=== PATIENT | female | born 1970 | race Caucasian/White ===

== ENCOUNTER 2020-03-29 09:05 | Outpatient (REF) | payer OTHER, SELFPAY ==
--- NOTE | 2020-03-29 | US_ITS ---
EXAMINATION: US THYROID CLINICAL INFORMATION: Nontoxic multinodular goiter. COMPARISON: Ultrasound thyroid 09/11/2019 and 04/20/2019. TECHNIQUE: Linear transducer deng-scale and color Doppler examination with attention to the region of the thyroid. FINDINGS: SIZE: Measurements of the thyroid lobes and nodules are given in sagittal, anteroposterior and transverse dimensions respectively. Right thyroid lobe: 4.9 x 2.3 x 2.2 cm, volume 13.0 mL. Previously 5.3 x 2.5 x 2.0 cm, volume 14.0 mL. Left thyroid lobe: 4.1 x 1.2 x 1.7 cm, volume 4.4 mL. Previously 4.6 x 1.2 x 1.4 cm, volume 4.0 mL. Isthmus: 0.5 cm in maximum AP dimension. Previously 0.5 cm. PARENCHYMA: The gland echotexture is homogeneous. Thyroid vascularity is normal. RIGHT THYROID LOBE: There is 1 nodule seen. 1. Location: Mid. Size: 1.9 x 1.6 x 1.8 cm. Previous: 2.0 x 1.7 x 1.7 cm. Nodule characteristics: Heterogeneous and complex cystic, smooth margin with hypoechoic rind, no calcification and positive intranodular flow. ISTHMUS: No nodules. LEFT THYROID LOBE: There are 3 nodules seen. 1. Location: Upper. Size: 0.5 x 0.3 x 0.5 cm. Previous: 0.4 x 0.3 x 0.4 cm. Nodule characteristics: Hypoechoic, slightly irregular margin, no calcification and no intranodular flow. 2. Location: Mid. Size: 0.4 x 0.3 x 0.4 cm. Previous: 0.3 x 0.4 x 0.5 cm. Nodule characteristics: Hypoechoic and cystic, smooth margin, peripheral calcification and no intranodular flow. Ultrasound appearance is suggestive of a colloid cyst.. 3. Location: Lower pole. Size: 0.5 x 0.4 x 0.5 cm. Previous: 0.4 x 0.3 x 0.2 cm. Nodule characteristics: Hypoechoic and heterogeneous, slightly irregular margin, no calcification and no intranodular flow. NODES: No lymphadenopathy is seen in the tissue surrounding the thyroid gland. US/US thyroid IMPRESSION: Question interval increase in size and complexity of the small nodule in the inferior left lobe. Otherwise thyroid nodules do not appear appreciably changed..
== END 2020-03-29 09:06 | disposition home or self-care (01) ==
LOC: HO.US 09:05
PROVIDERS: PCP Internal Medicine; Visit Provider Internal Medicine Endocrinology, Diabetes & Metabolism
DX: E04.2 Nontoxic multinodular goiter (principal)
CPT/HCPCS: 76536

== ENCOUNTER → 2020-03-31 08:04 | Outpatient (BNVA) | payer OTHER, SELFPAY | PROVIDERS: PCP Internal Medicine; Visit Provider Internal Medicine Endocrinology, Diabetes & Metabolism | DX: E11.65 Type 2 diabetes mellitus with hyperglycemia (principal); E04.2 Nontoxic multinodular goiter; I10 Essential (primary) hypertension; E78.00 Pure hypercholesterolemia, unspecified; E66.9 Obesity, unspecified; E11.40 Type 2 diabetes mellitus with diabetic neuropathy, unspecified; E11.21 Type 2 diabetes mellitus with diabetic nephropathy | CPT/HCPCS: 82947; 99212 ==

== ENCOUNTER 2020-04-27 11:12 | Outpatient (REF) | payer OTHER, SELFPAY | END 2020-04-27 11:13 | disposition home or self-care (01) | LOC: HO.LAB 11:12 | PROVIDERS: PCP Internal Medicine; Visit Provider Internal Medicine | DX: Z20.822 Contact with and (suspected) exposure to COVID-19 (principal) | CPT/HCPCS: 36415; C9803; U0003; U0005 ==

== ENCOUNTER 2020-07-29 09:08 | Outpatient (REF) | payer OTHER, SELFPAY ==
--- NOTE | ~2020-07-29 | MM_ITS ---
EXAMINATION: MM SCREENING DIGITAL BREAST TOMOSYNTHESIS, BILATERAL CLINICAL INFORMATION: Screening. Asymptomatic. The lifetime risk of breast cancer based on the Tyrer-Cuzick Model is 5.7%. COMPARISON: Mammography: May 18, 2019 and studies dating back to April 05, 2015 TECHNIQUE: Digital breast tomosynthesis is performed in both the craniocaudal and mediolateral oblique views along with computer-aided detection (CAD). Synthesized 2D images are generated from the tomosynthesis. FINDINGS: The breasts are heterogeneously dense, which may obscure small masses (ACR BI-RADS breast composition Category c). There are no significant masses, abnormal calcifications, or other abnormalities. MM/MM tomosynthesis screening BI IMPRESSION: There are no significant changes from prior study. ASSESSMENT: BI-RADS 1: Negative RECOMMENDATION: Routine annual mammography screening. This patient's information was entered into a reminder system with a target due date for their next mammogram.
== END 2020-07-29 09:09 | disposition home or self-care (01) ==
LOC: HO.MAMMO 09:08
PROVIDERS: Visit Provider Internal Medicine
DX: Z12.31 Encounter for screening mammogram for malignant neoplasm of breast (principal)
CPT/HCPCS: 77063; 77067

== ENCOUNTER 2020-09-21 10:04 | Outpatient (REF) | payer OTHER, SELFPAY ==
--- NOTE | ~2020-09-21 | US_ITS ---
EXAMINATION: US THYROID CLINICAL INFORMATION: Type 2 diabetes mellitus with hyperglycemia. COMPARISON: Thyroid ultrasound 03/29/2020 and 09/11/2019. Ultrasound-guided thyroid biopsy 05/21/2019. TECHNIQUE: Linear transducer grayscale and color Doppler examination with attention to the region of the thyroid. FINDINGS: SIZE: Measurements of the thyroid lobes and nodules are given in sagittal, anteroposterior and transverse dimensions respectively. Right Thyroid Lobe: 5.1 x 2.4 x 2.4 cm, volume 15.3 mL. Previously 4.9 x 2.3 x 2.2 cm, volume 13.0 mL. Parenchyma: The gland echotexture is homogeneous. Thyroid vascularity is normal. Left Thyroid Lobe: 3.8 x 1.3 x 1.8 cm, volume 4.7 mL. Previously 4.1 x 1.2 x 1.7 cm, volume 4.4 mL. Parenchyma: The gland echotexture is homogeneous. Thyroid vascularity is normal. Isthmus: 0.6 cm in maximum AP dimension. Previously 0.5 cm. Estimated total number of nodules greater than or equal to 1 cm: 1. Guest Relation Officer nodules are described as follows: 1. Location: Right mid pole. Size: 1.9 x 1.5 x 1.7 cm, volume 2.53 mL. Previously: 1.9 x 1.6 x 1.8 cm, volume 2.86 mL. Nodule characteristics: Composition: Mixed cystic and solid (1). Echogenicity: Hypoechoic (2). Shape: Not taller than wide (0). Margins: Smooth (0). Echogenic Foci: None (0). ACR TI-RADS total points: 3 ACR TI-RADS category: 3 Significant change in size (>/= 20% in 2 dimensions and minimal increase of 2 mm or 50% or greater increase in volume): No Change in features: No Change in ACR TI-RADS risk category: n/a 2. Location: Left upper pole. Size: 0.4 x 0.3 x 0.3 cm, volume 0.02 mL. Previously: 0.5 x 0.3 x 0.5 cm, volume 0.04 mL. Nodule characteristics: Composition: Solid (2). Echogenicity: Hypoechoic (2). Shape: Not taller than wide (0). Margins: Smooth (0). Echogenic Foci: None (0). ACR TI-RADS total points: 4 ACR TI-RADS category: 4 Significant change in size (>/= 20% in 2 dimensions and minimal increase of 2 mm or 50% or greater increase in volume): No Change in features: No Change in ACR TI-RADS risk category: n/a 3. Location: Left mid pole. Size: 0.5 x 0.3 x 0.4 cm, volume 0.03 mL. Previously: 0.4 x 0.3 x 0.4 cm, volume 0.02 mL. Nodule characteristics: Composition: Cystic(0). ACR TI-RADS total points: 0 ACR TI-RADS category: 1 Significant change in size (>/= 20% in 2 dimensions and minimal increase of 2 mm or 50% or greater increase in volume): No Change in features: No Change in ACR TI-RADS risk category: n/a NODES: No lymphadenopathy is seen in the tissue surrounding the thyroid gland. US/US thyroid IMPRESSION: 1. Homogeneous thyroid parenchyma with mild asymmetric right thyroid enlargement to the nodularity. 2. Bilateral thyroid nodules are redemonstrated with the largest again noted within the mid right thyroid measuring up to 1.9 cm with ultrasound characteristics consistent with TI-RADS Category 3. Findings are not significantly changed when compared to the prior examination. Given size of the nodule, continued follow-up at 3 and 5 years from the date of the initial ultrasound on 04/20/2019 is recommended. 3. Additional nodules do not meet size criteria for follow-up. No new thyroid nodule. ACR TI-RADS RECOMMENDATION REFERENCE: Ultrasound-guided fine-needle aspiration, followup ultrasound, no further follow up. * TR1 (0 point) and TR 2 (2 points): No FNA or follow up * TR3 (3 points): FNA if more than or equal to 2.5 cm in maximum dimension, followup ultrasound in 1, 3 and 5 years if 1.5 to 2.4 cm in maximum dimension. * TR4 (4-6 points): FNA if more than or equal to 1.5 cm in maximum dimension, followup ultrasound in 1, 2, 3 and 5 years if 1 to 1.4 cm in maximum dimension. * TR5 (more than or equal to 7 points): FNA if more than or equal to 1 cm in maximum dimension, followup ultrasound every year for 5 years if 0.5 to 0.9 cm in maximum dimension. * TR3, TR4 or TR5 nodules that are below the size threshold for follow up receive no follow up.
== END 2020-09-21 10:05 | disposition home or self-care (01) ==
LOC: HO.US 10:04
PROVIDERS: PCP Internal Medicine; Visit Provider Internal Medicine Endocrinology, Diabetes & Metabolism
DX: E04.2 Nontoxic multinodular goiter (principal); E11.65 Type 2 diabetes mellitus with hyperglycemia
CPT/HCPCS: 76536

== ENCOUNTER → 2020-09-29 08:28 | Outpatient (BNVA) | payer OTHER, SELFPAY | PROVIDERS: PCP Internal Medicine; Visit Provider Internal Medicine Endocrinology, Diabetes & Metabolism | DX: E11.65 Type 2 diabetes mellitus with hyperglycemia (principal); E11.40 Type 2 diabetes mellitus with diabetic neuropathy, unspecified; E11.21 Type 2 diabetes mellitus with diabetic nephropathy; E04.2 Nontoxic multinodular goiter; E78.00 Pure hypercholesterolemia, unspecified; E66.9 Obesity, unspecified; I10 Essential (primary) hypertension | CPT/HCPCS: 82947; 99212 ==

== ENCOUNTER 2020-11-03 08:01 | Outpatient (REF) | payer OTHER, SELFPAY ==
[2020-11-03 09:02] LABS: MANUAL DIFF FLAG NO
[2020-11-03 09:05] LABS: Basophils Absolute Auto 0.1 X10*3/uL (0.0-0.2); Basophils Percent Auto 0.7 % (0-2); Eosinophils Absolute Auto 0.2 X10*3/uL (0.0-0.4); Eosinophils Percent Auto 2.1 % (0-4); Hematocrit 41.9 % (37-47); Hemoglobin 12.9 g/dl (12.0-16.0); Imm Gran Abs Auto 0.03 X10*3/uL (0.00-0.03); Imm Gran Pct Auto 0.4 % (0.0-0.4); Lymphocytes Absolute Auto 1.7 X10*3/uL (1.2-4.9); Lymphocytes Percent Auto 20.5 % (20-40); Mean Corpuscular HGB Conc 30.8 g/dl (31.0-35.0); Mean Corpuscular Hemoglobin 26.8 pg (27.0-33.0); Mean Corpuscular Volume 87.1 fL (80-98); Mean Platelet Volume 10.9 fL (9.4-12.3); Monocytes Absolute Auto 0.5 X10*3/uL (0.1-1.2); Monocytes Percent Auto 6.5 % (2-11); Neutrophils Absolute Auto 5.8 X10*3/uL (2.0-8.3); Neutrophils Percent Auto 69.8 % (45-73); Platelet Count 271 X10*3/uL (160-400); Red Blood Count 4.81 X10*6/uL (4.20-5.50); Red Cell Distribution Width 14.8 % (11.0-16.0); White Blood Count 8.3 X10*3/uL (4.8-10.8)
[2020-11-03 09:23] LABS: Estimated Average Glucose 140 mg/dL; Hemoglobin A1c % 6.5 %
[2020-11-03 09:48] LABS: Alanine Aminotransferase 17 U/L (0-31); Albumin Level 4.1 g/dL (3.5-5.0); Alkaline Phosphatase 98 U/L (39-117); Anion Gap 12 (12-20); Aspartate Amino Transferase 11 U/L (5-31); Bilirubin Total 0.6 mg/dL (0.0-1.0); Blood Urea Nitrogen 13 mg/dL (9-16); Calcium 9.5 mg/dL (8.4-10.2); Carbon Dioxide 28 mmol/L (22-29); Chloride 103 mmol/L (96-108); Cholesterol 140 mg/dL; Estimated Glomerular Filt Rate 47; Glucose Random 112 mg/dL (60-115); HDL Cholesterol 48 mg/dL; LDL Cholesterol Calculated 66 mg/dl; Potassium 4.1 mmol/L (3.3-5.1); Sodium 139 mmol/L (135-145); Thyroid Stimulating Hormone 1.63 uIU/mL (0.32-4.0); Total Protein 7.4 g/dL (6.5-8.0); Triglycerides 134 mg/dL; Vitamin D 25-OH Total 44.3 ng/mL (>30)
[2020-11-03 09:49] LABS: Free T4 (Free Thyroxine) 1.02 ng/dL (0.71-1.85)
[2020-11-03 09:52] LABS: Microalbum/Creatinine Ratio Ur 66.8 ug/mg cr
[2020-11-03 09:55] LABS: Folate 13.2 ng/mL (> or = 4.0); Vitamin B12 350 pg/mL (200-900)
[2020-11-05 06:56] LABS: Thyroid Peroxidase Antibodies 5 IU/mL (<9)
== END 2020-11-03 08:02 | disposition home or self-care (01) ==
LOC: HO.LAB 08:01
PROVIDERS: Internal Medicine Endocrinology, Diabetes & Metabolism; PCP Internal Medicine; Visit Provider Internal Medicine
DX: I10 Essential (primary) hypertension (principal); E78.00 Pure hypercholesterolemia, unspecified; E11.65 Type 2 diabetes mellitus with hyperglycemia; E04.2 Nontoxic multinodular goiter
CPT/HCPCS: 36415; 80053; 80061; 82043; 82306; 82607; 82746; 83036; 84439; 84443; 85025; 86376

== ENCOUNTER 2020-11-18 15:13 | Inpatient (IN) | payer OTHER, SELFPAY ==
--- NOTE | ~2020-11-18 | CT_ITS ---
EXAMINATION: CT ANGIOGRAM OF THE CHEST WITH AND WITHOUT CONTRAST (CT PULMONARY ANGIOGRAM FOR PE) CLINICAL INFORMATION: Shortness of breath. Evaluate for pulmonary embolism. COMPARISON: Chest radiograph dated from 12/14/2020. TECHNIQUE: Prior to contrast administration, noncontrast localization images were obtained. Subsequently, multidetector volumetric imaging was performed from the thoracic inlet to below the diaphragms following the administration of 80 mL Omnipaque 350 intravenous contrast. No contrast reaction reported Sagittal, coronal, and MIP oblique sagittal reformatted images were obtained on the CT workstation, uploaded to PACS, and reviewed. This CT examination was performed using dose optimization techniques as appropriate, variously including the following: *Automated exposure control *Adjustment of mA and/or kV according to patient size (this includes techniques or standardized protocols for targeted exams where dose is matched to indication/reason for exam; i.e. extremities or head) *Use of iterative reconstruction technique Total exam dose-length product 309 mGy-cm FINDINGS: QUALITY OF STUDY/CONTRAST BOLUS: Satisfactory. PULMONARY ARTERIES: No central or segmental pulmonary emboli. Subsegmental branches are suboptimally evaluated due to overlying airspace opacities. THORACIC AORTA: No aneurysm or dissection. LUNG: Extensive groundglass and patchy opacities throughout both lungs with more denser opacities in the posterior aspect of the left upper and left lower lobes. The main airways are patent. PLEURA: Small amount of bilateral pleural fluid. No pneumothorax. MEDIASTINUM: Normal heart size. No pericardial effusion. No hilar or mediastinal lymphadenopathy. No evidence of septal bowing or right heart strain. CHEST WALL/AXILLA: No axillary or internal mammary lymphadenopathy. OSSEOUS STRUCTURES: No acute or suspicious osseous abnormality. UPPER ABDOMEN: Cholecystectomy. Indeterminate calcification in the surface of the right hepatic lobe (44:7) could potentially represent a dropped stone. No reflux of contrast into the hepatic veins to suggest elevated right heart pressures. CT/CT angio chest PE protocol IMPRESSION: No evidence of pulmonary emboli. Extensive airspace opacities bilaterally, worrisome for multifocal infection and acute respiratory distress syndrome in the appropriate clinical context. VTE: Negative.
--- NOTE | ~2020-11-18 | XR_ITS ---
EXAMINATION: XR CHEST CLINICAL INFORMATION: Shortness of breath COMPARISON: None TECHNIQUE: Frontal view of the chest was obtained. FINDINGS: Extensive patchy bilateral airspace opacities are present. No pleural effusion. No pneumothorax. Normal heart size. Regional skeleton intact. XR/XR chest 1V IMPRESSION: Extensive patchy bilateral airspace opacities concerning for multifocal pneumonia. Alveolar pulmonary edema, pulmonary hemorrhage, or other etiologies could be considered in the appropriate clinical setting.
--- NOTE | ~2020-11-18 | XR_ITS ---
EXAMINATION: XR CHEST CLINICAL INFORMATION: Hypoxia. COMPARISON: Most recent chest regressed dated 11/18/2020. TECHNIQUE: Frontal view of the chest was obtained. FINDINGS: Diffuse, patchy bilateral airspace opacities which have slightly increased when compared to the prior examination. No pleural effusion or pneumothorax. Stable cardiomediastinal silhouette. No acute osseous abnormality. XR/XR chest 1V IMPRESSION: Diffuse, patchy bilateral airspace opacities, slightly increased when compared to the examination dated 11/18/2020. Findings can be seen in the setting of an infectious or inflammatory process, including viral pneumonia.
[2020-11-18 15:53] VITALS: BP 113/63; PULSE 90; RESP 16; TEMP 36.9; O2SAT 85; BMI 26.0
--- NOTE | 2020-11-18 15:58 | PC.NURSE ---
Patient on 3L sating 94.
--- NOTE | 2020-11-18 16:00 | ECG_ITS ---
Test Reason : DYSPNEA Blood Pressure : / mmHG Vent. Rate : 084 BPM Atrial Rate : 084 BPM P-R Int : 150 ms QRS Dur : 074 ms QT Int : 368 ms P-R-T Axes : 053 -19 009 degrees QTc Int : 434 ms Normal sinus rhythm Possible Left atrial enlargement Borderline ECG When compared with ECG of 05-SEP-2011 07:12, Vent. rate has increased BY 33 BPM Referred By: Generic ED Physician Electronically Signed By:VASILE MARVIN
[2020-11-18 17:07] LABS: MANUAL DIFF FLAG NO
[2020-11-18 17:09] LABS: Basophils Percent Auto 0.2 % (0-2); Hematocrit 43.6 % (37-47); Hemoglobin 13.9 g/dl (12.0-16.0); Imm Gran Abs Auto 0.03 X10*3/uL (0.00-0.03); Imm Gran Pct Auto 0.5 % (0.0-0.4); Lymphocytes Absolute Auto 0.7 X10*3/uL (1.2-4.9); Lymphocytes Percent Auto 10.1 % (20-40); Mean Corpuscular HGB Conc 31.9 g/dl (31.0-35.0); Mean Corpuscular Volume 84.8 fL (80-98); Mean Platelet Volume 10.6 fL (9.4-12.3); Monocytes Absolute Auto 0.2 X10*3/uL (0.1-1.2); Monocytes Percent Auto 3.2 % (2-11); Neutrophils Absolute Auto 5.7 X10*3/uL (2.0-8.3); Platelet Count 156 X10*3/uL (160-400); Red Blood Count 5.14 X10*6/uL (4.20-5.50); White Blood Count 6.6 X10*3/uL (4.8-10.8)
[2020-11-18 17:34] LABS: Anion Gap 12 (12-20); Blood Urea Nitrogen 14 mg/dL (9-16); Calcium 9.2 mg/dL (8.4-10.2); Carbon Dioxide 28 mmol/L (22-29); Chloride 103 mmol/L (96-108); Estimated Glomerular Filt Rate 43; Glucose Random 130 mg/dL (60-115); Sodium 139 mmol/L (135-145)
[2020-11-18 17:39] LABS: B Type Natriuretic Peptide 22 pg/mL (<100)
[2020-11-18 18:30] LABS: Alanine Aminotransferase 21 U/L (0-31); Albumin Level 3.9 g/dL (3.5-5.0); Alkaline Phosphatase 61 U/L (39-117); Aspartate Amino Transferase 31 U/L (5-31); Bilirubin Direct 0.2 mg/dL (0.0-0.5); Bilirubin Total 0.5 mg/dL (0.0-1.0); Total Protein 7.4 g/dL (6.5-8.0)
--- NOTE | 2020-11-18 18:47 | ED.SOB ---
HPI - SOB/Dyspnea General Chief Complaint: Dyspnea Stated Complaint: covid + Time Seen by Provider: 11/18/20 18:04 Source: patient Mode of arrival: ambulatory Limitations: no limitations History of Present Illness HPI Narrative: 50-year-old female who presents emergency department for evaluation of shortness of breath. She states that she had a positive COVID test on 11/12/2020. The patient states she has been sick since November 09, 2020 (9 days). She states that she initially developed headache and fatigue. She now has a nonproductive cough, subjective fever, chills, and dyspnea on exertion. She states that she walks 10-15 feet she gets very winded. She states that she has been eating and drinking well. She denied chest pain, abdominal pain, diarrhea, loss of sense of taste or smell. Related Data Home Medications Medication Instructions Recorded Confirmed clonazepam 1 mg tablet 1 mg PO BID PRN 03/31/20 11/18/20 divalproex 500 mg tablet,delayed 500 mg PO BID 03/31/20 11/18/20 release escitalopram oxalate 20 mg tablet 20 mg PO DAILY 03/31/20 11/18/20 losartan 100 mg tablet 100 mg PO DAILY 09/29/20 11/18/20 atorvastatin 10 mg tablet 10 mg PO DAILY 11/18/20 11/18/20 Previous Rx's Medication Instructions Recorded cholecalciferol (vitamin D3) 50 50 mcg PO DAILY #90 tab 03/21/20 mcg (2,000 unit) tablet (Vitamin D3) empagliflozin 12.5 mg-metformin ER 2 tab PO DAILY 30 Days #60 ea 09/29/20 1,000 mg tablet,extended rel 24 hr (Synjardy XR) pioglitazone 15 mg tablet 15 mg PO DAILY 90 Days #90 tab 09/29/20 atenolol 50 mg tablet 50 mg PO DAILY #180 tab 10/13/20 amlodipine 5 mg tablet 5 mg PO DAILY 90 Days #90 tab 11/10/20 aspirin 81 mg tablet,delayed 81 mg PO DAILY #90 tab 11/11/20 release (Adult Aspirin Regimen) Allergies Allergy/AdvReac Type Severity Reaction Status Date / Time egg Allergy Unknown throat Verified 11/10/20 08:40 swells up lisinopril Allergy Unknown Unknown Verified 11/10/20 08:40 metformin [METFORMIN] Allergy Unknown TACHYCARDIA Verified 11/10/20 08:40 AND DIARRHEA milk Allergy Unknown throat Verified 11/10/20 08:40 swells up Review of Systems Review of Systems: Yes all other systems are reviewed and are negative [facility] Past Medical History [facility] Narrative: Social history: She denies tobacco use. She denies alcohol use. She denies drug use. Medical History Acute meniscal tear of right knee Anxiety and depression Bilateral carpal tunnel syndrome Diabetic nephropathy Diabetic nephropathy associated with type 2 diabetes mellitus Diabetic neuropathy associated with type 2 diabetes mellitus GERD (gastroesophageal reflux disease) Hypercholesterolemia Hypertension Insomnia Obesity (BMI 30-39.9) Osteoarthritis Psoriasis Right thyroid nodule Type 2 diabetes mellitus with hyperglycemia Surgical History History of section History of cholecystectomy History of D&C History of tubal ligation Family History Family History Father Medical history unknown Mother Diabetes Hypertension Maternal Grandmother Pancreatic cancer Maternal Aunt Breast cancer Sister Breast cancer Other Substance use disorder Social History Social History Housing: Apartment (town house) Alcohol intake: never Patient Tobacco Use Status: Never used Tobacco e-Cigarette/Vaping Use: Never Used Second Hand Smoke Exposure: Yes Use of substances other than those prescribed or required for medical reasons: No Advance Directives: No Advance Directives Information Provided: No service: No Current occupational status: disabled Physical Exam Vital Signs: Vital Signs: Last Vital Signs Temp 102.2 F H 11/18/20 20:08 Pulse 84 11/18/20 23:23 Resp 32 H 11/18/20 23:23 BP 137/83 11/18/20 23:23 Pulse Ox 93 11/18/20 23:23 Body Mass Index 26.0 Const: General: cooperative and no acute distress Orientation/consciousness: oriented to person and oriented to place Limitations: no limitations HENMT: Head: Yes normal to inspection, Yes normocephalic and Yes atraumatic Ears: external ears normal General nose exam: Normal external nose present Face and sinus: Yes normal facial exam Mouth: Normal oral and palatal mucosa present Throat: Yes posterior oropharynx normal Eyes: General: appearance normal, both eyes and all related structures Pupils: Equal, round and reactive pupils present Neck: Neck: Yes normal visual inspection, Yes no lymphadenopathy, Yes trachea midline and Yes supple Chest: Chest palpation & inspection: normal inspection of the chest and normal palpation of entire chest wall Resp: Effort & Inspection: normal respiratory effort and able to speak in complete sentences Auscultation: clear to auscultation bilaterally Cardio: Rate: regular rate Rhythm: regular rhythm Heart sounds: S1 normal heart sound present, S2 normal heart sound present and no murmurs GI: Inspection: Yes normal to inspection Palpation (GI): Soft to palpation, nontender and no guarding Auscultation: normal bowel sounds : General: Yes no CVA tenderness Back/Spine/Pelvis: Back: no CVA tenderness Skin: General skin exam: no rashes or lesions noted Neuro: General: oriented to person and oriented to place Cranial nerves: Yes CN's II-XII intact bilaterally and Yes Equal, round and reactive pupils present Cognition (Neuro): normal cognition Motor exam (neuro): 5/5 motor strength present throughout Extrem: General: Yes normal to inspection Psych: Appearance: grossly normal Speech and movement: Normal speech and movement present Affect: normal affect Attitude: cooperative Thought process: Normal thought process present Thought content: Normal thought content present Course Course Course Narrative: 50-year-old female who tested COVID positive on 11/12/2020 he has been sick since 11/09/2020 (9 days) who presents emergency department for pneumonia like symptoms which include dyspnea on exertion, fever, chills, cough fatigue and headache. That she was afebrile, she had a normal respiratory rate and a normal blood pressure. Her O2 saturation however was 85% on room air and improved to 96-100% on 4 L via nasal cannula. Her exam is otherwise unremarkable. Laboratory evaluation revealed a low platelet count of a 121378, elevated glucose of 130. Patient's high sensitivity troponin I was detectable but not elevated at 9. The patient's chest x-ray is concerning for a multi lobe all pneumonia which is consistent with COVID-19 pneumonia. I did order more blood work on the patient to include lactic acid, blood cultures x2, procalcitonin, CRP, ferritin, LDH. The patient will be treated with antibiotics for possible bacterial infection with ceftriaxone 1 g IV and azithromycin 500 mg IV. She was also ordered to get dexamethasone 10 mg IV. Given the fact that the patient is hypoxic she will need to be admitted for oxygen therapy and further management of her COVID-19 pneumonia. I will discuss the patient's presentation with the covering hospitalist. 1939: I did discuss the patient's presentation with the covering hospitalist, Dr. Riley and the patient will be managed on the hospital service. The patient will be admitted to intermediate care unit. MDM - SOB/Dyspnea Lab Data Result diagrams: 11/18/20 16:57 11/18/20 16:57 Labs: Lab Results 11/18/20 11/18/20 11/18/20 Range/Units 16:57 16:57 16:57 WBC 6.6 (4.8-10.8) X10*3/uL RBC 5.14 (4.20-5.50) X10*6/uL Hgb 13.9 (12.0-16.0) g/dl Hct 43.6 (37-47) % MCV 84.8 (80-98) fL MCH 27.0 (27.0-33.0) pg MCHC 31.9 (31.0-35.0) g/dl RDW 15.0 (11.0-16.0) % Plt Count 156 L D (160-400) X10*3/uL MPV 10.6 (9.4-12.3) fL Immature Gran % (Auto) 0.5 H (0.0-0.4) % Neut % (Auto) 86.0 H (45-73) % Lymph % (Auto) 10.1 L (20-40) % [place] % (Auto) 3.2 (2-11) % Eos % (Auto) 0.0 (0-4) % Baso % (Auto) 0.2 (0-2) % Lymph # (Auto) 0.7 L (1.2-4.9) X10*3/uL [place] # (Auto) 0.2 (0.1-1.2) X10*3/uL Eos # (Auto) 0.0 (0.0-0.4) X10*3/uL Baso # (Auto) 0.0 (0.0-0.2) X10*3/uL Abs Immat Gran (auto) 0.03 (0.00-0.03) X10*3/uL Absolute Neuts (auto) 5.7 (2.0-8.3) X10*3/uL Absolute Nucleated RBC 0.000 (0.0-0.012) X10*3/uL Nucleated RBC % (auto) 0.0 (0.0-0.2) /100WBC PT (9.9-13.0) SEC INR (0.9-1.1) D-Dimer NG/ML Sodium 139 (135-145) mmol/L Potassium 4.0 (3.3-5.1) mmol/L Chloride 103 (96-108) mmol/L Carbon Dioxide 28 (22-29) mmol/L Anion Gap 12 (12-20) BUN 14 (9-16) mg/dL Creatinine 1.29 (0.5-1.4) mg/dL Estim Creat Clear Calc 57.0 Estimated GFR 43 Random Glucose 130 H (60-115) mg/dL Lactic Acid (0.5-2.0) mmol/L Calcium 9.2 (8.4-10.2) mg/dL Ferritin (10-250) ng/mL Total Bilirubin 0.5 (0.0-1.0) mg/dL Direct Bilirubin 0.2 (0.0-0.5) mg/dL AST 31 D (5-31) U/L ALT 21 (0-31) U/L Alkaline Phosphatase 61 D (39-117) U/L Lactate Dehydrogenase (122-220) U/L Troponin I High Sens 9.0 (<3.5-17.0) ng/L C-Reactive Protein (< or = 0.50) mg/dL B-Natriuretic Peptide 22 (<100) pg/mL Total Protein 7.4 (6.5-8.0) g/dL Albumin 3.9 (3.5-5.0) g/dL Procalcitonin ng/mL Urine Color Urine Appearance Urine pH (5.0-8.0) Ur Specific [place] (1.005-1.025) Urine Protein (NEG-TRACE) MG/DL Urine Glucose (UA) (NEG) MG/DL Urine Ketones (NEG) MG/DL Urine Blood (NEG) Urine Nitrite (NEG) Ur Leukocyte Esterase (NEG) Urine RBC (0) /HPF Urine WBC (0-4) /HPF Ur Squamous Epith Cells /LPF Urine Bacteria /LPF Coronavirus (PCR) (Negative) Influenza Type A (PCR) (Negative) Influenza Type B (PCR) (Negative) RSV RNA Qual (PCR) (Negative) 11/18/20 11/18/20 11/18/20 Range/Units 19:01 19:02 19:02 WBC (4.8-10.8) X10*3/uL RBC (4.20-5.50) X10*6/uL Hgb (12.0-16.0) g/dl Hct (37-47) % MCV (80-98) fL MCH (27.0-33.0) pg MCHC (31.0-35.0) g/dl RDW (11.0-16.0) % Plt Count (160-400) X10*3/uL MPV (9.4-12.3) fL Immature Gran % (Auto) (0.0-0.4) % Neut % (Auto) (45-73) % Lymph % (Auto) (20-40) % [place] % (Auto) (2-11) % Eos % (Auto) (0-4) % Baso % (Auto) (0-2) % Lymph # (Auto) (1.2-4.9) X10*3/uL [place] # (Auto) (0.1-1.2) X10*3/uL Eos # (Auto) (0.0-0.4) X10*3/uL Baso # (Auto) (0.0-0.2) X10*3/uL Abs Immat Gran (auto) (0.00-0.03) X10*3/uL Absolute Neuts (auto) (2.0-8.3) X10*3/uL Absolute Nucleated RBC (0.0-0.012) X10*3/uL Nucleated RBC % (auto) (0.0-0.2) /100WBC PT 12.5 (9.9-13.0) SEC INR 1.1 (0.9-1.1) D-Dimer 1313 NG/ML Sodium (135-145) mmol/L Potassium (3.3-5.1) mmol/L Chloride (96-108) mmol/L Carbon Dioxide (22-29) mmol/L Anion Gap (12-20) BUN (9-16) mg/dL Creatinine (0.5-1.4) mg/dL Estim Creat Clear Calc Estimated GFR Random Glucose (60-115) mg/dL Lactic Acid 2.6 H* (0.5-2.0) mmol/L Calcium (8.4-10.2) mg/dL Ferritin 1147 H (10-250) ng/mL Total Bilirubin (0.0-1.0) mg/dL Direct Bilirubin (0.0-0.5) mg/dL AST (5-31) U/L ALT (0-31) U/L Alkaline Phosphatase (39-117) U/L Lactate Dehydrogenase 622 H (122-220) U/L Troponin I High Sens (<3.5-17.0) ng/L C-Reactive Protein 13.08 H (< or = 0.50) mg/dL B-Natriuretic Peptide (<100) pg/mL Total Protein (6.5-8.0) g/dL Albumin (3.5-5.0) g/dL Procalcitonin ng/mL Urine Color Urine Appearance Urine pH (5.0-8.0) Ur Specific [place] (1.005-1.025) Urine Protein (NEG-TRACE) MG/DL Urine Glucose (UA) (NEG) MG/DL Urine Ketones (NEG) MG/DL Urine Blood (NEG) Urine Nitrite (NEG) Ur Leukocyte Esterase (NEG) Urine RBC (0) /HPF Urine WBC (0-4) /HPF Ur Squamous Epith Cells /LPF Urine Bacteria /LPF Coronavirus (PCR) (Negative) Influenza Type A (PCR) (Negative) Influenza Type B (PCR) (Negative) RSV RNA Qual (PCR) (Negative) 11/18/20 11/18/20 11/18/20 Range/Units 19:02 19:02 19:03 WBC (4.8-10.8) X10*3/uL RBC (4.20-5.50) X10*6/uL Hgb (12.0-16.0) g/dl Hct (37-47) % MCV (80-98) fL MCH (27.0-33.0) pg MCHC (31.0-35.0) g/dl RDW (11.0-16.0) % Plt Count (160-400) X10*3/uL MPV (9.4-12.3) fL Immature Gran % (Auto) (0.0-0.4) % Neut % (Auto) (45-73) % Lymph % (Auto) (20-40) % [place] % (Auto) (2-11) % Eos % (Auto) (0-4) % Baso % (Auto) (0-2) % Lymph # (Auto) (1.2-4.9) X10*3/uL [place] # (Auto) (0.1-1.2) X10*3/uL Eos # (Auto) (0.0-0.4) X10*3/uL Baso # (Auto) (0.0-0.2) X10*3/uL Abs Immat Gran (auto) (0.00-0.03) X10*3/uL Absolute Neuts (auto) (2.0-8.3) X10*3/uL Absolute Nucleated RBC (0.0-0.012) X10*3/uL Nucleated RBC % (auto) (0.0-0.2) /100WBC PT (9.9-13.0) SEC INR (0.9-1.1) D-Dimer NG/ML Sodium (135-145) mmol/L Potassium (3.3-5.1) mmol/L Chloride (96-108) mmol/L Carbon Dioxide (22-29) mmol/L Anion Gap (12-20) BUN (9-16) mg/dL Creatinine (0.5-1.4) mg/dL Estim Creat Clear Calc Estimated GFR Random Glucose (60-115) mg/dL Lactic Acid (0.5-2.0) mmol/L Calcium (8.4-10.2) mg/dL Ferritin (10-250) ng/mL Total Bilirubin (0.0-1.0) mg/dL Direct Bilirubin (0.0-0.5) mg/dL AST (5-31) U/L ALT (0-31) U/L Alkaline Phosphatase (39-117) U/L Lactate Dehydrogenase (122-220) U/L Troponin I High Sens 12.5 (<3.5-17.0) ng/L C-Reactive Protein (< or = 0.50) mg/dL B-Natriuretic Peptide (<100) pg/mL Total Protein (6.5-8.0) g/dL Albumin (3.5-5.0) g/dL Procalcitonin 0.26 ng/mL Urine Color YELLOW Urine Appearance CLEAR Urine pH 6.0 (5.0-8.0) Ur Specific [place] 1.010 (1.005-1.025) Urine Protein 2+ H (NEG-TRACE) MG/DL Urine Glucose (UA) >=1000 H (NEG) MG/DL Urine Ketones NEG (NEG) MG/DL Urine Blood NEG (NEG) Urine Nitrite NEG (NEG) Ur Leukocyte Esterase NEG (NEG) Urine RBC 0-2 (0) /HPF Urine WBC 0-2 (0-4) /HPF Ur Squamous Epith Cells TRACE /LPF Urine Bacteria 1+ /LPF Coronavirus (PCR) (Negative) Influenza Type A (PCR) (Negative) Influenza Type B (PCR) (Negative) RSV RNA Qual (PCR) (Negative) 11/18/20 Range/Units 20:04 WBC (4.8-10.8) X10*3/uL RBC (4.20-5.50) X10*6/uL Hgb (12.0-16.0) g/dl Hct (37-47) % MCV (80-98) fL MCH (27.0-33.0) pg MCHC (31.0-35.0) g/dl RDW (11.0-16.0) % Plt Count (160-400) X10*3/uL MPV (9.4-12.3) fL Immature Gran % (Auto) (0.0-0.4) % Neut % (Auto) (45-73) % Lymph % (Auto) (20-40) % [place] % (Auto) (2-11) % Eos % (Auto) (0-4) % Baso % (Auto) (0-2) % Lymph # (Auto) (1.2-4.9) X10*3/uL [place] # (Auto) (0.1-1.2) X10*3/uL Eos # (Auto) (0.0-0.4) X10*3/uL Baso # (Auto) (0.0-0.2) X10*3/uL Abs Immat Gran (auto) (0.00-0.03) X10*3/uL Absolute Neuts (auto) (2.0-8.3) X10*3/uL Absolute Nucleated RBC (0.0-0.012) X10*3/uL Nucleated RBC % (auto) (0.0-0.2) /100WBC PT (9.9-13.0) SEC INR (0.9-1.1) D-Dimer NG/ML Sodium (135-145) mmol/L Potassium (3.3-5.1) mmol/L Chloride (96-108) mmol/L Carbon Dioxide (22-29) mmol/L Anion Gap (12-20) BUN (9-16) mg/dL Creatinine (0.5-1.4) mg/dL Estim Creat Clear Calc Estimated GFR Random Glucose (60-115) mg/dL Lactic Acid (0.5-2.0) mmol/L Calcium (8.4-10.2) mg/dL Ferritin (10-250) ng/mL Total Bilirubin (0.0-1.0) mg/dL Direct Bilirubin (0.0-0.5) mg/dL AST (5-31) U/L ALT (0-31) U/L Alkaline Phosphatase (39-117) U/L Lactate Dehydrogenase (122-220) U/L Troponin I High Sens (<3.5-17.0) ng/L C-Reactive Protein (< or = 0.50) mg/dL B-Natriuretic Peptide (<100) pg/mL Total Protein (6.5-8.0) g/dL Albumin (3.5-5.0) g/dL Procalcitonin ng/mL Urine Color Urine Appearance Urine pH (5.0-8.0) Ur Specific [place] (1.005-1.025) Urine Protein (NEG-TRACE) MG/DL Urine Glucose (UA) (NEG) MG/DL Urine Ketones (NEG) MG/DL Urine Blood (NEG) Urine Nitrite (NEG) Ur Leukocyte Esterase (NEG) Urine RBC (0) /HPF Urine WBC (0-4) /HPF Ur Squamous Epith Cells /LPF Urine Bacteria /LPF Coronavirus (PCR) POSITIVE A (Negative) Influenza Type A (PCR) NEGATIVE (Negative) Influenza Type B (PCR) NEGATIVE (Negative) RSV RNA Qual (PCR) NEGATIVE (Negative) Critical Care Time Critical Care Time Critical Care Time: Yes Total Critical Care Time: 55 Attestation: Critical Care: The patient was critically ill with a high probability of imminent or life threatening deterioration. I spent greater than 30 minutes of discontinuous time evaluating the patient,delivering critical care at the bedside, discussing and evaluating pertinent data with consultants. Critical care time does not include time spent performing separately billable procedures or teaching. Total time spent performing critical care was 55 minutes. Discharge Plan Discharge Clinical Impression: Pneumonia due to 2019-nCoV, Hypoxia Dyspnea Qualifiers: Dyspnea type: dyspnea on exertion Qualified Code(s): R06.00 - Dyspnea, unspecified Patient Disposition: Admitted As Inpatient
[2020-11-18] MEDS: dexAMETHasone sod phosphate 10 MG/ML VIAL IVPUSH (19:04)
[2020-11-18] MEDS: cefTRIAXone sodium 1 GM in 0.9 % Sodium Chloride 50 ML IV (19:08)
[2020-11-18 19:16] LABS: Appearance Urine CLEAR; Color Urine YELLOW; Glucose Urine UA >=1000 MG/DL (NEG); Leukocyte Esterase Urine NEG (NEG); Nitrite Urine NEG (NEG); UACC Culture Trigger NO; Urine Blood NEG (NEG); Urine Ketones NEG (NEG); Urine Protein 2+ MG/DL (NEG-TRACE)
[2020-11-18 19:25] LABS: INTERNATIONAL NORM RATIO 1.1 (0.9-1.1); Prothrombin Time 12.5 SEC (9.9-13.0)
[2020-11-18 19:31] LABS: C Reactive Protein 13.08 mg/dL (< or = 0.50); Lactate Dehydrogenase 622 U/L (122-220)
[2020-11-18 19:35] LABS: Troponin-I High Sensitivity 12.5 ng/L (<3.5-17.0)
[2020-11-18 19:36] LABS: Bacteria Urine 1+ /LPF; RBC Urine 0-2 /HPF (0); Squamous Epithelial Cell Urine TRACE /LPF; WBC Urine 0-2 /HPF (0-4)
[2020-11-18 19:37] LABS: Lactic Acid 2.6 mmol/L (0.5-2.0)
[2020-11-18] MEDS: Azithromycin 500 MG in 0.9 % Sodium Chloride 250 ML 125 MG IV (19:38)
[2020-11-18 19:49] LABS: Procalcitonin 0.26 ng/mL
[2020-11-18 19:53] LABS: Ferritin 1147 ng/mL (10-250)
[2020-11-18 20:04] LABS: D Dimer 1313 NG/ML
[2020-11-18 20:08] VITALS: BP 128/82; PULSE 90; RESP 16; TEMP 39; O2SAT 94
[2020-11-18] MEDS: Acetaminophen 325 MG TABLET 650 MG PO (21:08)
[2020-11-18 21:10] VITALS: BP 143/90; PULSE 94; RESP 38; O2SAT 93
[2020-11-18 21:10] LABS: Reflex Lactate? Lactic Acid Added
[2020-11-18 21:20] LABS: Influenza A PCR NEGATIVE (Negative); Influenza B PCR NEGATIVE (Negative); Resp Syncy Virus RNA Qual PCR NEGATIVE (Negative); SARS COV2 PCR INHOUSE POSITIVE (Negative)
--- NOTE | 2020-11-18 21:41 | P.HPHOSP_ITS ---
History of Present Illness Date of Service: 11/18/20 Chief Complaint: SOB Khmer-speaking only 50-year-old female with past medical history of diabetes, hypertension, hyperlipidemia, obesity, psoriasis among others presents to the hospital with complaints of shortness of breath, and worsening cough. Patient reports that she was diagnosed with COVID-19 on the 4th after having symptoms for few days prior to bed, she was isolating at home but her symptoms worsened and has developed severe cough as well as shortness of breath with very minimal activity. Patient otherwise denies any headache, no change in vision, no chest pain, no palpitations, no abdominal pain nausea or vomiting, no diarrhea or constipation, no urinary symptoms and no lower extremity edema. No numbness tingling. All other review of system negative On arrival to the ED patient's vitals were significant for temperature of 102.2?, heart rate of 90, respiratory rate of 16, blood pressure 128/82, satting 85% on room air Patient placed on O2 improving to the mid 90s on arrival remarkable for WBC count 6.6, lactic acid of 2.6, ferritin of 1147, LDH of 622, CRP of 13, UA negative, COVID-19 positive. Patchy bilateral airspace opacities concerning for multifocal pneumonia. Review of Systems Review of Systems: Yes all other systems are reviewed and are negative [facility] Medical History Acute meniscal tear of right knee Anxiety and depression Bilateral carpal tunnel syndrome Diabetic nephropathy Diabetic nephropathy associated with type 2 diabetes mellitus Diabetic neuropathy associated with type 2 diabetes mellitus GERD (gastroesophageal reflux disease) Hypercholesterolemia Hypertension Insomnia Obesity (BMI 30-39.9) Osteoarthritis Psoriasis Right thyroid nodule Type 2 diabetes mellitus with hyperglycemia Family History Father Medical history unknown Mother Diabetes Hypertension Maternal Grandmother Pancreatic cancer Maternal Aunt Breast cancer Sister Breast cancer Other Substance use disorder Surgical History History of section History of cholecystectomy History of D&C History of tubal ligation Social History Housing: Apartment ([facility] house) Alcohol intake: never Patient Tobacco Use Status: Never used Tobacco e-Cigarette/Vaping Use: Never Used Second Hand Smoke Exposure: Yes Use of substances other than those prescribed or required for medical reasons: No Advance Directives: No Advance Directives Information Provided: No service: No Current occupational status: disabled Meds Allergies Allergy/AdvReac Type Severity Reaction Status Date / Time egg Allergy Unknown throat Verified 11/10/20 08:40 swells up lisinopril Allergy Unknown Unknown Verified 11/10/20 08:40 metformin [METFORMIN] Allergy Unknown TACHYCARDIA Verified 11/10/20 08:40 AND DIARRHEA milk Allergy Unknown throat Verified 11/10/20 08:40 swells up Active Medications: Current Medications Generic Name Dose Route Start Last Admin Trade Name Freq PRN Reason Stop Dose Admin Acetaminophen 650 mg 11/18/20 20:53 Acetaminophen 325 Mg Tablet PO Q6H PRN Pain, Mild (Pain Scale 1-3) Dexamethasone Sodium Phosphate 4 mg 11/19/20 09:00 Dexamethasone Sod Phosphate 4 Mg/Ml Vial IVPUSH DAILY [facility] Docusate Sodium 100 mg 11/18/20 20:53 Docusate Sodium 100 Mg Capsule PO DAILY PRN Constipation Heparin Sodium (Porcine) 5,000 unit 11/18/20 21:00 Heparin Sodium,Porcine 5,000 Unit/Ml Vial SUBCUT Q12H MARY Ondansetron HCl 4 mg 11/18/20 20:53 Ondansetron Hcl 4 Mg/2 Ml Vial IVPUSH Q8H PRN Nausea and Vomiting Sodium Chloride 3 ml 11/19/20 00:00 0.9 % Sodium Chloride Flush 3 Ml Syringe [facility] Home Medications Medication Instructions Recorded Confirmed Last Taken Type clonazepam 1 mg tablet 1 mg PO BID PRN 03/31/20 11/18/20 11/18/20 History divalproex 500 mg tablet,delayed 500 mg PO BID 03/31/20 11/18/20 11/18/20 History release escitalopram oxalate 20 mg tablet 20 mg PO DAILY 03/31/20 11/18/20 11/18/20 History losartan 100 mg tablet 100 mg PO DAILY 09/29/20 11/18/20 11/18/20 History atorvastatin 10 mg tablet 10 mg PO DAILY 11/18/20 11/18/20 11/18/20 History Physical Exam Vital Signs and Narrative: Vital Signs: Last Vital Signs Temp 102.2 F H 11/18/20 20:08 Pulse 94 11/18/20 21:10 Resp 38 H 11/18/20 21:10 BP 143/90 H 11/18/20 21:10 Pulse Ox 93 11/18/20 21:10 Body Mass Index 26.0 Const: Other: Appears disheveled General: cooperative and no acute distress Orientation/consciousness: patient oriented x3 Eyes: General: appearance normal, both eyes and all related structures Pu pils: Equal, round and reactive pupils present Resp: Other: Bilateral crackles Effort & Inspection: normal respiratory effort Cardio: Rate: regular rate Rhythm: regular rhythm GI: Palpation (GI): Soft to palpation Auscultation: normal bowel sounds Skin: General skin exam: no rashes or lesions noted Neuro: General: patient oriented x3 Cranial nerves: Yes Equal, round and reactive pupils present Cognition (Neuro): normal cognition Extrem: General: Yes normal to inspection and Yes no pedal edema Results Labs CBC and Chem 7: 11/18/20 16:57 11/18/20 16:57 Labs: Laboratory Results - last 24 hr 11/18/20 11/18/20 11/18/20 16:57 16:57 16:57 MCV 84.8 MCH 27.0 MCHC 31.9 RDW 15.0 Plt Count 156 L D MPV 10.6 Immature Gran % (Auto) 0.5 H Neut % (Auto) 86.0 H Lymph % (Auto) 10.1 L [place] % (Auto) 3.2 Eos % (Auto) 0.0 Baso % (Auto) 0.2 Lymph # (Auto) 0.7 L [place] # (Auto) 0.2 Eos # (Auto) 0.0 Baso # (Auto) 0.0 Abs Immat Gran (auto) 0.03 Absolute Neuts (auto) 5.7 Absolute Nucleated RBC 0.000 Nucleated RBC % (auto) 0.0 PT INR D-Dimer Anion Gap 12 Estim Creat Clear Calc 57.0 Estimated GFR 43 Random Glucose 130 H Lactic Acid Calcium 9.2 Ferritin Total Bilirubin 0.5 Direct Bilirubin 0.2 AST 31 D ALT 21 Alkaline Phosphatase 61 D Lactate Dehydrogenase Troponin I High Sens 9.0 C-Reactive Protein B-Natriuretic Peptide 22 Total Protein 7.4 Albumin 3.9 Procalcitonin Urine Color Urine Appearance Urine pH Ur Specific [place] Urine Protein Urine Glucose (UA) Urine Ketones Urine Blood Urine Nitrite Ur Leukocyte Esterase Urine RBC Urine WBC Ur Squamous Epith Cells Urine Bacteria Coronavirus (PCR) Influenza Type A (PCR) Influenza Type B (PCR) RSV RNA Qual (PCR) 11/18/20 11/18/20 11/18/20 19:01 19:02 19:02 MCV MCH MCHC RDW Plt Count MPV Immature Gran % (Auto) Neut % (Auto) Lymph % (Auto) [place] % (Auto) Eos % (Auto) Baso % (Auto) Lymph # (Auto) [place] # (Auto) Eos # (Auto) Baso # (Auto) Abs Immat Gran (auto) Absolute Neuts (auto) Absolute Nucleated RBC Nucleated RBC % (auto) PT 12.5 INR 1.1 D-Dimer 1313 Anion Gap Estim Creat Clear Calc Estimated GFR Random Glucose Lactic Acid 2.6 H* Calcium Ferritin 1147 H Total Bilirubin Direct Bilirubin AST ALT Alkaline Phosphatase Lactate Dehydrogenase 622 H Troponin I High Sens C-Reactive Protein 13.08 H B-Natriuretic Peptide Total Protein Albumin Procalcitonin Urine Color Urine Appearance Urine pH Ur Specific [place] Urine Protein Urine Glucose (UA) Urine Ketones Urine Blood Urine Nitrite Ur Leukocyte Esterase Urine RBC Urine WBC Ur Squamous Epith Cells Urine Bacteria Coronavirus (PCR) Influenza Type A (PCR) Influenza Type B (PCR) RSV RNA Qual (PCR) 11/18/20 11/18/20 11/18/20 19:02 19:02 19:03 MCV MCH MCHC RDW Plt Count MPV Immature Gran % (Auto) Neut % (Auto) Lymph % (Auto) [place] % (Auto) Eos % (Auto) Baso % (Auto) Lymph # (Auto) [place] # (Auto) Eos # (Auto) Baso # (Auto) Abs Immat Gran (auto) Absolute Neuts (auto) Absolute Nucleated RBC Nucleated RBC % (auto) PT INR D-Dimer Anion Gap Estim Creat Clear Calc Estimated GFR Random Glucose Lactic Acid Calcium Ferritin Total Bilirubin Direct Bilirubin AST ALT Alkaline Phosphatase Lactate Dehydrogenase Troponin I High Sens 12.5 C-Reactive Protein B-Natriuretic Peptide Total Protein Albumin Procalcitonin 0.26 Urine Color YELLOW Urine Appearance CLEAR Urine pH 6.0 Ur Specific [place] 1.010 Urine Protein 2+ H Urine Glucose (UA) >=1000 H Urine Ketones NEG Urine Blood NEG Urine Nitrite NEG Ur Leukocyte Esterase NEG Urine RBC 0-2 Urine WBC 0-2 Ur Squamous Epith Cells TRACE Urine Bacteria 1+ Coronavirus (PCR) Influenza Type A (PCR) Influenza Type B (PCR) RSV RNA Qual (PCR) 11/18/20 20:04 MCV MCH MCHC RDW Plt Count MPV Immature Gran % (Auto) Neut % (Auto) Lymph % (Auto) [place] % (Auto) Eos % (Auto) Baso % (Auto) Lymph # (Auto) [place] # (Auto) Eos # (Auto) Baso # (Auto) Abs Immat Gran (auto) Absolute Neuts (auto) Absolute Nucleated RBC Nucleated RBC % (auto) PT INR D-Dimer Anion Gap Estim Creat Clear Calc Estimated GFR Random Glucose Lactic Acid Calcium Ferritin Total Bilirubin Direct Bilirubin AST ALT Alkaline Phosphatase Lactate Dehydrogenase Troponin I High Sens C-Reactive Protein B-Natriuretic Peptide Total Protein Albumin Procalcitonin Urine Color Urine Appearance Urine pH Ur Specific [place] Urine Protein Urine Glucose (UA) Urine Ketones Urine Blood Urine Nitrite Ur Leukocyte Esterase Urine RBC Urine WBC Ur Squamous Epith Cells Urine Bacteria Coronavirus (PCR) POSITIVE A Influenza Type A (PCR) NEGATIVE Influenza Type B (PCR) NEGATIVE RSV RNA Qual (PCR) NEGATIVE ECG Interpretation: EKG refused by me shows normal sinus rhythm Imaging Radiologist's Impressions: Impressions Chest X-Ray 11/18/20 16:00 IMPRESSION: Extensive patchy bilateral airspace opacities concerning for multifocal pneumonia. Alveolar pulmonary edema, pulmonary hemorrhage, or other etiologies could be considered in the appropriate clinical setting. Assessment and Plan (1) Pneumonia due to 2019-nCoV: Status: Acute (2) Acute on chronic respiratory failure with hypoxia: Status: Acute (3) Lactic acidosis: Status: Acute 50-year-old female unvaccinated presents to the hospital with complaints of shortness of breath found to have COVID-19 pneumonia # acute hypoxic respiratory failure - secondary to COVID-19 pneumonia - patient hypoxic in the 80s currently on 2 L of oxygen satting 92-93% - will start her on dexamethasone 6 mg daily - patient is not a candidate for remdesivir as her symptoms started on the 1st more than 11 days ago - monitor respiratory status # COVID-19 pneumonia - COVID-19 PCR positive - will start on dexamethasone daily - monitor respiratory status # hypertension - stable BP - continue home medications of losartan, and amlodipine # diabetes - will hold oral anti hyperglycemics - will place on low-dose sliding scale insulin - diabetic diet # anxiety and depression - continue home medications # hyperlipidemia - continue statin DVT prophylaxis: Heparin subQ Quality Stroke Does the patient have a stroke diagnosis?: No VTE Prior VTE?: No VTE Risk Level:: Medical - moderate - high VTE Device Contraindication: Treatment Not Indicated VTE Drug Contraindication: N/A - Med Ordered
[2020-11-18] MEDS: Heparin Sodium,Porcine 5,000 UNIT/ML VIAL 5000 UNIT SUBCUT (21:52)
[2020-11-18 22:21] LABS: Glucose, Whole Blood 117 mg/dL (60-115)
[2020-11-18 23:23] VITALS: BP 137/83; PULSE 84; RESP 32; O2SAT 93
--- NOTE | 2020-11-18 23:49 | PC.NURSE ---
pt able to stand and take a few steps to bedside commode. pt asked if she was hungry, only requested jello and ice water.
[2020-11-19] VITALS (12 sets, daily range): BP systolic 122–165; BP diastolic 56–88; PULSE 74–92; RESP 20–37; TEMP 36.2–37; O2SAT 72–96; BMI 26.0
[2020-11-19 07:43] LABS: Hematocrit 42.9 % (37-47); Hemoglobin 13.8 g/dl (12.0-16.0); Imm Gran Abs Auto 0.02 X10*3/uL (0.00-0.03); Imm Gran Pct Auto 0.4 % (0.0-0.4); Lymphocytes Absolute Auto 0.6 X10*3/uL (1.2-4.9); Lymphocytes Percent Auto 10.4 % (20-40); MANUAL DIFF FLAG SCAN; Mean Corpuscular HGB Conc 32.2 g/dl (31.0-35.0); Mean Corpuscular Hemoglobin 27.3 pg (27.0-33.0); Mean Platelet Volume 10.6 fL (9.4-12.3); Monocytes Absolute Auto 0.2 X10*3/uL (0.1-1.2); Monocytes Percent Auto 2.9 % (2-11); Neutrophils Absolute Auto 4.8 X10*3/uL (2.0-8.3); Neutrophils Percent Auto 86.3 % (45-73); Platelet Count 184 X10*3/uL (160-400); Red Blood Count 5.05 X10*6/uL (4.20-5.50); Red Cell Distribution Width 15.2 % (11.0-16.0); SCAN SMEAR FLAG 1; White Blood Count 5.6 X10*3/uL (4.8-10.8)
[2020-11-19 08:00] LABS: Anion Gap 15 (12-20); Blood Urea Nitrogen 17 mg/dL (9-16); Calcium 8.8 mg/dL (8.4-10.2); Carbon Dioxide 25 mmol/L (22-29); Chloride 104 mmol/L (96-108); Creatinine Clr Calc Pharmacy 60.3; Estimated Glomerular Filt Rate 46; Glucose Random 155 mg/dL (60-115); Potassium 4.5 mmol/L (3.3-5.1); Sodium 139 mmol/L (135-145)
[2020-11-19 08:21] LABS: SLIDE REVIEW VERIFIED
[2020-11-19 08:45] LABS: Glucose, Whole Blood 188 mg/dL (60-115)
[2020-11-19] MEDS: Cholecalciferol (Vitamin D3) 25 MCG TABLET 50 MCG PO (09:40)
[2020-11-19] MEDS: Escitalopram Oxalate 20 MG TABLET PO (09:41)
[2020-11-19] MEDS: atenoloL 50 MG TABLET PO (09:41)
[2020-11-19] MEDS: Aspirin Enteric Coated 81 MG TABLET.DR PO (09:42)
[2020-11-19] MEDS: amLODIPine Besylate 5 MG TABLET PO (09:42)
[2020-11-19] MEDS: Divalproex Sodium 500 MG TABLET.DR PO (09:42)
[2020-11-19] MEDS: Atorvastatin Calcium 10 MG TABLET PO (09:42)
[2020-11-19] MEDS: Losartan Potassium 50 MG TABLET 100 MG PO (09:43)
[2020-11-19] MEDS: dexAMETHasone sod phosphate 4 MG/ML VIAL 6 MG IVPUSH (09:44)
[2020-11-19] MEDS: Heparin Sodium,Porcine 5,000 UNIT/ML VIAL 5000 UNIT SUBCUT ×2 (09:44→21:07)
[2020-11-19 11:10] LABS: Glucose, Whole Blood 180 mg/dL (60-115)
[2020-11-19 13:33] LABS: Glucose, Whole Blood 165 mg/dL (60-115)
--- NOTE | 2020-11-19 13:59 | PC.NURSE ---
sr on monitor, declined lunch, insulin held, drinking water, aware of care plan and headed upstairs now, report given, denies sob
--- NOTE | 2020-11-19 14:01 | P.PNIM_ITS ---
Subjective Subjective Date of Service: 11/19/20 Interval History: the patient was seen and evaluated this morning Laying in bed, feels little better than yesterday but still short of breath and complaining of cough Denies any fever, chills or shortness of breath No reported other overnight events. Systemic review: No fever, reporting chills and weakness No chest pain, palpitation Shortness of breath, cough No abdominal pain, nausea or vomiting No urinary symptoms No any rash or wounds Physical Exam Vital Signs: Vital Signs: Last Vital Signs Temp 98.5 F 11/19/20 04:29 Pulse 92 11/19/20 10:00 Resp 22 H 11/19/20 10:00 BP 127/56 L 11/19/20 10:00 Pulse Ox 96 11/19/20 10:00 Body Mass Index 26.0 Const: Other: Constitutional : Alert, oriented, not in distress Neck : Normal inspection, Supple Cardiovascular : RRR, S1 S2, no lower extremity edema Respiratory : decreased bilateral air entry, basal bilateral crackles, wheezes or rhonchi Gastrointestinal: soft, lax, Normal bowel sounds, Non tender Skin : Warm, Dry Neurological : Alert & oriented x3, No focal deficit Objective Data Active Medications Acetaminophen (Acetaminophen 325 Mg Tablet) 650 mg PO Q6H PRN PRN Reason: Pain, Mild (Pain Scale 1-3) Amlodipine Besylate (Amlodipine Besylate 5 Mg Tablet) 5 mg PO DAILY [facility]LY [facility], [facility]; Protocol Last Admin: 11/19/20 09:42 Dose: 5 mg Documented by: SUMIT Aspirin (Aspirin Enteric Coated 81 Mg Tablet.) 81 mg PO DAILY [facility], [facility] Last Admin: 11/19/20 09:42 Dose: 81 mg Documented by: SUMIT Atenolol (Atenolol 50 Mg Tablet) 50 mg PO DAILY [facility], [facility]; Protocol Last Admin: 11/19/20 09:41 Dose: 50 mg Documented by: SUMIT Atorvastatin Calcium (Atorvastatin Calcium 10 Mg Tablet) 10 mg PO DAILY [facility], [facility] Last Admin: 11/19/20 09:42 Dose: 10 mg Documented by: SUMIT Clonazepam (Clonazepam 1 Mg Tablet) 1 mg PO BID PRN PRN Reason: Anxiety Dexamethasone Sodium Phosphate (Dexamethasone Sod Phosphate 4 Mg/Ml Vial) 6 mg IVPUSH DAILY [facility], [facility] Last Admin: 11/19/20 09:44 Dose: 6 mg Documented by: SUMIT Dextrose (Dextrose 50 % 25 Gm/50 Ml Vial) 25 gm IVPUSH Q15M PRN; Protocol PRN Reason: per Hypoglycemia Standing Ord. Divalproex Sodium (Divalproex Sodium 500 Mg Tablet.Dr) 500 mg PO BID [facility], [facility] Last Admin: 11/19/20 09:42 Dose: 500 mg Documented by: SUMIT Docusate Sodium (Docusate Sodium 100 Mg Capsule) 100 mg PO DAILY PRN PRN Reason: Constipation Escitalopram Oxalate (Escitalopram Oxalate 20 Mg Tablet) 20 mg PO DAILY [facility] Last Admin: 11/19/20 09:41 Dose: 20 mg Documented by: SUMIT Glucose (Glucose Gel 15 Gm Gel..Gram.) 15 gm PO Q15M PRN; Protocol PRN Reason: per Hypoglycemia Standing Ord. Heparin Sodium (Porcine) (Heparin Sodium,Porcine 5,000 Unit/Ml Vial) 5,000 unit SUBCUT Q12H [facility], [facility] Last Admin: 11/19/20 09:44 Dose: 5,000 unit Documented by: SUMIT Azithromycin 500 mg/ Sodium (Chloride) 250 mls @ 125 mls/hr IV Q24H [facility], [facility]1983 Ceftriaxone Sodium 1 gm/ (Sodium Chloride) 50 mls @ 100 mls/hr IV Q24H [facility]1983 Insulin Human Lispro (Insulin Lispro 100 Unit/Ml 3 Ml Vial) 0 unit SUBCUT QIDACHS FORMERLY [facility], [facility]; Protocol Last Admin: 11/19/20 09:44 Dose: Not Given Documented by: SUMIT Non-Admin Reason: See Note Losartan Potassium (Losartan Potassium 50 Mg Tablet) 100 mg PO DAILY [facility], [facility]; Protocol Last Admin: 11/19/20 09:43 Dose: 100 mg Documented by: SUMIT Ondansetron HCl (Ondansetron Hcl 4 Mg/2 Ml Vial) 4 mg IVPUSH Q8H PRN PRN Reason: Nausea and Vomiting Sodium Chloride (0.9 % Sodium Chloride Flush 3 Ml Syringe) 3 ml IVFLUSH QSHIFT [facility], [facility] Vitamin D (Cholecalciferol (Vitamin D3) 25 Mcg Tablet) 50 mcg PO DAILY [facility], [facility] Last Admin: 11/19/20 09:40 Dose: 50 mcg Documented by: SUMIT Labs CBC & Chem 7: 11/19/20 07:32 11/19/20 07:32 Labs: Laboratory Results - last 24 hr 11/18/20 11/18/20 11/18/20 16:57 16:57 16:57 MCV 84.8 MCH 27.0 MCHC 31.9 RDW 15.0 Plt Count 156 L D MPV 10.6 Immature Gran % (Auto) 0.5 H Neut % (Auto) 86.0 H Lymph % (Auto) 10.1 L Gulf % (Auto) 3.2 Eos % (Auto) 0.0 Baso % (Auto) 0.2 Lymph # (Auto) 0.7 L [place] # (Auto) 0.2 Eos # (Auto) 0.0 Baso # (Auto) 0.0 Abs Immat Gran (auto) 0.03 Absolute Neuts (auto) 5.7 Absolute Nucleated RBC 0.000 Nucleated RBC % (auto) 0.0 Smear Tech's Comments PT INR D-Dimer Anion Gap 12 Estim Creat Clear Calc 57.0 Estimated GFR 43 POC Glucose Random Glucose 130 H Lactic Acid Lactic Acid Fup @ 2Hr Calcium 9.2 Ferritin Total Bilirubin 0.5 Direct Bilirubin 0.2 AST 31 D ALT 21 Alkaline Phosphatase 61 D Lactate Dehydrogenase Troponin I High Sens 9.0 C-Reactive Protein B-Natriuretic Peptide 22 Total Protein 7.4 Albumin 3.9 Procalcitonin Urine Color Urine Appearance Urine pH Ur Specific [place] Urine Protein Urine Glucose (UA) Urine Ketones Urine Blood Urine Nitrite Ur Leukocyte Esterase Urine RBC Urine WBC Ur Squamous Epith Cells Urine Bacteria Coronavirus (PCR) Influenza Type A (PCR) Influenza Type B (PCR) RSV RNA Qual (PCR) 11/18/20 11/18/20 11/18/20 19:01 19:02 19:02 MCV MCH MCHC RDW Plt Count MPV Immature Gran % (Auto) Neut % (Auto) Lymph % (Auto) Gulf % (Auto) Eos % (Auto) Baso % (Auto) Lymph # (Auto) [place] # (Auto) Eos # (Auto) Baso # (Auto) Abs Immat Gran (auto) Absolute Neuts (auto) Absolute Nucleated RBC Nucleated RBC % (auto) Smear Tech's Comments PT 12.5 INR 1.1 D-Dimer 1313 Anion Gap Estim Creat Clear Calc Estimated GFR POC Glucose Random Glucose Lactic Acid 2.6 H* Lactic Acid Fup @ 2Hr Calcium Ferritin 1147 H Total Bilirubin Direct Bilirubin AST ALT Alkaline Phosphatase Lactate Dehydrogenase 622 H Troponin I High Sens C-Reactive Protein 13.08 H B-Natriuretic Peptide Total Protein Albumin Procalcitonin Urine Color Urine Appearance Urine pH Ur Specific [place] Urine Protein Urine Glucose (UA) Urine Ketones Urine Blood Urine Nitrite Ur Leukocyte Esterase Urine RBC Urine WBC Ur Squamous Epith Cells Urine Bacteria Coronavirus (PCR) Influenza Type A (PCR) Influenza Type B (PCR) RSV RNA Qual (PCR) 11/18/20 11/18/20 11/18/20 19:02 19:02 19:03 MCV MCH MCHC RDW Plt Count MPV Immature Gran % (Auto) Neut % (Auto) Lymph % (Auto) Gulf % (Auto) Eos % (Auto) Baso % (Auto) Lymph # (Auto) [place] # (Auto) Eos # (Auto) Baso # (Auto) Abs Immat Gran (auto) Absolute Neuts (auto) Absolute Nucleated RBC Nucleated RBC % (auto) Smear Tech's Comments PT INR D-Dimer Anion Gap Estim Creat Clear Calc Estimated GFR POC Glucose Random Glucose Lactic Acid Lactic Acid Fup @ 2Hr Calcium Ferritin Total Bilirubin Direct Bilirubin AST ALT Alkaline Phosphatase Lactate Dehydrogenase Troponin I High Sens 12.5 C-Reactive Protein B-Natriuretic Peptide Total Protein Albumin Procalcitonin 0.26 Urine Color YELLOW Urine Appearance CLEAR Urine pH 6.0 Ur Specific [place] 1.010 Urine Protein 2+ H Urine Glucose (UA) >=1000 H Urine Ketones NEG Urine Blood NEG Urine Nitrite NEG Ur Leukocyte Esterase NEG Urine RBC 0-2 Urine WBC 0-2 Ur Squamous Epith Cells TRACE Urine Bacteria 1+ Coronavirus (PCR) Influenza Type A (PCR) Influenza Type B (PCR) RSV RNA Qual (PCR) 11/18/20 11/18/20 11/18/20 20:04 21:38 22:15 MCV MCH MCHC RDW Plt Count MPV Immature Gran % (Auto) Neut % (Auto) Lymph % (Auto) Gulf % (Auto) Eos % (Auto) Baso % (Auto) Lymph # (Auto) [place] # (Auto) Eos # (Auto) Baso # (Auto) Abs Immat Gran (auto) Absolute Neuts (auto) Absolute Nucleated RBC Nucleated RBC % (auto) Smear Tech's Comments PT INR D-Dimer Anion Gap Estim Creat Clear Calc Estimated GFR POC Glucose 117 H Random Glucose Lactic Acid Lactic Acid Fup @ 2Hr 1.0 Calcium Ferritin Total Bilirubin Direct Bilirubin AST ALT Alkaline Phosphatase Lactate Dehydrogenase Troponin I High Sens C-Reactive Protein B-Natriuretic Peptide Total Protein Albumin Procalcitonin Urine Color Urine Appearance Urine pH Ur Specific [place] Urine Protein Urine Glucose (UA) Urine Ketones Urine Blood Urine Nitrite Ur Leukocyte Esterase Urine RBC Urine WBC Ur Squamous Epith Cells Urine Bacteria Coronavirus (PCR) POSITIVE A Influenza Type A (PCR) NEGATIVE Influenza Type B (PCR) NEGATIVE RSV RNA Qual (PCR) NEGATIVE 11/19/20 11/19/20 11/19/20 07:32 07:32 08:29 MCV 85.0 MCH 27.3 MCHC 32.2 RDW 15.2 Plt Count 184 MPV 10.6 Immature Gran % (Auto) 0.4 Neut % (Auto) 86.3 H Lymph % (Auto) 10.4 L [place] % (Auto) 2.9 Eos % (Auto) 0.0 Baso % (Auto) 0.0 Lymph # (Auto) 0.6 L [place] # (Auto) 0.2 Eos # (Auto) 0.0 Baso # (Auto) 0.0 Abs Immat Gran (auto) 0.02 Absolute Neuts (auto) 4.8 Absolute Nucleated RBC 0.000 Nucleated RBC % (auto) 0.0 Smear Tech's Comments VERIFIED PT INR D-Dimer Anion Gap 15 Estim Creat Clear Calc 60.3 Estimated GFR 46 POC Glucose 188 H Random Glucose 155 H Lactic Acid Lactic Acid Fup @ 2Hr Calcium 8.8 Ferritin Total Bilirubin Direct Bilirubin AST ALT Alkaline Phosphatase Lactate Dehydrogenase Troponin I High Sens C-Reactive Protein B-Natriuretic Peptide Total Protein Albumin Procalcitonin Urine Color Urine Appearance Urine pH Ur Specific [place] Urine Protein Urine Glucose (UA) Urine Ketones Urine Blood Urine Nitrite Ur Leukocyte Esterase Urine RBC Urine WBC Ur Squamous Epith Cells Urine Bacteria Coronavirus (PCR) Influenza Type A (PCR) Influenza Type B (PCR) RSV RNA Qual (PCR) 11/19/20 11/19/20 11:05 13:22 MCV MCH MCHC RDW Plt Count MPV Immature Gran % (Auto) Neut % (Auto) Lymph % (Auto) Gulf % (Auto) Eos % (Auto) Baso % (Auto) Lymph # (Auto) [place] # (Auto) Eos # (Auto) Baso # (Auto) Abs Immat Gran (auto) Absolute Neuts (auto) Absolute Nucleated RBC Nucleated RBC % (auto) Smear Tech's Comments PT INR D-Dimer Anion Gap Estim Creat Clear Calc Estimated GFR POC Glucose 180 H 165 H Random Glucose Lactic Acid Lactic Acid Fup @ 2Hr Calcium Ferritin Total Bilirubin Direct Bilirubin AST ALT Alkaline Phosphatase Lactate Dehydrogenase Troponin I High Sens C-Reactive Protein B-Natriuretic Peptide Total Protein Albumin Procalcitonin Urine Color Urine Appearance Urine pH Ur Specific [place] Urine Protein Urine Glucose (UA) Urine Ketones Urine Blood Urine Nitrite Ur Leukocyte Esterase Urine RBC Urine WBC Ur Squamous Epith Cells Urine Bacteria Coronavirus (PCR) Influenza Type A (PCR) Influenza Type B (PCR) RSV RNA Qual (PCR) Assessment and Plan (1) Lactic acidosis: Status: Acute (2) Pneumonia due to 2019-nCoV: Status: Acute (3) Hypoxia: Status: Acute Assessment and Plan: 50-year-old female unvaccinated presents to the hospital with complaints of shortness of breath found to have COVID-19 pneumonia # acute hypoxic respiratory failure # secondary to COVID-19 pneumonia Wean oxygen down as tolerated Continue dexamethasone 6 mg day to not a candidate for remdesivir as her symptoms started on the 1st more than 11 days ago monitor respiratory status Pending ID evaluation # pneumonia Risk of bacterial Pending blood cultures IV antibiotic of azithromycin and ceftriaxone # hypertension stable BP continue home medications of losartan, and amlodipine # diabetes hold oral anti hyperglycemics low-dose sliding scale insulin diabetic diet # anxiety and depression continue home medications # hyperlipidemia continue statin DVT prophylaxis Heparin subQ Quality Stroke Does the patient have a stroke diagnosis?: No VTE Prior VTE?: No VTE Risk Level:: Medical - moderate - high VTE Device Contraindication: Treatment Not Indicated VTE Drug Contraindication: N/A - Med Ordered
[2020-11-19 16:00] LABS: Glucose, Whole Blood 185 mg/dL (60-115)
[2020-11-19] MEDS: 0.9 % Sodium Chloride Flush 3 ML SYRINGE IVFLUSH ×2 (16:48→21:09)
[2020-11-19] MEDS: Insulin Lispro 100 UNIT/ML 3 ML VIAL SUBCUT ×2 (16:48→21:08)
[2020-11-19 19:50] LABS: Glucose, Whole Blood 156 mg/dL (60-115)
[2020-11-19] MEDS: cefTRIAXone sodium 1 GM in 0.9 % Sodium Chloride 50 ML IV (21:04)
[2020-11-19] MEDS: Azithromycin 500 MG in 0.9 % Sodium Chloride 250 ML 125 MG IV (21:04)
--- NOTE | 2020-11-19 22:29 | W.PM.IDCN ---
History of Present Illness Data of Consult Service Date: 11/19/20 Requesting physician: Lan Fonseca Primary Care Provider: Cally Rizvi MD HPI Reason for consult: COVID She presents to hospital with 10 days shortness of breath and cough She has oxygen saturation in 80s on room air She has had fatigue and chills She has no productive sputum Review of Systems Review of Systems: Yes all other systems are reviewed and are negative PMFSH Past Medical History Medical History Acute meniscal tear of right knee Anxiety and depression Bilateral carpal tunnel syndrome Diabetic nephropathy Diabetic nephropathy associated with type 2 diabetes mellitus Diabetic neuropathy associated with type 2 diabetes mellitus GERD (gastroesophageal reflux disease) Hypercholesterolemia Hypertension Insomnia Obesity (BMI 30-39.9) Osteoarthritis Psoriasis Right thyroid nodule Type 2 diabetes mellitus with hyperglycemia Family History Family History Father Medical history unknown Mother Diabetes Hypertension Maternal Grandmother Pancreatic cancer Maternal Aunt Breast cancer Sister Breast cancer Other Substance use disorder Surgical History Surgical History History of section History of cholecystectomy History of D&C History of tubal ligation Social History Social History Household Members: Family Housing: Apartment Do you presently have visiting nurse or other home services: No Alcohol intake: never Patient Tobacco Use Status: Never used Tobacco e-Cigarette/Vaping Use: Never Used Second Hand Smoke Exposure: Yes service: No Current occupational status: disabled Meds Allergies Allergy/AdvReac Type Severity Reaction Status Date / Time egg Allergy Unknown throat Verified 11/10/20 08:40 swells up lisinopril Allergy Unknown Unknown Verified 11/10/20 08:40 metformin [METFORMIN] Allergy Unknown TACHYCARDIA Verified 11/10/20 08:40 AND DIARRHEA milk Allergy Unknown throat Verified 11/10/20 08:40 swells up Active Medications: Current Medications Generic Name Dose Route Start Last Admin Trade Name Freq PRN Reason Stop Dose Admin Acetaminophen 650 mg 11/18/20 20:53 Acetaminophen 325 Mg Tablet PO Q6H PRN Pain, Mild (Pain Scale 1-3) Albuterol Sulfate 4 puff 11/19/20 18:32 Albuterol Sulfate 90 Mcg 8 Gm Inhaler INHALE Q3H PRN Shortness of Breath/Wheezing Amlodipine Besylate 5 mg 11/19/20 09:00 11/19/20 09:42 Amlodipine Besylate 5 Mg Tablet PO 5 mg DAILY MARY Administration Protocol Aspirin 81 mg 11/19/20 09:00 11/19/20 09:42 Aspirin Enteric Coated 81 Mg Tablet. PO 81 mg DAILY MARY Administration Atenolol 50 mg 11/19/20 09:00 11/19/20 09:41 Atenolol 50 Mg Tablet PO 50 mg DAILY MARY Administration Protocol Atorvastatin Calcium 10 mg 11/19/20 09:00 11/19/20 09:42 Atorvastatin Calcium 10 Mg Tablet PO 10 mg DAILY MARY Administration Clonazepam 1 mg 11/19/20 06:27 Clonazepam 1 Mg Tablet PO BID PRN Anxiety Dexamethasone Sodium Phosphate 6 mg 11/19/20 09:00 11/19/20 09:44 Dexamethasone Sod Phosphate 4 Mg/Ml Vial IVPUSH 6 mg DAILY MARY Administration Dextrose 25 gm 11/19/20 06:26 Dextrose 50 % 25 Gm/50 Ml Vial IVPUSH Q15M PRN per Hypoglycemia Standing Ord. Protocol Divalproex Sodium 500 mg 11/19/20 09:00 11/19/20 21:08 Divalproex Sodium 500 Mg Tablet. PO 500 mg BID MARY Administration Docusate Sodium 100 mg 11/18/20 20:53 Docusate Sodium 100 Mg Capsule PO DAILY PRN Constipation Escitalopram Oxalate 20 mg 11/19/20 09:00 11/19/20 09:41 Escitalopram Oxalate 20 Mg Tablet PO 20 mg DAILY MARY Administration Glucose 15 gm 11/19/20 06:26 Glucose Gel 15 Gm Gel..Gram. PO Q15M PRN per Hypoglycemia Standing Ord. Protocol Heparin Sodium (Porcine) 5,000 unit 11/18/20 21:00 11/19/20 21:07 Heparin Sodium,Porcine 5,000 Unit/Ml Vial SUBCUT 5,000 unit Q12H MARY Administration Remdesivir 100 mg/ Sodium 230 mls @ 115 mls/hr 11/20/20 20:00 Chloride IV 11/23/20 21:59 Q24H [facility], [facility]–1983 Insulin Human Lispro 0 unit 11/19/20 07:30 11/19/20 21:08 Insulin Lispro 100 Unit/Ml 3 Ml Vial SUBCUT 2 unit QIDACHS [facility]1983 Administration Protocol Losartan Potassium 100 mg 11/19/20 09:00 11/19/20 09:43 Losartan Potassium 50 Mg Tablet PO 100 mg DAILY [facility] Administration Protocol Ondansetron HCl 4 mg 11/18/20 20:53 Ondansetron Hcl 4 Mg/2 Ml Vial IVPUSH Q8H PRN Nausea and Vomiting Sodium Chloride 3 ml 11/19/20 00:00 11/19/20 21:09 0.9 % Sodium Chloride Flush 3 Ml Syringe IVFLUSH 3 ml QSHIFT [facility]1983 Administration Vitamin D 50 mcg 11/19/20 09:00 11/19/20 09:40 Cholecalciferol (Vitamin D3) 25 Mcg Tablet PO 50 mcg DAILY [facility] Administration Home Medications Medication Instructions Recorded Confirmed Last Taken Type clonazepam 1 mg tablet 1 mg PO BID PRN 03/31/20 11/18/20 11/18/20 History divalproex 500 mg tablet,delayed 500 mg PO BID 03/31/20 11/18/20 11/18/20 History release escitalopram oxalate 20 mg tablet 20 mg PO DAILY 03/31/20 11/18/20 11/18/20 History losartan 100 mg tablet 100 mg PO DAILY 09/29/20 11/18/20 11/18/20 History atorvastatin 10 mg tablet 10 mg PO DAILY 11/18/20 11/18/20 11/18/20 History Physical Exam Vital Signs: Vital Signs: Last Vital Signs Temp 97.2 F 11/19/20 19:03 Pulse 84 11/19/20 19:03 Resp 20 11/19/20 19:03 BP 165/88 H 11/19/20 19:03 Pulse Ox 91 L 11/19/20 19:03 Body Mass Index 26.0 Const: General: cooperative HENMT: Head: Yes normal to inspection Eyes: General: appearance normal, both eyes and all related structures Resp: Effort & Inspection: able to speak in complete sentences and Actively coughing Cardio: Rate: regular rate Rhythm: regular rhythm GI: Palpation (GI): nontender Extrem: General: Yes normal to inspection Results Labs CBC & Chem 7: 11/27/20 10:59 12/03/20 07:53 Labs: Short CBC 11/18/20 11/19/20 Range/Units 19:02 07:32 WBC 5.6 (4.8-10.8) X10*3/uL Hgb 13.8 (12.0-16.0) g/dl Hct 42.9 (37-47) % Plt Count 184 (160-400) X10*3/uL Ferritin 1147 H (10-250) ng/mL BMP 11/19/20 07:32 Sodium 139 Potassium 4.5 Chloride 104 Carbon Dioxide 25 BUN 17 H Creatinine 1.22 Calcium 8.8 Microbiology Microbiology Results: Microbiology 11/18/20 19:02 Blood - Venous Blood Culture - Preliminary No growth after 24 hours. 11/18/20 19:01 Blood - Venous Blood Culture - Preliminary No growth after 24 hours. Assessment and Plan (1) COVID-19 virus infection: Status: Acute She is unvaccinated COVID and tells me she didnt know much about vaccine. She has been ill 10 days so is on border of success with Remdesivir She has very elevated ferritin and rather low procalcitonin paired with diffuse airspace disease and normal CBC. She has no lobar pneumonia or productive sputum Would stop IV antibiotics as no evidence seen at this point to indicate atypical or typical pneumonia Would give 5 days Remdesivir and Dexamethasone Would give oxygen as needed
[2020-11-19] MEDS: Remdesivir 200 MG in 0.9 % Sodium Chloride 210 ML 105 MG IV (23:15)
[2020-11-20] VITALS (10 sets, daily range): BP systolic 134–172; BP diastolic 83–95; PULSE 81–91; RESP 18–27; TEMP 36.6–37; O2SAT 79–93
[2020-11-20 06:49] LABS: Hematocrit 43.5 % (37-47); Hemoglobin 13.9 g/dl (12.0-16.0); Mean Corpuscular Hemoglobin 26.9 pg (27.0-33.0); Mean Corpuscular Volume 84.3 fL (80-98); Mean Platelet Volume 10.5 fL (9.4-12.3); Platelet Count 227 X10*3/uL (160-400); Red Blood Count 5.16 X10*6/uL (4.20-5.50); White Blood Count 13.4 X10*3/uL (4.8-10.8)
[2020-11-20 06:57] LABS: Anion Gap 16 (12-20); Blood Urea Nitrogen 24 mg/dL (9-16); Calcium 8.6 mg/dL (8.4-10.2); Carbon Dioxide 23 mmol/L (22-29); Chloride 106 mmol/L (96-108); Creatinine Clr Calc Pharmacy 57.5; Estimated Glomerular Filt Rate 44; Glucose Random 161 mg/dL (60-115); Potassium 4.4 mmol/L (3.3-5.1); Sodium 141 mmol/L (135-145)
--- NOTE | 2020-11-20 07:14 | PC.NURSE ---
pt desat 85% on 12L [place], replaced sat probe, still desat. notified , pt at bedside dangling, increase to 15L n/c. r.t. notified and will adjust as necessary.
[2020-11-20 07:46] LABS: Glucose, Whole Blood 147 mg/dL (60-115)
[2020-11-20] MEDS: Heparin Sodium,Porcine 5,000 UNIT/ML VIAL 5000 UNIT SUBCUT ×2 (08:10→20:58)
[2020-11-20] MEDS: Aspirin Enteric Coated 81 MG TABLET.DR PO (08:10)
[2020-11-20] MEDS: 0.9 % Sodium Chloride Flush 3 ML SYRINGE IVFLUSH ×3 (08:10→20:59)
[2020-11-20] MEDS: Cholecalciferol (Vitamin D3) 25 MCG TABLET 50 MCG PO (08:10)
[2020-11-20] MEDS: Losartan Potassium 50 MG TABLET 100 MG PO (08:11)
[2020-11-20] MEDS: Atorvastatin Calcium 10 MG TABLET PO (08:11)
[2020-11-20] MEDS: amLODIPine Besylate 5 MG TABLET PO (08:11)
[2020-11-20] MEDS: dexAMETHasone sod phosphate 4 MG/ML VIAL 6 MG IVPUSH (08:12)
[2020-11-20] MEDS: atenoloL 50 MG TABLET PO (08:43)
--- NOTE | 2020-11-20 10:12 | MHC.CM.PN ---
Spoke with patient via phone (COVID +): lives with son at home, no prior services, no equipment, drives, fully independent. Plan is return home with son via son when D/C ready.
[2020-11-20 11:24] LABS: Glucose, Whole Blood 171 mg/dL (60-115)
[2020-11-20] MEDS: Insulin Lispro 100 UNIT/ML 3 ML VIAL SUBCUT ×3 (11:34→20:58)
--- NOTE | 2020-11-20 12:41 | P.PNIM_ITS ---
Subjective Subjective Date of Service: 11/20/20 Interval History: the patient was seen and evaluated this morning Increased oxygen requirement overnight Still reporting shortness of breath Denies any fever, chills or shortness of breath No reported other overnight events. Systemic review: No fever, reporting chills and weakness No chest pain, palpitation Shortness of breath, cough No abdominal pain, nausea or vomiting No urinary symptoms No any rash or wounds Physical Exam Vital Signs: Vital Signs: Last Vital Signs Temp 98.5 F 11/20/20 12:00 Pulse 81 11/20/20 12:00 Resp 27 H 11/20/20 12:00 BP 134/87 11/20/20 12:00 Pulse Ox 91 L 11/20/20 12:00 Body Mass Index 26.0 Const: Other: Constitutional : Alert, oriented, not in distress Neck : Normal inspection, Supple Cardiovascular : RRR, S1 S2, no lower extremity edema Respiratory : Chest wall moving bilaterally, mildly tachypneic, oxygen supplement by nasal cannula Gastrointestinal: soft, lax, Normal bowel sounds, Non tender Skin : Warm, Dry Neurological : Alert & oriented x3, No focal deficit Objective Data Active Medications Acetaminophen (Acetaminophen 325 Mg Tablet) 650 mg PO Q6H PRN PRN Reason: Pain, Mild (Pain Scale 1-3) Albuterol Sulfate (Albuterol Sulfate 90 Mcg 8 Gm Inhaler) 4 puff INHALE Q3H PRN PRN Reason: Shortness of Breath/Wheezing Albuterol/Ipratropium (Albuterol/Iprat 2.5/0.5mg 3 Ml Ampul.Neb) 3 ml INHALE RQ4H PRN PRN Reason: Shortness of Breath/Wheezing Amlodipine Besylate (Amlodipine Besylate 5 Mg Tablet) 5 mg PO DAILY [facility]; Protocol Last Admin: 11/20/20 08:11 Dose: 5 mg Documented by: ZAY Aspirin (Aspirin Enteric Coated 81 Mg Tablet.) 81 mg PO DAILY [facility] Last Admin: 11/20/20 08:10 Dose: 81 mg Documented by: ZAY Atenolol (Atenolol 50 Mg Tablet) 50 mg PO DAILY [facility]; Protocol Last Admin: 11/20/20 08:43 Dose: 50 mg Documented by: ZAY Atorvastatin Calcium (Atorvastatin Calcium 10 Mg Tablet) 10 mg PO DAILY [facility] Last Admin: 11/20/20 08:11 Dose: 10 mg Documented by: ZAY Clonazepam (Clonazepam 1 Mg Tablet) 1 mg PO BID PRN PRN Reason: Anxiety Dexamethasone Sodium Phosphate (Dexamethasone Sod Phosphate 4 Mg/Ml Vial) 6 mg IVPUSH DAILY [facility] Last Admin: 11/20/20 08:12 Dose: 6 mg Documented by: ZAY Dextrose (Dextrose 50 % 25 Gm/50 Ml Vial) 25 gm IVPUSH Q15M PRN; Protocol PRN Reason: per Hypoglycemia Standing Ord. Divalproex Sodium (Divalproex Sodium 500 Mg Tablet.Dr) 500 mg PO BID [facility] Last Admin: 11/20/20 08:14 Dose: Not Given Documented by: ZAY Non-Admin Reason: Patient Refused Docusate Sodium (Docusate Sodium 100 Mg Capsule) 100 mg PO DAILY PRN PRN Reason: Constipation Escitalopram Oxalate (Escitalopram Oxalate 20 Mg Tablet) 20 mg PO DAILY [facility] Last Admin: 11/20/20 08:22 Dose: Not Given Documented by: ZAY Non-Admin Reason: Patient Refused Glucose (Glucose Gel 15 Gm Gel..Gram.) 15 gm PO Q15M PRN; Protocol PRN Reason: per Hypoglycemia Standing Ord. Heparin Sodium (Porcine) (Heparin Sodium,Porcine 5,000 Unit/Ml Vial) 5,000 unit SUBCUT Q12H [facility] Last Admin: 11/20/20 08:10 Dose: 5,000 unit Documented by: ZAY Remdesivir 100 mg/ Sodium (Chloride) 230 mls @ 115 mls/hr IV Q24H [facility] Stop: 11/23/20 21:59 Insulin Human Lispro (Insulin Lispro 100 Unit/Ml 3 Ml Vial) 0 unit SUBCUT QIDACHS [facility]; Protocol Last Admin: 11/20/20 11:34 Dose: 2 unit Documented by: ZAY Losartan Potassium (Losartan Potassium 50 Mg Tablet) 100 mg PO DAILY [facility]; Protocol Last Admin: 11/20/20 08:11 Dose: 100 mg Documented by: ZAY Ondansetron HCl (Ondansetron Hcl 4 Mg/2 Ml Vial) 4 mg IVPUSH Q8H PRN PRN Reason: Nausea and Vomiting Sodium Chloride (0.9 % Sodium Chloride Flush 3 Ml Syringe) 3 ml IVFLUSH QSHIFT [facility] Last Admin: 11/20/20 08:10 Dose: 3 ml Documented by: ZAY Vitamin D (Cholecalciferol (Vitamin D3) 25 Mcg Tablet) 50 mcg PO DAILY [facility] Last Admin: 11/20/20 08:10 Dose: 50 mcg Documented by: ZAY Labs CBC & Chem 7: 11/20/20 06:14 11/20/20 06:14 Labs: Laboratory Results - last 24 hr 11/19/20 11/19/20 11/19/20 13:22 15:56 19:44 MCV MCH MCHC RDW Plt Count MPV Absolute Nucleated RBC Nucleated RBC % (auto) Anion Gap Estim Creat Clear Calc Estimated GFR POC Glucose 165 H 185 H 156 H Random Glucose Calcium 11/20/20 11/20/20 11/20/20 06:14 06:14 07:26 MCV 84.3 MCH 26.9 L MCHC 32.0 RDW 15.0 Plt Count 227 MPV 10.5 Absolute Nucleated RBC 0.000 Nucleated RBC % (auto) 0.0 Anion Gap 16 Estim Creat Clear Calc 57.5 Estimated GFR 44 POC Glucose 147 H Random Glucose 161 H Calcium 8.6 11/20/20 11:10 MCV MCH MCHC RDW Plt Count MPV Absolute Nucleated RBC Nucleated RBC % (auto) Anion Gap Estim Creat Clear Calc Estimated GFR POC Glucose 171 H Random Glucose Calcium Microbiology Microbiology Results: Microbiology 11/18/20 19:02 Blood Culture - Preliminary Blood - Venous No growth after 24 hours. 11/18/20 19:01 Blood Culture - Preliminary Blood - Venous No growth after 24 hours. Assessment and Plan (1) Lactic acidosis: Status: Acute (2) Pneumonia due to 2019-nCoV: Status: Acute (3) Hypoxia: Status: Acute Assessment and Plan: 50-year-old female unvaccinated presents to the hospital with complaints of shortness of breath found to have COVID-19 pneumonia # acute hypoxic respiratory failure # secondary to COVID-19 pneumonia Wean oxygen down as tolerated Continue dexamethasone 6 mg day 3 Started on remdesivir day 2 monitor respiratory status Appreciated ID evaluation, discontinue IV antibiotics # hypertension stable BP continue home medications of losartan, and amlodipine # diabetes hold oral anti hyperglycemics low-dose sliding scale insulin diabetic diet # anxiety and depression continue home medications # hyperlipidemia continue statin DVT prophylaxis Heparin subQ Quality Stroke Does the patient have a stroke diagnosis?: No VTE Prior VTE?: No VTE Risk Level:: Medical - moderate - high VTE Device Contraindication: Treatment Not Indicated VTE Drug Contraindication: N/A - Med Ordered
[2020-11-20 15:59] LABS: Glucose, Whole Blood 230 mg/dL (60-115)
[2020-11-20 19:56] LABS: Glucose, Whole Blood 175 mg/dL (60-115)
[2020-11-20] MEDS: Remdesivir 100 MG in 0.9 % Sodium Chloride 230 ML 115 MG IV (20:58)
[2020-11-21 04:00] VITALS: BP 144/80; PULSE 79; RESP 18; TEMP 36.5; O2SAT 90
[2020-11-21 06:47] LABS: Hematocrit 43.6 % (37-47); Hemoglobin 13.8 g/dl (12.0-16.0); Mean Corpuscular HGB Conc 31.7 g/dl (31.0-35.0); Mean Corpuscular Hemoglobin 26.7 pg (27.0-33.0); Mean Corpuscular Volume 84.3 fL (80-98); Mean Platelet Volume 10.9 fL (9.4-12.3); Platelet Count 276 X10*3/uL (160-400); Red Blood Count 5.17 X10*6/uL (4.20-5.50); Red Cell Distribution Width 15.1 % (11.0-16.0); White Blood Count 10.8 X10*3/uL (4.8-10.8)
[2020-11-21 07:22] LABS: Anion Gap 15 (12-20); Blood Urea Nitrogen 27 mg/dL (9-16); Calcium 8.7 mg/dL (8.4-10.2); Carbon Dioxide 24 mmol/L (22-29); Chloride 107 mmol/L (96-108); Creatinine Clr Calc Pharmacy 63.3; Estimated Glomerular Filt Rate 49; Glucose Random 166 mg/dL (60-115); Potassium 4.6 mmol/L (3.3-5.1); Sodium 141 mmol/L (135-145)
[2020-11-21 07:27] VITALS: BP 148/102; PULSE 81; RESP 19; O2SAT 94
[2020-11-21 07:47] LABS: Glucose, Whole Blood 158 mg/dL (60-115)
[2020-11-21] MEDS: Divalproex Sodium 500 MG TABLET.DR PO (08:33)
[2020-11-21] MEDS: Cholecalciferol (Vitamin D3) 25 MCG TABLET 50 MCG PO (08:33)
[2020-11-21] MEDS: Insulin Lispro 100 UNIT/ML 3 ML VIAL SUBCUT ×4 (08:33→20:07)
[2020-11-21 08:34] VITALS: BP 148/102; PULSE 81
[2020-11-21] MEDS: amLODIPine Besylate 5 MG TABLET PO (08:34)
[2020-11-21] MEDS: Losartan Potassium 50 MG TABLET 100 MG PO (08:34)
[2020-11-21] MEDS: Aspirin Enteric Coated 81 MG TABLET.DR PO (08:34)
[2020-11-21] MEDS: dexAMETHasone sod phosphate 4 MG/ML VIAL 6 MG IVPUSH (08:34)
[2020-11-21] MEDS: Escitalopram Oxalate 20 MG TABLET PO (08:34)
[2020-11-21] MEDS: Atorvastatin Calcium 10 MG TABLET PO (08:34)
[2020-11-21] MEDS: Heparin Sodium,Porcine 5,000 UNIT/ML VIAL 5000 UNIT SUBCUT ×2 (08:34→20:07)
[2020-11-21] MEDS: atenoloL 50 MG TABLET PO (08:34)
[2020-11-21] MEDS: 0.9 % Sodium Chloride Flush 3 ML SYRINGE IVFLUSH ×3 (08:35→20:08)
[2020-11-21 10:51] VITALS: BP 134/89; PULSE 76; RESP 19; O2SAT 93
[2020-11-21 11:38] LABS: Glucose, Whole Blood 176 mg/dL (60-115)
[2020-11-21 15:14] VITALS: BP 138/80; PULSE 66; RESP 20; TEMP 36.3; O2SAT 93
--- NOTE | 2020-11-21 16:07 | P.PNIM_ITS ---
Subjective Subjective Date of Service: 11/21/20 Interval History: The patient was seen and evaluated this morning Increased oxygen requirement overnight to NRB Still reporting shortness of breath and coughing Denies any fever, chills or shortness of breath No reported other overnight events. Systemic review: No fever, reporting chills and weakness No chest pain, palpitation Shortness of breath, cough No abdominal pain, nausea or vomiting No urinary symptoms No any rash or wounds Physical Exam Vital Signs: Vital Signs: Last Vital Signs Temp 97.3 F 11/21/20 15:14 Pulse 66 11/21/20 15:14 Resp 20 11/21/20 15:14 BP 138/80 11/21/20 15:14 Pulse Ox 93 11/21/20 15:14 Body Mass Index 26.0 Const: Other: Constitutional : Alert, oriented, not in distress Neck : Normal inspection, Supple Cardiovascular : RRR, S1 S2, no lower extremity edema Respiratory : Chest wall moving bilaterally, mildly tachypneic, oxygen supplement by nasal cannula Gastrointestinal: soft, lax, Normal bowel sounds, Non tender Skin : Warm, Dry Neurological : Alert & oriented x3, No focal deficit Objective Data Active Medications Acetaminophen (Acetaminophen 325 Mg Tablet) 650 mg PO Q6H PRN PRN Reason: Pain, Mild (Pain Scale 1-3) Albuterol Sulfate (Albuterol Sulfate 90 Mcg 8 Gm Inhaler) 4 puff INHALE Q3H PRN PRN Reason: Shortness of Breath/Wheezing Albuterol/Ipratropium (Albuterol/Iprat 2.5/0.5mg 3 Ml Ampul.Neb) 3 ml INHALE RQ4H PRN PRN Reason: Shortness of Breath/Wheezing Amlodipine Besylate (Amlodipine Besylate 5 Mg Tablet) 5 mg PO DAILY [facility]; Protocol Last Admin: 11/21/20 08:34 Dose: 5 mg Documented by: DARRELL Aspirin (Aspirin Enteric Coated 81 Mg Tablet.) 81 mg PO DAILY [facility] Last Admin: 11/21/20 08:34 Dose: 81 mg Documented by: DARRELL Atenolol (Atenolol 50 Mg Tablet) 50 mg PO DAILY [facility]; Protocol Last Admin: 11/21/20 08:34 Dose: 50 mg Documented by: DARRELL Atorvastatin Calcium (Atorvastatin Calcium 10 Mg Tablet) 10 mg PO DAILY [facility] Last Admin: 11/21/20 08:34 Dose: 10 mg Documented by: DARRELL Clonazepam (Clonazepam 1 Mg Tablet) 1 mg PO BID PRN PRN Reason: Anxiety Dexamethasone Sodium Phosphate (Dexamethasone Sod Phosphate 4 Mg/Ml Vial) 6 mg IVPUSH DAILY [facility] Last Admin: 11/21/20 08:34 Dose: 6 mg Documented by: DARRELL Dextrose (Dextrose 50 % 25 Gm/50 Ml Vial) 25 gm IVPUSH Q15M PRN; Protocol PRN Reason: per Hypoglycemia Standing Ord. Divalproex Sodium (Divalproex Sodium 500 Mg Tablet.Dr) 500 mg PO BID [facility] Last Admin: 11/21/20 08:33 Dose: 500 mg Documented by: DARRELL Docusate Sodium (Docusate Sodium 100 Mg Capsule) 100 mg PO DAILY PRN PRN Reason: Constipation Escitalopram Oxalate (Escitalopram Oxalate 20 Mg Tablet) 20 mg PO DAILY [facility] Last Admin: 11/21/20 08:34 Dose: 20 mg Documented by: DARRELL Glucose (Glucose Gel 15 Gm Gel..Gram.) 15 gm PO Q15M PRN; Protocol PRN Reason: per Hypoglycemia Standing Ord. Heparin Sodium (Porcine) (Heparin Sodium,Porcine 5,000 Unit/Ml Vial) 5,000 unit SUBCUT Q12H [facility] Last Admin: 11/21/20 08:34 Dose: 5,000 unit Documented by: DARRELL Remdesivir 100 mg/ Sodium (Chloride) 230 mls @ 115 mls/hr IV Q24H [facility] Stop: 11/23/20 21:59 Last Infusion: 11/20/20 23:00 Dose: 0 mls/hr Documented by: AARON Insulin Human Lispro (Insulin Lispro 100 Unit/Ml 3 Ml Vial) 0 unit SUBCUT QIDACHS [facility]; Protocol Last Admin: 11/21/20 12:21 Dose: 2 unit Documented by: DARRELL Losartan Potassium (Losartan Potassium 50 Mg Tablet) 100 mg PO DAILY [facility]; Protocol Last Admin: 11/21/20 08:34 Dose: 100 mg Documented by: DARRELL Ondansetron HCl (Ondansetron Hcl 4 Mg/2 Ml Vial) 4 mg IVPUSH Q8H PRN PRN Reason: Nausea and Vomiting Sodium Chloride (0.9 % Sodium Chloride Flush 3 Ml Syringe) 3 ml IVFLUSH QSHIFT [facility] Last Admin: 11/21/20 08:35 Dose: 3 ml Documented by: DARRELL Vitamin D (Cholecalciferol (Vitamin D3) 25 Mcg Tablet) 50 mcg PO DAILY [facility] Last Admin: 11/21/20 08:33 Dose: 50 mcg Documented by: DARRELL Labs CBC & Chem 7: 11/21/20 06:09 11/21/20 06:09 Labs: Laboratory Results - last 24 hr 11/20/20 11/21/20 11/21/20 19:50 06:09 06:09 MCV 84.3 MCH 26.7 L MCHC 31.7 RDW 15.1 Plt Count 276 MPV 10.9 Absolute Nucleated RBC 0.000 Nucleated RBC % (auto) 0.0 Anion Gap 15 Estim Creat Clear Calc 63.3 Estimated GFR 49 POC Glucose 175 H Random Glucose 166 H Calcium 8.7 11/21/20 11/21/20 07:26 11:33 MCV MCH MCHC RDW Plt Count MPV Absolute Nucleated RBC Nucleated RBC % (auto) Anion Gap Estim Creat Clear Calc Estimated GFR POC Glucose 158 H 176 H Random Glucose Calcium Microbiology Microbiology Results: Microbiology 11/18/20 19:01 Blood Culture - Preliminary Blood - Venous No growth after 48 hours. 11/18/20 19:02 Blood Culture - Preliminary Blood - Venous No growth after 48 hours. Assessment and Plan (1) Acute on chronic respiratory failure with hypoxia: Status: Acute (2) Pneumonia due to 2019-nCoV: Status: Acute Assessment and Plan: 50-year-old female unvaccinated presents to the hospital with complaints of shortness of breath found to have COVID-19 pneumonia # acute hypoxic respiratory failure # secondary to COVID-19 pneumonia Increased oxygen requirement 15 L on non-rebreather, to wean down as tolerated Continue dexamethasone 6 mg day 4 Started on remdesivir day 3 monitor respiratory status Appreciated ID evaluation Repeat blood work and monitor inflammatory markers # hypertension stable BP continue home medications of losartan, and amlodipine # diabetes hold oral anti hyperglycemics low-dose sliding scale insulin diabetic diet # anxiety and depression continue home medications # hyperlipidemia continue statin DVT prophylaxis Heparin subQ Quality Stroke Does the patient have a stroke diagnosis?: No VTE Prior VTE?: No VTE Risk Level:: Medical - moderate - high VTE Device Contraindication: Treatment Not Indicated VTE Drug Contraindication: N/A - Med Ordered
[2020-11-21 16:12] LABS: Glucose, Whole Blood 213 mg/dL (60-115)
[2020-11-21 19:06] VITALS: BP 175/88; PULSE 78; RESP 20; TEMP 36.6; O2SAT 95
[2020-11-21] MEDS: Remdesivir 100 MG in 0.9 % Sodium Chloride 230 ML 115 MG IV (19:20)
[2020-11-21 19:57] LABS: Glucose, Whole Blood 200 mg/dL (60-115)
[2020-11-22] VITALS (8 sets, daily range): BP systolic 126–166; BP diastolic 73–92; PULSE 67–75; RESP 18–69; TEMP 36–36.8; O2SAT 92–95
[2020-11-22 07:08] LABS: Hematocrit 48.2 % (37-47); Hemoglobin 15.3 g/dl (12.0-16.0); Mean Corpuscular HGB Conc 31.7 g/dl (31.0-35.0); Platelet Count 306 X10*3/uL (160-400); Red Blood Count 5.67 X10*6/uL (4.20-5.50); Red Cell Distribution Width 15.4 % (11.0-16.0); White Blood Count 8.9 X10*3/uL (4.8-10.8)
[2020-11-22 07:23] LABS: Glucose, Whole Blood 191 mg/dL (60-115)
[2020-11-22 07:56] LABS: Anion Gap 15 (12-20); Blood Urea Nitrogen 29 mg/dL (9-16); Calcium 8.4 mg/dL (8.4-10.2); Carbon Dioxide 25 mmol/L (22-29); Chloride 108 mmol/L (96-108); Creatinine Clr Calc Pharmacy 63.9; Estimated Glomerular Filt Rate 50; Glucose Random 183 mg/dL (60-115); Potassium 4.9 mmol/L (3.3-5.1); Sodium 143 mmol/L (135-145)
[2020-11-22 08:06] LABS: C Reactive Protein 2.63 mg/dL (< or = 0.50); Lactate Dehydrogenase 867 U/L (122-220)
[2020-11-22] MEDS: Insulin Lispro 100 UNIT/ML 3 ML VIAL SUBCUT ×4 (09:07→21:10)
[2020-11-22] MEDS: Heparin Sodium,Porcine 5,000 UNIT/ML VIAL 5000 UNIT SUBCUT ×2 (09:07→21:10)
[2020-11-22] MEDS: dexAMETHasone sod phosphate 4 MG/ML VIAL 6 MG IVPUSH (09:07)
[2020-11-22] MEDS: Cholecalciferol (Vitamin D3) 25 MCG TABLET 50 MCG PO (09:08)
[2020-11-22] MEDS: Losartan Potassium 50 MG TABLET 100 MG PO (09:08)
[2020-11-22] MEDS: Atorvastatin Calcium 10 MG TABLET PO (09:08)
[2020-11-22] MEDS: amLODIPine Besylate 5 MG TABLET PO (09:09)
[2020-11-22] MEDS: atenoloL 50 MG TABLET PO (09:09)
[2020-11-22] MEDS: Aspirin Enteric Coated 81 MG TABLET.DR PO (09:09)
[2020-11-22] MEDS: 0.9 % Sodium Chloride Flush 3 ML SYRINGE IVFLUSH ×3 (09:10→21:11)
[2020-11-22 10:47] LABS: Glucose, Whole Blood 241 mg/dL (60-115)
[2020-11-22 16:14] LABS: Glucose, Whole Blood 297 mg/dL (60-115)
--- NOTE | 2020-11-22 17:20 | HO.PM.IMPN ---
Subjective Subjective Date of Service: 11/22/20 Interval History: The patient was seen and evaluated this morning Oxygen requirement overnight to NRB improvement in shortness of breath and coughing Denies any fever, chills or shortness of breath No reported other overnight events. Systemic review: No fever, reporting chills and weakness No chest pain, palpitation Shortness of breath, cough No abdominal pain, nausea or vomiting No urinary symptoms No any rash or wounds Physical Exam Vital Signs: Vital Signs: Last Vital Signs Temp 96.8 F 11/22/20 15:20 Pulse 70 11/22/20 15:20 Resp 20 11/22/20 15:20 BP 126/92 H 11/22/20 15:20 Pulse Ox 93 11/22/20 15:20 Body Mass Index 26.0 Const: Other: Constitutional : Alert, oriented, not in distress Neck : Normal inspection, Supple Cardiovascular : RRR, S1 S2, no lower extremity edema Respiratory : Chest wall moving bilaterally, mildly tachypneic, oxygen supplement by nasal cannula Gastrointestinal: soft, lax, Normal bowel sounds, Non tender Skin : Warm, Dry Neurological : Alert & oriented x3, No focal deficit Objective Data Active Medications Acetaminophen (Acetaminophen 325 Mg Tablet) 650 mg PO Q6H PRN PRN Reason: Pain, Mild (Pain Scale 1-3) Albuterol Sulfate (Albuterol Sulfate 90 Mcg 8 Gm Inhaler) 4 puff INHALE Q3H PRN PRN Reason: Shortness of Breath/Wheezing Albuterol/Ipratropium (Albuterol/Iprat 2.5/0.5mg 3 Ml Ampul.Neb) 3 ml INHALE RQ4H PRN PRN Reason: Shortness of Breath/Wheezing Amlodipine Besylate (Amlodipine Besylate 5 Mg Tablet) 5 mg PO DAILY [facility]; Protocol Last Admin: 11/22/20 09:09 Dose: 5 mg Documented by: MARTA Aspirin (Aspirin Enteric Coated 81 Mg Tablet.) 81 mg PO DAILY [facility] Last Admin: 11/22/20 09:09 Dose: 81 mg Documented by: MARTA Atenolol (Atenolol 50 Mg Tablet) 50 mg PO DAILY [facility]; Protocol Last Admin: 11/22/20 09:09 Dose: 50 mg Documented by: MARTA Atorvastatin Calcium (Atorvastatin Calcium 10 Mg Tablet) 10 mg PO DAILY [facility] Last Admin: 11/22/20 09:08 Dose: 10 mg Documented by: MARTA Clonazepam (Clonazepam 1 Mg Tablet) 1 mg PO BID PRN PRN Reason: Anxiety Dexamethasone Sodium Phosphate (Dexamethasone Sod Phosphate 4 Mg/Ml Vial) 6 mg IVPUSH DAILY [facility] Last Admin: 11/22/20 09:07 Dose: 6 mg Documented by: MARTA Dextrose (Dextrose 50 % 25 Gm/50 Ml Vial) 25 gm IVPUSH Q15M PRN; Protocol PRN Reason: per Hypoglycemia Standing Ord. Divalproex Sodium (Divalproex Sodium 500 Mg Tablet.Dr) 500 mg PO BID [facility] Last Admin: 11/22/20 10:17 Dose: Not Given Documented by: MARTA Non-Admin Reason: Patient Refused Docusate Sodium (Docusate Sodium 100 Mg Capsule) 100 mg PO DAILY PRN PRN Reason: Constipation Escitalopram Oxalate (Escitalopram Oxalate 20 Mg Tablet) 20 mg PO DAILY [facility] Last Admin: 11/22/20 10:18 Dose: Not Given Documented by: MARTA Non-Admin Reason: Patient Refused Glucose (Glucose Gel 15 Gm Gel..Gram.) 15 gm PO Q15M PRN; Protocol PRN Reason: per Hypoglycemia Standing Ord. Heparin Sodium (Porcine) (Heparin Sodium,Porcine 5,000 Unit/Ml Vial) 5,000 unit SUBCUT Q12H [facility] Last Admin: 11/22/20 09:07 Dose: 5,000 unit Documented by: MARTA Remdesivir 100 mg/ Sodium (Chloride) 230 mls @ 115 mls/hr IV Q24H [facility] Stop: 11/23/20 21:59 Last Infusion: 11/21/20 21:39 Dose: 0 mls/hr Documented by: KRISHNA Insulin Human Lispro (Insulin Lispro 100 Unit/Ml 3 Ml Vial) 0 unit SUBCUT QIDACHS [facility]; Protocol Last Admin: 11/22/20 17:19 Dose: 6 unit Documented by: MARTA Losartan Potassium (Losartan Potassium 50 Mg Tablet) 100 mg PO DAILY [facility]; Protocol Last Admin: 11/22/20 09:08 Dose: 100 mg Documented by: MARTA Ondansetron HCl (Ondansetron Hcl 4 Mg/2 Ml Vial) 4 mg IVPUSH Q8H PRN PRN Reason: Nausea and Vomiting Sodium Chloride (0.9 % Sodium Chloride Flush 3 Ml Syringe) 3 ml IVFLUSH QSHIFT [facility] Last Admin: 11/22/20 11:47 Dose: 3 ml Documented by: MARTA Vitamin D (Cholecalciferol (Vitamin D3) 25 Mcg Tablet) 50 mcg PO DAILY [facility] Last Admin: 11/22/20 09:08 Dose: 50 mcg Documented by: MARTA Labs CBC & Chem 7: 11/22/20 05:52 11/22/20 05:52 Labs: Laboratory Results - last 24 hr 11/21/20 11/22/20 11/22/20 19:53 05:52 05:52 MCV 85.0 MCH 27.0 MCHC 31.7 RDW 15.4 Plt Count 306 MPV 11.0 Absolute Nucleated RBC 0.000 Nucleated RBC % (auto) 0.0 Anion Gap 15 Estim Creat Clear Calc 63.9 Estimated GFR 50 POC Glucose 200 H Random Glucose 183 H Calcium 8.4 Lactate Dehydrogenase C-Reactive Protein 11/22/20 11/22/20 11/22/20 05:52 07:14 10:42 MCV MCH MCHC RDW Plt Count MPV Absolute Nucleated RBC Nucleated RBC % (auto) Anion Gap Estim Creat Clear Calc Estimated GFR POC Glucose 191 H 241 H Random Glucose Calcium Lactate Dehydrogenase 867 H C-Reactive Protein 2.63 H 11/22/20 16:08 MCV MCH MCHC RDW Plt Count MPV Absolute Nucleated RBC Nucleated RBC % (auto) Anion Gap Estim Creat Clear Calc Estimated GFR POC Glucose 297 H Random Glucose Calcium Lactate Dehydrogenase C-Reactive Protein Assessment and Plan (1) Acute on chronic respiratory failure with hypoxia: Status: Acute (2) COVID-19 virus infection: Status: Acute Assessment and Plan: 50-year-old female unvaccinated presents to the hospital with complaints of shortness of breath found to have COVID-19 pneumonia # acute hypoxic respiratory failure # secondary to COVID-19 pneumonia Increased oxygen requirement 15 L on non-rebreather, to wean down as tolerated Continue dexamethasone 6 mg day 5 Started on remdesivir day 4 Appreciated ID evaluation Repeat blood work and monitor inflammatory markers monitor respiratory status # hypertension stable BP continue home medications of losartan, and amlodipine # diabetes hold oral anti hyperglycemics low-dose sliding scale insulin diabetic diet # anxiety and depression continue home medications # hyperlipidemia continue statin DVT prophylaxis Heparin subQ Quality Stroke Does the patient have a stroke diagnosis?: No VTE Prior VTE?: No VTE Risk Level:: Medical - moderate - high VTE Device Contraindication: Treatment Not Indicated VTE Drug Contraindication: N/A - Med Ordered
[2020-11-22 19:52] LABS: Glucose, Whole Blood 233 mg/dL (60-115)
[2020-11-22] MEDS: Remdesivir 100 MG in 0.9 % Sodium Chloride 230 ML 115 MG IV (21:10)
[2020-11-23] VITALS (11 sets, daily range): BP systolic 139–164; BP diastolic 73–96; PULSE 61–75; RESP 18–93; TEMP 36.1–36.8; O2SAT 89–96
[2020-11-23 07:58] LABS: Glucose, Whole Blood 219 mg/dL (60-115)
[2020-11-23] MEDS: dexAMETHasone sod phosphate 4 MG/ML VIAL 6 MG IVPUSH (09:11)
[2020-11-23] MEDS: Heparin Sodium,Porcine 5,000 UNIT/ML VIAL 5000 UNIT SUBCUT ×2 (09:11→21:27)
[2020-11-23] MEDS: Losartan Potassium 50 MG TABLET 100 MG PO (09:12)
[2020-11-23] MEDS: Cholecalciferol (Vitamin D3) 25 MCG TABLET 50 MCG PO (09:12)
[2020-11-23] MEDS: Atorvastatin Calcium 10 MG TABLET PO (09:12)
[2020-11-23] MEDS: Aspirin Enteric Coated 81 MG TABLET.DR PO (09:12)
[2020-11-23] MEDS: 0.9 % Sodium Chloride Flush 3 ML SYRINGE IVFLUSH ×3 (09:12→21:28)
[2020-11-23] MEDS: amLODIPine Besylate 5 MG TABLET PO (09:12)
[2020-11-23] MEDS: atenoloL 50 MG TABLET PO (09:12)
[2020-11-23] MEDS: Insulin Lispro 100 UNIT/ML 3 ML VIAL SUBCUT ×4 (09:13→21:31)
--- NOTE | 2020-11-23 09:59 | MHC.CM.PN ---
Patient has not yet been medically cleared for dc (IV Decadron, IV Remdesivir, 15L O2). Home is the goal for dc and CM will continue to monitor for possible need to adjust the dc plan.
[2020-11-23 11:44] LABS: Glucose, Whole Blood 183 mg/dL (60-115)
--- NOTE | 2020-11-23 13:07 | P.PNIM_ITS ---
Subjective Subjective Date of Service: 11/23/20 Interval History: The patient was seen and evaluated this morning Oxygen level dropping below 90 regardless of being on NRB Reporting mild improvement in shortness of breath and coughing Denies any fever, chills or shortness of breath No reported other overnight events. Systemic review: No fever, reporting chills and weakness No chest pain, palpitation Shortness of breath, cough No abdominal pain, nausea or vomiting No urinary symptoms No any rash or wounds Physical Exam Vital Signs: Vital Signs: Last Vital Signs Temp 98.2 F 11/23/20 12:00 Pulse 75 11/23/20 12:00 Resp 20 11/23/20 12:00 BP 161/73 H 11/23/20 12:00 Pulse Ox 89 L 11/23/20 12:00 Body Mass Index 26.0 Const: Other: Constitutional : Alert, oriented, not in distress Neck : Normal inspection, Supple Cardiovascular : RRR, S1 S2, no lower extremity edema Respiratory : Chest wall moving bilaterally, mildly tachypneic, oxygen supplement by nasal cannula Gastrointestinal: soft, lax, Normal bowel sounds, Non tender Skin : Warm, Dry Neurological : Alert & oriented x3, No focal deficit Objective Data Active Medications Acetaminophen (Acetaminophen 325 Mg Tablet) 650 mg PO Q6H PRN PRN Reason: Pain, Mild (Pain Scale 1-3) Albuterol Sulfate (Albuterol Sulfate 90 Mcg 8 Gm Inhaler) 4 puff INHALE Q3H PRN PRN Reason: Shortness of Breath/Wheezing Albuterol/Ipratropium (Albuterol/Iprat 2.5/0.5mg 3 Ml Ampul.Neb) 3 ml INHALE RQ4H PRN PRN Reason: Shortness of Breath/Wheezing Amlodipine Besylate (Amlodipine Besylate 5 Mg Tablet) 5 mg PO DAILY [facility]; Protocol Last Admin: 11/23/20 09:12 Dose: 5 mg Documented by: JENNY Aspirin (Aspirin Enteric Coated 81 Mg Tablet.) 81 mg PO DAILY [facility] Last Admin: 11/23/20 09:12 Dose: 81 mg Documented by: JENNY Atenolol (Atenolol 50 Mg Tablet) 50 mg PO DAILY [facility]; Protocol Last Admin: 11/23/20 09:12 Dose: 50 mg Documented by: JENNY Atorvastatin Calcium (Atorvastatin Calcium 10 Mg Tablet) 10 mg PO DAILY [facility] Last Admin: 11/23/20 09:12 Dose: 10 mg Documented by: JENNY Clonazepam (Clonazepam 1 Mg Tablet) 1 mg PO BID PRN PRN Reason: Anxiety Dexamethasone Sodium Phosphate (Dexamethasone Sod Phosphate 4 Mg/Ml Vial) 6 mg IVPUSH DAILY [facility] Last Admin: 11/23/20 09:11 Dose: 6 mg Documented by: JENNY Dextrose (Dextrose 50 % 25 Gm/50 Ml Vial) 25 gm IVPUSH Q15M PRN; Protocol PRN Reason: per Hypoglycemia Standing Ord. Divalproex Sodium (Divalproex Sodium 500 Mg Tablet.Dr) 500 mg PO BID [facility] Last Admin: 11/23/20 09:20 Dose: Not Given Documented by: JENNY Non-Admin Reason: Patient Refused Docusate Sodium (Docusate Sodium 100 Mg Capsule) 100 mg PO DAILY PRN PRN Reason: Constipation Escitalopram Oxalate (Escitalopram Oxalate 20 Mg Tablet) 20 mg PO DAILY [facility] Last Admin: 11/23/20 09:20 Dose: Not Given Documented by: JENNY Non-Admin Reason: Patient Refused Glucose (Glucose Gel 15 Gm Gel..Gram.) 15 gm PO Q15M PRN; Protocol PRN Reason: per Hypoglycemia Standing Ord. Heparin Sodium (Porcine) (Heparin Sodium,Porcine 5,000 Unit/Ml Vial) 5,000 unit SUBCUT Q12H [facility] Last Admin: 11/23/20 09:11 Dose: 5,000 unit Documented by: JENNY Remdesivir 100 mg/ Sodium (Chloride) 230 mls @ 115 mls/hr IV Q24H [facility] Stop: 11/23/20 21:59 Last Infusion: 11/22/20 23:26 Dose: 0 mls/hr Documented by: SILKE Insulin Human Lispro (Insulin Lispro 100 Unit/Ml 3 Ml Vial) 0 unit SUBCUT QIDACHS [facility]; Protocol Last Admin: 11/23/20 12:42 Dose: 2 unit Documented by: JENNY Losartan Potassium (Losartan Potassium 50 Mg Tablet) 100 mg PO DAILY [facility]; Protocol Last Admin: 11/23/20 09:12 Dose: 100 mg Documented by: JENNY Ondansetron HCl (Ondansetron Hcl 4 Mg/2 Ml Vial) 4 mg IVPUSH Q8H PRN PRN Reason: Nausea and Vomiting Sodium Chloride (0.9 % Sodium Chloride Flush 3 Ml Syringe) 3 ml IVFLUSH QSHIFT [facility] Last Admin: 11/23/20 09:12 Dose: 3 ml Documented by: JENNY Vitamin D (Cholecalciferol (Vitamin D3) 25 Mcg Tablet) 50 mcg PO DAILY [facility] Last Admin: 11/23/20 09:12 Dose: 50 mcg Documented by: JENNY Labs CBC & Chem 7: 11/22/20 05:52 11/22/20 05:52 Labs: Laboratory Results - last 24 hr 11/22/20 11/22/20 11/23/20 16:08 19:47 07:44 POC Glucose 297 H 233 H 219 H 11/23/20 11:34 POC Glucose 183 H Assessment and Plan (1) Acute on chronic respiratory failure with hypoxia: Status: Acute (2) Pneumonia due to 2019-nCoV: Status: Acute Assessment and Plan: 50-year-old female unvaccinated presents to the hospital with complaints of shortness of breath found to have COVID-19 pneumonia # acute hypoxic respiratory failure # secondary to COVID-19 pneumonia Oxygen level dropping on 15 L on non-rebreather, to consider high-flow oxygen Continue dexamethasone 6 mg day 6 remdesivir day 5 Appreciated ID evaluation Repeat blood work and monitor inflammatory markers monitor respiratory status # hypertension stable BP continue home medications of losartan, and amlodipine # diabetes hold oral anti hyperglycemics low-dose sliding scale insulin diabetic diet # anxiety and depression continue home medications # hyperlipidemia continue statin DVT prophylaxis Heparin subQ Quality Stroke Does the patient have a stroke diagnosis?: No VTE Prior VTE?: No VTE Risk Level:: Medical - moderate - high VTE Device Contraindication: Treatment Not Indicated VTE Drug Contraindication: N/A - Med Ordered
[2020-11-23 16:28] LABS: Glucose, Whole Blood 234 mg/dL (60-115)
[2020-11-23 19:54] LABS: Glucose, Whole Blood 254 mg/dL (60-115)
[2020-11-23] MEDS: Remdesivir 100 MG in 0.9 % Sodium Chloride 230 ML 115 MG IV (21:27)
[2020-11-24] VITALS (12 sets, daily range): BP systolic 123–168; BP diastolic 72–86; PULSE 56–68; RESP 18–24; TEMP 36.4–37.1; O2SAT 91–97
[2020-11-24] MEDS: Insulin Lispro 100 UNIT/ML 3 ML VIAL SUBCUT ×4 (07:55→21:52)
[2020-11-24 08:11] LABS: Glucose, Whole Blood 192 mg/dL (60-115)
[2020-11-24] MEDS: Losartan Potassium 50 MG TABLET 100 MG PO (08:52)
[2020-11-24] MEDS: Aspirin Enteric Coated 81 MG TABLET.DR PO (08:52)
[2020-11-24] MEDS: 0.9 % Sodium Chloride Flush 3 ML SYRINGE IVFLUSH ×3 (08:52→21:52)
[2020-11-24] MEDS: atenoloL 50 MG TABLET PO (08:52)
[2020-11-24] MEDS: Heparin Sodium,Porcine 5,000 UNIT/ML VIAL 5000 UNIT SUBCUT ×2 (08:52→21:51)
[2020-11-24] MEDS: Cholecalciferol (Vitamin D3) 25 MCG TABLET 50 MCG PO (08:53)
[2020-11-24] MEDS: amLODIPine Besylate 5 MG TABLET PO (08:53)
[2020-11-24] MEDS: Atorvastatin Calcium 10 MG TABLET PO (08:53)
[2020-11-24] MEDS: dexAMETHasone sod phosphate 4 MG/ML VIAL 6 MG IVPUSH (08:53)
--- NOTE | 2020-11-24 09:14 | P.CDIC_ITS ---
CDI Concurrent Query Documentation Clarification: PHYSICIAN'S DOCUMENTATION REQUEST Date of Query: 11/24/20913 Patient Name: Nina Coats I Admit Date: 11/18/20 Dear Doctor, A review of the medical record indicates additional documentation may be needed. Please review below and update the documentation accordingly. Viral sepsis due to Covid-19 pneumonia with acute hypoxic respiratory failure (POA, treat, not treating) Covid-19 pneumonia with acute hypoxic respiratory failure Other or undetermined Risk Factors/Clinical Indicators/Treatments Temp 102.2 RR 38 LA 2.6 pulse ox 85 Covid pneumonia Acute hypoxic respiratory failure fatigue, chills, shortness of breath placed on 2 liters oxygen. Dexamethasone, Albuterol, Oxygen, IV fluids ID: discontinue IV antibiotics, no evidence of atypical or typical pneumonia. Recognized standard criteria for this condition and other infectious definitions includes: Sepsis Systemic manifestations of infection, with 2 or more SIRS criteria which include: * Fever > 100.4?F or hypothermia < 96.8?F * Leukocytosis ? WBC > 12,000 or leukopenia, WBC < 4,000, or > 10% bands * Tachycardia- > 90 beats/minute * Tachypnea- RR > 20 breaths/minute or PaCO2 < 32mmHg Source: [employer] Manual 2013 Documentation should include the known or suspected organism, and the underlying infection, such as UTI or pneumonia Based on the above information and the recognized standard for sepsis, could you please clarify in the Progress Notes if this diagnoses is still accurate and reflective of the patient's condition to ensure quality of the medical record. * Sepsis is/was present or not treating, resolved (please include this additional support in the medical record * Other (please specify) * Unable to determine Use of terms such as suspected, likely, concern for, or probable (associated with a specific diagnosis that is being evaluated, monitored, or treated as if it exists) are acceptable and can be coded in the inpatient setting, when documented at the time of discharge. Thank you, Radha Abbasi [facility], CDIS Extension: [phone] Please use your independent medical judgment in providing your response. THIS QUERY IS PART OF THE PERMANENT MEDICAL RECORD Provider Response: Other Other Diagnosis: Viral sepsis uclear, patient does not have sepsis at this time
[2020-11-24 10:51] LABS: Glucose, Whole Blood 254 mg/dL (60-115)
--- NOTE | 2020-11-24 11:33 | HO.PM.IMPN ---
Subjective Subjective Date of Service: 11/24/20 Interval History: Seen in f/u for covid relate acute hypxic respiratory failure Review of Systems sob no fever Physical Exam Vital Signs: Vital Signs: Last Vital Signs Temp 97.6 F 11/24/20 08:00 Pulse 67 11/24/20 08:53 Resp 18 11/24/20 11:28 BP 168/86 H 11/24/20 08:53 Pulse Ox 93 11/24/20 08:00 Body Mass Index 26.0 Objective Data Active Medications Acetaminophen (Acetaminophen 325 Mg Tablet) 650 mg PO Q6H PRN PRN Reason: Pain, Mild (Pain Scale 1-3) Albuterol Sulfate (Albuterol Sulfate 90 Mcg 8 Gm Inhaler) 4 puff INHALE Q3H PRN PRN Reason: Shortness of Breath/Wheezing Albuterol/Ipratropium (Albuterol/Iprat 2.5/0.5mg 3 Ml Ampul.Neb) 3 ml INHALE RQ4H PRN PRN Reason: Shortness of Breath/Wheezing Amlodipine Besylate (Amlodipine Besylate 5 Mg Tablet) 5 mg PO DAILY [facility]; Protocol Last Admin: 11/24/20 08:53 Dose: 5 mg Documented by: ZAY Aspirin (Aspirin Enteric Coated 81 Mg Tablet.) 81 mg PO DAILY [facility] Last Admin: 11/24/20 08:52 Dose: 81 mg Documented by: ZAY Atenolol (Atenolol 50 Mg Tablet) 50 mg PO DAILY [facility]; Protocol Last Admin: 11/24/20 08:52 Dose: 50 mg Documented by: ZAY Atorvastatin Calcium (Atorvastatin Calcium 10 Mg Tablet) 10 mg PO DAILY [facility] Last Admin: 11/24/20 08:53 Dose: 10 mg Documented by: ZAY Dexamethasone Sodium Phosphate (Dexamethasone Sod Phosphate 4 Mg/Ml Vial) 6 mg IVPUSH DAILY [facility] Last Admin: 11/24/20 08:53 Dose: 6 mg Documented by: ZAY Dextrose (Dextrose 50 % 25 Gm/50 Ml Vial) 25 gm IVPUSH Q15M PRN; Protocol PRN Reason: per Hypoglycemia Standing Ord. Divalproex Sodium (Divalproex Sodium 500 Mg Tablet.) 500 mg PO BID [facility] Last Admin: 11/24/20 08:56 Dose: Not Given Documented by: ZAY Non-Admin Reason: Patient Refused Docusate Sodium (Docusate Sodium 100 Mg Capsule) 100 mg PO DAILY PRN PRN Reason: Constipation Escitalopram Oxalate (Escitalopram Oxalate 20 Mg Tablet) 20 mg PO DAILY [facility] Last Admin: 11/24/20 08:56 Dose: Not Given Documented by: ZAY Non-Admin Reason: Patient Refused Glucose (Glucose Gel 15 Gm Gel..Gram.) 15 gm PO Q15M PRN; Protocol PRN Reason: per Hypoglycemia Standing Ord. Heparin Sodium (Porcine) (Heparin Sodium,Porcine 5,000 Unit/Ml Vial) 5,000 unit SUBCUT Q12H [facility] Last Admin: 11/24/20 08:52 Dose: 5,000 unit Documented by: ZAY Insulin Human Lispro (Insulin Lispro 100 Unit/Ml 3 Ml Vial) 0 unit SUBCUT QIDACHS [facility]; Protocol Last Admin: 11/24/20 07:55 Dose: 2 unit Documented by: ZAY Losartan Potassium (Losartan Potassium 50 Mg Tablet) 100 mg PO DAILY [facility]; Protocol Last Admin: 11/24/20 08:52 Dose: 100 mg Documented by: ZAY Ondansetron HCl (Ondansetron Hcl 4 Mg/2 Ml Vial) 4 mg IVPUSH Q8H PRN PRN Reason: Nausea and Vomiting Sodium Chloride (0.9 % Sodium Chloride Flush 3 Ml Syringe) 3 ml IVFLUSH QSHIFT [facility] Last Admin: 11/24/20 08:52 Dose: 3 ml Documented by: ZAY Vitamin D (Cholecalciferol (Vitamin D3) 25 Mcg Tablet) 50 mcg PO DAILY [facility] Last Admin: 11/24/20 08:53 Dose: 50 mcg Documented by: ZAY Labs CBC & Chem 7: 11/22/20 05:52 11/22/20 05:52 Labs: Laboratory Results - last 24 hr 11/23/20 11/23/20 11/23/20 11:34 16:21 19:49 POC Glucose 183 H 234 H 254 H 11/24/20 11/24/20 08:05 10:46 POC Glucose 192 H 254 H Microbiology Microbiology Results: Microbiology 11/18/20 19:02 Blood Culture - Final Blood - Venous No growth after 5 days. 11/18/20 19:01 Blood Culture - Final Blood - Venous No growth after 5 days. Assessment and Plan (1) Acute on chronic respiratory failure with hypoxia: Status: Acute (2) Pneumonia due to 2019-nCoV: Status: Acute Assessment and Plan: 50-year-old female unvaccinated presents to the hospital with complaints of shortness of breath found to have COVID-19 pneumonia with viral sepsis # acute hypoxic respiratory failure d/t covid 19 # secondary to COVID-19 pneumonia -Persistent hypoxia, transition to high flow if not able to maintain at current O2 Continue dexamethasone 6 mg day 7 remdesivir, has completed 5 days Periodic inflamatory marker monitoring # hypertension continue home medications of losartan, and amlodipine # diabetes BS high, restart Actos diabetic diet # anxiety and depression continue home medications # hyperlipidemia continue statin (lipitor) DVT prophylaxis Heparin subQ Quality Stroke Does the patient have a stroke diagnosis?: No VTE Prior VTE?: No VTE Risk Level:: Medical - moderate - high VTE Device Contraindication: Treatment Not Indicated VTE Drug Contraindication: N/A - Med Ordered
[2020-11-24 16:10] LABS: Glucose, Whole Blood 255 mg/dL (60-115)
[2020-11-24 20:26] LABS: Glucose, Whole Blood 211 mg/dL (60-115)
[2020-11-25] VITALS (15 sets, daily range): BP systolic 128–152; BP diastolic 76–95; PULSE 58–69; RESP 20–28; TEMP 36.1–36.9; O2SAT 91–898
[2020-11-25] MEDS: Insulin Lispro 100 UNIT/ML 3 ML VIAL SUBCUT ×4 (07:32→21:03)
[2020-11-25 08:01] LABS: Glucose, Whole Blood 167 mg/dL (60-115)
[2020-11-25] MEDS: Heparin Sodium,Porcine 5,000 UNIT/ML VIAL 5000 UNIT SUBCUT ×2 (08:32→21:03)
[2020-11-25] MEDS: amLODIPine Besylate 5 MG TABLET PO (09:49)
[2020-11-25] MEDS: 0.9 % Sodium Chloride Flush 3 ML SYRINGE IVFLUSH ×2 (09:49→17:17)
[2020-11-25] MEDS: Losartan Potassium 50 MG TABLET 100 MG PO (09:49)
[2020-11-25] MEDS: Cholecalciferol (Vitamin D3) 25 MCG TABLET 50 MCG PO (09:49)
[2020-11-25] MEDS: atenoloL 50 MG TABLET PO (09:49)
[2020-11-25] MEDS: Atorvastatin Calcium 10 MG TABLET PO (09:50)
[2020-11-25] MEDS: Aspirin Enteric Coated 81 MG TABLET.DR PO (09:50)
[2020-11-25] MEDS: dexAMETHasone sod phosphate 4 MG/ML VIAL 6 MG IVPUSH (09:50)
--- NOTE | 2020-11-25 11:33 | HO.PM.IMPN ---
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 Seen in f/u for covid relate acute hypxic respiratory failure, she says she feels better, yet remains hypOxic Review of Systems sob no fever Physical Exam Vital Signs: Vital Signs: Last Vital Signs Temp 98.2 F 11/25/20 08:00 Pulse 59 11/25/20 08:00 Resp 22 H 11/25/20 08:00 BP 140/82 H 11/25/20 09:49 Pulse Ox 95 11/25/20 08:00 Body Mass Index 26.0 General: AO X 3, no acute distress Resp: CTA bilateral, no wheezes and no rales CVS: S1,S2,RRR GI: +BS, NT, no distention Skin: No rash Neuro: motor grossly intact Psych: appropriate affect Objective Data Active Medications Acetaminophen (Acetaminophen 325 Mg Tablet) 650 mg PO Q6H PRN PRN Reason: Pain, Mild (Pain Scale 1-3) Albuterol Sulfate (Albuterol Sulfate 90 Mcg 8 Gm Inhaler) 4 puff INHALE Q3H PRN PRN Reason: Shortness of Breath/Wheezing Albuterol/Ipratropium (Albuterol/Iprat 2.5/0.5mg 3 Ml Ampul.Neb) 3 ml INHALE RQ4H PRN PRN Reason: Shortness of Breath/Wheezing Amlodipine Besylate (Amlodipine Besylate 5 Mg Tablet) 5 mg PO DAILY [facility]; Protocol Last Admin: 11/25/20 09:49 Dose: 5 mg Documented by: ZAY Aspirin (Aspirin Enteric Coated 81 Mg Tablet.) 81 mg PO DAILY [facility] Last Admin: 11/25/20 09:50 Dose: 81 mg Documented by: ZAY Atenolol (Atenolol 50 Mg Tablet) 50 mg PO DAILY [facility]; Protocol Last Admin: 11/25/20 09:49 Dose: 50 mg Documented by: ZAY Atorvastatin Calcium (Atorvastatin Calcium 10 Mg Tablet) 10 mg PO DAILY [facility] Last Admin: 11/25/20 09:50 Dose: 10 mg Documented by: ZAY Dexamethasone Sodium Phosphate (Dexamethasone Sod Phosphate 4 Mg/Ml Vial) 6 mg IVPUSH DAILY [facility] Last Admin: 11/25/20 09:50 Dose: 6 mg Documented by: ZAY Dextrose (Dextrose 50 % 25 Gm/50 Ml Vial) 25 gm IVPUSH Q15M PRN; Protocol PRN Reason: per Hypoglycemia Standing Ord. Divalproex Sodium (Divalproex Sodium 500 Mg Tablet.Dr) 500 mg PO BID [facility] Last Admin: 11/25/20 08:33 Dose: Not Given Documented by: ZAY Non-Admin Reason: Patient Refused Docusate Sodium (Docusate Sodium 100 Mg Capsule) 100 mg PO DAILY PRN PRN Reason: Constipation Escitalopram Oxalate (Escitalopram Oxalate 20 Mg Tablet) 20 mg PO DAILY [facility] Last Admin: 11/25/20 08:33 Dose: Not Given Documented by: ZAY Non-Admin Reason: Patient Refused Glucose (Glucose Gel 15 Gm Gel..Gram.) 15 gm PO Q15M PRN; Protocol PRN Reason: per Hypoglycemia Standing Ord. Heparin Sodium (Porcine) (Heparin Sodium,Porcine 5,000 Unit/Ml Vial) 5,000 unit SUBCUT Q12H [facility] Last Admin: 11/25/20 08:32 Dose: 5,000 unit Documented by: ZAY Insulin Human Lispro (Insulin Lispro 100 Unit/Ml 3 Ml Vial) 0 unit SUBCUT QIDACHS [facility]; Protocol Last Admin: 11/25/20 07:32 Dose: 2 unit Documented by: ZAY Losartan Potassium (Losartan Potassium 50 Mg Tablet) 100 mg PO DAILY [facility]; Protocol Last Admin: 11/25/20 09:49 Dose: 100 mg Documented by: ZAY Ondansetron HCl (Ondansetron Hcl 4 Mg/2 Ml Vial) 4 mg IVPUSH Q8H PRN PRN Reason: Nausea and Vomiting Pioglitazone HCl (Pioglitazone Hcl 15 Mg Tablet) 15 mg PO DAILY [facility] Last Admin: 11/25/20 09:49 Dose: 15 mg Documented by: ZAY Sodium Chloride (0.9 % Sodium Chloride Flush 3 Ml Syringe) [facility] Last Admin: 11/25/20 09:49 Dose: 3 ml Documented by: ZAY Vitamin D (Cholecalciferol (Vitamin D3) 25 Mcg Tablet) 50 mcg PO DAILY [facility] Last Admin: 11/25/20 09:49 Dose: 50 mcg Documented by: ZAY Labs CBC & Chem 7: 11/22/20 05:52 11/22/20 05:52 Labs: Laboratory Results - last 24 hr 11/24/20 11/24/20 11/25/20 16:07 20:23 07:41 POC Glucose 255 H 211 H 167 H Assessment and Plan (1) Acute on chronic respiratory failure with hypoxia: Status: Acute (2) Pneumonia due to 2019-nCoV: Status: Acute Assessment and Plan: 50-year-old female unvaccinated presents to the hospital with complaints of shortness of breath found to have COVID-19 pneumonia with viral sepsis # acute hypoxic respiratory failure d/t covid 19--clinically she looks good, speak breathlessly # secondary to COVID-19 pneumonia -Persistent hypoxia, remains on high flow and NRB, will try to wean as alesia Continue dexamethasone 6 mg day 8 remdesivir, has completed 5 days Periodic inflamatory marker monitoring is becoming a long hauler # hypertension continue home medications of losartan, and amlodipine # diabetes BS high, restart Actos diabetic diet # anxiety and depression continue home medications # hyperlipidemia continue statin (lipitor) DVT prophylaxis Heparin subQ Quality Stroke Does the patient have a stroke diagnosis?: No VTE Prior VTE?: No VTE Risk Level:: Medical - moderate - high VTE Device Contraindication: Treatment Not Indicated VTE Drug Contraindication: N/A - Med Ordered
[2020-11-25 11:50] LABS: Glucose, Whole Blood 194 mg/dL (60-115)
[2020-11-25 16:39] LABS: Glucose, Whole Blood 242 mg/dL (60-115)
[2020-11-25 19:52] LABS: Glucose, Whole Blood 293 mg/dL (60-115)
[2020-11-26] VITALS (14 sets, daily range): BP systolic 123–158; BP diastolic 72–78; PULSE 64–80; RESP 18–188; TEMP 36.2–36.8; O2SAT 91–98
[2020-11-26] MEDS: 0.9 % Sodium Chloride Flush 3 ML SYRINGE IVFLUSH ×4 (00:04→22:27)
[2020-11-26 08:25] LABS: Glucose, Whole Blood 183 mg/dL (60-115)
[2020-11-26] MEDS: Losartan Potassium 50 MG TABLET 100 MG PO (09:29)
[2020-11-26] MEDS: Atorvastatin Calcium 10 MG TABLET PO (09:30)
[2020-11-26] MEDS: amLODIPine Besylate 5 MG TABLET PO (09:30)
[2020-11-26] MEDS: Cholecalciferol (Vitamin D3) 25 MCG TABLET 50 MCG PO (09:31)
[2020-11-26] MEDS: atenoloL 50 MG TABLET PO (09:31)
[2020-11-26] MEDS: Aspirin Enteric Coated 81 MG TABLET.DR PO (09:31)
[2020-11-26] MEDS: Heparin Sodium,Porcine 5,000 UNIT/ML VIAL 5000 UNIT SUBCUT ×2 (09:31→22:23)
[2020-11-26] MEDS: Insulin Lispro 100 UNIT/ML 3 ML VIAL SUBCUT ×4 (09:32→22:22)
[2020-11-26] MEDS: dexAMETHasone sod phosphate 4 MG/ML VIAL 6 MG IVPUSH (09:32)
[2020-11-26 11:04] LABS: Glucose, Whole Blood 214 mg/dL (60-115)
--- NOTE | 2020-11-26 11:35 | HO.PM.IMPN ---
Subjective Subjective Date of Service: 11/26/20 Interval History: Seen in f/u for covid relate acute hypxic respiratory failure, persistent hypOxia but clinically is feeling better Review of Systems sob no fever Physical Exam Vital Signs: Vital Signs: Last Vital Signs Temp 98.1 F 11/26/20 08:00 Pulse 66 11/26/20 09:31 Resp 18 11/26/20 11:33 BP 158/77 H 11/26/20 09:31 Pulse Ox 96 11/26/20 08:00 Body Mass Index 26.0 General: AO X 3, no acute distress Resp:? CTA bilateral, no wheezes and no rales CVS: S1,S2,RRR GI: +BS, NT, no distention Skin: No rash Neuro:? motor grossly intact Psych: appropriate affect Objective Data Active Medications Acetaminophen (Acetaminophen 325 Mg Tablet) 650 mg PO Q6H PRN PRN Reason: Pain, Mild (Pain Scale 1-3) Albuterol Sulfate (Albuterol Sulfate 90 Mcg 8 Gm Inhaler) 4 puff INHALE Q3H PRN PRN Reason: Shortness of Breath/Wheezing Albuterol/Ipratropium (Albuterol/Iprat 2.5/0.5mg 3 Ml Ampul.Neb) 3 ml INHALE RQ4H PRN PRN Reason: Shortness of Breath/Wheezing Amlodipine Besylate (Amlodipine Besylate 5 Mg Tablet) 5 mg PO DAILY [facility]; Protocol Last Admin: 11/26/20 09:30 Dose: 5 mg Documented by: GURMEET Aspirin (Aspirin Enteric Coated 81 Mg Tablet.Dr) 81 mg PO DAILY [facility] Last Admin: 11/26/20 09:31 Dose: 81 mg Documented by: GURMEET Atenolol (Atenolol 50 Mg Tablet) 50 mg PO DAILY [facility]; Protocol Last Admin: 11/26/20 09:31 Dose: 50 mg Documented by: GURMEET Atorvastatin Calcium (Atorvastatin Calcium 10 Mg Tablet) 10 mg PO DAILY [facility] Last Admin: 11/26/20 09:30 Dose: 10 mg Documented by: GURMEET Dexamethasone Sodium Phosphate (Dexamethasone Sod Phosphate 4 Mg/Ml Vial) 6 mg IVPUSH DAILY [facility] Last Admin: 11/26/20 09:32 Dose: 6 mg Documented by: GURMEET Dextrose (Dextrose 50 % 25 Gm/50 Ml Vial) 25 gm IVPUSH Q15M PRN; Protocol PRN Reason: per Hypoglycemia Standing Ord. Divalproex Sodium (Divalproex Sodium 500 Mg Tablet.) 500 mg PO BID [facility] Last Admin: 11/26/20 09:33 Dose: Not Given Documented by: GURMEET Non-Admin Reason: Patient Refused Docusate Sodium (Docusate Sodium 100 Mg Capsule) 100 mg PO DAILY PRN PRN Reason: Constipation Escitalopram Oxalate (Escitalopram Oxalate 20 Mg Tablet) 20 mg PO DAILY [facility] Last Admin: 11/26/20 09:45 Dose: Not Given Documented by: GURMEET Non-Admin Reason: Patient Refused Glucose (Glucose Gel 15 Gm Gel..Gram.) 15 gm PO Q15M PRN; Protocol PRN Reason: per Hypoglycemia Standing Ord. Heparin Sodium (Porcine) (Heparin Sodium,Porcine 5,000 Unit/Ml Vial) 5,000 unit SUBCUT Q12H [facility] Last Admin: 11/26/20 09:31 Dose: 5,000 unit Documented by: GURMEET Insulin Human Lispro (Insulin Lispro 100 Unit/Ml 3 Ml Vial) 0 unit SUBCUT QIDACHS [facility]; Protocol Last Admin: 11/26/20 09:32 Dose: 2 unit Documented by: GURMEET Losartan Potassium (Losartan Potassium 50 Mg Tablet) 100 mg PO DAILY [facility]; Protocol Last Admin: 11/26/20 09:29 Dose: 100 mg Documented by: GURMEET Ondansetron HCl (Ondansetron Hcl 4 Mg/2 Ml Vial) 4 mg IVPUSH Q8H PRN PRN Reason: Nausea and Vomiting Pioglitazone HCl (Pioglitazone Hcl 15 Mg Tablet) 15 mg PO DAILY [facility] Last Admin: 11/26/20 09:31 Dose: 15 mg Documented by: GURMEET Sodium Chloride (0.9 % Sodium Chloride Flush 3 Ml Syringe) [facility] Last Admin: 11/26/20 09:32 Dose: 3 ml Documented by: GURMEET Vitamin D (Cholecalciferol (Vitamin D3) 25 Mcg Tablet) 50 mcg PO DAILY [facility] Last Admin: 11/26/20 09:31 Dose: 50 mcg Documented by: GURMEET Labs CBC & Chem 7: 11/22/20 05:52 11/22/20 05:52 Labs: Laboratory Results - last 24 hr 11/25/20 11/25/20 11/25/20 11:37 16:35 19:45 POC Glucose 194 H 242 H 293 H 11/26/20 11/26/20 08:09 10:50 POC Glucose 183 H 214 H Assessment and Plan (1) Acute on chronic respiratory failure with hypoxia: Status: Acute (2) Pneumonia due to 2019-nCoV: Status: Acute Assessment and Plan: 50-year-old female unvaccinated presents to the hospital with complaints of shortness of breath found to have COVID-19 pneumonia with viral sepsis # acute hypoxic respiratory failure d/t covid 19--clinically she looks good, speak breathlessly # secondary to COVID-19 pneumonia -Persistent hypoxia, remains on high flow and NRB, will try to wean as alesia Continue dexamethasone 6 mg day 9 has completed 5 days of remdesivir, Periodic inflamatory marker monitoring # hypertension continue home medications of losartan, and amlodipine # diabetes BS high, restart Actos diabetic diet # anxiety and depression continue home medications # hyperlipidemia continue statin (lipitor) DVT prophylaxis Heparin subQ Quality Stroke Does the patient have a stroke diagnosis?: No VTE Prior VTE?: No VTE Risk Level:: Medical - moderate - high VTE Device Contraindication: Treatment Not Indicated VTE Drug Contraindication: N/A - Med Ordered
[2020-11-26 16:33] LABS: Glucose, Whole Blood 293 mg/dL (60-115)
[2020-11-26 19:54] LABS: Glucose, Whole Blood 366 mg/dL (60-115)
[2020-11-27] VITALS (12 sets, daily range): BP systolic 107–134; BP diastolic 67–83; PULSE 60–85; RESP 18–32; TEMP 36.1–37.8; O2SAT 91–95
[2020-11-27 07:29] LABS: Glucose, Whole Blood 153 mg/dL (60-115)
[2020-11-27] MEDS: dexAMETHasone sod phosphate 4 MG/ML VIAL 6 MG IVPUSH (09:33)
[2020-11-27] MEDS: Heparin Sodium,Porcine 5,000 UNIT/ML VIAL 5000 UNIT SUBCUT ×2 (09:33→21:03)
[2020-11-27] MEDS: atenoloL 50 MG TABLET PO (09:34)
[2020-11-27] MEDS: amLODIPine Besylate 5 MG TABLET PO (09:34)
[2020-11-27] MEDS: Atorvastatin Calcium 10 MG TABLET PO (09:34)
[2020-11-27] MEDS: Losartan Potassium 50 MG TABLET 100 MG PO (09:34)
[2020-11-27] MEDS: Cholecalciferol (Vitamin D3) 25 MCG TABLET 50 MCG PO (09:34)
[2020-11-27] MEDS: Aspirin Enteric Coated 81 MG TABLET.DR PO (09:35)
[2020-11-27] MEDS: 0.9 % Sodium Chloride Flush 3 ML SYRINGE IVFLUSH ×3 (09:47→21:12)
--- NOTE | 2020-11-27 10:31 | P.PNIM_ITS ---
Subjective Subjective Date of Service: 11/28/20 Interval History: Seen in f/u for covid relate acute hypxic respiratory failure. She remain hypoxic and still on NRB and High flow, but clinically saying she feels better Review of Systems Gen: no fever Resp: + sob, CV: no chest pain, BRANTLEY GI: No n/v, no abd pain Neuro: No confusion Physical Exam Vital Signs: Vital Signs: Last Vital Signs Temp 97.9 F 11/27/20 07:18 Pulse 85 11/27/20 09:34 Resp 18 11/27/20 08:10 BP 120/67 11/27/20 09:34 Pulse Ox 94 11/27/20 07:18 Body Mass Index 26.0 Objective Data Active Medications Acetaminophen (Acetaminophen 325 Mg Tablet) 650 mg PO Q6H PRN PRN Reason: Pain, Mild (Pain Scale 1-3) Albuterol Sulfate (Albuterol Sulfate 90 Mcg 8 Gm Inhaler) 4 puff INHALE Q3H PRN PRN Reason: Shortness of Breath/Wheezing Amlodipine Besylate (Amlodipine Besylate 5 Mg Tablet) 5 mg PO DAILY [facility]; Protocol Last Admin: 11/27/20 09:34 Dose: 5 mg Documented by: GURMEET Aspirin (Aspirin Enteric Coated 81 Mg Tablet.) 81 mg PO DAILY [facility] Last Admin: 11/27/20 09:35 Dose: 81 mg Documented by: GURMEET Atenolol (Atenolol 50 Mg Tablet) 50 mg PO DAILY [facility]; Protocol Last Admin: 11/27/20 09:34 Dose: 50 mg Documented by: GURMEET Atorvastatin Calcium (Atorvastatin Calcium 10 Mg Tablet) 10 mg PO DAILY [facility] Last Admin: 11/27/20 09:34 Dose: 10 mg Documented by: GURMEET Dexamethasone Sodium Phosphate (Dexamethasone Sod Phosphate 4 Mg/Ml Vial) 6 mg IVPUSH DAILY [facility] Last Admin: 11/27/20 09:33 Dose: 6 mg Documented by: GURMEET Dextrose (Dextrose 50 % 25 Gm/50 Ml Vial) 25 gm IVPUSH Q15M PRN; Protocol PRN Reason: per Hypoglycemia Standing Ord. Divalproex Sodium (Divalproex Sodium 500 Mg Tablet.) 500 mg PO BID [facility] Last Admin: 11/27/20 09:35 Dose: Not Given Documented by: HO.HOULEJ Non-Admin Reason: Patient Refused Docusate Sodium (Docusate Sodium 100 Mg Capsule) 100 mg PO DAILY PRN PRN Reason: Constipation Escitalopram Oxalate (Escitalopram Oxalate 20 Mg Tablet) 20 mg PO DAILY [facility] Last Admin: 11/27/20 09:35 Dose: Not Given Documented by: GURMEET Non-Admin Reason: Patient Refused Glucose (Glucose Gel 15 Gm Gel..Gram.) 15 gm PO Q15M PRN; Protocol PRN Reason: per Hypoglycemia Standing Ord. Heparin Sodium (Porcine) (Heparin Sodium,Porcine 5,000 Unit/Ml Vial) 5,000 unit SUBCUT Q12H [facility] Last Admin: 11/27/20 09:33 Dose: 5,000 unit Documented by: GURMEET Insulin Human Lispro (Insulin Lispro 100 Unit/Ml 3 Ml Vial) 0 unit SUBCUT QIDACHS [facility]; Protocol Last Admin: 11/27/20 08:34 Dose: Not Given Documented by: GURMEET Non-Admin Reason: Patient Refused Losartan Potassium (Losartan Potassium 50 Mg Tablet) 100 mg PO DAILY [facility]; Protocol Last Admin: 11/27/20 09:34 Dose: 100 mg Documented by: GURMEET Ondansetron HCl (Ondansetron Hcl 4 Mg/2 Ml Vial) 4 mg IVPUSH Q8H PRN PRN Reason: Nausea and Vomiting Pioglitazone HCl (Pioglitazone Hcl 15 Mg Tablet) 15 mg PO DAILY [facility] Last Admin: 11/27/20 09:34 Dose: 15 mg Documented by: GURMEET Sodium Chloride (0.9 % Sodium Chloride Flush 3 Ml Syringe) [facility] Last Admin: 11/27/20 09:47 Dose: 3 ml Documented by: GURMEET Vitamin D (Cholecalciferol (Vitamin D3) 25 Mcg Tablet) 50 mcg PO DAILY [facility] Last Admin: 11/27/20 09:34 Dose: 50 mcg Documented by: GURMEET Labs CBC & Chem 7: 11/27/20 10:59 11/27/20 10:59 Labs: Laboratory Results - last 24 hr 11/26/20 11/26/20 11/26/20 10:50 16:22 19:49 POC Glucose 214 H 293 H 366 H* 11/27/20 07:19 POC Glucose 153 H Assessment and Plan (1) Acute on chronic respiratory failure with hypoxia: Status: Acute (2) Pneumonia due to 2019-nCoV: Status: Acute Assessment and Plan: 50-year-old female unvaccinated presents to the hospital with complaints of shortness of breath found to have COVID-19 pneumonia with viral sepsis # acute hypoxic respiratory failure d/t covid 19--clinically she looks good, speak breathlessly # secondary to COVID-19 pneumonia -Persistent hypoxia, remains on high flow and NRB, will try to wean as alesia Continue dexamethasone 6 mg day 10 has completed 5 days of remdesivir, Periodic inflamatory marker monitoring # hypertension continue home medications of losartan, and amlodipine # diabetes BS high, restart Actos diabetic diet # anxiety and depression continue home medications # hyperlipidemia continue statin (lipitor) DVT prophylaxis Heparin subQ Quality Stroke Does the patient have a stroke diagnosis?: No VTE Prior VTE?: No VTE Risk Level:: Medical - moderate - high VTE Device Contraindication: Treatment Not Indicated VTE Drug Contraindication: N/A - Med Ordered
[2020-11-27 10:56] LABS: Glucose, Whole Blood 277 mg/dL (60-115)
[2020-11-27 11:08] LABS: Hematocrit 43.7 % (37-47); Hemoglobin 14.3 g/dl (12.0-16.0); Mean Corpuscular HGB Conc 32.7 g/dl (31.0-35.0); Mean Corpuscular Hemoglobin 27.6 pg (27.0-33.0); Mean Corpuscular Volume 84.2 fL (80-98); Mean Platelet Volume 10.7 fL (9.4-12.3); Platelet Count 303 X10*3/uL (160-400); Red Blood Count 5.19 X10*6/uL (4.20-5.50); Red Cell Distribution Width 14.7 % (11.0-16.0); White Blood Count 21.1 X10*3/uL (4.8-10.8)
[2020-11-27 11:21] LABS: Anion Gap 14 (12-20); Blood Urea Nitrogen 41 mg/dL (9-16); Calcium 8.7 mg/dL (8.4-10.2); Carbon Dioxide 23 mmol/L (22-29); Chloride 102 mmol/L (96-108); Creatinine Clr Calc Pharmacy 46.5; Estimated Glomerular Filt Rate 34; Glucose Random 296 mg/dL (60-115); Potassium 5.1 mmol/L (3.3-5.1); Sodium 134 mmol/L (135-145)
[2020-11-27] MEDS: Insulin Lispro 100 UNIT/ML 3 ML VIAL SUBCUT ×3 (12:27→21:03)
[2020-11-27 16:36] LABS: Glucose, Whole Blood 228 mg/dL (60-115)
--- NOTE | 2020-11-27 16:46 | PC.NURSE ---
Patient OOB to commode at the beginning of shift. With High flow 55L and 100% and NRB patient SpO2 dropped to 82% with exertion. When patient had to remove NRB at mealtimes SpO2 dropped to 82-84% with high flow while sitting upright with feet danglin. Patient would recover quickly at rest and with NRB reapplied in addition to High flow at 55L and 100%.
[2020-11-27 20:40] LABS: Glucose, Whole Blood 232 mg/dL (60-115)
[2020-11-28] VITALS (14 sets, daily range): BP systolic 101–140; BP diastolic 67–85; PULSE 58–92; RESP 18–36; TEMP 36.1–36.8; O2SAT 91–98
[2020-11-28 06:27] LABS: C Reactive Protein 7.53 mg/dL (< or = 0.50)
[2020-11-28 08:11] LABS: Glucose, Whole Blood 178 mg/dL (60-115)
[2020-11-28] MEDS: Insulin Lispro 100 UNIT/ML 3 ML VIAL SUBCUT ×4 (09:46→20:25)
[2020-11-28] MEDS: 0.9 % Sodium Chloride Flush 3 ML SYRINGE IVFLUSH ×3 (09:48→20:26)
[2020-11-28] MEDS: Losartan Potassium 50 MG TABLET 100 MG PO (09:48)
[2020-11-28] MEDS: Cholecalciferol (Vitamin D3) 25 MCG TABLET 50 MCG PO (09:49)
[2020-11-28] MEDS: Atorvastatin Calcium 10 MG TABLET PO (09:50)
[2020-11-28] MEDS: amLODIPine Besylate 5 MG TABLET PO (09:50)
[2020-11-28] MEDS: atenoloL 50 MG TABLET PO (09:51)
[2020-11-28] MEDS: dexAMETHasone sod phosphate 4 MG/ML VIAL 6 MG IVPUSH (09:51)
[2020-11-28] MEDS: Aspirin Enteric Coated 81 MG TABLET.DR PO (09:51)
[2020-11-28] MEDS: Heparin Sodium,Porcine 5,000 UNIT/ML VIAL 5000 UNIT SUBCUT ×2 (09:52→20:26)
--- NOTE | 2020-11-28 11:26 | HO.PM.IMPN ---
Subjective Subjective Date of Service: 11/28/20 Interval History: Seen in f/u for covid relate acute hypxic respiratory failure. She remain hypoxic and still on NRB and High flow, but clinically saying she feel better, attempting to reduce oxygen and desaturated signficantly so back on high flow and NRB Review of Systems Gen: no fever Resp: + sob, no cough CV: no chest, no BRANTLEY, no leg edema GI: No n/v, no abd pain Neuro: No confusion Physical Exam Vital Signs: Vital Signs: Last Vital Signs Temp 96.9 F 11/28/20 11:14 Pulse 70 11/28/20 11:14 Resp 18 11/28/20 11:16 BP 101/67 11/28/20 11:14 Pulse Ox 96 11/28/20 11:14 Body Mass Index 26.0 General: AO X 3, no acute distress Resp: CTA bilateral, no accessory muslce use CVS: S1,S2,RRR GI: +BS, NT, no distention Skin: No rash Neuro: motor grossly intact Psych: appropriate affect Objective Data Active Medications Acetaminophen (Acetaminophen 325 Mg Tablet) 650 mg PO Q6H PRN PRN Reason: Pain, Mild (Pain Scale 1-3) Albuterol Sulfate (Albuterol Sulfate 90 Mcg 8 Gm Inhaler) 4 puff INHALE Q3H PRN PRN Reason: Shortness of Breath/Wheezing Amlodipine Besylate (Amlodipine Besylate 5 Mg Tablet) 5 mg PO DAILY [facility]; Protocol Last Admin: 11/28/20 09:50 Dose: 5 mg Documented by: MANJINDER Aspirin (Aspirin Enteric Coated 81 Mg Tablet.) 81 mg PO DAILY [facility] Last Admin: 11/28/20 09:51 Dose: 81 mg Documented by: MANJINDER Atenolol (Atenolol 50 Mg Tablet) 50 mg PO DAILY [facility]; Protocol Last Admin: 11/28/20 09:51 Dose: 50 mg Documented by: MANJINDER Atorvastatin Calcium (Atorvastatin Calcium 10 Mg Tablet) 10 mg PO DAILY [facility] Last Admin: 11/28/20 09:50 Dose: 10 mg Documented by: MANJINDER Dexamethasone Sodium Phosphate (Dexamethasone Sod Phosphate 4 Mg/Ml Vial) 6 mg IVPUSH DAILY [facility] Last Admin: 11/28/20 09:51 Dose: 6 mg Documented by: MANJINDER Dextrose (Dextrose 50 % 25 Gm/50 Ml Vial) 25 gm IVPUSH Q15M PRN; Protocol PRN Reason: per Hypoglycemia Standing Ord. Divalproex Sodium (Divalproex Sodium 500 Mg Tablet.Dr) 500 mg PO BID [facility] Last Admin: 11/28/20 10:12 Dose: Not Given Documented by: MANJINDER Non-Admin Reason: Patient Refused Docusate Sodium (Docusate Sodium 100 Mg Capsule) 100 mg PO DAILY PRN PRN Reason: Constipation Escitalopram Oxalate (Escitalopram Oxalate 20 Mg Tablet) 20 mg PO DAILY [facility] Last Admin: 11/28/20 10:12 Dose: Not Given Documented by: MANJINDER Non-Admin Reason: Patient Refused Glucose (Glucose Gel 15 Gm Gel..Gram.) 15 gm PO Q15M PRN; Protocol PRN Reason: per Hypoglycemia Standing Ord. Heparin Sodium (Porcine) (Heparin Sodium,Porcine 5,000 Unit/Ml Vial) 5,000 unit SUBCUT Q12H [facility] Last Admin: 11/28/20 09:52 Dose: 5,000 unit Documented by: MANJINDER Insulin Human Lispro (Insulin Lispro 100 Unit/Ml 3 Ml Vial) 0 unit SUBCUT QIDACHS [facility]; Protocol Last Admin: 11/28/20 09:46 Dose: 2 unit Documented by: MANJINDER Losartan Potassium (Losartan Potassium 50 Mg Tablet) 100 mg PO DAILY [facility]; Protocol Last Admin: 11/28/20 09:48 Dose: 100 mg Documented by: MANJINDER Ondansetron HCl (Ondansetron Hcl 4 Mg/2 Ml Vial) 4 mg IVPUSH Q8H PRN PRN Reason: Nausea and Vomiting Pioglitazone HCl (Pioglitazone Hcl 15 Mg Tablet) 15 mg PO DAILY [facility] Last Admin: 11/28/20 10:12 Dose: 15 mg Documented by: MANJINDER Sodium Chloride (0.9 % Sodium Chloride Flush 3 Ml Syringe) 3 ml IVFLUSH QSHIFT [facility] Last Admin: 11/28/20 09:48 Dose: 3 ml Documented by: MANJINDER Vitamin D (Cholecalciferol (Vitamin D3) 25 Mcg Tablet) 50 mcg PO DAILY [facility] Last Admin: 11/28/20 09:49 Dose: 50 mcg Documented by: MANJINDER Labs CBC & Chem 7: 11/27/20 10:59 11/27/20 10:59 Labs: Laboratory Results - last 24 hr 11/27/20 11/27/20 11/28/20 16:33 20:34 05:34 POC Glucose 228 H 232 H C-Reactive Protein 7.53 H 11/28/20 07:50 POC Glucose 178 H C-Reactive Protein Assessment and Plan (1) Acute on chronic respiratory failure with hypoxia: Status: Acute (2) Pneumonia due to 2019-nCoV: Status: Acute Assessment and Plan: 50-year-old female unvaccinated presents to the hospital with complaints of shortness of breath found to have COVID-19 pneumonia with viral sepsis # acute hypoxic respiratory failure d/t covid 19--clinically she looks good, speak breathlessly # secondary to COVID-19 pneumonia -Persistent hypoxia, remains on high flow and NRB, slow to wean completed 10 days of Dexam, add Solumedrol has completed 5 days of remdesivir, Periodic inflamatory marker monitoring -CRP is going up # hypertension continue home medications of losartan, and amlodipine # diabetes BS high, restart Actos diabetic diet # anxiety and depression continue home medications # hyperlipidemia continue statin (lipitor) DVT prophylaxis Heparin subQ Quality Stroke Does the patient have a stroke diagnosis?: No VTE Prior VTE?: No VTE Risk Level:: Medical - moderate - high VTE Device Contraindication: Treatment Not Indicated VTE Drug Contraindication: N/A - Med Ordered
[2020-11-28 11:29] LABS: Glucose, Whole Blood 195 mg/dL (60-115)
--- NOTE | 2020-11-28 15:17 | MHC.CM.PN ---
PT NOT YET MEDICALLY CLEARED, REMAINS ON NRB AND HIGH FLOW O2 DC PLAN REMAINS HOME WITH NO SERVICES VS HOME WITH [facility] IF PT DC'S WITH NEW O2. SON TO TRANSPORT
[2020-11-28 16:06] LABS: Glucose, Whole Blood 271 mg/dL (60-115)
[2020-11-28 19:56] LABS: Glucose, Whole Blood 247 mg/dL (60-115)
[2020-11-29] VITALS (12 sets, daily range): BP systolic 115–130; BP diastolic 60–77; PULSE 56–63; RESP 18–20; TEMP 36.1–36.9; O2SAT 91–95
[2020-11-29 07:18] LABS: Glucose, Whole Blood 162 mg/dL (60-115)
[2020-11-29] MEDS: dexAMETHasone sod phosphate 4 MG/ML VIAL 6 MG IVPUSH (07:54)
[2020-11-29] MEDS: Heparin Sodium,Porcine 5,000 UNIT/ML VIAL 5000 UNIT SUBCUT ×2 (07:54→20:32)
[2020-11-29] MEDS: 0.9 % Sodium Chloride Flush 3 ML SYRINGE IVFLUSH ×3 (07:55→22:14)
[2020-11-29] MEDS: Atorvastatin Calcium 10 MG TABLET PO (07:55)
[2020-11-29] MEDS: Aspirin Enteric Coated 81 MG TABLET.DR PO (07:55)
[2020-11-29] MEDS: Cholecalciferol (Vitamin D3) 25 MCG TABLET 50 MCG PO (07:55)
[2020-11-29] MEDS: Losartan Potassium 50 MG TABLET 100 MG PO (07:55)
[2020-11-29] MEDS: Insulin Lispro 100 UNIT/ML 3 ML VIAL SUBCUT ×4 (07:55→20:31)
[2020-11-29] MEDS: Escitalopram Oxalate 20 MG TABLET PO (07:56)
[2020-11-29] MEDS: amLODIPine Besylate 5 MG TABLET PO (07:56)
[2020-11-29] MEDS: atenoloL 50 MG TABLET PO (07:56)
--- NOTE | 2020-11-29 10:02 | HO.PM.IMPN ---
Subjective Subjective Date of Service: 12/09/20 Interval History: ?Seen in f/u for covid relate acute hypOxic respiratory failure. Persistent hyoxia, sob on HF+NRB, however says she feels fine on Review of Systems Gen:?no fever Resp:?+ sob, no cough CV:?no chest, no BRANTLEY, no leg edema GI:?No n/v, no abd pain Neuro:?No confusion Physical Exam Vital Signs: Vital Signs: Last Vital Signs Temp 98.3 F 11/29/20 07:31 Pulse 62 11/29/20 07:56 Resp 18 11/29/20 07:49 BP 118/75 11/29/20 07:56 Pulse Ox 94 11/29/20 07:31 Body Mass Index 26.0 General: AO X 3, no acute distress Resp:? diminished breath sounds, no accessory muslce use CVS: S1,S2,RRR GI: +BS, NT, no distention Skin: No rash Neuro:? motor grossly intact Psych: appropriate affect Objective Data Active Medications Acetaminophen (Acetaminophen 325 Mg Tablet) 650 mg PO Q6H PRN PRN Reason: Pain, Mild (Pain Scale 1-3) Albuterol Sulfate (Albuterol Sulfate 90 Mcg 8 Gm Inhaler) 4 puff INHALE Q3H PRN PRN Reason: Shortness of Breath/Wheezing Amlodipine Besylate (Amlodipine Besylate 5 Mg Tablet) 5 mg PO DAILY [facility]; Protocol Last Admin: 11/29/20 07:56 Dose: 5 mg Documented by: ACOSTA Aspirin (Aspirin Enteric Coated 81 Mg Tablet.) 81 mg PO DAILY [facility] Last Admin: 11/29/20 07:55 Dose: 81 mg Documented by: ACOSTA Atenolol (Atenolol 50 Mg Tablet) 50 mg PO DAILY [facility]; Protocol Last Admin: 11/29/20 07:56 Dose: 50 mg Documented by: ACOSTA Atorvastatin Calcium (Atorvastatin Calcium 10 Mg Tablet) 10 mg PO DAILY [facility] Last Admin: 11/29/20 07:55 Dose: 10 mg Documented by: ACOSTA Dexamethasone Sodium Phosphate (Dexamethasone Sod Phosphate 4 Mg/Ml Vial) 6 mg IVPUSH DAILY [facility] Last Admin: 11/29/20 07:54 Dose: 6 mg Documented by: ACOSTA Dextrose (Dextrose 50 % 25 Gm/50 Ml Vial) 25 gm IVPUSH Q15M PRN; Protocol PRN Reason: per Hypoglycemia Standing Ord. Divalproex Sodium (Divalproex Sodium 500 Mg Tablet.) 500 mg PO BID [facility] Last Admin: 11/29/20 08:05 Dose: Not Given Documented by: ACOSTA Non-Admin Reason: Patient Refused Docusate Sodium (Docusate Sodium 100 Mg Capsule) 100 mg PO DAILY PRN PRN Reason: Constipation Escitalopram Oxalate (Escitalopram Oxalate 20 Mg Tablet) 20 mg PO DAILY [facility] Last Admin: 11/29/20 07:56 Dose: 20 mg Documented by: ACOSTA Glucose (Glucose Gel 15 Gm Gel..Gram.) 15 gm PO Q15M PRN; Protocol PRN Reason: per Hypoglycemia Standing Ord. Heparin Sodium (Porcine) (Heparin Sodium,Porcine 5,000 Unit/Ml Vial) 5,000 unit SUBCUT Q12H [facility] Last Admin: 11/29/20 07:54 Dose: 5,000 unit Documented by: ACOSTA Insulin Human Lispro (Insulin Lispro 100 Unit/Ml 3 Ml Vial) 0 unit SUBCUT QIDACHS [facility]; Protocol Last Admin: 11/29/20 07:55 Dose: 2 unit Documented by: ACOSTA Losartan Potassium (Losartan Potassium 50 Mg Tablet) 100 mg PO DAILY [facility]; Protocol Last Admin: 11/29/20 07:55 Dose: 100 mg Documented by: ACOSTA Ondansetron HCl (Ondansetron Hcl 4 Mg/2 Ml Vial) 4 mg IVPUSH Q8H PRN PRN Reason: Nausea and Vomiting Pioglitazone HCl (Pioglitazone Hcl 15 Mg Tablet) 15 mg PO DAILY [facility] Last Admin: 11/29/20 07:56 Dose: 15 mg Documented by: ACOSTA Sodium Chloride (0.9 % Sodium Chloride Flush 3 Ml Syringe) [facility] Last Admin: 11/29/20 07:55 Dose: 3 ml Documented by: ACOSTA Vitamin D (Cholecalciferol (Vitamin D3) 25 Mcg Tablet) 50 mcg PO DAILY [facility] Last Admin: 11/29/20 07:55 Dose: 50 mcg Documented by: ACOSTA Labs CBC & Chem 7: 12/08/20 06:28 12/09/20 06:41 Labs: Laboratory Results - last 24 hr 11/28/20 11/28/20 11/28/20 11:08 16:02 19:52 POC Glucose 195 H 271 H 247 H 11/29/20 07:13 POC Glucose 162 H Assessment and Plan (1) Acute on chronic respiratory failure with hypoxia: Status: Acute (2) Pneumonia due to 2019-nCoV: Status: Acute Assessment and Plan: 50-year-old female unvaccinated presents to the hospital with complaints of shortness of breath found to have COVID-19 pneumonia with viral sepsis # Acute hypoxic respiratory failure d/t covid 19--clinically she looks good, speak breathlessly but very hypoxic -Persistent hypoxia, remains on high flow and NRB, slow to wean completed 10 days of Dexam, now Solumedrol completed 5 days of remdesivir, Periodic inflamatory marker monitoring -CRP is going up--not good # Hypertension--continue Norvasc, hold Losartan d/t PEREZ #PEREZ--now likely pre renal state, add IVF and reassess tomorrow #Diabetes--BS ok -continue Actos, SSI # Anxiety and depression continue home medications # Hyperlipidemia continue statin (lipitor) DVT prophylaxis Heparin subQ Quality Stroke Does the patient have a stroke diagnosis?: No VTE Prior VTE?: No VTE Risk Level:: Medical - moderate - high VTE Device Contraindication: Treatment Not Indicated VTE Drug Contraindication: N/A - Med Ordered
[2020-11-29] MEDS: methylPREDNISolone Sod Succ 40 MG/ML VIAL 20 MG IVPUSH ×2 (10:43→22:14)
[2020-11-29] MEDS: Famotidine 20 MG TABLET 40 MG PO ×2 (10:43→20:32)
[2020-11-29 10:59] LABS: Glucose, Whole Blood 299 mg/dL (60-115)
[2020-11-29 16:02] LABS: Glucose, Whole Blood 246 mg/dL (60-115)
[2020-11-29 20:00] LABS: Glucose, Whole Blood 276 mg/dL (60-115)
[2020-11-30] VITALS (14 sets, daily range): BP systolic 108–158; BP diastolic 56–82; PULSE 55–86; RESP 18–20; TEMP 36.1–37.4; O2SAT 90–96
[2020-11-30 07:26] LABS: Glucose, Whole Blood 193 mg/dL (60-115)
[2020-11-30] MEDS: 0.9 % Sodium Chloride Flush 3 ML SYRINGE IVFLUSH ×3 (08:14→19:50)
[2020-11-30] MEDS: Famotidine 20 MG TABLET 40 MG PO ×2 (08:14→19:49)
[2020-11-30] MEDS: Heparin Sodium,Porcine 5,000 UNIT/ML VIAL 5000 UNIT SUBCUT ×2 (08:14→19:49)
[2020-11-30] MEDS: Cholecalciferol (Vitamin D3) 25 MCG TABLET 50 MCG PO (08:14)
[2020-11-30] MEDS: Insulin Lispro 100 UNIT/ML 3 ML VIAL SUBCUT ×4 (08:14→19:50)
[2020-11-30] MEDS: atenoloL 50 MG TABLET PO (08:15)
[2020-11-30] MEDS: Aspirin Enteric Coated 81 MG TABLET.DR PO (08:15)
[2020-11-30] MEDS: amLODIPine Besylate 5 MG TABLET PO (08:15)
[2020-11-30] MEDS: Escitalopram Oxalate 20 MG TABLET PO (08:15)
[2020-11-30] MEDS: Atorvastatin Calcium 10 MG TABLET PO (08:15)
[2020-11-30] MEDS: methylPREDNISolone Sod Succ 40 MG/ML VIAL 20 MG IVPUSH ×2 (10:32→19:49)
[2020-11-30 11:29] LABS: Glucose, Whole Blood 212 mg/dL (60-115)
--- NOTE | 2020-11-30 14:31 | MHC.CM.PN ---
Female 50 DX covid per md rounds pt continues need for supplemental oxygen. She is on high jatinder O2 via Non rebreather face mask.
[2020-11-30 16:20] LABS: Glucose, Whole Blood 321 mg/dL (60-115)
--- NOTE | 2020-11-30 16:42 | P.PNIM_ITS ---
Subjective Subjective Date of Service: 11/30/20 Interval History: Patient being followed for COVID infection and hypoxic respiratory failure, complaining of weakness and shortness of breath, is still requiring high-flow oxygen and non-rebreather mask. Review of Systems General no headache, no dizziness no fever chills. CVS no chest pain, no palpitation. Respiratory no cough , positive shortness of breath Gastrointestinal no nausea no vomiting, no abdominal pain Review of Systems: Yes all other systems are reviewed and are negative Physical Exam Vital Signs: Vital Signs: Last Vital Signs Temp 96.9 F 11/30/20 15:07 Pulse 57 11/30/20 15:07 Resp 20 11/30/20 15:15 BP 108/56 L 11/30/20 15:07 Pulse Ox 96 11/30/20 15:07 Body Mass Index 26.0 General patient resting comfortably in no acute distress. Neck supple no JVD. CVS regular rate rhythm, Respiratory lungs bilateral rhonchi, poor air entry, no respiratory distress, diminished breath sound Gastrointestinal abdomen soft, nontender, bowel sounds audible, no guarding , no rigidity. Extremities no edema. Neuro nonfocal , speech clear. Skin no rash Objective Data Active Medications Acetaminophen (Acetaminophen 325 Mg Tablet) 650 mg PO Q6H PRN PRN Reason: Pain, Mild (Pain Scale 1-3) Albuterol Sulfate (Albuterol Sulfate 90 Mcg 8 Gm Inhaler) 4 puff INHALE Q3H PRN PRN Reason: Shortness of Breath/Wheezing Amlodipine Besylate (Amlodipine Besylate 5 Mg Tablet) 5 mg PO DAILY [facility]; Protocol Last Admin: 11/30/20 08:15 Dose: 5 mg Documented by: ACOSTA Aspirin (Aspirin Enteric Coated 81 Mg Tablet.) 81 mg PO DAILY [facility] Last Admin: 11/30/20 08:15 Dose: 81 mg Documented by: ACOSTA Atenolol (Atenolol 50 Mg Tablet) 50 mg PO DAILY [facility]; Protocol Last Admin: 11/30/20 08:15 Dose: 50 mg Documented by: ACOSTA Atorvastatin Calcium (Atorvastatin Calcium 10 Mg Tablet) 10 mg PO DAILY [facility] Last Admin: 11/30/20 08:15 Dose: 10 mg Documented by: ACOSTA Dextrose (Dextrose 50 % 25 Gm/50 Ml Vial) 25 gm IVPUSH Q15M PRN; Protocol PRN Reason: per Hypoglycemia Standing Ord. Divalproex Sodium (Divalproex Sodium 500 Mg Tablet.Dr) 500 mg PO BID [facility] Last Admin: 11/30/20 08:15 Dose: Not Given Documented by: ACOSTA Non-Admin Reason: Patient Refused Docusate Sodium (Docusate Sodium 100 Mg Capsule) 100 mg PO DAILY PRN PRN Reason: Constipation Escitalopram Oxalate (Escitalopram Oxalate 20 Mg Tablet) 20 mg PO DAILY [facility] Last Admin: 11/30/20 08:15 Dose: 20 mg Documented by: ACOSTA Famotidine (Famotidine 20 Mg Tablet) 40 mg PO BID [facility] Last Admin: 11/30/20 08:14 Dose: 40 mg Documented by: ACOSTA Glucose (Glucose Gel 15 Gm Gel..Gram.) 15 gm PO Q15M PRN; Protocol PRN Reason: per Hypoglycemia Standing Ord. Heparin Sodium (Porcine) (Heparin Sodium,Porcine 5,000 Unit/Ml Vial) 5,000 unit SUBCUT Q12H [facility] Last Admin: 11/30/20 08:14 Dose: 5,000 unit Documented by: ACOSTA Insulin Human Lispro (Insulin Lispro 100 Unit/Ml 3 Ml Vial) 0 unit SUBCUT QIDACHS [facility]; Protocol Last Admin: 11/30/20 12:09 Dose: 4 unit Documented by: ACOSTA Methylprednisolone Sodium Succinate (Methylprednisolone Sod Succ 40 Mg/Ml Vial) 20 mg IVPUSH Q12H [facility] Last Admin: 11/30/20 10:32 Dose: 20 mg Documented by: ACOSTA Ondansetron HCl (Ondansetron Hcl 4 Mg/2 Ml Vial) 4 mg IVPUSH Q8H PRN PRN Reason: Nausea and Vomiting Pioglitazone HCl (Pioglitazone Hcl 15 Mg Tablet) 15 mg PO DAILY [facility] Last Admin: 11/30/20 08:15 Dose: 15 mg Documented by: ACOSTA Sodium Chloride (0.9 % Sodium Chloride Flush 3 Ml Syringe) 3 ml IVFLUSH QSHIFT [facility] Last Admin: 11/30/20 08:14 Dose: 3 ml Documented by: ACOSTA Vitamin D (Cholecalciferol (Vitamin D3) 25 Mcg Tablet) 50 mcg PO DAILY [facility] Last Admin: 11/30/20 08:14 Dose: 50 mcg Documented by: ACOSTA Labs CBC & Chem 7: 11/27/20 10:59 11/27/20 10:59 Labs: Laboratory Results - last 24 hr 11/29/20 11/30/20 11/30/20 19:55 07:16 11:23 POC Glucose 276 H 193 H 212 H 11/30/20 16:15 POC Glucose 321 H Assessment and Plan (1) Acute on chronic respiratory failure with hypoxia: Status: Acute (2) Pneumonia due to 2019-nCoV: Status: Acute (3) COVID-19 virus infection: Status: Acute Assessment and Plan: 50-year-old female unvaccinated presents to the hospital with complaints of shortness of breath found to have COVID-19 pneumonia with viral sepsis # Acute hypoxic respiratory failure d/t covid 19 Persistent hypoxia and shortness of breath remains on high-flow oxygen and non-rebreather Strongly recommended out of bed to chair, will add incentive spirometry ,cough medicine completed 10 days of Dexam,? completed 5 days of? remdesivir, CRP 7.53 down from 13.08 Continue low-dose IV Solu Medrol/ wean oxygen recommended frequent position change , strongly recommended out of bed to chair ambulation and to use incentive spirometery # Hypertension--continue Norvasc and atenolol, BP stable, hold Losartan d/t PEREZ #PEREZ--now likely pre renal state, avoid nephrotoxins recheck BMP at a.m. #Diabetes--BS elevated likely due to steroid,continue Actos, and adjust SSI # Anxiety and depression continue home medications # Hyperlipidemia continue statin (lipitor) DVT prophylaxis Heparin subQ Quality Stroke Does the patient have a stroke diagnosis?: No VTE Prior VTE?: No VTE Risk Level:: Medical - moderate - high VTE Device Contraindication: Treatment Not Indicated VTE Drug Contraindication: N/A - Med Ordered
[2020-11-30] MEDS: Zinc Sulfate 220 MG CAPSULE PO (17:24)
[2020-11-30] MEDS: Ascorbic Acid 500 MG TABLET PO (17:24)
--- NOTE | 2020-11-30 18:24 | PC.NURSE ---
Patient OOB to recliner for good part of shift. Incentive spirometer taught to patient. HF weaned to 55L/85% by respiratory.
[2020-11-30 19:38] LABS: Glucose, Whole Blood 349 mg/dL (60-115)
[2020-12-01] VITALS (17 sets, daily range): BP systolic 125–148; BP diastolic 68–86; PULSE 52–80; RESP 18–20; TEMP 36–36.9; O2SAT 89–97
[2020-12-01 07:09] LABS: Anion Gap 14 (12-20); Blood Urea Nitrogen 51 mg/dL (9-16); Calcium 8.7 mg/dL (8.4-10.2); Carbon Dioxide 22 mmol/L (22-29); Chloride 102 mmol/L (96-108); Creatinine Clr Calc Pharmacy 62.3; Estimated Glomerular Filt Rate 48; Glucose Random 211 mg/dL (60-115); Potassium 5.6 mmol/L (3.3-5.1); Sodium 132 mmol/L (135-145)
[2020-12-01 08:06] LABS: Glucose, Whole Blood 189 mg/dL (60-115)
[2020-12-01] MEDS: Ascorbic Acid 500 MG TABLET PO (08:13)
[2020-12-01] MEDS: Zinc Sulfate 220 MG CAPSULE PO (08:13)
[2020-12-01] MEDS: Escitalopram Oxalate 20 MG TABLET PO (08:13)
[2020-12-01] MEDS: Aspirin Enteric Coated 81 MG TABLET.DR PO (08:13)
[2020-12-01] MEDS: amLODIPine Besylate 5 MG TABLET PO (08:14)
[2020-12-01] MEDS: Atorvastatin Calcium 10 MG TABLET PO (08:14)
[2020-12-01] MEDS: Cholecalciferol (Vitamin D3) 25 MCG TABLET 50 MCG PO (08:15)
[2020-12-01] MEDS: Famotidine 20 MG TABLET 40 MG PO ×2 (08:15→20:16)
[2020-12-01] MEDS: Heparin Sodium,Porcine 5,000 UNIT/ML VIAL 5000 UNIT SUBCUT ×2 (08:16→20:17)
[2020-12-01] MEDS: methylPREDNISolone Sod Succ 40 MG/ML VIAL 20 MG IVPUSH ×2 (08:16→20:16)
[2020-12-01] MEDS: atenoloL 50 MG TABLET PO (08:17)
[2020-12-01] MEDS: Insulin Lispro 100 UNIT/ML 3 ML VIAL SUBCUT ×4 (08:17→20:16)
[2020-12-01] MEDS: 0.9 % Sodium Chloride Flush 3 ML SYRINGE IVFLUSH ×3 (08:17→20:18)
[2020-12-01 12:08] LABS: Glucose, Whole Blood 389 mg/dL (60-115)
--- NOTE | 2020-12-01 12:59 | P.PNIM_ITS ---
Subjective Subjective Date of Service: 12/01/20 Interval History: Being followed for hypoxic respiratory failure in COVID-19 infection, this a.m. patient awake alert denies shortness of breath denies cough has been out of bed to chair remains on high-flow oxygen and 100% non-rebreather mask, no fevers, no chills no other acute issues overnight Review of Systems General no headache, no dizziness no fever chills.? CVS no chest pain, no palpitation.? Respiratory no cough , no shortness of breath? Gastrointestinal no nausea no vomiting, no abdominal pain Review of Systems: Yes all other systems are reviewed and are negative Physical Exam Vital Signs: Vital Signs: Last Vital Signs Temp 96.9 F 12/01/20 12:00 Pulse 52 12/01/20 12:00 Resp 20 12/01/20 12:00 BP 134/78 12/01/20 12:00 Pulse Ox 94 12/01/20 12:00 Body Mass Index 26.0 General patient re sting comfortably in no acute distre ss.? Neck supple n o JVD. CVS? regula r rate rhythm, Res piratory lungs jose elias ateral rhonchi, po or air entry, no r espiratory distres s, diminished danuta th sound Gastroint estinal abdomen so ft, nontender, bow el sounds audible, no guarding , no rigidity. Extremit ies no? edema. Frannie ro nonfocal , spee ch clear. Skin no rash Objective Data Active Medications Acetaminophen (Acetaminophen 325 Mg Tablet) 650 mg PO Q6H PRN PRN Reason: Pain, Mild (Pain Scale 1-3) Albuterol Sulfate (Albuterol Sulfate 90 Mcg 8 Gm Inhaler) 4 puff INHALE Q3H PRN PRN Reason: Shortness of Breath/Wheezing Amlodipine Besylate (Amlodipine Besylate 5 Mg Tablet) 5 mg PO DAILY [facility]; Protocol Last Admin: 12/01/20 08:14 Dose: 5 mg Documented by: SVETLANA Ascorbic Acid (Ascorbic Acid 500 Mg Tablet) 500 mg PO DAILY [facility] Last Admin: 12/01/20 08:13 Dose: 500 mg Documented by: SVETLANA Aspirin (Aspirin Enteric Coated 81 Mg Tablet.) 81 mg PO DAILY [facility] Last Admin: 12/01/20 08:13 Dose: 81 mg Documented by: HO.N-ASKEP Atenolol (Atenolol 50 Mg Tablet) 50 mg PO DAILY [facility]; Protocol Last Admin: 12/01/20 08:17 Dose: 50 mg Documented by: ONDINA-ASKEP Atorvastatin Calcium (Atorvastatin Calcium 10 Mg Tablet) 10 mg PO DAILY [facility] Last Admin: 12/01/20 08:14 Dose: 10 mg Documented by: N-ASKEP Dextrose (Dextrose 50 % 25 Gm/50 Ml Vial) 25 gm IVPUSH Q15M PRN; Protocol PRN Reason: per Hypoglycemia Standing Ord. Divalproex Sodium (Divalproex Sodium 500 Mg Tablet.Dr) 500 mg PO BID [facility] Last Admin: 12/01/20 08:16 Dose: Not Given Documented by: ONDINA-ASKEP Non-Admin Reason: Patient Refused Docusate Sodium (Docusate Sodium 100 Mg Capsule) 100 mg PO DAILY PRN PRN Reason: Constipation Escitalopram Oxalate (Escitalopram Oxalate 20 Mg Tablet) 20 mg PO DAILY [facility] Last Admin: 12/01/20 08:13 Dose: 20 mg Documented by: ONDINA-ASKEP Famotidine (Famotidine 20 Mg Tablet) 40 mg PO BID [facility] Last Admin: 12/01/20 08:15 Dose: 40 mg Documented by: ONDINA-ASKANGELITO Glucose (Glucose Gel 15 Gm Gel..Gram.) 15 gm PO Q15M PRN; Protocol PRN Reason: per Hypoglycemia Standing Ord. Guaifenesin/Dextromethorphan (Guaifenesin Dm 200/20/10 Ml 10 Ml Syrup) 10 ml PO Q6H PRN PRN Reason: cough Heparin Sodium (Porcine) (Heparin Sodium,Porcine 5,000 Unit/Ml Vial) 5,000 unit SUBCUT Q12H [facility] Last Admin: 12/01/20 08:16 Dose: 5,000 unit Documented by: ONDINA-ASKEP Insulin Human Lispro (Insulin Lispro 100 Unit/Ml 3 Ml Vial) 0 unit SUBCUT QIDACHS [facility]; Protocol Last Admin: 12/01/20 12:21 Dose: 12 unit Documented by: ONDINA-ASKEP Methylprednisolone Sodium Succinate (Methylprednisolone Sod Succ 40 Mg/Ml Vial) 20 mg IVPUSH Q12H [facility] Last Admin: 12/01/20 08:16 Dose: 20 mg Documented by: ONDINA-ASKEP Ondansetron HCl (Ondansetron Hcl 4 Mg/2 Ml Vial) 4 mg IVPUSH Q8H PRN PRN Reason: Nausea and Vomiting Pioglitazone HCl (Pioglitazone Hcl 15 Mg Tablet) 15 mg PO DAILY [facility] Last Admin: 12/01/20 08:15 Dose: 15 mg Documented by: ONDINA-ASKEP Sodium Chloride (0.9 % Sodium Chloride Flush 3 Ml Syringe) 3 ml IVFLUSH QSHIFT [facility] Last Admin: 12/01/20 08:17 Dose: 3 ml Documented by: ONDINA-ASKEP Vitamin D (Cholecalciferol (Vitamin D3) 25 Mcg Tablet) 50 mcg PO DAILY [facility] Last Admin: 12/01/20 08:15 Dose: 50 mcg Documented by: ONDINA-ASKEP Zinc Sulfate (Zinc Sulfate 220 Mg Capsule) 220 mg PO DAILY [facility] Last Admin: 12/01/20 08:13 Dose: 220 mg Documented by: ONDINA-ASKEP Labs CBC & Chem 7: 11/27/20 10:59 12/01/20 05:55 Labs: Laboratory Results - last 24 hr 11/30/20 11/30/20 12/01/20 16:15 19:32 05:55 Anion Gap 14 Estim Creat Clear Calc 62.3 Estimated GFR 48 POC Glucose 321 H 349 H Random Glucose 211 H Calcium 8.7 12/01/20 12/01/20 07:39 11:50 Anion Gap Estim Creat Clear Calc Estimated GFR POC Glucose 189 H 389 H* Random Glucose Calcium Assessment and Plan (1) Acute on chronic respiratory failure with hypoxia: Status: Acute (2) COVID-19 virus infection: Status: Acute (3) Hypertension: Status: Acute Assessment and Plan: 50-year-old female unvaccinated presents to the hospital with complaints of shortness of breath found to have COVID-19 pneumonia with viral sepsis # Acute hypoxic respiratory failure d/t covid 19 ?? Patient appears comfortable denies shortness of breath, denies cough, no fever chills no other overnight acute issues Will continue high-flow oxygen, 100% non-rebreather discontinued patient oxygenation dropped to [address] on Venti mask and follow closely Patient seems motivated, recommend Phys frequent position change out of bed to chair and encouraged to use incentive spirometery ?? completed 10 days of Dexamethasone,? completed 5 days of? remdesivir, continue Pepcid 40 b.i.d. , continue vitamin C and zinc, continue cough medication, and low-dose IV steroid ?? CRP 7.53 down from 13.08, follow labs ?? Will gradually wean oxygen as tolerated # Hypertension--continue Norvasc and atenolol, BP stable, hold Losartan d/t PEREZ #PEREZ--now resolved of was likely pre renal , avoid nephrotoxins recheck BMP at a.m. # hyperkalemia will give Kayexalate and follow labs, renal function stable, losartan on hold #Diabetes--BS elevated likely due to steroid,continue Actos, and adjusted SSI # Anxiety and depression continue home medications # Hyperlipidemia ? continue statin (lipitor) DVT prophylaxis Heparin subQ Quality Stroke Does the patient have a stroke diagnosis?: No VTE Prior VTE?: No VTE Risk Level:: Medical - moderate - high VTE Device Contraindication: Treatment Not Indicated VTE Drug Contraindication: N/A - Med Ordered
[2020-12-01] MEDS: Sodium Polystyrene Sulfon/Sorb 15 GM/60 ML ORAL.SUSP PO (13:39)
[2020-12-01 15:57] LABS: Glucose, Whole Blood 290 mg/dL (60-115)
[2020-12-01 20:06] LABS: Glucose, Whole Blood 271 mg/dL (60-115)
[2020-12-02] VITALS (14 sets, daily range): BP systolic 111–139; BP diastolic 57–80; PULSE 57–79; RESP 18–22; TEMP 36.1–36.7; O2SAT 89–96
[2020-12-02 06:52] LABS: Anion Gap 14 (12-20); Blood Urea Nitrogen 52 mg/dL (9-16); Calcium 9.2 mg/dL (8.4-10.2); Carbon Dioxide 25 mmol/L (22-29); Chloride 103 mmol/L (96-108); Creatinine Clr Calc Pharmacy 54.8; Estimated Glomerular Filt Rate 42; Glucose Random 206 mg/dL (60-115); Potassium 5.5 mmol/L (3.3-5.1); Sodium 136 mmol/L (135-145)
[2020-12-02 07:20] LABS: Glucose, Whole Blood 183 mg/dL (60-115)
[2020-12-02] MEDS: atenoloL 50 MG TABLET PO (08:35)
[2020-12-02] MEDS: Famotidine 20 MG TABLET 40 MG PO ×2 (08:35→20:19)
[2020-12-02] MEDS: Aspirin Enteric Coated 81 MG TABLET.DR PO (08:35)
[2020-12-02] MEDS: Cholecalciferol (Vitamin D3) 25 MCG TABLET 50 MCG PO (08:35)
[2020-12-02] MEDS: Zinc Sulfate 220 MG CAPSULE PO (08:36)
[2020-12-02] MEDS: Atorvastatin Calcium 10 MG TABLET PO (08:36)
[2020-12-02] MEDS: Ascorbic Acid 500 MG TABLET PO (08:36)
[2020-12-02] MEDS: amLODIPine Besylate 5 MG TABLET PO (08:36)
[2020-12-02] MEDS: Heparin Sodium,Porcine 5,000 UNIT/ML VIAL 5000 UNIT SUBCUT ×2 (08:36→20:19)
[2020-12-02] MEDS: methylPREDNISolone Sod Succ 40 MG/ML VIAL 20 MG IVPUSH ×2 (08:36→20:19)
[2020-12-02] MEDS: Escitalopram Oxalate 20 MG TABLET PO (08:36)
[2020-12-02] MEDS: Insulin Lispro 100 UNIT/ML 3 ML VIAL SUBCUT ×4 (08:37→20:19)
[2020-12-02] MEDS: 0.9 % Sodium Chloride Flush 3 ML SYRINGE IVFLUSH ×3 (08:44→20:20)
[2020-12-02 11:15] LABS: Glucose, Whole Blood 364 mg/dL (60-115)
--- NOTE | 2020-12-02 12:03 | MHC.CM.PN ---
Per ROUNDS discussion, Patient is not yet medically cleared for dc (IV Solu Medrol, High Flow Venturi mask). Home is the goal for dc and CM will follow for possible need to adjust the dc plan.
--- NOTE | 2020-12-02 15:29 | HO.PM.IMPN ---
Subjective Subjective Date of Service: 12/02/20 Interval History: Being followed for hypoxic respiratory failure and COVID-19, denies acute symptoms of chest pain, no palpitation no shortness of breath, no issues overnight remains on high-flow oxygen and Venti mask Review of Systems General no headache, no dizziness no fever chills.? CVS no chest pain, no palpitation.? Respiratory no cough , no shortness of breath? Gastrointestinal no nausea no vomiting, no abdominal pain Physical Exam Vital Signs: Vital Signs: Last Vital Signs Temp 98.0 F 12/02/20 15:12 Pulse 60 12/02/20 15:12 Resp 20 12/02/20 15:12 BP 130/75 12/02/20 15:12 Pulse Ox 90 L 12/02/20 15:12 Body Mass Index 26.0 General patient resting comfortablyin no acute distress.? Neck supple no JVD. CVS? regular rate rhythm, Respiratory lungs bilateral rhonchi, poor air entry, no respiratory distress, diminished breath sound Gastrointestinal abdomen soft, nontender, bowel sounds audible,?no guarding , norigidity. Extremities no? edema. Neuro nonfocal , speech clear. Skin no rash Objective Data Active Medications Acetaminophen (Acetaminophen 325 Mg Tablet) 650 mg PO Q6H PRN PRN Reason: Pain, Mild (Pain Scale 1-3) Albuterol Sulfate (Albuterol Sulfate 90 Mcg 8 Gm Inhaler) 4 puff INHALE Q3H PRN PRN Reason: Shortness of Breath/Wheezing Amlodipine Besylate (Amlodipine Besylate 5 Mg Tablet) 5 mg PO DAILY [facility]; Protocol Last Admin: 12/02/20 08:36 Dose: 5 mg Documented by: SETH Ascorbic Acid (Ascorbic Acid 500 Mg Tablet) 500 mg PO DAILY [facility] Last Admin: 12/02/20 08:36 Dose: 500 mg Documented by: SETH Aspirin (Aspirin Enteric Coated 81 Mg Tablet.) 81 mg PO DAILY [facility] Last Admin: 12/02/20 08:35 Dose: 81 mg Documented by: SETH Atenolol (Atenolol 50 Mg Tablet) 50 mg PO DAILY [facility]; Protocol Last Admin: 12/02/20 08:35 Dose: 50 mg Documented by: SETH Atorvastatin Calcium (Atorvastatin Calcium 10 Mg Tablet) 10 mg PO DAILY [facility] Last Admin: 12/02/20 08:36 Dose: 10 mg Documented by: SETH Dextrose (Dextrose 50 % 25 Gm/50 Ml Vial) 25 gm IVPUSH Q15M PRN; Protocol PRN Reason: per Hypoglycemia Standing Ord. Divalproex Sodium (Divalproex Sodium 500 Mg Tablet.Dr) 500 mg PO BID [facility] Last Admin: 12/02/20 08:45 Dose: Not Given Documented by: SETH Non-Admin Reason: Patient Refused Docusate Sodium (Docusate Sodium 100 Mg Capsule) 100 mg PO DAILY PRN PRN Reason: Constipation Escitalopram Oxalate (Escitalopram Oxalate 20 Mg Tablet) 20 mg PO DAILY [facility] Last Admin: 12/02/20 08:36 Dose: 20 mg Documented by: SETH Famotidine (Famotidine 20 Mg Tablet) 40 mg PO BID [facility] Last Admin: 12/02/20 08:35 Dose: 40 mg Documented by: SETH Glucose (Glucose Gel 15 Gm Gel..Gram.) 15 gm PO Q15M PRN; Protocol PRN Reason: per Hypoglycemia Standing Ord. Guaifenesin/Dextromethorphan (Guaifenesin Dm 200/20/10 Ml 10 Ml Syrup) 10 ml PO Q6H PRN PRN Reason: cough Heparin Sodium (Porcine) (Heparin Sodium,Porcine 5,000 Unit/Ml Vial) 5,000 unit SUBCUT Q12H [facility] Last Admin: 12/02/20 08:36 Dose: 5,000 unit Documented by: SETH Insulin Human Lispro (Insulin Lispro 100 Unit/Ml 3 Ml Vial) 0 unit SUBCUT QIDACHS [facility]; Protocol Last Admin: 12/02/20 12:17 Dose: 12 unit Documented by: ESTH Methylprednisolone Sodium Succinate (Methylprednisolone Sod Succ 40 Mg/Ml Vial) 20 mg IVPUSH Q12H [facility] Last Admin: 12/02/20 08:36 Dose: 20 mg Documented by: SETH Ondansetron HCl (Ondansetron Hcl 4 Mg/2 Ml Vial) 4 mg IVPUSH Q8H PRN PRN Reason: Nausea and Vomiting Pioglitazone HCl (Pioglitazone Hcl 15 Mg Tablet) 15 mg PO DAILY [facility] Last Admin: 12/02/20 08:36 Dose: 15 mg Documented by: SETH Sodium Chloride (0.9 % Sodium Chloride Flush 3 Ml Syringe) 3 ml IVFLUSH QSHIFT [facility] Last Admin: 12/02/20 08:44 Dose: 3 ml Documented by: SETH Vitamin D (Cholecalciferol (Vitamin D3) 25 Mcg Tablet) 50 mcg PO DAILY [facility] Last Admin: 12/02/20 08:35 Dose: 50 mcg Documented by: SETH Zinc Sulfate (Zinc Sulfate 220 Mg Capsule) 220 mg PO DAILY [facility] Last Admin: 12/02/20 08:36 Dose: 220 mg Documented by: SETH Labs CBC & Chem 7: 11/27/20 10:59 12/02/20 06:19 Labs: Laboratory Results - last 24 hr 12/01/20 12/01/20 12/02/20 15:51 20:00 06:19 Anion Gap 14 Estim Creat Clear Calc 54.8 Estimated GFR 42 POC Glucose 290 H 271 H Random Glucose 206 H Calcium 9.2 12/02/20 12/02/20 07:13 11:07 Anion Gap Estim Creat Clear Calc Estimated GFR POC Glucose 183 H 364 H* Random Glucose Calcium Assessment and Plan (1) Lactic acidosis: Status: Acute (2) Acute on chronic respiratory failure with hypoxia: Status: Acute (3) Pneumonia due to 2019-nCoV: Status: Acute (4) Hypertension: Status: Acute (5) Type 2 diabetes mellitus with hyperglycemia: Status: Acute Assessment and Plan: 50-year-old female unvaccinated presents to the hospital with complaints of shortness of breath found to have COVID-19 pneumonia with viral sepsis # Acute hypoxic respiratory failure d/t covid 19 ?? Patient appears comfortable denies shortness of breath, denies cough, no fever chills no other overnight acute issues ?? Will continue high-flow oxygen, 100% , placed on Venti mask, oxygenation around 90 ? ?? Patient seems motivated, recommend frequent position change, out of bed to chair and encouraged to use incentive spirometery ?? completed 10 days of Dexamethasone,? completed 5 days of? remdesivir, continue Pepcid 40 b.i.d. , continue vitamin C and zinc, continue cough medication, and low-dose IV steroid ?? CRP 7.53 down from 13.08, follow labs ?? Will gradually wean oxygen as tolerated # Hypertension--continue Norvasc and atenolol, BP stable, hold Losartan d/t PEREZ #PEREZ--now resolved of was likely pre renal , avoid nephrotoxins recheck BMP at a.m. # hyperkalemia persistent hyperkalemia likely due to hyperglycemia, treat blood sugars, give Kayexalate and follow labs, renal function stable, losartan on hold #Diabetes--BS elevated likely due to steroid,continue Actos, and will further adjust insulin sliding scale # Anxiety and depression continue home medications # Hyperlipidemia ? continue statin (lipitor) DVT prophylaxis Heparin subQ Quality Stroke Does the patient have a stroke diagnosis?: No VTE Prior VTE?: No VTE Risk Level:: Medical - moderate - high VTE Device Contraindication: Treatment Not Indicated VTE Drug Contraindication: N/A - Med Ordered
[2020-12-02 16:06] LABS: Glucose, Whole Blood 444 mg/dL (60-115)
[2020-12-02] MEDS: Sodium Polystyrene Sulfon/Sorb 15 GM/60 ML ORAL.SUSP 30 GM PO (16:50)
[2020-12-02 19:55] LABS: Glucose, Whole Blood 392 mg/dL (60-115)
[2020-12-03] VITALS (15 sets, daily range): BP systolic 116–136; BP diastolic 65–78; PULSE 57–91; RESP 18–22; TEMP 35.9–37; O2SAT 92–98
[2020-12-03 07:47] LABS: Glucose, Whole Blood 197 mg/dL (60-115)
[2020-12-03] MEDS: methylPREDNISolone Sod Succ 40 MG/ML VIAL 20 MG IVPUSH (08:07)
[2020-12-03] MEDS: Zinc Sulfate 220 MG CAPSULE PO (08:07)
[2020-12-03] MEDS: Cholecalciferol (Vitamin D3) 25 MCG TABLET 50 MCG PO (08:07)
[2020-12-03] MEDS: amLODIPine Besylate 5 MG TABLET PO (08:08)
[2020-12-03] MEDS: Ascorbic Acid 500 MG TABLET PO (08:08)
[2020-12-03] MEDS: Famotidine 20 MG TABLET 40 MG PO ×2 (08:08→20:42)
[2020-12-03] MEDS: Aspirin Enteric Coated 81 MG TABLET.DR PO (08:08)
[2020-12-03] MEDS: Escitalopram Oxalate 20 MG TABLET PO (08:08)
[2020-12-03] MEDS: Atorvastatin Calcium 10 MG TABLET PO (08:08)
[2020-12-03] MEDS: Heparin Sodium,Porcine 5,000 UNIT/ML VIAL 5000 UNIT SUBCUT ×2 (08:08→20:42)
[2020-12-03] MEDS: 0.9 % Sodium Chloride Flush 3 ML SYRINGE IVFLUSH ×3 (08:09→20:43)
[2020-12-03] MEDS: Insulin Lispro 100 UNIT/ML 3 ML VIAL SUBCUT ×4 (08:09→20:43)
[2020-12-03] MEDS: atenoloL 50 MG TABLET PO (08:23)
[2020-12-03 09:37] LABS: Anion Gap 16 (12-20); Blood Urea Nitrogen 42 mg/dL (9-16); Calcium 8.9 mg/dL (8.4-10.2); Carbon Dioxide 26 mmol/L (22-29); Chloride 99 mmol/L (96-108); Creatinine Clr Calc Pharmacy 67.4; Estimated Glomerular Filt Rate 53; Glucose Random 189 mg/dL (60-115); Potassium 4.7 mmol/L (3.3-5.1); Sodium 136 mmol/L (135-145)
[2020-12-03 11:41] LABS: Glucose, Whole Blood 266 mg/dL (60-115)
--- NOTE | 2020-12-03 14:29 | HO.PM.IMPN ---
Subjective Subjective Date of Service: 12/03/20 Interval History: Being followed for hypoxic respiratory failure and COVID-19, denies acute symptoms of chest pain, no palpitation, no shortness of breath, noted to have drop in oxygen overnight therefore placed back on non-rebreather and continued on high-flow Review of Systems General no headache, no dizziness no fever chills.? CVS no chest pain, no palpitation.? Respiratory no cough , no shortness of breath? Gastrointestinal no nausea, no vomiting, no abdominal pain Physical Exam Vital Signs: Vital Signs: Last Vital Signs Temp 97.0 F 12/03/20 12:00 Pulse 62 12/03/20 12:00 Resp 22 H 12/03/20 12:00 BP 126/74 12/03/20 12:00 Pulse Ox 93 12/03/20 12:00 Body Mass Index 26.0 General alert oriented x3 talking in full sentences, resting comfortably no acute distress.? Neck supple no JVD. CVS? regular rate rhythm, Respiratory lungs poor air entry, no respiratory distress, diminished breath sound, no wheeze or rhonchi appreciated Gastrointestinal abdomen soft, nontender, bowel sounds audible,?no guarding , norigidity. Extremities no? edema. Neuro nonfocal , speech clear. Skin no rash Objective Data Active Medications Acetaminophen (Acetaminophen 325 Mg Tablet) 650 mg PO Q6H PRN PRN Reason: Pain, Mild (Pain Scale 1-3) Albuterol Sulfate (Albuterol Sulfate 90 Mcg 8 Gm Inhaler) 4 puff INHALE Q3H PRN PRN Reason: Shortness of Breath/Wheezing Amlodipine Besylate (Amlodipine Besylate 5 Mg Tablet) 5 mg PO DAILY [facility]; Protocol Last Admin: 12/03/20 08:08 Dose: 5 mg Documented by: FARIDA Ascorbic Acid (Ascorbic Acid 500 Mg Tablet) 500 mg PO DAILY [facility] Last Admin: 12/03/20 08:08 Dose: 500 mg Documented by: FARIDA Aspirin (Aspirin Enteric Coated 81 Mg Tablet.) 81 mg PO DAILY [facility] Last Admin: 12/03/20 08:08 Dose: 81 mg Documented by: FARIDA Atenolol (Atenolol 50 Mg Tablet) 50 mg PO DAILY [facility]; Protocol Last Admin: 12/03/20 08:23 Dose: 50 mg Documented by: FARIDA Atorvastatin Calcium (Atorvastatin Calcium 10 Mg Tablet) 10 mg PO DAILY [facility] Last Admin: 12/03/20 08:08 Dose: 10 mg Documented by: FARIDA Dextrose (Dextrose 50 % 25 Gm/50 Ml Vial) 25 gm IVPUSH Q15M PRN; Protocol PRN Reason: per Hypoglycemia Standing Ord. Divalproex Sodium (Divalproex Sodium 500 Mg Tablet.Dr) 500 mg PO BID [facility] Last Admin: 12/03/20 08:20 Dose: Not Given Documented by: FARIDA Non-Admin Reason: Patient Refused Docusate Sodium (Docusate Sodium 100 Mg Capsule) 100 mg PO DAILY PRN PRN Reason: Constipation Escitalopram Oxalate (Escitalopram Oxalate 20 Mg Tablet) 20 mg PO DAILY [facility] Last Admin: 12/03/20 08:08 Dose: 20 mg Documented by: FARIDA Famotidine (Famotidine 20 Mg Tablet) 40 mg PO BID [facility] Last Admin: 12/03/20 08:08 Dose: 40 mg Documented by: FARIDA Glucose (Glucose Gel 15 Gm Gel..Gram.) 15 gm PO Q15M PRN; Protocol PRN Reason: per Hypoglycemia Standing Ord. Guaifenesin/Dextromethorphan (Guaifenesin Dm 200/20/10 Ml 10 Ml Syrup) 10 ml PO Q6H PRN PRN Reason: cough Heparin Sodium (Porcine) (Heparin Sodium,Porcine 5,000 Unit/Ml Vial) 5,000 unit SUBCUT Q12H [facility] Last Admin: 12/03/20 08:08 Dose: 5,000 unit Documented by: FARIDA Insulin Human Lispro (Insulin Lispro 100 Unit/Ml 3 Ml Vial) 0 unit SUBCUT QIDACHS [facility]; Protocol Last Admin: 12/03/20 12:02 Dose: 10 unit Documented by: FARIDA Methylprednisolone Sodium Succinate (Methylprednisolone Sod Succ 40 Mg/Ml Vial) 20 mg IVPUSH Q12H [facility] Last Admin: 12/03/20 08:07 Dose: 20 mg Documented by: FARIDA Ondansetron HCl (Ondansetron Hcl 4 Mg/2 Ml Vial) 4 mg IVPUSH Q8H PRN PRN Reason: Nausea and Vomiting Pioglitazone HCl (Pioglitazone Hcl 15 Mg Tablet) 15 mg PO DAILY [facility] Last Admin: 12/03/20 08:07 Dose: 15 mg Documented by: FARIDA Sodium Chloride (0.9 % Sodium Chloride Flush 3 Ml Syringe) 3 ml IVFLUSH QSHIFT [facility] Last Admin: 12/03/20 08:09 Dose: 3 ml Documented by: FARIDA Vitamin D (Cholecalciferol (Vitamin D3) 25 Mcg Tablet) 50 mcg PO DAILY [facility] Last Admin: 12/03/20 08:07 Dose: 50 mcg Documented by: FARIDA Zinc Sulfate (Zinc Sulfate 220 Mg Capsule) 220 mg PO DAILY [facility] Last Admin: 12/03/20 08:07 Dose: 220 mg Documented by: FARIDA Labs CBC & Chem 7: 11/27/20 10:59 12/03/20 07:53 Labs: Laboratory Results - last 24 hr 12/02/20 12/02/20 12/03/20 15:57 19:47 07:28 Anion Gap Estim Creat Clear Calc Estimated GFR POC Glucose 444 H* 392 H* 197 H Random Glucose Calcium 12/03/20 12/03/20 07:53 11:26 Anion Gap 16 Estim Creat Clear Calc 67.4 Estimated GFR 53 POC Glucose 266 H Random Glucose 189 H Calcium 8.9 Assessment and Plan (1) Acute on chronic respiratory failure with hypoxia: Status: Acute (2) Pneumonia due to 2019-nCoV: Status: Acute (3) Hyperkalemia: Status: Acute (4) Hypertension: Status: Acute (5) Type 2 diabetes mellitus with hyperglycemia: Status: Acute Assessment and Plan: 50-year-old female unvaccinated presents to the hospital with complaints of shortness of breath found to have COVID-19 pneumonia with viral sepsis # Acute hypoxic respiratory failure d/t covid 19 ?? Noted to have drop in oxygenation overnight, patient denies shortness of breath, denies cough, no fever chills no other overnight acute issues ?? continue high-flow oxygen, wean non-rebreather mask and placed on Venti mask, keep oxygen oxygenation > 90 ? ?? following frequent position change, out of bed to chair and using incentive spirometery ?? completed 10 days of Dexamethasone,? completed 5 days of? remdesivir, continue Pepcid 40 b.i.d. , continue vitamin C, and zinc, continue cough medication, and increased dose of IV steroid ?? CRP 7.53 down from 13.08, LDH 867 ,follow labs ?? gradually wean oxygen as tolerated # Hypertension--continue Norvasc and atenolol, BP stable, hold Losartan d/t PEREZ #PEREZ--now resolved of was likely pre renal , avoid nephrotoxins recheck BMP at a.m. # hyperkalemia? resolved was likely due to hyperglycemia, status post Kayexalate, continue to hold losartan #Diabetes--BS elevated likely due to steroid,continue Actos, and insulin sliding scale, will add low-dose Lantus # Anxiety and depression continue home medications # Hyperlipidemia ? continue lipitor DVT prophylaxis Heparin subQ Quality Stroke Does the patient have a stroke diagnosis?: No VTE Prior VTE?: No VTE Risk Level:: Medical - moderate - high VTE Device Contraindication: Treatment Not Indicated VTE Drug Contraindication: N/A - Med Ordered
[2020-12-03 16:05] LABS: Glucose, Whole Blood 330 mg/dL (60-115)
[2020-12-03] MEDS: methylPREDNISolone Sod Succ 40 MG/ML VIAL IVPUSH (16:38)
[2020-12-03 20:34] LABS: Glucose, Whole Blood 368 mg/dL (60-115)
[2020-12-03] MEDS: Insulin Glargine,Hum.rec.anlog 100 UNIT/ML 10 ML VIAL 10 UNIT SUBCUT (20:43)
[2020-12-04] VITALS (16 sets, daily range): BP systolic 117–141; BP diastolic 57–85; PULSE 55–73; RESP 18–22; TEMP 36.1–37; O2SAT 83–98
[2020-12-04] MEDS: methylPREDNISolone Sod Succ 40 MG/ML VIAL IVPUSH (05:36)
[2020-12-04 07:29] LABS: Glucose, Whole Blood 254 mg/dL (60-115)
[2020-12-04] MEDS: Insulin Lispro 100 UNIT/ML 3 ML VIAL SUBCUT ×4 (08:33→20:50)
[2020-12-04] MEDS: Famotidine 20 MG TABLET 40 MG PO ×2 (08:33→20:50)
[2020-12-04] MEDS: atenoloL 50 MG TABLET PO (08:35)
[2020-12-04] MEDS: Cholecalciferol (Vitamin D3) 25 MCG TABLET 50 MCG PO (08:35)
[2020-12-04] MEDS: Atorvastatin Calcium 10 MG TABLET PO (08:36)
[2020-12-04] MEDS: Escitalopram Oxalate 20 MG TABLET PO (08:36)
[2020-12-04] MEDS: amLODIPine Besylate 5 MG TABLET PO (08:36)
[2020-12-04] MEDS: Ascorbic Acid 500 MG TABLET PO (08:36)
[2020-12-04] MEDS: Zinc Sulfate 220 MG CAPSULE PO (08:36)
[2020-12-04] MEDS: Aspirin Enteric Coated 81 MG TABLET.DR PO (08:36)
[2020-12-04] MEDS: Heparin Sodium,Porcine 5,000 UNIT/ML VIAL 5000 UNIT SUBCUT ×2 (08:37→20:49)
[2020-12-04] MEDS: 0.9 % Sodium Chloride Flush 3 ML SYRINGE IVFLUSH ×3 (08:37→20:51)
[2020-12-04 11:15] LABS: Glucose, Whole Blood 327 mg/dL (60-115)
--- NOTE | 2020-12-04 12:59 | P.PNIM_ITS ---
Subjective Subjective Date of Service: 12/04/20 Interval History: Being followed for hypoxic respiratory failure and COVID-19, persistent hypoxia overnight, oxygenation 90 91% on 100% non-rebreather and high-flow, denies acute symptoms of chest pain, no palpitation, no shortness of breath. No acute overnight issues. Review of Systems General no headache, no dizziness no fever chills.? CVS no chest pain, no palpitation.? Respiratory no cough , no shortness of breath? Gastrointestinal no nausea, no vomiting, no abdominal pain Physical Exam Vital Signs: Vital Signs: Last Vital Signs Temp 97.7 F 12/04/20 08:00 Pulse 60 12/04/20 11:28 Resp 22 H 12/04/20 11:28 BP 122/84 12/04/20 11:28 Pulse Ox 93 12/04/20 11:28 Body Mass Index 26.0 General alert oriented x3 talking in full sentences, resting comfortably no acute distress.? Neck supple no JVD. CVS? regular rate rhythm, Respiratory lungs no respiratory distress, diminished breath sound, rhonchi, shallow breathing. Gastrointestinal abdomen soft, nontender, bowel sounds audible,?no guarding , norigidity. Extremities no? edema. Neuro nonfocal , speech clear. Skin no rash Objective Data Active Medications Acetaminophen (Acetaminophen 325 Mg Tablet) 650 mg PO Q6H PRN PRN Reason: Pain, Mild (Pain Scale 1-3) Albuterol Sulfate (Albuterol Sulfate 90 Mcg 8 Gm Inhaler) 4 puff INHALE Q3H PRN PRN Reason: Shortness of Breath/Wheezing Amlodipine Besylate (Amlodipine Besylate 5 Mg Tablet) 5 mg PO DAILY [facility]; Pro tocol Last Admin: 12/04/20 08:36 Dose: 5 mg Documented by: ANISHA Ascorbic Acid (Ascorbic Acid 500 Mg Tablet) 500 mg PO DAILY [facility] Last Admin: 12/04/20 08:36 Dose: 500 mg Documented by: ANISHA Aspirin (Aspirin Enteric Coated 81 Mg Tablet.) 81 mg PO DAILY [facility] Last Admin: 12/04/20 08:36 Dose: 81 mg Documented by: ANISHA Atenolol (Atenolol 50 Mg Tablet) 50 mg PO DAILY [facility]; Protocol Last Admin: 12/04/20 08:35 Dose: 50 mg Documented by: ANISHA Atorvastatin Calcium (Atorvastatin Calcium 10 Mg Tablet) 10 mg PO DAILY [facility] Last Admin: 12/04/20 08:36 Dose: 10 mg Documented by: ANISHA Dextrose (Dextrose 50 % 25 Gm/50 Ml Vial) 25 gm IVPUSH Q15M PRN; Protocol PRN Reason: per Hypoglycemia Standing Ord. Divalproex Sodium (Divalproex Sodium 500 Mg Tablet.Dr) 500 mg PO BID [facility] Last Admin: 12/04/20 08:49 Dose: Not Given Documented by: ANISHA Non-Admin Reason: Patient Refused Docusate Sodium (Docusate Sodium 100 Mg Capsule) 100 mg PO DAILY PRN PRN Reason: Constipation Escitalopram Oxalate (Escitalopram Oxalate 20 Mg Tablet) 20 mg PO DAILY [facility] Last Admin: 12/04/20 08:36 Dose: 20 mg Documented by: ANISHA Famotidine (Famotidine 20 Mg Tablet) 40 mg PO BID [facility] Last Admin: 12/04/20 08:33 Dose: 40 mg Documented by: ANISHA Glucose (Glucose Gel 15 Gm Gel..Gram.) 15 gm PO Q15M PRN; Protocol PRN Reason: per Hypoglycemia Standing Ord. Guaifenesin/Dextromethorphan (Guaifenesin Dm 200/20/10 Ml 10 Ml Syrup) 10 ml PO Q6H PRN PRN Reason: cough Heparin Sodium (Porcine) (Heparin Sodium,Porcine 5,000 Unit/Ml Vial) 5,000 unit SUBCUT Q12H [facility] Last Admin: 12/04/20 08:37 Dose: 5,000 unit Documented by: ANISHA Insulin Glargine (Insulin Glargine,Hum.Rec.Anlog 100 Unit/Ml 10 Ml Vial) 10 unit SUBCUT BEDTIME [facility] Last Admin: 12/03/20 20:43 Dose: 10 unit Documented by: QUIANA Insulin Human Lispro (Insulin Lispro 100 Unit/Ml 3 Ml Vial) 0 unit SUBCUT QIDACHS [facility]; Protocol Last Admin: 12/04/20 12:10 Dose: 12 unit Documented by: ANISHA Methylprednisolone Sodium Succinate (Methylprednisolone Sod Succ 40 Mg/Ml Vial) 40 mg IVPUSH Q12H [facility] Last Admin: 12/04/20 05:36 Dose: 40 mg Documented by: [email or web address] Ondansetron HCl (Ondansetron Hcl 4 Mg/2 Ml Vial) 4 mg IVPUSH Q8H PRN PRN Reason: Nausea and Vomiting Pioglitazone HCl (Pioglitazone Hcl 15 Mg Tablet) 15 mg PO DAILY [facility] Last Admin: 12/04/20 08:36 Dose: 15 mg Documented by: ANISHA Sodium Chloride (0.9 % Sodium Chloride Flush 3 Ml Syringe) 3 ml IVFLUSH QSHIFT [facility] Last Admin: 12/04/20 08:37 Dose: 3 ml Documented by: ANISHA Vitamin D (Cholecalciferol (Vitamin D3) 25 Mcg Tablet) 50 mcg PO DAILY [facility] Last Admin: 12/04/20 08:35 Dose: 50 mcg Documented by: ANISHA Zinc Sulfate (Zinc Sulfate 220 Mg Capsule) 220 mg PO DAILY [facility] Last Admin: 12/04/20 08:36 Dose: 220 mg Documented by: ANISHA Labs CBC & Chem 7: 11/27/20 10:59 12/03/20 07:53 Labs: Laboratory Results - last 24 hr 12/03/20 12/03/20 12/04/20 15:56 20:27 07:16 POC Glucose 330 H 368 H* 254 H 12/04/20 11:04 POC Glucose 327 H Assessment and Plan (1) Hyperkalemia: Status: Acute (2) Acute on chronic respiratory failure with hypoxia: Status: Acute (3) Pneumonia due to 2019-nCoV: Status: Acute (4) Hypertension: Status: Acute (5) Type 2 diabetes mellitus with hyperglycemia: Status: Acute Assessment and Plan: 50-year-old female unvaccinated presents to the hospital with complaints of shortness of breath found to have COVID-19 pneumonia with viral sepsis # Acute hypoxic respiratory failure d/t covid 19 ?? denies shortness of breath, denies cough, no fever chills no other overnight acute issues, oxygenation remains borderline 19 91%,on high-flow oxygen, and non-rebreather mask ?? following frequent position change, out of bed to chair and using incentive spirometery ?? completed 10 days of Dexamethasone,? completed 5 days of? remdesivir, co ntinue Pepcid 40 b.i.d. , continue vitamin C, and zinc, continue cough medication, and will increase dose of IV steroid to 80 b.i.d. ?? CRP 7.53 down from 13.08, LDH 867 ,follow labs ?? gradually wean oxygen as tolerated # Hypertension--continue Norvasc and atenolol, BP stable, hold Losartan d/t PEREZ #PEREZ--now resolved of was likely pre renal , avoid nephrotoxins # hyperkalemia? resolved was likely due to hyperglycemia, status post Kayexalate, continue to hold losartan #Diabetes--BS elevated likely due to steroid,continue Actos, and insulin sliding scale, added Lantus will increase dose to 20 units at home takes metformin and Actos # Anxiety and depression continue home medications # Hyperlipidemia ? continue lipitor DVT prophylaxis Heparin subQ Quality Stroke Does the patient have a stroke diagnosis?: No VTE Prior VTE?: No VTE Risk Level:: Medical - moderate - high VTE Device Contraindication: Treatment Not Indicated VTE Drug Contraindication: N/A - Med Ordered
[2020-12-04] MEDS: methylPREDNISolone Sod Succ 40 MG/ML VIAL 80 MG IVPUSH (14:31)
[2020-12-04 16:11] LABS: Glucose, Whole Blood 278 mg/dL (60-115)
[2020-12-04 20:19] LABS: Glucose, Whole Blood 359 mg/dL (60-115)
[2020-12-04] MEDS: Insulin Glargine,Hum.rec.anlog 100 UNIT/ML 10 ML VIAL 20 UNIT SUBCUT (20:50)
[2020-12-05] VITALS (13 sets, daily range): BP systolic 123–133; BP diastolic 58–88; PULSE 56–80; RESP 18–22; TEMP 36.4–36.9; O2SAT 79–97
[2020-12-05] MEDS: methylPREDNISolone Sod Succ 40 MG/ML VIAL 80 MG IVPUSH (02:29)
[2020-12-05 06:51] LABS: C Reactive Protein 0.16 mg/dL (< or = 0.50); Lactate Dehydrogenase 492 U/L (122-220)
[2020-12-05 07:14] LABS: Glucose, Whole Blood 178 mg/dL (60-115)
[2020-12-05] MEDS: Insulin Lispro 100 UNIT/ML 3 ML VIAL SUBCUT ×4 (08:19→20:32)
[2020-12-05] MEDS: Heparin Sodium,Porcine 5,000 UNIT/ML VIAL 5000 UNIT SUBCUT ×2 (08:19→20:31)
[2020-12-05] MEDS: 0.9 % Sodium Chloride Flush 3 ML SYRINGE IVFLUSH ×3 (08:20→20:32)
[2020-12-05] MEDS: amLODIPine Besylate 5 MG TABLET PO (08:20)
[2020-12-05] MEDS: atenoloL 50 MG TABLET PO (08:21)
[2020-12-05] MEDS: Ascorbic Acid 500 MG TABLET PO (08:21)
[2020-12-05] MEDS: Famotidine 20 MG TABLET 40 MG PO ×2 (08:21→20:31)
[2020-12-05] MEDS: Zinc Sulfate 220 MG CAPSULE PO (08:22)
[2020-12-05] MEDS: Cholecalciferol (Vitamin D3) 25 MCG TABLET 50 MCG PO (08:22)
[2020-12-05] MEDS: Aspirin Enteric Coated 81 MG TABLET.DR PO (08:22)
[2020-12-05] MEDS: Atorvastatin Calcium 10 MG TABLET PO (08:23)
[2020-12-05 10:58] LABS: Glucose, Whole Blood 286 mg/dL (60-115)
--- NOTE | 2020-12-05 12:30 | MHC.CM.PN ---
Per ROUNDS discussion, Patient is not yet medically cleared for dc (IV Solu Medrol, High Flow O2). Home is the goal for dc and CM will follow for possible need to adjust the dc plan.
--- NOTE | 2020-12-05 12:36 | PM.CNPUL ---
History of Present Illness History of Present Illness Consult date: 12/05/20 Requesting physician: Yudelka Obregon Chief complaint: Covid 19 PNA Narrative: 50-year-old lady with underlying history of obesity, hypertension, diabetes mellitus, psoriasis COVID positive on 11/12/2020, admitted on 11/18/2020 with dyspnea and hypoxia. Patient has been treated with dexamethasone and remdesivir with improvement in symptoms, however she still remains significantly hypoxic, though improving slowly. Review of Systems Constitutional: Constitutional: Denies daytime sleepiness, Denies excessive sweating, Denies fatigue, Denies fever(s), Denies lethargy, Denies malaise, Denies night sweats, Denies snoring and Denies weight loss Eyes: Eyes: Denies blurry vision and Denies itchy eyes ENT: Denies nasal congestion, Denies post nasal drip, Denies sinus pain, Denies sinus pressure and Denies other ( Thrush) Cardiovascular: Cardiovascular: Denies chest pain, Denies pedal edema, Reports dyspnea, Denies orthopnea and Denies paroxysmal nocturnal dyspnea Respiratory: Respiratory: Denies cough, Denies hemoptysis, Denies excessive phlegm production, Reports dyspnea, Denies snoring and Denies wheezing Gastrointestinal: Gastrointestinal: Denies abdominal pain and Denies heartburn Musculoskeletal: Musculoskeletal: Denies myalgias, Denies arthralgias and Denies joint swelling Integumentary/Breasts: Skin/Breast: Denies rash Neurologic: Denies memory loss and Denies seizure-like activity Psychiatric: Psychiatric: Denies abnormal sleep pattern, Denies anxiety and Denies memory loss Endocrine: Endocrine: Denies excessive sweating, Denies fatigue and Denies heat intolerance Hematologic/Lymphatic: Hematologic/Lymphatic: Denies easy bruising Allergic/Immunologic: Allergic/Immunologic: Denies itchy eyes, Denies seasonal rhinorrhea and Denies wheezing PMFSH Past Medical History Medical History Acute meniscal tear of right knee Anxiety and depression Bilateral carpal tunnel syndrome Diabetic nephropathy Diabetic nephropathy associated with type 2 diabetes mellitus Diabetic neuropathy associated with type 2 diabetes mellitus GERD (gastroesophageal reflux disease) Hypercholesterolemia Hypertension Insomnia Obesity (BMI 30-39.9) Osteoarthritis Psoriasis Right thyroid nodule Type 2 diabetes mellitus with hyperglycemia Family History Family History Father Medical history unknown Mother Diabetes Hypertension Maternal Grandmother Pancreatic cancer Maternal Aunt Breast cancer Sister Breast cancer Other Substance use disorder Surgical History Surgical History History of section History of cholecystectomy History of D&C History of tubal ligation Social History Social History Household Members: Family Housing: Apartment Do you presently have visiting nurse or other home services: No Alcohol intake: never Patient Tobacco Use Status: Never used Tobacco e-Cigarette/Vaping Use: Never Used Second Hand Smoke Exposure: Yes service: No Current occupational status: disabled Meds Allergies Allergy/AdvReac Type Severity Reaction Status Date / Time egg Allergy Unknown throat Verified 11/10/20 08:40 swells up lisinopril Allergy Unknown Unknown Verified 11/10/20 08:40 metformin [METFORMIN] Allergy Unknown TACHYCARDIA Verified 11/10/20 08:40 AND DIARRHEA milk Allergy Unknown throat Verified 11/10/20 08:40 swells up Active Medications: Current Medications Acetaminophen (Acetaminophen 325 Mg Tablet) 650 mg PO Q6H PRN PRN Reason: Pain, Mild (Pain Scale 1-3) Albuterol Sulfate (Albuterol Sulfate 90 Mcg 8 Gm Inhaler) 4 puff INHALE Q3H PRN PRN Reason: Shortness of Breath/Wheezing Amlodipine Besylate (Amlodipine Besylate 5 Mg Tablet) 5 mg PO DAILY [facility]; Protocol Last Admin: 12/05/20 08:20 Dose: 5 mg Documented by: Ascorbic Acid (Ascorbic Acid 500 Mg Tablet) 500 mg PO DAILY [facility] Last Admin: 12/05/20 08:21 Dose: 500 mg Documented by: Aspirin (Aspirin Enteric Coated 81 Mg Tablet.) 81 mg PO DAILY [facility] Last Admin: 12/05/20 08:22 Dose: 81 mg Documented by: Atenolol (Atenolol 50 Mg Tablet) 50 mg PO DAILY [facility]; Protocol Last Admin: 12/05/20 08:21 Dose: 50 mg Documented by: Atorvastatin Calcium (Atorvastatin Calcium 10 Mg Tablet) 10 mg PO DAILY [facility] Last Admin: 12/05/20 08:23 Dose: 10 mg Documented by: Dextrose (Dextrose 50 % 25 Gm/50 Ml Vial) 25 gm IVPUSH Q15M PRN; Protocol PRN Reason: per Hypoglycemia Standing Ord. Divalproex Sodium (Divalproex Sodium 500 Mg Tablet.Dr) 500 mg PO BID [facility] Last Admin: 12/05/20 08:23 Dose: Not Given Documented by: Docusate Sodium (Docusate Sodium 100 Mg Capsule) 100 mg PO DAILY PRN PRN Reason: Constipation Escitalopram Oxalate (Escitalopram Oxalate 20 Mg Tablet) 20 mg PO DAILY [facility] Last Admin: 12/05/20 08:24 Dose: Not Given Documented by: Famotidine (Famotidine 20 Mg Tablet) 40 mg PO BID [facility] Last Admin: 12/05/20 08:21 Dose: 40 mg Documented by: Glucose (Glucose Gel 15 Gm Gel..Gram.) 15 gm PO Q15M PRN; Protocol PRN Reason: per Hypoglycemia Standing Ord. Guaifenesin/Dextromethorphan (Guaifenesin Dm 200/20/10 Ml 10 Ml Syrup) 10 ml PO Q6H PRN PRN Reason: cough Heparin Sodium (Porcine) (Heparin Sodium,Porcine 5,000 Unit/Ml Vial) 5,000 unit SUBCUT Q12H [facility] Last Admin: 12/05/20 08:19 Dose: 5,000 unit Documented by: Insulin Glargine (Insulin Glargine,Hum.Rec.Anlog 100 Unit/Ml 10 Ml Vial) 20 unit SUBCUT BEDTIME [facility] Last Admin: 12/04/20 20:50 Dose: 20 unit Documented by: Insulin Human Lispro (Insulin Lispro 100 Unit/Ml 3 Ml Vial) 0 unit SUBCUT QIDACHS [facility]; Protocol Last Admin: 12/05/20 12:00 Dose: 10 unit Documented by: Methylprednisolone Sodium Succinate (Methylprednisolone Sod Succ 40 Mg/Ml Vial) 80 mg IVPUSH Q12H [facility] Last Admin: 12/05/20 02:29 Dose: 80 mg Documented by: Ondansetron HCl (Ondansetron Hcl 4 Mg/2 Ml Vial) 4 mg IVPUSH Q8H PRN PRN Reason: Nausea and Vomiting Pioglitazone HCl (Pioglitazone Hcl 15 Mg Tablet) 15 mg PO DAILY [facility] Last Admin: 12/05/20 08:21 Dose: 15 mg Documented by: Sodium Chloride (0.9 % Sodium Chloride Flush 3 Ml Syringe) 3 ml IVFLUSH QSHIFT [facility] Last Admin: 12/05/20 08:20 Dose: 3 ml Documented by: Vitamin D (Cholecalciferol (Vitamin D3) 25 Mcg Tablet) 50 mcg PO DAILY [facility] Last Admin: 12/05/20 08:22 Dose: 50 mcg Documented by: Zinc Sulfate (Zinc Sulfate 220 Mg Capsule) 220 mg PO DAILY [facility] Last Admin: 12/05/20 08:22 Dose: 220 mg Documented by: Home Medications Medication Instructions Recorded Confirmed Last Taken Type clonazepam 1 mg tablet 1 mg PO BID PRN 03/31/20 11/18/20 11/18/20 History divalproex 500 mg tablet,delayed 500 mg PO BID 03/31/20 11/18/20 11/18/20 History release escitalopram oxalate 20 mg tablet 20 mg PO DAILY 03/31/20 11/18/20 11/18/20 History losartan 100 mg tablet 100 mg PO DAILY 09/29/20 11/18/20 11/18/20 History atorvastatin 10 mg tablet 10 mg PO DAILY 11/18/20 11/18/20 11/18/20 History Physical Exam Vital Signs: Vital Signs: Last Vital Signs Temp 97.9 F 12/05/20 11:12 Pulse 56 12/05/20 11:12 Resp 18 12/05/20 12:20 BP 125/81 12/05/20 11:12 Pulse Ox 97 12/05/20 11:12 Body Mass Index 26.0 Const: General: no acute distress, alert and awake Nutritional Appearance: obese Eyes: Sclerae: sclerae normal EOM: EOMs intact bilaterally Neck: Neck: Yes no lymphadenopathy, Yes trachea midline and Yes supple Resp: Effort & Inspection: normal respiratory effort and no respiratory distress Auscultation: rales (Diffuse bilateral) Cardio: Rate: regular rate Rhythm: regular rhythm Heart sounds: no gallops, no murmurs and no rubs GI: Palpation (GI): Soft to palpation and Other GI palpation findings present ( Nontender) Auscultation: normal bowel sounds Extrem: General: Yes no pedal edema, No clubbing and No cyanosis Results Laboratory Findings CBC and BMP: 11/27/20 10:59 12/03/20 07:53 ABG, PT/INR, D-dimer: PT/INR, D-dimer PT 12.5 SEC (9.9-13.0) 11/18/20 19:02 INR 1.1 (0.9-1.1) 11/18/20 19:02 D-Dimer 1313 NG/ML 11/18/20 19:02 Abnormal lab findings: Abnormal Labs 11/18/20 11/18/20 11/18/20 16:57 16:57 19:01 WBC RBC Hct MCH Plt Count 156 L D Immature Gran % (Auto) 0.5 H Neut % (Auto) 86.0 H Lymph % (Auto) 10.1 L Lymph # (Auto) 0.7 L Sodium Potassium BUN Creatinine POC Glucose Random Glucose 130 H Lactic Acid 2.6 H* Ferritin Lactate Dehydrogenase C-Reactive Protein Urine Protein Urine Glucose (UA) Coronavirus (PCR) 11/18/20 11/18/20 11/18/20 19:02 19:03 20:04 WBC RBC Hct MCH Plt Count Immature Gran % (Auto) Neut % (Auto) Lymph % (Auto) Lymph # (Auto) Sodium Potassium BUN Creatinine POC Glucose Random Glucose Lactic Acid Ferritin 1147 H Lactate Dehydrogenase 622 H C-Reactive Protein 13.08 H Urine Protein 2+ H Urine Glucose (UA) >=1000 H Coronavirus (PCR) POSITIVE A 11/18/20 11/19/20 11/19/20 22:15 07:32 07:32 WBC RBC Hct MCH Plt Count Immature Gran % (Auto) Neut % (Auto) 86.3 H Lymph % (Auto) 10.4 L Lymph # (Auto) 0.6 L Sodium Potassium BUN 17 H Creatinine POC Glucose 117 H Random Glucose 155 H Lactic Acid Ferritin Lactate Dehydrogenase C-Reactive Protein Urine Protein Urine Glucose (UA) Coronavirus (PCR) 11/19/20 11/19/20 11/19/20 08:29 11:05 13:22 WBC RBC Hct MCH Plt Count Immature Gran % (Auto) Neut % (Auto) Lymph % (Auto) Lymph # (Auto) Sodium Potassium BUN Creatinine POC Glucose 188 H 180 H 165 H Random Glucose Lactic Acid Ferritin Lactate Dehydrogenase C-Reactive Protein Urine Protein Urine Glucose (UA) Coronavirus (PCR) 11/19/20 11/19/20 11/20/20 15:56 19:44 06:14 WBC 13.4 H RBC Hct MCH 26.9 L Plt Count Immature Gran % (Auto) Neut % (Auto) Lymph % (Auto) Lymph # (Auto) Sodium Potassium BUN Creatinine POC Glucose 185 H 156 H Random Glucose Lactic Acid Ferritin Lactate Dehydrogenase C-Reactive Protein Urine Protein Urine Glucose (UA) Coronavirus (PCR) 11/20/20 11/20/20 11/20/20 06:14 07:26 11:10 WBC RBC Hct MCH Plt Count Immature Gran % (Auto) Neut % (Auto) Lymph % (Auto) Lymph # (Auto) Sodium Potassium BUN 24 H Creatinine POC Glucose 147 H 171 H Random Glucose 161 H Lactic Acid Ferritin Lactate Dehydrogenase C-Reactive Protein Urine Protein Urine Glucose (UA) Coronavirus (PCR) 11/20/20 11/20/20 11/21/20 15:53 19:50 06:09 WBC RBC Hct MCH 26.7 L Plt Count Immature Gran % (Auto) Neut % (Auto) Lymph % (Auto) Lymph # (Auto) Sodium Potassium BUN Creatinine POC Glucose 230 H 175 H Random Glucose Lactic Acid Ferritin Lactate Dehydrogenase C-Reactive Protein Urine Protein Urine Glucose (UA) Coronavirus (PCR) 11/21/20 11/21/20 11/21/20 06:09 07:26 11:33 WBC RBC Hct MCH Plt Count Immature Gran % (Auto) Neut % (Auto) Lymph % (Auto) Lymph # (Auto) Sodium Potassium BUN 27 H Creatinine POC Glucose 158 H 176 H Random Glucose 166 H Lactic Acid Ferritin Lactate Dehydrogenase C-Reactive Protein Urine Protein Urine Glucose (UA) Coronavirus (PCR) 11/21/20 11/21/20 11/22/20 16:03 19:53 05:52 WBC RBC 5.67 H Hct 48.2 H MCH Plt Count Immature Gran % (Auto) Neut % (Auto) Lymph % (Auto) Lymph # (Auto) Sodium Potassium BUN Creatinine POC Glucose 213 H 200 H Random Glucose Lactic Acid Ferritin Lactate Dehydrogenase C-Reactive Protein Urine Protein Urine Glucose (UA) Coronavirus (PCR) 11/22/20 11/22/20 11/22/20 05:52 05:52 07:14 WBC RBC Hct MCH Plt Count Immature Gran % (Auto) Neut % (Auto) Lymph % (Auto) Lymph # (Auto) Sodium Potassium BUN 29 H Creatinine POC Glucose 191 H Random Glucose 183 H Lactic Acid Ferritin Lactate Dehydrogenase 867 H C-Reactive Protein 2.63 H Urine Protein Urine Glucose (UA) Coronavirus (PCR) 11/22/20 11/22/20 11/22/20 10:42 16:08 19:47 WBC RBC Hct MCH Plt Count Immature Gran % (Auto) Neut % (Auto) Lymph % (Auto) Lymph # (Auto) Sodium Potassium BUN Creatinine POC Glucose 241 H 297 H 233 H Random Glucose Lactic Acid Ferritin Lactate Dehydrogenase C-Reactive Protein Urine Protein Urine Glucose (UA) Coronavirus (PCR) 11/23/20 11/23/20 11/23/20 07:44 11:34 16:21 WBC RBC Hct MCH Plt Count Immature Gran % (Auto) Neut % (Auto) Lymph % (Auto) Lymph # (Auto) Sodium Potassium BUN Creatinine POC Glucose 219 H 183 H 234 H Random Glucose Lactic Acid Ferritin Lactate Dehydrogenase C-Reactive Protein Urine Protein Urine Glucose (UA) Coronavirus (PCR) 11/23/20 11/24/20 11/24/20 19:49 08:05 10:46 WBC RBC Hct MCH Plt Count Immature Gran % (Auto) Neut % (Auto) Lymph % (Auto) Lymph # (Auto) Sodium Potassium BUN Creatinine POC Glucose 254 H 192 H 254 H Random Glucose Lactic Acid Ferritin Lactate Dehydrogenase C-Reactive Protein Urine Protein Urine Glucose (UA) Coronavirus (PCR) 11/24/20 11/24/20 11/25/20 16:07 20:23 07:41 WBC RBC Hct MCH Plt Count Immature Gran % (Auto) Neut % (Auto) Lymph % (Auto) Lymph # (Auto) Sodium Potassium BUN Creatinine POC Glucose 255 H 211 H 167 H Random Glucose Lactic Acid Ferritin Lactate Dehydrogenase C-Reactive Protein Urine Protein Urine Glucose (UA) Coronavirus (PCR) 11/25/20 11/25/20 11/25/20 11:37 16:35 19:45 WBC RBC Hct MCH Plt Count Immature Gran % (Auto) Neut % (Auto) Lymph % (Auto) Lymph # (Auto) Sodium Potassium BUN Creatinine POC Glucose 194 H 242 H 293 H Random Glucose Lactic Acid Ferritin Lactate Dehydrogenase C-Reactive Protein Urine Protein Urine Glucose (UA) Coronavirus (PCR) 11/26/20 11/26/20 11/26/20 08:09 10:50 16:22 WBC RBC Hct MCH Plt Count Immature Gran % (Auto) Neut % (Auto) Lymph % (Auto) Lymph # (Auto) Sodium Potassium BUN Creatinine POC Glucose 183 H 214 H 293 H Random Glucose Lactic Acid Ferritin Lactate Dehydrogenase C-Reactive Protein Urine Protein Urine Glucose (UA) Coronavirus (PCR) 11/26/20 11/27/20 11/27/20 19:49 07:19 10:41 WBC RBC Hct MCH Plt Count Immature Gran % (Auto) Neut % (Auto) Lymph % (Auto) Lymph # (Auto) Sodium Potassium BUN Creatinine POC Glucose 366 H* 153 H 277 H Random Glucose Lactic Acid Ferritin Lactate Dehydrogenase C-Reactive Protein Urine Protein Urine Glucose (UA) Coronavirus (PCR) 11/27/20 11/27/20 11/27/20 10:59 10:59 16:33 WBC 21.1 H RBC Hct MCH Plt Count Immature Gran % (Auto) Neut % (Auto) Lymph % (Auto) Lymph # (Auto) Sodium 134 L Potassium BUN 41 H Creatinine 1.58 H POC Glucose 228 H Random Glucose 296 H Lactic Acid Ferritin Lactate Dehydrogenase C-Reactive Protein Urine Protein Urine Glucose (UA) Coronavirus (PCR) 11/27/20 11/28/20 11/28/20 20:34 05:34 07:50 WBC RBC Hct MCH Plt Count Immature Gran % (Auto) Neut % (Auto) Lymph % (Auto) Lymph # (Auto) Sodium Potassium BUN Creatinine POC Glucose 232 H 178 H Random Glucose Lactic Acid Ferritin Lactate Dehydrogenase C-Reactive Protein 7.53 H Urine Protein Urine Glucose (UA) Coronavirus (PCR) 11/28/20 11/28/20 11/28/20 11:08 16:02 19:52 WBC RBC Hct MCH Plt Count Immature Gran % (Auto) Neut % (Auto) Lymph % (Auto) Lymph # (Auto) Sodium Potassium BUN Creatinine POC Glucose 195 H 271 H 247 H Random Glucose Lactic Acid Ferritin Lactate Dehydrogenase C-Reactive Protein Urine Protein Urine Glucose (UA) Coronavirus (PCR) 11/29/20 11/29/20 11/29/20 07:13 10:52 15:56 WBC RBC Hct MCH Plt Count Immature Gran % (Auto) Neut % (Auto) Lymph % (Auto) Lymph # (Auto) Sodium Potassium BUN Creatinine POC Glucose 162 H 299 H 246 H Random Glucose Lactic Acid Ferritin Lactate Dehydrogenase C-Reactive Protein Urine Protein Urine Glucose (UA) Coronavirus (PCR) 11/29/20 11/30/20 11/30/20 19:55 07:16 11:23 WBC RBC Hct MCH Plt Count Immature Gran % (Auto) Neut % (Auto) Lymph % (Auto) Lymph # (Auto) Sodium Potassium BUN Creatinine POC Glucose 276 H 193 H 212 H Random Glucose Lactic Acid Ferritin Lactate Dehydrogenase C-Reactive Protein Urine Protein Urine Glucose (UA) Coronavirus (PCR) 11/30/20 11/30/20 12/01/20 16:15 19:32 05:55 WBC RBC Hct MCH Plt Count Immature Gran % (Auto) Neut % (Auto) Lymph % (Auto) Lymph # (Auto) Sodium 132 L Potassium 5.6 H BUN 51 H Creatinine POC Glucose 321 H 349 H Random Glucose 211 H Lactic Acid Ferritin Lactate Dehydrogenase C-Reactive Protein Urine Protein Urine Glucose (UA) Coronavirus (PCR) 12/01/20 12/01/20 12/01/20 07:39 11:50 15:51 WBC RBC Hct MCH Plt Count Immature Gran % (Auto) Neut % (Auto) Lymph % (Auto) Lymph # (Auto) Sodium Potassium BUN Creatinine POC Glucose 189 H 389 H* 290 H Random Glucose Lactic Acid Ferritin Lactate Dehydrogenase C-Reactive Protein Urine Protein Urine Glucose (UA) Coronavirus (PCR) 12/01/20 12/02/20 12/02/20 20:00 06:19 07:13 WBC RBC Hct MCH Plt Count Immature Gran % (Auto) Neut % (Auto) Lymph % (Auto) Lymph # (Auto) Sodium Potassium 5.5 H BUN 52 H Creatinine POC Glucose 271 H 183 H Random Glucose 206 H Lactic Acid Ferritin Lactate Dehydrogenase C-Reactive Protein Urine Protein Urine Glucose (UA) Coronavirus (PCR) 12/02/20 12/02/20 12/02/20 11:07 15:57 19:47 WBC RBC Hct MCH Plt Count Immature Gran % (Auto) Neut % (Auto) Lymph % (Auto) Lymph # (Auto) Sodium Potassium BUN Creatinine POC Glucose 364 H* 444 H* 392 H* Random Glucose Lactic Acid Ferritin Lactate Dehydrogenase C-Reactive Protein Urine Protein Urine Glucose (UA) Coronavirus (PCR) 12/03/20 12/03/20 12/03/20 07:28 07:53 11:26 WBC RBC Hct MCH Plt Count Immature Gran % (Auto) Neut % (Auto) Lymph % (Auto) Lymph # (Auto) Sodium Potassium BUN 42 H Creatinine POC Glucose 197 H 266 H Random Glucose 189 H Lactic Acid Ferritin Lactate Dehydrogenase C-Reactive Protein Urine Protein Urine Glucose (UA) Coronavirus (PCR) 12/03/20 12/03/20 12/04/20 15:56 20:27 07:16 WBC RBC Hct MCH Plt Count Immature Gran % (Auto) Neut % (Auto) Lymph % (Auto) Lymph # (Auto) Sodium Potassium BUN Creatinine POC Glucose 330 H 368 H* 254 H Random Glucose Lactic Acid Ferritin Lactate Dehydrogenase C-Reactive Protein Urine Protein Urine Glucose (UA) Coronavirus (PCR) 12/04/20 12/04/20 12/04/20 11:04 16:01 20:12 WBC RBC Hct MCH Plt Count Immature Gran % (Auto) Neut % (Auto) Lymph % (Auto) Lymph # (Auto) Sodium Potassium BUN Creatinine POC Glucose 327 H 278 H 359 H* Random Glucose Lactic Acid Ferritin Lactate Dehydrogenase C-Reactive Protein Urine Protein Urine Glucose (UA) Coronavirus (PCR) 12/05/20 12/05/20 12/05/20 06:19 07:06 10:52 WBC RBC Hct MCH Plt Count Immature Gran % (Auto) Neut % (Auto) Lymph % (Auto) Lymph # (Auto) Sodium Potassium BUN Creatinine POC Glucose 178 H 286 H Random Glucose Lactic Acid Ferritin Lactate Dehydrogenase 492 H C-Reactive Protein Urine Protein Urine Glucose (UA) Coronavirus (PCR) Microbiology: Microbiology 11/18/20 19:02 Blood - Venous Blood Culture - Final No growth after 5 days. 11/18/20 19:01 Blood - Venous Blood Culture - Final No growth after 5 days. Assessment and Plan (1) Acute respiratory failure with hypoxemia: Status: Acute (2) Acute respiratory distress syndrome (ARDS) due to COVID-19 virus: Status: Acute Impression: 50-year-old lady admitted with hypoxemia and dyspnea secondary to COVID-19 ARDS. Id treated with dexamethasone and remdesivir. Improving, albeit slowly. Recommendation: We would consider titrating glucocorticoids to an equivalent of prednisone 40 milligrams daily. Continue to titrate off supplemental oxygen as tolerated. Expect to continue to improve slowly Procedures Date of Service Date of Service: 12/05/20
--- NOTE | 2020-12-05 12:40 | P.PNIM_ITS ---
Subjective Subjective Date of Service: 12/05/20 Interval History: Being followed for hypoxic respiratory failure due to COVID-19 infection, patient awake alert denies shortness of breath at rest but noted to have shortness of breath with ambulation, denies chest pain no fever no chills no other acute issues still requiring high-flow oxygen and non-rebreather mask Review of Systems General no headache, no dizziness no fever chills.? CVS no chest pain, no palpitation.? Respiratory no cough , no shortness of breath?at rest Gastrointestinal no nausea, no vomiting, no abdominal pain Physical Exam Vital Signs: Vital Signs: Last Vital Signs Temp 97.9 F 12/05/20 11:12 Pulse 56 12/05/20 11:12 Resp 18 12/05/20 12:20 BP 125/81 12/05/20 11:12 Pulse Ox 97 12/05/20 11:12 Body Mass Index 26.0 General alert orie nted x3 talking in full sentences, n o acute distress.? Neck supple no JV D. CVS? regular ra te rhythm, Respira tory lungs no resp iratory distress, diminished breath sound, rhonchi. Ga strointestinal abd omen soft, nontend er, bowel sounds a udible,?no guardin g , norigidity. Ex tremities no? avani a. Neuro nonfocal , speech clear. Sk in no rash Objective Data Active Medications Acetaminophen (Acetaminophen 325 Mg Tablet) 650 mg PO Q6H PRN PRN Reason: Pain, Mild (Pain Scale 1-3) Albuterol Sulfate (Albuterol Sulfate 90 Mcg 8 Gm Inhaler) 4 puff INHALE Q3H PRN PRN Reason: Shortness of Breath/Wheezing Amlodipine Besylate (Amlodipine Besylate 5 Mg Tablet) 5 mg PO DAILY COUNTS INCLUDE 234 BEDS AT THE [facility]; [place] Last Admin: 12/05/20 08:20 Dose: 5 mg Documented by: GURMEET Ascorbic Acid (Ascorbic Acid 500 Mg Tablet) 500 mg PO DAILY COUNTS INCLUDE 234 BEDS AT THE [facility] Last Admin: 12/05/20 08:21 Dose: 500 mg Documented by: GURMEET Aspirin (Aspirin Enteric Coated 81 Mg Tablet.) 81 mg PO DAILY COUNTS INCLUDE 234 BEDS AT THE [facility] Last Admin: 12/05/20 08:22 Dose: 81 mg Documented by: GURMEET Atenolol (Atenolol 50 Mg Tablet) 50 mg PO DAILY COUNTS INCLUDE 234 BEDS AT THE [facility]; Protocol Last Admin: 12/05/20 08:21 Dose: 50 mg Documented by: GURMEET Atorvastatin Calcium (Atorvastatin Calcium 10 Mg Tablet) 10 mg PO DAILY COUNTS INCLUDE 234 BEDS AT THE [facility] Last Admin: 12/05/20 08:23 Dose: 10 mg Documented by: GURMEET Dextrose (Dextrose 50 % 25 Gm/50 Ml Vial) 25 gm IVPUSH Q15M PRN; Protocol PRN Reason: per Hypoglycemia Standing Ord. Divalproex Sodium (Divalproex Sodium 500 Mg Tablet.Dr) 500 mg PO BID COUNTS INCLUDE 234 BEDS AT THE [facility] Last Admin: 12/05/20 08:23 Dose: Not Given Documented by: GURMEET Non-Admin Reason: Patient Refused Docusate Sodium (Docusate Sodium 100 Mg Capsule) 100 mg PO DAILY PRN PRN Reason: Constipation Escitalopram Oxalate (Escitalopram Oxalate 20 Mg Tablet) 20 mg PO DAILY COUNTS INCLUDE 234 BEDS AT THE [facility] Last Admin: 12/05/20 08:24 Dose: Not Given Documented by: GURMEET Non-Admin Reason: Patient Refused Famotidine (Famotidine 20 Mg Tablet) 40 mg PO BID COUNTS INCLUDE 234 BEDS AT THE [facility] Last Admin: 12/05/20 08:21 Dose: 40 mg Documented by: GURMEET Glucose (Glucose Gel 15 Gm Gel..Gram.) 15 gm PO Q15M PRN; Protocol PRN Reason: per Hypoglycemia Standing Ord. Guaifenesin/Dextromethorphan (Guaifenesin Dm 200/20/10 Ml 10 Ml Syrup) 10 ml PO Q6H PRN PRN Reason: cough Heparin Sodium (Porcine) (Heparin Sodium,Porcine 5,000 Unit/Ml Vial) 5,000 unit SUBCUT Q12H COUNTS INCLUDE 234 BEDS AT THE [facility] Last Admin: 12/05/20 08:19 Dose: 5,000 unit Documented by: GURMEET Insulin Glargine (Insulin Glargine,Hum.Rec.Anlog 100 Unit/Ml 10 Ml Vial) 20 unit SUBCUT BEDTIME COUNTS INCLUDE 234 BEDS AT THE [facility] Last Admin: 12/04/20 20:50 Dose: 20 unit Documented by: QUIANA Insulin Human Lispro (Insulin Lispro 100 Unit/Ml 3 Ml Vial) 0 unit SUBCUT QIDACHS COUNTS INCLUDE 234 BEDS AT THE [facility]; Protocol Last Admin: 12/05/20 12:00 Dose: 10 unit Documented by: GURMEET Methylprednisolone Sodium Succinate (Methylprednisolone Sod Succ 40 Mg/Ml Vial) 80 mg IVPUSH Q12H COUNTS INCLUDE 234 BEDS AT THE [facility] Last Admin: 12/05/20 02:29 Dose: 80 mg Documented by: QUIANA Ondansetron HCl (Ondansetron Hcl 4 Mg/2 Ml Vial) 4 mg IVPUSH Q8H PRN PRN Reason: Nausea and Vomiting Pioglitazone HCl (Pioglitazone Hcl 15 Mg Tablet) 15 mg PO DAILY COUNTS INCLUDE 234 BEDS AT THE [facility] Last Admin: 12/05/20 08:21 Dose: 15 mg Documented by: GURMEET Sodium Chloride (0.9 % Sodium Chloride Flush 3 Ml Syringe) 3 ml IVFLUSH QSHIFT COUNTS INCLUDE 234 BEDS AT THE [facility] Last Admin: 12/05/20 08:20 Dose: 3 ml Documented by: GURMEET Vitamin D (Cholecalciferol (Vitamin D3) 25 Mcg Tablet) 50 mcg PO DAILY COUNTS INCLUDE 234 BEDS AT THE [facility] Last Admin: 12/05/20 08:22 Dose: 50 mcg Documented by: GURMEET Zinc Sulfate (Zinc Sulfate 220 Mg Capsule) 220 mg PO DAILY COUNTS INCLUDE 234 BEDS AT THE [facility] Last Admin: 12/05/20 08:22 Dose: 220 mg Documented by: GURMEET Labs CBC & Chem 7: 11/27/20 10:59 12/03/20 07:53 Labs: Laboratory Results - last 24 hr 12/04/20 12/04/20 12/05/20 16:01 20:12 06:19 POC Glucose 278 H 359 H* Lactate Dehydrogenase 492 H C-Reactive Protein 0.16 12/05/20 12/05/20 07:06 10:52 POC Glucose 178 H 286 H Lactate Dehydrogenase C-Reactive Protein Assessment and Plan (1) Acute respiratory distress syndrome (ARDS) due to COVID-19 virus: Status: Acute (2) COVID-19 virus infection: Status: Acute (3) Hypertension: Status: Acute (4) Type 2 diabetes mellitus with hyperglycemia: Status: Acute (5) Hyperkalemia: Status: Acute Assessment and Plan: 50-year-old female unvaccinated presents to the hospital with complaints of sh ortness of breath found to have COVID-19 pneumonia with viral sepsis # Acute hypoxic respiratory failure d/t covid 19 ?? denies shortness of breath at rest, persistent shortness of breath with activity, denies cough, no fever chills no other overnight acute issues, oxygenation remains borderline 90- 91%,on high-flow oxygen, and non-rebreather mask, patient following frequent position change, out of bed to chair and using incentive spirometery ?? completed 10 days of Dexamethasone,? completed 5 days of? remdesivir, continue Pepcid 40 b.i.d. , continue vitamin C, and zinc, continue cough med ication, on IV steroid 80 mg b.i.d. CRP 0.16 down from 13.08, LDH 867 down to 492 ?? Consulted pulmonology case discussed with Dr. Manzo, he recommend to wean IV Solu Medrol and continue above treatment # Hypertension--continue Norvasc and atenolol, BP stable, hold Losartan d/t PEREZ #PEREZ--now resolved was likely pre renal , avoid nephrotoxins # hyperkalemia? resolved was likely due to hyperglycemia, status post Kayexalate, continue to hold losartan #Diabetes--BS elevated likely due to steroid,continue Actos, and insulin sliding scale, added Lantus 20 units bedtime, at home takes metformin and Actos # Anxiety and depression continue home medications # Hyperlipidemia ? continue lipitor DVT prophylaxis Heparin subQ Quality Stroke Does the patient have a stroke diagnosis?: No VTE Prior VTE?: No VTE Risk Level:: Medical - moderate - high VTE Device Contraindication: Treatment Not Indicated VTE Drug Contraindication: N/A - Med Ordered
[2020-12-05 16:02] LABS: Glucose, Whole Blood 286 mg/dL (60-115)
[2020-12-05 20:06] LABS: Glucose, Whole Blood 311 mg/dL (60-115)
[2020-12-05] MEDS: Insulin Glargine,Hum.rec.anlog 100 UNIT/ML 10 ML VIAL 20 UNIT SUBCUT (20:31)
[2020-12-06] VITALS (14 sets, daily range): BP systolic 97–133; BP diastolic 55–86; PULSE 54–71; RESP 18–20; TEMP 36.2–36.9; O2SAT 88–97
[2020-12-06 07:19] LABS: Glucose, Whole Blood 106 mg/dL (60-115)
[2020-12-06] MEDS: 0.9 % Sodium Chloride Flush 3 ML SYRINGE IVFLUSH ×3 (08:40→21:31)
[2020-12-06] MEDS: methylPREDNISolone Sod Succ 40 MG/ML VIAL IVPUSH (08:41)
[2020-12-06] MEDS: Cholecalciferol (Vitamin D3) 25 MCG TABLET 50 MCG PO (08:42)
[2020-12-06] MEDS: Heparin Sodium,Porcine 5,000 UNIT/ML VIAL 5000 UNIT SUBCUT ×2 (08:42→21:31)
[2020-12-06] MEDS: Zinc Sulfate 220 MG CAPSULE PO (08:42)
[2020-12-06] MEDS: Atorvastatin Calcium 10 MG TABLET PO (08:42)
[2020-12-06] MEDS: Famotidine 20 MG TABLET 40 MG PO ×2 (08:43→21:31)
[2020-12-06] MEDS: atenoloL 50 MG TABLET PO (08:43)
[2020-12-06] MEDS: amLODIPine Besylate 5 MG TABLET PO (08:43)
[2020-12-06] MEDS: Ascorbic Acid 500 MG TABLET PO (08:43)
[2020-12-06] MEDS: Aspirin Enteric Coated 81 MG TABLET.DR PO (08:43)
--- NOTE | 2020-12-06 09:24 | HO.PM.IMPN ---
Subjective Subjective Date of Service: 12/06/20 Interval History: Being followed for acute hypoxic respiratory failure due to COVID infection, or night oxygen requirement improved currently on high-flow 50%, offers no acute complaints oxygenation drops with ambulation and with eating to 89 - 90% Review of Systems General no headache, no dizziness no fever chills.? CVS no chest pain, no palpitation.? Respiratory no cough , no shortness of breath?at rest Gastrointestinal no nausea, no vomiting, no abdominal pain Physical Exam Vital Signs: Vital Signs: Last Vital Signs Temp 98.0 F 12/06/20 07:37 Pulse 62 12/06/20 08:43 Resp 20 12/06/20 07:59 BP 107/55 L 12/06/20 08:43 Pulse Ox 91 L 12/06/20 07:37 Body Mass Index 26.0 General alert oriented x3 talking in?full sentences, no acute distress.? Neck supple no JVD. CVS? regular rate rhythm, Respiratory lungs no respiratory distress,diminished breathsound, rhonchi. Gastrointestinal abdomen soft, nontender, bowel sounds audible,?no guarding , norigidity. Extremities no? edema. Neuro nonfocal, speech clear. Skin no rash Objective Data Active Medications Acetaminophen (Acetaminophen 325 Mg Tablet) 650 mg PO Q6H PRN PRN Reason: Pain, Mild (Pain Scale 1-3) Albuterol Sulfate (Albuterol Sulfate 90 Mcg 8 Gm Inhaler) 4 puff INHALE Q3H PRN PRN Reason: Shortness of Breath/Wheezing Amlodipine Besylate (Amlodipine Besylate 5 Mg Tablet) 5 mg PO DAILY [facility]; Protocol Last Admin: 12/06/20 08:43 Dose: 5 mg Documented by: GURMEET Ascorbic Acid (Ascorbic Acid 500 Mg Tablet) 500 mg PO DAILY [facility] Last Admin: 12/06/20 08:43 Dose: 500 mg Documented by: GURMEET Aspirin (Aspirin Enteric Coated 81 Mg Tablet.) 81 mg PO DAILY [facility] Last Admin: 12/06/20 08:43 Dose: 81 mg Documented by: GURMEET Atenolol (Atenolol 50 Mg Tablet) 50 mg PO DAILY [facility]; Protocol Last Admin: 12/06/20 08:43 Dose: 50 mg Documented by: GURMEET Atorvastatin Calcium (Atorvastatin Calcium 10 Mg Tablet) 10 mg PO DAILY [facility] Last Admin: 12/06/20 08:42 Dose: 10 mg Documented by: GURMEET Dextrose (Dextrose 50 % 25 Gm/50 Ml Vial) 25 gm IVPUSH Q15M PRN; Protocol PRN Reason: per Hypoglycemia Standing Ord. Divalproex Sodium (Divalproex Sodium 500 Mg Tablet.Dr) 500 mg PO BID [facility] Last Admin: 12/06/20 08:43 Dose: Not Given Documented by: GURMEET Non-Admin Reason: Patient Refused Docusate Sodium (Docusate Sodium 100 Mg Capsule) 100 mg PO DAILY PRN PRN Reason: Constipation Escitalopram Oxalate (Escitalopram Oxalate 20 Mg Tablet) 20 mg PO DAILY [facility] Last Admin: 12/06/20 08:44 Dose: Not Given Documented by: GURMEET Non-Admin Reason: Patient Refused Famotidine (Famotidine 20 Mg Tablet) 40 mg PO BID [facility] Last Admin: 12/06/20 08:43 Dose: 40 mg Documented by: GURMEET Glucose (Glucose Gel 15 Gm Gel..Gram.) 15 gm PO Q15M PRN; Protocol PRN Reason: per Hypoglycemia Standing Ord. Guaifenesin/Dextromethorphan (Guaifenesin Dm 200/20/10 Ml 10 Ml Syrup) 10 ml PO Q6H PRN PRN Reason: cough Heparin Sodium (Porcine) (Heparin Sodium,Porcine 5,000 Unit/Ml Vial) 5,000 unit SUBCUT Q12H [facility] Last Admin: 12/06/20 08:42 Dose: 5,000 unit Documented by: GURMEET Insulin Glargine (Insulin Glargine,Hum.Rec.Anlog 100 Unit/Ml 10 Ml Vial) 20 unit SUBCUT BEDTIME [facility] Last Admin: 12/05/20 20:31 Dose: 20 unit Documented by: SILKE Insulin Human Lispro (Insulin Lispro 100 Unit/Ml 3 Ml Vial) 0 unit SUBCUT QIDACHS [facility]; Protocol Last Admin: 12/06/20 07:26 Dose: Not Given Documented by: GURMEET Non-Admin Reason: No Insulin Coverage Methylprednisolone Sodium Succinate (Methylprednisolone Sod Succ 40 Mg/Ml Vial) 40 mg IVPUSH DAILY [facility] Last Admin: 12/06/20 08:41 Dose: 40 mg Documented by: GURMEET Ondansetron HCl (Ondansetron Hcl 4 Mg/2 Ml Vial) 4 mg IVPUSH Q8H PRN PRN Reason: Nausea and Vomiting Pioglitazone HCl (Pioglitazone Hcl 15 Mg Tablet) 15 mg PO DAILY [facility] Last Admin: 12/06/20 08:43 Dose: 15 mg Documented by: GURMEET Sodium Chloride (0.9 % Sodium Chloride Flush 3 Ml Syringe) 3 ml IVFLUSH QSHIFT [facility] Last Admin: 12/06/20 08:40 Dose: 3 ml Documented by: GURMEET Vitamin D (Cholecalciferol (Vitamin D3) 25 Mcg Tablet) 50 mcg PO DAILY [facility] Last Admin: 12/06/20 08:42 Dose: 50 mcg Documented by: GURMEET Zinc Sulfate (Zinc Sulfate 220 Mg Capsule) 220 mg PO DAILY [facility] Last Admin: 12/06/20 08:42 Dose: 220 mg Documented by: GURMEET Labs CBC & Chem 7: 11/27/20 10:59 12/03/20 07:53 Labs: Laboratory Results - last 24 hr 12/05/20 12/05/20 12/05/20 10:52 15:57 19:59 POC Glucose 286 H 286 H 311 H 12/06/20 07:13 POC Glucose 106 Assessment and Plan (1) Acute respiratory distress syndrome (ARDS) due to COVID-19 virus: Status: Acute (2) Pneumonia due to 2019-nCoV: Status: Acute (3) Hyperkalemia: Status: Acute (4) Type 2 diabetes mellitus with hyperglycemia: Status: Acute (5) Hypercholesterolemia: Status: Acute Assessment and Plan: 50-year-old female unvaccinated presents to the hospital with complaints of shortness of breath found to have COVID-19 pneumonia with viral sepsis # Acute hypoxic respiratory failure d/t covid 19 Says patient slowly improving with less oxygen requirement ?? denies shortness of breath ,denies cough, no fever, chills, no other overnight acute issues, oxygenation improving on high-flow oxygen, not on Venti mask ?? patient following frequent position change, out of bed to chair and using incentive spirometery ?? completed 10 days of Dexamethasone,? completed 5 days of? remdesivir, continue Pepcid 40 b.i.d. , continue vitamin C, and zinc, continue cough medication, on IV steroid 40mg daily ?? CRP 0.16 trended down from 13.08, LDH 867 down to 492 ?? Patient seen by practice coordinator they agree with current treatment and recommend to titrate of supplement oxygen as tolerated # Hypertension--noted to have low blood pressure this a.m. on Norvasc and atenolol, follow BP closely and adjust medication, Losartan held d/t PEREZ #PEREZ--now resolved was likely pre renal , avoid nephrotoxins # hyperkalemia? resolved was likely due to hyperglycemia, status post Kayexalate, continue to hold losartan #Diabetes--BS better controlled with addition of Lantus and sliding scale,continue Actos, ,at home takes metformin and Actos # Anxiety and depression continue home medications # Hyperlipidemia ? continue lipitor DVT prophylaxis Heparin subQ Quality Stroke Does the patient have a stroke diagnosis?: No VTE Prior VTE?: No VTE Risk Level:: Medical - moderate - high VTE Device Contraindication: Treatment Not Indicated VTE Drug Contraindication: N/A - Med Ordered
[2020-12-06 11:04] LABS: Glucose, Whole Blood 177 mg/dL (60-115)
[2020-12-06] MEDS: Insulin Lispro 100 UNIT/ML 3 ML VIAL SUBCUT ×3 (11:51→21:31)
[2020-12-06 16:43] LABS: Glucose, Whole Blood 287 mg/dL (60-115)
[2020-12-06 20:46] LABS: Glucose, Whole Blood 381 mg/dL (60-115)
[2020-12-06] MEDS: Insulin Glargine,Hum.rec.anlog 100 UNIT/ML 10 ML VIAL 20 UNIT SUBCUT (21:31)
[2020-12-07] VITALS (7 sets, daily range): BP systolic 101–150; BP diastolic 60–77; PULSE 48–78; RESP 18–21; TEMP 35.5–36.8; O2SAT 85–94
[2020-12-07 07:16] LABS: Glucose, Whole Blood 111 mg/dL (60-115)
[2020-12-07] MEDS: Zinc Sulfate 220 MG CAPSULE PO (09:22)
[2020-12-07] MEDS: Cholecalciferol (Vitamin D3) 25 MCG TABLET 50 MCG PO (09:22)
[2020-12-07] MEDS: Atorvastatin Calcium 10 MG TABLET PO (09:22)
[2020-12-07] MEDS: methylPREDNISolone Sod Succ 40 MG/ML VIAL IVPUSH (09:23)
[2020-12-07] MEDS: Ascorbic Acid 500 MG TABLET PO (09:23)
[2020-12-07] MEDS: Aspirin Enteric Coated 81 MG TABLET.DR PO (09:23)
[2020-12-07] MEDS: Famotidine 20 MG TABLET 40 MG PO ×2 (09:23→19:41)
[2020-12-07] MEDS: 0.9 % Sodium Chloride Flush 3 ML SYRINGE IVFLUSH ×3 (09:24→19:43)
[2020-12-07] MEDS: Heparin Sodium,Porcine 5,000 UNIT/ML VIAL 5000 UNIT SUBCUT ×2 (09:25→19:42)
--- NOTE | 2020-12-07 09:44 | PC.NURSE ---
MD NOTIFIED OF BP: 108/56, PER MD HOLD AMLODIPINE AND ATENOLOL. PT REFUSED: DIVALPROEX SODIUM AND ESCITALPRAM OXALATE.
--- NOTE | 2020-12-07 11:09 | MHC.CM.PN ---
Per ROUNDS discussion, Patient is not yet medically cleared for dc (High flow O2 and IV Solu Medrol).Home is the goal for dc and CM will follow for possible need to adjust the dc plan.
--- NOTE | 2020-12-07 11:22 | HO.PM.IMPN ---
Subjective Subjective Date of Service: 12/07/20 Interval History: Being followed for acute hypoxic respiratory failure due to COVID infection, persistent hypoxia finger oximetry 89-90% on high-flow oxygen, patient denies shortness of breath no chest pain, no lightheadedness or dizziness but complained of short of breath with ambulation Review of Systems General no headache, no dizziness no fever chills.? CVS no chest pain, no palpitation.? Respiratory no cough , no shortness of breath?at rest Gastrointestinal no nausea, no vomiting, no abdominal pain Physical Exam Vital Signs: Vital Signs: Last Vital Signs Temp 96 F L 12/07/20 11:04 Pulse 48 L 12/07/20 11:04 Resp 20 12/07/20 11:04 BP 142/77 H 12/07/20 11:04 Pulse Ox 92 12/07/20 11:04 Body Mass Index 26.0 General alert oriented x3 talking in?full sentences, no acute distress.? Neck supple no JVD. CVS? regular rate rhythm, Respiratory lungs no respiratory distress,diminished breathsound, bibasilar rhonchi. Gastrointestinal abdomen soft, nontender, bowel sounds audible,?no guarding , norigidity. Extremities no? edema. Neuro nonfocal, speech clear. Skin no rash Objective Data Active Medications Acetaminophen (Acetaminophen 325 Mg Tablet) 650 mg PO Q6H PRN PRN Reason: Pain, Mild (Pain Scale 1-3) Albuterol Sulfate (Albuterol Sulfate 90 Mcg 8 Gm Inhaler) 4 puff INHALE Q3H PRN PRN Reason: Shortness of Breath/Wheezing Amlodipine Besylate (Amlodipine Besylate 5 Mg Tablet) 5 mg PO DAILY [facility]; Protocol Last Admin: 12/07/20 09:14 Dose: Not Given Documented by: EDELMIRA Non-Admin Reason: Physician Held Med Comments: notified of bp: 108/56. per to hold Ascorbic Acid (Ascorbic Acid 500 Mg Tablet) 500 mg PO DAILY [facility] Last Admin: 12/07/20 09:23 Dose: 500 mg Documented by: EDELMIRA Aspirin (Aspirin Enteric Coated 81 Mg Tablet.) 81 mg PO DAILY [facility] Last Admin: 12/07/20 09:23 Dose: 81 mg Documented by: EDELMIRA Atenolol (Atenolol 50 Mg Tablet) 50 mg PO DAILY [facility]; Protocol Last Admin: 12/07/20 09:15 Dose: Not Given Documented by: EDELMIRA Non-Admin Reason: Physician Held Med Comments: md notified of bp: 108/56. hold per md Atorvastatin Calcium (Atorvastatin Calcium 10 Mg Tablet) 10 mg PO DAILY [facility] Last Admin: 12/07/20 09:22 Dose: 10 mg Documented by: EDELMIRA Dextrose (Dextrose 50 % 25 Gm/50 Ml Vial) 25 gm IVPUSH Q15M PRN; Protocol PRN Reason: per Hypoglycemia Standing Ord. Divalproex Sodium (Divalproex Sodium 500 Mg Tablet.Dr) 500 mg PO BID [facility] Last Admin: 12/07/20 09:21 Dose: Not Given Documented by: EDELMIRA Non-Admin Reason: Patient Refused Docusate Sodium (Docusate Sodium 100 Mg Capsule) 100 mg PO DAILY PRN PRN Reason: Constipation Escitalopram Oxalate (Escitalopram Oxalate 20 Mg Tablet) 20 mg PO DAILY [facility] Last Admin: 12/07/20 09:21 Dose: Not Given Documented by: EDELMIRA Non-Admin Reason: Patient Refused Famotidine (Famotidine 20 Mg Tablet) 40 mg PO BID [facility] Last Admin: 12/07/20 09:23 Dose: 40 mg Documented by: EDELMIRA Glucose (Glucose Gel 15 Gm Gel..Gram.) 15 gm PO Q15M PRN; Protocol PRN Reason: per Hypoglycemia Standing Ord. Guaifenesin/Dextromethorphan (Guaifenesin Dm 200/20/10 Ml 10 Ml Syrup) 10 ml PO Q6H PRN PRN Reason: cough Heparin Sodium (Porcine) (Heparin Sodium,Porcine 5,000 Unit/Ml Vial) 5,000 unit SUBCUT Q12H [facility] Last Admin: 12/07/20 09:25 Dose: 5,000 unit Documented by: EDELMIRA Insulin Glargine (Insulin Glargine,Hum.Rec.Anlog 100 Unit/Ml 10 Ml Vial) 20 unit SUBCUT BEDTIME [facility] Last Admin: 12/06/20 21:31 Dose: 20 unit Documented by: IRENA Insulin Human Lispro (Insulin Lispro 100 Unit/Ml 3 Ml Vial) 0 unit SUBCUT QIDACHS [facility]; Protocol Last Admin: 12/07/20 07:18 Dose: Not Given Documented by: EDELMIRA Non-Admin Reason: No Insulin Coverage Comments: poc 111 Methylprednisolone Sodium Succinate (Methylprednisolone Sod Succ 40 Mg/Ml Vial) 40 mg IVPUSH DAILY [facility] Last Admin: 12/07/20 09:23 Dose: 40 mg Documented by: EDELMIRA Ondansetron HCl (Ondansetron Hcl 4 Mg/2 Ml Vial) 4 mg IVPUSH Q8H PRN PRN Reason: Nausea and Vomiting Pioglitazone HCl (Pioglitazone Hcl 15 Mg Tablet) 15 mg PO DAILY [facility] Last Admin: 12/07/20 09:22 Dose: 15 mg Documented by: EDELMIRA Sodium Chloride (0.9 % Sodium Chloride Flush 3 Ml Syringe) 3 ml IVFLUSH QSHIFT [facility] Last Admin: 12/07/20 09:24 Dose: 3 ml Documented by: EDELMIRA Vitamin D (Cholecalciferol (Vitamin D3) 25 Mcg Tablet) 50 mcg PO DAILY [facility] Last Admin: 12/07/20 09:22 Dose: 50 mcg Documented by: EDELMIRA Zinc Sulfate (Zinc Sulfate 220 Mg Capsule) 220 mg PO DAILY [facility] Last Admin: 12/07/20 09:22 Dose: 220 mg Documented by: EDELMIRA Labs CBC & Chem 7: 11/27/20 10:59 12/03/20 07:53 Labs: Laboratory Results - last 24 hr 12/06/20 12/06/20 12/07/20 15:39 19:51 07:06 POC Glucose 287 H 381 H* 111 Assessment and Plan (1) Acute respiratory distress syndrome (ARDS) due to COVID-19 virus: Status: Acute (2) Acute respiratory failure with hypoxemia: Status: Acute (3) Hyperkalemia: Status: Acute (4) Pneumonia due to 2019-nCoV: Status: Acute (5) Type 2 diabetes mellitus with hyperglycemia: Status: Acute (6) Hypertension: Status: Acute Assessment and Plan: 50-year-old female unvaccinated presents to the hospital with complaints of shortness of breath found to have COVID-19 pneumonia with viral sepsis # Acute hypoxic respiratory failure d/t covid 19 ?? slowly improving with less oxygen requirement ?? denies shortness of breath ,denies cough, no fever, chills, no other overnight acute issues, oxygenation borderline low on high-flow oxygen, not on Venti mask ?? patient following frequent position change, out of bed to chair and using incentive spirometery ?? completed 10 days of Dexamethasone,? completed 5 days of? remdesivir, continue Pepcid 40 b.i.d. , continue vitamin C, and zinc, continue cough medication, on IV steroid 40mg daily ?? CRP 0.16 trended down from 13.08, LDH 867 down to 492 ?? Will continue to titrate oxygen as tolerated # Hypertension--noted to have soft blood pressures on Norvasc and atenolol, will hold Norvasc continue atenolol and follow BP, losartan held on admission due to PEREZ #PEREZ--now resolved was likely pre renal , avoid nephrotoxins # hyperkalemia? resolved was likely due to hyperglycemia, status post Kayexalate, continue to hold losartan #Diabetes--BS better controlled with addition of Lantus and sliding scale,continue Actos, ,at home takes metformin and Actos # Anxiety and depression continue home medications # Hyperlipidemia ? continue lipitor DVT prophylaxis Heparin subQ Quality Stroke Does the patient have a stroke diagnosis?: No VTE Prior VTE?: No VTE Risk Level:: Medical - moderate - high VTE Device Contraindication: Treatment Not Indicated VTE Drug Contraindication: N/A - Med Ordered
[2020-12-07 12:01] LABS: Glucose, Whole Blood 165 mg/dL (60-115)
[2020-12-07] MEDS: Insulin Lispro 100 UNIT/ML 3 ML VIAL SUBCUT ×3 (12:12→19:42)
[2020-12-07 15:52] LABS: Glucose, Whole Blood 294 mg/dL (60-115)
[2020-12-07] MEDS: Insulin Glargine,Hum.rec.anlog 100 UNIT/ML 10 ML VIAL 20 UNIT SUBCUT (19:41)
[2020-12-07 19:44] LABS: Glucose, Whole Blood 357 mg/dL (60-115)
[2020-12-08] VITALS (9 sets, daily range): BP systolic 113–141; BP diastolic 69–89; PULSE 61–89; RESP 16–22; TEMP 36.2–36.9; O2SAT 85–95
[2020-12-08 07:08] LABS: Hematocrit 40.1 % (37-47); Hemoglobin 13.2 g/dl (12.0-16.0); Mean Corpuscular HGB Conc 32.9 g/dl (31.0-35.0); Mean Corpuscular Hemoglobin 27.2 pg (27.0-33.0); Mean Corpuscular Volume 82.7 fL (80-98); Mean Platelet Volume 12.2 fL (9.4-12.3); Platelet Count 174 X10*3/uL (160-400); Red Blood Count 4.85 X10*6/uL (4.20-5.50); Red Cell Distribution Width 14.5 % (11.0-16.0); White Blood Count 9.7 X10*3/uL (4.8-10.8)
[2020-12-08 07:42] LABS: Anion Gap 14 (12-20); Blood Urea Nitrogen 38 mg/dL (9-16); Calcium 8.9 mg/dL (8.4-10.2); Carbon Dioxide 24 mmol/L (22-29); Chloride 102 mmol/L (96-108); Creatinine Clr Calc Pharmacy 63.3; Estimated Glomerular Filt Rate 49; Glucose Random 110 mg/dL (60-115); Potassium 5.4 mmol/L (3.3-5.1); Sodium 135 mmol/L (135-145)
[2020-12-08 07:44] LABS: Glucose, Whole Blood 100 mg/dL (60-115)
[2020-12-08 11:14] LABS: Glucose, Whole Blood 151 mg/dL (60-115)
[2020-12-08] MEDS: Zinc Sulfate 220 MG CAPSULE PO (11:15)
[2020-12-08] MEDS: Ascorbic Acid 500 MG TABLET PO (11:15)
[2020-12-08] MEDS: Escitalopram Oxalate 20 MG TABLET PO (11:16)
[2020-12-08] MEDS: atenoloL 50 MG TABLET PO (11:16)
[2020-12-08] MEDS: Cholecalciferol (Vitamin D3) 25 MCG TABLET 50 MCG PO (11:16)
[2020-12-08] MEDS: Famotidine 20 MG TABLET 40 MG PO ×2 (11:17→20:10)
[2020-12-08] MEDS: Atorvastatin Calcium 10 MG TABLET PO (11:18)
[2020-12-08] MEDS: Aspirin Enteric Coated 81 MG TABLET.DR PO (11:18)
[2020-12-08] MEDS: Heparin Sodium,Porcine 5,000 UNIT/ML VIAL 5000 UNIT SUBCUT ×2 (11:18→20:10)
[2020-12-08] MEDS: methylPREDNISolone Sod Succ 40 MG/ML VIAL IVPUSH (11:19)
[2020-12-08] MEDS: 0.9 % Sodium Chloride Flush 3 ML SYRINGE IVFLUSH ×3 (11:19→20:10)
[2020-12-08] MEDS: Insulin Lispro 100 UNIT/ML 3 ML VIAL SUBCUT ×3 (11:25→22:43)
--- NOTE | 2020-12-08 12:30 | P.PNIM_ITS ---
Subjective Subjective Date of Service: 12/08/20 Interval History: Being followed for acute hypoxic respiratory failure due to COVID-19 infection, denies chest pain, persistent shortness of bread with activity, oxygen requirement is decreasing currently on 15 L of oxygen, High-flow oxygen discontinued overnight. Review of Systems General no headache, no dizziness no fever chills.? CVS no chest pain, no palpitation.? Respiratory no cough , no shortness of breath?at rest Gastrointestinal no nausea, no vomiting, no abdominal pain Physical Exam Vital Signs: Vital Signs: Last Vital Signs Temp 97.3 F 12/08/20 11:49 Pulse 85 12/08/20 11:49 Resp 20 12/08/20 11:49 BP 119/77 12/08/20 11:49 Pulse Ox 91 L 12/08/20 11:49 Body Mass Index 26.0 General alert oriented x3 talking in?full sentences, no acute distress.? Neck supple no JVD. CVS? regular rate rhythm, Respiratory lungs no respiratory distress,diminished breathsound, bibasilar rhonchi. Gastrointestinal abdomen soft, nontender, bowel sounds audible,?no guarding , norigidity. Extremities no? edema. Neuro nonfocal, speech clear. Skin no rash Objective Data Active Medications Acetaminophen (Acetaminophen 325 Mg Tablet) 650 mg PO Q6H PRN PRN Reason: Pain, Mild (Pain Scale 1-3) Albuterol Sulfate (Albuterol Sulfate 90 Mcg 8 Gm Inhaler) 4 puff INHALE Q3H PRN PRN Reason: Shortness of Breath/Wheezing Ascorbic Acid (Ascorbic Acid 500 Mg Tablet) 500 mg PO DAILY [facility] Last Admin: 12/08/20 11:15 Dose: 500 mg Documented by: ANISHA Aspirin (Aspirin Enteric Coated 81 Mg Tablet.) 81 mg PO DAILY [facility] Last Admin: 12/08/20 11:18 Dose: 81 mg Documented by: ANISHA Atenolol (Atenolol 50 Mg Tablet) 50 mg PO DAILY [facility]; Protocol Last Admin: 12/08/20 11:16 Dose: 50 mg Documented by: ANISHA Atorvastatin Calcium (Atorvastatin Calcium 10 Mg Tablet) 10 mg PO DAILY [facility] Last Admin: 12/08/20 11:18 Dose: 10 mg Documented by: ANISHA Dextrose (Dextrose 50 % 25 Gm/50 Ml Vial) 25 gm IVPUSH Q15M PRN; Protocol PRN Reason: per Hypoglycemia Standing Ord. Divalproex Sodium (Divalproex Sodium 500 Mg Tablet.Dr) 500 mg PO BID [facility] Last Admin: 12/08/20 11:16 Dose: 500 mg Documented by: ANISHA Docusate Sodium (Docusate Sodium 100 Mg Capsule) 100 mg PO DAILY PRN PRN Reason: Constipation Escitalopram Oxalate (Escitalopram Oxalate 20 Mg Tablet) 20 mg PO DAILY [facility] Last Admin: 12/08/20 11:16 Dose: 20 mg Documented by: ANISHA Famotidine (Famotidine 20 Mg Tablet) 40 mg PO BID [facility] Last Admin: 12/08/20 11:17 Dose: 40 mg Documented by: ANISHA Glucose (Glucose Gel 15 Gm Gel..Gram.) 15 gm PO Q15M PRN; Protocol PRN Reason: per Hypoglycemia Standing Ord. Guaifenesin/Dextromethorphan (Guaifenesin Dm 200/20/10 Ml 10 Ml Syrup) 10 ml PO Q6H PRN PRN Reason: cough Heparin Sodium (Porcine) (Heparin Sodium,Porcine 5,000 Unit/Ml Vial) 5,000 unit SUBCUT Q12H [facility] Last Admin: 12/08/20 11:18 Dose: 5,000 unit Documented by: ANISHA Insulin Glargine (Insulin Glargine,Hum.Rec.Anlog 100 Unit/Ml 10 Ml Vial) 20 unit SUBCUT BEDTIME [facility] Last Admin: 12/07/20 19:41 Dose: 20 unit Documented by: AARON Insulin Human Lispro (Insulin Lispro 100 Unit/Ml 3 Ml Vial) 0 unit SUBCUT QIDACHS [facility]; Protocol Last Admin: 12/08/20 11:25 Dose: 4 unit Documented by: ANISHA Methylprednisolone Sodium Succinate (Methylprednisolone Sod Succ 40 Mg/Ml Vial) 40 mg IVPUSH DAILY [facility] Last Admin: 12/08/20 11:19 Dose: 40 mg Documented by: ANISHA Ondansetron HCl (Ondansetron Hcl 4 Mg/2 Ml Vial) 4 mg IVPUSH Q8H PRN PRN Reason: Nausea and Vomiting Pioglitazone HCl (Pioglitazone Hcl 15 Mg Tablet) 15 mg PO DAILY [facility] Last Admin: 12/08/20 11:15 Dose: 15 mg Documented by: ANISHA Sodium Chloride (0.9 % Sodium Chloride Flush 3 Ml Syringe) 3 ml IVFLUSH QSHIFT [facility] Last Admin: 12/08/20 11:19 Dose: 3 ml Documented by: ANISHA Vitamin D (Cholecalciferol (Vitamin D3) 25 Mcg Tablet) 50 mcg PO DAILY [facility] Last Admin: 12/08/20 11:16 Dose: 50 mcg Documented by: ANISHA Zinc Sulfate (Zinc Sulfate 220 Mg Capsule) 220 mg PO DAILY [facility] Last Admin: 12/08/20 11:15 Dose: 220 mg Documented by: ANISHA Labs CBC & Chem 7: 12/08/20 06:28 12/08/20 06:28 Labs: Laboratory Results - last 24 hr 12/07/20 12/07/20 12/08/20 15:45 19:35 06:28 MCV 82.7 MCH 27.2 MCHC 32.9 RDW 14.5 Plt Count 174 D MPV 12.2 Absolute Nucleated RBC 0.000 Nucleated RBC % (auto) 0.0 Anion Gap Estim Creat Clear Calc Estimated GFR POC Glucose 294 H 357 H* Random Glucose Calcium 12/08/20 12/08/20 12/08/20 06:28 07:28 11:08 MCV MCH MCHC RDW Plt Count MPV Absolute Nucleated RBC Nucleated RBC % (auto) Anion Gap 14 Estim Creat Clear Calc 63.3 Estimated GFR 49 POC Glucose 100 151 H Random Glucose 110 Calcium 8.9 Assessment and Plan (1) Acute respiratory failure with hypoxemia: Status: Acute (2) Hyperkalemia: Status: Acute (3) Pneumonia due to 2019-nCoV: Status: Acute (4) Type 2 diabetes mellitus with hyperglycemia: Status: Acute (5) Hypercholesterolemia: Status: Acute Assessment and Plan: 50-year-old female unvaccinated presents to the hospital with complaints of shortness of breath found to have COVID-19 pneumonia with viral sepsis # Acute hypoxic respiratory failure d/t covid 19 ?? Significant improvement overnight, now on 15 L of oxygen (high flow discontinued) ?? denies shortness of breath ,denies cough, no fever, chills, no other ov ernight acute issues overnight ?? patient following frequent position change, out of bed to chair and using incentive spirometery ?? completed 10 days of Dexamethasone,? completed 5 days of? remdesivir, continue Pepcid 40 b.i.d. , continue vitamin C, and zinc, continue cough medication, on IV steroid 40mg daily, will cut down to IV steroids 20 mg daily CRP 0.16 trended down from 13.08, LDH 867 down to 492 ?? Will continue to titrate oxygen as tolerated possible discharge home once oxygen requirement 5 L obtain home O2 eval prior to discharge # Hypertension--noted to have soft blood pressures on Norvasc and atenolol, therefore Norvasc discontinued, continue atenolol and follow BP, losartan? held on admission due to PEREZ #PEREZ--now resolved was likely pre renal , avoid nephrotoxins # hyperkalemia? potassium elevated intermittently, likely due to hyperglycemia, will give Kayexalate, continue to hold losartan #Diabetes--elevated blood sugars due to steroid, added Lantus and sliding scale,continue Actos, ,at home takes metformin and Actos, follow blood sugar closely while steroids are being tapered. # Anxiety and depression continue home medications # Hyperlipidemia ? continue lipitor DVT prophylaxis Heparin subQ Quality Stroke Does the patient have a stroke diagnosis?: No VTE Prior VTE?: No VTE Risk Level:: Medical - moderate - high VTE Device Contraindication: Treatment Not Indicated VTE Drug Contraindication: N/A - Med Ordered
[2020-12-08 16:32] LABS: Glucose, Whole Blood 239 mg/dL (60-115)
--- NOTE | 2020-12-08 16:51 | PC.NURSE ---
Upon reviewing tele with [employer], noticed pt had ST/SVT for ~9sec. Because it was in the past unsure if pt was moving or what she had been doing at that moment. Pt currently denies feeling any cardiac symptoms at that time or now. MD aware and discussed to continue to monitor and update if any reoccurance or chnage. Pt faye FORBES w BBB HR 70-90
[2020-12-08 20:59] LABS: Glucose, Whole Blood 270 mg/dL (60-115)
[2020-12-08] MEDS: Insulin Glargine,Hum.rec.anlog 100 UNIT/ML 10 ML VIAL 20 UNIT SUBCUT (22:44)
[2020-12-09] VITALS (7 sets, daily range): BP systolic 111–133; BP diastolic 67–84; PULSE 54–65; RESP 19–22; TEMP 36.1–37; O2SAT 90–98
[2020-12-09 07:48] LABS: Anion Gap 12 (12-20); Blood Urea Nitrogen 29 mg/dL (9-16); Calcium 8.5 mg/dL (8.4-10.2); Carbon Dioxide 27 mmol/L (22-29); Chloride 102 mmol/L (96-108); Creatinine Clr Calc Pharmacy 81.7; Estimated Glomerular Filt Rate > 60; Glucose Random 86 mg/dL (60-115); Potassium 4.8 mmol/L (3.3-5.1); Sodium 136 mmol/L (135-145)
[2020-12-09 07:58] LABS: Glucose, Whole Blood 93 mg/dL (60-115)
[2020-12-09] MEDS: atenoloL 50 MG TABLET PO (08:53)
[2020-12-09] MEDS: Aspirin Enteric Coated 81 MG TABLET.DR PO (08:53)
[2020-12-09] MEDS: Famotidine 20 MG TABLET 40 MG PO ×2 (08:53→21:28)
[2020-12-09] MEDS: Zinc Sulfate 220 MG CAPSULE PO (08:53)
[2020-12-09] MEDS: methylPREDNISolone Sod Succ 40 MG/ML VIAL 20 MG IVPUSH (08:53)
[2020-12-09] MEDS: Atorvastatin Calcium 10 MG TABLET PO (08:53)
[2020-12-09] MEDS: Cholecalciferol (Vitamin D3) 25 MCG TABLET 50 MCG PO (08:53)
[2020-12-09] MEDS: Heparin Sodium,Porcine 5,000 UNIT/ML VIAL 5000 UNIT SUBCUT ×2 (08:54→21:30)
[2020-12-09] MEDS: 0.9 % Sodium Chloride Flush 3 ML SYRINGE IVFLUSH ×3 (08:54→21:40)
[2020-12-09] MEDS: Ascorbic Acid 500 MG TABLET PO (08:56)
--- NOTE | 2020-12-09 10:12 | HO.PM.IMPN ---
Subjective Subjective Date of Service: 12/09/20 Interval History: Seen in follow-up for acute hypoxic respiratory failure due to COVID-19 with prune hospitalization and slow to wean. Overall the patient is doing much better than previously have been weaned from 15 L overnight to presently 11 L. She feels otherwise good. Review of Systems No fever No shortness of breath Physical Exam Vital Signs: Vital Signs: Last Vital Signs Temp 97.0 F 12/09/20 08:00 Pulse 65 12/09/20 08:00 Resp 20 12/09/20 08:00 BP 120/67 12/09/20 08:00 Pulse Ox 90 L 12/09/20 08:00 Body Mass Index 26.0 General: AO X 3, no acute distress Resp: Diminished breath sound bilaterally, no accessory muscle use. No difficulty breathing. CVS: S1,S2,RRR GI: +BS, NT, no distention Skin: No rash Neuro: motor grossly intact Psych: appropriate affect Objective Data Active Medications Acetaminophen (Acetaminophen 325 Mg Tablet) 650 mg PO Q6H PRN PRN Reason: Pain, Mild (Pain Scale 1-3) Albuterol Sulfate (Albuterol Sulfate 90 Mcg 8 Gm Inhaler) 4 puff INHALE Q3H PRN PRN Reason: Shortness of Breath/Wheezing Ascorbic Acid (Ascorbic Acid 500 Mg Tablet) 500 mg PO DAILY [facility] Last Admin: 12/09/20 08:56 Dose: 500 mg Documented by: ACE Aspirin (Aspirin Enteric Coated 81 Mg Tablet.) 81 mg PO DAILY [facility] Last Admin: 12/09/20 08:53 Dose: 81 mg Documented by: ACE Atenolol (Atenolol 50 Mg Tablet) 50 mg PO DAILY [facility]; Protocol Last Admin: 12/09/20 08:53 Dose: 50 mg Documented by: ACE Atorvastatin Calcium (Atorvastatin Calcium 10 Mg Tablet) 10 mg PO DAILY [facility] Last Admin: 12/09/20 08:53 Dose: 10 mg Documented by: ACE Dextrose (Dextrose 50 % 25 Gm/50 Ml Vial) 25 gm IVPUSH Q15M PRN; Protocol PRN Reason: per Hypoglycemia Standing Ord. Divalproex Sodium (Divalproex Sodium 500 Mg Tablet.) 500 mg PO BID [facility] Last Admin: 12/09/20 08:54 Dose: Not Given Documented by: ACE Non-Admin Reason: Patient Refused Docusate Sodium (Docusate Sodium 100 Mg Capsule) 100 mg PO DAILY PRN PRN Reason: Constipation Escitalopram Oxalate (Escitalopram Oxalate 20 Mg Tablet) 20 mg PO DAILY [facility] Last Admin: 12/09/20 09:11 Dose: Not Given Documented by: ACE Non-Admin Reason: Patient Refused Famotidine (Famotidine 20 Mg Tablet) 40 mg PO BID [facility] Last Admin: 12/09/20 08:53 Dose: 40 mg Documented by: ACE Glucose (Glucose Gel 15 Gm Gel..Gram.) 15 gm PO Q15M PRN; Protocol PRN Reason: per Hypoglycemia Standing Ord. Guaifenesin/Dextromethorphan (Guaifenesin Dm 200/20/10 Ml 10 Ml Syrup) 10 ml PO Q6H PRN PRN Reason: cough Heparin Sodium (Porcine) (Heparin Sodium,Porcine 5,000 Unit/Ml Vial) 5,000 unit SUBCUT Q12H [facility] Last Admin: 12/09/20 08:54 Dose: 5,000 unit Documented by: ACE Insulin Glargine (Insulin Glargine,Hum.Rec.Anlog 100 Unit/Ml 10 Ml Vial) 20 unit SUBCUT BEDTIME [facility] Last Admin: 12/08/20 22:44 Dose: 20 unit Documented by: FABRIZIO Insulin Human Lispro (Insulin Lispro 100 Unit/Ml 3 Ml Vial) 0 unit SUBCUT QIDACHS [facility]; Protocol Last Admin: 12/09/20 08:13 Dose: Not Given Documented by: ACE Non-Admin Reason: No Insulin Coverage Methylprednisolone Sodium Succinate (Methylprednisolone Sod Succ 40 Mg/Ml Vial) 20 mg IVPUSH DAILY [facility] Last Admin: 12/09/20 08:53 Dose: 20 mg Documented by: ACE Ondansetron HCl (Ondansetron Hcl 4 Mg/2 Ml Vial) 4 mg IVPUSH Q8H PRN PRN Reason: Nausea and Vomiting Pioglitazone HCl (Pioglitazone Hcl 15 Mg Tablet) 15 mg PO DAILY [facility] Last Admin: 12/09/20 08:53 Dose: 15 mg Documented by: ACE Sodium Chloride (0.9 % Sodium Chloride Flush 3 Ml Syringe) 3 ml IVFLUSH QSHIFT [facility] Last Admin: 12/09/20 08:54 Dose: 3 ml Documented by: ACE Vitamin D (Cholecalciferol (Vitamin D3) 25 Mcg Tablet) 50 mcg PO DAILY [facility] Last Admin: 12/09/20 08:53 Dose: 50 mcg Documented by: ACE Zinc Sulfate (Zinc Sulfate 220 Mg Capsule) 220 mg PO DAILY [facility] Last Admin: 12/09/20 08:53 Dose: 220 mg Documented by: ACE Labs CBC & Chem 7: 12/08/20 06:28 12/09/20 06:41 Labs: Laboratory Results - last 24 hr 12/08/20 12/08/20 12/08/20 11:08 16:10 20:42 Anion Gap Estim Creat Clear Calc Estimated GFR POC Glucose 151 H 239 H 270 H Random Glucose Calcium 12/09/20 12/09/20 06:41 07:50 Anion Gap 12 Estim Creat Clear Calc 81.7 Estimated GFR > 60 POC Glucose 93 Random Glucose 86 Calcium 8.5 Assessment and Plan (1) Acute respiratory failure with hypoxemia: Status: Acute (2) Hyperkalemia: Status: Acute (3) Pneumonia due to 2019-nCoV: Status: Acute (4) Type 2 diabetes mellitus with hyperglycemia: Status: Acute (5) Hypercholesterolemia: Status: Acute Assessment and Plan: 50-year-old female unvaccinated presents to the hospital with complaints of shortness of breath found to have COVID-19 pneumonia with viral sepsis # Acute hypoxic respiratory failure d/t covid 19 ?? Significant improvement overnight, now on 11 L of oxygen (high flow discontinued) ?? denies shortness of breath ,denies cough, no fever, chills, no other overnight acute issues overnight ?? patient following frequent position change, out of bed to chair and using incentive spirometery ?? completed 10 days of Dexamethasone,? completed 5 days of? remdesivir, continue Pepcid 40 b.i.d. , continue vitamin C, and zinc, continue cough medication, on IV steroid 40mg daily, will cut down to IV steroids 20 mg daily CRP 0.16 trended down from 13.08, LDH 867 down to 492 ?? Will continue to titrate oxygen as tolerated possible discharge home once oxygen requirement 5 L obtain home O2 eval prior to discharge # Hypertension--noted to have soft blood pressures on Norvasc and atenolol, therefore Norvasc discontinued, continue atenolol and follow BP, losartan? held on admission due to PEREZ #PEREZ--now resolved was likely pre renal , avoid nephrotoxins # hyperkalemia? potassium elevated intermittently, likely due to hyperglycemia, will give Kayexalate, continue to hold losartan #Diabetes--elevated blood sugars due to steroid, added Lantus and sliding scale,continue Actos, ,at home takes metformin and Actos, follow blood sugar closely while steroids are being tapered. # Anxiety and depression continue home medications # Hyperlipidemia ? continue lipitor DVT prophylaxis Heparin subQ Quality Stroke Does the patient have a stroke diagnosis?: No VTE Prior VTE?: No VTE Risk Level:: Medical - moderate - high VTE Device Contraindication: Treatment Not Indicated VTE Drug Contraindication: N/A - Med Ordered
[2020-12-09 11:03] LABS: Glucose, Whole Blood 188 mg/dL (60-115)
[2020-12-09] MEDS: Insulin Lispro 100 UNIT/ML 3 ML VIAL SUBCUT ×3 (11:49→21:28)
--- NOTE | 2020-12-09 16:31 | MHC.CM.PN ---
Female 50 DX Covid. No discharge today. Patient continues to require supplemental O2. She is now on <10L
[2020-12-09 19:23] LABS: Glucose, Whole Blood 250 mg/dL (60-115)
[2020-12-09 20:16] LABS: Glucose, Whole Blood 223 mg/dL (60-115)
[2020-12-09] MEDS: Insulin Glargine,Hum.rec.anlog 100 UNIT/ML 10 ML VIAL 20 UNIT SUBCUT (21:29)
[2020-12-10] VITALS (10 sets, daily range): BP systolic 100–151; BP diastolic 56–77; PULSE 59–82; RESP 18–20; TEMP 36.1–36.7; O2SAT 83–99
--- NOTE | 2020-12-10 01:32 | PC.NURSE ---
Addendum entered by Margaret Shrestha RN 12/10/20 06:40: Pt desatted to mid-80s while sleeping in recliner this morning. Turned O2 up to 6L, pt now satting 92%. Will wean back down as tolerated to goal of >90% O2 sat. Original Note: Pt satting 98% on 8L of O2.Able to wean pt down to 5L at 01:15 this morning. Pt remains at 90-93% on 5L O2 while sleeping.
--- NOTE | 2020-12-10 04:21 | P.PNIM_ITS ---
Subjective Subjective Date of Service: 12/10/20 Interval History: Seen in follow-up for acute hypoxic respiratory failure due to COVID-19 with prune hospitalization and slow to wean. Overall has been doing much better the last 24 to 48 hours as she continues to wean, over down to 5 Review of Systems no fever no sob Physical Exam Vital Signs: Vital Signs: Last Vital Signs Temp 97.4 F 12/10/20 03:39 Pulse 67 12/10/20 03:39 Resp 20 12/10/20 03:39 BP 100/56 L 12/10/20 03:39 Pulse Ox 90 L 12/10/20 03:39 Body Mass Index 26.0 Const: Other: General: AO X 3, no acute distress Resp: no wheeze, diminish, no accessory muslc use CVS: S1,S2,RRR GI: +BS, NT, no distention Skin: No rash Neuro: motor grossly intact Psych: appropriate affect Objective Data Active Medications Acetaminophen (Acetaminophen 325 Mg Tablet) 650 mg PO Q6H PRN PRN Reason: Pain, Mild (Pain Scale 1-3) Albuterol Sulfate (Albuterol Sulfate 90 Mcg 8 Gm Inhaler) 4 puff INHALE Q3H PRN PRN Reason: Shortness of Breath/Wheezing Ascorbic Acid (Ascorbic Acid 500 Mg Tablet) 500 mg PO DAILY [facility] Last Admin: 12/09/20 08:56 Dose: 500 mg Documented by: ACE Aspirin (Aspirin Enteric Coated 81 Mg Tablet.) 81 mg PO DAILY [facility] Last Admin: 12/09/20 08:53 Dose: 81 mg Documented by: ACE Atenolol (Atenolol 50 Mg Tablet) 50 mg PO DAILY [facility]; Protocol Last Admin: 12/09/20 08:53 Dose: 50 mg Documented by: ACE Atorvastatin Calcium (Atorvastatin Calcium 10 Mg Tablet) 10 mg PO DAILY [facility] Last Admin: 12/09/20 08:53 Dose: 10 mg Documented by: ACE Dextrose (Dextrose 50 % 25 Gm/50 Ml Vial) 25 gm IVPUSH Q15M PRN; Protocol PRN Reason: per Hypoglycemia Standing Ord. Divalproex Sodium (Divalproex Sodium 500 Mg Tablet.) 500 mg PO BID [facility] Last Admin: 12/09/20 21:16 Dose: Not Given Documented by: HORTENCIA Non-Admin Reason: Patient Refused Docusate Sodium (Docusate Sodium 100 Mg Capsule) 100 mg PO DAILY PRN PRN Reason: Constipation Escitalopram Oxalate (Escitalopram Oxalate 20 Mg Tablet) 20 mg PO DAILY [facility] Last Admin: 12/09/20 09:11 Dose: Not Given Documented by: ACE Non-Admin Reason: Patient Refused Famotidine (Famotidine 20 Mg Tablet) 40 mg PO BID [facility] Last Admin: 12/09/20 21:28 Dose: 40 mg Documented by: HORTENCIA Glucose (Glucose Gel 15 Gm Gel..Gram.) 15 gm PO Q15M PRN; Protocol PRN Reason: per Hypoglycemia Standing Ord. Guaifenesin/Dextromethorphan (Guaifenesin Dm 200/20/10 Ml 10 Ml Syrup) 10 ml PO Q6H PRN PRN Reason: cough Heparin Sodium (Porcine) (Heparin Sodium,Porcine 5,000 Unit/Ml Vial) 5,000 unit SUBCUT Q12H [facility] Last Admin: 12/09/20 21:30 Dose: 5,000 unit Documented by: HORTENCIA Insulin Glargine (Insulin Glargine,Hum.Rec.Anlog 100 Unit/Ml 10 Ml Vial) 20 unit SUBCUT BEDTIME [facility] Last Admin: 12/09/20 21:29 Dose: 20 unit Documented by: HORTENCIA Insulin Human Lispro (Insulin Lispro 100 Unit/Ml 3 Ml Vial) 0 unit SUBCUT QIDACHS [facility]; Protocol Last Admin: 12/09/20 21:28 Dose: 8 unit Documented by: HORTENCIA Methylprednisolone Sodium Succinate (Methylprednisolone Sod Succ 40 Mg/Ml Vial) 20 mg IVPUSH DAILY [facility] Last Admin: 12/09/20 08:53 Dose: 20 mg Documented by: ACE Ondansetron HCl (Ondansetron Hcl 4 Mg/2 Ml Vial) 4 mg IVPUSH Q8H PRN PRN Reason: Nausea and Vomiting Pioglitazone HCl (Pioglitazone Hcl 15 Mg Tablet) 15 mg PO DAILY [facility] Last Admin: 12/09/20 08:53 Dose: 15 mg Documented by: ACE Sodium Chloride (0.9 % Sodium Chloride Flush 3 Ml Syringe) 3 ml IVFLUSH QSHIFT [facility] Last Admin: 12/09/20 21:40 Dose: 3 ml Documented by: HORTENCIA Vitamin D (Cholecalciferol (Vitamin D3) 25 Mcg Tablet) 50 mcg PO DAILY [facility] Last Admin: 12/09/20 08:53 Dose: 50 mcg Documented by: ACE Zinc Sulfate (Zinc Sulfate 220 Mg Capsule) 220 mg PO DAILY [facility] Last Admin: 12/09/20 08:53 Dose: 220 mg Documented by: ACE Labs CBC & Chem 7: 12/08/20 06:28 12/09/20 06:41 Labs: Laboratory Results - last 24 hr 12/09/20 12/09/20 12/09/20 06:41 07:50 10:50 Anion Gap 12 Estim Creat Clear Calc 81.7 Estimated GFR > 60 POC Glucose 93 188 H Random Glucose 86 Calcium 8.5 12/09/20 12/09/20 16:05 19:45 Anion Gap Estim Creat Clear Calc Estimated GFR POC Glucose 250 H 223 H Random Glucose Calcium Assessment and Plan (1) Acute respiratory failure with hypoxemia: Status: Acute (2) Hyperkalemia: Status: Acute (3) Pneumonia due to 2019-nCoV: Status: Acute (4) Type 2 diabetes mellitus with hyperglycemia: Status: Acute (5) Hypercholesterolemia: Status: Acute Assessment and Plan: 50-year-old female unvaccinated presents to the hospital with complaints of shortness of breath found to have COVID-19 pneumonia with viral sepsis # Acute hypoxic respiratory failure d/t covid 19 ?? Significant improvement overnight, now on 5 L of oxygen by nasal canula and sating 90 or better ?? denies shortness of breath ,denies cough, no fever, chills, no other overnight acute issues overnight ?? patient following frequent position change, out of bed to chair and using in centive spirometery ?? completed 10 days of Dexamethasone,? completed 5 days of? remdesivir, continu e Pepcid 40 b.i.d. , continue vitamin C, and zinc, continue cough medication, change IV steroid to prednisone 20 daily and rapidly wean off CRP 0.16 trended down from 13.08, LDH 867 down to 492 ?? Will continue to titrate oxygen as tolerated possible discharge home once oxygen requirement 5 L obtain home O2 eval prior to discharge # Hypertension--noted to have soft blood pressures on Norvasc and atenolol, therefore Norvasc discontinued, continue atenolol and follow BP, losartan? held on admission due to PEREZ #PEREZ--now resolved was likely pre renal , avoid nephrotoxins # hyperkalemia? potassium elevated intermittently, likely due to hyperglycemia, will give Kayexalate, continue to hold losartan #Diabetes--elevated blood sugars due to steroid, continue Lantus and sliding scale,continue Actos, ,at home takes metformin and Actos, follow blood sugar closely while steroids are being tapered. # Anxiety and depression continue home medications # Hyperlipidemia ? continue lipitor DVT prophylaxis Heparin subQ Quality Stroke Does the patient have a stroke diagnosis?: No VTE Prior VTE?: No VTE Risk Level:: Medical - moderate - high VTE Device Contraindication: Treatment Not Indicated VTE Drug Contraindication: N/A - Med Ordered
[2020-12-10 07:34] LABS: Glucose, Whole Blood 67 mg/dL (60-115)
[2020-12-10] MEDS: Famotidine 20 MG TABLET 40 MG PO ×2 (09:23→20:53)
[2020-12-10] MEDS: Ascorbic Acid 500 MG TABLET PO (09:24)
[2020-12-10] MEDS: atenoloL 50 MG TABLET PO (09:24)
[2020-12-10] MEDS: Aspirin Enteric Coated 81 MG TABLET.DR PO (09:24)
[2020-12-10] MEDS: Zinc Sulfate 220 MG CAPSULE PO (09:25)
[2020-12-10] MEDS: Escitalopram Oxalate 20 MG TABLET PO (09:25)
[2020-12-10] MEDS: Cholecalciferol (Vitamin D3) 25 MCG TABLET 50 MCG PO (09:25)
[2020-12-10] MEDS: predniSONE 10 MG TABLET PO (09:25)
[2020-12-10] MEDS: Atorvastatin Calcium 10 MG TABLET PO (09:26)
[2020-12-10] MEDS: Heparin Sodium,Porcine 5,000 UNIT/ML VIAL 5000 UNIT SUBCUT ×2 (09:27→20:53)
[2020-12-10] MEDS: 0.9 % Sodium Chloride Flush 3 ML SYRINGE IVFLUSH ×3 (09:30→20:55)
[2020-12-10 11:59] LABS: Glucose, Whole Blood 103 mg/dL (60-115)
[2020-12-10 16:04] LABS: Glucose, Whole Blood 205 mg/dL (60-115)
[2020-12-10] MEDS: Insulin Lispro 100 UNIT/ML 3 ML VIAL SUBCUT ×2 (17:08→20:55)
[2020-12-10 20:01] LABS: Glucose, Whole Blood 271 mg/dL (60-115)
[2020-12-10] MEDS: Insulin Glargine,Hum.rec.anlog 100 UNIT/ML 10 ML VIAL 20 UNIT SUBCUT (20:55)
[2020-12-11] VITALS (7 sets, daily range): BP systolic 104–139; BP diastolic 55–79; PULSE 64–71; RESP 19–20; TEMP 36.1–36.8; O2SAT 90–96
--- NOTE | 2020-12-11 06:10 | P.PNIM_ITS ---
Subjective Subjective Date of Service: 12/11/20 Interval History: f/u on hyoxia d/t covid, doing ok, O2 sat around 91 to 93 on 6 liter, no distresss Review of Systems Gen: no fever Resp: no sob, no cough CV: no chest, no BRANTLEY, no leg edema GI: No n/v, no abd pain Neuro: No confusion Physical Exam Vital Signs: Vital Signs: Last Vital Signs Temp 97.7 F 12/11/20 03:16 Pulse 64 12/11/20 03:16 Resp 19 12/11/20 03:16 BP 104/55 L 12/11/20 03:16 Pulse Ox 91 L 12/11/20 03:16 Body Mass Index 26.0 General: AO X 3, no acute distress Resp: CTA bilateral CVS: S1,S2,RRR GI: +BS, NT, no distention Skin: No rash Neuro: motor grossly intact Psych: appropriate affect Objective Data Active Medications Acetaminophen (Acetaminophen 325 Mg Tablet) 650 mg PO Q6H PRN PRN Reason: Pain, Mild (Pain Scale 1-3) Albuterol Sulfate (Albuterol Sulfate 90 Mcg 8 Gm Inhaler) 4 puff INHALE Q3H PRN PRN Reason: Shortness of Breath/Wheezing Ascorbic Acid (Ascorbic Acid 500 Mg Tablet) 500 mg PO DAILY [facility] Last Admin: 12/10/20 09:24 Dose: 500 mg Documented by: EMILY Aspirin (Aspirin Enteric Coated 81 Mg Tablet.) 81 mg PO DAILY [facility] Last Admin: 12/10/20 09:24 Dose: 81 mg Documented by: EMILY Atenolol (Atenolol 50 Mg Tablet) 50 mg PO DAILY [facility]; Protocol Last Admin: 12/10/20 09:24 Dose: 50 mg Documented by: EMILY Atorvastatin Calcium (Atorvastatin Calcium 10 Mg Tablet) 10 mg PO DAILY [facility] Last Admin: 12/10/20 09:26 Dose: 10 mg Documented by: EMILY Dextrose (Dextrose 50 % 25 Gm/50 Ml Vial) 25 gm IVPUSH Q15M PRN; Protocol PRN Reason: per Hypoglycemia Standing Ord. Divalproex Sodium (Divalproex Sodium 500 Mg Tablet.) 500 mg PO BID [facility] Last Admin: 12/10/20 20:49 Dose: Not Given Documented by: SLICK Non-Admin Reason: Patient Refused Docusate Sodium (Docusate Sodium 100 Mg Capsule) 100 mg PO DAILY PRN PRN Reason: Constipation Escitalopram Oxalate (Escitalopram Oxalate 20 Mg Tablet) 20 mg PO DAILY [facility] Last Admin: 12/10/20 09:25 Dose: 20 mg Documented by: EMILY Famotidine (Famotidine 20 Mg Tablet) 40 mg PO BID [facility] Last Admin: 12/10/20 20:53 Dose: 40 mg Documented by: SLICK Glucose (Glucose Gel 15 Gm Gel..Gram.) 15 gm PO Q15M PRN; Protocol PRN Reason: per Hypoglycemia Standing Ord. Guaifenesin/Dextromethorphan (Guaifenesin Dm 200/20/10 Ml 10 Ml Syrup) 10 ml PO Q6H PRN PRN Reason: cough Heparin Sodium (Porcine) (Heparin Sodium,Porcine 5,000 Unit/Ml Vial) 5,000 unit SUBCUT Q12H [facility] Last Admin: 12/10/20 20:53 Dose: 5,000 unit Documented by: SLICK Insulin Glargine (Insulin Glargine,Hum.Rec.Anlog 100 Unit/Ml 10 Ml Vial) 20 unit SUBCUT BEDTIME [facility] Last Admin: 12/10/20 20:55 Dose: 20 unit Documented by: SLICK Insulin Human Lispro (Insulin Lispro 100 Unit/Ml 3 Ml Vial) 0 unit SUBCUT QIDACHS [facility]; Protocol Last Admin: 12/10/20 20:55 Dose: 8 unit Documented by: SLICK Ondansetron HCl (Ondansetron Hcl 4 Mg/2 Ml Vial) 4 mg IVPUSH Q8H PRN PRN Reason: Nausea and Vomiting Pioglitazone HCl (Pioglitazone Hcl 15 Mg Tablet) 15 mg PO DAILY [facility] Last Admin: 12/10/20 09:26 Dose: 15 mg Documented by: EMILY Prednisone (Prednisone 10 Mg Tablet) 10 mg PO DAILY [facility] Last Admin: 12/10/20 09:25 Dose: 10 mg Documented by: EMILY Sodium Chloride (0.9 % Sodium Chloride Flush 3 Ml Syringe) 3 ml IVFLUSH QSHIFT [facility] Last Admin: 12/10/20 20:55 Dose: 3 ml Documented by: SLICK Vitamin D (Cholecalciferol (Vitamin D3) 25 Mcg Tablet) 50 mcg PO DAILY [facility] Last Admin: 12/10/20 09:25 Dose: 50 mcg Documented by: EMILY Zinc Sulfate (Zinc Sulfate 220 Mg Capsule) 220 mg PO DAILY [facility] Last Admin: 12/10/20 09:25 Dose: 220 mg Documented by: EMILY Labs CBC & Chem 7: 12/08/20 06:28 12/09/20 06:41 Labs: Laboratory Results - last 24 hr 12/10/20 12/10/20 12/10/20 07:29 11:54 15:56 POC Glucose 67 103 205 H 12/10/20 19:51 POC Glucose 271 H Assessment and Plan (1) Acute respiratory failure with hypoxemia: Status: Acute (2) Hyperkalemia: Status: Acute (3) Pneumonia due to 2019-nCoV: Status: Acute (4) Type 2 diabetes mellitus with hyperglycemia: Status: Acute (5) Hypercholesterolemia: Status: Acute Assessment and Plan: 50-year-old female unvaccinated presents to the hospital with complaints of shortness of breath found to have COVID-19 pneumonia with viral sepsis # Acute hypoxic respiratory failure d/t covid 19 ?? Significant improvement overnight, now on 5 L of oxygen by nasal canula and sating 90 or better ?? denies shortness of breath ,denies cough, no fever, chills, no other overnight acute issues overnight ?? patient following frequent position change, out of bed to chair and using incentive spirometery ?? completed 10 days of Dexamethasone,? completed 5 days of? remdesivir, continue Pepcid 40 b.i.d. , continue vitamin C, and zinc, continue cough medication, change IV steroid to prednisone 20 daily and rapidly wean off CRP 0.16 trended down from 13.08, LDH 867 down to 492 ?? Will continue to titrate oxygen as tolerated possible discharge home once oxygen requirement 5 L obtain home O2 eval prior to discharge # Hypertension--noted to have soft blood pressures on Norvasc and atenolol, therefore Norvasc discontinued, continue atenolol and follow BP, losartan? held on admission due to PEREZ #PEREZ--now resolved was likely pre renal , avoid nephrotoxins # hyperkalemia? potassium elevated intermittently, likely due to hyperglycemia, will give Kayexalate, continue to hold losartan #Diabetes--elevated blood sugars due to steroid, continue Lantus and sliding scale,continue Actos, ,at home takes metformin and Actos, follow blood sugar closely while steroids are being tapered. # Anxiety and depression continue home medications # Hyperlipidemia ? continue lipitor DVT prophylaxis Heparin subQ PT eval tomorrow for possible rehab Quality Stroke Does the patient have a stroke diagnosis?: No VTE Prior VTE?: No VTE Risk Level:: Medical - moderate - high VTE Device Contraindication: Treatment Not Indicated VTE Drug Contraindication: N/A - Med Ordered
[2020-12-11 07:47] LABS: Glucose, Whole Blood 69 mg/dL (60-115)
[2020-12-11] MEDS: Famotidine 20 MG TABLET 40 MG PO ×2 (08:07→21:07)
[2020-12-11] MEDS: atenoloL 50 MG TABLET PO (08:07)
[2020-12-11] MEDS: Zinc Sulfate 220 MG CAPSULE PO (08:08)
[2020-12-11] MEDS: predniSONE 10 MG TABLET PO (08:08)
[2020-12-11] MEDS: Aspirin Enteric Coated 81 MG TABLET.DR PO (08:08)
[2020-12-11] MEDS: Cholecalciferol (Vitamin D3) 25 MCG TABLET 50 MCG PO (08:08)
[2020-12-11] MEDS: Heparin Sodium,Porcine 5,000 UNIT/ML VIAL 5000 UNIT SUBCUT ×2 (08:09→21:07)
[2020-12-11] MEDS: Ascorbic Acid 500 MG TABLET PO (08:09)
[2020-12-11] MEDS: Atorvastatin Calcium 10 MG TABLET PO (08:09)
[2020-12-11] MEDS: Escitalopram Oxalate 20 MG TABLET PO (08:09)
[2020-12-11] MEDS: 0.9 % Sodium Chloride Flush 3 ML SYRINGE IVFLUSH ×3 (08:10→21:12)
[2020-12-11 11:35] LABS: Glucose, Whole Blood 165 mg/dL (60-115)
[2020-12-11] MEDS: Insulin Lispro 100 UNIT/ML 3 ML VIAL SUBCUT ×3 (12:03→21:07)
[2020-12-11 16:21] LABS: Glucose, Whole Blood 158 mg/dL (60-115)
[2020-12-11 20:00] LABS: Glucose, Whole Blood 206 mg/dL (60-115)
[2020-12-11] MEDS: Insulin Glargine,Hum.rec.anlog 100 UNIT/ML 10 ML VIAL 20 UNIT SUBCUT (21:08)
[2020-12-12] VITALS (10 sets, daily range): BP systolic 104–130; BP diastolic 61–79; PULSE 71–89; RESP 18–20; TEMP 36.1–36.7; O2SAT 85–98
[2020-12-12 07:29] LABS: Glucose, Whole Blood 99 mg/dL (60-115)
[2020-12-12] MEDS: Atorvastatin Calcium 10 MG TABLET PO (10:00)
[2020-12-12] MEDS: Heparin Sodium,Porcine 5,000 UNIT/ML VIAL 5000 UNIT SUBCUT ×2 (10:00→20:54)
[2020-12-12] MEDS: Cholecalciferol (Vitamin D3) 25 MCG TABLET 50 MCG PO (10:00)
[2020-12-12] MEDS: Aspirin Enteric Coated 81 MG TABLET.DR PO (10:00)
[2020-12-12] MEDS: predniSONE 10 MG TABLET PO (10:00)
[2020-12-12] MEDS: Zinc Sulfate 220 MG CAPSULE PO (10:00)
[2020-12-12] MEDS: Famotidine 20 MG TABLET 40 MG PO ×2 (10:00→20:55)
[2020-12-12] MEDS: atenoloL 50 MG TABLET PO (10:00)
[2020-12-12] MEDS: Escitalopram Oxalate 20 MG TABLET PO (10:00)
[2020-12-12] MEDS: Ascorbic Acid 500 MG TABLET PO (10:01)
[2020-12-12] MEDS: 0.9 % Sodium Chloride Flush 3 ML SYRINGE IVFLUSH ×3 (10:01→20:55)
--- NOTE | 2020-12-12 10:34 | P.PNIM_ITS ---
Subjective Subjective Date of Service: 12/12/20 Interval History: Seen in f/u for covid, hypoxic resp failure, making progress, still hreqiring oxygen Review of Systems no feve no sob Physical Exam Vital Signs: Vital Signs: Last Vital Signs Temp 96.9 F 12/12/20 07:53 Pulse 77 12/12/20 10:00 Resp 20 12/12/20 07:53 BP 130/79 12/12/20 10:00 Pulse Ox 95 12/12/20 09:50 Body Mass Index 26.0 General: AO X 3, no acute distress Resp: CTA bilateral CVS: S1,S2,RRR GI: +BS, NT, no distention Skin: No rash Neuro: motor grossly intact Psych: appropriate affect Objective Data Active Medications Acetaminophen (Acetaminophen 325 Mg Tablet) 650 mg PO Q6H PRN PRN Reason: Pain, Mild (Pain Scale 1-3) Albuterol Sulfate (Albuterol Sulfate 90 Mcg 8 Gm Inhaler) 4 puff INHALE Q3H PRN PRN Reason: Shortness of Breath/Wheezing Ascorbic Acid (Ascorbic Acid 500 Mg Tablet) 500 mg PO DAILY [facility] Last Admin: 12/12/20 10:01 Dose: 500 mg Documented by: JENNY Aspirin (Aspirin Enteric Coated 81 Mg Tablet.) 81 mg PO DAILY [facility] Last Admin: 12/12/20 10:00 Dose: 81 mg Documented by: JENNY Atenolol (Atenolol 50 Mg Tablet) 50 mg PO DAILY [facility]; Protocol Last Admin: 12/12/20 10:00 Dose: 50 mg Documented by: JENNY Atorvastatin Calcium (Atorvastatin Calcium 10 Mg Tablet) 10 mg PO DAILY [facility] Last Admin: 12/12/20 10:00 Dose: 10 mg Documented by: JENNY Dextrose (Dextrose 50 % 25 Gm/50 Ml Vial) 25 gm IVPUSH Q15M PRN; Protocol PRN Reason: per Hypoglycemia Standing Ord. Divalproex Sodium (Divalproex Sodium 500 Mg Tablet.) 500 mg PO BID [facility] Last Admin: 12/12/20 10:03 Dose: Not Given Documented by: JENNY Non-Admin Reason: Patient Refused Docusate Sodium (Docusate Sodium 100 Mg Capsule) 100 mg PO DAILY PRN PRN Reason: Constipation Escitalopram Oxalate (Escitalopram Oxalate 20 Mg Tablet) 20 mg PO DAILY [facility] Last Admin: 12/12/20 10:00 Dose: 20 mg Documented by: JENNY Famotidine (Famotidine 20 Mg Tablet) 40 mg PO BID [facility] Last Admin: 12/12/20 10:00 Dose: 40 mg Documented by: JENNY Glucose (Glucose Gel 15 Gm Gel..Gram.) 15 gm PO Q15M PRN; Protocol PRN Reason: per Hypoglycemia Standing Ord. Guaifenesin/Dextromethorphan (Guaifenesin Dm 200/20/10 Ml 10 Ml Syrup) 10 ml PO Q6H PRN PRN Reason: cough Heparin Sodium (Porcine) (Heparin Sodium,Porcine 5,000 Unit/Ml Vial) 5,000 unit SUBCUT Q12H [facility] Last Admin: 12/12/20 10:00 Dose: 5,000 unit Documented by: JENNY Insulin Glargine (Insulin Glargine,Hum.Rec.Anlog 100 Unit/Ml 10 Ml Vial) 20 unit SUBCUT BEDTIME [facility] Last Admin: 12/11/20 21:08 Dose: 20 unit Documented by: DESFATMATAA Insulin Human Lispro (Insulin Lispro 100 Unit/Ml 3 Ml Vial) 0 unit SUBCUT QIDACHS [facility]; Protocol Last Admin: 12/12/20 07:57 Dose: Not Given Documented by: JENNY Non-Admin Reason: No Insulin Coverage Ondansetron HCl (Ondansetron Hcl 4 Mg/2 Ml Vial) 4 mg IVPUSH Q8H PRN PRN Reason: Nausea and Vomiting Pioglitazone HCl (Pioglitazone Hcl 15 Mg Tablet) 15 mg PO DAILY [facility] Last Admin: 12/12/20 10:00 Dose: 15 mg Documented by: JENNY Prednisone (Prednisone 10 Mg Tablet) 10 mg PO DAILY [facility] Last Admin: 12/12/20 10:00 Dose: 10 mg Documented by: JENNY Sodium Chloride (0.9 % Sodium Chloride Flush 3 Ml Syringe) 3 ml IVFLUSH QSHIFT [facility] Last Admin: 12/12/20 10:01 Dose: 3 ml Documented by: JENNY Vitamin D (Cholecalciferol (Vitamin D3) 25 Mcg Tablet) 50 mcg PO DAILY [facility] Last Admin: 12/12/20 10:00 Dose: 50 mcg Documented by: JENNY Zinc Sulfate (Zinc Sulfate 220 Mg Capsule) 220 mg PO DAILY [facility] Last Admin: 12/12/20 10:00 Dose: 220 mg Documented by: JENNY Labs CBC & Chem 7: 12/08/20 06:28 12/09/20 06:41 Labs: Laboratory Results - last 24 hr 12/11/20 12/11/20 12/11/20 11:06 16:17 19:50 POC Glucose 165 H 158 H 206 H 12/12/20 07:22 POC Glucose 99 Assessment and Plan (1) Acute respiratory failure with hypoxemia: Status: Acute (2) Hyperkalemia: Status: Acute (3) Pneumonia due to 2019-nCoV: Status: Acute (4) Type 2 diabetes mellitus with hyperglycemia: Status: Acute (5) Hypercholesterolemia: Status: Acute Assessment and Plan: 50-year-old female unvaccinated presents to the hospital with complaints of shortness of breath found to have COVID-19 pneumonia with viral sepsis # Acute hypoxic respiratory failure d/t covid 19, slow to wean -completed DExa for 10 -completed Remdesevir -contineu pepcid 40 bid, vitc, Zinc -Prednisone for few more day -if get to around 5 liters, should get home O2 hemant or eval for pulmonary rehab # Hypertension--noted to have soft blood pressures on Norvasc and atenolol, therefore Norvasc discontinued, continue atenolol and follow BP, losartan? held on admission due to PEREZ #PEREZ--now resolved was likely pre renal , avoid nephrotoxins # hyperkalemia? potassium elevated intermittently, likely due to hyperglycemia, will give Kayexalate, continue to hold losartan #Diabetes--elevated blood sugars due to steroid, continue Lantus and sliding scale,continue Actos, ,at home takes metformin and Actos, follow blood sugar closely while steroids are being tapered. # Anxiety and depression continue home medications # Hyperlipidemia ? continue lipitor DVT prophylaxis Heparin subQ PT eval tomorrow for possible rehab Quality Stroke Does the patient have a stroke diagnosis?: No VTE Prior VTE?: No VTE Risk Level:: Medical - moderate - high VTE Device Contraindication: Treatment Not Indicated VTE Drug Contraindication: N/A - Med Ordered
[2020-12-12 11:24] LABS: Glucose, Whole Blood 199 mg/dL (60-115)
[2020-12-12] MEDS: Insulin Lispro 100 UNIT/ML 3 ML VIAL SUBCUT ×3 (12:11→20:55)
--- NOTE | 2020-12-12 12:38 | MHC.CM.PN ---
Female 50 Covid+ LOS Patient continues to require supplemental o2 at high rate. 15L
[2020-12-12 16:23] LABS: Glucose, Whole Blood 194 mg/dL (60-115)
[2020-12-12 20:09] LABS: Glucose, Whole Blood 213 mg/dL (60-115)
[2020-12-12] MEDS: Insulin Glargine,Hum.rec.anlog 100 UNIT/ML 10 ML VIAL 20 UNIT SUBCUT (20:55)
[2020-12-13] VITALS (7 sets, daily range): BP systolic 105–133; BP diastolic 59–76; PULSE 66–90; RESP 18–20; TEMP 36.1–36.7; O2SAT 91–96
[2020-12-13 02:27] LABS: Glucose, Whole Blood 69 mg/dL (60-115)
[2020-12-13 07:17] LABS: Glucose, Whole Blood 94 mg/dL (60-115)
[2020-12-13] MEDS: Atorvastatin Calcium 10 MG TABLET PO (08:44)
[2020-12-13] MEDS: Heparin Sodium,Porcine 5,000 UNIT/ML VIAL 5000 UNIT SUBCUT ×2 (08:44→21:20)
[2020-12-13] MEDS: atenoloL 50 MG TABLET PO (08:44)
[2020-12-13] MEDS: Ascorbic Acid 500 MG TABLET PO (08:44)
[2020-12-13] MEDS: Zinc Sulfate 220 MG CAPSULE PO (08:44)
[2020-12-13] MEDS: Escitalopram Oxalate 20 MG TABLET PO (08:44)
[2020-12-13] MEDS: predniSONE 10 MG TABLET PO (08:44)
[2020-12-13] MEDS: Cholecalciferol (Vitamin D3) 25 MCG TABLET 50 MCG PO (08:44)
[2020-12-13] MEDS: Famotidine 20 MG TABLET 40 MG PO ×2 (08:45→21:19)
[2020-12-13] MEDS: 0.9 % Sodium Chloride Flush 3 ML SYRINGE IVFLUSH ×3 (08:45→21:22)
[2020-12-13] MEDS: Aspirin Enteric Coated 81 MG TABLET.DR PO (08:45)
[2020-12-13 11:10] LABS: Glucose, Whole Blood 126 mg/dL (60-115)
--- NOTE | 2020-12-13 13:31 | P.PNIM_ITS ---
Subjective Subjective Date of Service: 12/13/20 Interval History: Acute hypoxemic respiratory failure secondary to COVID. Review of Systems Shortness of breath seems improving, Denies any chest pain abdominal pain or cough or phlegm or fever or chills. Physical Exam Vital Signs: Vital Signs: Last Vital Signs Temp 97.3 F 12/13/20 11:16 Pulse 67 12/13/20 11:16 Resp 18 12/13/20 11:16 BP 105/67 12/13/20 11:16 Pulse Ox 96 12/13/20 11:16 Body Mass Index 26.0 Physical exam: Appearance: not in distress.? Eyes: Pupils equal, round and reactive to light.? cvs: rrr, [id number] , no murmur res: air entry improving , few scattered rhonchii abd: no rebound or guarding ,nt, bs present. ext pulses present , no cyanosis ,Gait well balanced well coordinated. neuro: axo3 , nonfocal. Objective Data Active Medications Acetaminophen (Acetaminophen 325 Mg Tablet) 650 mg PO Q6H PRN PRN Reason: Pain, Mild (Pain Scale 1-3) Albuterol Sulfate (Albuterol Sulfate 90 Mcg 8 Gm Inhaler) 4 puff INHALE Q3H PRN PRN Reason: Shortness of Breath/Wheezing Ascorbic Acid (Ascorbic Acid 500 Mg Tablet) 500 mg PO DAILY [facility] Last Admin: 12/13/20 08:44 Dose: 500 mg Documented by: SETH Aspirin (Aspirin Enteric Coated 81 Mg Tablet.) 81 mg PO DAILY [facility] Last Admin: 12/13/20 08:45 Dose: 81 mg Documented by: SETH Atenolol (Atenolol 50 Mg Tablet) 50 mg PO DAILY [facility]; Protocol Last Admin: 12/13/20 08:44 Dose: 50 mg Documented by: SETH Atorvastatin Calcium (Atorvastatin Calcium 10 Mg Tablet) 10 mg PO DAILY [facility] Last Admin: 12/13/20 08:44 Dose: 10 mg Documented by: SETH Dextrose (Dextrose 50 % 25 Gm/50 Ml Vial) 25 gm IVPUSH Q15M PRN; Protocol PRN Reason: per Hypoglycemia Standing Ord. Divalproex Sodium (Divalproex Sodium 500 Mg Tablet.) 500 mg PO BID [facility] Last Admin: 12/13/20 09:17 Dose: Not Given Documented by: SETH Non-Admin Reason: Patient Refused Docusate Sodium (Docusate Sodium 100 Mg Capsule) 100 mg PO DAILY PRN PRN Reason: Constipation Escitalopram Oxalate (Escitalopram Oxalate 20 Mg Tablet) 20 mg PO DAILY [facility] Last Admin: 12/13/20 08:44 Dose: 20 mg Documented by: SETH Famotidine (Famotidine 20 Mg Tablet) 40 mg PO BID [facility] Last Admin: 12/13/20 08:45 Dose: 40 mg Documented by: SETH Glucose (Glucose Gel 15 Gm Gel..Gram.) 15 gm PO Q15M PRN; Protocol PRN Reason: per Hypoglycemia Standing Ord. Guaifenesin/Dextromethorphan (Guaifenesin Dm 200/20/10 Ml 10 Ml Syrup) 10 ml PO Q6H PRN PRN Reason: cough Heparin Sodium (Porcine) (Heparin Sodium,Porcine 5,000 Unit/Ml Vial) 5,000 unit SUBCUT Q12H [facility] Last Admin: 12/13/20 08:44 Dose: 5,000 unit Documented by: SETH Insulin Glargine (Insulin Glargine,Hum.Rec.Anlog 100 Unit/Ml 10 Ml Vial) 20 unit SUBCUT BEDTIME [facility] Last Admin: 12/12/20 20:55 Dose: 20 unit Documented by: QUIANA Insulin Human Lispro (Insulin Lispro 100 Unit/Ml 3 Ml Vial) 0 unit SUBCUT QIDACHS [facility]; Protocol Last Admin: 12/13/20 11:11 Dose: Not Given Documented by: SETH Non-Admin Reason: No Insulin Coverage Ondansetron HCl (Ondansetron Hcl 4 Mg/2 Ml Vial) 4 mg IVPUSH Q8H PRN PRN Reason: Nausea and Vomiting Pioglitazone HCl (Pioglitazone Hcl 15 Mg Tablet) 15 mg PO DAILY [facility] Last Admin: 12/13/20 08:44 Dose: 15 mg Documented by: SETH Prednisone (Prednisone 10 Mg Tablet) 10 mg PO DAILY [facility] Last Admin: 12/13/20 08:44 Dose: 10 mg Documented by: SETH Sodium Chloride (0.9 % Sodium Chloride Flush 3 Ml Syringe) 3 ml IVFLUSH QSHIFT [facility] Last Admin: 12/13/20 08:45 Dose: 3 ml Documented by: SETH Vitamin D (Cholecalciferol (Vitamin D3) 25 Mcg Tablet) 50 mcg PO DAILY [facility] Last Admin: 12/13/20 08:44 Dose: 50 mcg Documented by: SETH Zinc Sulfate (Zinc Sulfate 220 Mg Capsule) 220 mg PO DAILY [facility] Last Admin: 12/13/20 08:44 Dose: 220 mg Documented by: SETH Labs CBC & Chem 7: 12/08/20 06:28 12/09/20 06:41 Labs: Laboratory Results - last 24 hr 12/12/20 12/12/20 12/13/20 16:20 20:05 02:13 POC Glucose 194 H 213 H 69 12/13/20 12/13/20 07:08 11:06 POC Glucose 94 126 H Assessment and Plan (1) Acute respiratory failure with hypoxemia: Status: Acute Assessment and Plan: 50-year-old female unvaccinated presents to the hospital with complaints of shortness of breath found to have COVID-19 pneumonia with viral sepsis 1.Acute hypoxic respiratory failure d/t covid 19, slow to wean completed? DExa and completed Remdesevir contineu pepcid 40 bid, vitc, Zinc Prednisone for few more day, taper oxygen,when get to around 5 liters, should get home O2 hemant or eval for pulmonary rehab 2. Hypertension--noted to have soft blood pressures on Norvasc and atenolol, therefore Norvasc discontinued, continue atenolol and follow BP, ?? losartan? held on admission due to PEREZ 3.PEREZ--now resolved was likely pre renal , avoid nephrotoxins 4. hyperkalemia? potassium elevated intermittently, likely due to hyperglycemia, will give? Kayexalate, continue to hold losartan 5.Diabetes--elevated blood sugars due to steroid, continue Lantus and sliding scale,continue Actos, ,at home takes metformin and Actos, follow blood sugar closely while steroids are being tapered. 6. Anxiety and depression continue estalopram 7. Hyperlipidemia: continue lipitor DVT prophylaxis Heparin subQ Quality Stroke Does the patient have a stroke diagnosis?: No VTE Prior VTE?: No VTE Risk Level:: Medical - moderate - high VTE Device Contraindication: Treatment Not Indicated VTE Drug Contraindication: N/A - Med Ordered
[2020-12-13 16:12] LABS: Glucose, Whole Blood 203 mg/dL (60-115)
[2020-12-13] MEDS: Insulin Lispro 100 UNIT/ML 3 ML VIAL SUBCUT ×2 (16:56→21:20)
[2020-12-13 20:03] LABS: Glucose, Whole Blood 195 mg/dL (60-115)
[2020-12-13] MEDS: Insulin Glargine,Hum.rec.anlog 100 UNIT/ML 10 ML VIAL 20 UNIT SUBCUT (21:20)
[2020-12-14] VITALS (8 sets, daily range): BP systolic 103–152; BP diastolic 60–92; PULSE 66–86; RESP 18–20; TEMP 36.1–36.9; O2SAT 90–99
[2020-12-14 07:57] LABS: Glucose, Whole Blood 79 mg/dL (60-115)
--- NOTE | 2020-12-14 09:25 | PM.CNPUL ---
History of Present Illness History of Present Illness Consult date: 12/14/20 Chief complaint: Covid 19 PNA Narrative: This is an inpatient Pulmonary consultation. The patient is a 50-year-old woman presenting to the hospital in November 2020 with severe COVID. The patient has had slow recovery she is status post Decadron and ring this severe. She had been able to wean down to about 5-6 L. Although she would desaturate very quickly with minimal activity. The patient has been discussions for potential rehab or being discharged home on oxygen. However, this morning the patient was found to be significantly hypoxic. Apparently she was waiting to go to the bathroom and she could awaiting longer so therefore she went on her own. She has also been complaining of significant nasal congestion and plugging her nose and does not feel like she is getting enough oxygen through her nasal passages. Therefore she was switched over to a non-rebreather and her oxygenation improved to about 96%. She does not feel any worse she feels actually like she is getting better still. Denies any chest pains or palpitations or coughing. Even with a non-rebreather she is not wearing it because she feels claustrophobic and is causing her to get more dry. Therefore, will have her try Ventimask dizzy become have her pulse ox above 90% and also will request a chest x-ray. If we cannot titrate down the oxygen then will get a blood gas to see if there is any changes. Review of Systems Constitutional: Constitutional: Denies night sweats ENT: Denies change in voice, Denies lip swelling, Denies mouth pain, Reports nasal congestion, Reports nasal discharge and Denies tongue swelling Cardiovascular: Cardiovascular: Denies chest pain, Reports leg edema and Reports dyspnea on exertion Respiratory: Respiratory: Reports dyspnea on exertion Gastrointestinal: Gastrointestinal: Denies abdominal pain Musculoskeletal: Musculoskeletal: Denies no additional musculoskeletal complaints Neurologic: Denies Neuro-related abnormal movements Psychiatric: Psychiatric: Denies no additional psychiatric complaints Hematologic/Lymphatic: Hematologic/Lymphatic: Denies easy bleeding and Denies lymphadenopathy Allergic/Immunologic: Allergic/Immunologic: Denies lip swelling and Denies tongue swelling PMFSH Past Medical History Medical History Acute meniscal tear of right knee Anxiety and depression Bilateral carpal tunnel syndrome Diabetic nephropathy Diabetic nephropathy associated with type 2 diabetes mellitus Diabetic neuropathy associated with type 2 diabetes mellitus GERD (gastroesophageal reflux disease) Hypercholesterolemia Hypertension Insomnia Obesity (BMI 30-39.9) Osteoarthritis Psoriasis Right thyroid nodule Type 2 diabetes mellitus with hyperglycemia Family History Family History Father Medical history unknown Mother Diabetes Hypertension Maternal Grandmother Pancreatic cancer Maternal Aunt Breast cancer Sister Breast cancer Other Substance use disorder Surgical History Surgical History History of section History of cholecystectomy History of D&C History of tubal ligation Social History Social History Household Members: Family Housing: Apartment Do you presently have visiting nurse or other home services: No Alcohol intake: never Patient Tobacco Use Status: Never used Tobacco e-Cigarette/Vaping Use: Never Used Second Hand Smoke Exposure: Yes service: No Current occupational status: disabled Meds Allergies Allergy/AdvReac Type Severity Reaction Status Date / Time egg Allergy Unknown throat Verified 11/10/20 08:40 swells up lisinopril Allergy Unknown Unknown Verified 11/10/20 08:40 metformin [METFORMIN] Allergy Unknown TACHYCARDIA Verified 11/10/20 08:40 AND DIARRHEA milk Allergy Unknown throat Verified 11/10/20 08:40 swells up Active Medications: Current Medications Acetaminophen (Acetaminophen 325 Mg Tablet) 650 mg PO Q6H PRN PRN Reason: Pain, Mild (Pain Scale 1-3) Albuterol Sulfate (Albuterol Sulfate 90 Mcg 8 Gm Inhaler) 4 puff INHALE Q3H PRN PRN Reason: Shortness of Breath/Wheezing Ascorbic Acid (Ascorbic Acid 500 Mg Tablet) 500 mg PO DAILY [facility] Last Admin: 12/13/20 08:44 Dose: 500 mg Documented by: Aspirin (Aspirin Enteric Coated 81 Mg Tablet.) 81 mg PO DAILY [facility] Last Admin: 12/13/20 08:45 Dose: 81 mg Documented by: Atenolol (Atenolol 50 Mg Tablet) 50 mg PO DAILY [facility]; Protocol Last Admin: 12/13/20 08:44 Dose: 50 mg Documented by: Atorvastatin Calcium (Atorvastatin Calcium 10 Mg Tablet) 10 mg PO DAILY [facility] Last Admin: 12/13/20 08:44 Dose: 10 mg Documented by: Dextrose (Dextrose 50 % 25 Gm/50 Ml Vial) 25 gm IVPUSH Q15M PRN; Protocol PRN Reason: per Hypoglycemia Standing Ord. Divalproex Sodium (Divalproex Sodium 500 Mg Tablet.Dr) 500 mg PO BID [facility] Last Admin: 12/13/20 21:22 Dose: Not Given Documented by: Docusate Sodium (Docusate Sodium 100 Mg Capsule) 100 mg PO DAILY PRN PRN Reason: Constipation Escitalopram Oxalate (Escitalopram Oxalate 20 Mg Tablet) 20 mg PO DAILY [facility] Last Admin: 12/13/20 08:44 Dose: 20 mg Documented by: Famotidine (Famotidine 20 Mg Tablet) 40 mg PO BID [facility] Last Admin: 12/13/20 21:19 Dose: 40 mg Documented by: Fluticasone Propionate (Fluticasone Propionate Nasal 16 Gm [place]) 1 spray NOSTRIL-B DAILY [facility] Furosemide (Furosemide 20 Mg/2 Ml Vial) 20 mg IVPUSH ONCE ONE; Protocol Stop: 12/14/20 09:25 Glucose (Glucose Gel 15 Gm Gel..Gram.) 15 gm PO Q15M PRN; Protocol PRN Reason: per Hypoglycemia Standing Ord. Guaifenesin/Dextromethorphan (Guaifenesin Dm 200/20/10 Ml 10 Ml Syrup) 10 ml PO Q6H PRN PRN Reason: cough Heparin Sodium (Porcine) (Heparin Sodium,Porcine 5,000 Unit/Ml Vial) 5,000 unit SUBCUT Q12H [facility] Last Admin: 12/13/20 21:20 Dose: 5,000 unit Documented by: Insulin Glargine (Insulin Glargine,Hum.Rec.Anlog 100 Unit/Ml 10 Ml Vial) 20 unit SUBCUT BEDTIME [facility] Last Admin: 12/13/20 21:20 Dose: 20 unit Documented by: Insulin Human Lispro (Insulin Lispro 100 Unit/Ml 3 Ml Vial) 0 unit SUBCUT QIDACHS [facility]; Protocol Last Admin: 12/14/20 07:58 Dose: Not Given Documented by: Ondansetron HCl (Ondansetron Hcl 4 Mg/2 Ml Vial) 4 mg IVPUSH Q8H PRN PRN Reason: Nausea and Vomiting Pioglitazone HCl (Pioglitazone Hcl 15 Mg Tablet) 15 mg PO DAILY [facility] Last Admin: 12/13/20 08:44 Dose: 15 mg Documented by: Prednisone (Prednisone 20 Mg Tablet) 20 mg PO DAILY [facility] Sodium Chloride (0.9 % Sodium Chloride Flush 3 Ml Syringe) 3 ml IVFLUSH QSHIFT [facility] Last Admin: 12/13/20 21:22 Dose: 3 ml Documented by: Vitamin D (Cholecalciferol (Vitamin D3) 25 Mcg Tablet) 50 mcg PO DAILY [facility] Last Admin: 12/13/20 08:44 Dose: 50 mcg Documented by: Zinc Sulfate (Zinc Sulfate 220 Mg Capsule) 220 mg PO DAILY [facility] Last Admin: 12/13/20 08:44 Dose: 220 mg Documented by: Home Medications Medication Instructions Recorded Confirmed Last Taken Type clonazepam 1 mg tablet 1 mg PO BID PRN 03/31/20 11/18/20 11/18/20 History divalproex 500 mg tablet,delayed 500 mg PO BID 03/31/20 11/18/20 11/18/20 History release escitalopram oxalate 20 mg tablet 20 mg PO DAILY 03/31/20 11/18/20 11/18/20 History losartan 100 mg tablet 100 mg PO DAILY 09/29/20 11/18/20 11/18/20 History atorvastatin 10 mg tablet 10 mg PO DAILY 11/18/20 11/18/20 11/18/20 History Physical Exam Vital Signs: Vital Signs: Last Vital Signs Temp 98.4 F 12/14/20 07:26 Pulse 83 12/14/20 07:26 Resp 19 12/14/20 07:26 BP 121/74 12/14/20 07:26 Pulse Ox 95 12/14/20 07:26 Body Mass Index 26.0 Const: General: alert Neck: Neck: Yes normal visual inspection, Yes full ROM and Yes no lymphadenopathy Chest: Chest palpation & inspection: normal inspection of the chest Resp: Auscultation: rales bilateral at the base and diminished lung sounds Cardio: Rate: regular rate Rhythm: regular rhythm Heart sounds: S1 normal heart sound present and S2 normal heart sound present GI: Palpation (GI): Soft to palpation and nontender Auscultation: normal bowel sounds Skin: General skin exam: rashes and/or lesions noted Extrem: Right upper extremity: edema Results Laboratory Findings CBC and BMP: 12/08/20 06:28 12/09/20 06:41 ABG, PT/INR, D-dimer: PT/INR, D-dimer PT 12.5 SEC (9.9-13.0) 11/18/20 19:02 INR 1.1 (0.9-1.1) 11/18/20 19:02 D-Dimer 1313 NG/ML 11/18/20 19:02 Abnormal lab findings: Abnormal Labs 11/18/20 11/18/20 11/18/20 16:57 16:57 19:01 WBC RBC Hct MCH Plt Count 156 L D Immature Gran % (Auto) 0.5 H Neut % (Auto) 86.0 H Lymph % (Auto) 10.1 L Lymph # (Auto) 0.7 L Sodium Potassium BUN Creatinine POC Glucose Random Glucose 130 H Lactic Acid 2.6 H* Ferritin Lactate Dehydrogenase C-Reactive Protein Urine Protein Urine Glucose (UA) Coronavirus (PCR) 11/18/20 11/18/20 11/18/20 19:02 19:03 20:04 WBC RBC Hct MCH Plt Count Immature Gran % (Auto) Neut % (Auto) Lymph % (Auto) Lymph # (Auto) Sodium Potassium BUN Creatinine POC Glucose Random Glucose Lactic Acid Ferritin 1147 H Lactate Dehydrogenase 622 H C-Reactive Protein 13.08 H Urine Protein 2+ H Urine Glucose (UA) >=1000 H Coronavirus (PCR) POSITIVE A 11/18/20 11/19/20 11/19/20 22:15 07:32 07:32 WBC RBC Hct MCH Plt Count Immature Gran % (Auto) Neut % (Auto) 86.3 H Lymph % (Auto) 10.4 L Lymph # (Auto) 0.6 L Sodium Potassium BUN 17 H Creatinine POC Glucose 117 H Random Glucose 155 H Lactic Acid Ferritin Lactate Dehydrogenase C-Reactive Protein Urine Protein Urine Glucose (UA) Coronavirus (PCR) 11/19/20 11/19/20 11/19/20 08:29 11:05 13:22 WBC RBC Hct MCH Plt Count Immature Gran % (Auto) Neut % (Auto) Lymph % (Auto) Lymph # (Auto) Sodium Potassium BUN Creatinine POC Glucose 188 H 180 H 165 H Random Glucose Lactic Acid Ferritin Lactate Dehydrogenase C-Reactive Protein Urine Protein Urine Glucose (UA) Coronavirus (PCR) 11/19/20 11/19/20 11/20/20 15:56 19:44 06:14 WBC 13.4 H RBC Hct MCH 26.9 L Plt Count Immature Gran % (Auto) Neut % (Auto) Lymph % (Auto) Lymph # (Auto) Sodium Potassium BUN Creatinine POC Glucose 185 H 156 H Random Glucose Lactic Acid Ferritin Lactate Dehydrogenase C-Reactive Protein Urine Protein Urine Glucose (UA) Coronavirus (PCR) 11/20/20 11/20/20 11/20/20 06:14 07:26 11:10 WBC RBC Hct MCH Plt Count Immature Gran % (Auto) Neut % (Auto) Lymph % (Auto) Lymph # (Auto) Sodium Potassium BUN 24 H Creatinine POC Glucose 147 H 171 H Random Glucose 161 H Lactic Acid Ferritin Lactate Dehydrogenase C-Reactive Protein Urine Protein Urine Glucose (UA) Coronavirus (PCR) 11/20/20 11/20/20 11/21/20 15:53 19:50 06:09 WBC RBC Hct MCH 26.7 L Plt Count Immature Gran % (Auto) Neut % (Auto) Lymph % (Auto) Lymph # (Auto) Sodium Potassium BUN Creatinine POC Glucose 230 H 175 H Random Glucose Lactic Acid Ferritin Lactate Dehydrogenase C-Reactive Protein Urine Protein Urine Glucose (UA) Coronavirus (PCR) 11/21/20 11/21/20 11/21/20 06:09 07:26 11:33 WBC RBC Hct MCH Plt Count Immature Gran % (Auto) Neut % (Auto) Lymph % (Auto) Lymph # (Auto) Sodium Potassium BUN 27 H Creatinine POC Glucose 158 H 176 H Random Glucose 166 H Lactic Acid Ferritin Lactate Dehydrogenase C-Reactive Protein Urine Protein Urine Glucose (UA) Coronavirus (PCR) 11/21/20 11/21/20 11/22/20 16:03 19:53 05:52 WBC RBC 5.67 H Hct 48.2 H MCH Plt Count Immature Gran % (Auto) Neut % (Auto) Lymph % (Auto) Lymph # (Auto) Sodium Potassium BUN Creatinine POC Glucose 213 H 200 H Random Glucose Lactic Acid Ferritin Lactate Dehydrogenase C-Reactive Protein Urine Protein Urine Glucose (UA) Coronavirus (PCR) 11/22/20 11/22/20 11/22/20 05:52 05:52 07:14 WBC RBC Hct MCH Plt Count Immature Gran % (Auto) Neut % (Auto) Lymph % (Auto) Lymph # (Auto) Sodium Potassium BUN 29 H Creatinine POC Glucose 191 H Random Glucose 183 H Lactic Acid Ferritin Lactate Dehydrogenase 867 H C-Reactive Protein 2.63 H Urine Protein Urine Glucose (UA) Coronavirus (PCR) 11/22/20 11/22/20 11/22/20 10:42 16:08 19:47 WBC RBC Hct MCH Plt Count Immature Gran % (Auto) Neut % (Auto) Lymph % (Auto) Lymph # (Auto) Sodium Potassium BUN Creatinine POC Glucose 241 H 297 H 233 H Random Glucose Lactic Acid Ferritin Lactate Dehydrogenase C-Reactive Protein Urine Protein Urine Glucose (UA) Coronavirus (PCR) 11/23/20 11/23/20 11/23/20 07:44 11:34 16:21 WBC RBC Hct MCH Plt Count Immature Gran % (Auto) Neut % (Auto) Lymph % (Auto) Lymph # (Auto) Sodium Potassium BUN Creatinine POC Glucose 219 H 183 H 234 H Random Glucose Lactic Acid Ferritin Lactate Dehydrogenase C-Reactive Protein Urine Protein Urine Glucose (UA) Coronavirus (PCR) 11/23/20 11/24/20 11/24/20 19:49 08:05 10:46 WBC RBC Hct MCH Plt Count Immature Gran % (Auto) Neut % (Auto) Lymph % (Auto) Lymph # (Auto) Sodium Potassium BUN Creatinine POC Glucose 254 H 192 H 254 H Random Glucose Lactic Acid Ferritin Lactate Dehydrogenase C-Reactive Protein Urine Protein Urine Glucose (UA) Coronavirus (PCR) 11/24/20 11/24/20 11/25/20 16:07 20:23 07:41 WBC RBC Hct MCH Plt Count Immature Gran % (Auto) Neut % (Auto) Lymph % (Auto) Lymph # (Auto) Sodium Potassium BUN Creatinine POC Glucose 255 H 211 H 167 H Random Glucose Lactic Acid Ferritin Lactate Dehydrogenase C-Reactive Protein Urine Protein Urine Glucose (UA) Coronavirus (PCR) 11/25/20 11/25/20 11/25/20 11:37 16:35 19:45 WBC RBC Hct MCH Plt Count Immature Gran % (Auto) Neut % (Auto) Lymph % (Auto) Lymph # (Auto) Sodium Potassium BUN Creatinine POC Glucose 194 H 242 H 293 H Random Glucose Lactic Acid Ferritin Lactate Dehydrogenase C-Reactive Protein Urine Protein Urine Glucose (UA) Coronavirus (PCR) 11/26/20 11/26/20 11/26/20 08:09 10:50 16:22 WBC RBC Hct MCH Plt Count Immature Gran % (Auto) Neut % (Auto) Lymph % (Auto) Lymph # (Auto) Sodium Potassium BUN Creatinine POC Glucose 183 H 214 H 293 H Random Glucose Lactic Acid Ferritin Lactate Dehydrogenase C-Reactive Protein Urine Protein Urine Glucose (UA) Coronavirus (PCR) 11/26/20 11/27/20 11/27/20 19:49 07:19 10:41 WBC RBC Hct MCH Plt Count Immature Gran % (Auto) Neut % (Auto) Lymph % (Auto) Lymph # (Auto) Sodium Potassium BUN Creatinine POC Glucose 366 H* 153 H 277 H Random Glucose Lactic Acid Ferritin Lactate Dehydrogenase C-Reactive Protein Urine Protein Urine Glucose (UA) Coronavirus (PCR) 11/27/20 11/27/20 11/27/20 10:59 10:59 16:33 WBC 21.1 H RBC Hct MCH Plt Count Immature Gran % (Auto) Neut % (Auto) Lymph % (Auto) Lymph # (Auto) Sodium 134 L Potassium BUN 41 H Creatinine 1.58 H POC Glucose 228 H Random Glucose 296 H Lactic Acid Ferritin Lactate Dehydrogenase C-Reactive Protein Urine Protein Urine Glucose (UA) Coronavirus (PCR) 11/27/20 11/28/20 11/28/20 20:34 05:34 07:50 WBC RBC Hct MCH Plt Count Immature Gran % (Auto) Neut % (Auto) Lymph % (Auto) Lymph # (Auto) Sodium Potassium BUN Creatinine POC Glucose 232 H 178 H Random Glucose Lactic Acid Ferritin Lactate Dehydrogenase C-Reactive Protein 7.53 H Urine Protein Urine Glucose (UA) Coronavirus (PCR) 11/28/20 11/28/20 11/28/20 11:08 16:02 19:52 WBC RBC Hct MCH Plt Count Immature Gran % (Auto) Neut % (Auto) Lymph % (Auto) Lymph # (Auto) Sodium Potassium BUN Creatinine POC Glucose 195 H 271 H 247 H Random Glucose Lactic Acid Ferritin Lactate Dehydrogenase C-Reactive Protein Urine Protein Urine Glucose (UA) Coronavirus (PCR) 11/29/20 11/29/20 11/29/20 07:13 10:52 15:56 WBC RBC Hct MCH Plt Count Immature Gran % (Auto) Neut % (Auto) Lymph % (Auto) Lymph # (Auto) Sodium Potassium BUN Creatinine POC Glucose 162 H 299 H 246 H Random Glucose Lactic Acid Ferritin Lactate Dehydrogenase C-Reactive Protein Urine Protein Urine Glucose (UA) Coronavirus (PCR) 11/29/20 11/30/20 11/30/20 19:55 07:16 11:23 WBC RBC Hct MCH Plt Count Immature Gran % (Auto) Neut % (Auto) Lymph % (Auto) Lymph # (Auto) Sodium Potassium BUN Creatinine POC Glucose 276 H 193 H 212 H Random Glucose Lactic Acid Ferritin Lactate Dehydrogenase C-Reactive Protein Urine Protein Urine Glucose (UA) Coronavirus (PCR) 11/30/20 11/30/20 12/01/20 16:15 19:32 05:55 WBC RBC Hct MCH Plt Count Immature Gran % (Auto) Neut % (Auto) Lymph % (Auto) Lymph # (Auto) Sodium 132 L Potassium 5.6 H BUN 51 H Creatinine POC Glucose 321 H 349 H Random Glucose 211 H Lactic Acid Ferritin Lactate Dehydrogenase C-Reactive Protein Urine Protein Urine Glucose (UA) Coronavirus (PCR) 12/01/20 12/01/20 12/01/20 07:39 11:50 15:51 WBC RBC Hct MCH Plt Count Immature Gran % (Auto) Neut % (Auto) Lymph % (Auto) Lymph # (Auto) Sodium Potassium BUN Creatinine POC Glucose 189 H 389 H* 290 H Random Glucose Lactic Acid Ferritin Lactate Dehydrogenase C-Reactive Protein Urine Protein Urine Glucose (UA) Coronavirus (PCR) 12/01/20 12/02/20 12/02/20 20:00 06:19 07:13 WBC RBC Hct MCH Plt Count Immature Gran % (Auto) Neut % (Auto) Lymph % (Auto) Lymph # (Auto) Sodium Potassium 5.5 H BUN 52 H Creatinine POC Glucose 271 H 183 H Random Glucose 206 H Lactic Acid Ferritin Lactate Dehydrogenase C-Reactive Protein Urine Protein Urine Glucose (UA) Coronavirus (PCR) 12/02/20 12/02/20 12/02/20 11:07 15:57 19:47 WBC RBC Hct MCH Plt Count Immature Gran % (Auto) Neut % (Auto) Lymph % (Auto) Lymph # (Auto) Sodium Potassium BUN Creatinine POC Glucose 364 H* 444 H* 392 H* Random Glucose Lactic Acid Ferritin Lactate Dehydrogenase C-Reactive Protein Urine Protein Urine Glucose (UA) Coronavirus (PCR) 12/03/20 12/03/20 12/03/20 07:28 07:53 11:26 WBC RBC Hct MCH Plt Count Immature Gran % (Auto) Neut % (Auto) Lymph % (Auto) Lymph # (Auto) Sodium Potassium BUN 42 H Creatinine POC Glucose 197 H 266 H Random Glucose 189 H Lactic Acid Ferritin Lactate Dehydrogenase C-Reactive Protein Urine Protein Urine Glucose (UA) Coronavirus (PCR) 12/03/20 12/03/20 12/04/20 15:56 20:27 07:16 WBC RBC Hct MCH Plt Count Immature Gran % (Auto) Neut % (Auto) Lymph % (Auto) Lymph # (Auto) Sodium Potassium BUN Creatinine POC Glucose 330 H 368 H* 254 H Random Glucose Lactic Acid Ferritin Lactate Dehydrogenase C-Reactive Protein Urine Protein Urine Glucose (UA) Coronavirus (PCR) 12/04/20 12/04/20 12/04/20 11:04 16:01 20:12 WBC RBC Hct MCH Plt Count Immature Gran % (Auto) Neut % (Auto) Lymph % (Auto) Lymph # (Auto) Sodium Potassium BUN Creatinine POC Glucose 327 H 278 H 359 H* Random Glucose Lactic Acid Ferritin Lactate Dehydrogenase C-Reactive Protein Urine Protein Urine Glucose (UA) Coronavirus (PCR) 12/05/20 12/05/20 12/05/20 06:19 07:06 10:52 WBC RBC Hct MCH Plt Count Immature Gran % (Auto) Neut % (Auto) Lymph % (Auto) Lymph # (Auto) Sodium Potassium BUN Creatinine POC Glucose 178 H 286 H Random Glucose Lactic Acid Ferritin Lactate Dehydrogenase 492 H C-Reactive Protein Urine Protein Urine Glucose (UA) Coronavirus (PCR) 12/05/20 12/05/20 12/06/20 15:57 19:59 10:58 WBC RBC Hct MCH Plt Count Immature Gran % (Auto) Neut % (Auto) Lymph % (Auto) Lymph # (Auto) Sodium Potassium BUN Creatinine POC Glucose 286 H 311 H 177 H Random Glucose Lactic Acid Ferritin Lactate Dehydrogenase C-Reactive Protein Urine Protein Urine Glucose (UA) Coronavirus (PCR) 12/06/20 12/06/20 12/07/20 15:39 19:51 11:54 WBC RBC Hct MCH Plt Count Immature Gran % (Auto) Neut % (Auto) Lymph % (Auto) Lymph # (Auto) Sodium Potassium BUN Creatinine POC Glucose 287 H 381 H* 165 H Random Glucose Lactic Acid Ferritin Lactate Dehydrogenase C-Reactive Protein Urine Protein Urine Glucose (UA) Coronavirus (PCR) 12/07/20 12/07/20 12/08/20 15:45 19:35 06:28 WBC RBC Hct MCH Plt Count Immature Gran % (Auto) Neut % (Auto) Lymph % (Auto) Lymph # (Auto) Sodium Potassium 5.4 H BUN 38 H Creatinine POC Glucose 294 H 357 H* Random Glucose Lactic Acid Ferritin Lactate Dehydrogenase C-Reactive Protein Urine Protein Urine Glucose (UA) Coronavirus (PCR) 12/08/20 12/08/20 12/08/20 11:08 16:10 20:42 WBC RBC Hct MCH Plt Count Immature Gran % (Auto) Neut % (Auto) Lymph % (Auto) Lymph # (Auto) Sodium Potassium BUN Creatinine POC Glucose 151 H 239 H 270 H Random Glucose Lactic Acid Ferritin Lactate Dehydrogenase C-Reactive Protein Urine Protein Urine Glucose (UA) Coronavirus (PCR) 12/09/20 12/09/20 12/09/20 06:41 10:50 16:05 WBC RBC Hct MCH Plt Count Immature Gran % (Auto) Neut % (Auto) Lymph % (Auto) Lymph # (Auto) Sodium Potassium BUN 29 H Creatinine POC Glucose 188 H 250 H Random Glucose Lactic Acid Ferritin Lactate Dehydrogenase C-Reactive Protein Urine Protein Urine Glucose (UA) Coronavirus (PCR) 12/09/20 12/10/20 12/10/20 19:45 15:56 19:51 WBC RBC Hct MCH Plt Count Immature Gran % (Auto) Neut % (Auto) Lymph % (Auto) Lymph # (Auto) Sodium Potassium BUN Creatinine POC Glucose 223 H 205 H 271 H Random Glucose Lactic Acid Ferritin Lactate Dehydrogenase C-Reactive Protein Urine Protein Urine Glucose (UA) Coronavirus (PCR) 12/11/20 12/11/20 12/11/20 11:06 16:17 19:50 WBC RBC Hct MCH Plt Count Immature Gran % (Auto) Neut % (Auto) Lymph % (Auto) Lymph # (Auto) Sodium Potassium BUN Creatinine POC Glucose 165 H 158 H 206 H Random Glucose Lactic Acid Ferritin Lactate Dehydrogenase C-Reactive Protein Urine Protein Urine Glucose (UA) Coronavirus (PCR) 12/12/20 12/12/20 12/12/20 11:16 16:20 20:05 WBC RBC Hct MCH Plt Count Immature Gran % (Auto) Neut % (Auto) Lymph % (Auto) Lymph # (Auto) Sodium Potassium BUN Creatinine POC Glucose 199 H 194 H 213 H Random Glucose Lactic Acid Ferritin Lactate Dehydrogenase C-Reactive Protein Urine Protein Urine Glucose (UA) Coronavirus (PCR) 12/13/20 12/13/20 12/13/20 11:06 16:07 19:59 WBC RBC Hct MCH Plt Count Immature Gran % (Auto) Neut % (Auto) Lymph % (Auto) Lymph # (Auto) Sodium Potassium BUN Creatinine POC Glucose 126 H 203 H 195 H Random Glucose Lactic Acid Ferritin Lactate Dehydrogenase C-Reactive Protein Urine Protein Urine Glucose (UA) Coronavirus (PCR) Microbiology: Microbiology 11/18/20 19:02 Blood - Venous Blood Culture - Final No growth after 5 days. 11/18/20 19:01 Blood - Venous Blood Culture - Final No growth after 5 days. Assessment and Plan (1) Acute respiratory distress syndrome (ARDS) due to COVID-19 virus: Status: Acute (2) Hypoxia: Status: Acute The patient had some increasing oxygen requirements. Although based on what I could appreciate she is not always adherent with her oxygen supplementation. Clinically she is feeling better that is reassuring. In the meantime he does appear that she is volume overloaded with significant lower extremity edema. Recommendations: Requesting chest x-ray now IV Lasix x1 resource recovery engineer to a Ventimask from the non-rebreather and add humidification Sarpy spray saline at her bedside for her to use as needed May benefit from an Oxymizer pendant in order to have additional oxygen when ambulating which appears to be the issue with her right now ABG if no better CTA if no better Procedures Date of Service Date of Service: 12/14/20
[2020-12-14] MEDS: Furosemide 20 MG/2 ML VIAL IVPUSH (10:06)
[2020-12-14] MEDS: Heparin Sodium,Porcine 5,000 UNIT/ML VIAL 5000 UNIT SUBCUT ×2 (10:06→18:29)
[2020-12-14] MEDS: Atorvastatin Calcium 10 MG TABLET PO (10:07)
[2020-12-14] MEDS: Zinc Sulfate 220 MG CAPSULE PO (10:07)
[2020-12-14] MEDS: Cholecalciferol (Vitamin D3) 25 MCG TABLET 50 MCG PO (10:08)
[2020-12-14] MEDS: Escitalopram Oxalate 20 MG TABLET PO (10:08)
[2020-12-14] MEDS: Aspirin Enteric Coated 81 MG TABLET.DR PO (10:08)
[2020-12-14] MEDS: atenoloL 50 MG TABLET PO (10:08)
[2020-12-14] MEDS: Ascorbic Acid 500 MG TABLET PO (10:09)
[2020-12-14] MEDS: predniSONE 20 MG TABLET PO (10:09)
[2020-12-14] MEDS: Famotidine 20 MG TABLET 40 MG PO ×2 (10:09→21:14)
[2020-12-14] MEDS: 0.9 % Sodium Chloride Flush 3 ML SYRINGE IVFLUSH ×3 (10:10→21:16)
[2020-12-14] MEDS: Fluticasone Propionate Nasal 16 GM SPRAY 1 SPRAY NOSTRIL-B (10:19)
[2020-12-14 11:37] LABS: Glucose, Whole Blood 91 mg/dL (60-115)
--- NOTE | 2020-12-14 14:23 | MHC.CM.PN ---
Female 50 dx Covid No discharge at this time. Patient is unable to wean from highflow oxygen. Pulmonary consult and CXR today. DP will be home with oxygen once patient oxygen demand lessens. CM will follow.
[2020-12-14 16:13] LABS: Glucose, Whole Blood 217 mg/dL (60-115)
--- NOTE | 2020-12-14 16:42 | HO.PM.IMPN ---
Subjective Subjective Date of Service: 12/14/20 Interval History: ?Acute hypoxemic respiratory failure secondary to COVID. Review of Systems Denies any new complaint of chest pain or abdominal pain or fever or chills or nausea or vomiting Denies any weakness or numbness. still sob , in the morning dissected in 60s and was put on non-rebreather. Physical Exam Vital Signs: Vital Signs: Last Vital Signs Temp 97.6 F 12/14/20 15:17 Pulse 73 12/14/20 15:17 Resp 20 12/14/20 15:17 BP 106/73 12/14/20 15:17 Pulse Ox 91 L 12/14/20 15:17 Body Mass Index 26.0 Appearance: not in distress.? Eyes: Pupils equal, round and reactive to light.? cvs: [id number], [id number] , no murmur res: air entry improving , few scattered rhonchii abd: no rebound or guarding ,nt, bs present. ext pulses present , no cyanosis ,Gait well balanced well coordinated. neuro: axo3 , nonfocal. Objective Data Active Medications Acetaminophen (Acetaminophen 325 Mg Tablet) 650 mg PO Q6H PRN PRN Reason: Pain, Mild (Pain Scale 1-3) Albuterol Sulfate (Albuterol Sulfate 90 Mcg 8 Gm Inhaler) 4 puff INHALE Q3H PRN PRN Reason: Shortness of Breath/Wheezing Ascorbic Acid (Ascorbic Acid 500 Mg Tablet) 500 mg PO DAILY [facility] Last Admin: 12/14/20 10:09 Dose: 500 mg Documented by: ANISHA Aspirin (Aspirin Enteric Coated 81 Mg Tablet.) 81 mg PO DAILY [facility] Last Admin: 12/14/20 10:08 Dose: 81 mg Documented by: ANISHA Atenolol (Atenolol 50 Mg Tablet) 50 mg PO DAILY [facility]; Protocol Last Admin: 12/14/20 10:08 Dose: 50 mg Documented by: ANISHA Atorvastatin Calcium (Atorvastatin Calcium 10 Mg Tablet) 10 mg PO DAILY [facility] Last Admin: 12/14/20 10:07 Dose: 10 mg Documented by: ANISHA Dextrose (Dextrose 50 % 25 Gm/50 Ml Vial) 25 gm IVPUSH Q15M PRN; Protocol PRN Reason: per Hypoglycemia Standing Ord. Divalproex Sodium (Divalproex Sodium 500 Mg Tablet.) 500 mg PO BID [facility] Last Admin: 12/14/20 10:10 Dose: Not Given Documented by: ANISHA Non-Admin Reason: Patient Refused Docusate Sodium (Docusate Sodium 100 Mg Capsule) 100 mg PO DAILY PRN PRN Reason: Constipation Escitalopram Oxalate (Escitalopram Oxalate 20 Mg Tablet) 20 mg PO DAILY [facility] Last Admin: 12/14/20 10:08 Dose: 20 mg Documented by: ANISHA Famotidine (Famotidine 20 Mg Tablet) 40 mg PO BID [facility] Last Admin: 12/14/20 10:09 Dose: 40 mg Documented by: ANISHA Fluticasone Propionate (Fluticasone Propionate Nasal 16 Gm [place]) 1 spray NOSTRIL-B DAILY [facility] Last Admin: 12/14/20 10:19 Dose: 1 spray Documented by: ANISHA Glucose (Glucose Gel 15 Gm Gel..Gram.) 15 gm PO Q15M PRN; Protocol PRN Reason: per Hypoglycemia Standing Ord. Guaifenesin/Dextromethorphan (Guaifenesin Dm 200/20/10 Ml 10 Ml Syrup) 10 ml PO Q6H PRN PRN Reason: cough Heparin Sodium (Porcine) (Heparin Sodium,Porcine 5,000 Unit/Ml Vial) 5,000 unit SUBCUT Q8H [facility] Insulin Glargine (Insulin Glargine,Hum.Rec.Anlog 100 Unit/Ml 10 Ml Vial) 20 unit SUBCUT BEDTIME [facility] Last Admin: 12/13/20 21:20 Dose: 20 unit Documented by: VAIBHAV Insulin Human Lispro (Insulin Lispro 100 Unit/Ml 3 Ml Vial) 0 unit SUBCUT QIDACHS [facility]; Protocol Last Admin: 12/14/20 11:39 Dose: Not Given Documented by: ACE Non-Admin Reason: No Insulin Coverage Ondansetron HCl (Ondansetron Hcl 4 Mg/2 Ml Vial) 4 mg IVPUSH Q8H PRN PRN Reason: Nausea and Vomiting Pioglitazone HCl (Pioglitazone Hcl 15 Mg Tablet) 15 mg PO DAILY [facility] Last Admin: 12/14/20 10:08 Dose: 15 mg Documented by: ANISHA Prednisone (Prednisone 20 Mg Tablet) 20 mg PO DAILY [facility] Last Admin: 12/14/20 10:09 Dose: 20 mg Documented by: ANISHA Sodium Chloride (0.9 % Sodium Chloride Flush 3 Ml Syringe) 3 ml IVFLUSH QSHIFT [facility] Last Admin: 12/14/20 10:10 Dose: 3 ml Documented by: ANISHA Sodium Chloride (Sodium Chloride 0.65 % Nasal 44 Ml Sprbtl) 1 spray NOSTRIL-B Q1H PRN PRN Reason: Congestion Vitamin D (Cholecalciferol (Vitamin D3) 25 Mcg Tablet) 50 mcg PO DAILY [facility] Last Admin: 12/14/20 10:08 Dose: 50 mcg Documented by: ANISHA Zinc Sulfate (Zinc Sulfate 220 Mg Capsule) 220 mg PO DAILY [facility] Last Admin: 12/14/20 10:07 Dose: 220 mg Documented by: ANISHA Labs CBC & Chem 7: 12/08/20 06:28 12/09/20 06:41 Labs: Laboratory Results - last 24 hr 12/13/20 12/14/20 12/14/20 19:59 07:25 11:19 POC Glucose 195 H 79 91 12/14/20 16:04 POC Glucose 217 H Assessment and Plan (1) Acute respiratory distress syndrome (ARDS) due to COVID-19 virus: Status: Acute Assessment and Plan: 50-year-old female unvaccinated presents to the hospital with complaints of shortness of breath found to have COVID-19 pneumonia with viral sepsis 1.Acute hypoxic respiratory failure d/t covid 19, slow to wean completed? DExa and completed Remdesevir contineu pepcid 40 bid, vitc, Zinc,Prednisone for few more day, still hypoxic and keep worsening Discussed with Pulmonary-added CTA r/o pulm embolism 2. Hypertension--noted to have soft blood pressures on Norvasc and atenolol, therefore Norvasc discontinued, continue atenolol and follow BP, ?? losartan? held on admission due to PEREZ 3.PEREZ--now resolved was likely pre renal , avoid nephrotoxins 4. hyperkalemia? potassium elevated intermittently, likely due to hyperglycemia, will give? Kayexalate, continue to hold losartan 5.Diabetes--elevated blood sugars due to steroid, continue Lantus and sliding scale,continue Actos, ,at home takes metformin and Actos, follow blood sugar closely while steroids are being tapered. 6. Anxiety and depression continue estalopram 7. Hyperlipidemia: continue lipitor DVT prophylaxis Heparin subQ Quality Stroke Does the patient have a stroke diagnosis?: No VTE Prior VTE?: No VTE Risk Level:: Medical - moderate - high VTE Device Contraindication: Treatment Not Indicated VTE Drug Contraindication: N/A - Med Ordered
[2020-12-14 16:44] LABS: Anion Gap 13 (12-20); Blood Urea Nitrogen 23 mg/dL (9-16); Carbon Dioxide 27 mmol/L (22-29); Chloride 102 mmol/L (96-108); Creatinine Clr Calc Pharmacy 62.3; Estimated Glomerular Filt Rate 48; Glucose Random 231 mg/dL (60-115); Potassium 5.5 mmol/L (3.3-5.1); Sodium 136 mmol/L (135-145)
[2020-12-14 16:50] LABS: B Type Natriuretic Peptide 100 pg/mL (<100)
[2020-12-14] MEDS: Insulin Lispro 100 UNIT/ML 3 ML VIAL SUBCUT ×2 (17:05→21:14)
[2020-12-14] MEDS: Sodium Polystyrene Sulfon/Sorb 15 GM/60 ML ORAL.SUSP 30 GM PO (18:30)
[2020-12-14] MEDS: iohexoL 350 MG/ML 100 ML INFUS..BTL IV (19:08)
--- NOTE | 2020-12-14 19:44 | PC.NURSE ---
In am pt was on 6L NC, pt was getting to commode, immediately desat sitting in 60-70s. Assessed pt, mild BRANTLEY. Pt taking a few min to recover so placed on NRB. Resp to room to assess pt as well. Pt stating she was having trouble taking breaths through her nose due to nasal congestion. MD notified as well, added flonase BID and prn saline spray. PT titrated down to venti mask. Still desat with exertion but cont to wean o2 according to cont o2 sat. Currently on 12L 50% Pt went for chest CTA this evening, results pending at this time.
[2020-12-14 20:23] LABS: Glucose, Whole Blood 180 mg/dL (60-115)
[2020-12-14] MEDS: Insulin Glargine,Hum.rec.anlog 100 UNIT/ML 10 ML VIAL 20 UNIT SUBCUT (21:14)
[2020-12-15] VITALS (9 sets, daily range): BP systolic 107–141; BP diastolic 69–95; PULSE 65–76; RESP 18–20; TEMP 35.9–36.8; O2SAT 82–95
[2020-12-15] MEDS: Heparin Sodium,Porcine 5,000 UNIT/ML VIAL 5000 UNIT SUBCUT ×2 (01:56→08:21)
[2020-12-15 06:30] LABS: Anion Gap 9 (12-20); Blood Urea Nitrogen 20 mg/dL (9-16); Calcium 8.5 mg/dL (8.4-10.2); Carbon Dioxide 31 mmol/L (22-29); Chloride 104 mmol/L (96-108); Creatinine Clr Calc Pharmacy 85.5; Estimated Glomerular Filt Rate > 60; Glucose Random 72 mg/dL (60-115); Potassium 3.7 mmol/L (3.3-5.1); Sodium 140 mmol/L (135-145)
[2020-12-15 07:18] LABS: Glucose, Whole Blood 66 mg/dL (60-115)
[2020-12-15] MEDS: Sodium Chloride 0.65 % Nasal 44 ML SPRBTL 1 SPRAY NOSTRIL-B (08:21)
[2020-12-15] MEDS: 0.9 % Sodium Chloride Flush 3 ML SYRINGE IVFLUSH ×3 (08:21→20:16)
[2020-12-15] MEDS: Cholecalciferol (Vitamin D3) 25 MCG TABLET 50 MCG PO (08:22)
[2020-12-15] MEDS: Famotidine 20 MG TABLET 40 MG PO ×2 (08:22→20:14)
[2020-12-15] MEDS: Zinc Sulfate 220 MG CAPSULE PO (08:22)
[2020-12-15] MEDS: Aspirin Enteric Coated 81 MG TABLET.DR PO (08:22)
[2020-12-15] MEDS: atenoloL 50 MG TABLET PO (08:22)
[2020-12-15] MEDS: predniSONE 20 MG TABLET PO (08:22)
[2020-12-15] MEDS: Escitalopram Oxalate 20 MG TABLET PO (08:22)
[2020-12-15] MEDS: Ascorbic Acid 500 MG TABLET PO (08:23)
[2020-12-15] MEDS: Atorvastatin Calcium 10 MG TABLET PO (08:23)
[2020-12-15] MEDS: Fluticasone Propionate Nasal 16 GM SPRAY 1 SPRAY NOSTRIL-B (08:23)
[2020-12-15 08:36] LABS: VBG Base Excess 9.8 mmol/L; VBG HCO3 37 mmol/L (22-26); VBG pCO2 61 mmHg; VBG pH 7.38 (7.32-7.43); VBG pO2 34 mmHg
[2020-12-15 08:50] LABS: C Reactive Protein 5.93 mg/dL (< or = 0.50)
[2020-12-15 09:03] LABS: Venous Blood Gas Refer to POC result
[2020-12-15 09:12] LABS: Ferritin 936 ng/mL (10-250)
--- NOTE | 2020-12-15 09:15 | P.PNPL_ITS ---
Subjective Subjective Date of Service: 12/15/20 Interval history: The patient was seen on exam. I did review her CT scan of the chest demonstrating no evidence of any pulmonary emboli. Although, she has extensive bilateral diffuse airspace disease very worrisome. Some degree of cavitary lesion on the left upper lobe. Clinically the patient does have shortness of breath but is not having any fevers or any worsening respiratory symptoms per the patient. She is upset that she has been given makes pictures some of getting better and some of stable CT scans. Explained to her that her condition is very serious and she has extensive disease and is unclear if this is all related to COVID or if this a secondary etiology. I did offer her different options of trach air be 1 includes bronchoscopy to try to get additional diagnostic information versus empiric treatment with antibiotics and steroids. The patient is not comfortable this having any decisions and she feels that she is getting suboptimal care. She was talking about leaving against medical advice. I did explain to her that if she left against medical advice she could due to her high oxygen requirements. At this point will get additional blood work. I did give her the number to our office so she can given to her daughter and neck it explain better the situation to her family. Objective Data Labs CBC & Chem 7: 12/08/20 06:28 12/15/20 05:53 Labs: Laboratory Results - last 24 hr 12/14/20 12/14/20 12/14/20 11:19 16:04 16:25 VBG pH VBG pCO2 VBG pO2 VBG HCO3 VBG O2 Saturation VBG Base Excess Sodium 136 Potassium 5.5 H Chloride 102 Carbon Dioxide 27 Anion Gap 13 BUN 23 H Creatinine 1.18 Estim Creat Clear Calc 62.3 Estimated GFR 48 POC Glucose 91 217 H Random Glucose 231 H Calcium 9.0 Ferritin C-Reactive Protein B-Natriuretic Peptide 12/14/20 12/14/20 12/15/20 16:25 20:19 05:53 VBG pH VBG pCO2 VBG pO2 VBG HCO3 VBG O2 Saturation VBG Base Excess Sodium 140 Potassium 3.7 D Chloride 104 Carbon Dioxide 31 H Anion Gap 9 L BUN 20 H Creatinine 0.86 Estim Creat Clear Calc 85.5 Estimated GFR > 60 POC Glucose 180 H Random Glucose 72 Calcium 8.5 Ferritin 936 H C-Reactive Protein 5.93 H B-Natriuretic Peptide 100 12/15/20 12/15/20 07:13 08:31 VBG pH 7.38 VBG pCO2 61 VBG pO2 34 VBG HCO3 37 H VBG O2 Saturation 44.0 VBG Base Excess 9.8 Sodium Potassium Chloride Carbon Dioxide Anion Gap BUN Creatinine Estim Creat Clear Calc Estimated GFR POC Glucose 66 Random Glucose Calcium Ferritin C-Reactive Protein B-Natriuretic Peptide Microbiology Microbiology Results: Microbiology 11/18/20 19:02 Blood - Venous Blood Culture - Final No growth after 5 days. 11/18/20 19:01 Blood - Venous Blood Culture - Final No growth after 5 days. Review of Systems Constitutional: Denies night sweats Denies change in voice, Denies lip swelling, Denies mouth pain, Reports nasal c ongestion, Reports nasal discharge and Denies tongue swelling Cardiovascular: Denies chest pain, Reports leg edema and Reports dyspnea on exertion Respiratory: Reports dyspnea on exertion Gastrointestinal: Denies abdominal pain Musculoskeletal: Denies no additional musculoskeletal complaints Denies Neuro-related abnormal movements Psychiatric: Denies no additional psychiatric complaints Hematologic/Lymphatic: Denies easy bleeding and Denies lymphadenopathy Allergic/Immunologic: Denies lip swelling and Denies tongue swelling Physical Exam Vital Signs: Vital Signs: Last Vital Signs Temp 97.4 F 12/15/20 07:53 Pulse 76 12/15/20 08:22 Resp 18 12/15/20 07:53 BP 107/78 12/15/20 08:22 Pulse Ox 90 L 12/15/20 08:38 Body Mass Index 26.0 Const: General: alert Eyes: Pupils: Equal, round and reactive pupils present Neck: Neck: Yes normal visual inspection, Yes full ROM and Yes no lymphadenopathy Chest: Chest palpation & inspection: normal inspection of the chest Skin: General skin exam: rashes and/or lesions noted Neuro: Cranial nerves: Yes Equal, round and reactive pupils present Procedures Date of Service Date of Service: 12/15/20 Assessment and Plan Assessment and plan (1) Acute respiratory distress syndrome (ARDS) due to COVID-19 virus: Status: Acute (2) Pneumonia: Status: Acute (3) Cavitary lesion of lung: Status: Acute Assessment and Plan: The patient continues to be a serious condition. Still requiring high oxygen requirements. Based on a CT scan I am concerned that this will be a very slow recovery and not sure what her new baseline will be. There may be a acute on chronic process that may have worsen her respiratory status based on her worsening imaging studies. I did recommend for the patient to consider bronchoscopy although she is reluctant. Otherwise empiric antibiotics and Solu- Medrol. Recommendations: Blood work Continue oxygen supplementation to maintain a pulse ox above 90% CPT with flutter valve Consider bronchoscopy Empiric steroids antibiotics may be an alternative, after the blood work results she can be started on Solu-Medrol 60 mg IV q.8 and also recommend starting empiric course of antibiotics I am waiting further call from her daughter to further discuss her mother's condition Time Spent With Patient Time: Total time spent is greater than 50% in coordination of care (as documented) at patient's floor/unit and/or counseling patient: Time with patient: 25 - 35 minutes Progress Note: Quality Stroke Does the patient have a stroke diagnosis?: No
[2020-12-15 09:41] LABS: Baso%MD 0.2 %; Hematocrit 45.8 % (37-47); Hemoglobin 14.7 g/dl (12.0-16.0); IG%MD 1.5 %; Lymph%MD 9.7 %; Mean Corpuscular HGB Conc 32.1 g/dl (31.0-35.0); Mean Corpuscular Hemoglobin 27.1 pg (27.0-33.0); Mean Corpuscular Volume 84.5 fL (80-98); Mono%MD 3.8 %; Neut%MD 81.8 %; PLT CLUMP 1; Red Blood Count 5.42 X10*6/uL (4.20-5.50); Red Cell Distribution Width 16.8 % (11.0-16.0)
[2020-12-15 10:45] LABS: Band Neutrophils Percent 1 % (3-5); Eosinophils Percent Manual 1 % (0-4); Lymphocytes Percent Manual 14 % (20-40); Monocytes Percent Manual 2 % (2-11); Neutrophils Percent Manual 82 % (45-73)
[2020-12-15 10:46] LABS: Platelet Estimate DECREASED (NORMAL); Platelet Morphology Comment NORMAL; RBC Morphology NORMAL
[2020-12-15 10:49] LABS: Eosinophils Absolute Manual 0.1 X10*3/UL (0.0-0.8); Lymphocytes Absolute Manual 1.3 X10*3/uL (0.6-4.8); Monocytes Absolute Manual 0.2 X10*3/uL (0.0-1.2); Neutrophils Absolute Manual 7.8 X10*3/uL (2.2-7.9); White Blood Count 9.4 X10*3/uL (4.8-10.8)
[2020-12-15 10:50] LABS: Platelet Count 102 X10*3/uL (160-400)
[2020-12-15 11:03] LABS: Glucose, Whole Blood 129 mg/dL (60-115)
--- NOTE | 2020-12-15 11:36 | HO.PM.IMPN ---
Subjective Subjective Date of Service: 12/15/20 Interval History: Acute hypoxemic respiratory failure secondary to COVID. Review of Systems Patient still short of breath, but could able to speak. Currently seems comfortable on 15 L, desats very quickly with little titration. Denies any new complaint of chest pain or abdominal pain or fever or chills or nausea or vomiting Denies any weakness or numbness. Physical Exam Vital Signs: Vital Signs: Last Vital Signs Temp 97.4 F 12/15/20 07:53 Pulse 76 12/15/20 08:22 Resp 18 12/15/20 07:53 BP 107/78 12/15/20 08:22 Pulse Ox 90 L 12/15/20 08:38 Body Mass Index 26.0 Appearance: not in distress.? Eyes: Pupils equal, round and reactive to light.? cvs: [id number], [id number] , no murmur res: air entry slightly diminshed, no rales , has few rhonchii abd: no rebound or guarding ,nt, bs present. ext pulses present , no cyanosis ,Gait well balanced well coordinated. neuro: axo3 , nonfocal. Objective Data Active Medications Acetaminophen (Acetaminophen 325 Mg Tablet) 650 mg PO Q6H PRN PRN Reason: Pain, Mild (Pain Scale 1-3) Albuterol Sulfate (Albuterol Sulfate 90 Mcg 8 Gm Inhaler) 4 puff INHALE Q3H PRN PRN Reason: Shortness of Breath/Wheezing Ascorbic Acid (Ascorbic Acid 500 Mg Tablet) 500 mg PO DAILY [facility] Last Admin: 12/15/20 08:23 Dose: 500 mg Documented by: ANISHA Aspirin (Aspirin Enteric Coated 81 Mg Tablet.) 81 mg PO DAILY [facility] Last Admin: 12/15/20 08:22 Dose: 81 mg Documented by: ANISHA Atenolol (Atenolol 50 Mg Tablet) 50 mg PO DAILY [facility]; Protocol Last Admin: 12/15/20 08:22 Dose: 50 mg Documented by: ANISHA Atorvastatin Calcium (Atorvastatin Calcium 10 Mg Tablet) 10 mg PO DAILY [facility] Last Admin: 12/15/20 08:23 Dose: 10 mg Documented by: ANISHA Dextrose (Dextrose 50 % 25 Gm/50 Ml Vial) 25 gm IVPUSH Q15M PRN; Protocol PRN Reason: per Hypoglycemia Standing Ord. Divalproex Sodium (Divalproex Sodium 500 Mg Tablet.Dr) 500 mg PO BID [facility] Last Admin: 12/15/20 08:23 Dose: Not Given Documented by: ANISHA Non-Admin Reason: Patient Refused Docusate Sodium (Docusate Sodium 100 Mg Capsule) 100 mg PO DAILY PRN PRN Reason: Constipation Escitalopram Oxalate (Escitalopram Oxalate 20 Mg Tablet) 20 mg PO DAILY [facility] Last Admin: 12/15/20 08:22 Dose: 20 mg Documented by: ANISHA Famotidine (Famotidine 20 Mg Tablet) 40 mg PO BID [facility] Last Admin: 12/15/20 08:22 Dose: 40 mg Documented by: ANISHA Fluticasone Propionate (Fluticasone Propionate Nasal 16 Gm [place]) 1 spray NOSTRIL-B DAILY [facility] Last Admin: 12/15/20 08:23 Dose: 1 spray Documented by: ANISHA Glucose (Glucose Gel 15 Gm Gel..Gram.) 15 gm PO Q15M PRN; Protocol PRN Reason: per Hypoglycemia Standing Ord. Guaifenesin/Dextromethorphan (Guaifenesin Dm 200/20/10 Ml 10 Ml Syrup) 10 ml PO Q6H PRN PRN Reason: cough Heparin Sodium (Porcine) (Heparin Sodium,Porcine 5,000 Unit/Ml Vial) 5,000 unit SUBCUT Q8H [facility] Last Admin: 12/15/20 08:21 Dose: 5,000 unit Documented by: ANISHA Insulin Glargine (Insulin Glargine,Hum.Rec.Anlog 100 Unit/Ml 10 Ml Vial) 20 unit SUBCUT BEDTIME [facility] Last Admin: 12/14/20 21:14 Dose: 20 unit Documented by: VAIBHAV Insulin Human Lispro (Insulin Lispro 100 Unit/Ml 3 Ml Vial) 0 unit SUBCUT QIDACHS [facility]; Protocol Last Admin: 12/15/20 11:30 Dose: Not Given Documented by: ANISHA Non-Admin Reason: No Insulin Coverage Ondansetron HCl (Ondansetron Hcl 4 Mg/2 Ml Vial) 4 mg IVPUSH Q8H PRN PRN Reason: Nausea and Vomiting Pioglitazone HCl (Pioglitazone Hcl 15 Mg Tablet) 15 mg PO DAILY [facility] Last Admin: 12/15/20 08:22 Dose: 15 mg Documented by: ANISHA Prednisone (Prednisone 20 Mg Tablet) 20 mg PO DAILY [facility] Last Admin: 12/15/20 08:22 Dose: 20 mg Documented by: ANISHA Sodium Chloride (0.9 % Sodium Chloride Flush 3 Ml Syringe) 3 ml IVFLUSH QSHIFT [facility] Last Admin: 12/15/20 08:21 Dose: 3 ml Documented by: ANISHA Sodium Chloride (Sodium Chloride 0.65 % Nasal 44 Ml Sprbtl) 1 spray NOSTRIL-B Q1H PRN PRN Reason: Congestion Last Admin: 12/15/20 08:21 Dose: 1 spray Documented by: ANISHA Vitamin D (Cholecalciferol (Vitamin D3) 25 Mcg Tablet) 50 mcg PO DAILY [facility] Last Admin: 12/15/20 08:22 Dose: 50 mcg Documented by: ANISHA Zinc Sulfate (Zinc Sulfate 220 Mg Capsule) 220 mg PO DAILY [facility] Last Admin: 12/15/20 08:22 Dose: 220 mg Documented by: ANISHA Labs CBC & Chem 7: 12/15/20 09:11 12/15/20 05:53 Labs: Laboratory Results - last 24 hr 12/14/20 12/14/20 12/14/20 11:19 16:04 16:25 MCV MCH MCHC RDW Plt Count MPV Absolute Nucleated RBC Nucleated RBC % (auto) Neutrophils % (Manual) Band Neutrophils % Lymphocytes % (Manual) Monocytes % (Manual) Eosinophils % (Manual) Abs Neuts (Manual) Lymphocytes # (Manual) Monocytes # (Manual) Eosinophils # (Manual) Platelet Estimate Plt Morphology Comment RBC Morphology Macrocytosis VBG pH VBG pCO2 VBG pO2 VBG HCO3 VBG O2 Saturation VBG Base Excess Anion Gap 13 Estim Creat Clear Calc 62.3 Estimated GFR 48 POC Glucose 91 217 H Random Glucose 231 H Calcium 9.0 Ferritin C-Reactive Protein B-Natriuretic Peptide 12/14/20 12/14/20 12/15/20 16:25 20:19 05:53 MCV MCH MCHC RDW Plt Count MPV Absolute Nucleated RBC Nucleated RBC % (auto) Neutrophils % (Manual) Band Neutrophils % Lymphocytes % (Manual) Monocytes % (Manual) Eosinophils % (Manual) Abs Neuts (Manual) Lymphocytes # (Manual) Monocytes # (Manual) Eosinophils # (Manual) Platelet Estimate Plt Morphology Comment RBC Morphology Macrocytosis VBG pH VBG pCO2 VBG pO2 VBG HCO3 VBG O2 Saturation VBG Base Excess Anion Gap 9 L Estim Creat Clear Calc 85.5 Estimated GFR > 60 POC Glucose 180 H Random Glucose 72 Calcium 8.5 Ferritin 936 H C-Reactive Protein 5.93 H B-Natriuretic Peptide 100 12/15/20 12/15/20 12/15/20 07:13 08:31 09:11 MCV 84.5 MCH 27.1 MCHC 32.1 RDW 16.8 H Plt Count 102 L D MPV Not Reportable Absolute Nucleated RBC 0.000 Nucleated RBC % (auto) 0.0 Neutrophils % (Manual) 82 H Band Neutrophils % 1 L Lymphocytes % (Manual) 14 L Monocytes % (Manual) 2 Eosinophils % (Manual) 1 Abs Neuts (Manual) 7.8 Lymphocytes # (Manual) 1.3 Monocytes # (Manual) 0.2 Eosinophils # (Manual) 0.1 Platelet Estimate DECREASED Plt Morphology Comment NORMAL RBC Morphology NORMAL Macrocytosis SHOWER [employer]ENDANT VBG pH 7.38 VBG pCO2 61 VBG pO2 34 VBG HCO3 37 H VBG O2 Saturation 44.0 VBG Base Excess 9.8 Anion Gap Estim Creat Clear Calc Estimated GFR POC Glucose 66 Random Glucose Calcium Ferritin C-Reactive Protein B-Natriuretic Peptide 12/15/20 10:59 MCV MCH MCHC RDW Plt Count MPV Absolute Nucleated RBC Nucleated RBC % (auto) Neutrophils % (Manual) Band Neutrophils % Lymphocytes % (Manual) Monocytes % (Manual) Eosinophils % (Manual) Abs Neuts (Manual) Lymphocytes # (Manual) Monocytes # (Manual) Eosinophils # (Manual) Platelet Estimate Plt Morphology Comment RBC Morphology Macrocytosis VBG pH VBG pCO2 VBG pO2 VBG HCO3 VBG O2 Saturation VBG Base Excess Anion Gap Estim Creat Clear Calc Estimated GFR POC Glucose 129 H Random Glucose Calcium Ferritin C-Reactive Protein B-Natriuretic Peptide Assessment and Plan (1) Cavitary lung disease: Status: Acute (2) Acute on chronic respiratory failure with hypoxia: Status: Acute Assessment and Plan: 50-year-old female unvaccinated presents to the hospital with complaints of shortness of breath found to have COVID-19 pneumonia with viral sepsis 1.Acute hypoxic respiratory failure d/t covid 19, slow to wean still hypoxic and keep worsening CTA neg for pulm embolism , but has significant pulmonary disease question related to COVID Ferritin is better than before, CRP is in 5 range which is increased from before, IG G pending as well as COVID antibody also pending ABG also reviewed-pH is fine , has slight hypercarbia, has hypoxemia. completed? DExa and completed Remdesevir contineu pepcid 40 bid, vitc, Zinc,Prednisone for few more day, continue albuterol, prednisone ? pneumonia /post covid changes -added zosyn and iv steriods. 2. Hypertension--noted to have soft blood pressures on Norvasc and atenolol, therefore Norvasc discontinued, continue atenolol and follow BP, ?? losartan? held on admission due to PEREZ 3.PEREZ--now resolved was likely pre renal , avoid nephrotoxins 4. hyperkalemia? potassium elevated intermittently, likely due to hyperglycemia, will give? Kayexalate, continue to hold losartan 5.Diabetes--elevated blood sugars due to steroid, continue Lantus and sliding scale,continue Actos, ,at home takes metformin and Actos, follow blood sugar closely while steroids are being tapered. 6. Anxiety and depression continue estalopram 7. Hyperlipidemia: continue lipitor DVT prophylaxis Heparin subQ Quality Stroke Does the patient have a stroke diagnosis?: No VTE Prior VTE?: No VTE Risk Level:: Medical - moderate - high VTE Device Contraindication: Treatment Not Indicated VTE Drug Contraindication: N/A - Med Ordered
[2020-12-15] MEDS: methylPREDNISolone Sod Succ 40 MG/ML VIAL IVPUSH (12:29)
[2020-12-15 16:13] LABS: Glucose, Whole Blood 238 mg/dL (60-115)
[2020-12-15] MEDS: Piperacillin Sodium/Tazobactam 3.375 GM in 0.9 % Sodium Chloride 50 ML IV ×2 (16:46→20:14)
[2020-12-15] MEDS: methylPREDNISolone Sod Succ 40 MG/ML VIAL 60 MG IVPUSH ×2 (16:47→20:54)
[2020-12-15] MEDS: Insulin Lispro 100 UNIT/ML 3 ML VIAL SUBCUT ×2 (16:48→20:14)
[2020-12-15] MEDS: Enoxaparin Sodium 40 MG/0.4 ML SYRINGE SUBCUT (17:35)
--- NOTE | 2020-12-15 17:53 | PC.NURSE ---
Addendum entered by Edie Hernandez RN 12/15/20 18:54: pt able to void 500ml on own. reported to oncoming RN Original Note: PT made statement that she hasnt voided most of the day and hasnt felt he urge Bladder Scanned pt for 585ml RN educated pt on risk of CAUTI and how we dont want to have to use a catheter, pt very aware and agrees. Is attempting to void on own at the moment, will update.
[2020-12-15 19:55] LABS: Glucose, Whole Blood 215 mg/dL (60-115)
[2020-12-15] MEDS: Insulin Glargine,Hum.rec.anlog 100 UNIT/ML 10 ML VIAL 20 UNIT SUBCUT (20:15)
[2020-12-16] VITALS (7 sets, daily range): BP systolic 118–146; BP diastolic 76–81; PULSE 61–104; RESP 18–22; TEMP 35.5–37.1; O2SAT 88–100
[2020-12-16] MEDS: Piperacillin Sodium/Tazobactam 3.375 GM in 0.9 % Sodium Chloride 50 ML IV ×4 (03:05→21:25)
[2020-12-16] MEDS: methylPREDNISolone Sod Succ 40 MG/ML VIAL 60 MG IVPUSH ×4 (03:06→21:24)
[2020-12-16 07:22] LABS: Glucose, Whole Blood 146 mg/dL (60-115)
--- NOTE | 2020-12-16 09:20 | P.PNPL_ITS ---
Subjective Subjective Date of Service: 12/16/20 Interval history: The patient was seen on exam. She continues to be on 15 L nasal cannula. Saturation a little better. She was a Solu-Medrol and Zosyn based on the fact that she has a slight cavitary lesion in the left upper lobe area. Also extensive airspace disease. We did talk about bronchoscopy but she has deferred. Explained to her that if she is not better by early next week, then, consider bronchoscopy as a diagnostic and hopefully therapeutic procedure. Objective Data Labs CBC & Chem 7: 12/15/20 09:11 12/15/20 05:53 Labs: Laboratory Results - last 24 hr 12/15/20 12/15/20 12/15/20 09:11 10:59 16:08 WBC 9.4 RBC 5.42 Hgb 14.7 Hct 45.8 MCV 84.5 MCH 27.1 MCHC 32.1 RDW 16.8 H Plt Count 102 L D MPV Not Reportable Absolute Nucleated RBC 0.000 Nucleated RBC % (auto) 0.0 Neutrophils % (Manual) 82 H Band Neutrophils % 1 L Lymphocytes % (Manual) 14 L Monocytes % (Manual) 2 Eosinophils % (Manual) 1 Abs Neuts (Manual) 7.8 Lymphocytes # (Manual) 1.3 Monocytes # (Manual) 0.2 Eosinophils # (Manual) 0.1 Platelet Estimate DECREASED Plt Morphology Comment NORMAL RBC Morphology NORMAL Macrocytosis [employer] POC Glucose 129 H 238 H 12/15/20 12/16/20 19:51 07:19 WBC RBC Hgb Hct MCV MCH MCHC RDW Plt Count MPV Absolute Nucleated RBC Nucleated RBC % (auto) Neutrophils % (Manual) Band Neutrophils % Lymphocytes % (Manual) Monocytes % (Manual) Eosinophils % (Manual) Abs Neuts (Manual) Lymphocytes # (Manual) Monocytes # (Manual) Eosinophils # (Manual) Platelet Estimate Plt Morphology Comment RBC Morphology Macrocytosis POC Glucose 215 H 146 H Microbiology Microbiology Results: Microbiology 11/18/20 19:02 Blood - Venous Blood Culture - Final No growth after 5 days. 11/18/20 19:01 Blood - Venous Blood Culture - Final No growth after 5 days. Review of Systems Constitutional: Denies night sweats Denies change in voice, Denies lip swelling, Denies mouth pain, Reports nasal congestion, Reports nasal discharge and Denies tongue swelling Cardiovascular: Denies chest pain, Reports leg edema and Reports dyspnea on exertion Respiratory: Reports dyspnea on exertion Gastrointestinal: Denies abdominal pain Musculoskeletal: Denies no additional musculoskeletal complaints Denies Neuro-related abnormal movements Psychiatric: Denies no additional psychiatric complaints Hematologic/Lymphatic: Denies easy bleeding and Denies lymphadenopathy Allergic/Immunologic: Denies lip swelling and Denies tongue swelling Physical Exam Vital Signs: Vital Signs: Last Vital Signs Temp 96 F L 12/16/20 07:10 Pulse 70 12/16/20 07:10 Resp 20 12/16/20 07:10 BP 118/81 12/16/20 07:10 Pulse Ox 94 12/16/20 07:10 Body Mass Index 26.0 Const: General: alert Neck: Neck: Yes normal visual inspection, Yes full ROM and Yes no lymphadenopathy Chest: Chest palpation & inspection: normal inspection of the chest Resp: Auscultation: rales, diminished lung sounds and bronchial breath sounds Cardio: Rate: regular rate Rhythm: regular rhythm Heart sounds: S1 no rmal heart sound present and S2 normal heart sound present GI: Palpation (GI): Soft to palpation and nontender Auscultation: normal bowel sounds Skin: General skin exam: rashes and/or lesions noted Procedures Date of Service Date of Service: 12/16/20 Assessment and Plan Assessment and plan (1) Cavitary lesion of lung: Status: Acute (2) Pneumonia: Status: Acute (3) Acute respiratory distress syndrome (ARDS) due to COVID-19 virus: Status: Acute Assessment and Plan: Continue Solu-Medrol over the weekend Continue Zosyn for now Will work incentive spirometry If the patient is no better consider bronchoscopy Transition to Oxymizer pendant Time Spent With Patient Time: Total time spent is greater than 50% in coordination of care (as documented) at patient's floor/unit and/or counseling patient: Time with patient: 25 - 35 minutes Progress Note: Quality Stroke Does the patient have a stroke diagnosis?: No
[2020-12-16] MEDS: 0.9 % Sodium Chloride Flush 3 ML SYRINGE IVFLUSH ×3 (09:46→21:25)
[2020-12-16] MEDS: Cholecalciferol (Vitamin D3) 25 MCG TABLET 50 MCG PO (09:47)
[2020-12-16] MEDS: atenoloL 50 MG TABLET PO (09:47)
[2020-12-16] MEDS: Zinc Sulfate 220 MG CAPSULE PO (09:47)
[2020-12-16] MEDS: Famotidine 20 MG TABLET 40 MG PO ×2 (09:47→21:24)
[2020-12-16] MEDS: Atorvastatin Calcium 10 MG TABLET PO (09:47)
[2020-12-16] MEDS: Aspirin Enteric Coated 81 MG TABLET.DR PO (09:48)
[2020-12-16] MEDS: Ascorbic Acid 500 MG TABLET PO (09:48)
--- NOTE | 2020-12-16 11:18 | HO.PM.IMPN ---
Subjective Subjective Date of Service: 12/16/20 Interval History: Acute hypoxemic respiratory failure secondary to COVID. Review of Systems Still somewhat short of breath but could able to answer questions, denies any cough No fever overnight Denies any nausea or vomiting or abdominal pain Physical Exam Vital Signs: Vital Signs: Last Vital Signs Temp 96 F L 12/16/20 07:10 Pulse 70 12/16/20 09:47 Resp 20 12/16/20 07:10 BP 118/81 12/16/20 09:47 Pulse Ox 94 12/16/20 07:10 Body Mass Index 26.0 Appearance: not in distress.? Eyes: Pupils equal, round and reactive to light.? cvs: rrr, [id number] , no murmur res: air entry similar as yesterday , few sacttered rhonchii abd: no rebound or guarding ,nt, bs present. ext pulses present , no cyanosis ,Gait well balanced well coordinated. neuro: axo3 , nonfocal Objective Data Active Medications Acetaminophen (Acetaminophen 325 Mg Tablet) 650 mg PO Q6H PRN PRN Reason: Pain, Mild (Pain Scale 1-3) Albuterol Sulfate (Albuterol Sulfate 90 Mcg 8 Gm Inhaler) 4 puff INHALE Q3H PRN PRN Reason: Shortness of Breath/Wheezing Ascorbic Acid (Ascorbic Acid 500 Mg Tablet) 500 mg PO DAILY [facility] Last Admin: 12/16/20 09:48 Dose: 500 mg Documented by: SETH Aspirin (Aspirin Enteric Coated 81 Mg Tablet.) 81 mg PO DAILY [facility] Last Admin: 12/16/20 09:48 Dose: 81 mg Documented by: SETH Atenolol (Atenolol 50 Mg Tablet) 50 mg PO DAILY [facility]; Protocol Last Admin: 12/16/20 09:47 Dose: 50 mg Documented by: SETH Atorvastatin Calcium (Atorvastatin Calcium 10 Mg Tablet) 10 mg PO DAILY [facility] Last Admin: 12/16/20 09:47 Dose: 10 mg Documented by: SETH Dextrose (Dextrose 50 % 25 Gm/50 Ml Vial) 25 gm IVPUSH Q15M PRN; Protocol PRN Reason: per Hypoglycemia Standing Ord. Divalproex Sodium (Divalproex Sodium 500 Mg Tablet.) 500 mg PO BID [facility] Last Admin: 12/16/20 10:43 Dose: Not Given Documented by: SETH Non-Admin Reason: Patient Refused Docusate Sodium (Docusate Sodium 100 Mg Capsule) 100 mg PO DAILY PRN PRN Reason: Constipation Enoxaparin Sodium (Enoxaparin Sodium 40 Mg/0.4 Ml Syringe) 40 mg SUBCUT Q24H [facility] Last Admin: 12/15/20 17:35 Dose: 40 mg Documented by: ANISHA Escitalopram Oxalate (Escitalopram Oxalate 20 Mg Tablet) 20 mg PO DAILY [facility] Last Admin: 12/16/20 10:43 Dose: Not Given Documented by: SETH Non-Admin Reason: Patient Refused Famotidine (Famotidine 20 Mg Tablet) 40 mg PO BID [facility] Last Admin: 12/16/20 09:47 Dose: 40 mg Documented by: SETH Fluticasone Propionate (Fluticasone Propionate Nasal 16 Gm [place]) 1 spray NOSTRIL-B DAILY [facility] Last Admin: 12/15/20 08:23 Dose: 1 spray Documented by: ANISHA Glucose (Glucose Gel 15 Gm Gel..Gram.) 15 gm PO Q15M PRN; Protocol PRN Reason: per Hypoglycemia Standing Ord. Guaifenesin/Dextromethorphan (Guaifenesin Dm 200/20/10 Ml 10 Ml Syrup) 10 ml PO Q6H PRN PRN Reason: cough Piperacillin Sod/Tazobactam (Sod 3.375 gm/ Sodium Chloride) 50 mls @ 100 mls/hr IV Q6H [facility] Last Infusion: 12/16/20 11:07 Dose: 0 mls/hr Documented by: SETH Insulin Glargine (Insulin Glargine,Hum.Rec.Anlog 100 Unit/Ml 10 Ml Vial) 20 unit SUBCUT BEDTIME [facility] Last Admin: 12/15/20 20:15 Dose: 20 unit Documented by: KRISHNA Insulin Human Lispro (Insulin Lispro 100 Unit/Ml 3 Ml Vial) 0 unit SUBCUT QIDACHS [facility]; Protocol Last Admin: 12/16/20 09:05 Dose: Not Given Documented by: SETH Non-Admin Reason: No Insulin Coverage Methylprednisolone Sodium Succinate (Methylprednisolone Sod Succ 40 Mg/Ml Vial) 60 mg IVPUSH Q6H [facility] Last Admin: 12/16/20 09:48 Dose: 60 mg Documented by: SETH Ondansetron HCl (Ondansetron Hcl 4 Mg/2 Ml Vial) 4 mg IVPUSH Q8H PRN PRN Reason: Nausea and Vomiting Pioglitazone HCl (Pioglitazone Hcl 15 Mg Tablet) 15 mg PO DAILY [facility] Last Admin: 12/16/20 09:48 Dose: 15 mg Documented by: SETH Sodium Chloride (0.9 % Sodium Chloride Flush 3 Ml Syringe) 3 ml IVFLUSH QSHIFT [facility] Last Admin: 12/16/20 09:46 Dose: 3 ml Documented by: SETH Sodium Chloride (Sodium Chloride 0.65 % Nasal 44 Ml Sprbtl) 1 spray NOSTRIL-B Q1H PRN PRN Reason: Congestion Last Admin: 12/15/20 08:21 Dose: 1 spray Documented by: ANISHA Vitamin D (Cholecalciferol (Vitamin D3) 25 Mcg Tablet) 50 mcg PO DAILY [facility] Last Admin: 12/16/20 09:47 Dose: 50 mcg Documented by: SETH Zinc Sulfate (Zinc Sulfate 220 Mg Capsule) 220 mg PO DAILY [facility] Last Admin: 12/16/20 09:47 Dose: 220 mg Documented by: SETH Labs CBC & Chem 7: 12/15/20 09:11 12/15/20 05:53 Labs: Laboratory Results - last 24 hr 12/15/20 12/15/20 12/16/20 16:08 19:51 07:19 POC Glucose 238 H 215 H 146 H Assessment and Plan (1) Pneumonia: Status: Acute (2) Cavitary lesion of lung: Status: Acute Assessment and Plan: 50-year-old female unvaccinated presents to the hospital with complaints of shortness of breath found to have COVID-19 pneumonia with viral sepsis 1.Acute hypoxic respiratory failure d/t covid 19, slow to wean still hypoxicsimilar as yesterday CTA neg for pulm embolism , but has significant pulmonary disease question related to COVID Ferritin is better than before, CRP is in 5 range which is increased from before, IG G pending as well as COVID antibody also pending ABG also reviewed-pH is fine , has slight hypercarbia, has hypoxemia. completed? DExa and completed Remdesevir contineu pepcid 40 bid, vitc, Zinc,Prednisone for few more day, continue albuterol, prednisone ? pneumonia /post covid changes -on zosyn and? iv steriods.if does not improve then may need bronchoscopy 2. Hypertension--noted to have soft blood pressures on Norvasc and atenolol, therefore Norvasc discontinued, continue atenolol and follow BP, ?? losartan? held on admission due to PEREZ 3.PEREZ--now resolved was likely pre renal , avoid nephrotoxins 4. hyperkalemia? potassium elevated intermittently, likely due to hyperglycemia, will give? Kayexalate, continue to hold losartan 5.Diabetes--elevated blood sugars due to steroid, continue Lantus and sliding scale,continue Actos, ,at home takes metformin and Actos, follow blood sugar closely while steroids are being tapered. 6. Anxiety and depression continue estalopram 7. Hyperlipidemia: continue lipitor DVT prophylaxis Heparin subQ Quality Stroke Does the patient have a stroke diagnosis?: No VTE Prior VTE?: No VTE Risk Level:: Medical - moderate - high VTE Device Contraindication: Treatment Not Indicated VTE Drug Contraindication: N/A - Med Ordered
[2020-12-16 11:27] LABS: Glucose, Whole Blood 236 mg/dL (60-115)
[2020-12-16] MEDS: Insulin Lispro 100 UNIT/ML 3 ML VIAL SUBCUT ×3 (12:00→21:25)
[2020-12-16 16:14] LABS: Glucose, Whole Blood 190 mg/dL (60-115)
[2020-12-16] MEDS: Enoxaparin Sodium 40 MG/0.4 ML SYRINGE SUBCUT (16:45)
[2020-12-16 20:15] LABS: Glucose, Whole Blood 290 mg/dL (60-115)
[2020-12-16 21:11] LABS: Immunoglobulin G Subclass 1 318 mg/dL (382-929); Immunoglobulin G Subclass 2 293 mg/dL (241-700); Immunoglobulin G Subclass 3 62 mg/dL (22-178); Immunoglobulin G Subclass 4 23.2 mg/dL (4-86); Immunoglobulin G Total 710 mg/dL (600-1640)
[2020-12-16] MEDS: Insulin Glargine,Hum.rec.anlog 100 UNIT/ML 10 ML VIAL 20 UNIT SUBCUT (21:24)
[2020-12-17] VITALS (7 sets, daily range): BP systolic 127–158; BP diastolic 78–95; PULSE 65–103; RESP 16–22; TEMP 36.2–36.9; O2SAT 90–97
[2020-12-17] MEDS: Piperacillin Sodium/Tazobactam 3.375 GM in 0.9 % Sodium Chloride 50 ML IV ×4 (02:44→21:22)
[2020-12-17] MEDS: methylPREDNISolone Sod Succ 40 MG/ML VIAL 60 MG IVPUSH ×4 (02:44→21:20)
[2020-12-17 07:29] LABS: Glucose, Whole Blood 218 mg/dL (60-115)
[2020-12-17] MEDS: Escitalopram Oxalate 20 MG TABLET PO (08:29)
[2020-12-17] MEDS: Cholecalciferol (Vitamin D3) 25 MCG TABLET 50 MCG PO (08:29)
[2020-12-17] MEDS: Atorvastatin Calcium 10 MG TABLET PO (08:29)
[2020-12-17] MEDS: atenoloL 50 MG TABLET PO (08:30)
[2020-12-17] MEDS: Aspirin Enteric Coated 81 MG TABLET.DR PO (08:30)
[2020-12-17] MEDS: Zinc Sulfate 220 MG CAPSULE PO (08:30)
[2020-12-17] MEDS: Famotidine 20 MG TABLET 40 MG PO ×2 (08:30→21:21)
[2020-12-17] MEDS: Insulin Lispro 100 UNIT/ML 3 ML VIAL SUBCUT ×4 (08:31→21:22)
[2020-12-17] MEDS: Ascorbic Acid 500 MG TABLET PO (08:31)
[2020-12-17] MEDS: 0.9 % Sodium Chloride Flush 3 ML SYRINGE IVFLUSH ×3 (08:31→21:22)
--- NOTE | 2020-12-17 11:49 | HO.PM.IMPN ---
Subjective Subjective Date of Service: 12/17/20 Interval History: Acute hypoxemic respiratory failure secondary to COVID. Review of Systems Still somewhat short of breath but could able to answer questions, denies any cough No fever overnight Denies any nausea or vomiting or abdominal pain Physical Exam Vital Signs: Vital Signs: Last Vital Signs Temp 97.6 F 12/17/20 08:00 Pulse 103 H 12/17/20 08:30 Resp 22 H 12/17/20 08:00 BP 152/92 H 12/17/20 08:30 Pulse Ox 91 L 12/17/20 03:59 Body Mass Index 26.0 ?Appearance: not in distress.? Eyes: Pupils equal, round and reactive to light.? cvs: rrr, [id number] , no murmur res: air entry slightly improving , few sacttered rhonchii abd: no rebound or guarding ,nt, bs present. ext pulses present , no cyanosis ,Gait well balanced well coordinated. neuro: axo3 , nonfocal Objective Data Active Medications Acetaminophen (Acetaminophen 325 Mg Tablet) 650 mg PO Q6H PRN PRN Reason: Pain, Mild (Pain Scale 1-3) Albuterol Sulfate (Albuterol Sulfate 90 Mcg 8 Gm Inhaler) 4 puff INHALE Q3H PRN PRN Reason: Shortness of Breath/Wheezing Ascorbic Acid (Ascorbic Acid 500 Mg Tablet) 500 mg PO DAILY [facility] Last Admin: 12/17/20 08:31 Dose: 500 mg Documented by: FARIDA Aspirin (Aspirin Enteric Coated 81 Mg Tablet.) 81 mg PO DAILY [facility] Last Admin: 12/17/20 08:30 Dose: 81 mg Documented by: FARIDA Atenolol (Atenolol 50 Mg Tablet) 50 mg PO DAILY [facility]; Protocol Last Admin: 12/17/20 08:30 Dose: 50 mg Documented by: FARIDA Atorvastatin Calcium (Atorvastatin Calcium 10 Mg Tablet) 10 mg PO DAILY [facility] Last Admin: 12/17/20 08:29 Dose: 10 mg Documented by: FARIDA Dextrose (Dextrose 50 % 25 Gm/50 Ml Vial) 25 gm IVPUSH Q15M PRN; Protocol PRN Reason: per Hypoglycemia Standing Ord. Divalproex Sodium (Divalproex Sodium 500 Mg Tablet.) 500 mg PO BID [facility] Last Admin: 12/17/20 08:30 Dose: Not Given Documented by: FARIDA Non-Admin Reason: Administered by Alternate Route Docusate Sodium (Docusate Sodium 100 Mg Capsule) 100 mg PO DAILY PRN PRN Reason: Constipation Enoxaparin Sodium (Enoxaparin Sodium 40 Mg/0.4 Ml Syringe) 40 mg SUBCUT Q24H [facility] Last Admin: 12/16/20 16:45 Dose: 40 mg Documented by: BROHan Escitalopram Oxalate (Escitalopram Oxalate 20 Mg Tablet) 20 mg PO DAILY [facility] Last Admin: 12/17/20 08:29 Dose: 20 mg Documented by: FARIDA Famotidine (Famotidine 20 Mg Tablet) 40 mg PO BID [facility] Last Admin: 12/17/20 08:30 Dose: 40 mg Documented by: FARIDA Fluticasone Propionate (Fluticasone Propionate Nasal 16 Gm [place]) 1 spray NOSTRIL-B DAILY [facility] Last Admin: 12/17/20 08:40 Dose: Not Given Documented by: FARIDA Non-Admin Reason: Med Not Available Glucose (Glucose Gel 15 Gm Gel..Gram.) 15 gm PO Q15M PRN; Protocol PRN Reason: per Hypoglycemia Standing Ord. Guaifenesin/Dextromethorphan (Guaifenesin Dm 200/20/10 Ml 10 Ml Syrup) 10 ml PO Q6H PRN PRN Reason: cough Piperacillin Sod/Tazobactam (Sod 3.375 gm/ Sodium Chloride) 50 mls @ 100 mls/hr IV Q6H [facility] Last Infusion: 12/17/20 09:02 Dose: 0 mls/hr Documented by: FARIDA Insulin Glargine (Insulin Glargine,Hum.Rec.Anlog 100 Unit/Ml 10 Ml Vial) 20 unit SUBCUT BEDTIME [facility] Last Admin: 12/16/20 21:24 Dose: 20 unit Documented by: AMYOIC Insulin Human Lispro (Insulin Lispro 100 Unit/Ml 3 Ml Vial) 0 unit SUBCUT QIDACHS [facility]; Protocol Last Admin: 12/17/20 08:31 Dose: 8 unit Documented by: FARIDA Methylprednisolone Sodium Succinate (Methylprednisolone Sod Succ 40 Mg/Ml Vial) 60 mg IVPUSH Q6H [facility] Last Admin: 12/17/20 08:31 Dose: 60 mg Documented by: FARIDA Ondansetron HCl (Ondansetron Hcl 4 Mg/2 Ml Vial) 4 mg IVPUSH Q8H PRN PRN Reason: Nausea and Vomiting Pioglitazone HCl (Pioglitazone Hcl 15 Mg Tablet) 15 mg PO DAILY [facility] Last Admin: 12/17/20 08:29 Dose: 15 mg Documented by: FARIDA Sodium Chloride (0.9 % Sodium Chloride Flush 3 Ml Syringe) 3 ml IVFLUSH QSHIFT [facility] Last Admin: 12/17/20 08:31 Dose: 3 ml Documented by: FARIDA Sodium Chloride (Sodium Chloride 0.65 % Nasal 44 Ml Sprbtl) 1 spray NOSTRIL-B Q1H PRN PRN Reason: Congestion Last Admin: 12/15/20 08:21 Dose: 1 spray Documented by: ANISHA Vitamin D (Cholecalciferol (Vitamin D3) 25 Mcg Tablet) 50 mcg PO DAILY [facility] Last Admin: 12/17/20 08:29 Dose: 50 mcg Documented by: FARIDA Zinc Sulfate (Zinc Sulfate 220 Mg Capsule) 220 mg PO DAILY [facility] Last Admin: 12/17/20 08:30 Dose: 220 mg Documented by: FARIDA Labs CBC & Chem 7: 12/15/20 09:11 12/15/20 05:53 Labs: Laboratory Results - last 24 hr 12/15/20 12/16/20 12/16/20 05:53 16:10 20:07 POC Glucose 190 H 290 H IgG Total 710 IgG Subclass 1 318 L IgG Subclass 2 293 IgG Subclass 3 62 IgG Subclass 4 23.2 12/17/20 07:20 POC Glucose 218 H IgG Total IgG Subclass 1 IgG Subclass 2 IgG Subclass 3 IgG Subclass 4 Assessment and Plan (1) Cavitary lesion of lung: Status: Acute (2) Acute respiratory distress syndrome (ARDS) due to COVID-19 virus: Status: Acute Assessment and Plan: 50-year-old female unvaccinated presents to the hospital with complaints of shortness of breath found to have COVID-19 pneumonia with viral sepsis 1.Acute hypoxic respiratory failure d/t covid 19, slow to wean still hypoxicsimilar as yesterday CTA neg for pulm embolism , but has significant pulmonary disease question related to COVID Ferritin is better than before, CRP is in 5 range which is increased from before, IG G pending as well as COVID antibody also pending completed? DExa and completed Remdesevir contineu pepcid 40 bid, vitc, Zinc,Prednisone for few more day, continue albuterol, prednisone ? pneumonia /post covid changes -on zosyn and? iv steriods.if does not improve then? may need bronchoscopy 2. Hypertension-fluctating continue atenolol ?? losartan? held on admission due to PEREZ 3.PEREZ--now resolved was likely pre renal , avoid nephrotoxins 4. hyperkalemia? potassium elevated intermittently, likely due to hyperglycemia, improved ? Kayexalate, continue to hold losartan 5.Diabetes--fs in 130-200's range elevated blood sugars due to steroid, continue Lantus and sliding scale,continue Actos, ,at home takes metformin and Actos 6. Anxiety and depression continue estalopram 7. Hyperlipidemia: continue lipitor DVT prophylaxis Heparin subQ Quality Stroke Does the patient have a stroke diagnosis?: No VTE Prior VTE?: No VTE Risk Level:: Medical - moderate - high VTE Device Contraindication: Treatment Not Indicated VTE Drug Contraindication: N/A - Med Ordered
[2020-12-17 11:59] LABS: Glucose, Whole Blood 261 mg/dL (60-115)
[2020-12-17 16:02] LABS: Glucose, Whole Blood 187 mg/dL (60-115)
[2020-12-17] MEDS: Enoxaparin Sodium 40 MG/0.4 ML SYRINGE SUBCUT (16:33)
[2020-12-17 19:55] LABS: Glucose, Whole Blood 250 mg/dL (60-115)
[2020-12-17] MEDS: Insulin Glargine,Hum.rec.anlog 100 UNIT/ML 10 ML VIAL 20 UNIT SUBCUT (21:22)
[2020-12-18] VITALS (8 sets, daily range): BP systolic 132–154; BP diastolic 84–93; PULSE 65–100; RESP 16–20; TEMP 36.2–37.3; O2SAT 82–94
[2020-12-18] MEDS: Piperacillin Sodium/Tazobactam 3.375 GM in 0.9 % Sodium Chloride 50 ML IV ×4 (04:14→20:08)
[2020-12-18] MEDS: methylPREDNISolone Sod Succ 40 MG/ML VIAL 60 MG IVPUSH (04:14)
[2020-12-18 06:45] LABS: Hematocrit 32.4 % (37-47); Hemoglobin 10.7 g/dl (12.0-16.0)
[2020-12-18 07:32] LABS: Glucose, Whole Blood 179 mg/dL (60-115)
[2020-12-18 07:54] LABS: SARS COV2 IgG Positive (Negative)
[2020-12-18 08:12] LABS: Platelet Count 158 X10*3/uL (160-400)
[2020-12-18] MEDS: Zinc Sulfate 220 MG CAPSULE PO (08:17)
[2020-12-18] MEDS: Aspirin Enteric Coated 81 MG TABLET.DR PO (08:17)
[2020-12-18] MEDS: Atorvastatin Calcium 10 MG TABLET PO (08:17)
[2020-12-18] MEDS: Famotidine 20 MG TABLET 40 MG PO ×2 (08:17→20:09)
[2020-12-18] MEDS: Cholecalciferol (Vitamin D3) 25 MCG TABLET 50 MCG PO (08:17)
[2020-12-18] MEDS: Escitalopram Oxalate 20 MG TABLET PO (08:18)
[2020-12-18] MEDS: Ascorbic Acid 500 MG TABLET PO (08:18)
[2020-12-18] MEDS: atenoloL 50 MG TABLET PO (08:18)
[2020-12-18] MEDS: Insulin Lispro 100 UNIT/ML 3 ML VIAL SUBCUT ×4 (08:19→20:09)
[2020-12-18] MEDS: 0.9 % Sodium Chloride Flush 3 ML SYRINGE IVFLUSH ×3 (08:19→20:09)
[2020-12-18] MEDS: Fluticasone Propionate Nasal 16 GM SPRAY 1 SPRAY NOSTRIL-B (08:31)
[2020-12-18 08:47] LABS: Hematocrit 34.6 % (37-47); Hemoglobin 11.4 g/dl (12.0-16.0); Mean Corpuscular HGB Conc 32.9 g/dl (31.0-35.0); Mean Corpuscular Hemoglobin 27.3 pg (27.0-33.0); Mean Platelet Volume 10.9 fL (9.4-12.3); Platelet Count 166 X10*3/uL (160-400); Red Blood Count 4.17 X10*6/uL (4.20-5.50); Red Cell Distribution Width 15.7 % (11.0-16.0); White Blood Count 10.6 X10*3/uL (4.8-10.8)
[2020-12-18 09:09] LABS: Iron 101 mcg/dL (30-160); Percent Iron Saturation 43 % (15-50); Total Iron Binding Capacity 234 mcg/dL (228-428); Unsaturated Iron Binding 133 ug/dL
--- NOTE | 2020-12-18 10:09 | HO.PM.IMPN ---
Subjective Subjective Date of Service: 12/18/20 Interval History: Acute hypoxemic respiratory failure secondary to COVID. Review of Systems sob seems improving, denies any cough No fever overnight Denies any nausea or vomiting or abdominal pain Physical Exam Vital Signs: Vital Signs: Last Vital Signs Temp 99.2 F 12/18/20 07:34 Pulse 89 12/18/20 07:34 Resp 20 12/18/20 07:34 BP 147/93 H 12/18/20 07:34 Pulse Ox 82 L 12/18/20 07:34 Body Mass Index 26.0 Appearance: not in distress.? Eyes: Pupils equal, round and reactive to light.? cvs: [id number], [id number] , no murmur res: air entry slightly improving , few sacttered rhonchii abd: no rebound or guarding ,nt, bs present. ext pulses present , no cyanosis ,Gait well balanced well coordinated. neuro: axo3 , nonfocal Objective Data Active Medications Acetaminophen (Acetaminophen 325 Mg Tablet) 650 mg PO Q6H PRN PRN Reason: Pain, Mild (Pain Scale 1-3) Albuterol Sulfate (Albuterol Sulfate 90 Mcg 8 Gm Inhaler) 4 puff INHALE Q3H PRN PRN Reason: Shortness of Breath/Wheezing Ascorbic Acid (Ascorbic Acid 500 Mg Tablet) 500 mg PO DAILY [facility] Last Admin: 12/18/20 08:18 Dose: 500 mg Documented by: KAYKAY Aspirin (Aspirin Enteric Coated 81 Mg Tablet.) 81 mg PO DAILY [facility] Last Admin: 12/18/20 08:17 Dose: 81 mg Documented by: KAYKAY Atenolol (Atenolol 50 Mg Tablet) 50 mg PO DAILY [facility]; Protocol Last Admin: 12/18/20 08:18 Dose: 50 mg Documented by: KAYKAY Atorvastatin Calcium (Atorvastatin Calcium 10 Mg Tablet) 10 mg PO DAILY [facility] Last Admin: 12/18/20 08:17 Dose: 10 mg Documented by: KAYKAY Dextrose (Dextrose 50 % 25 Gm/50 Ml Vial) 25 gm IVPUSH Q15M PRN; Protocol PRN Reason: per Hypoglycemia Standing Ord. Divalproex Sodium (Divalproex Sodium 500 Mg Tablet.) 500 mg PO BID [facility] Last Admin: 12/18/20 08:34 Dose: Not Given Documented by: KAYKAY Non-Admin Reason: Patient Refused Docusate Sodium (Docusate Sodium 100 Mg Capsule) 100 mg PO DAILY PRN PRN Reason: Constipation Enoxaparin Sodium (Enoxaparin Sodium 40 Mg/0.4 Ml Syringe) 40 mg SUBCUT Q24H [facility] Last Admin: 12/17/20 16:33 Dose: 40 mg Documented by: IGLESM Escitalopram Oxalate (Escitalopram Oxalate 20 Mg Tablet) 20 mg PO DAILY [facility] Last Admin: 12/18/20 08:18 Dose: 20 mg Documented by: KAYKAY Famotidine (Famotidine 20 Mg Tablet) 40 mg PO BID [facility] Last Admin: 12/18/20 08:17 Dose: 40 mg Documented by: KAYKAY Fluticasone Propionate (Fluticasone Propionate Nasal 16 Gm [place]) 1 spray NOSTRIL-B DAILY [facility] Last Admin: 12/18/20 08:31 Dose: 1 spray Documented by: KAYKAY Glucose (Glucose Gel 15 Gm Gel..Gram.) 15 gm PO Q15M PRN; Protocol PRN Reason: per Hypoglycemia Standing Ord. Guaifenesin/Dextromethorphan (Guaifenesin Dm 200/20/10 Ml 10 Ml Syrup) 10 ml PO Q6H PRN PRN Reason: cough Piperacillin Sod/Tazobactam (Sod 3.375 gm/ Sodium Chloride) 50 mls @ 100 mls/hr IV Q6H [facility] Last Infusion: 12/18/20 09:25 Dose: 100 mls/hr Documented by: KAYKAY Insulin Glargine (Insulin Glargine,Hum.Rec.Anlog 100 Unit/Ml 10 Ml Vial) 20 unit SUBCUT BEDTIME [facility] Last Admin: 12/17/20 21:22 Dose: 20 unit Documented by: ANTOIC Insulin Human Lispro (Insulin Lispro 100 Unit/Ml 3 Ml Vial) 0 unit SUBCUT QIDACHS [facility]; Protocol Last Admin: 12/18/20 08:19 Dose: 4 unit Documented by: KAYKAY Methylprednisolone Sodium Succinate (Methylprednisolone Sod Succ 125 Mg/2 Ml Vial) 60 mg IVPUSH Q8H [facility] Ondansetron HCl (Ondansetron Hcl 4 Mg/2 Ml Vial) 4 mg IVPUSH Q8H PRN PRN Reason: Nausea and Vomiting Pioglitazone HCl (Pioglitazone Hcl 15 Mg Tablet) 15 mg PO DAILY [facility] Last Admin: 12/18/20 08:17 Dose: 15 mg Documented by: KAYKAY Sodium Chloride (0.9 % Sodium Chloride Flush 3 Ml Syringe) 3 ml IVFLUSH QSHIFT [facility] Last Admin: 12/18/20 08:19 Dose: 3 ml Documented by: KAYKAY Sodium Chloride (Sodium Chloride 0.65 % Nasal 44 Ml Sprbtl) 1 spray NOSTRIL-B Q1H PRN PRN Reason: Congestion Last Admin: 12/15/20 08:21 Dose: 1 spray Documented by: ANISHA Vitamin D (Cholecalciferol (Vitamin D3) 25 Mcg Tablet) 50 mcg PO DAILY [facility] Last Admin: 12/18/20 08:17 Dose: 50 mcg Documented by: KAYKAY Zinc Sulfate (Zinc Sulfate 220 Mg Capsule) 220 mg PO DAILY [facility] Last Admin: 12/18/20 08:17 Dose: 220 mg Documented by: KAYKAY Labs CBC & Chem 7: 12/18/20 08:36 12/15/20 05:53 Labs: Laboratory Results - last 24 hr 12/15/20 12/17/20 12/17/20 05:53 11:54 15:51 MCV MCH MCHC RDW Plt Count MPV Absolute Nucleated RBC Nucleated RBC % (auto) POC Glucose 261 H 187 H Iron TIBC % Saturation Unsat Iron Binding SARS-CoV-2 IgG Ab Positive 12/17/20 12/18/20 12/18/20 19:52 06:19 07:18 MCV MCH MCHC RDW Plt Count 158 L D MPV Absolute Nucleated RBC Nucleated RBC % (auto) POC Glucose 250 H 179 H Iron TIBC % Saturation Unsat Iron Binding SARS-CoV-2 IgG Ab 12/18/20 12/18/20 08:36 08:36 MCV 83.0 MCH 27.3 MCHC 32.9 RDW 15.7 Plt Count 166 MPV 10.9 Absolute Nucleated RBC 0.000 Nucleated RBC % (auto) 0.0 POC Glucose Iron 101 TIBC 234 % Saturation 43 Unsat Iron Binding 133 SARS-CoV-2 IgG Ab Assessment and Plan (1) Cavitary lesion of lung: Status: Acute (2) Cavitary lung disease: Status: Acute (3) Pneumonia: Status: Acute Assessment and Plan: 50-year-old female unvaccinated presents to the hospital with complaints of shortness of breath found to have COVID-19 pneumonia with viral sepsis 1.Acute hypoxic respiratory failure d/t covid 19, slow to wean still hypoxicsimilar as yesterday CTA neg for pulm embolism , but has significant pulmonary disease question related to COVID Ferritin is better than before, CRP is in 5 range which is increased from before, IG G pending as well as COVID antibody also pending completed? DExa and completed Remdesevir contineu pepcid 40 bid, vitc, Zinc,Prednisone for few more day, continue albuterol, prednisone ? pneumonia /post covid changes -on zosyn day4 and? iv steriods tapered to 60 mg q8hr day4 .if does not improve then? may need bronchoscopy oxygen demand slowing going down to 8 liter now 2. Hypertension-fluctating continue atenolol ?? losartan? held on admission due to PEREZ 3.PEREZ--now resolved was likely pre renal , avoid nephrotoxins 4. hyperkalemia? potassium elevated intermittently, likely due to hyperglycemia, improved ? Kayexalate, continue to hold losartan 5.Diabetes--fs in 190-220's range elevated blood sugars due to steroid, continue Lantus and sliding scale,continue Actos, ,at home takes metformin and Actos 6. Anxiety and depression continue estalopram. 7. Hyperlipidemia: continue lipitor 8. Anemia normochromic: she says she had anemia in the past. Denies any melena or ana rosa GI bleeding or any abdominal pain. H&H stable around 11.4 Iron panel and B12, folate ordered Monitor CBC. DVT prophylaxis Heparin subQ Quality Stroke Does the patient have a stroke diagnosis?: No VTE Prior VTE?: No VTE Risk Level:: Medical - moderate - high VTE Device Contraindication: Treatment Not Indicated VTE Drug Contraindication: N/A - Med Ordered
[2020-12-18 11:23] LABS: Glucose, Whole Blood 285 mg/dL (60-115)
[2020-12-18] MEDS: methylPREDNISolone Sod Succ 125 MG/2 ML VIAL 60 MG IVPUSH ×2 (12:02→20:08)
--- NOTE | 2020-12-18 12:42 | PM.PNPUL ---
Subjective Subjective Date of Service: 12/18/20 Interval history: Seen and examined. Doing better. Decreasing oxygen needs. Objective Data Labs CBC & Chem 7: 12/18/20 08:36 12/15/20 05:53 Labs: Laboratory Results - last 24 hr 12/15/20 12/17/20 12/17/20 05:53 15:51 19:52 WBC RBC Hgb Hct MCV MCH MCHC RDW Plt Count MPV Absolute Nucleated RBC Nucleated RBC % (auto) POC Glucose 187 H 250 H Iron TIBC % Saturation Unsat Iron Binding SARS-CoV-2 IgG Ab Positive 12/18/20 12/18/20 12/18/20 06:19 07:18 08:36 WBC 10.6 RBC 4.17 L D Hgb 10.7 L D 11.4 L Hct 32.4 L D 34.6 L MCV 83.0 MCH 27.3 MCHC 32.9 RDW 15.7 Plt Count 158 L D 166 MPV 10.9 Absolute Nucleated RBC 0.000 Nucleated RBC % (auto) 0.0 POC Glucose 179 H Iron TIBC % Saturation Unsat Iron Binding SARS-CoV-2 IgG Ab 12/18/20 12/18/20 08:36 11:08 WBC RBC Hgb Hct MCV MCH MCHC RDW Plt Count MPV Absolute Nucleated RBC Nucleated RBC % (auto) POC Glucose 285 H Iron 101 TIBC 234 % Saturation 43 Unsat Iron Binding 133 SARS-CoV-2 IgG Ab Microbiology Microbiology Results: Microbiology 11/18/20 19:02 Blood - Venous Blood Culture - Final No growth after 5 days. 11/18/20 19:01 Blood - Venous Blood Culture - Final No growth after 5 days. Review of Systems Constitutional: Denies night sweats Denies change in voice, Denies lip swelling, Denies mouth pain, Reports nasal congestion, Reports nasal discharge and Denies tongue swelling Cardiovascular: Denies chest pain, Reports leg edema and Reports dyspnea on exertion Respiratory: Reports dyspnea on exertion Gastrointestinal: Denies abdominal pain Musculoskeletal: Denies no additional musculoskeletal complaints Denies Neuro-related abnormal movements Psychiatric: Denies no additional psychiatric complaints Hematologic/Lymphatic: Denies easy bleeding and Denies lymphadenopathy Allergic/Immunologic: Denies lip swelling and Denies tongue swelling Physical Exam Vital Signs: Vital Signs: Last Vital Signs Temp 98.2 F 12/18/20 11:31 Pulse 74 12/18/20 11:31 Resp 20 12/18/20 11:31 BP 132/87 12/18/20 11:31 Pulse Ox 84 L 12/18/20 11:31 Body Mass Index 26.0 Const: General: alert Neck: Neck: Yes normal visual inspection, Yes full ROM and Yes no lymphadenopathy Chest: Chest palpation & inspection: normal inspection of the chest Resp: Auscultation: diminished lung sounds Cardio: Rate: regular rate Rhythm: regular rhythm Heart sounds: S1 normal heart sound present and S2 normal heart sound present GI: Palpation (GI): Soft to palpation and nontender Auscultation: normal bowel sounds Skin: General skin exam: rashes and/or lesions noted Extrem: General: Yes edema Procedures Date of Service Date of Service: 12/18/20 Assessment and Plan Assessment and plan (1) Pneumonia: Status: Acute (2) Acute respiratory distress syndrome (ARDS) due to COVID-19 virus: Status: Acute (3) Cavitary lesion of lung: Status: Acute (4) Lower extremity edema: Status: Acute Assessment and Plan: Lasix 20mg IV x 1 OK to switch to PO augmentin OK to switch to PO prednsisome ISS/OOB to chair Would benefit from an oximizer pendednt Time Spent With Patient Time: Total time spent is greater than 50% in coordination of care (as documented) at patient's floor/unit and/or counseling patient: Time with patient: 25 - 35 minutes Progress Note: Quality Stroke Does the patient have a stroke diagnosis?: No
[2020-12-18] MEDS: Furosemide 20 MG/2 ML VIAL IVPUSH (13:38)
[2020-12-18 16:12] LABS: Glucose, Whole Blood 306 mg/dL (60-115)
[2020-12-18] MEDS: Enoxaparin Sodium 40 MG/0.4 ML SYRINGE SUBCUT (16:28)
[2020-12-18 20:02] LABS: Glucose, Whole Blood 228 mg/dL (60-115)
[2020-12-18] MEDS: Insulin Glargine,Hum.rec.anlog 100 UNIT/ML 10 ML VIAL 20 UNIT SUBCUT (20:09)
[2020-12-19] VITALS (7 sets, daily range): BP systolic 138–168; BP diastolic 71–97; PULSE 60–71; RESP 19–20; TEMP 36.3–36.7; O2SAT 87–94
[2020-12-19] MEDS: methylPREDNISolone Sod Succ 125 MG/2 ML VIAL 60 MG IVPUSH ×2 (03:25→16:25)
[2020-12-19] MEDS: Piperacillin Sodium/Tazobactam 3.375 GM in 0.9 % Sodium Chloride 50 ML IV ×2 (03:26→09:32)
[2020-12-19 07:12] LABS: Glucose, Whole Blood 137 mg/dL (60-115)
[2020-12-19] MEDS: Fluticasone Propionate Nasal 16 GM SPRAY 1 SPRAY NOSTRIL-B (09:31)
[2020-12-19] MEDS: Sodium Chloride 0.65 % Nasal 44 ML SPRBTL 1 SPRAY NOSTRIL-B (09:31)
[2020-12-19] MEDS: Atorvastatin Calcium 10 MG TABLET PO (09:32)
[2020-12-19] MEDS: Famotidine 20 MG TABLET 40 MG PO ×2 (09:32→20:02)
[2020-12-19] MEDS: Cholecalciferol (Vitamin D3) 25 MCG TABLET 50 MCG PO (09:32)
[2020-12-19] MEDS: Escitalopram Oxalate 20 MG TABLET PO (09:32)
[2020-12-19] MEDS: Zinc Sulfate 220 MG CAPSULE PO (09:32)
[2020-12-19] MEDS: Ascorbic Acid 500 MG TABLET PO (09:32)
[2020-12-19] MEDS: atenoloL 50 MG TABLET PO (09:32)
[2020-12-19] MEDS: Aspirin Enteric Coated 81 MG TABLET.DR PO (09:32)
[2020-12-19 09:33] LABS: Vitamin B12 544 pg/mL (200-900)
[2020-12-19] MEDS: 0.9 % Sodium Chloride Flush 3 ML SYRINGE IVFLUSH ×3 (09:33→20:03)
[2020-12-19 11:08] LABS: Glucose, Whole Blood 256 mg/dL (60-115)
[2020-12-19] MEDS: Insulin Lispro 100 UNIT/ML 3 ML VIAL SUBCUT ×3 (11:19→20:03)
--- NOTE | 2020-12-19 12:18 | P.PNIM_ITS ---
Subjective Subjective Date of Service: 12/19/20 Interval History: acute hypoxemic respiratory failure Review of Systems Shortness of breath seems improving slowly, still requires 6-8 L oxygen Denies any chest pain or abdominal pain or fever chills Physical Exam Vital Signs: Vital Signs: Last Vital Signs Temp 97.6 F 12/19/20 11:25 Pulse 68 12/19/20 11:25 Resp 20 12/19/20 11:25 BP 138/94 H 12/19/20 11:25 Pulse Ox 87 L 12/19/20 11:25 Body Mass Index 26.0 Appearance: not in distress.? Eyes: Pupils equal, round and reactive to light.? cvs: [id number], [id number] , no murmur res: air entry slightly improving , few sacttered rhonchii abd: no rebound or guarding ,nt, bs present. ext pulses present , no cyanosis ,Gait well balanced well coordinated. neuro: axo3 , nonfocal Objective Data Active Medications Acetaminophen (Acetaminophen 325 Mg Tablet) 650 mg PO Q6H PRN PRN Reason: Pain, Mild (Pain Scale 1-3) Albuterol Sulfate (Albuterol Sulfate 90 Mcg 8 Gm Inhaler) 4 puff INHALE Q3H PRN PRN Reason: Shortness of Breath/Wheezing Ascorbic Acid (Ascorbic Acid 500 Mg Tablet) 500 mg PO DAILY [facility] Last Admin: 12/19/20 09:32 Dose: 500 mg Documented by: DARRELL Aspirin (Aspirin Enteric Coated 81 Mg Tablet.) 81 mg PO DAILY [facility] Last Admin: 12/19/20 09:32 Dose: 81 mg Documented by: DARRELL Atenolol (Atenolol 50 Mg Tablet) 50 mg PO DAILY [facility]; Protocol Last Admin: 12/19/20 09:32 Dose: 50 mg Documented by: DARRELL Atorvastatin Calcium (Atorvastatin Calcium 10 Mg Tablet) 10 mg PO DAILY [facility] Last Admin: 12/19/20 09:32 Dose: 10 mg Documented by: DARRELL Dextrose (Dextrose 50 % 25 Gm/50 Ml Vial) 25 gm IVPUSH Q15M PRN; Protocol PRN Reason: per Hypoglycemia Standing Ord. Divalproex Sodium (Divalproex Sodium 500 Mg Tablet.) 500 mg PO BID [facility] Last Admin: 12/19/20 09:35 Dose: Not Given Documented by: DARRELL Non-Admin Reason: Patient Refused Docusate Sodium (Docusate Sodium 100 Mg Capsule) 100 mg PO DAILY PRN PRN Reason: Constipation Enoxaparin Sodium (Enoxaparin Sodium 40 Mg/0.4 Ml Syringe) 40 mg SUBCUT Q24H [facility] Last Admin: 12/18/20 16:28 Dose: 40 mg Documented by: KAYKAY Escitalopram Oxalate (Escitalopram Oxalate 20 Mg Tablet) 20 mg PO DAILY [facility] Last Admin: 12/19/20 09:32 Dose: 20 mg Documented by: DARRELL Famotidine (Famotidine 20 Mg Tablet) 40 mg PO BID [facility] Last Admin: 12/19/20 09:32 Dose: 40 mg Documented by: DARRELL Fluticasone Propionate (Fluticasone Propionate Nasal 16 Gm [place]) 1 spray NOSTRIL-B DAILY [facility] Last Admin: 12/19/20 09:31 Dose: 1 spray Documented by: ADRRELL Glucose (Glucose Gel 15 Gm Gel..Gram.) 15 gm PO Q15M PRN; Protocol PRN Reason: per Hypoglycemia Standing Ord. Guaifenesin/Dextromethorphan (Guaifenesin Dm 200/20/10 Ml 10 Ml Syrup) 10 ml PO Q6H PRN PRN Reason: cough Piperacillin Sod/Tazobactam (Sod 3.375 gm/ Sodium Chloride) 50 mls @ 100 mls/hr IV Q6H [facility] Last Infusion: 12/19/20 10:06 Dose: 0 mls/hr Documented by: DARRELL Insulin Glargine (Insulin Glargine,Hum.Rec.Anlog 100 Unit/Ml 10 Ml Vial) 20 u nit SUBCUT BEDTIME [facility] Last Admin: 12/18/20 20:09 Dose: 20 unit Documented by: SUBHA Insulin Human Lispro (Insulin Lispro 100 Unit/Ml 3 Ml Vial) 0 unit SUBCUT QIDACHS [facility]; Protocol Last Admin: 12/19/20 11:19 Dose: 8 unit Documented by: DARRELL Methylprednisolone Sodium Succinate (Methylprednisolone Sod Succ 125 Mg/2 Ml Vial) 60 mg IVPUSH Q12H [facility] Ondansetron HCl (Ondansetron Hcl 4 Mg/2 Ml Vial) 4 mg IVPUSH Q8H PRN PRN Reason: Nausea and Vomiting Pioglitazone HCl (Pioglitazone Hcl 15 Mg Tablet) 15 mg PO DAILY [facility] Last Admin: 12/19/20 09:32 Dose: 15 mg Documented by: DARRELL Sodium Chloride (0.9 % Sodium Chloride Flush 3 Ml Syringe) 3 ml IVFLUSH QSHIFT [facility] Last Admin: 12/19/20 09:33 Dose: 3 ml Documented by: DARRELL Sodium Chloride (Sodium Chloride 0.65 % Nasal 44 Ml Sprbtl) 1 spray NOSTRIL-B Q1H PRN PRN Reason: Congestion Last Admin: 12/19/20 09:31 Dose: 1 spray Documented by: DARRELL Vitamin D (Cholecalciferol (Vitamin D3) 25 Mcg Tablet) 50 mcg PO DAILY [facility] Last Admin: 12/19/20 09:32 Dose: 50 mcg Documented by: DARRELL Zinc Sulfate (Zinc Sulfate 220 Mg Capsule) 220 mg PO DAILY [facility] Last Admin: 12/19/20 09:32 Dose: 220 mg Documented by: DARRELL Labs CBC & Chem 7: 12/18/20 08:36 12/15/20 05:53 Labs: Laboratory Results - last 24 hr 12/18/20 12/18/20 12/18/20 08:36 16:09 19:59 POC Glucose 306 H 228 H Vitamin B12 544 Folate 10.0 12/19/20 12/19/20 07:04 11:04 POC Glucose 137 H 256 H Vitamin B12 Folate Assessment and Plan (1) Cavitary lesion of lung: Status: Acute Assessment and Plan: 50-year-old female unvaccinated presents to the hospital with complaints of shortness of breath found to have COVID-19 pneumonia with viral sepsis 1.Acute hypoxic respiratory failure d/t covid 19, slow to wean still hypoxicsimilar as yesterday CTA neg for pulm embolism , but has significant pulmonary disease question related to COVID Ferritin is better than before, CRP is in 5 range which is increased from before, IG G pending as well as COVID antibody also pending completed? DExa and completed Remdesevir contineu pepcid 40 bid, vitc, Zinc,Prednisone for few more day, continue albuterol, prednisone ? pneumonia /post covid changes -switched to received 4 days zosyn and switched to po augmentin 1/4 days and? iv steriods tapered to 60 mg [id number], taper to po steriods in am. ?Would benefit from an oximizer pendednt oxygen demand slowing going down to 8 liter now 2. Hypertension-fluctating continue atenolol ?? losartan? held on admission due to PEREZ 3.PEREZ--now resolved was likely pre renal , avoid nephrotoxins 4. hyperkalemia? potassium elevated intermittently, likely due to hyperglycemia, improved ? Kayexalate, continue to hold losartan 5.Diabetes--fs in 190-220's range elevated blood sugars due to steroid, continue Lantus and sliding scale,continue Actos, ,at home takes metformin and Actos 6. Anxiety and depression continue estalopram. 7. Hyperlipidemia: continue lipitor 8. Anemia normochromic: she says she had anemia in the past. Denies any melena or ana rosa GI bleeding or any abdominal pain. H&H stable around 11.4 Iron panel and B12, folate ordered Monitor CBC. DVT prophylaxis lovenox subQ Quality Stroke Does the patient have a stroke diagnosis?: No VTE Prior VTE?: No VTE Risk Level:: Medical - moderate - high VTE Device Contraindication: Treatment Not Indicated VTE Drug Contraindication: N/A - Med Ordered
[2020-12-19 15:59] LABS: Glucose, Whole Blood 271 mg/dL (60-115)
[2020-12-19] MEDS: Amoxicillin/Potassium Clav 875 MG TABLET PO (16:25)
[2020-12-19] MEDS: Enoxaparin Sodium 40 MG/0.4 ML SYRINGE SUBCUT (16:30)
[2020-12-19 19:54] LABS: Glucose, Whole Blood 303 mg/dL (60-115)
[2020-12-19] MEDS: Insulin Glargine,Hum.rec.anlog 100 UNIT/ML 10 ML VIAL 20 UNIT SUBCUT (20:03)
[2020-12-20] VITALS (11 sets, daily range): BP systolic 137–153; BP diastolic 81–96; PULSE 62–87; RESP 20; TEMP 36.2–36.7; O2SAT 72–95
[2020-12-20] MEDS: methylPREDNISolone Sod Succ 125 MG/2 ML VIAL 60 MG IVPUSH ×2 (02:33→15:30)
[2020-12-20] MEDS: Amoxicillin/Potassium Clav 875 MG TABLET PO ×2 (02:34→15:30)
[2020-12-20 06:32] LABS: Hematocrit 35.1 % (37-47); Hemoglobin 11.3 g/dl (12.0-16.0); Mean Corpuscular HGB Conc 32.2 g/dl (31.0-35.0); Mean Corpuscular Hemoglobin 26.8 pg (27.0-33.0); Mean Corpuscular Volume 83.2 fL (80-98); Mean Platelet Volume 10.7 fL (9.4-12.3); Platelet Count 188 X10*3/uL (160-400); Red Blood Count 4.22 X10*6/uL (4.20-5.50); Red Cell Distribution Width 15.8 % (11.0-16.0); White Blood Count 7.8 X10*3/uL (4.8-10.8)
[2020-12-20 06:52] LABS: Anion Gap 12 (12-20); Blood Urea Nitrogen 34 mg/dL (9-16); Calcium 8.5 mg/dL (8.4-10.2); Carbon Dioxide 31 mmol/L (22-29); Chloride 100 mmol/L (96-108); Estimated Glomerular Filt Rate 55; Glucose Random 196 mg/dL (60-115); Potassium 4.8 mmol/L (3.3-5.1); Sodium 138 mmol/L (135-145)
[2020-12-20] MEDS: Famotidine 20 MG TABLET 40 MG PO ×2 (08:38→20:13)
[2020-12-20] MEDS: Zinc Sulfate 220 MG CAPSULE PO (08:38)
[2020-12-20] MEDS: Escitalopram Oxalate 20 MG TABLET PO (08:38)
[2020-12-20] MEDS: Cholecalciferol (Vitamin D3) 25 MCG TABLET 50 MCG PO (08:38)
[2020-12-20] MEDS: atenoloL 50 MG TABLET PO (08:38)
[2020-12-20] MEDS: Fluticasone Propionate Nasal 16 GM SPRAY 1 SPRAY NOSTRIL-B (08:39)
[2020-12-20] MEDS: 0.9 % Sodium Chloride Flush 3 ML SYRINGE IVFLUSH ×3 (08:39→20:13)
[2020-12-20] MEDS: Ascorbic Acid 500 MG TABLET PO (08:39)
[2020-12-20] MEDS: Atorvastatin Calcium 10 MG TABLET PO (08:39)
[2020-12-20 08:42] LABS: Glucose, Whole Blood 170 mg/dL (60-115)
[2020-12-20] MEDS: Insulin Lispro 100 UNIT/ML 3 ML VIAL SUBCUT ×4 (08:42→20:13)
[2020-12-20 11:45] LABS: Glucose, Whole Blood 203 mg/dL (60-115)
--- NOTE | 2020-12-20 11:52 | MHC.CM.PN ---
CM spoke with Patient regarding dc planning. Patient adamantly refuses to consider SNF/STR; she explained that the goal has been ongoing to wean the O2 and for her to go home. CM spoke with RT/Eugene and MD and informed them of Patient's continued goal to return home. CM will follow.
--- NOTE | 2020-12-20 13:36 | HO.PM.IMPN ---
Subjective Subjective Date of Service: 12/21/20 Interval History: F/u hypoxic resp failur due covid with prolonged recovery, persitent hypoxia, albeit better. Now on 6 liters by NC and desat with acticity Review of Systems no sob no fever Physical Exam Vital Signs: Vital Signs: Last Vital Signs Temp 98.1 F 12/20/20 11:06 Pulse 67 12/20/20 11:06 Resp 20 12/20/20 11:06 BP 141/89 H 12/20/20 11:06 Pulse Ox 90 L 12/20/20 11:06 Body Mass Index 26.0 General: AO X 3, no acute distress Resp: CTA bilateral CVS: S1,S2,RRR GI: +BS, NT, no distention Skin: No rash Neuro: motor grossly intact Psych: appropriate affect Objective Data Active Medications Acetaminophen (Acetaminophen 325 Mg Tablet) 650 mg PO Q6H PRN PRN Reason: Pain, Mild (Pain Scale 1-3) Albuterol Sulfate (Albuterol Sulfate 90 Mcg 8 Gm Inhaler) 4 puff INHALE Q3H PRN PRN Reason: Shortness of Breath/Wheezing Amoxicillin/Clavulanate Potassium (Amoxicillin/Potassium Clav 875 Mg Tablet) 875 mg PO Q12H [facility] Last Admin: 12/20/20 02:34 Dose: 875 mg Documented by: IRENA Ascorbic Acid (Ascorbic Acid 500 Mg Tablet) 500 mg PO DAILY [facility] Last Admin: 12/20/20 08:39 Dose: 500 mg Documented by: DARRELL Aspirin (Aspirin Enteric Coated 81 Mg Tablet.) 81 mg PO DAILY [facility] Last Admin: 12/19/20 09:32 Dose: 81 mg Documented by: DARRELL Atenolol (Atenolol 50 Mg Tablet) 50 mg PO DAILY [facility]; Protocol Last Admin: 12/20/20 08:38 Dose: 50 mg Documented by: DARRELL Atorvastatin Calcium (Atorvastatin Calcium 10 Mg Tablet) 10 mg PO DAILY [facility] Last Admin: 12/20/20 08:39 Dose: 10 mg Documented by: DARRELL Dextrose (Dextrose 50 % 25 Gm/50 Ml Vial) 25 gm IVPUSH Q15M PRN; Protocol PRN Reason: per Hypoglycemia Standing Ord. Divalproex Sodium (Divalproex Sodium 500 Mg Tablet.) 500 mg PO BID [facility] Last Admin: 12/20/20 08:39 Dose: Not Given Documented by: DARRELL Non-Admin Reason: Patient Refused Docusate Sodium (Docusate Sodium 100 Mg Capsule) 100 mg PO DAILY PRN PRN Reason: Constipation Enoxaparin Sodium (Enoxaparin Sodium 40 Mg/0.4 Ml Syringe) 40 mg SUBCUT Q24H [facility] Last Admin: 12/19/20 16:30 Dose: 40 mg Documented by: DARRELL Escitalopram Oxalate (Escitalopram Oxalate 20 Mg Tablet) 20 mg PO DAILY [facility] Last Admin: 12/20/20 08:38 Dose: 20 mg Documented by: DARRELL Famotidine (Famotidine 20 Mg Tablet) 40 mg PO BID [facility] Last Admin: 12/20/20 08:38 Dose: 40 mg Documented by: DARRELL Fluticasone Propionate (Fluticasone Propionate Nasal 16 Gm [place]) 1 spray NOSTRIL-B DAILY [facility] Last Admin: 12/20/20 08:39 Dose: 1 spray Documented by: DARRELL Glucose (Glucose Gel 15 Gm Gel..Gram.) 15 gm PO Q15M PRN; Protocol PRN Reason: per Hypoglycemia Standing Ord. Guaifenesin/Dextromethorphan (Guaifenesin Dm 200/20/10 Ml 10 Ml Syrup) 10 ml PO Q6H PRN PRN Reason: cough Insulin Glargine (Insulin Glargine,Hum.Rec.Anlog 100 Unit/Ml 10 Ml Vial) 20 unit SUBCUT BEDTIME [facility] Last Admin: 12/19/20 20:03 Dose: 20 unit Documented by: IRENA Insulin Human Lispro (Insulin Lispro 100 Unit/Ml 3 Ml Vial) 0 unit SUBCUT QIDACHS [facility]; Protocol Last Admin: 12/20/20 12:06 Dose: 8 unit Documented by: DARRELL Methylprednisolone Sodium Succinate (Methylprednisolone Sod Succ 125 Mg/2 Ml Vial) 60 mg IVPUSH Q12H [facility] Last Admin: 12/20/20 02:33 Dose: 60 mg Documented by: IRENA Ondansetron HCl (Ondansetron Hcl 4 Mg/2 Ml Vial) 4 mg IVPUSH Q8H PRN PRN Reason: Nausea and Vomiting Pioglitazone HCl (Pioglitazone Hcl 15 Mg Tablet) 15 mg PO DAILY [facility] Last Admin: 12/20/20 08:38 Dose: 15 mg Documented by: DARRELL Sodium Chloride (0.9 % Sodium Chloride Flush 3 Ml Syringe) 3 ml IVFLUSH QSHIFT [facility] Last Admin: 12/20/20 08:39 Dose: 3 ml Documented by: DARRELL Sodium Chloride (Sodium Chloride 0.65 % Nasal 44 Ml Sprbtl) 1 spray NOSTRIL-B Q1H PRN PRN Reason: Congestion Last Admin: 12/19/20 09:31 Dose: 1 spray Documented by: DARRELL Vitamin D (Cholecalciferol (Vitamin D3) 25 Mcg Tablet) 50 mcg PO DAILY [facility] Last Admin: 12/20/20 08:38 Dose: 50 mcg Documented by: DARRELL Zinc Sulfate (Zinc Sulfate 220 Mg Capsule) 220 mg PO DAILY [facility] Last Admin: 12/20/20 08:38 Dose: 220 mg Documented by: DARRELL Labs CBC & Chem 7: 12/20/20 05:58 12/20/20 05:58 Labs: Laboratory Results - last 24 hr 12/19/20 12/19/20 12/20/20 15:55 19:51 05:58 MCV 83.2 MCH 26.8 L MCHC 32.2 RDW 15.8 Plt Count 188 MPV 10.7 Absolute Nucleated RBC 0.000 Nucleated RBC % (auto) 0.0 Anion Gap Estim Creat Clear Calc Estimated GFR POC Glucose 271 H 303 H Random Glucose Calcium 12/20/20 12/20/20 12/20/20 05:58 07:22 11:38 MCV MCH MCHC RDW Plt Count MPV Absolute Nucleated RBC Nucleated RBC % (auto) Anion Gap 12 Estim Creat Clear Calc 70.0 Estimated GFR 55 POC Glucose 170 H 203 H Random Glucose 196 H Calcium 8.5 Assessment and Plan (1) Cavitary lesion of lung: Status: Acute Assessment and Plan: 50-year-old female unvaccinated presents to the hospital with complaints of shortness of breath found to have COVID-19 pneumonia with viral sepsis 1.Acute hypoxic respiratory failure d/t covid 19 with prolonged recover d/t peristent hypoxica, no PE by CTA -sp remdesevir -s/p IV Abx with Zosyn, no Augmentin -Change solumedrol to Prednisone,and wean as alesia, continu high dose pepcid, Zinci, Vit C (less well validated Tx options) 2. Hypertension-BP a bit high, continue Atenolol, restart Losartan at lower 3.PEREZ--now resolved was likely pre renal , avoid nephrotoxins 4. hyperkalemia--resolved with 5.Diabetes--fs in 190-220's range elevated blood sugars due to steroid, continue Lantus and sliding scale,continue Actos, ,at home takes metformin and Actos 6. Anxiety and depression continue estalopram. 7. Hyperlipidemia: continue lipitor 8. Anemia normochromic: she says she had anemia in the past. Denies any melena or ana rosa GI bleeding or any abdominal pain. H&H stable around 11.4 Iron panel and B12, folate ordered Monitor CBC. DVT prophylaxis lovenox subQ Quality Stroke Does the patient have a stroke diagnosis?: No VTE Prior VTE?: No VTE Risk Level:: Medical - moderate - high VTE Device Contraindication: Treatment Not Indicated VTE Drug Contraindication: N/A - Med Ordered
[2020-12-20] MEDS: Losartan Potassium 25 MG TABLET PO (15:29)
[2020-12-20 16:06] LABS: Glucose, Whole Blood 175 mg/dL (60-115)
[2020-12-20] MEDS: Enoxaparin Sodium 40 MG/0.4 ML SYRINGE SUBCUT (16:49)
[2020-12-20 19:56] LABS: Glucose, Whole Blood 230 mg/dL (60-115)
[2020-12-20] MEDS: Insulin Glargine,Hum.rec.anlog 100 UNIT/ML 10 ML VIAL 20 UNIT SUBCUT (20:13)
[2020-12-21] VITALS (9 sets, daily range): BP systolic 118–151; BP diastolic 77–96; PULSE 62–80; RESP 18–20; TEMP 36.3–36.8; O2SAT 93–100
[2020-12-21] MEDS: methylPREDNISolone Sod Succ 125 MG/2 ML VIAL 60 MG IVPUSH ×2 (04:00→14:29)
[2020-12-21] MEDS: Amoxicillin/Potassium Clav 875 MG TABLET PO ×2 (04:01→14:29)
[2020-12-21 07:28] LABS: Glucose, Whole Blood 156 mg/dL (60-115)
[2020-12-21] MEDS: Ascorbic Acid 500 MG TABLET PO (08:07)
[2020-12-21] MEDS: Losartan Potassium 25 MG TABLET PO (08:07)
[2020-12-21] MEDS: Cholecalciferol (Vitamin D3) 25 MCG TABLET 50 MCG PO (08:07)
[2020-12-21] MEDS: 0.9 % Sodium Chloride Flush 3 ML SYRINGE IVFLUSH ×3 (08:07→20:41)
[2020-12-21] MEDS: Insulin Lispro 100 UNIT/ML 3 ML VIAL SUBCUT ×4 (08:07→20:40)
[2020-12-21] MEDS: Zinc Sulfate 220 MG CAPSULE PO (08:07)
[2020-12-21] MEDS: Famotidine 20 MG TABLET 40 MG PO ×2 (08:07→20:41)
[2020-12-21] MEDS: Atorvastatin Calcium 10 MG TABLET PO (08:08)
[2020-12-21] MEDS: atenoloL 50 MG TABLET PO (08:08)
[2020-12-21] MEDS: Escitalopram Oxalate 20 MG TABLET PO (08:08)
[2020-12-21] MEDS: Fluticasone Propionate Nasal 16 GM SPRAY 1 SPRAY NOSTRIL-B (08:09)
[2020-12-21 11:15] LABS: Glucose, Whole Blood 267 mg/dL (60-115)
[2020-12-21 15:50] LABS: COVID-19 Test Negative (Negative); IDNOW Serial# 9DD0AD1C
[2020-12-21 16:08] LABS: Glucose, Whole Blood 190 mg/dL (60-115)
--- NOTE | 2020-12-21 16:18 | P.PNIM_ITS ---
Subjective Subjective Date of Service: 12/21/20 Interval History: ?F/u hypoxic resp failur due covid with prolonged recovery, persitent hypoxia, albeit better. Remains on O2, no distress Review of Systems no sob no cp Physical Exam Vital Signs: Vital Signs: Last Vital Signs Temp 98.1 F 12/21/20 15:21 Pulse 66 12/21/20 15:21 Resp 20 12/21/20 15:21 BP 139/92 H 12/21/20 15:21 Pulse Ox 93 12/21/20 15:21 Body Mass Index 26.0 General: AO X 3, no acute distress Resp: CTA bilateral CVS: S1,S2,RRR GI: +BS, NT, no distention Skin: No rash Neuro: motor grossly intact Psych: appropriate affect Objective Data Active Medications Acetaminophen (Acetaminophen 325 Mg Tablet) 650 mg PO Q6H PRN PRN Reason: Pain, Mild (Pain Scale 1-3) Albuterol Sulfate (Albuterol Sulfate 90 Mcg 8 Gm Inhaler) 4 puff INHALE Q3H PRN PRN Reason: Shortness of Breath/Wheezing Amoxicillin/Clavulanate Potassium (Amoxicillin/Potassium Clav 875 Mg Tablet) 875 mg PO Q12H [facility] Last Admin: 12/21/20 14:29 Dose: 875 mg Documented by: ACOSTA Ascorbic Acid (Ascorbic Acid 500 Mg Tablet) 500 mg PO DAILY [facility] Last Admin: 12/21/20 08:07 Dose: 500 mg Documented by: ACOSTA Aspirin (Aspirin Enteric Coated 81 Mg Tablet.) 81 mg PO DAILY [facility] Last Admin: 12/19/20 09:32 Dose: 81 mg Documented by: DARRELL Atenolol (Atenolol 50 Mg Tablet) 50 mg PO DAILY [facility]; Protocol Last Admin: 12/21/20 08:08 Dose: 50 mg Documented by: ACOSTA Atorvastatin Calcium (Atorvastatin Calcium 10 Mg Tablet) 10 mg PO DAILY [facility] Last Admin: 12/21/20 08:08 Dose: 10 mg Documented by: ACOSTA Dextrose (Dextrose 50 % 25 Gm/50 Ml Vial) 25 gm IVPUSH Q15M PRN; Protocol PRN Reason: per Hypoglycemia Standing Ord. Divalproex Sodium (Divalproex Sodium 500 Mg Tablet.) 500 mg PO BID [facility] Last Admin: 12/21/20 07:32 Dose: Not Given Documented by: ACOSTA Non-Admin Reason: Patient Refused Docusate Sodium (Docusate Sodium 100 Mg Capsule) 100 mg PO DAILY PRN PRN Reason: Constipation Enoxaparin Sodium (Enoxaparin Sodium 40 Mg/0.4 Ml Syringe) 40 mg SUBCUT Q24H [facility] Last Admin: 12/20/20 16:49 Dose: 40 mg Documented by: DARRELL Escitalopram Oxalate (Escitalopram Oxalate 20 Mg Tablet) 20 mg PO DAILY [facility] Last Admin: 12/21/20 08:08 Dose: 20 mg Documented by: ACOSTA Famotidine (Famotidine 20 Mg Tablet) 40 mg PO BID [facility] Last Admin: 12/21/20 08:07 Dose: 40 mg Documented by: ACOSTA Fluticasone Propionate (Fluticasone Propionate Nasal 16 Gm [place]) 1 spray NOSTRIL-B DAILY [facility] Last Admin: 12/21/20 08:09 Dose: 1 spray Documented by: ACOSTA Glucose (Glucose Gel 15 Gm Gel..Gram.) 15 gm PO Q15M PRN; Protocol PRN Reason: per Hypoglycemia Standing Ord. Guaifenesin/Dextromethorphan (Guaifenesin Dm 200/20/10 Ml 10 Ml Syrup) 10 ml PO Q6H PRN PRN Reason: cough Insulin Glargine (Insulin Glargine,Hum.Rec.Anlog 100 Unit/Ml 10 Ml Vial) 20 unit SUBCUT BEDTIME [facility] Last Admin: 12/20/20 20:13 Dose: 20 unit Documented by: IRENA Insulin Human Lispro (Insulin Lispro 100 Unit/Ml 3 Ml Vial) 0 unit SUBCUT QIDACHS [facility]; Protocol Last Admin: 12/21/20 11:47 Dose: 8 unit Documented by: ACOSTA Losartan Potassium (Losartan Potassium 25 Mg Tablet) 25 mg PO DAILY [facility]; Protocol Last Admin: 12/21/20 08:07 Dose: 25 mg Documented by: ACOSTA Methylprednisolone Sodium Succinate (Methylprednisolone Sod Succ 125 Mg/2 Ml Vial) 60 mg IVPUSH Q12H [facility] Last Admin: 12/21/20 14:29 Dose: 60 mg Documented by: ACOSTA Ondansetron HCl (Ondansetron Hcl 4 Mg/2 Ml Vial) 4 mg IVPUSH Q8H PRN PRN Reason: Nausea and Vomiting Pioglitazone HCl (Pioglitazone Hcl 15 Mg Tablet) 15 mg PO DAILY [facility] Last Admin: 12/21/20 08:08 Dose: 15 mg Documented by: ACOSTA Sodium Chloride (0.9 % Sodium Chloride Flush 3 Ml Syringe) 3 ml IVFLUSH QSHIFT [facility] Last Admin: 12/21/20 14:29 Dose: 3 ml Documented by: ACOSTA Sodium Chloride (Sodium Chloride 0.65 % Nasal 44 Ml Sprbtl) 1 spray NOSTRIL-B Q1H PRN PRN Reason: Congestion Last Admin: 12/19/20 09:31 Dose: 1 spray Documented by: DARRELL Vitamin D (Cholecalciferol (Vitamin D3) 25 Mcg Tablet) 50 mcg PO DAILY [facility] Last Admin: 12/21/20 08:07 Dose: 50 mcg Documented by: ACOSTA Zinc Sulfate (Zinc Sulfate 220 Mg Capsule) 220 mg PO DAILY [facility] Last Admin: 12/21/20 08:07 Dose: 220 mg Documented by: ACOSTA Labs CBC & Chem 7: 12/20/20 05:58 12/20/20 05:58 Labs: Laboratory Results - last 24 hr 12/20/20 12/21/20 12/21/20 19:53 07:08 11:10 POC Glucose 230 H 156 H 267 H COVID-19 ([facility]) COVID-19 Clin Com 12/21/20 12/21/20 15:25 16:04 POC Glucose 190 H COVID-19 ([facility]) Negative COVID-19 Clin Com See Note Assessment and Plan (1) Cavitary lesion of lung: Status: Acute Assessment and Plan: 50-year-old female unvaccinated presents to the hospital with complaints of shortness of breath found to have COVID-19 pneumonia with viral sepsis 1.Acute hypoxic respiratory failure d/t covid 19 with prolonged recovery with post covid syndrome with peristent hypoxica, no PE by CTA -sp remdesevir -s/p IV Abx with Zosyn, now Augmentin for 5 days -Change solumedrol to Prednisone,and wean as alesia, continu high dose pepcid, Zinci, Vit C (less well validated Tx options) *covid test is negative, 2. Hypertension-BP a bit high, continue Atenolol, restart Losartan at lower 3.PEREZ--now resolved was likely pre renal , avoid nephrotoxins 4. hyperkalemia--resolved with 5.Diabetes--fs in 190-220's range elevated blood sugars due to steroid, continue Lantus and sliding scale,continue Actos, ,at home takes metformin and Actos 6. Anxiety and depression continue estalopram. 7. Hyperlipidemia: continue lipitor 8. Anemia normochromic: she says she had anemia in the past. Denies any melena or ana rosa GI bleeding or any abdominal pain. H&H stable around 11.4 Iron panel and B12, folate ordered Monitor CBC. DVT prophylaxis lovenox subQ to rehab tomorrow Quality Stroke Does the patient have a stroke diagnosis?: No VTE Prior VTE?: No VTE Risk Level:: Medical - moderate - high VTE Device Contraindication: Treatment Not Indicated VTE Drug Contraindication: N/A - Med Ordered
[2020-12-21] MEDS: Enoxaparin Sodium 40 MG/0.4 ML SYRINGE SUBCUT (16:49)
[2020-12-21 20:02] LABS: Glucose, Whole Blood 240 mg/dL (60-115)
[2020-12-21] MEDS: Insulin Glargine,Hum.rec.anlog 100 UNIT/ML 10 ML VIAL 20 UNIT SUBCUT (20:40)
[2020-12-22 02:55] VITALS: BP 164/97; PULSE 62; RESP 18; TEMP 36.8; O2SAT 94
[2020-12-22] MEDS: methylPREDNISolone Sod Succ 125 MG/2 ML VIAL 60 MG IVPUSH (03:51)
[2020-12-22] MEDS: Amoxicillin/Potassium Clav 875 MG TABLET PO (03:52)
[2020-12-22 07:07] VITALS: BP 170/90; PULSE 70; RESP 18; TEMP 36; O2SAT 92
[2020-12-22] MEDS: Insulin Lispro 100 UNIT/ML 3 ML VIAL SUBCUT ×2 (07:16→11:47)
[2020-12-22 07:20] LABS: Glucose, Whole Blood 173 mg/dL (60-115)
[2020-12-22] MEDS: 0.9 % Sodium Chloride Flush 3 ML SYRINGE IVFLUSH (08:16)
[2020-12-22] MEDS: Famotidine 20 MG TABLET 40 MG PO (08:17)
[2020-12-22] MEDS: Escitalopram Oxalate 20 MG TABLET PO (08:17)
[2020-12-22] MEDS: Cholecalciferol (Vitamin D3) 25 MCG TABLET 50 MCG PO (08:17)
[2020-12-22] MEDS: Ascorbic Acid 500 MG TABLET PO (08:17)
[2020-12-22 08:18] VITALS: BP 170/90; PULSE 70
[2020-12-22] MEDS: Zinc Sulfate 220 MG CAPSULE PO (08:18)
[2020-12-22] MEDS: Losartan Potassium 25 MG TABLET PO (08:18)
[2020-12-22] MEDS: atenoloL 50 MG TABLET PO (08:18)
[2020-12-22] MEDS: Atorvastatin Calcium 10 MG TABLET PO (08:19)
[2020-12-22] MEDS: Fluticasone Propionate Nasal 16 GM SPRAY 1 SPRAY NOSTRIL-B (08:24)
--- NOTE | 2020-12-22 09:08 | PM.DS ---
DS: Providers Provider Date of Service: 12/22/20 Date of admission: 11/18/20 20:50 Primary care physician: Cally Rizvi MD Consults: 11/19/20 07:38 Consult to Infectious Diseases Routine Consulting Provider: Meenu Herrera Reason for consultation: Covid19 infx for your kind evbud. 12/05/20 10:57 Consult to Pulmonology Routine Consulting Provider: Jason Manzo Reason for consultation: covid persistent hypoxia Has provider been notified: No 12/14/20 08:01 Consult to Pulmonology Routine Consulting Provider: Jacob Gibbons Reason for consultation: As acute hypoxemic respiratory failure secondary to COVID Has provider been notified: No DS: Diagnosis Discharge Diagnosis (1) Cavitary lesion of lung: Status: Acute DS: Summary Hospital Course Hospital Course: Chief Complaint: SOB [place]auan-speaking only 50-year-old female with past medical history of diabetes, hypertension, hyperlipidemia, obesity, psoriasis among others presents to the hospital with complaints of shortness of breath, and worsening cough.? Patient reports that she was diagnosed with COVID-19 on the 4th after having symptoms for few days prior to bed, she was isolating at home but her symptoms worsened and has developed severe cough as well as shortness of breath with very minimal activity.? Patient otherwise denies any headache, no change in vision, no chest pain, no palpitations, no abdominal pain nausea or vomiting, no diarrhea or constipation, no urinary symptoms and no lower extremity edema.? No numbness tingling.? All other review of system negative ?On arrival to the ED patient's vitals were significant for temperature of 102.2?, heart rate of 90, respiratory rate of 16, blood pressure 128/82, satting 85% on room air Patient placed on O2 improving to the mid 90s ?on arrival remarkable for WBC count 6.6, lactic acid of 2.6, ferritin of 1147, LDH of 622, CRP of 13, UA negative, COVID-19 positive. Patchy bilateral airspace opacities concerning for multifocal pneumonia. hospital course:Patient was admitted to hospital because of the COVID-19 associated acute hypoxic respiratory failure and has had a prolonged hospitalization because of persistent hypoxia. Her treatment has consisted of oxygen, IV corticosteroid, remdesivir for 5 days. She has also been treated with antibiotics for presumed pneumonia and to continue 3 more days of Augmentin. Her hospital course has been protracted and long because of persistent hypoxia, she was on high-flow oxygen for a prolonged period of time and ultimately were able to wean her from that to a nasal cannula and gradually has done well from 15 liters to presently about 6 L by nasal cannula. Ffurther workup included a CT of the chest which excluded a pulmonary embolism. Clinically the patient is doing very well she is asymptomatic, lungs are clear. Her repeat COVID as of December 21 is negative. At this point will wean off steroid with prednisone 10 mg for next 3 days, has been on IV solumedrol, and to continue weaning her off oxgyen. 2. Hypertension-BP has been mostly low in the hospital but has been trending up. Will continue home dose of Losartant, Ateneolol and Norvasc 3.PEREZ--when she first presented likely due to pre renal and has resolved. 4. hyperkalemia--resolved with 5.Diabetes--To continue Actos 15 home med, Xynjardin not on formulary so has been on Lantus and SSI 6. Anxiety and depression continue estalopram. 7. Hyperlipidemia: continue lipitor 8. Anemia normochromic: H/H has been stable, 9. No signs of heart failure from imobilization and fluid from meds, lungs clear, no JVD--Lasix which will also help BP. She is agreable to going to short term rehab before ultimately going home. Time Spent with Patient Time attestation: Total time spent providing and/or coordinating discharge services: Discharge coordination time: Greater than 30 minutes Quality: Stroke Does the patient have a stroke diagnosis?: No Physical Exam Vital Signs: Vital Signs: Last Vital Signs Temp 96.8 F 12/22/20 07:07 Pulse 70 12/22/20 08:18 Resp 18 12/22/20 07:07 BP 170/90 H 12/22/20 08:18 Pulse Ox 92 12/22/20 07:07 Body Mass Index 26.0 General: AO X 3, no acute distress Resp: CTA bilateral CVS: S1,S2,RRR GI: +BS, NT, no distention Skin: No rash Neuro: motor grossly intact Psych: appropriate affect DS: Data Data Completed and Pending Labs on day of discharge: Laboratory Results - last 24 hr 12/21/20 12/21/20 12/21/20 11:10 15:25 16:04 POC Glucose 267 H 190 H COVID-19 ([facility]) Negative COVID-19 Clin Com See Note 12/21/20 12/22/20 19:58 07:09 POC Glucose 240 H 173 H COVID-19 ([facility]) COVID-19 Clin Com Discharge Plan Discharge Anticipated Discharge Date/Time: 12/21/20 14:36 Patient Disposition: Xfer SNF Discharge Diagnosis: Covid pneumonia Referrals: Po,Cally Silveira MD [Primary Care Provider] - 1 Week Discharge Medications: New albuterol sulfate [Ventolin HFA] 90 mcg/actuation Hfa Aerosol Inhaler 4 puff inhalation Q3H PRN (Reason: Shortness Of Breath/Wheezing) Qty: 8.5 RF: 0 insulin lispro [Humalog U-100 Insulin] 100 unit/mL Solution See Protocol unit subcut QIDACHS Qty: 10 RF: 0 amoxicillin-pot clavulanate 875-125 mg Tablet 875 mg PO Q12H Qty: 6 RF: 0 losartan 25 mg Tablet 25 mg PO DAILY Qty: 30 RF: 0 furosemide 40 mg Tablet 40 mg PO DAILY Qty: 30 RF: 0 prednisone 10 mg tablet 10 mg PO DAILY Qty: 3 RF: 0 Lantus U-100 Insulin 100 unit/mL Solution 20 unit subcut BEDTIME Qty: 10 RF: 0 Continued cholecalciferol (vitamin D3) [Vitamin D3] 50 mcg (2,000 unit) tablet 50 mcg PO DAILY Qty: 90 RF: 3 atenolol 50 mg tablet 50 mg PO DAILY Qty: 180 RF: 2 aspirin [Adult Aspirin Regimen] 81 mg tablet,delayed release (DR/EC) 81 mg PO DAILY Qty: 90 RF: 3 atorvastatin 10 mg tablet 10 mg PO DAILY RF: 0 losartan 100 mg tablet 100 mg PO DAILY RF: 0 amlodipine 5 mg tablet 5 mg PO DAILY 90 Days Qty: 90 RF: 2 escitalopram oxalate 20 mg tablet 20 mg PO DAILY RF: 0 divalproex 500 mg tablet,delayed release (DR/EC) 500 mg PO BID RF: 0 pioglitazone 15 mg tablet 15 mg PO DAILY 90 Days Qty: 90 RF: 1 clonazepam 1 mg tablet 1 mg PO BID PRN (Reason: Anxiety) Qty: 8 RF: 0 Discontinued Synjardy XR 12.5-1,000 mg tablet, IR - ER, biphasic 24hr 2 tab PO DAILY 30 Days Qty: 60 RF: 6 Discharge Orders: Discharge Order (Routine); Ordered 12/22/20 Ordered By: Mckinley Barksdale Diet: advance to usual diet and diabetic diet Activity on Discharge: As tolerated Stand Alone Forms: Patient Portal Discharge page Care Plan Goals: 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
[2020-12-22] MEDS: Furosemide 40 MG TABLET PO (09:25)
--- NOTE | 2020-12-22 09:50 | MHC.CM.PN ---
Patient has been medically cleared for dc to SNF/STR today. Patient will dc to [facility] today at 12:30 PM, via [facility]. Last IMM addressed on 12/20/20.
[2020-12-22 09:54] VITALS: BP 170/90; PULSE 70
[2020-12-22] MEDS: amLODIPine Besylate 5 MG TABLET PO (09:54)
[2020-12-22] MEDS: Losartan Potassium 50 MG TABLET PO (09:54)
[2020-12-22 11:34] LABS: Glucose, Whole Blood 247 mg/dL (60-115)
== END 2020-12-22 13:04 | disposition skilled nursing facility (03) | DRG 177 ==
LOC: HO.ED 19:42 → HO.EDOVER 21:08 → HO.IMC 11-19 12:22
PROVIDERS: Hospitalist; Internal Medicine; Student in an Organized Health Care Education/Training Program; Admitting Provider Internal Medicine; Emergency Provider Emergency Medicine Emergency Medical Services; PCP Internal Medicine; Visit Provider Internal Medicine
DX: U07.1 COVID-19 (principal); J12.82 Pneumonia due to coronavirus disease 2019; J80 Acute respiratory distress syndrome; E87.2 Acidosis; N17.9 Acute kidney failure, unspecified; E87.5 Hyperkalemia; J98.4 Other disorders of lung; E11.9 Type 2 diabetes mellitus without complications; D64.9 Anemia, unspecified; F41.9 Anxiety disorder, unspecified; F32.A Depression, unspecified; E78.5 Hyperlipidemia, unspecified; Z79.4 Long term (current) use of insulin; Z79.82 Long term (current) use of aspirin; Z79.899 Other long term (current) drug therapy
CPT/HCPCS: 0241U; 36415; 71045; 71275; 80048; 80076; 81001; 82607; 82728; 82746; 82784; 82803; 82947; 83540; 83605; 83615; 83880; 84145; 84484; 85007; 85014; 85018; 85025; 85027; 85049; 85379; 85610; 86140; 86769; 87040; 87635; 93005; 96365; 96367; 96375; 97163; 99285; 99291; J0456; J0696; J1100; J1650; J1940; J2543; J2920; J2930; J3490; Q9967

== ENCOUNTER → 2021-01-05 13:04 | Outpatient (BNVA) | payer OTHER, SELFPAY | PROVIDERS: PCP Internal Medicine; Visit Provider Internal Medicine | DX: U07.1 COVID-19 (principal); J12.82 Pneumonia due to coronavirus disease 2019; J96.91 Respiratory failure, unspecified with hypoxia; Z79.899 Other long term (current) drug therapy | CPT/HCPCS: 99212 ==

== ENCOUNTER 2021-02-08 12:51 | Outpatient (REF) | payer OTHER, SELFPAY ==
--- NOTE | ~2021-02-08 | XR_ITS ---
EXAMINATION: XR CHEST CLINICAL INFORMATION: Covid infection COMPARISON: Previous chest x-ray and chest CT 14 December 2020 TECHNIQUE: 2 views of the chest were obtained. FINDINGS: The cardiac silhouette is slightly enlarged but stable. Hilar and mediastinal contours are unremarkable. The lung volumes are low. There are bilateral infiltrates, left greater than right. This does not appear appreciably changed from 12/14/2020 exams. There is no pleural effusion or pneumothorax. Bony structures are unremarkable. XR/XR chest 2V IMPRESSION: Low lung volumes and bilateral diffuse infiltrates, left greater than right, not appreciably changed from December 2020.
== END 2021-02-08 12:52 | disposition home or self-care (01) ==
LOC: HO.XRAY 12:51
PROVIDERS: PCP Internal Medicine; Visit Provider Internal Medicine
DX: U07.1 COVID-19 (principal); J12.82 Pneumonia due to coronavirus disease 2019; J96.91 Respiratory failure, unspecified with hypoxia
CPT/HCPCS: 71046; 99212

== ENCOUNTER → 2021-03-20 09:26 | Outpatient (BNVA) | payer OTHER, SELFPAY | PROVIDERS: PCP Internal Medicine; Visit Provider Internal Medicine | DX: J96.91 Respiratory failure, unspecified with hypoxia (principal); U07.1 COVID-19; J12.82 Pneumonia due to coronavirus disease 2019; J98.4 Other disorders of lung | CPT/HCPCS: 94010; 99212 ==

== ENCOUNTER 2021-05-25 07:38 | Outpatient (REF) | payer OTHER, SELFPAY ==
--- NOTE | ~2021-05-25 | US_ITS ---
EXAMINATION: US THYROID CLINICAL INFORMATION: Nontoxic multinodular goiter. COMPARISON: Ultrasound soft tissue head/neck thyroid dated 09/21/2020 and 03/29/2020. TECHNIQUE: Linear transducer grayscale and color Doppler examination with attention to the region of the thyroid. FINDINGS: SIZE: Measurements of the thyroid lobes and nodules are given in sagittal, anteroposterior and transverse dimensions respectively. Right Thyroid Lobe: 5.6 x 2.1 x 2.1 cm, volume 13.3 mL. Previously 5.1 x 2.4 x 2.4 cm, volume 15.3 mL. Parenchyma: The gland echotexture is homogeneous. Thyroid vascularity is normal. Left Thyroid Lobe: 4.2 x 1.6 x 1.3 cm, volume 4.7 mL. Previously 3.8 x 1.3 x 1.8 cm, volume 4.7 mL. Parenchyma: The gland echotexture is homogeneous. Thyroid vascularity is normal. Isthmus: 0.5 cm in maximum AP dimension. Previously 0.6 cm. Estimated total number of nodules greater than or equal to 1 cm: 1. Pet Sitting nodules are described as follows: 1. Location: Right mid. Size: 2.1 x 1.6 x 1.6 cm, volume 2.81 mL. Previously: 1.9 x 1.5 x 1.7 cm, volume 2.53 mL. Nodule characteristics: Composition: Mixed cystic and solid (1). Echogenicity: Hypoechoic (2). Shape: Not taller than wide (0). Margins: Smooth (0). Echogenic Foci: None (0). ACR TI-RADS total points: 3 Previous: 3 ACR TI-RADS category: 3 Previous: 3 Significant change in size (>/= 20% in 2 dimensions and minimal increase of 2 mm or 50% or greater increase in volume): None Change in features: None Change in ACR TI-RADS risk category: No change 2. Location: Left superior. Size: 0.5 x 0.4 x 0.3 cm, volume 0.03 mL. Previously: 0.4 x 0.3 x 0.3 cm, volume 0.02 mL. Nodule characteristics: Composition: Solid (2). Echogenicity: Hypoechoic (2). Shape: Not taller than wide (0). Margins: Smooth (0). Echogenic Foci: None (0). ACR TI-RADS total points: 4 Previous: 4 ACR TI-RADS category: 4 Previous: 4 Significant change in size (>/= 20% in 2 dimensions and minimal increase of 2 mm or 50% or greater increase in volume): None Change in features: None Change in ACR TI-RADS risk category: No change 3. Location: Left mid. Size: 0.5 x 0.5 x 0.6 cm, volume 0.078 mL. Previously: 0.5 x 0.3 x 0.4 cm, volume 0.03 mL. Nodule characteristics: Composition: Cystic(0). ACR TI-RADS total points: 0 Previous: 0 ACR TI-RADS category: 1 Previous: 1 Significant change in size (>/= 20% in 2 dimensions and minimal increase of 2 mm or 50% or greater increase in volume): None Change in features: None Change in ACR TI-RADS risk category: No change NODES: No lymphadenopathy is seen in the tissue surrounding the thyroid gland. US/US thyroid IMPRESSION: Slightly enlarged right lobe. The left lobe is normal size. Bilateral thyroid nodules, stable. ACR TI-RADS RECOMMENDATION REFERENCE: Ultrasound-guided fine-needle aspiration, followup ultrasound, no further follow up. * TR1 (0 point) and TR 2 (2 points): No FNA or follow up * TR3 (3 points): FNA if more than or equal to 2.5 cm in maximum dimension, followup ultrasound in 1, 3 and 5 years if 1.5 to 2.4 cm in maximum dimension. * TR4 (4-6 points): FNA if more than or equal to 1.5 cm in maximum dimension, followup ultrasound in 1, 2, 3 and 5 years if 1 to 1.4 cm in maximum dimension. * TR5 (more than or equal to 7 points): FNA if more than or equal to 1 cm in maximum dimension, followup ultrasound every year for 5 years if 0.5 to 0.9 cm in maximum dimension. * TR3, TR4 or TR5 nodules that are below the size threshold for follow up receive no follow up.
== END 2021-05-25 07:39 | disposition home or self-care (01) ==
LOC: HO.US 07:38
PROVIDERS: Visit Provider Internal Medicine Endocrinology, Diabetes & Metabolism
DX: E04.2 Nontoxic multinodular goiter (principal)
CPT/HCPCS: 76536

== ENCOUNTER → 2021-05-31 09:42 | Outpatient (BNVA) | payer OTHER, SELFPAY | PROVIDERS: PCP Internal Medicine; Visit Provider Internal Medicine | DX: U09.9 Post COVID-19 condition, unspecified (principal); J96.91 Respiratory failure, unspecified with hypoxia; Z99.81 Dependence on supplemental oxygen; Z87.09 Personal history of other diseases of the respiratory system | CPT/HCPCS: 99212 ==

== ENCOUNTER → 2021-06-01 08:54 | Outpatient (BNVA) | payer OTHER, SELFPAY | PROVIDERS: PCP Internal Medicine; Visit Provider Internal Medicine Endocrinology, Diabetes & Metabolism | DX: E11.65 Type 2 diabetes mellitus with hyperglycemia (principal); E04.2 Nontoxic multinodular goiter | CPT/HCPCS: 82947; 83036; 99212 ==

== ENCOUNTER 2021-06-22 13:48 | Outpatient (REF) | payer OTHER, SELFPAY ==
--- NOTE | ~2021-06-22 | CT_ITS ---
EXAMINATION: CT CHEST WITHOUT CONTRAST CLINICAL INFORMATION: Short of breath. Follow up to last CT chest exam. COMPARISON: CT chest 12/14/2020. TECHNIQUE: Multidetector volumetric CT imaging of the chest was done. Axial MIP volume rendering provided. Sagittal and coronal reformatted images were obtained. This CT examination was performed using dose optimization techniques as appropriate, variously including the following: *Automated exposure control *Adjustment of mA and/or kV according to patient size (this includes techniques or standardized protocols for targeted exams where dose is matched to indication/reason for exam; i.e. 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 LUNGS: Again visualized, is diffuse groundglass attenuation seen throughout both lungs. There is patchy consolidative pattern in the left upper lobe with new cavitary appearing lesions since the previous study. The consolidation is also more prominent than the previous study. Patchy atelectasis is seen in the left lung base. No pulmonary nodule or mass. MEDIASTINUM: The right lobe is asymmetrically enlarged with a small hypodense lesion. Central trachea and the bronchi are widely patent. There are reactive lymph nodes in the para-aortic space with the largest lymph nodes measuring 1.8 x 0.8 cm axial image 16/3. There is no pericardial effusion. Heart size and the great vessels are normal caliber. PLEURA: There is no pleural effusion. No pleural mass or thickening. AXILLA: No lymphadenopathy. UPPER ABDOMEN: Visualized liver, spleen, pancreas and bilateral adrenal glands unremarkable. Gallbladder has been surgically removed. OSSEOUS STRUCTURES: No lytic or sclerotic process seen. CT/CT chest wo con IMPRESSION: Diffuse ground glass attenuation seen throughout both lungs with left upper lobe consolidative pattern and new cavitary appearing lesions since the previous study. There is atelectasis at left lung base. Findings suspicious for progressive inflammatory process. There are reactive lymph nodes in the left para-aortic space. Fleischner guidelines were followed.
== END 2021-06-22 13:49 | disposition home or self-care (01) ==
LOC: HO.CT 13:48
PROVIDERS: Visit Provider Internal Medicine
DX: J98.4 Other disorders of lung (principal); U09.9 Post COVID-19 condition, unspecified; Z87.09 Personal history of other diseases of the respiratory system
CPT/HCPCS: 71250

== ENCOUNTER 2021-06-29 08:42 | Outpatient (REF) | payer OTHER, SELFPAY ==
--- NOTE | 2021-06-29 13:43 | PFT_ITS ---
Forced vital capacity 37%, FEV1 43%, FE25-75 81% and MVV 54%. Post bronchodilator therapy, there is no change. Total lung capacity 40%, residual volume 36%, and diffusion capacity 46%. CONCLUSION: Very severe restrictive pulmonary disorder. No obstructive airway disorder. No response to bronchodilator therapy. Clinical correlation recommended. MD MALACHI Ang/NICOLEL / [phone]
== END 2021-06-29 08:43 | disposition home or self-care (01) ==
LOC: HO.RESP 08:42
PROVIDERS: PCP Internal Medicine; Visit Provider Internal Medicine
DX: U09.9 Post COVID-19 condition, unspecified (principal); J98.4 Other disorders of lung; Z87.09 Personal history of other diseases of the respiratory system
CPT/HCPCS: 94060; 94727; 94729; 99212

== ENCOUNTER → 2021-07-11 08:50 | Outpatient (BNVA) | payer OTHER, SELFPAY | PROVIDERS: PCP Internal Medicine; Visit Provider Registered Nurse Diabetes Educator | DX: E11.21 Type 2 diabetes mellitus with diabetic nephropathy (principal) | CPT/HCPCS: 99211 ==

== ENCOUNTER → 2021-07-26 09:49 | Outpatient (BNVA) | payer OTHER, SELFPAY | PROVIDERS: PCP Internal Medicine; Visit Provider Internal Medicine | DX: J84.9 Interstitial pulmonary disease, unspecified (principal); J98.4 Other disorders of lung; J96.91 Respiratory failure, unspecified with hypoxia; U09.9 Post COVID-19 condition, unspecified; Z87.09 Personal history of other diseases of the respiratory system | CPT/HCPCS: 99212 ==

== ENCOUNTER → 2021-08-09 09:45 | Outpatient (BNVA) | payer OTHER, SELFPAY | PROVIDERS: PCP Internal Medicine; Visit Provider Registered Nurse Diabetes Educator | DX: E11.65 Type 2 diabetes mellitus with hyperglycemia (principal); Z71.89 Other specified counseling | CPT/HCPCS: 99211 ==

== ENCOUNTER 2021-09-20 09:58 | Outpatient (REF) | payer OTHER, SELFPAY ==
--- NOTE | ~2021-09-20 | MM_ITS ---
EXAMINATION: MM SCREENING DIGITAL BREAST TOMOSYNTHESIS, BILATERAL CLINICAL INFORMATION: Screening. Asymptomatic. The lifetime risk of breast cancer based on the Tyrer-Cuzick Model is 7%. COMPARISON: Mammography: 07/29/2020, 05/18/2019, 05/14/2018 TECHNIQUE: Digital breast tomosynthesis is performed in both the craniocaudal and mediolateral oblique views along with computer-aided detection (CAD). Synthesized 2D images are generated from the tomosynthesis. FINDINGS: There are scattered areas of fibroglandular density (ACR BI-RADS breast composition Category b). There are no significant masses, abnormal calcifications, or other abnormalities. Parenchymal pattern is similar to prior exams. The axilla are unremarkable. There is a dermal lesion again seen overlying the posterior upper outer right breast. MM/MM tomosynthesis screening BI IMPRESSION: No mammographic evidence of malignancy. ASSESSMENT: BI-RADS 2: Benign RECOMMENDATION: Routine annual mammography screening. This patient's information was entered into a reminder system with a target due date for their next mammogram.
== END 2021-09-20 09:59 | disposition home or self-care (01) ==
LOC: HO.MAMMO 09:58
PROVIDERS: Visit Provider Internal Medicine
DX: Z12.31 Encounter for screening mammogram for malignant neoplasm of breast (principal); E11.65 Type 2 diabetes mellitus with hyperglycemia; E11.42 Type 2 diabetes mellitus with diabetic polyneuropathy; E11.21 Type 2 diabetes mellitus with diabetic nephropathy
CPT/HCPCS: 77063; 77067; 99211

== ENCOUNTER → 2021-09-27 10:23 | Outpatient (BNVA) | payer OTHER, SELFPAY | PROVIDERS: PCP Internal Medicine; Visit Provider Internal Medicine | DX: U09.9 Post COVID-19 condition, unspecified (principal); J98.4 Other disorders of lung; J96.91 Respiratory failure, unspecified with hypoxia | CPT/HCPCS: 99212 ==

== ENCOUNTER 2021-10-07 18:39 | Emergency (ER) | payer OTHER, SELFPAY ==
--- NOTE | ~2021-10-07 | XR_ITS ---
EXAMINATION: XR CHEST CLINICAL INFORMATION: Rule out pulmonary edema COMPARISON: 02/08/2021 TECHNIQUE: Frontal view of the chest was obtained. FINDINGS: Stable peripherally predominant patchy opacities within the left lung. Right lung is clear. Cardiomegaly and pulmonary venous congestion without overt edema. No pleural effusion or pneumothorax. No acute osseous abnormalities. XR/XR chest 1V IMPRESSION: No evidence of pulmonary edema. Stable chronic pleural and parenchymal changes in the left lung.
[2021-10-07 19:02] VITALS: BP 184/104; PULSE 122; RESP 18; TEMP 36.8; O2SAT 98; BMI 46.7
--- NOTE | 2021-10-07 19:07 | ECG_ITS ---
Test Reason : hypertension Blood Pressure : / mmHG Vent. Rate : 119 BPM Atrial Rate : 119 BPM P-R Int : 154 ms QRS Dur : 072 ms QT Int : 328 ms P-R-T Axes : 048 -27 051 degrees QTc Int : 461 ms Sinus tachycardia cannot exclude Anterior infarct , age undetermined Leftward axis Abnormal ECG When compared with ECG of 18-NOV-2020 16:51, Anterior infarct is now Present Nonspecific T wave abnormality now evident in Anterior leads Referred By: Generic ED Physician Electronically Signed By:JAVI PEREIRA
--- NOTE | 2021-10-07 19:30 | PC.NURSE ---
pt declined bloodwork prior to provider meeting w pt.
--- NOTE | 2021-10-07 20:06 | ED_ITS ---
HPI - General Adult General Chief complaint: General Medical Stated complaint: Feet swelling Time Seen by Provider: 10/07/21 19:57 Source: patient Mode of arrival: ambulatory Limitations: no limitations History of Present Illness HPI narrative: Patient comes to the emergency room complaining of lower extremity edema. Patient states it has been 3 days since her legs have constantly been swollen. Patient states that in the past she has had swollen legs, her PCP took off pioglytazone, amlodipine. Patient takes daily prednisone for her lungs. Patient denies chest pain or shortness of breath, patient uses 4 L of oxygen at baseline since last year after getting COVID. Patient denies chest pain. Patient called her primary care physician, was given an appointment until the end of October. Denies calf pain. Related Data Home Medications Medication Instructions Recorded Confirmed divalproex 500 mg tablet,delayed 500 mg PO BID 03/31/20 08/10/21 release escitalopram oxalate 20 mg tablet 20 mg PO DAILY 03/31/20 08/10/21 clonazepam 1 mg tablet 1 mg PO BID PRN 03/20/21 08/10/21 fluticasone propionate 50 spray intranasal 03/20/21 08/10/21 mcg/actuation nasal spray,suspension hydrochlorothiazide 25 mg tablet 25 mg PO DAILY 09/27/21 prednisone 10 mg tablet 5 mg PO DAILY ILD 09/27/21 Previous Rx's Medication Instructions Recorded atenolol 50 mg tablet 50 mg PO DAILY #180 tabs 10/13/20 aspirin 81 mg tablet,delayed 81 mg PO DAILY #90 tabs 11/11/20 release (Adult Aspirin Regimen) albuterol sulfate 90 mcg/actuation 4 puff inhalation Q3H PRN 12/21/20 aerosol inhaler (Ventolin HFA) Shortness Of Breath/Wheezing #8.5 grams cholecalciferol (vitamin D3) 50 50 mcg PO DAILY #90 tabs 02/05/21 mcg (2,000 unit) tablet (Vitamin D3) nebulizers (Aeroneb Go Nebulizer) #1 ea 02/13/21 melatonin 1 mg tablet 1 mg PO BEDTIME PRN sleep #30 tabs 05/08/21 lancets 28 gauge (FreeStyle #100 ea 05/23/21 Lancets) pioglitazone 30 mg tablet (Actos) 30 mg PO DAILY #30 tabs 06/01/21 empagliflozin 12.5 mg-metformin 1 tab PO BID #30 tabs 06/02/21 1,000 mg tablet (Synjardy) blood-glucose meter (FreeStyle #1 ea 06/12/21 [place] Lite kit) blood sugar diagnostic (FreeStyle #50 ea 06/14/21 Lite Strips) Breo Ellipta 200 mcg-25 mcg/dose 1 ea inhalation DAILY #60 ea 07/17/21 powder for inhalation (fluticasone furoate-vilanterol) acetaminophen 500 mg tablet 1,000 mg PO Q6H PRN pain #30 tabs 07/24/21 (Acetaminophen Extra Strength) ipratropium bromide 0.02 % 2.5 ml inhalation Q6H PRN 07/24/21 solution for inhalation shortness of breath or wheezing 30 days #120 mL atorvastatin 10 mg tablet 10 mg PO QPM #90 tabs 07/27/21 fexofenadine 180 mg tablet 180 mg PO DAILY 90 days #90 tabs 08/10/21 hydrochlorothiazide 12.5 mg tablet 12.5 mg PO DAILY #30 tabs 08/10/21 olopatadine 0.1 % eye drops 1 drp ophthalmic (eye) BID #5 mL 08/10/21 ibuprofen 600 mg tablet 600 mg PO Q8H PRN pain #30 tabs 09/22/21 Allergies Allergy/AdvReac Type Severity Reaction Status Date / Time egg Allergy Unknown throat Verified 10/07/21 19:02 swells up lisinopril Allergy Unknown Unknown Verified 10/07/21 19:02 metformin [METFORMIN] Allergy Unknown TACHYCARDIA Verified 10/07/21 19:02 AND DIARRHEA milk Allergy Unknown throat Verified 10/07/21 19:02 swells up Review of Systems Review of Systems: Constitutional : No Weight loss, No Fever, No Chills, No Night Sweats, No Fatigue, No Malaise ENT/Mouth : No Hearing loss, No Ear Pain, No Nasal Congestion, No Sinus Pain, No Hoarseness, No sore throat, No Rhinorrhea, No Swallowing Difficulty Eyes: No Eye Pain, No Swelling, No Redness, No Foreign Body, No Discharge, No Vision Changes Cardiovascular : No Chest Pain, No SOB, No Dyspnea on Exertion, No Orthopnea, no palpitations, complaining of lower extremity edema Respiratory : No Cough, No Sputum, No Wheezing, No Smoke Exposure, No Dyspnea Gastrointestinal : No Nausea, No Vomiting, No Diarrhea, No Constipation, No abdominal Pain, No Hematochezia, No Melena Genitourinary : no irregular bleeding, No Dysuria, No Urinary Frequency, No Hematuria, No Urinary Incontinence, No Urgency, No Flank Pain, No Urinary Flow Changes, No Hesitancy Musculoskeletal : No joint pain, No Myalgias, No Joint Swelling Skin : No Skin Lesions, No rash Neuro : No Weakness, No Numbness, No Paresthesias, No Loss of Consciousness, No Dizziness, No Headache Psych : No Anxiety/Panic, No Depression, No SI/HI/AH/VH, No Social Issues, Heme/Lymph: No Bruising, No Bleeding,No Lymphadenopathy Endocrine : No Polyuria, No Polydipsia, No Temperature Intolerance ON LICENSE OF [facility] Past Medical History Medical History Acute meniscal tear of right knee Anxiety and depression Bilateral carpal tunnel syndrome COVID-19 virus infection COVID-19 virus infection Diabetic nephropathy Diabetic nephropathy associated with type 2 diabetes mellitus Diabetic neuropathy associated with type 2 diabetes mellitus GERD (gastroesophageal reflux disease) History of acute respiratory distress syndrome (ARDS) Hypercholesterolemia Hypertension Insomnia Lower extremity edema Obesity (BMI 30-39.9) Osteoarthritis Pneumonia Pneumonia due to severe acute respiratory syndrome coronavirus 2 (SARS-CoV-2) Post covid-19 condition, unspecified Psoriasis Respiratory failure with hypoxia Restrictive lung disease Right thyroid nodule Type 2 diabetes mellitus with hyperglycemia Surgical History History of section History of cholecystectomy History of D&C History of tubal ligation Family History Family History Father Medical history unknown Mother Diabetes Hypertension Maternal Grandmother Pancreatic cancer Maternal Aunt Breast cancer Sister Breast cancer Other Substance use disorder Social History Social History Household Members: Family Housing: Apartment Do you presently have visiting nurse or other home services: No Alcohol intake: never Patient Tobacco Use Status: Never used Tobacco e-Cigarette/Vaping Use: Never Used Second Hand Smoke Exposure: Yes Advance Directives: No Advance Directives Information Provided: No service: No Current occupational status: disabled Cognitive needs: No Hearing needs: No Vision needs: No Physical Exam ED Vital Signs: Vital Signs - 24 hr 10/07/21 19:02 10/08/21 00:00 Temperature 98.3 F Pulse Rate 122 H 88 Respiratory Rate 18 16 Blood Pressure 184/104 H 179/98 H Pulse Oximetry 98 98 Oxygen Delivery Method Nasal Cannula Nasal Cannula Oxygen Flow Rate 4 BMI result Body Mass Index 46.7 Const Other: Appearance: Alert. Oriented X3. No acute distress. Eyes: Pupils equal, round and reactive to light. ENT: Pharynx normal. Neck: Normal inspection. Neck supple. No lymph nodes noted. No crepitus CVS: Heart rate in the 120s, Pulses normal. Normal S1 and S2 Respiratory: No respiratory distress. Breath sounds normal. No Wheezing. No rales Abdomen: Soft and nontender. No rigidity. No distention. Skin: Skin warm and dry. Normal skin color. Normal skin turgor. Extremities: +2 pitting edema bilaterally, no calf pain Neuro: Oriented X 3. No motor deficit. No sensory deficit. Moving all extremities. No slurred speech. CN 2 through 12 grossly intact Psych: calm, cooperative, normal affect Course Course Course Narrative: The patient's knowledge, she has never been diagnosed with CHF. All of patient's labs and chest x-ray are pending. Pt has an elevated Cr, pt receiving IV fluids, BNP not elevated. Lower extremi ty edema likely secondary to chronic steroid use. We will go ahead, hydrate the patient, repeat creatinine. Patient will likely need to use compression stockings to help with the pedal edema. Patient informed, agrees with plan. Patient's repeat chemistry improved, sodium improved, potassium improved, and the creatinine is back to normal. Patient's legs were wrapped in Vishal bands. I discussed with the patient making changes to her blood pressure medication to help with the potassium. Patient states that at this time she prefers to keep her meds as they are, she has an appointment pending with her primary care physician and they will discuss the potassium levels and blood pressure medicat ions changes. Medical Decision Making Lab Data Result diagrams: 10/07/21 20:13 10/08/21 00:51 Labs: Lab Results 10/07/21 10/07/21 10/07/21 Range/Units 20:13 20:13 20:13 WBC 12.2 H (4.8-10.8) X10*3/uL RBC 4.79 (4.20-5.50) X10*6/uL Hgb 13.1 (12.0-16.0) g/dl Hct 41.4 (37.0-47.0) % MCV 86.4 (80.0-98.0) fL MCH 27.3 (27.0-33.0) pg MCHC 31.6 (31.0-35.0) g/dl RDW 15.4 (11.0-16.0) % Plt Count 257 (160-400) X10*3/uL MPV 10.9 (9.4-12.3) fL Immature Gran % (Auto) 0.5 H (0.0-0.4) % Neut % (Auto) 81.7 H (45-73) % Lymph % (Auto) 10.2 L (20-40) % [place] % (Auto) 6.3 (2-11) % Eos % (Auto) 0.8 (0-4) % Baso % (Auto) 0.5 (0-2) % Lymph # (Auto) 1.3 (1.2-4.9) X10*3/uL [place] # (Auto) 0.8 (0.1-1.2) X10*3/uL Eos # (Auto) 0.1 (0.0-0.4) X10*3/uL Baso # (Auto) 0.1 (0.0-0.2) X10*3/uL Abs Immat Gran (auto) 0.06 H (0.00-0.03) X10*3/uL Absolute Neuts (auto) 10.0 H (2.0-8.3) x10*3/uL Absolute Nucleated RBC 0.000 (0.0-0.012) X10*3/uL Nucleated RBC % (auto) 0.0 (0.0-0.2) /100WBC PT (10.0-13.1) SEC INR (0.9-1.1) Sodium 132 L (135-145) mmol/L Potassium 3.1 L D (3.3-5.1) mmol/L Chloride 93 L (96-108) mmol/L Carbon Dioxide 30 H (22-29) mmol/L Anion Gap 12 (12-20) BUN 17 H (9-16) mg/dL Creatinine 1.54 H (0.5-1.4) mg/dL Estim Creat Clear Calc 51.6 Estimated GFR 35 Random Glucose 250 H (60-115) mg/dL Calcium 9.4 D (8.4-10.2) mg/dL Troponin I High Sens 5.4 (<3.5-17.0) ng/L B-Natriuretic Peptide 16 (<100) pg/mL 10/07/21 10/08/21 Range/Units 20:13 00:51 WBC (4.8-10.8) X10*3/uL RBC (4.20-5.50) X10*6/uL Hgb (12.0-16.0) g/dl Hct (37.0-47.0) % MCV (80.0-98.0) fL MCH (27.0-33.0) pg MCHC (31.0-35.0) g/dl RDW (11.0-16.0) % Plt Count (160-400) X10*3/uL MPV (9.4-12.3) fL Immature Gran % (Auto) (0.0-0.4) % Neut % (Auto) (45-73) % Lymph % (Auto) (20-40) % [place] % (Auto) (2-11) % Eos % (Auto) (0-4) % Baso % (Auto) (0-2) % Lymph # (Auto) (1.2-4.9) X10*3/uL [place] # (Auto) (0.1-1.2) X10*3/uL Eos # (Auto) (0.0-0.4) X10*3/uL Baso # (Auto) (0.0-0.2) X10*3/uL Abs Immat Gran (auto) (0.00-0.03) X10*3/uL Absolute Neuts (auto) (2.0-8.3) x10*3/uL Absolute Nucleated RBC (0.0-0.012) X10*3/uL Nucleated RBC % (auto) (0.0-0.2) /100WBC PT 10.4 (10.0-13.1) SEC INR 0.9 (0.9-1.1) Sodium 140 (135-145) mmol/L Potassium 3.8 D (3.3-5.1) mmol/L Chloride 103 (96-108) mmol/L Carbon Dioxide 26 (22-29) mmol/L Anion Gap 15 (12-20) BUN 18 H (9-16) mg/dL Creatinine 1.29 (0.5-1.4) mg/dL Estim Creat Clear Calc 61.5 Estimated GFR 43 Random Glucose 239 H (60-115) mg/dL Calcium 8.6 D (8.4-10.2) mg/dL Troponin I High Sens (<3.5-17.0) ng/L B-Natriuretic Peptide (<100) pg/mL Discharge Plan Discharge Clinical Impression: Bilateral lower extremity edema, Hyponatremia, Hypokalemia, PEREZ (acute kidney injury) Patient Disposition: Home, Self-Care Instructions: Leg Edema (ED), Hypokalemia (ED) Additional Instructions: Please follow-up with your primary care physician tomorrow. If you have any worsening or new symptoms, please return to the emergency room or call 911 Prescriptions: No Action atenolol 50 mg tablet 50 mg PO DAILY Qty: 180 2RF aspirin [Adult Aspirin Regimen] 81 mg tablet,delayed release (DR/EC) 81 mg PO DAILY Qty: 90 3RF cholecalciferol (vitamin D3) [Vitamin D3] 50 mcg (2,000 unit) tablet 50 mcg PO DAILY Qty: 90 3RF (DME) lancets [FreeStyle Lancets] 28 gauge misc See Rx Instructions topical TID Qty: 100 0RF Rx Instructions: As directed 3 times daily Synjardy 12.5-1,000 mg tablet 1 tab PO BID Qty: 30 4RF (DME) blood-glucose meter [FreeStyle [place] Lite] Kit See Rx Instructions .Route Qty: 1 0RF Rx Instructions: As directed (DME) FreeStyle Lite Strips Strip See Rx Instructions Not Applicable .MEDSUPPLY Qty: 50 8RF Rx Instructions: As directed Breo Ellipta 200-25 mcg/dose blister with device 1 ea inhalation DAILY Qty: 60 3RF ipratropium bromide 0.02 % solution 2.5 ml inhalation Q6H PRN (Reason: shortness of breath or wheezing) 30 Days Qty: 120 3RF acetaminophen [Acetaminophen Extra Strength] 500 mg tablet 1,000 mg PO Q6H PRN (Reason: pain) Qty: 30 11RF atorvastatin 10 mg tablet 10 mg PO QPM Qty: 90 1RF fexofenadine 180 mg tablet 180 mg PO DAILY 90 Days Qty: 90 1RF olopatadine 0.1 % drops 1 drp ophthalmic (eye) BID Qty: 5 3RF Rx Instructions: separate doses by at least 6-8 hours ibuprofen 600 mg tablet 600 mg PO Q8H PRN (Reason: pain) Qty: 30 0RF albuterol sulfate [Ventolin HFA] 90 mcg/actuation Hfa Aerosol Inhaler 4 puff inhalation Q3H PRN (Reason: Shortness Of Breath/Wheezing) Qty: 8.5 0RF (DME) Aeroneb Go Nebulizer Misc See Rx Instructions .Route Qty: 1 0RF Rx Instructions: As directed melatonin 1 mg tablet 1 mg PO BEDTIME PRN (Reason: sleep) Qty: 30 0RF hydrochlorothiazide 12.5 mg tablet 12.5 mg PO DAILY Qty: 30 3RF escitalopram oxalate 20 mg tablet 20 mg PO DAILY divalproex 500 mg tablet,delayed release (DR/EC) 500 mg PO BID pioglitazone [Actos] 30 mg tablet 30 mg PO DAILY Qty: 30 5RF clonazepam 1 mg tablet 1 mg PO BID PRN fluticasone propionate 50 mcg/actuation spray,suspension intranasal prednisone 10 mg tablet 5 mg PO DAILY hydrochlorothiazide 25 mg tablet 25 mg PO DAILY
[2021-10-07 20:17] LABS: MANUAL DIFF FLAG NO
[2021-10-07 20:23] LABS: Basophils Absolute Auto 0.1 X10*3/uL (0.0-0.2); Basophils Percent Auto 0.5 % (0-2); Eosinophils Absolute Auto 0.1 X10*3/uL (0.0-0.4); Eosinophils Percent Auto 0.8 % (0-4); Hematocrit 41.4 % (37.0-47.0); Hemoglobin 13.1 g/dl (12.0-16.0); Imm Gran Abs Auto 0.06 X10*3/uL (0.00-0.03); Imm Gran Pct Auto 0.5 % (0.0-0.4); Lymphocytes Absolute Auto 1.3 X10*3/uL (1.2-4.9); Lymphocytes Percent Auto 10.2 % (20-40); Mean Corpuscular HGB Conc 31.6 g/dl (31.0-35.0); Mean Corpuscular Hemoglobin 27.3 pg (27.0-33.0); Mean Corpuscular Volume 86.4 fL (80.0-98.0); Mean Platelet Volume 10.9 fL (9.4-12.3); Monocytes Absolute Auto 0.8 X10*3/uL (0.1-1.2); Monocytes Percent Auto 6.3 % (2-11); Neutrophils Percent Auto 81.7 % (45-73); Platelet Count 257 X10*3/uL (160-400); Red Blood Count 4.79 X10*6/uL (4.20-5.50); Red Cell Distribution Width 15.4 % (11.0-16.0); White Blood Count 12.2 X10*3/uL (4.8-10.8)
[2021-10-07 20:29] LABS: INTERNATIONAL NORM RATIO 0.9 (0.9-1.1); Prothrombin Time 10.4 SEC (10.0-13.1)
[2021-10-07 20:33] LABS: Anion Gap 12 (12-20); Blood Urea Nitrogen 17 mg/dL (9-16); Calcium 9.4 mg/dL (8.4-10.2); Carbon Dioxide 30 mmol/L (22-29); Chloride 93 mmol/L (96-108); Creatinine Clr Calc Pharmacy 51.6; Estimated Glomerular Filt Rate 35; Glucose Random 250 mg/dL (60-115); Potassium 3.1 mmol/L (3.3-5.1); Sodium 132 mmol/L (135-145)
[2021-10-07 20:41] LABS: Troponin-I High Sensitivity 5.4 ng/L (<3.5-17.0)
[2021-10-07] MEDS: Potassium Chloride Packet 20 MEQ PACKET 40 MEQ PO (21:29)
[2021-10-07 21:57] LABS: B Type Natriuretic Peptide 16 pg/mL (<100)
[2021-10-07] MEDS: 0.9 % Sodium Chloride 1,000 ML 999 ML IVCONT (23:06)
--- NOTE | 2021-10-07 23:06 | PC.NURSE ---
20G IV placed right AC, ivf running.
[2021-10-08] VITALS: BP 179/98; PULSE 88; RESP 16; O2SAT 98
[2021-10-08 01:25] LABS: Anion Gap 15 (12-20); Blood Urea Nitrogen 18 mg/dL (9-16); Calcium 8.6 mg/dL (8.4-10.2); Carbon Dioxide 26 mmol/L (22-29); Chloride 103 mmol/L (96-108); Creatinine Clr Calc Pharmacy 61.5; Estimated Glomerular Filt Rate 43; Glucose Random 239 mg/dL (60-115); Potassium 3.8 mmol/L (3.3-5.1); Sodium 140 mmol/L (135-145)
--- NOTE | 2021-10-08 02:11 | PC.NURSE ---
bilateral lower legs wrapped w shon bandage by tech IV removed.
== END 2021-10-08 02:12 | disposition home or self-care (01) ==
PROVIDERS: Emergency Provider Emergency Medicine; PCP Internal Medicine
DX: R60.0 Localized edema (principal); E87.1 Hypo-osmolality and hyponatremia; E87.6 Hypokalemia; N17.9 Acute kidney failure, unspecified; E11.9 Type 2 diabetes mellitus without complications; I10 Essential (primary) hypertension; E78.00 Pure hypercholesterolemia, unspecified; J80 Acute respiratory distress syndrome; E66.9 Obesity, unspecified; Z68.42 Body mass index [BMI] 45.0-49.9, adult; Z99.81 Dependence on supplemental oxygen; Z79.52 Long term (current) use of systemic steroids; Z79.82 Long term (current) use of aspirin; Z87.01 Personal history of pneumonia (recurrent); Z87.09 Personal history of other diseases of the respiratory system; Z79.899 Other long term (current) drug therapy; Z79.02 Long term (current) use of antithrombotics/antiplatelets
CPT/HCPCS: 36415; 71045; 80048; 83880; 84484; 85025; 85610; 93005; 96360; 99284

== ENCOUNTER 2021-10-11 07:24 | Outpatient (REF) | payer OTHER, SELFPAY ==
[2021-10-11 07:46] LABS: MANUAL DIFF FLAG NO
[2021-10-11 08:05] LABS: Basophils Absolute Auto 0.1 X10*3/uL (0.0-0.2); Basophils Percent Auto 0.6 % (0-2); Eosinophils Absolute Auto 0.1 X10*3/uL (0.0-0.4); Eosinophils Percent Auto 1.7 % (0-4); Hematocrit 41.7 % (37.0-47.0); Hemoglobin 12.9 g/dl (12.0-16.0); Imm Gran Abs Auto 0.08 X10*3/uL (0.00-0.03); Lymphocytes Absolute Auto 1.4 X10*3/uL (1.2-4.9); Lymphocytes Percent Auto 16.3 % (20-40); Mean Corpuscular HGB Conc 30.9 g/dl (31.0-35.0); Mean Corpuscular Hemoglobin 26.9 pg (27.0-33.0); Mean Corpuscular Volume 87.1 fL (80.0-98.0); Mean Platelet Volume 10.7 fL (9.4-12.3); Monocytes Absolute Auto 0.5 X10*3/uL (0.1-1.2); Monocytes Percent Auto 6.4 % (2-11); Neutrophils Absolute Auto 6.2 x10*3/uL (2.0-8.3); Platelet Count 241 X10*3/uL (160-400); Red Blood Count 4.79 X10*6/uL (4.20-5.50); Red Cell Distribution Width 15.4 % (11.0-16.0); White Blood Count 8.4 X10*3/uL (4.8-10.8)
[2021-10-11 08:12] LABS: Estimated Average Glucose 192 mg/dL; Hemoglobin A1c % 8.3 %
[2021-10-11 08:33] LABS: Alanine Aminotransferase 31 U/L (0-31); Albumin Level 4.1 g/dL (3.5-5.0); Alkaline Phosphatase 93 U/L (39-117); Anion Gap 16 (12-20); Aspartate Amino Transferase 18 U/L (5-31); Bilirubin Total 0.4 mg/dL (0.0-1.0); Blood Urea Nitrogen 15 mg/dL (9-16); Calcium 9.4 mg/dL (8.4-10.2); Carbon Dioxide 27 mmol/L (22-29); Chloride 104 mmol/L (96-108); Cholesterol 166 mg/dL; Estimated Glomerular Filt Rate 56; Glucose Fasting 200 mg/dL (60-99); HDL Cholesterol 56 mg/dL; LDL Cholesterol Calculated 88 mg/dl; Potassium 4.1 mmol/L (3.3-5.1); Sodium 143 mmol/L (135-145); Total Protein 7.2 g/dL (6.5-8.0); Triglycerides 113 mg/dL
[2021-10-11 08:41] LABS: B Type Natriuretic Peptide 14 pg/mL (<100)
[2021-10-11 08:50] LABS: Creatinine Urine 50.81 mg/dL
[2021-10-11 08:57] LABS: Free T4 (Free Thyroxine) 1.04 ng/dL (0.71-1.85); TSH reflex Free T4 1.22 uIU/mL (0.32-4.0); Vitamin D 25-OH Total 44.5 ng/mL (>30)
[2021-10-11 09:34] LABS: Vitamin B12 330 pg/mL (200-900)
[2021-10-12 20:06] LABS: Thyroglobulin Antibodies <1 IU/mL (< or = 1)
== END 2021-10-11 07:25 | disposition home or self-care (01) ==
LOC: HO.LAB 07:24
PROVIDERS: PCP Internal Medicine; Visit Provider Internal Medicine
DX: E04.2 Nontoxic multinodular goiter (principal); E11.21 Type 2 diabetes mellitus with diabetic nephropathy; E11.65 Type 2 diabetes mellitus with hyperglycemia; I10 Essential (primary) hypertension; E78.00 Pure hypercholesterolemia, unspecified
CPT/HCPCS: 36415; 80053; 80061; 82043; 82306; 82607; 82746; 83036; 83880; 84439; 84443; 85025; 86800

== ENCOUNTER → 2021-10-19 10:09 | Outpatient (BNVA) | payer OTHER, SELFPAY | PROVIDERS: PCP Internal Medicine; Visit Provider Internal Medicine Endocrinology, Diabetes & Metabolism | DX: E11.65 Type 2 diabetes mellitus with hyperglycemia (principal); E04.2 Nontoxic multinodular goiter | CPT/HCPCS: 82947; 99212 ==

== ENCOUNTER → 2021-10-27 07:45 | Outpatient (BNVA) | payer OTHER, SELFPAY | PROVIDERS: PCP Internal Medicine; Visit Provider Registered Nurse Diabetes Educator | DX: E11.65 Type 2 diabetes mellitus with hyperglycemia (principal); Z71.89 Other specified counseling; Z79.4 Long term (current) use of insulin | CPT/HCPCS: 99211 ==

== ENCOUNTER 2021-10-31 07:20 | Outpatient (REF) | payer OTHER, SELFPAY ==
[2021-10-31 08:30] LABS: Anion Gap 15 (12-20); Blood Urea Nitrogen 12 mg/dL (9-16); Calcium 8.6 mg/dL (8.4-10.2); Carbon Dioxide 26 mmol/L (22-29); Chloride 104 mmol/L (96-108); Estimated Glomerular Filt Rate 57; Glucose Random 195 mg/dL (60-115); Potassium 3.7 mmol/L (3.3-5.1); Sodium 141 mmol/L (135-145)
== END 2021-10-31 07:21 | disposition home or self-care (01) ==
LOC: HO.LAB 07:20
PROVIDERS: PCP Internal Medicine; Visit Provider Internal Medicine Endocrinology, Diabetes & Metabolism
DX: E11.65 Type 2 diabetes mellitus with hyperglycemia (principal)
CPT/HCPCS: 36415; 80048

== ENCOUNTER → 2021-11-10 08:49 | Outpatient (BNVA) | payer OTHER, SELFPAY | PROVIDERS: PCP Internal Medicine; Visit Provider Registered Nurse Diabetes Educator | DX: E11.65 Type 2 diabetes mellitus with hyperglycemia (principal) | CPT/HCPCS: 99211 ==

== ENCOUNTER → 2021-12-07 09:30 | Outpatient (BNVA) | payer OTHER, SELFPAY | PROVIDERS: PCP Internal Medicine; Visit Provider Internal Medicine | DX: J98.4 Other disorders of lung (principal); U09.9 Post COVID-19 condition, unspecified; R09.02 Hypoxemia; Z87.09 Personal history of other diseases of the respiratory system | CPT/HCPCS: 99212 ==

== ENCOUNTER → 2021-12-21 08:18 | Outpatient (BNVA) | payer OTHER, SELFPAY | PROVIDERS: PCP Internal Medicine; Visit Provider Registered Nurse Diabetes Educator | DX: E11.65 Type 2 diabetes mellitus with hyperglycemia (principal) | CPT/HCPCS: 99211 ==

== ENCOUNTER → 2022-01-17 08:23 | Outpatient (BNVA) | payer OTHER, SELFPAY | PROVIDERS: PCP Internal Medicine; Visit Provider Registered Nurse Diabetes Educator | DX: E11.65 Type 2 diabetes mellitus with hyperglycemia (principal) | CPT/HCPCS: 99211 ==

== ENCOUNTER → 2022-02-15 09:57 | Outpatient (BNVA) | payer OTHER, SELFPAY | PROVIDERS: PCP Internal Medicine; Visit Provider Internal Medicine | DX: J84.10 Pulmonary fibrosis, unspecified (principal); J12.81 Pneumonia due to SARS-associated coronavirus; J96.91 Respiratory failure, unspecified with hypoxia; U09.9 Post COVID-19 condition, unspecified; E11.65 Type 2 diabetes mellitus with hyperglycemia; E11.42 Type 2 diabetes mellitus with diabetic polyneuropathy; E11.21 Type 2 diabetes mellitus with diabetic nephropathy; E66.01 Morbid (severe) obesity due to excess calories; Z68.42 Body mass index [BMI] 45.0-49.9, adult; Z99.81 Dependence on supplemental oxygen; Z79.52 Long term (current) use of systemic steroids; Z79.4 Long term (current) use of insulin; Z79.899 Other long term (current) drug therapy | CPT/HCPCS: 99212 ==

== ENCOUNTER → 2022-02-16 07:38 | Outpatient (BNVA) | payer OTHER, SELFPAY | PROVIDERS: PCP Internal Medicine; Visit Provider Internal Medicine Endocrinology, Diabetes & Metabolism | DX: E11.65 Type 2 diabetes mellitus with hyperglycemia (principal); E04.2 Nontoxic multinodular goiter | CPT/HCPCS: 82947; 99212 ==

== ENCOUNTER 2022-04-22 22:16 | Emergency (ER) | payer OTHER, SELFPAY ==
--- NOTE | ~2022-04-22 | XR_ITS ---
EXAMINATION: XR CHEST CLINICAL INFORMATION: Hypertension COMPARISON: Multiple priors, most recently 10/07/2021 TECHNIQUE: Frontal view of the chest was obtained. FINDINGS: The lungs are well expanded. Peripheral opacification at the left midlung. This is similar to prior imaging. No new consolidation. No pleural effusion or pneumothorax. The cardiomediastinal silhouette remains prominent, unchanged. XR/XR chest 1V IMPRESSION: Peripheral opacification at the left midlung is similar to prior imaging, likely chronic. No new consolidation.
[2022-04-22 22:40] VITALS: BP 180/89; PULSE 79; RESP 20; TEMP 36.7; O2SAT 98; BMI 43.4
[2022-04-23 00:08] VITALS: BP 214/120
[2022-04-23 00:09] VITALS: BP 215/93
--- NOTE | 2022-04-23 00:19 | ECG_ITS ---
Test Reason : CHEST PAIN Blood Pressure : / mmHG Vent. Rate : 077 BPM Atrial Rate : 077 BPM P-R Int : 154 ms QRS Dur : 082 ms QT Int : 426 ms P-R-T Axes : 061 -24 -07 degrees QTc Int : 482 ms Sinus rhythm with sinus arrhythmia with frequent Premature ventricular complexes Possible Left atrial enlargement Septal infarct (cited on or before 07-OCT-2021) Abnormal ECG When compared with ECG of 07-OCT-2021 19:13, Premature ventricular complexes are now Present Vent. rate has decreased BY 42 BPM Questionable change in initial forces of Anterior leads Inverted T waves have replaced nonspecific T wave abnormality in Inferior leads T wave inversion now evident in Lateral leads Referred By: Nisa Bell Electronically Signed By:Oleksandr Hunt
--- NOTE | 2022-04-23 00:31 | ED.GENADULT ---
HPI - General Adult General Chief complaint: General Medical Stated complaint: High blood pressure Time Seen by Provider: 04/23/22 00:01 Source: patient and family Mode of arrival: ambulatory Limitations: no limitations History of Present Illness HPI narrative: 51-year-old female with history of diabetes, hypertension, hyperlipidemia, obesity, uncontrolled hypertension (follow-up with her PCP with multiple change of her blood pressure medication) patient stated that her blood pressure normally runs 210/120, patient felt some discomfort in her bilateral shoulder area, but declined CP or SOB, no headache, no weakness, no numbness. Patient now is asymptomatic and schedule to see her PCP in the morning. Related Data Home Medications Medication Instructions Recorded Confirmed divalproex 500 mg tablet,delayed 500 mg PO BID 03/31/20 02/16/22 release escitalopram oxalate 20 mg tablet 20 mg PO DAILY 03/31/20 02/16/22 clonazepam 1 mg tablet 1 mg PO BID PRN 03/20/21 02/16/22 Previous Rx's Medication Instructions Recorded albuterol sulfate 90 mcg/actuation 4 puff inhalation Q3H PRN 12/21/20 aerosol inhaler (Ventolin HFA) Shortness Of Breath/Wheezing #8.5 grams nebulizers (Aeroneb Go Nebulizer) #1 ea 02/13/21 melatonin 1 mg tablet 1 mg PO BEDTIME PRN sleep #30 tabs 05/08/21 lancets 28 gauge (FreeStyle #100 ea 05/23/21 Lancets) blood-glucose meter (FreeStyle #1 ea 06/12/21 [place] Lite kit) compress.stocking,knee,reg,lrg #12 ea 10/25/21 fluticasone propionate 50 2 spray intranasal DAILY 90 days 10/30/21 mcg/actuation nasal #3 ea spray,suspension pen needle, diabetic 32 gauge x #50 ea 10/30/21 5/32 (BD Patti 2nd Gen Pen Needle) olopatadine 0.1 % eye drops 1 drp ophthalmic (eye) BID #5 mL 10/31/21 atenolol 50 mg tablet 100 mg PO DAILY #180 tabs 11/07/21 cholecalciferol (vitamin D3) 50 50 mcg PO DAILY #90 tabs 01/14/22 mcg (2,000 unit) tablet (Vitamin D3) fexofenadine 180 mg tablet 180 mg PO DAILY 90 days #90 tabs 01/14/22 atorvastatin 10 mg tablet 10 mg PO QPM #90 tabs 01/17/22 insulin degludec 100 unit/mL (3 22 unit (0.22 mL) subcut BEDTIME 01/17/22 mL) subcutaneous pen (Tresiba #15 mL FlexTouch U-100 insulin) acetaminophen 500 mg tablet 1,000 mg PO Q6H PRN pain #30 tabs 01/24/22 (Acetaminophen Extra Strength) ipratropium bromide 0.02 % 2.5 ml inhalation Q6H PRN 01/24/22 solution for inhalation shortness of breath or wheezing 30 days #120 mL empagliflozin 12.5 mg-metformin 1 tab PO BID #60 tabs 02/20/22 1,000 mg tablet (Synjardy) ibuprofen 600 mg tablet 600 mg PO Q8H PRN pain #30 tabs 02/20/22 cyclobenzaprine 10 mg tablet 10 mg PO BEDTIME #14 tabs 02/26/22 meloxicam 15 mg tablet 15 mg PO DAILY #14 tabs 02/26/22 Breo Ellipta 200 mcg-25 mcg/dose 1 inh inhalation DAILY #60 ea 03/06/22 powder for inhalation (fluticasone furoate-vilanterol) ketoconazole 2 % shampoo 1 appl topical 2XW #120 mL 03/14/22 losartan 100 mg tablet 100 mg PO DAILY #90 tabs 03/22/22 prednisone 5 mg tablet 5 mg PO Q OTHER DAY #14 tabs 04/13/22 blood sugar diagnostic (FreeStyle #50 strips 04/17/22 Lite Strips) Allergies Allergy/AdvReac Type Severity Reaction Status Date / Time egg Allergy Unknown throat Verified 02/26/22 15:25 swells up lisinopril Allergy Unknown Unknown Verified 02/26/22 15:25 metformin [METFORMIN] Allergy Unknown TACHYCARDIA Verified 02/26/22 15:25 AND DIARRHEA milk Allergy Unknown throat Verified 02/26/22 15:25 swells up pioglitazone AdvReac Unknown Swelling Verified 02/26/22 15:25 Review of Systems Review of Systems: All other systems are reviewed and are negative Constitutional: Reports as per HPI and Reports no additional constitutional complaints Eyes: Reports as per HPI and Reports no additional eye complaints Reports system reviewed and no additional complaints, except as documented Cardiovascular: Reports as per HPI and Reports no additional cardiovascular complaints Respiratory: Reports as per HPI and Reports no additional respiratory complaints Gastrointestinal: Reports as per HPI and Reports no additional gastrointestinal complaints Genitourinary: Reports no additional female genitourinary complaints Musculoskeletal: Reports no additional musculoskeletal complaints Skin/Breast: Reports system reviewed and no additional complaints, except as docu Psychiatric: Reports no additional psychiatric complaints Endocrine: Reports no additional endocrine complaints Hematologic/Lymphatic: Reports no additional hematologic/lymphatic complaints Allergic/Immunologic: Reports no additional allergic/immunologic complaints Reports system reviewed and no additional complaints, except as documented and Reports Abnormal speech present [facility] Past Medical History Medical History Acute meniscal tear of right knee Anxiety and depression Bilateral carpal tunnel syndrome COVID-19 virus infection COVID-19 virus infection Diabetic nephropathy Diabetic nephropathy associated with type 2 diabetes mellitus Diabetic neuropathy associated with type 2 diabetes mellitus GERD (gastroesophageal reflux disease) History of acute respiratory distress syndrome (ARDS) Hypercholesterolemia Hypertension Hypoxemia Insomnia Lower extremity edema Obesity (BMI 30-39.9) Osteoarthritis Pneumonia Pneumonia due to severe acute respiratory syndrome coronavirus 2 (SARS-CoV-2) Post covid-19 condition, unspecified Psoriasis Respiratory failure with hypoxia Restrictive lung disease Right thyroid nodule Type 2 diabetes mellitus with hyperglycemia Surgical History History of section History of cholecystectomy History of D&C History of tubal ligation Family History Family History Father Medical history unknown Mother Diabetes Hypertension Maternal Grandmother Pancreatic cancer Maternal Aunt Breast cancer Sister Breast cancer Other Substance use disorder Social History Social History Household Members: Family Housing: Apartment Do you presently have visiting nurse or other home services: No Alcohol intake: never Patient Tobacco Use Status: Never used Tobacco e-Cigarette/Vaping Use: Never Used Second Hand Smoke Exposure: Yes Advance Directives: No service: No Current occupational status: disabled Cognitive needs: No Hearing needs: No Vision needs: No Physical Exam ED Vital Signs: Vital Signs - 24 hr 04/22/22 22:40 04/23/22 00:08 04/23/22 00:09 Temperature 98.1 F Pulse Rate 79 Respiratory Rate 20 Blood Pressure 180/89 H 214/120 H 215/93 H Pulse Oximetry 98 Oxygen Delivery Method Room Air BMI result Body Mass Index 43.4 Vital signs have been reviewed as appeared to be correct. Blood pressure normal. Heart rate normal. Respiration rate normal. Temperature normal. Oxygen saturation normal. Appearance: Alert. Oriented X3. No acute distress. Head: Normal external exam. Normocephalic. Atraumatic. No Martínez signs noted. No raccoon eyes noted Eyes: PERRLA. EOMI. Conjunctiva and sclera normal. Eyelids normal. ENT: TM's Normal. Pharynx normal. Uvula midline. Moist mucous membranes. No trismus noted. No drooling noted. No muffled voice noted. Neck: Normal inspection. Neck supple. FROM. No adenopathy. Thyroid Normal. No meningeal signs. No neck mass noted. CVS: Normal heart rate and rhythm. Heart sound normal. No murmurs noted. Pulses normal throughout. Respiratory: No respiratory distress. Painless inspiration. Breath sounds normal. No wheezes/rales/rhonchi noted. Chest nontender. No accessory muscle usage noted or decreased air movement noted. Abdomen: Soft and nontender. Bowel sounds normal in all 4 quadrants. No distention noted. No organomegaly noted. No visible injury noted. Back: No CVA tenderness. Full range of motion noted. Skin: Skin warm and dry. Normal skin color. Normal skin turgor. No rashes/lesions/lacerations noted. Extremities: No lower extremity edema. Extremities exhibit normal range of motion. Extremities nontender. Neuro: Oriented X 3. Cranial nerve exam: II-XII are grossly intact No motor deficit. No sensory deficit. Reflexes normal. Course Course Course Narrative: 51-year-old female came in for evaluation of elevated blood pressure patient with chronic elevation of blood pressure patient is not following salt restriction diet, blood pressure improved after given amlodipine in the emergency department. Labs revealed elevated lipase patient has no abdominal pain, no vomiting, no nausea. Unremarkable troponin, with unremarkable EKG. Medications Administered Discontinued Medications Generic Name Dose Route Start Last Admin Trade Name Freq PRN Reason Stop Dose Admin Amlodipine Besylate 10 mg 04/23/22 00:19 04/23/22 00:43 Amlodipine Besylate 10 Mg Tablet PO 04/23/22 00:20 10 mg ONCE ONE Administration Protocol Medical Decision Making Differential Diagnosis Differential Diagnoses: The differential diagnosis associated with the presentation includes (Essential hypertension, ACS, acute kidney injury.) Lab Data MDM Lab Attestation statement: I reviewed the patient's lab results. 04/23/22 00:46 04/23/22 00:46 Labs: Lab Results 04/23/22 04/23/22 04/23/22 Range/Units 00:46 00:46 00:46 WBC 9.5 (4.8-10.8) X10*3/uL RBC 5.08 (4.20-5.50) X10*6/uL Hgb 13.8 (12.0-16.0) g/dl Hct 43.6 (37.0-47.0) % MCV 85.8 (80.0-98.0) fL MCH 27.2 (27.0-33.0) pg MCHC 31.7 (31.0-35.0) g/dl RDW 15.3 (11.0-16.0) % Plt Count 238 (160-400) X10*3/uL MPV 11.2 (9.4-12.3) fL Immature Gran % (Auto) 0.3 (0.0-0.4) % Neut % (Auto) 74.9 H (45-73) % Lymph % (Auto) 15.4 L (20-40) % [place] % (Auto) 6.9 (2-11) % Eos % (Auto) 1.9 (0-4) % Baso % (Auto) 0.6 (0-2) % Lymph # (Auto) 1.5 (1.2-4.9) X10*3/uL [place] # (Auto) 0.7 (0.1-1.2) X10*3/uL Eos # (Auto) 0.2 (0.0-0.4) X10*3/uL Baso # (Auto) 0.1 (0.0-0.2) X10*3/uL Abs Immat Gran (auto) 0.03 (0.00-0.03) X10*3/uL Absolute Neuts (auto) 7.1 (2.0-8.3) x10*3/uL Absolute Nucleated RBC 0.000 (0.0-0.012) X10*3/uL Nucleated RBC % (auto) 0.0 (0.0-0.2) /100WBC Sodium 142 (135-145) mmol/L Potassium 4.1 (3.3-5.1) mmol/L Chloride 103 (96-108) mmol/L Carbon Dioxide 27 (22-29) mmol/L Anion Gap 16 (12-20) BUN 15 (9-16) mg/dL Creatinine 1.21 (0.5-1.4) mg/dL Estim Creat Clear Calc 64.3 Estimated GFR 47 Random Glucose 164 H (60-115) mg/dL Calcium 9.6 D (8.4-10.2) mg/dL Total Bilirubin 0.3 (0.0-1.0) mg/dL Direct Bilirubin < 0.2 (0.0-0.5) mg/dL AST 17 (5-31) U/L ALT 31 (0-31) U/L Alkaline Phosphatase 99 (39-117) U/L Troponin I High Sens 3.8 (<3.5-17.0) ng/L B-Natriuretic Peptide (<100) pg/mL Total Protein 6.8 (6.5-8.0) g/dL Albumin 4.0 (3.5-5.0) g/dL Lipase 148 H (8-78) U/L COVID-19 (SURENDRA) (Negative) COVID-19 Clin Com 04/23/22 04/23/22 Range/Units 00:46 00:46 WBC (4.8-10.8) X10*3/uL RBC (4.20-5.50) X10*6/uL Hgb (12.0-16.0) g/dl Hct (37.0-47.0) % MCV (80.0-98.0) fL MCH (27.0-33.0) pg MCHC (31.0-35.0) g/dl RDW (11.0-16.0) % Plt Count (160-400) X10*3/uL MPV (9.4-12.3) fL Immature Gran % (Auto) (0.0-0.4) % Neut % (Auto) (45-73) % Lymph % (Auto) (20-40) % [place] % (Auto) (2-11) % Eos % (Auto) (0-4) % Baso % (Auto) (0-2) % Lymph # (Auto) (1.2-4.9) X10*3/uL [place] # (Auto) (0.1-1.2) X10*3/uL Eos # (Auto) (0.0-0.4) X10*3/uL Baso # (Auto) (0.0-0.2) X10*3/uL Abs Immat Gran (auto) (0.00-0.03) X10*3/uL Absolute Neuts (auto) (2.0-8.3) x10*3/uL Absolute Nucleated RBC (0.0-0.012) X10*3/uL Nucleated RBC % (auto) (0.0-0.2) /100WBC Sodium (135-145) mmol/L Potassium (3.3-5.1) mmol/L Chloride (96-108) mmol/L Carbon Dioxide (22-29) mmol/L Anion Gap (12-20) BUN (9-16) mg/dL Creatinine (0.5-1.4) mg/dL Estim Creat Clear Calc Estimated GFR Random Glucose (60-115) mg/dL Calcium (8.4-10.2) mg/dL Total Bilirubin (0.0-1.0) mg/dL Direct Bilirubin (0.0-0.5) mg/dL AST (5-31) U/L ALT (0-31) U/L Alkaline Phosphatase (39-117) U/L Troponin I High Sens (<3.5-17.0) ng/L B-Natriuretic Peptide 178 H (<100) pg/mL Total Protein (6.5-8.0) g/dL Albumin (3.5-5.0) g/dL Lipase (8-78) U/L COVID-19 (SURENDRA) Negative (Negative) COVID-19 Clin Com See Note Independent Interpretation I performed an independent interpretation of an: EKG (Normal sinus rhythm at 77 beats per minutes, with occasional PVCs, no ST-T changes.) and Plain X-Ray (Chest: Peripheral opacification at the left midlung is similar to prior imaging, likely chronic. No new consolidation.) Radiology Impression Discussion of test interpretation with radiology: I have reviewed the radiologist's reading. Discharge Plan Discharge Clinical Impression: Essential hypertension Patient Disposition: Home, Self-Care Instructions: Hypertension (ED) Prescriptions: No Action (DME) lancets [FreeStyle Lancets] 28 gauge misc See Rx Instructions topical TID Qty: 100 0RF Rx Instructions: As directed 3 times daily (DME) blood-glucose meter [FreeStyle [place] Lite] Kit See Rx Instructions .Route Qty: 1 0RF Rx Instructions: As directed (DME) pen needle, diabetic [BD Patti 2nd Gen Pen Needle] 32 gauge x 5/32 needle See Rx Instructions .Route Qty: 50 4RF Rx Instructions: once a day fluticasone propionate 50 mcg/actuation spray,suspension 2 spray intranasal DAILY 90 Days Qty: 3 3RF olopatadine 0.1 % drops 1 drp ophthalmic (eye) BID Qty: 5 12RF Rx Instructions: separate doses by at least 6-8 hours fexofenadine 180 mg tablet 180 mg PO DAILY 90 Days Qty: 90 1RF cholecalciferol (vitamin D3) [Vitamin D3] 50 mcg (2,000 unit) tablet 50 mcg PO DAILY Qty: 90 3RF atorvastatin 10 mg tablet 10 mg PO QPM Qty: 90 3RF insulin degludec [Tresiba FlexTouch U-100] 100 unit/mL (3 mL) insulin pen 22 unit subcut BEDTIME Qty: 15 4RF acetaminophen [Acetaminophen Extra Strength] 500 mg tablet 1,000 mg PO Q6H PRN (Reason: pain) Qty: 30 11RF ipratropium bromide 0.02 % solution 2.5 ml inhalation Q6H PRN (Reason: shortness of breath or wheezing) 30 Days Qty: 120 3RF Synjardy 12.5-1,000 mg tablet 1 tab PO BID Qty: 60 2RF ibuprofen 600 mg tablet 600 mg PO Q8H PRN (Reason: pain) Qty: 30 0RF Breo Ellipta 200-25 mcg/dose blister with device 1 inh inhalation DAILY Qty: 60 3RF ketoconazole 2 % shampoo 1 appl topical 2XW Qty: 120 0RF losartan 100 mg tablet 100 mg PO DAILY Qty: 90 1RF prednisone 5 mg tablet 5 mg PO Q OTHER DAY Qty: 14 3RF (DME) FreeStyle Lite Strips Strip See Rx Instructions .ROUTE .COMPLEX Qty: 50 8RF Dose Instruction: DIRECTED Rx Instructions: DIRECTED tests 4X/day albuterol sulfate [Ventolin HFA] 90 mcg/actuation Hfa Aerosol Inhaler 4 puff inhalation Q3H PRN (Reason: Shortness Of Breath/Wheezing) Qty: 8.5 0RF (DME) Aeroneb Go Nebulizer Misc See Rx Instructions .Route Qty: 1 0RF Rx Instructions: As directed atenolol 50 mg tablet 100 mg PO DAILY Qty: 180 2RF meloxicam 15 mg tablet 15 mg PO DAILY Qty: 14 0RF cyclobenzaprine 10 mg tablet 10 mg PO BEDTIME Qty: 14 0RF melatonin 1 mg tablet 1 mg PO BEDTIME PRN (Reason: sleep) Qty: 30 0RF (DME) compress.stocking,knee,reg,lrg Misc See Rx Instructions .Route Qty: 12 1RF Rx Instructions: As directed 20-30 mm HG escitalopram oxalate 20 mg tablet 20 mg PO DAILY divalproex 500 mg tablet,delayed release (DR/EC) 500 mg PO BID clonazepam 1 mg tablet 1 mg PO BID PRN Referrals: Po,Cally Silveira MD [Primary Care Provider] -
[2022-04-23] MEDS: amLODIPine Besylate 10 MG TABLET PO (00:43)
[2022-04-23 00:53] LABS: Basophils Absolute Auto 0.1 X10*3/uL (0.0-0.2); Basophils Percent Auto 0.6 % (0-2); Eosinophils Absolute Auto 0.2 X10*3/uL (0.0-0.4); Eosinophils Percent Auto 1.9 % (0-4); Hematocrit 43.6 % (37.0-47.0); Hemoglobin 13.8 g/dl (12.0-16.0); Imm Gran Abs Auto 0.03 X10*3/uL (0.00-0.03); Imm Gran Pct Auto 0.3 % (0.0-0.4); Lymphocytes Absolute Auto 1.5 X10*3/uL (1.2-4.9); Lymphocytes Percent Auto 15.4 % (20-40); MANUAL DIFF FLAG NO; Mean Corpuscular HGB Conc 31.7 g/dl (31.0-35.0); Mean Corpuscular Hemoglobin 27.2 pg (27.0-33.0); Mean Corpuscular Volume 85.8 fL (80.0-98.0); Mean Platelet Volume 11.2 fL (9.4-12.3); Monocytes Absolute Auto 0.7 X10*3/uL (0.1-1.2); Monocytes Percent Auto 6.9 % (2-11); Neutrophils Absolute Auto 7.1 x10*3/uL (2.0-8.3); Neutrophils Percent Auto 74.9 % (45-73); Platelet Count 238 X10*3/uL (160-400); Red Blood Count 5.08 X10*6/uL (4.20-5.50); Red Cell Distribution Width 15.3 % (11.0-16.0); White Blood Count 9.5 X10*3/uL (4.8-10.8)
[2022-04-23 01:10] LABS: Alkaline Phosphatase 99 U/L (39-117); Anion Gap 16 (12-20); Aspartate Amino Transferase 17 U/L (5-31); Bilirubin Direct < 0.2 mg/dL (0.0-0.5); Bilirubin Total 0.3 mg/dL (0.0-1.0); Blood Urea Nitrogen 15 mg/dL (9-16); Calcium 9.6 mg/dL (8.4-10.2); Carbon Dioxide 27 mmol/L (22-29); Chloride 103 mmol/L (96-108); Creatinine Clr Calc Pharmacy 64.3; Estimated Glomerular Filt Rate 47; Glucose Random 164 mg/dL (60-115); Potassium 4.1 mmol/L (3.3-5.1); Sodium 142 mmol/L (135-145); Total Protein 6.8 g/dL (6.5-8.0)
[2022-04-23 01:14] LABS: B Type Natriuretic Peptide 178 pg/mL (<100); COVID-19 Test Negative (Negative); IDNOW Serial# 08D9AD1C; Troponin-I High Sensitivity 3.8 ng/L (<3.5-17.0)
[2022-04-23 01:17] LABS: Alanine Aminotransferase 31 U/L (0-31); Lipase 148 U/L (8-78)
[2022-04-23 02:10] VITALS: BP 159/67; PULSE 67; RESP 19; O2SAT 98
--- NOTE | 2022-04-23 02:13 | PC.NURSE ---
Pt a&o, denies an sob or chest pain. no n/v. blood pressure has improved after being medicated. Please is for pt to be discharged home.
--- NOTE | 2022-04-23 02:25 | PC.NURSE ---
Reviewed discharge instructions with pt. pt verbalized understanding. Education on Cardiac/Diabetic meals. Pt denies any distress upon discharge.
== END 2022-04-23 02:26 | disposition home or self-care (01) ==
PROVIDERS: Emergency Provider Emergency Medicine; PCP Internal Medicine
DX: M25.511 Pain in right shoulder (principal); M25.512 Pain in left shoulder; R06.02 Shortness of breath; I10 Essential (primary) hypertension; Z20.822 Contact with and (suspected) exposure to COVID-19; Z20.828 Contact with and (suspected) exposure to other viral communicable diseases; Z79.899 Other long term (current) drug therapy
CPT/HCPCS: 71045; 80048; 80076; 83690; 83880; 84484; 85025; 87635; 93005; 99284

== ENCOUNTER 2022-04-24 12:24 | Emergency (ER) | payer OTHER, SELFPAY ==
[2022-04-24 12:34] VITALS: BP 230/121; PULSE 79; RESP 20; TEMP 36.6; O2SAT 98; BMI 43.9
--- NOTE | 2022-04-24 12:35 | ED.GENADULT ---
HPI - General Adult General Chief complaint: General Medical Stated complaint: HBP Time Seen by Provider: 04/24/22 15:13 Source: patient Mode of arrival: ambulatory Limitations: no limitations History of Present Illness HPI narrative: Patient is a 51-year-old female who presents to emergency department for evaluation of hypertension. She states she is currently prescribed Atenolol and Losartan. Denies headcache, vision changes, neck pain, chest pain, shortness of breath, numbness or tingling. Was here 2 days ago, had work-up at that time. States that she called her PCP today and was give an appointment for the Middle of May. She was then referred to [facility], and was advised to come to the ED for medication regimen change by her report. Had work-up yesterday 04/23/22 without any abnormal findings or signs of end organ damage. She was given Amlodipine 10mg PO yesterday with good effect. Related Data Home Medications Medication Instructions Recorded Confirmed divalproex 500 mg tablet,delayed 500 mg PO BID 03/31/20 02/16/22 release escitalopram oxalate 20 mg tablet 20 mg PO DAILY 03/31/20 02/16/22 clonazepam 1 mg tablet 1 mg PO BID PRN 03/20/21 02/16/22 Previous Rx's Medication Instructions Recorded albuterol sulfate 90 mcg/actuation 4 puff inhalation Q3H PRN 12/21/20 aerosol inhaler (Ventolin HFA) Shortness Of Breath/Wheezing #8.5 grams nebulizers (Aeroneb Go Nebulizer) #1 ea 02/13/21 melatonin 1 mg tablet 1 mg PO BEDTIME PRN sleep #30 tabs 05/08/21 lancets 28 gauge (FreeStyle #100 ea 05/23/21 Lancets) blood-glucose meter (FreeStyle #1 ea 06/12/21 [place] Lite kit) compress.stocking,knee,reg,lrg #12 ea 10/25/21 fluticasone propionate 50 2 spray intranasal DAILY 90 days 10/30/21 mcg/actuation nasal #3 ea spray,suspension pen needle, diabetic 32 gauge x #50 ea 10/30/21/32 (BD Patti 2nd Gen Pen Needle) olopatadine 0.1 % eye drops 1 drp ophthalmic (eye) BID #5 mL 10/31/21 atenolol 50 mg tablet 100 mg PO DAILY #180 tabs 11/07/21 cholecalciferol (vitamin D3) 50 50 mcg PO DAILY #90 tabs 01/14/22 mcg (2,000 unit) tablet (Vitamin D3) fexofenadine 180 mg tablet 180 mg PO DAILY 90 days #90 tabs 01/14/22 atorvastatin 10 mg tablet 10 mg PO QPM #90 tabs 01/17/22 insulin degludec 100 unit/mL (3 22 unit (0.22 mL) subcut BEDTIME 01/17/22 mL) subcutaneous pen (Tresiba #15 mL FlexTouch U-100 insulin) acetaminophen 500 mg tablet 1,000 mg PO Q6H PRN pain #30 tabs 01/24/22 (Acetaminophen Extra Strength) empagliflozin 12.5 mg-metformin 1 tab PO BID #60 tabs 02/20/22 1,000 mg tablet (Synjardy) ibuprofen 600 mg tablet 600 mg PO Q8H PRN pain #30 tabs 02/20/22 cyclobenzaprine 10 mg tablet 10 mg PO BEDTIME #14 tabs 02/26/22 meloxicam 15 mg tablet 15 mg PO DAILY #14 tabs 02/26/22 Breo Ellipta 200 mcg-25 mcg/dose 1 inh inhalation DAILY #60 ea 03/06/22 powder for inhalation (fluticasone furoate-vilanterol) losartan 100 mg tablet 100 mg PO DAILY #90 tabs 03/22/22 prednisone 5 mg tablet 5 mg PO Q OTHER DAY #14 tabs 04/13/22 blood sugar diagnostic (FreeStyle #50 strips 04/17/22 Lite Strips) amlodipine 10 mg tablet 10 mg PO DAILY #30 tabs 04/24/22 amlodipine 5 mg tablet 5 mg PO DAILY #30 tabs 04/24/22 ipratropium bromide 0.02 % 2.5 ml inhalation Q6H PRN 04/24/22 solution for inhalation shortness of breath or wheezing 30 days #120 mL ketoconazole 2 % shampoo 1 appl topical 2XW #120 mL 04/24/22 Allergies Allergy/AdvReac Type Severity Reaction Status Date / Time egg Allergy Unknown throat Verified 04/24/22 12:40 swells up lisinopril Allergy Unknown Unknown Verified 04/24/22 12:40 metformin [METFORMIN] Allergy Unknown TACHYCARDIA Verified 04/24/22 12:40 AND DIARRHEA milk Allergy Unknown throat Verified 04/24/22 12:40 swells up pioglitazone AdvReac Unknown Swelling Verified 04/24/22 12:40 Review of Systems Review of Systems: Constitutional : No Weight loss, No Fever, No Chills ENT/Mouth :? No sore throat, No Rhinorrhea Eyes: No Eye Pain, No Swelling Cardiovascular : No Chest Pain, no SOB, no Dyspnea on Exertion, No Orthopnea, No Edema, No Palpitations Respiratory : No Cough, No Sputum Gastrointestinal : No Nausea, No Vomiting, No Diarrhea, No abdominal Pain, No Hematochezia, No Melena Genitourinary : No Dysuria, No Urinary Frequency Musculoskeletal : No joint pain, No Myalgias, No Joint Swelling Skin : No Skin Lesions, No rash Neuro : No Weakness, No Numbness, No Dizziness, No Headache Psych : No Anxiety/Panic, No Depression Heme/Lymph: No Bruising, No Lymphadenopathy Endocrine : No Polyuria, No Polydipsia Yes all other systems are reviewed and are negative PMFSH Past Medical History Attestation statement: The following information was validated with the patient. Source: old records reviewed Medical History Acute meniscal tear of right knee Anxiety and depression Bilateral carpal tunnel syndrome COVID-19 virus infection COVID-19 virus infection Diabetic nephropathy Diabetic nephropathy associated with type 2 diabetes mellitus Diabetic neuropathy associated with type 2 diabetes mellitus GERD (gastroesophageal reflux disease) History of acute respiratory distress syndrome (ARDS) Hypercholesterolemia Hypertension Hypoxemia Insomnia Lower extremity edema Obesity (BMI 30-39.9) Osteoarthritis Pneumonia Pneumonia due to severe acute respiratory syndrome coronavirus 2 (SARS-CoV-2) Post covid-19 condition, unspecified Psoriasis Respiratory failure with hypoxia Restrictive lung disease Right thyroid nodule Type 2 diabetes mellitus with hyperglycemia Surgical History History of section History of cholecystectomy History of D&C History of tubal ligation Family History Family History Father Medical history unknown Mother Diabetes Hypertension Maternal Grandmother Pancreatic cancer Maternal Aunt Breast cancer Sister Breast cancer Other Substance use disorder Social History Social History Household Members: Family Housing: Apartment Do you presently have visiting nurse or other home services: No Alcohol intake: never Patient Tobacco Use Status: Never used Tobacco e-Cigarette/Vaping Use: Never Used Second Hand Smoke Exposure: Yes Advance Directives: No Advance Directives Information Provided: Yes service: No Current occupational status: disabled Cognitive needs: No Hearing needs: No Vision needs: No Physical Exam ED Vital Signs: Vital Signs - 24 hr 04/24/22 12:34 04/24/22 14:20 Temperature 97.9 F Pulse Rate 79 67 Respiratory Rate 20 20 Blood Pressure 230/121 H 179/114 H Pulse Oximetry 98 96 Oxygen Delivery Method Room Air Room Air BMI result Body Mass Index 43.9 Appearance: Alert.?Oriented to person, place and time. No acute distress.?Normal affect. Eyes: Pupils equal, round and reactive to light.? ENT: Pharynx normal.?? Neck: Normal inspection.? Neck supple.?? CVS: Heart sounds normal. Normal heart rate and rhythm.? Pulses normal.?? Respiratory: No respiratory distress.? Lung sounds clear to auscultation bilaterally?? Abdomen: Soft and non-tender. Normoactive bowel sounds. ? Skin: Skin warm and dry.? Normal skin color.? Extremities: No lower extremity edema.? Neuro: Moves all extremities spontaneously. Sensation intact bilaterally. Ambulates with normal steady gait. Course Reevaluation(s) Reevaluation #1: Repeat BP 179/114 after oral amlodipine 10mg, patient had called her PCP office, Dr. Rizvi, has follow-up appointment scheduled 05/26/2022, she remains asymptomatic at this time. I have reached out to PCP office, have yet to receive a call back. Time: 14:20 Reevaluation #2: Prescription for amlodipine was sent to patient's pharmacy, as it is unclear whether prescription was in fact Center not. Patient advised to only take a single dosage of amlodipine, in the event that 2 prescriptions were sent to the pharmacy, do not suspect that pharmacy would fill both, but she is not to take more than 10 mg daily. She and her family member verbalized understanding of this. BP at this time 176/104. Stable for discharge. We reviewed worrisome signs and symptoms that warrant re-evaluation in the emergency department. Verbalizes understanding. Time: 15:34 Medications Administered Discontinued Medications Generic Name Dose Route Start Last Admin Trade Name Emelyn PRN Reason Stop Dose Admin Amlodipine Besylate 10 mg 04/24/22 12:42 04/24/22 13:10 Amlodipine Besylate 10 Mg Tablet PO 04/24/22 12:43 10 mg ONCE ONE Administration Protocol Medical Decision Making Medical Decision Making MDM Narrative: Patient is a 51-year-old female with past medical history of diabetes, hypertension, hyperlipidemia, obesity presents emergency department for evaluation of elevated blood pressure reading. Patient was seen in the emergency department yesterday 04/23/2022, for hypertension as well which improved after receiving amlodipine 10 mg orally. She had labs obtained at that time including CBC which is overall unremarkable, CMP overall unremarkable, troponin was 3.8, EKG revealing normal sinus rhythm without acute ischemic findings. She was discharged advised patient palpable primary provider. She states that she does not have an appointment scheduled for approximately 4 weeks and a blood pressure side use morning which prompted her return. Currently, she is asymptomatic, has no physical complaints. History of physical examination not consistent with signs of end-organ damage. Do not suspect ACS at this time given she is asymptomatic and had workup yesterday. Patient will receive amlodipine 10 mg orally, disposition will be pending results. Differential Diagnosis Differential Diagnoses: The differential diagnosis associated with the presentation includes (Essential hypertension, ACS, acute kidney injury) Consult Healthcare Provider Management of the patient was discussed with: Primary Care Provider (Dr. Rizvi) External Record Review External record reviewed: Outpatient record (Reviewed prior primary care records) Prescription Management I considered prescription management with: Other (Amlodipine) Chronic Conditions Patient?s care impacted by: Diabetes and Hypertension Discharge Plan Discharge Clinical Impression: Hypertension Patient Disposition: Home, Self-Care Instructions: Low-Sodium Diet (ED), Hypertension (ED) Additional Instructions: As discussed, a prescription for amlodipine 10 mg daily was sent to your pharmacy. Please follow-up with your primary care, Dr. Rizvi as scheduled. Consider purchasing a blood pressure of in the pharmacy so that you may keep track of her blood pressure readings at home. The should be taken after 10-15 minutes of rest, while sitting with legs on crossed, and relaxed, and approximately 2 hours after insert you have taking your medication. It is helpful to keep a log of your blood pressure readings at home to review with your primary care provider. You may return back to emergency department any new or worsening symptoms or concerns. This includes but is not limited to chest pain, shortness of breath, dizziness, lightheadedness, vision changes, neck pain, numbness or tingling of your extremities. Prescriptions: New amlodipine 10 mg tablet 10 mg PO DAILY Qty: 30 0RF No Action (DME) lancets [FreeStyle Lancets] 28 gauge misc See Rx Instructions topical TID Qty: 100 0RF Rx Instructions: As directed 3 times daily (DME) blood-glucose meter [FreeStyle [place] Lite] Kit See Rx Instructions .Route Qty: 1 0RF Rx Instructions: As directed (DME) pen needle, diabetic [BD Patti 2nd Gen Pen Needle] 32 gauge x 5/32 needle See Rx Instructions .Route Qty: 50 4RF Rx Instructions: once a day fluticasone propionate 50 mcg/actuation spray,suspension 2 spray intranasal DAILY 90 Days Qty: 3 3RF olopatadine 0.1 % drops 1 drp ophthalmic (eye) BID Qty: 5 12RF Rx Instructions: separate doses by at least 6-8 hours fexofenadine 180 mg tablet 180 mg PO DAILY 90 Days Qty: 90 1RF cholecalciferol (vitamin D3) [Vitamin D3] 50 mcg (2,000 unit) tablet 50 mcg PO DAILY Qty: 90 3RF atorvastatin 10 mg tablet 10 mg PO QPM Qty: 90 3RF insulin degludec [Tresiba FlexTouch U-100] 100 unit/mL (3 mL) insulin pen 22 unit subcut BEDTIME Qty: 15 4RF acetaminophen [Acetaminophen Extra Strength] 500 mg tablet 1,000 mg PO Q6H PRN (Reason: pain) Qty: 30 11RF Synjardy 12.5-1,000 mg tablet 1 tab PO BID Qty: 60 2RF ibuprofen 600 mg tablet 600 mg PO Q8H PRN (Reason: pain) Qty: 30 0RF Breo Ellipta 200-25 mcg/dose blister with device 1 inh inhalation DAILY Qty: 60 3RF losartan 100 mg tablet 100 mg PO DAILY Qty: 90 1RF prednisone 5 mg tablet 5 mg PO Q OTHER DAY Qty: 14 3RF (DME) FreeStyle Lite Strips Strip See Rx Instructions .ROUTE .COMPLEX Qty: 50 8RF Dose Instruction: DIRECTED Rx Instructions: DIRECTED tests 4X/day amlodipine 5 mg tablet 5 mg PO DAILY Qty: 30 3RF ipratropium bromide 0.02 % solution 2.5 ml inhalation Q6H PRN (Reason: shortness of breath or wheezing) 30 Days Qty: 120 3RF ketoconazole 2 % shampoo 1 appl topical 2XW Qty: 120 0RF albuterol sulfate [Ventolin HFA] 90 mcg/actuation Hfa Aerosol Inhaler 4 puff inhalation Q3H PRN (Reason: Shortness Of Breath/Wheezing) Qty: 8.5 0RF (DME) Aeroneb Go Nebulizer Misc See Rx Instructions .Route Qty: 1 0RF Rx Instructions: As directed atenolol 50 mg tablet 100 mg PO DAILY Qty: 180 2RF meloxicam 15 mg tablet 15 mg PO DAILY Qty: 14 0RF cyclobenzaprine 10 mg tablet 10 mg PO BEDTIME Qty: 14 0RF melatonin 1 mg tablet 1 mg PO BEDTIME PRN (Reason: sleep) Qty: 30 0RF (DME) compress.stocking,knee,reg,lrg Misc See Rx Instructions .Route Qty: 12 1RF Rx Instructions: As directed 20-30 mm HG escitalopram oxalate 20 mg tablet 20 mg PO DAILY divalproex 500 mg tablet,delayed release (DR/EC) 500 mg PO BID clonazepam 1 mg tablet 1 mg PO BID PRN Referrals: Dmitri,Cally Silveira MD [Primary Care Provider] -
[2022-04-24] MEDS: amLODIPine Besylate 10 MG TABLET PO (13:10)
[2022-04-24 14:20] VITALS: BP 179/114; PULSE 67; RESP 20; O2SAT 96
[2022-04-24 15:39] VITALS: BP 176/104; PULSE 64
== END 2022-04-24 15:44 | disposition home or self-care (01) ==
PROVIDERS: Emergency Provider Emergency Medicine; PCP Internal Medicine
DX: I16.1 Hypertensive emergency (principal); Z79.899 Other long term (current) drug therapy
CPT/HCPCS: 99283

== ENCOUNTER → 2022-05-16 10:04 | Outpatient (BNVA) | payer OTHER, SELFPAY | PROVIDERS: PCP Internal Medicine; Visit Provider Internal Medicine | DX: J98.4 Other disorders of lung (principal); J96.91 Respiratory failure, unspecified with hypoxia; U09.9 Post COVID-19 condition, unspecified; E66.01 Morbid (severe) obesity due to excess calories; Z68.41 Body mass index [BMI] 40.0-44.9, adult | CPT/HCPCS: 99212 ==

== ENCOUNTER → 2022-05-22 10:51 | Outpatient (REF) | payer OTHER, SELFPAY | LOC: HO.SL 10:51 | PROVIDERS: PCP Internal Medicine; Visit Provider Internal Medicine | DX: G47.10 Hypersomnia, unspecified (principal) | CPT/HCPCS: 95806 ==

== ENCOUNTER → 2022-05-23 09:08 | Outpatient (BNVA) | payer OTHER, SELFPAY | PROVIDERS: PCP Internal Medicine; Visit Provider Internal Medicine Endocrinology, Diabetes & Metabolism | DX: E11.65 Type 2 diabetes mellitus with hyperglycemia (principal); E04.2 Nontoxic multinodular goiter; Z79.4 Long term (current) use of insulin | CPT/HCPCS: 82947; 83036; 99212 ==

== ENCOUNTER 2022-06-01 10:29 | Outpatient (REF) | payer OTHER, SELFPAY ==
--- NOTE | ~2022-06-01 | CT_ITS ---
EXAMINATION: CT CHEST WITHOUT CONTRAST CLINICAL INFORMATION: Post COVID-19. Hypoxemia. COMPARISON: CT chest 06/22/2021. TECHNIQUE: Multidetector volumetric CT imaging of the chest was done. Axial MIP volume rendering provided. Sagittal and coronal reformatted images were obtained. This CT examination was performed using dose optimization techniques as appropriate, variously including the following: *Automated exposure control *Adjustment of mA and/or kV according to patient size (this includes techniques or standardized protocols for targeted exams where dose is matched to indication/reason for exam; i.e. extremities or head) *Use of iterative reconstruction technique DLP: 223 mGy-cm FINDINGS: BACON STRINGER: Well-inflated lungs with bilateral increased interstitial markings. LUNGS: The lungs are expanded with diffuse ground-glass attenuation seen throughout both lungs with reticular interstitial prominence left upper lobe and patchy consolidation left upper lobe posterior segment almost mass-like. It measures 3.0 x 2.0 cm. Previously seen air bronchograms and the anterior and posterior patchy consolidations have resolved. Patchy consolidation/atelectasis seen left lower lobe has significantly improved as well. Reticular interstitial changes are seen throughout both lungs most prominent in the left upper lobe. No new findings. There are no pulmonary nodules, mass or consolidation. MEDIASTINUM: The thyroid lobes are asymmetrical on the right slightly larger than left. The central trachea and the bronchi are widely patent. No abnormal-sized para-aortic lymph nodes seen. Heart size and the great vessels are normal caliber. There is no pericardial effusion. CORONARY ARTERY CALCIFICATION: None visualized on this study. PLEURA: There is no pleural effusion. No pleural mass or thickening. AXILLA: No lymphadenopathy. UPPER ABDOMEN: Visualized liver, spleen, pancreas and bilateral adrenal glands unremarkable. The gallbladder is out. OSSEOUS STRUCTURES: No aggressive lytic or sclerotic process seen. There is mild ventral spondylosis mid and lower dorsal spine. CT/CT chest wo IV con IMPRESSION: Interval improvement in the left upper lobe consolidation and in the anterior and posterior segments as well as left lower lobe. Mild ground-glass attenuation changes throughout the lungs are stable. Reticular interstitial changes in left upper lobe. Fleischner guidelines were followed.
== END 2022-06-01 10:30 | disposition home or self-care (01) ==
LOC: HO.CT 10:29
PROVIDERS: PCP Internal Medicine; Visit Provider Internal Medicine
DX: J98.4 Other disorders of lung (principal); R09.02 Hypoxemia; U09.9 Post COVID-19 condition, unspecified
CPT/HCPCS: 71250

== ENCOUNTER 2022-06-05 09:34 | Outpatient (REF) | payer OTHER, SELFPAY ==
--- NOTE | 2022-06-05 11:35 | PFT_ITS ---
Forced vital capacity 47%, FEV1 54%, FEV1/FVC ratio is 90. [id number] 84% and MVV 60%. Post bronchodilator therapy, there is no change. Total lung capacity 50% and residual volume 45%. Diffusion capacity 52%. DL/VA is 105. CONCLUSION: These findings are consistent with relatively severe restrictive pulmonary disorder. No obstructive airway disorder. Clinical correlation recommended. MD MALACHI Ang/MODL / [id number]
== END 2022-06-05 09:35 | disposition home or self-care (01) ==
LOC: HO.RESP 09:34
PROVIDERS: PCP Internal Medicine; Visit Provider Internal Medicine
DX: J98.4 Other disorders of lung (principal); U09.9 Post COVID-19 condition, unspecified; Z87.09 Personal history of other diseases of the respiratory system
CPT/HCPCS: 94060; 94727; 94729

== ENCOUNTER → 2022-06-21 08:44 | Outpatient (BNVA) | payer OTHER, SELFPAY | PROVIDERS: PCP Internal Medicine; Visit Provider Internal Medicine | DX: U09.9 Post COVID-19 condition, unspecified (principal); J98.4 Other disorders of lung; R09.02 Hypoxemia; E66.01 Morbid (severe) obesity due to excess calories; Z68.41 Body mass index [BMI] 40.0-44.9, adult | CPT/HCPCS: 99212 ==

== ENCOUNTER → 2022-07-16 08:03 | Outpatient (BNVA) | payer OTHER, SELFPAY | PROVIDERS: PCP Internal Medicine; Visit Provider Registered Nurse Diabetes Educator | DX: E11.65 Type 2 diabetes mellitus with hyperglycemia (principal) | CPT/HCPCS: 99211 ==

== ENCOUNTER → 2022-08-15 08:31 | Outpatient (BNVA) | payer OTHER, SELFPAY | PROVIDERS: PCP Internal Medicine; Visit Provider Internal Medicine Endocrinology, Diabetes & Metabolism | DX: E11.65 Type 2 diabetes mellitus with hyperglycemia (principal); E04.2 Nontoxic multinodular goiter; Z79.4 Long term (current) use of insulin | CPT/HCPCS: 82947; 83036; 99212 ==

== ENCOUNTER → 2022-09-13 13:45 | Outpatient (BNVA) | payer OTHER, SELFPAY | PROVIDERS: PCP Internal Medicine; Visit Provider Registered Nurse Diabetes Educator | DX: E11.65 Type 2 diabetes mellitus with hyperglycemia (principal); E11.21 Type 2 diabetes mellitus with diabetic nephropathy; E11.40 Type 2 diabetes mellitus with diabetic neuropathy, unspecified | CPT/HCPCS: 99211 ==

== ENCOUNTER 2022-09-19 09:41 | Outpatient (AMB) | payer OTHER, SELFPAY ==
--- NOTE | 2022-09-19 09:44 | A.OFFVIS_ITS ---
Intake Vital Signs 09/19/22 09:47 Height 5 ft 2 in Weight 233 lb 11.04 oz BMI 42.7 BP 150/92 H Blood Pressure Location Lt brachial Position Standing Pulse 87 Pulse Source Pulse Oximeter Pulse Oximetry (%) 96 Oxygen Delivery Method Nasal Cannula Oxygen Flow Rate 1 Intake Visit Reasons: COPD/o2 Recert Intake Note: pt is here for follow up and needs recertification for O2. She states she is feeling tired and always a headache. Pt does try to go without the oxygen but afte 15 minutes she is short of breath and heavy chest. Controls Technician Required: Yes Controls Technician Name: viktor Allergies egg Allergy (Unknown, Verified 09/19/22 09:53) throat swells up lisinopril Allergy (Unknown, Verified 09/19/22 09:53) Unknown metformin [METFORMIN] Allergy (Unknown, Verified 09/19/22 09:53) TACHYCARDIA AND DIARRHEA milk Allergy (Unknown, Verified 09/19/22 09:53) throat swells up pioglitazone Adverse Reaction (Unknown, Verified 09/19/22 09:53) Swelling Medication List - Last Reconciled 09/19/22 by Zoila Knutson MD acetaminophen (Acetaminophen Extra Strength) 1,000 mg (2 x 500 mg) PO Q6H PRN albuterol sulfate 90 mcg/actuation (Ventolin HFA) 4 puffs inhalation Q3H PRN amlodipine 5 mg PO DAILY atenolol 100 mg (2 x 50 mg) PO DAILY atorvastatin 10 mg PO QPM betamethasone dipropionate 0.05% topical blood pressure monitor (Blood Pressure Kit) As directed blood sugar diagnostic (FreeStyle Lite Strips) DIRECTED tests 4X/day blood-glucose meter (FreeStyle [place] Lite kit) As directed Breo Ellipta 200-25 mcg/dose (fluticasone furoate-vilanterol) 1 inh inhalation DAILY NS calcipotriene 0.005% topical BID PRN cholecalciferol (vitamin D3) (Vitamin D3) 50 mcg PO DAILY clonazepam 1 mg PO BID PRN compress.stocking,knee,reg,lrg As directed 20-30 mm HG cyclobenzaprine 10 mg PO BEDTIME divalproex 500 mg PO BID empagliflozin-metformin 12.5-1,000 mg (Synjardy) 1 tab PO BID escitalopram oxalate 20 mg PO DAILY fexofenadine 180 mg PO DAILY 90 days flash glucose scanning reader (Monsoon Commerce[employer] Jared 2 [place]) As directed changes every 14 days flash glucose sensor (FreeStyle Jared 2 Sensor kit) As directed change every 14 days fluticasone propionate 50 mcg/actuation 2 sprays intranasal DAILY 90 days ibuprofen 600 mg PO Q8H PRN insulin degludec (Tresiba FlexTouch U-100 insulin) 22 units (0.22 mL) subcut BEDTIME ipratropium bromide 2.5 mL inhalation Q6H PRN 30 days ketoconazole 2% 1 appl topical 2XW lancets (Monsoon CommerceStyle Lancets) As directed losartan 100 mg PO DAILY melatonin 1 mg PO BEDTIME PRN meloxicam 15 mg PO DAILY nebulizers ([employer] Go Nebulizer) As directed olopatadine 0.1% 1 drp ophthalmic (eye) BID pen needle, diabetic (BD Patti 2nd Gen Pen Needle) [place] quetiapine 100 mg PO BEDTIME Do you need a note to return to daycare/school/sports/work: No HPI COPD/o2 Recert HPI Details 51 YEARS OLD FEMALE, MORBIDLY OBESE, BUT GRADUALLY LOSING WEIGHT, THESE BEING FOLLOWED UP FOR POST COVID PNEUMONIA, RESIDUAL PULMONARY FIBROSIS, AND RESPIRATORY FAILURE. HER OXYGEN REQUIREMENT IS GRADUALLY DECREASING, NOW SHE IS USING ONLY 1 L/MINUTE, WITH ANY PHYSICAL ACTIVITY AND 2 L/MINUTE AT NIGHT. SHE HAS MILD. COUGH WITHOUT MUCH MUCUS PRODUCTION SHE DOES GET SHORT OF BREATH IF SHE WALKS AROUND, BUT DOES NOT HAVE MUCH WHEEZING. BECAUSE OF HER MORBID OBESITY SHE IS AT A HIGH RISK OF SLEEP APNEA, AT THIS TIME SHE IS USING O2 AT NIGHT. SHE DENIES ANY ISSUES WITH THE SLEEP. [facility] Medical History Acute meniscal tear of right knee Anxiety and depression Bilateral carpal tunnel syndrome COVID-19 virus infection COVID-19 virus infection Diabetic nephropathy Diabetic nephropathy associated with type 2 diabetes mellitus Diabetic neuropathy associated with type 2 diabetes mellitus GERD (gastroesophageal reflux disease) History of acute respiratory distress syndrome (ARDS) Hypercholesterolemia Hypertension Hypoxemia Insomnia Lower extremity edema Obesity (BMI 30-39.9) Osteoarthritis Pneumonia Pneumonia due to severe acute respiratory syndrome coronavirus 2 (SARS-CoV-2) Post covid-19 condition, unspecified Psoriasis Respiratory failure with hypoxia Restrictive lung disease Right thyroid nodule Type 2 diabetes mellitus with hyperglycemia Surgical History History of section History of cholecystectomy History of D&C History of tubal ligation Family History Father Medical history unknown Mother Diabetes Hypertension Maternal Grandmother Pancreatic cancer Maternal Aunt Breast cancer Sister Breast cancer Social History Household Members: Family Housing: Apartment Do you presently have visiting nurse or other home services: No Alcohol intake: never Patient Tobacco Use Status: Never used Tobacco e-Cigarette/Vaping Use: Never Used Second Hand Smoke Exposure: Yes service: No Current occupational status: disabled Cognitive needs: No Hearing needs: No Vision needs: No Review of Systems Const All systems reviewed & are unremarkable except as noted in HPI and below Eyes Reports no additional complaints ENT Reports no additional complaints Card Denies chest pain, Denies irregular heart rhythm and Denies leg edema Resp Reports as per HPI GI Reports no additional complaints Reports no additional complaints Musc Reports abnormal gait (WEAK AND SOMETIME HAS TO USE A CANE) and Reports back pain Skin/Breast Reports system reviewed and no additional complaints, except as documented Neuro Reports abnormal gait (WEAK AND SOMETIME HAS TO USE A CANE) Psych Reports no additional complaints Physical Exam Vital Signs: Last Vital Signs Pulse 87 09/19/22 09:47 BP 150/92 H 09/19/22 09:47 Pulse Ox 96 09/19/22 09:47 Oxygen Delivery Method Nasal Cannula 09/19/22 09:47 Oxygen Flow Rate 1 09/19/22 09:47 BMI result Body Mass Index 42.7 Const General: healthy appearing, comfortable, no acute distress, alert and awake Orientation/consciousness: patient oriented x3 HEENT Head: Yes normal to inspection General nose exam: No nasal polyps present and No nasal discharge present Face and sinus: Yes sinuses nontender Mouth: oropharynx normal Throat: Yes posterior oropharynx normal Eyes General: appearance normal, both eyes and all related structures Neck Neck: Yes normal visual inspection, Yes no lymphadenopathy, Yes trachea midline and Yes no JVD Thyroid: Thyroid normal Chest Chest palpation & inspection: normal inspection of the chest, normal palpation of entire chest wall and no tenderness Resp Other: PERCUSSION NOTE IS RESONANT, EXCEPT OVER THE BASILAR AREAS WHERE IT IS SOMEWHAT DIMINISHED DUE TO OBESITY .. BREATH SOUNDS ARE DECREASED OVER THE LOWER LOBES. NO DEFINITE CREPITATIONS OR WHEEZES ARE HEARD . Cardio Palpation: normal PMI Rate: regular rate Rhythm: regular rhythm Heart sounds: no gallops and no murmurs Peripheral pulses: Peripheral pulses 2+ throughout GI Palpation (GI): Soft to palpation, nontender, No hepatosplenomegaly present, no masses and Other GI palpation findings present (ABDOMEN IS MODERATELY OBESE) Auscultation: normal bowel sounds Back/Spine/Pelvis Thoracic/Lumbar Spine: thoracic and lumbar spine normal to inspection and thoraco-lumbar ROM limited Skin General skin exam: no rashes or lesions noted Neuro General: patient oriented x3, No gait normal (IMPAIRED DUE TO WEAKNESS OF THE LOWER EXTREMITIES, WHEELCHAIR TO WALKER.) and no focal motor deficits Cranial nerves: Yes CN's II-XII intact bilaterally Extrem General: Yes normal to inspection, Yes no clubbing, cyanosis or edema and Yes no calf tenderness Psych Appearance: grossly normal and well kempt Speech and movement: Normal speech and movement present Office Procedures 6 Minute Walk Time:: 10:10 SPO2 % at rest: 95 Pulse at rest: 82 SPO2 % during excercise: 87 Pulse during excercise: 100 SPO2 % after excercise: 93 Pulse after excercise: 97 Distance in yards walked: 60 Trevor Score: 1 Performance Observations:: Patient was able to walk on level ground for approx 50 yards before drop in O2 sat to 87. Added 1L of O2 via nasal cannula. Does become short of breath with exertion. [id number] - 6 Minute Walk Results Reviewed Results Reviewed: 6 MINUTES WALK TEST ON ROOM AIR . PATIENT DID DESATURATE TO 87% AFTER WALKING ABOUT 48 YD. O2 SAT MAINTAINED ABOVE 90% WITH 1 L/MINUTE Assessment & Plan Assessment & Plan (1) History of acute respiratory distress syndrome (ARDS): Comment: SHE HAD COVID PNEUMONIA WITH SEVERE ARDS. STILL HAS SIGNIFICANT RESIDUAL INTERSTITIAL LUNG DISEASE, ESPECIALLY OVER THE BASILAR AREAS. SLOWLY IMPROVING. Code(s): Z87.09 - Personal history of other diseases of the respiratory system (2) Post covid-19 condition, unspecified: Comment: PATIENT CONTINUES TO HAVE, RESIDUAL INTERSTITIAL LUNG DISEASE, POST COVID. WITH SIGNIFICANT RESPIRATORY INSUFFICIENCY, AND REQUIRING O2 SUPPLEMENTATION. LAST CT SCAN OF THE CHEST SHOWS CONTINUED RESOLUTION OF THE INTERSTITIAL DISEASE IN THE LOWER LOBES . NOW SHE HAS ONLY MINIMAL FIBROTIC STRANDS OVER THE BASES . Code(s): U09.9 - Post COVID-19 condition, unspecified (3) Restrictive lung disease: Comment: CONFIRMED BY COMPLETE PFT SHE DOES HAVE SEVERE RESTRICTIVE PULMONARY DISORDER, TX: STRESSED THAT SHE SHOULD DO DEEP BREATHING EXERCISES EVERY 2 HOURS REGULARLY. Code(s): J98.4 - Other disorders of lung (4) Respiratory failure with hypoxia: Comment: POST COVID RELATED ARDS. HER O2 REQUIREMENT HAS IMPROVED SIGNIFICANTLY, NOW DOING OKAY AT 1 L/MINUTE. 6 MINUTES WALK TEST : CONFIRMS THAT SHE NEEDS O2, SUPPLEMENTATION WHEN WALKING. SHE WOULD ALSO CONTINUE TO USE O2 1 L/MINUTE AT NIGHT, Code(s): J96.91 - Respiratory failure, unspecified with hypoxia (5) Obesity: Comment: SHE IS MORBIDLY OBESE. HAS LOST SOME WEIGHT NEEDS TO LOSE MORE WEIGHT. DIETARY INSTRUCTIONS REPEATED. IT IS DIFFICULT FOR HER TO DO ANY EXERCISE. Code(s): E66.9 - Obesity, unspecified Qualifiers: Obesity type: due to excess calories Obesity classification: adult class 3 (BMI >= 40) Serious obesity comorbidity presence: with serious comorbidity Body mass index: BMI 40.0-44.9 Qualified Code(s): E66.01 - Morbid (severe) obesity due to excess calories; Z68.41 - Body mass index [BMI]40.0- 44.9, adult Orders: Orders AMB 6 minute walk Today J98.4 - Other disorders of lung, R09.02 - Hypoxemia Coding Level of Care Code Est Pt Level 4 (64937) Diagnoses History of acute respiratory distress syndrome (ARDS) Z87.09 Post covid-19 condition, unspecified U09.9 Restrictive lung disease J98.4 Respiratory failure with hypoxia J96.91 Obesity E66.01; Z68.41 Obesity type: due to excess calories Obesity classification: adult class 3 (BMI >= 40) Serious obesity comorbidity presence: with serious comorbidity Body mass index: BMI 40.0-44.9 CPT Codes Coding ([id number])
[2022-09-19 09:47] VITALS: BP 150/92; PULSE 87; O2SAT 96; BMI 42.7
[2022-09-19 10:24] VITALS: PULSE 82; O2SAT 95
== END 2022-09-19 10:31 | disposition home or self-care (01) ==
PROVIDERS: PCP Internal Medicine; Visit Provider Internal Medicine
DX: J96.91 Respiratory failure, unspecified with hypoxia (principal); J98.4 Other disorders of lung; Z87.09 Personal history of other diseases of the respiratory system; U09.9 Post COVID-19 condition, unspecified; E66.01 Morbid (severe) obesity due to excess calories; Z68.41 Body mass index [BMI] 40.0-44.9, adult
CPT/HCPCS: 94618; 99214

== ENCOUNTER → 2022-09-19 09:41 | Outpatient (BNVA) | payer OTHER, SELFPAY | PROVIDERS: PCP Internal Medicine; Visit Provider Internal Medicine | DX: E66.01 Morbid (severe) obesity due to excess calories (principal); Z68.41 Body mass index [BMI] 40.0-44.9, adult | CPT/HCPCS: 94618; 99212 ==

== ENCOUNTER 2022-10-15 11:41 | Outpatient (REF) | payer OTHER, SELFPAY | END 2022-10-15 11:42 | disposition home or self-care (01) | LOC: HO.MS 11:41 | PROVIDERS: PCP Internal Medicine; Visit Provider Ophthalmology | DX: D23.122 Other benign neoplasm of skin of left lower eyelid, including canthus (principal); Z53.9 Procedure and treatment not carried out, unspecified reason ==

== ENCOUNTER 2022-10-16 14:51 | Outpatient (AMB) | payer OTHER, SELFPAY ==
[2022-10-16 14:56] VITALS: BP 144/88; PULSE 82; O2SAT 98; BMI 41.9
--- NOTE | 2022-10-16 14:56 | MHC.PC.OV ---
Vital Signs 10/16/22 14:56 10/16/22 15:21 Height 5 ft 2 in Weight 229 lb BMI 41.9 BP 144/88 H 130/80 Blood Pressure Location Lt brachial Lt brachial Position Sitting Sitting Pulse 82 Pulse Source Pulse Oximeter Pulse Oximetry (%) 98 Oxygen Delivery Method Room Air Intake Visit Reasons: High Blood Pressure Allergies egg Allergy (Unknown, Verified 10/16/22 14:56) throat swells up lisinopril Allergy (Unknown, Verified 10/16/22 14:56) Unknown metformin [METFORMIN] Allergy (Unknown, Verified 10/16/22 14:56) TACHYCARDIA AND DIARRHEA milk Allergy (Unknown, Verified 10/16/22 14:56) throat swells up pioglitazone Adverse Reaction (Unknown, Verified 10/16/22 14:56) Swelling Tobacco use date assessed: 05/23/22 Dental Screening Dental Screen Date: 10/16/22 Did you have a dental visit in the last 12 months?: Yes Did you have a dental problem in the last 6 months where you did not have access to dental care?: No Was dental information given to patient?: Patient has dentist HPI High Blood Pressure HPI Details 52-year-old obese female with uncontrolled diabetes mellitus hypertension GERD generalized anxiety disorder and hypercholesterolemia last seen in August 2022 blood work was requested.. Patient was supposed to have an eye procedure but noted to have an elevated blood pressure patient sent here. As for post COVID shortness of breath continues to follow with Pulmonary advised to exercise with breathing. Patient states that she has been taking the blood pressure at home and it has been controlled. Presently the blood pressure is good and advised to go back to the 5 mg of but monitor the blood pressure. Keep me updated with blood pressure. If she is getting high blood pressure then will increase the amlodipine to 10 mg once a day. Patient also complains of some rash that develops in the left arm because it is exposed to the sun and she also has a rash on the right side of the neck. This looks more like eczema. Patient also stated that she has been prescribed by the electrician machine [employer] and has been losing weight. In she does show 20 lb weight loss. [facility] Medical History (Updated 10/16/22 @ 15:24 by Cally Rizvi MD) Acute meniscal tear of right knee Acute neck sprain Anxiety and depression Bilateral carpal tunnel syndrome COVID-19 virus infection COVID-19 virus infection Diabetic nephropathy Diabetic nephropathy associated with type 2 diabetes mellitus Diabetic neuropathy associated with type 2 diabetes mellitus Eczema GERD (gastroesophageal reflux disease) History of acute respiratory distress syndrome (ARDS) Hypercholesterolemia Hypersomnia Hypertension Hypoxemia Insomnia Lower extremity edema Obesity (BMI 30-39.9) Osteoarthritis Pneumonia Pneumonia due to severe acute respiratory syndrome coronavirus 2 (SARS-CoV-2) Post covid-19 condition, unspecified Psoriasis Respiratory failure with hypoxia Restrictive lung disease Right thyroid nodule Type 2 diabetes mellitus with hyperglycemia Surgical History History of section History of cholecystectomy History of D&C History of tubal ligation Family History Father Medical history unknown Mother Diabetes Hypertension Maternal Grandmother Pancreatic cancer Maternal Aunt Breast cancer Sister Breast cancer Social History Household Members: Family Housing: Apartment Do you presently have visiting nurse or other home services: No Alcohol intake: never Patient Tobacco Use Status: Never used Tobacco e-Cigarette/Vaping Use: Never Used Second Hand Smoke Exposure: Yes service: No Current occupational status: disabled Cognitive needs: No Hearing needs: No Vision needs: No Questionnaire PHQ-9 Over the last 2 weeks, how often have you been bothered by any of the following problems? 1. Little interest or pleasure in doing things: several days 2. Feeling down, depressed, or hopeless: several days 3. Trouble falling or staying asleep, or sleeping too much: several days 4. Feeling tired or having little energy: several days 5. Poor appetite or overeating: several days 6. Feeling bad about yourself - or that you are a failure or have let yourself or your family down: several days 7. Trouble concentrating on things, such as reading the newspaper or watching television: not at all 8. Moving or speaking so slowly that other people could have noticed. Or the opposite - being so fidgety or restless that you have been moving around a lot more than usual: not at all 9. Thoughts that you would be better off or of hurting yourself in some way: not at all Total score: 6 Depression Screening Interpretation: Negative Source: Developed by Drs. Delvin Head, Ashley Rahman, Vinod Manzanares and colleagues, with an educational jo-ann from [employer]. Thrive Questionnaire Date Thrive assessed: 05/23/22 AUDIT C Alcohol Use Questionnaire (AUDIT-C) 1. How often do you have a drink containing alcohol?: Never 3. How often do you have six or more drinks on one occasion?: Never Total Score: 0 NANCY-7 AMB Questionnaire NANCY-7 Date NANCY - 7 assessed: 05/23/22 Source: Developed by Drs. Delvin Head, Ashley Rahman, Vinod Manzanares and colleagues, with an educational jo-ann from [employer]. Physical exam (Primary Care) Vital Signs: Last Vital Signs Pulse 82 10/16/22 14:56 BP 144/88 H 10/16/22 14:56 Pulse Ox 98 10/16/22 14:56 Oxygen Delivery Method Room Air 10/16/22 14:56 Care Plan Goal for BP management: Scaly hyper pigmented lesions on the left arm 1 cm multiple and also has a bigger rash on right side of the neck 3 x 2 cm BMI result Body Mass Index 41.9 Tobacco/Smoking Status: Tobacco use Status Tobacco use date assessed 05/23/22 10/16/22 14:57 Patient Tobacco Use Status Never used Tobacco 10/16/22 14:57 e-Cigarette/Vaping Use Never Used 10/16/22 14:57 PHQ-9: PHQ-9 Score PHQ-9: Total score 6 10/16/22 15:13 Depression Screening Interpretation: Negative Thrive Assessment: Date of Thrive Assessment Date Thrive assessed 05/23/22 10/16/22 14:57 Const General: alert; No acute distress Eyes Conjunctivae: conjunctivae normal Resp Auscultation: clear to auscultation bilaterally Cardio Rate: regular rate Rhythm: regular rhythm GI Inspection: Yes normal to inspection Extrem General: Yes normal to inspection and No edema Assessment and Plan Assessment & Plan (1) Obesity: Code(s): E66.9 - Obesity, unspecified Plan: Diet and exercise (2) Post covid-19 condition, unspecified: Comment: PATIENT CONTINUES TO HAVE, RESIDUAL INTERSTITIAL LUNG DISEASE, POST COVID. WITH SIGNIFICANT RESPIRATORY INSUFFICIENCY, AND REQUIRING O2 SUPPLEMENTATION. LAST CT SCAN OF THE CHEST SHOWS CONTINUED RESOLUTION OF THE INTERSTITIAL DISEASE IN THE LOWER LOBES . NOW SHE HAS ONLY MINIMAL FIBROTIC STRANDS OVER THE BASES . Code(s): U09.9 - Post COVID-19 condition, unspecified Plan: Continue to follow-up with Pulmonary (3) Hypertension: Code(s): I10 - Essential (primary) hypertension Plan: Continue with blood pressure medication. Decrease salt intake and exercise patient takes amlodipine 5 mg once a day atenolol 100 mg once a day losartan 100 mg once a day. Patient admits taking an extra 5 mg of amlodipine. Present BP is good right now 130/80 (4) Type 2 diabetes mellitus with hyperglycemia: Comment: Dr. Turner Code(s): E11.65 - Type 2 diabetes mellitus with hyperglycemia Plan: Decrease the amount of carbohydrate intake, pasta, bread, rice and potatoes are all sugar and that is aside from all the sweet stuff, remember that fruits are good but they are Sweet also. (5) Eczema: Code(s): L30.9 - Dermatitis, unspecified Medications: New triamcinolone acetonide 0.5% 1 appl topical DAILY 14 days 15 grams 0RF L30.9 - Dermatitis, unspecified Discontinued meloxicam Discontinued Reason: Ancillary Entered New Order 15 mg PO DAILY 14 tabs 0RF ibuprofen Discontinued Reason: Doctor's Order 600 mg PO Q8H PRN 30 tabs 0RF pain M25.511 - Pain in right shoulder Coding Level of Care Code Est Pt Level 4 (20926) Diagnoses Obesity E66.9 Post covid-19 condition, unspecified U09.9 Hypertension I10 Type 2 diabetes mellitus with hyperglycemia E11.65 Eczema L30.9
[2022-10-16 15:21] VITALS: BP 130/80
== END 2022-10-16 15:27 | disposition home or self-care (01) ==
LOC: HO.HMGH 14:51
PROVIDERS: PCP Internal Medicine; Visit Provider Internal Medicine
DX: I10 Essential (primary) hypertension (principal); E11.65 Type 2 diabetes mellitus with hyperglycemia; E66.9 Obesity, unspecified; Z68.41 Body mass index [BMI] 40.0-44.9, adult; U09.9 Post COVID-19 condition, unspecified; L30.9 Dermatitis, unspecified
CPT/HCPCS: 99214

== ENCOUNTER 2022-12-12 10:17 | Outpatient (REF) | payer OTHER, SELFPAY ==
[2022-12-12 10:41] LABS: MANUAL DIFF FLAG NO
[2022-12-12 11:42] LABS: Basophils Absolute Auto 0.1 X10*3/uL (0.0-0.2); Basophils Percent Auto 0.9 % (0-2); Eosinophils Absolute Auto 0.1 X10*3/uL (0.0-0.4); Eosinophils Percent Auto 1.3 % (0-4); Hemoglobin 13.9 g/dl (12.0-16.0); Imm Gran Abs Auto 0.04 X10*3/uL (0.00-0.03); Imm Gran Pct Auto 0.4 % (0.0-0.4); Lymphocytes Absolute Auto 1.2 X10*3/uL (1.2-4.9); Lymphocytes Percent Auto 12.6 % (20-40); Mean Corpuscular HGB Conc 31.6 g/dl (31.0-35.0); Mean Corpuscular Hemoglobin 27.1 pg (27.0-33.0); Mean Corpuscular Volume 85.8 fL (80.0-98.0); Mean Platelet Volume 11.7 fL (9.4-12.3); Monocytes Absolute Auto 0.6 X10*3/uL (0.1-1.2); Monocytes Percent Auto 6.6 % (2-11); Neutrophils Absolute Auto 7.3 x10*3/uL (2.0-8.3); Neutrophils Percent Auto 78.2 % (45-73); Platelet Count 278 X10*3/uL (160-400); Red Blood Count 5.13 X10*6/uL (4.20-5.50); Red Cell Distribution Width 14.7 % (11.0-16.0); White Blood Count 9.3 X10*3/uL (4.8-10.8)
[2022-12-12 12:26] LABS: Alanine Aminotransferase 27 U/L (0-31); Albumin Level 4.2 g/dL (3.5-5.0); Alkaline Phosphatase 110 U/L (39-117); Anion Gap 14 (12-20); Aspartate Amino Transferase 17 U/L (5-31); Bilirubin Total 0.5 mg/dL (0.0-1.0); Blood Urea Nitrogen 12 mg/dL (9-16); Calcium 10.2 mg/dL (8.4-10.2); Carbon Dioxide 27 mmol/L (22-29); Chloride 103 mmol/L (96-108); Cholesterol 175 mg/dL (<200); Estimated Glomerular Filt Rate 50; Glucose Random 104 mg/dL (60-115); HDL Cholesterol 49 mg/dL (>40); LDL Cholesterol Calculated 100 mg/dL (<100); Potassium 4.1 mmol/L (3.3-5.1); Sodium 140 mmol/L (135-145); Total Protein 7.7 g/dL (6.5-8.0); Triglycerides 130 mg/dL (<150)
[2022-12-12 12:28] LABS: Creatinine Urine 91.45 mg/dL; Microalbum/Creatinine Ratio Ur 251.5 ug/mg cr (<30)
[2022-12-12 12:29] LABS: Free T4 (Free Thyroxine) 1.05 ng/dL (0.71-1.85); Thyroid Stimulating Hormone 0.84 uIU/mL (0.32-4.0); Vitamin D 25-OH Total 60.7 ng/mL (>30)
[2022-12-12 12:55] LABS: Vitamin B12 497 pg/mL (200-900)
== END 2022-12-12 10:18 | disposition home or self-care (01) ==
LOC: HO.LAB 10:17
PROVIDERS: PCP Internal Medicine; Visit Provider Internal Medicine
DX: E11.65 Type 2 diabetes mellitus with hyperglycemia (principal); E78.00 Pure hypercholesterolemia, unspecified; E55.9 Vitamin D deficiency, unspecified
CPT/HCPCS: 36415; 80053; 80061; 82043; 82306; 82570; 82607; 82746; 84439; 84443; 85025

== ENCOUNTER 2022-12-18 08:13 | Outpatient (AMB) | payer OTHER, SELFPAY ==
--- NOTE | 2022-12-18 08:14 | MHC.OFFVIS ---
Intake Vital Signs 12/18/22 08:18 Weight 228 lb BP 152/88 H Blood Pressure Location Lt brachial Position Sitting Pulse 71 Pulse Source Pulse Oximeter Intake Visit Reasons: T2DM, appt confirmed Intake Note: Patient present today to follow up on Type 2 Diabetes Mellitus. 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 Name: [facility] medical staff Information Interpreted: non-clinical & clinical Accompanied by: Self / Same As Patient Allergies egg Allergy (Unknown, Verified 12/18/22 08:21) throat swells up lisinopril Allergy (Unknown, Verified 12/18/22 08:21) Unknown metformin [METFORMIN] Allergy (Unknown, Verified 12/18/22 08:21) TACHYCARDIA AND DIARRHEA milk Allergy (Unknown, Verified 12/18/22 08:21) throat swells up pioglitazone Adverse Reaction (Unknown, Verified 12/18/22 08:21) Swelling Medication List - Last Reconciled 12/18/22 by Delvin Mas MD acetaminophen (Acetaminophen Extra Strength) 1,000 mg (2 x 500 mg) PO Q6H PRN albuterol sulfate 90 mcg/actuation (Ventolin HFA) 4 puffs inhalation Q3H PRN amlodipine 5 mg PO DAILY atenolol 100 mg PO DAILY atorvastatin 10 mg PO QPM betamethasone dipropionate 0.05% topical blood pressure monitor (Blood Pressure Kit) As directed blood sugar diagnostic (FreeStyle Lite Strips) DIRECTED TESTS 4X/DAY blood-glucose meter (FreeStyle [place] Lite kit) As directed Breo Ellipta 200-25 mcg/dose (fluticasone furoate-vilanterol) 1 inh inhalation DAILY NS calcipotriene 0.005% topical BID PRN cholecalciferol (vitamin D3) (Vitamin D3) 50 mcg PO DAILY clonazepam 1 mg PO BID PRN compress.stocking,knee,reg,lrg As directed 20-30 mm HG cyclobenzaprine 10 mg PO BEDTIME disposable gloves As directed divalproex 500 mg PO BID empagliflozin-metformin 12.5-1,000 mg (Synjardy) 1 tab PO BID escitalopram oxalate 20 mg PO DAILY fexofenadine 180 mg PO DAILY 90 days flash glucose scanning reader (FreeStyle Jared 2 [place]) As directed changes every 14 days flash glucose sensor (FreeStyle Jared 2 Sensor kit) As directed change every 14 days fluticasone propionate 50 mcg/actuation 2 sprays intranasal DAILY 90 days [incontinence wipes As directed] insulin degludec (Tresiba FlexTouch U-100 insulin) 22 units (0.22 mL) subcut BEDTIME ipratropium bromide 2.5 mL inhalation Q6H PRN 30 days ketoconazole 2% 1 appl topical 2XW lancets (FreeStyle Lancets) As directed losartan TOME DILMA TABLETA POR VIA ORAL A DIARIO melatonin 1 mg PO BEDTIME PRN nebulizers (Aeroneb Go Nebulizer) As directed olopatadine 0.1% 1 drp ophthalmic (eye) BID pen needle, diabetic (BD Patti 2nd Gen Pen Needle) [place] quetiapine 100 mg PO BEDTIME [sanitary pads As directed] triamcinolone acetonide 0.5% 1 appl topical DAILY 14 days HPI HPI Comments History of Present Illness Details 52 yo female today for fup visit, for diabetes management and thyroid nodules Currently on Synjardy ER 12.5 /1000 mg once a day. and Tresiba 22 units Unfortunately, patient did not bring glucometer or log book to follow-up visit. 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 Afirma was negative. She denies cold or heat intolerance, she gained 5 lb since last visit. She denies constipation, insomnia, fatigue, dry skin, denies dysphagia, dyspnea, dysphonia, tremors, palpitations, irritability, anxiety. She denies nocturia, polyuria polydipsia numbness and tingling. Family History: She denies family history of thyroid disease. She has DM type 2 diagnosed 2013. She Was on Trulicity 0.75 mg last visit, I stopped due to ? history of pancreatitis, on Tradjenta, has elevated Lipase and Amylase. Other PMH is HTN, CKD 3, obesity . Patient states she had an episode of Pancreatitis in 2011, she had a lipase level of 308 U/L 09/04/11. No images . Complications:no retinopathy, + nephropathy, neuropathy, CVA, CAD, PVD. Last ophthalmology evaluation: 2 wks ago , denies retinopathy. Date of Service: 09/21/20 US THYROID Right Thyroid Lobe: 5.1 x 2.4 x 2.4 cm, volume 15.3 mL. Previously 4.9 x 2.3 x 2.2 cm, volume 13.0 mL. Parenchyma: The gland echotexture is homogeneous. Thyroid vascularity is normal. Left Thyroid Lobe: 3.8 x 1.3 x 1.8 cm, volume 4.7 mL. Previously 4.1 x 1.2 x 1.7 cm, volume 4.4 mL. Parenchyma: The gland echotexture is homogeneous. Thyroid vascularity is normal. Isthmus: 0.6 cm in maximum AP dimension. Previously 0.5 cm. Estimated total number of nodules greater than or equal to 1 cm: 1. Bellows Assembler nodules are described as follows: 1. Location: Right mid pole. Size: 1.9 x 1.5 x 1.7 cm, volume 2.53 mL. Previously: 1.9 x 1.6 x 1.8 cm, volume 2.86 mL. Nodule characteristics: Composition: Mixed cystic and solid (1). Echogenicity: Hypoechoic (2). Shape: Not taller than wide (0). Margins: Smooth (0). Echogenic Foci: None (0). ACR TI-RADS total points: 3 ACR TI-RADS category: 3 Significant change in size (>/= 20% in 2 dimensions and minimal increase of 2 mm or 50% or greater increase in volume): No Change in features: No Change in ACR TI-RADS risk category: n/a 2. Location: Left upper pole. Size: 0.4 x 0.3 x 0.3 cm, volume 0.02 mL. Previously: 0.5 x 0.3 x 0.5 cm, volume 0.04 mL. Nodule characteristics: Composition: Solid (2). Echogenicity: Hypoechoic (2). Shape: Not taller than wide (0). Margins: Smooth (0). Echogenic Foci: None (0). ACR TI-RADS total points: 4 ACR TI-RADS category: 4 Significant change in size (>/= 20% in 2 dimensions and minimal increase of 2 mm or 50% or greater increase in volume): No Change in features: No Change in ACR TI-RADS risk category: n/a 3. Location: Left mid pole. Size: 0.5 x 0.3 x 0.4 cm, volume 0.03 mL. Previously: 0.4 x 0.3 x 0.4 cm, volume 0.02 mL. Nodule characteristics: Composition: Cystic(0). ACR TI-RADS total points: 0 ACR TI-RADS category: 1 Significant change in size (>/= 20% in 2 dimensions and minimal increase of 2 mm or 50% or greater increase in volume): No Change in features: No Change in ACR TI-RADS risk category: n/a NODES: No lymphadenopathy is seen in the tissue surrounding the thyroid gland.Laboratory Tests 08/09/20 11:01 Hgb A1c (Clinic) 6.7 H Laboratory Tests 01/16/19 04/29/19 04/29/19 08:44 10:10 10:10 Hgb Hct Sodium Potassium BUN Creatinine Est GFR (Non-Af Am er) Fasting Glucose Hgb A1c (Clinic) Hgb A1c Fingerstic k 6.4 Calcium AST ALT Alkaline Phosphata se Total Protein Albumin Triglycerides Cholesterol LDL Cholesterol, C alc HDL Cholesterol Vitamin B12 25-OH Vitamin D To eri Free T4 0.90 Thyroxine (T4) TSH 3rd Generation Ur Random Creatini ne Ur Random Microalb umin Microalb/Creat Rat io Thyroglobulin Anti body <1 Thyroid Peroxidase Ab 2 10/21/19 10/21/19 10/21/19 08:20 08:25 08:25 Hgb Hct Sodium 138 Potassium 3.8 BUN 11 Creatinine 1.19 Est GFR (Non-Af Am er) 48 Fasting Glucose 123 H Hgb A1c (Clinic) Hgb A1c Fingerstic k Calcium 9.1 AST 13 ALT 18 Alkaline Phosphata se 106 Total Protein 7.2 Albumin 4.1 Triglycerides 94 D Cholesterol 152 LDL Cholesterol, C alc 92 HDL Cholesterol 42 Vitamin B12 432 25-OH Vitamin D To eri 45.2 Free T4 Thyroxine (T4) 7.7 TSH 3rd Generation 1.88 Ur Random Creatini ne 155.48 Ur Random Microalb umin 89.0 Microalb/Creat Rat io 57.2 Thyroglobulin Anti body Thyroid Peroxidase Ab 10/21/19 02/02/20 08:25 09:44 Hgb 13.2 Hct 41.8 Sodium Potassium BUN Creatinine Est GFR (Non-Af Am er) Fasting Glucose Hgb A1c (Clinic) 6.4 H Hgb A1c Fingerstic k Calcium AST ALT Alkaline Phosphata se Total Protein Albumin Triglycerides Cholesterol LDL Cholesterol, C alc HDL Cholesterol Vitamin B12 25-OH Vitamin D To eri Free T4 Thyroxine (T4) TSH 3rd Generation Ur Random Creatini ne Ur Random Microalb umin Microalb/Creat Rat io Thyroglobulin Anti body Thyroid Peroxidase Ab PFSH Medical History (Updated 10/16/22 @ 15:24 by Cally Rizvi MD) Hypersomnia Acute neck sprain Eczema Hypoxemia History of acute respiratory distress syndrome (ARDS) Post covid-19 condition, unspecified Restrictive lung disease Respiratory failure with hypoxia Pneumonia due to severe acute respiratory syndrome coronavirus 2 (SARS-CoV-2) COVID-19 virus infection Lower extremity edema Pneumonia COVID-19 virus infection Diabetic nephropathy associated with type 2 diabetes mellitus Diabetic neuropathy associated with type 2 diabetes mellitus Acute meniscal tear of right knee Right thyroid nodule Psoriasis Hypertension Type 2 diabetes mellitus with hyperglycemia Hypercholesterolemia Osteoarthritis Insomnia GERD (gastroesophageal reflux disease) Obesity (BMI 30-39.9) Diabetic nephropathy Bilateral carpal tunnel syndrome Anxiety and depression Surgical History History of D&C History of cholecystectomy History of section History of tubal ligation Family History Father Medical history unknown Mother Diabetes Hypertension Maternal Grandmother Pancreatic cancer Maternal Aunt Breast cancer Sister Breast cancer Social History Household Members: Family Housing: Apartment Do you presently have visiting nurse or other home services: No Alcohol intake: never Patient Tobacco Use Status: Never used Tobacco e-Cigarette/Vaping Use: Never Used Second Hand Smoke Exposure: Yes service: No Current occupational status: disabled Cognitive needs: No Hearing needs: No Vision needs: No Physical Exam Vital Signs: Last Vital Signs Pulse 71 12/18/22 08:18 BP 152/88 H 12/18/22 08:18 Absence of Cushingoid features. Absence of acromegalic features. Neck exam reveals nl size thyroid about 15 gms. No thyroid nodules palpable. No carotid bruits present. Lungs CTA. Heart S1 S2, Reg R/R. No M/R/ G. Skin exam reveals absence of vitiligo or acanthosis nigricans. Abdominal exam reveals Soft NT/ND with NA BS. No organomegaly present. She is on oxygen cannula . There are few pigmented spots on the abdomen but no induration or hypertrophy around injection sites Neck Other: . Extrem Other: Visual exam of foot performed. No ulcerations or open lesions. No onchomycosis, no callouses.Pulses 2 + distally Sensation intact to monofilament exam. Vibratory sensation sensed is intact with 128 Hz tuning fork. There is 2+ edema present around both ankles Results AMB Hemoglobin A1c AMB Hemoglobin A1c 7.4 % Last Edit by Leonela Kurtz on 12/18/22 08:45 Results Reviewed Results Reviewed: 12/18/22 08:25 Glucose, Whole Blood Routine Laboratory Last Values Glucose (Clinic) 109 mg/dL (60-115) 12/18/22 08:25 Hgb A1c (Clinic) 7.4 % (4.0-6.0) H 12/18/22 08:35 Assessment & Plan Assessment & Plan (1) Type 2 diabetes mellitus with hyperglycemia: Comment: Dr. Turner Code(s): E11.65 - Type 2 diabetes mellitus with hyperglycemia Plan: This is a 52-year-old female with a history of type 2 diabetes being treated with metformin and Jardiance as well as basal insulin with good glycemic control and known microvascular complications namely microalbuminia . There is a prior history of pancreatitis while on Trulicity. . I told the patient to get a over cover for Jared there is hypoallogeneic. She is probably missing post-prandial hyperglycemia. . If this not work, perhaps Dexcom G6 sensor of the abdomen might be better I will have a follow-up with the fence making machine operator. I also made a referral to Podiatry. (2) Nontoxic multinodular goiter: Code(s): E04.2 - Nontoxic multinodular goiter Plan: Status post FNA of a right midpole nodule with indeterminate cytology but benign Affirma. Repeat thyroid ultrasound which shows stability in the size of the nodule. Plan is to follow with serial ultrasounds. Will repeat thyroid ultrasound about a year's time Orders: Orders AMB Hemoglobin A1c Today E11.65 - Type 2 diabetes mellitus with hyperglycemia Referrals Podiatry Referral E11.65 - Type 2 diabetes mellitus with hyperglycemia Coding Level of Care Code Est Pt Level 4 (04239) Diagnoses Type 2 diabetes mellitus with hyperglycemia E11.65 Nontoxic multinodular goiter E04.2
[2022-12-18 08:18] VITALS: BP 152/88; PULSE 71
== END 2022-12-18 08:52 | disposition home or self-care (01) ==
PROVIDERS: PCP Internal Medicine; Visit Provider Internal Medicine Endocrinology, Diabetes & Metabolism
DX: E11.65 Type 2 diabetes mellitus with hyperglycemia (principal); E04.2 Nontoxic multinodular goiter
CPT/HCPCS: 99214

== ENCOUNTER → 2022-12-18 08:13 | Outpatient (BNVA) | payer OTHER, SELFPAY | PROVIDERS: PCP Internal Medicine; Visit Provider Internal Medicine Endocrinology, Diabetes & Metabolism | DX: E11.65 Type 2 diabetes mellitus with hyperglycemia (principal); E04.2 Nontoxic multinodular goiter | CPT/HCPCS: 82947; 83036; 99212 ==

== ENCOUNTER 2022-12-19 08:16 | Outpatient (AMB) | payer OTHER, SELFPAY ==
--- NOTE | 2022-12-19 08:24 | MHC.PC.OV ---
Vital Signs 12/19/22 08:25 12/19/22 08:48 Height 5 ft 2 in Weight 228 lb BMI 41.7 BP 140/88 H 130/70 Blood Pressure Location Lt brachial Lt brachial Position Sitting Sitting Pulse 75 Pulse Source Pulse Oximeter Pulse Oximetry (%) 95 Oxygen Delivery Method Nasal Cannula Intake Visit Reasons: DM Allergies egg Allergy (Unknown, Verified 12/19/22 08:25) throat swells up lisinopril Allergy (Unknown, Verified 12/19/22 08:25) Unknown metformin [METFORMIN] Allergy (Unknown, Verified 12/19/22 08:25) TACHYCARDIA AND DIARRHEA milk Allergy (Unknown, Verified 12/19/22 08:25) throat swells up pioglitazone Adverse Reaction (Unknown, Verified 12/19/22 08:25) Swelling Tobacco use date assessed: 05/23/22 Dental Screening Dental Screen Date: 12/19/22 Did you have a dental visit in the last 12 months?: Yes Did you have a dental problem in the last 6 months where you did not have access to dental care?: No Was dental information given to patient?: Patient has dentist HPI DM HPI Details 52-year-old obese female with diabetes mellitus hypertension post COVID pulmonary problem coming in for follow-up. Review of the notes patient follows up with endocrinology presently on Synjardy and Tresiba.(patient had pancreatitis on Trulicity) patient had thyroid nodules has had biopsy in May 2019 which was suspicious her lungs cell type Afirma negative repeat ultrasound shows stability of the thyroid nodule. decline flu shot and presently on oxygen 0.5 L nasal cannula which is better discussed with the patient the new blood work showing an elevated cholesterol different from previous blood test and patient admits to indiscriminate eating. Discussed again the need to do behave in her diet to get the problems better. [facility] Medical History (Updated 10/16/22 @ 15:24 by Cally Rizvi MD) Hypersomnia Acute neck sprain Eczema Hypoxemia History of acute respiratory distress syndrome (ARDS) Post covid-19 condition, unspecified Restrictive lung disease Respiratory failure with hypoxia Pneumonia due to severe acute respiratory syndrome coronavirus 2 (SARS-CoV-2) COVID-19 virus infection Lower extremity edema Pneumonia COVID-19 virus infection Diabetic nephropathy associated with type 2 diabetes mellitus Diabetic neuropathy associated with type 2 diabetes mellitus Acute meniscal tear of right knee Right thyroid nodule Psoriasis Hypertension Type 2 diabetes mellitus with hyperglycemia Hypercholesterolemia Osteoarthritis Insomnia GERD (gastroesophageal reflux disease) Obesity (BMI 30-39.9) Diabetic nephropathy Bilateral carpal tunnel syndrome Anxiety and depression Surgical History History of D&C History of cholecystectomy History of section History of tubal ligation Family History Father Medical history unknown Mother Diabetes Hypertension Maternal Grandmother Pancreatic cancer Maternal Aunt Breast cancer Sister Breast cancer Social History Household Members: Family Housing: Apartment Do you presently have visiting nurse or other home services: No Alcohol intake: never Patient Tobacco Use Status: Never used Tobacco e-Cigarette/Vaping Use: Never Used Second Hand Smoke Exposure: Yes service: No Current occupational status: disabled Cognitive needs: No Hearing needs: No Vision needs: No Questionnaire PHQ-9 Over the last 2 weeks, how often have you been bothered by any of the following problems? 1. Little interest or pleasure in doing things: several days 2. Feeling down, depressed, or hopeless: several days 3. Trouble falling or staying asleep, or sleeping too much: several days 4. Feeling tired or having little energy: several days 5. Poor appetite or overeating: several days 6. Feeling bad about yourself - or that you are a failure or have let yourself or your family down: several days 7. Trouble concentrating on things, such as reading the newspaper or watching television: not at all 8. Moving or speaking so slowly that other people could have noticed. Or the opposite - being so fidgety or restless that you have been moving around a lot more than usual: not at all 9. Thoughts that you would be better off or of hurting yourself in some way: not at all Total score: 6 Depression Screening Interpretation: Negative Depression Screening Done: Yes Source: Developed by Drs. Delvin Head, Ashley Rahman, Vinod Manzanares and colleagues, with an educational jo-ann from [employer]. Thrive Questionnaire Date Thrive assessed: 05/23/22 AUDIT C Alcohol Use Questionnaire (AUDIT-C) 1. How often do you have a drink containing alcohol?: Never 3. How often do you have six or more drinks on one occasion?: Never Total Score: 0 NANCY-7 AMB Questionnaire NANCY-7 Date NANCY - 7 assessed: 05/23/22 Source: Developed by Drs. Delvin Head, Ashley Rahman, Vinod Manzanares and colleagues, with an educational jo-ann from [employer]. Physical exam (Primary Care) Vital Signs: Last Vital Signs Pulse 75 12/19/22 08:25 BP 140/88 H 12/19/22 08:25 Pulse Ox 95 12/19/22 08:25 Oxygen Delivery Method Nasal Cannula 12/19/22 08:25 BMI result Body Mass Index 41.7 Tobacco/Smoking Status: Tobacco use Status Tobacco use date assessed 05/23/22 12/19/22 08:27 Patient Tobacco Use Status Never used Tobacco 12/19/22 08:27 e-Cigarette/Vaping Use Never Used 12/19/22 08:27 PHQ-9: PHQ-9 Score PHQ-9: Total score 6 12/19/22 08:33 Depression Screening Interpretation: Negative Thrive Assessment: Date of Thrive Assessment Date Thrive assessed 05/23/22 12/19/22 08:27 Const General: alert; No acute distress Eyes Conjunctivae: conjunctivae normal Resp Auscultation: clear to auscultation bilaterally Cardio Rate: regular rate Rhythm: regular rhythm GI Inspection: Yes normal to inspection Extrem General: Yes normal to inspection and No edema Assessment and Plan Assessment & Plan (1) Type 2 diabetes mellitus with hyperglycemia: Comment: Dr. Turner Code(s): E11.65 - Type 2 diabetes mellitus with hyperglycemia Plan: Decrease the amount of carbohydrate intake, pasta, bread, rice and potatoes are all sugar and that is aside from all the sweet stuff, remember that fruits are good but they are Sweet also. Patient is being seen by Endocrinology on Synjardy 12.07/999 mg twice a day Tresiba. (2) Respiratory failure with hypoxia: Comment: POST COVID RELATED ARDS. HER O2 REQUIREMENT HAS IMPROVED SIGNIFICANTLY, NOW DOING OKAY AT 1 L/MINUTE. 6 MINUTES WALK TEST : CONFIRMS THAT SHE NEEDS O2, SUPPLEMENTATION WHEN WALKING. SHE WOULD ALSO CONTINUE TO USE O2 1 L/MINUTE AT NIGHT, Code(s): J96.91 - Respiratory failure, unspecified with hypoxia Plan: Continues to be on oxygen and follows up with Pulmonary continuing with the inhalers (3) Obesity: Comment: SHE IS MORBIDLY OBESE. HAS LOST SOME WEIGHT NEEDS TO LOSE MORE WEIGHT. DIETARY INSTRUCTIONS REPEATED. IT IS DIFFICULT FOR HER TO DO ANY EXERCISE. Code(s): E66.9 - Obesity, unspecified Qualifiers: Obesity type: due to excess calories Obesity classification: adult class 3 (BMI >= 40) Serious obesity comorbidity presence: with serious comorbidity Body mass index: BMI 40.0-44.9 Qualified Code(s): E66.01 - Morbid (severe) obesity due to excess calories; Z68.41 - Body mass index [BMI]40.0-44.9, adult Plan: Diet and exercise (4) GERD (gastroesophageal reflux disease): Code(s): K21.9 - Gastro-esophageal reflux disease without esophagitis Qualifiers: Esophagitis presence: without esophagitis Qualified Code(s): K21.9 - Gastro-esophageal reflux disease without esophagitis Plan: Avoid the foods that causes that usually spicy foods, tomato products, juices, coffee, soda and foods that your sensitive to. After eating do not lie down, allow 3-4 hours before in lie down. And keep the head of bed above 30 degrees to avoid the acid from going up. (5) Hypertension: Code(s): I10 - Essential (primary) hypertension Plan: Continue with blood pressure medication. Decrease salt intake and exercise patient takes losartan atenolol and amlodipine (6) Hypercholesterolemia: Code(s): E78.00 - Pure hypercholesterolemia, unspecified Plan: Avoid fried foods, chicken skin, eggs, butter margarine, pastries and meat. Be it pork or beef they have a lot of cholesterol patient is on atorvastatin 10 mg once a day (7) Generalized anxiety disorder: Code(s): F41.1 - Generalized anxiety disorder Orders: Orders Lipid Panel 3 Months E78.00 - Pure hypercholesterolemia, unspecified Comprehensive Met. Panel 3 Months E78.00 - Pure hypercholesterolemia, unspecified Hemoglobin A1c 3 Months E78.00 - Pure hypercholesterolemia, unspecified Medications: Refilled cholecalciferol (vitamin D3) (Vitamin D3) 50 mcg PO DAILY 90 tabs 3RF E78.00 - Pure hypercholesterolemia, unspecified Coding Level of Care Code Est Pt Level 4 (73891) Diagnoses Type 2 diabetes mellitus with hyperglycemia E11.65 Respiratory failure with hypoxia J96.91 Class 3 severe obesity due to excess calories with serious comorbidity and body mass index (BMI) of 40.0 to 44.9 in adult E66.01; Z68.41 Obesity type: due to excess calories Obesity classification: adult class 3 (BMI >= 40) Serious obesity comorbidity presence: with serious comorbidity Body mass index: BMI 40.0-44.9 Gastroesophageal reflux disease without esophagitis K21.9 Esophagitis presence: without esophagitis Hypertension I10 Hypercholesterolemia E78.00 Generalized anxiety disorder F41.1
[2022-12-19 08:25] VITALS: BP 140/88; PULSE 75; O2SAT 95; BMI 41.7
[2022-12-19 08:48] VITALS: BP 130/70
== END 2022-12-19 09:07 | disposition home or self-care (01) ==
PROVIDERS: PCP Internal Medicine; Visit Provider Internal Medicine
DX: E11.65 Type 2 diabetes mellitus with hyperglycemia (principal); J96.91 Respiratory failure, unspecified with hypoxia; E66.01 Morbid (severe) obesity due to excess calories; Z68.41 Body mass index [BMI] 40.0-44.9, adult; K21.9 Gastro-esophageal reflux disease without esophagitis; I10 Essential (primary) hypertension; E78.00 Pure hypercholesterolemia, unspecified; F41.1 Generalized anxiety disorder; Z23 Encounter for immunization
CPT/HCPCS: 99214

== ENCOUNTER 2023-01-02 09:15 | Outpatient (AMB) | payer OTHER, SELFPAY ==
--- NOTE | 2023-01-02 09:25 | A.OFFVIS_ITS ---
Intake Vital Signs 01/02/23 09:26 Height 5 ft 2 in Weight 229 lb 4.492 oz BMI 41.9 BP 128/68 Blood Pressure Location Rt brachial Position Sitting Pulse 84 Pulse Source Pulse Oximeter Pulse Oximetry (%) 97 Oxygen Delivery Method Room Air Comment 1 Liter Oxygen(Reliable Respiratory) Intake Visit Reasons: COPD Intake Note: Patent states Congestion for 1 week. 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 Allergies egg Allergy (Unknown, Verified 01/02/23 09:30) throat swells up lisinopril Allergy (Unknown, Verified 01/02/23 09:30) Unknown metformin [METFORMIN] Allergy (Unknown, Verified 01/02/23 09:30) TACHYCARDIA AND DIARRHEA milk Allergy (Unknown, Verified 01/02/23 09:30) throat swells up pioglitazone Adverse Reaction (Unknown, Verified 01/02/23 09:30) Swelling Medication List - Last Reconciled 01/02/23 by Zoila Knutson MD acetaminophen (Acetaminophen Extra Strength) 1,000 mg (2 x 500 mg) PO Q6H PRN albuterol sulfate 90 mcg/actuation (Ventolin HFA) 4 puffs inhalation Q3H PRN amlodipine 5 mg PO DAILY atenolol 100 mg PO DAILY atorvastatin 10 mg PO QPM betamethasone dipropionate 0.05% topical blood pressure monitor (Blood Pressure Kit) As directed blood sugar diagnostic (FreeStyle Lite Strips) DIRECTED TESTS 4X/DAY blood-glucose meter (FreeStyle [place] Lite kit) As directed Breo Ellipta 200-25 mcg/dose (fluticasone furoate-vilanterol) 1 inh inhalation DAILY NS calcipotriene 0.005% topical BID PRN cholecalciferol (vitamin D3) (Vitamin D3) 50 mcg PO DAILY clonazepam 1 mg PO BID PRN compress.stocking,knee,reg,lrg As directed 20-30 mm HG cyclobenzaprine 10 mg PO BEDTIME disposable gloves As directed divalproex 500 mg PO BID empagliflozin-metformin 12.5-1,000 mg (Synjardy) 1 tab PO BID escitalopram oxalate 20 mg PO DAILY fexofenadine 180 mg PO DAILY 90 days flash glucose scanning reader (Odimax Jared 2 [place]) As directed changes every 14 days flash glucose sensor (FreeStyle Jared 2 Sensor kit) As directed change every 14 days fluticasone propionate 50 mcg/actuation 2 sprays intranasal DAILY 90 days [incontinence wipes As directed] insulin degludec (Tresiba FlexTouch U-100 insulin) 22 units (0.22 mL) subcut BEDTIME ipratropium bromide 2.5 mL inhalation Q6H PRN 30 days ketoconazole 2% 1 appl topical 2XW lancets (FreeStyle Lancets) As directed losartan TOME DILMA TABLETA POR VIA ORAL A DIARIO melatonin 1 mg PO BEDTIME PRN nebulizers (Aeroneb Go Nebulizer) As directed olopatadine 0.1% 1 drp ophthalmic (eye) BID Oxygen Home Use As directed pen needle, diabetic (BD Patti 2nd Gen Pen Needle) [place] quetiapine 100 mg PO BEDTIME [sanitary pads As directed] triamcinolone acetonide 0.5% 1 appl topical DAILY 14 days Do you need a note to return to daycare/school/sports/work: No HPI COPD HPI Details 52 years old female, morbidly obese, suf fers from COPD and restrictive pulmonary disorder, residual pulmonary fibrosis from previous COVID-19 pneumonia. She is using O2 24 hours a day. During the daytime 1 L/minute and at night 2 L/minute/ Her main complaint is getting short of breath when she walks around and also frequent bouts of nasal congestion. She has mild intermittent cough without much sputum. Overall her pulmonary status is remaining stable. [facility] Medical History Hypersomnia Acute neck sprain Eczema Hypoxemia History of acute respiratory distress syndrome (ARDS) Post covid-19 condition, unspecified Restrictive lung disease Respiratory failure with hypoxia Pneumonia due to severe acute respiratory syndrome coronavirus 2 (SARS-CoV-2) COVID-19 virus infection Lower extremity edema Pneumonia COVID-19 virus infection Diabetic nephropathy associated with type 2 diabetes mellitus Diabetic neuropathy associated with type 2 diabetes mellitus Acute meniscal tear of right knee Right thyroid nodule Psoriasis Hypertension Type 2 diabetes mellitus with hyperglycemia Hypercholesterolemia Osteoarthritis Insomnia GERD (gastroesophageal reflux disease) Obesity (BMI 30-39.9) Diabetic nephropathy Bilateral carpal tunnel syndrome Anxiety and depression Surgical History History of D&C History of cholecystectomy History of section History of tubal ligation Family History Father Medical history unknown Mother Diabetes Hypertension Maternal Grandmother Pancreatic cancer Maternal Aunt Breast cancer Sister Breast cancer Social History Household Members: Family Housing: Apartment Do you presently have visiting nurse or other home services: No Alcohol intake: never Patient Tobacco Use Status: Never used Tobacco e-Cigarette/Vaping Use: Never Used Second Hand Smoke Exposure: Yes service: No Current occupational status: disabled Cognitive needs: No Hearing needs: No Vision needs: No Review of Systems Const All systems reviewed & are unremarkable except as noted in HPI and below Eyes Reports no additional complaints ENT Reports no additional complaints Card Denies chest pain, Denies irregular heart rhythm and Denies leg edema Resp Reports as per HPI GI Reports no additional complaints Reports no additional complaints Musc Reports abnormal gait (WEAK AND SOMETIME HAS TO USE A CANE) and Reports back pain Skin/Breast Reports system reviewed and no additional complaints, except as documented Neuro Reports abnormal gait (WEAK AND SOMETIME HAS TO USE A CANE) Psych Reports no additional complaints Physical Exam Vital Signs: Last Vital Signs Pulse 84 01/02/23 09:26 BP 128/68 01/02/23 09:26 Pulse Ox 97 01/02/23 09:26 Oxygen Delivery Method Room Air 01/02/23 09:26 BMI result Body Mass Index 41.9 Const General: healthy appearing, comfortable, no acute distress, alert and awake Orientation/consciousness: patient oriented x3 HEENT Head: Yes normal to inspection General nose exam: No nasal polyps present and No nasal discharge present Face and sinus: Yes sinuses nontender Mouth: oropharynx normal Throat: Yes posterior oropharynx normal Eyes General: appearance normal, both eyes and all related structures Neck Neck: Yes normal visual inspection, Yes no lymphadenopathy, Yes trachea midline and Yes no JVD Thyroid: Thyroid normal Chest Chest palpation & inspection: normal inspection of the chest, normal palpation of entire chest wall and no tenderness Resp Other: PERCUSSION NOTE IS RESONANT, EXCEPT OVER THE BASILAR AREAS WHERE IT IS SOMEWHAT DIMINISHED DUE TO OBESITY .. BREATH SOUNDS ARE DECREASED OVER THE LOWER LOBES. NO DEFINITE CREPITATIONS OR WHEEZES ARE HEARD . Cardio Palpation: normal PMI Rate: regular rate Rhythm: regular rhythm Heart sounds: no gallops and no murmurs Peripheral pulses: Peripheral pulses 2+ throughout GI Palpation (GI): Soft to palpation, nontender, No hepatosplenomegaly present, no masses and Other GI palpation findings present (ABDOMEN IS MODERATELY OBESE) Auscultation: normal bowel sounds Back/Spine/Pelvis Thoracic/Lumbar Spine: thoracic and lumbar spine normal to inspection and thoraco-lumbar ROM limited Skin General skin exam: no rashes or lesions noted Neuro General: patient oriented x3, No gait normal (IMPAIRED DUE TO WEAKNESS OF THE LOWER EXTREMITIES, WHEELCHAIR TO WALKER.) and no focal motor deficits Cranial nerves: Yes CN's II-XII intact bilaterally Extrem General: Yes normal to inspection, Yes no clubbing, cyanosis or edema and Yes no calf tenderness Psych Appearance: grossly normal and well kempt Speech and movement: Normal speech and movement present Assessment & Plan Assessment & Plan (1) Post covid-19 condition, unspecified: Comment: PATIENT CONTINUES TO HAVE, RESIDUAL INTERSTITIAL LUNG DISEASE, POST COVID. WITH SIGNIFICANT RESPIRATORY INSUFFICIENCY, AND REQUIRING O2 SUPPLEMENTATION. LAST CT SCAN OF THE CHEST in JUNE 2022 SHOWS CONTINUED RESOLUTION OF THE INTERSTITIAL DISEASE IN THE LOWER LOBES . NOW SHE HAS ONLY MINIMAL FIBROTIC STRANDS OVER THE BASES . Code(s): U09.9 - Post COVID-19 condition, unspecified (2) Restrictive lung disease: Comment: CONFIRMED BY COMPLETE PFT SHE DOES HAVE SEVERE RESTRICTIVE PULMONARY DISORDER, TX: STRESSED THAT SHE SHOULD DO DEEP BREATHING EXERCISES EVERY 2 HOURS REGULARLY. Needs complete PFT , which is being ordered Code(s): J98.4 - Other disorders of lung (3) Obesity: Comment: SHE IS MORBIDLY OBESE. HAS LOST SOME WEIGHT NEEDS TO LOSE MORE WEIGHT. DIETARY INSTRUCTIONS REPEATED. IT IS DIFFICULT FOR HER TO DO ANY EXERCISE. Code(s): E66.9 - Obesity, unspecified Qualifiers: Obesity type: due to excess calories Obesity classification: adult class 3 (BMI >= 40) Serious obesity comorbidity presence: with serious comorbidity Body mass index: BMI 40.0-44.9 Qualified Code(s): E66.01 - Morbid (severe) obesity due to excess calories; Z68.41 - Body mass index [BMI]40.0- 44.9, adult (4) Respiratory failure with hypoxia: Comment: POST COVID RELATED ARDS. HER O2 REQUIREMENT HAS IMPROVED SIGNIFICANTLY, NOW DOING OKAY AT 1 L/MINUTE. 6 MINUTES WALK TEST : CONFIRMED THAT SHE NEEDS O2, SUPPLEMENTATION WHEN WALKING. SHE WOULD ALSO CONTINUE TO USE O2 1 L/MINUTE AT NIGHT, Code(s): J96.91 - Respiratory failure, unspecified with hypoxia Coding Level of Care Code Est Pt Level 3 (40129) Diagnoses Post covid-19 condition, unspecified U09.9 Restrictive lung disease J98.4 Class 3 severe obesity due to excess calories with serious comorbidity and body mass index (BMI) of 40.0 to 44.9 in adult E66.01; Z68.41 Obesity type: due to excess calories Obesity classification: adult class 3 (BMI >= 40) Serious obesity comorbidity presence: with serious comorbidity Body mass index: BMI 40.0-44.9 Respiratory failure with hypoxia J96.91
[2023-01-02 09:26] VITALS: BP 128/68; PULSE 84; O2SAT 97; BMI 41.9
== END 2023-01-02 09:50 | disposition home or self-care (01) ==
PROVIDERS: PCP Internal Medicine; Visit Provider Internal Medicine
DX: U09.9 Post COVID-19 condition, unspecified (principal); J98.4 Other disorders of lung; E66.01 Morbid (severe) obesity due to excess calories; Z68.41 Body mass index [BMI] 40.0-44.9, adult; J96.91 Respiratory failure, unspecified with hypoxia
CPT/HCPCS: 99213

== ENCOUNTER → 2023-01-02 09:15 | Outpatient (BNVA) | payer OTHER, SELFPAY | PROVIDERS: PCP Internal Medicine; Visit Provider Internal Medicine | DX: U09.9 Post COVID-19 condition, unspecified (principal); J98.4 Other disorders of lung; J96.91 Respiratory failure, unspecified with hypoxia; E66.01 Morbid (severe) obesity due to excess calories; Z68.41 Body mass index [BMI] 40.0-44.9, adult | CPT/HCPCS: 99212 ==

== ENCOUNTER 2023-01-11 10:32 | Outpatient (AMB) | payer OTHER, SELFPAY ==
[2023-01-11 10:48] VITALS: BP 116/78; PULSE 70; O2SAT 97; BMI 41.4
--- NOTE | 2023-01-11 10:48 | A.OFFPC_ITS ---
Vital Signs 01/11/23 10:48 Height 5 ft 2 in Weight 226 lb 4 oz BMI 41.4 BP 116/78 Blood Pressure Location Lt brachial Position Sitting Pulse 70 Pulse Source Pulse Oximeter Pulse Oximetry (%) 97 Oxygen Delivery Method Nasal Cannula Intake Visit Reasons: leg bruising, painful Intake Note: Pt is here for an ongoing left leg bruising for a week. 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 Accompanied by: Self / Same As Patient Allergies egg Allergy (Unknown, Verified 01/11/23 10:52) throat swells up lisinopril Allergy (Unknown, Verified 01/11/23 10:52) Unknown metformin [METFORMIN] Allergy (Unknown, Verified 01/11/23 10:52) TACHYCARDIA AND DIARRHEA milk Allergy (Unknown, Verified 01/11/23 10:52) throat swells up pioglitazone Adverse Reaction (Unknown, Verified 01/11/23 10:52) Swelling Medication List - Last Reconciled 01/11/23 by Cally Silveira Po, acetaminophen (Acetaminophen Extra Strength) 1,000 mg (2 x 500 mg) PO Q6H PRN albuterol sulfate 90 mcg/actuation (Ventolin HFA) 4 puffs inhalation Q3H PRN amlodipine 5 mg PO DAILY apremilast (Otezla) 30 mg PO BID atenolol 100 mg PO DAILY atorvastatin 10 mg PO QPM betamethasone dipropionate 0.05% topical blood pressure monitor (Blood Pressure Kit) As directed blood sugar diagnostic (FreeStyle Lite Strips) DIRECTED TESTS 4X/DAY blood-glucose meter (FreeStyle [place] Lite kit) As directed Breo Ellipta 200-25 mcg/dose (fluticasone furoate-vilanterol) 1 inh inhalation DAILY NS calcipotriene 0.005% topical BID PRN cholecalciferol (vitamin D3) (Vitamin D3) 50 mcg PO DAILY clonazepam 1 mg PO BID PRN compress.stocking,knee,reg,lrg As directed 20-30 mm HG disposable gloves As directed divalproex 500 mg PO BID empagliflozin-metformin 12.5-1,000 mg (Synjardy) 1 tab PO BID escitalopram oxalate 20 mg PO DAILY fexofenadine 180 mg PO DAILY 90 days flash glucose scanning reader (AdvaliantStyle Jared 2 [place]) As directed changes every 14 days flash glucose sensor (FreeStyle Jared 2 Sensor kit) As directed change every 14 days fluticasone propionate 50 mcg/actuation 2 sprays intranasal DAILY 90 days [incontinence wipes As directed] insulin degludec (Tresiba FlexTouch U-100 insulin) 22 units (0.22 mL) subcut BEDTIME ipratropium bromide 2.5 mL inhalation Q6H PRN 30 days lancets (FreeStyle Lancets) As directed losartan TOME DILMA TABLETA POR VIA ORAL A DIARIO nebulizers (Aeroneb Go Nebulizer) As directed olopatadine 0.1% 1 drp ophthalmic (eye) BID Oxygen Home Use As directed pen needle, diabetic (BD Patti 2nd Gen Pen Needle) TOD[place] quetiapine 100 mg PO BEDTIME [sanitary pads As directed] triamcinolone acetonide 0.5% 1 appl topical DAILY 14 days Tobacco use date assessed: 05/23/22 HPI leg bruising, painful HPI Details 52-year-old morbidly obese female with p ost COVID respiratory failure diabetes mellitus GERD hypertension hypercholesterolemia and generalized anxiety disorder last seen last month. Patient is here for an acute problem. Patient follows up with Pulmonary on also surgeon 24 hours a day daytime as 1 L and at night 2 L nasal cannula last CT scan of the chest June 2022 shows resolution of the interstitial disease of the lower lobes now has minimal fibrotic strands over the basis patient has restrictive pulmonary disorder advised the breathing exercises. December blood work LDL at 100 hemoglobin A1c 7 point goal is 6.5 below [facility] Medical History Hypersomnia Acute neck sprain Eczema Hypoxemia History of acute respiratory distress syndrome (ARDS) Post covid-19 condition, unspecified Restrictive lung disease Respiratory failure with hypoxia Pneumonia due to severe acute respiratory syndrome coronavirus 2 (SARS-CoV-2) COVID-19 virus infection Lower extremity edema Pneumonia COVID-19 virus infection Diabetic nephropathy associated with type 2 diabetes mellitus Diabetic neuropathy associated with type 2 diabetes mellitus Acute meniscal tear of right knee Right thyroid nodule Psoriasis Hypertension Type 2 diabetes mellitus with hyperglycemia Hypercholesterolemia Osteoarthritis Insomnia GERD (gastroesophageal reflux disease) Obesity (BMI 30-39.9) Diabetic nephropathy Bilateral carpal tunnel syndrome Anxiety and depression Surgical History History of D&C History of cholecystectomy History of section History of tubal ligation Family History Father Medical history unknown Mother Diabetes Hypertension Maternal Grandmother Pancreatic cancer Maternal Aunt Breast cancer Sister Breast cancer Social History Household Members: Family Housing: Apartment Do you presently have visiting nurse or other home services: No Alcohol intake: never Patient Tobacco Use Status: Never used Tobacco e-Cigarette/Vaping Use: Never Used Second Hand Smoke Exposure: Yes service: No Current occupational status: disabled Cognitive needs: No Hearing needs: No Vision needs: No Questionnaire Thrive Questionnaire Date Thrive assessed: 05/23/22 NANCY-7 AMB Questionnaire NANCY-7 Date NANCY - 7 assessed: 05/23/22 Source: Developed by Drs. Delvin Head, Ashley Rahman, Vinod Manzanares and colleagues, with an educational jo-ann from [employer]. Physical exam (Primary Care) Vital Signs: Last Vital Signs Pulse 70 01/11/23 10:48 BP 116/78 01/11/23 10:48 Pulse Ox 97 01/11/23 10:48 Oxygen Delivery Method Nasal Cannula 01/11/23 10:48 BMI result Body Mass Index 41.4 Tobacco/Smoking Status: Tobacco use Status Tobacco use date assessed 05/23/22 01/11/23 10:49 Patient Tobacco Use Status Never used Tobacco 01/11/23 10:49 e-Cigarette/Vaping Use Never Used 01/11/23 10:49 Thrive Assessment: Date of Thrive Assessment Date Thrive assessed 05/23/22 01/11/23 10:49 Const General: alert; No acute distress Eyes Conjunctivae: conjunctivae normal Resp Auscultation: clear to auscultation bilaterally Cardio Rate: regular rate Rhythm: regular rhythm GI Inspection: Yes normal to inspection Extrem General: Yes normal to inspection and No edema Assessment and Plan Assessment & Plan (1) Post covid-19 condition, unspecified: Comment: PATIENT CONTINUES TO HAVE, RESIDUAL INTERSTITIAL LUNG DISEASE, POST COVID. WITH SIGNIFICANT RESPIRATORY INSUFFICIENCY, AND REQUIRING O2 SUPPLEMENTATION. LAST CT SCAN OF THE CHEST in JUNE 2022 SHOWS CONTINUED RESOLUTION OF THE INTERSTITIAL DISEASE IN THE LOWER LOBES . NOW SHE HAS ONLY MINIMAL FIBROTIC STRANDS OVER THE BASES . Code(s): U09.9 - Post COVID-19 condition, unspecified Plan: Continue to follow-up with Pulmonary continue with oxygen (2) Hypercholesterolemia: Code(s): E78.00 - Pure hypercholesterolemia, unspecified Plan: Avoid fried foods, chicken skin, eggs, butter margarine, pastries and meat. Be it pork or beef they have a lot of cholesterol LDL goal of less than 100 on atorvastatin 10 mg once a day (3) Type 2 diabetes mellitus with hyperglycemia: Comment: Dr. Turner Code(s): E11.65 - Type 2 diabetes mellitus with hyperglycemia Plan: Decrease the amount of carbohydrate intake, pasta, bread, rice and potatoes are all sugar and that is aside from all the sweet stuff, remember that fruits are good but they are Sweet also. Hemoglobin A1c goal of less than 6.5 patient on Tresiba Synjardy (4) Obesity: Comment: SHE IS MORBIDLY OBESE. HAS LOST SOME WEIGHT NEEDS TO LOSE MORE WEIGHT. DIETARY INSTRUCTIONS REPEATED. IT IS DIFFICULT FOR HER TO DO ANY EXERCISE. Code(s): E66.9 - Obesity, unspecified Qualifiers: Body mass index: BMI 40.0-44.9 Obesity classification: adult class 3 (BMI >= 40) Obesity type: due to excess calories Serious obesity comorbidity presence: with serious comorbidity Qualified Code(s): E66.01 - Morbid (severe) obesity due to excess calories; Z68.41 - Body mass index [BMI]40.0-44.9, adult (5) Hand numbness: Code(s): R20.0 - Anesthesia of skin Plan: decline testing for now and advised to use wrist brace. Medications: Refilled triamcinolone acetonide 0.5% 1 appl topical DAILY 45 grams 0RF 14 days L30.9 - Dermatitis, unspecified Coding Level of Care Code Est Pt Level 4 (20965) Diagnoses Post covid-19 condition, unspecified U09.9 Hypercholesterolemia E78.00 Type 2 diabetes mellitus with hyperglycemia E11.65 Class 3 severe obesity due to excess calories with serious comorbidity and body mass index (BMI) of 40.0 to 44.9 in adult E66.01; Z68.41 Body mass index: BMI 40.0-44.9 Obesity classification: adult class 3 (BMI >= 40) Obesity type: due to excess calories Serious obesity comorbidity presence: with serious comorbidity Hand numbness R20.0
== END 2023-01-11 11:38 | disposition home or self-care (01) ==
PROVIDERS: PCP Internal Medicine; Visit Provider Internal Medicine
DX: U09.9 Post COVID-19 condition, unspecified (principal); E11.65 Type 2 diabetes mellitus with hyperglycemia; E66.01 Morbid (severe) obesity due to excess calories; Z68.41 Body mass index [BMI] 40.0-44.9, adult; E78.00 Pure hypercholesterolemia, unspecified; R20.0 Anesthesia of skin
CPT/HCPCS: 99214

== ENCOUNTER 2023-01-16 10:43 | Outpatient (REF) | payer OTHER, SELFPAY ==
--- NOTE | ~2023-01-16 | MM_ITS ---
EXAMINATION: MM SCREENING DIGITAL BREAST TOMOSYNTHESIS, BILATERAL CLINICAL INFORMATION: Screening. Asymptomatic. COMPARISON: Mammography: This study is compared with prior exams dating back to 2016. TECHNIQUE: Digital breast tomosynthesis is performed in both the craniocaudal and mediolateral oblique views along with computer-aided detection (CAD). Synthesized 2D images are generated from the tomosynthesis. FINDINGS: There are scattered areas of fibroglandular density (ACR BI-RADS breast composition Category b). There are no significant masses, abnormal calcifications, or other abnormalities. MM/MM tomosynthesis screening BI IMPRESSION: No mammographic evidence of malignancy. ASSESSMENT: BI-RADS BI-RADS 1 - Negative RECOMMENDATION: Routine annual mammography screening. 1 year F/U This examination should not preclude the clinical evaluation of a suspicious palpable abnormality. This patient's information was entered into a reminder system with a target due date for their next mammogram.
== END 2023-01-16 10:44 | disposition home or self-care (01) ==
LOC: HO.MAMMO 10:43
PROVIDERS: PCP Internal Medicine; Visit Provider Internal Medicine
DX: Z12.31 Encounter for screening mammogram for malignant neoplasm of breast (principal)
CPT/HCPCS: 77063; 77067

== ENCOUNTER → 2023-01-16 11:15 | Outpatient (BNV) | payer OTHER, SELFPAY | PROVIDERS: PCP Internal Medicine; Visit Provider Radiology Diagnostic Radiology | DX: Z12.31 Encounter for screening mammogram for malignant neoplasm of breast (principal) | CPT/HCPCS: 77063; 77067 ==

== ENCOUNTER 2023-01-28 08:02 | Outpatient (AMB) | payer OTHER, SELFPAY ==
--- NOTE | 2023-01-28 08:47 | A.OFFVIS_ITS ---
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: Cell Support Operator Name: Consuelo [facility] Accompanied by: Self / Same As Patient Allergies egg Allergy (Unknown, Verified 01/11/23 10:52) throat swells up lisinopril Allergy (Unknown, Verified 01/11/23 10:52) Unknown metformin [METFORMIN] Allergy (Unknown, Verified 01/11/23 10:52) TACHYCARDIA AND DIARRHEA milk Allergy (Unknown, Verified 01/11/23 10:52) throat swells up pioglitazone Adverse Reaction (Unknown, Verified 01/11/23 10:52) Swelling HPI Comprehensive Diabetes Asmnt Most Recent Diabetes Results: Microalb/Creat Ratio 251.5 ug/mg cr (<30) H 12/12/22 Cholesterol 175 mg/dL (<200) 12/12/22 HDL Cholesterol 49 mg/dL (>40) 12/12/22 Triglycerides 130 mg/dL (<150) 12/12/22 Creatinine 1.14 mg/dL (0.5-1.4) 12/12/22 Blood Urea Nitrogen 12 mg/dL (9-16) 12/12/22 Sodium 140 mmol/L (135-145) 12/12/22 Potassium 4.1 mmol/L (3.3-5.1) 12/12/22 Chloride 103 mmol/L (96-108) 12/12/22 Carbon Dioxide 27 mmol/L (22-29) 12/12/22 Calcium 10.2 mg/dL (8.4-10.2) 12/12/22 AST 17 U/L (5-31) 12/12/22 ALT 27 U/L (0-31) 12/12/22 Total Protein 7.7 g/dL (6.5-8.0) 12/12/22 Albumin 4.2 g/dL (3.5-5.0) 12/12/22 [facility] Medical History Hypersomnia Acute neck sprain Eczema Hypoxemia History of acute respiratory distress syndrome (ARDS) Post covid-19 condition, unspecified Restrictive lung disease Respiratory failure with hypoxia Pneumonia due to severe acute respiratory syndrome coronavirus 2 (SARS-CoV-2) COVID-19 virus infection Lower extremity edema Pneumonia COVID-19 virus infection Diabetic nephropathy associated with type 2 diabetes mellitus Diabetic neuropathy associated with type 2 diabetes mellitus Acute meniscal tear of right knee Right thyroid nodule Psoriasis Hypertension Type 2 diabetes mellitus with hyperglycemia Hypercholesterolemia Osteoarthritis Insomnia GERD (gastroesophageal reflux disease) Obesity (BMI 30-39.9) Diabetic nephropathy Bilateral carpal tunnel syndrome Anxiety and depression Surgical History History of D&C History of cholecystectomy History of section History of tubal ligation Family History Father Medical history unknown Mother Diabetes Hypertension Maternal Grandmother Pancreatic cancer Maternal Aunt Breast cancer Sister Breast cancer Social History Household Members: Family Housing: Apartment Do you presently have visiting nurse or other home services: No Alcohol intake: never Patient Tobacco Use Status: Never used Tobacco e-Cigarette/Vaping Use: Never Used Second Hand Smoke Exposure: Yes service: No Current occupational status: disabled Cognitive needs: No Hearing needs: No Vision needs: No Assessment & Plan Assessment & Plan (1) Type 2 diabetes mellitus with hyperglycemia: Comment: Dr. Turner Code(s): E11.65 - Type 2 diabetes mellitus with hyperglycemia Plan: Personal Continuous Glucose Monitor: Patient has not been wearing Jared 2 glucose sensor, due to sensitivity to overlay patch. We will reschedule appointment to set up a trial of for Dexcom G7 sensor, to see if patient is sensitive to adhesive on Dexcom G sensor. Patient also prefers to wear sensor on abdomen Coding Level of Care Code Est Pt Level 1 (34990) Diagnoses Type 2 diabetes mellitus with hyperglycemia E11.65
== END 2023-01-28 08:52 | disposition home or self-care (01) ==
PROVIDERS: PCP Internal Medicine; Visit Provider Registered Nurse Diabetes Educator
DX: E11.65 Type 2 diabetes mellitus with hyperglycemia (principal)

== ENCOUNTER → 2023-01-28 08:02 | Outpatient (BNVA) | payer OTHER, SELFPAY | PROVIDERS: PCP Internal Medicine; Visit Provider Registered Nurse Diabetes Educator | DX: E11.65 Type 2 diabetes mellitus with hyperglycemia (principal) | CPT/HCPCS: 99211 ==

== ENCOUNTER 2023-02-12 08:17 | Outpatient (AMB) | payer OTHER, SELFPAY ==
--- NOTE | 2023-02-12 08:29 | MHC.AMDMED ---
Intake Intake Visit Reasons: 60 Min Setup Dexcom G7 sample/conf Dyeing Machine Feeder Required: Yes Dyeing Machine Feeder Language: Flour Blender Name: Marlon [id number] Information Interpreted: non-clinical & clinical Accompanied by: Self / Same As Patient Allergies egg Allergy (Unknown, Verified 01/11/23 10:52) throat swells up lisinopril Allergy (Unknown, Verified 01/11/23 10:52) Unknown metformin [METFORMIN] Allergy (Unknown, Verified 01/11/23 10:52) TACHYCARDIA AND DIARRHEA milk Allergy (Unknown, Verified 01/11/23 10:52) throat swells up pioglitazone Adverse Reaction (Unknown, Verified 01/11/23 10:52) Swelling HPI Comprehensive Diabetes Asmnt Most Recent Diabetes Results: Microalb/Creat Ratio 251.5 ug/mg cr (<30) H 12/12/22 Cholesterol 175 mg/dL (<200) 12/12/22 HDL Cholesterol 49 mg/dL (>40) 12/12/22 Triglycerides 130 mg/dL (<150) 12/12/22 Creatinine 1.14 mg/dL (0.5-1.4) 12/12/22 Blood Urea Nitrogen 12 mg/dL (9-16) 12/12/22 Sodium 140 mmol/L (135-145) 12/12/22 Potassium 4.1 mmol/L (3.3-5.1) 12/12/22 Chloride 103 mmol/L (96-108) 12/12/22 Carbon Dioxide 27 mmol/L (22-29) 12/12/22 Calcium 10.2 mg/dL (8.4-10.2) 12/12/22 AST 17 U/L (5-31) 12/12/22 ALT 27 U/L (0-31) 12/12/22 Total Protein 7.7 g/dL (6.5-8.0) 12/12/22 Albumin 4.2 g/dL (3.5-5.0) 12/12/22 [facility], [facility] Medical History Hypersomnia Acute neck sprain Eczema Hypoxemia History of acute respiratory distress syndrome (ARDS) Post covid-19 condition, unspecified Restrictive lung disease Respiratory failure with hypoxia Pneumonia due to severe acute respiratory syndrome coronavirus 2 (SARS-CoV-2) COVID-19 virus infection Lower extremity edema Pneumonia COVID-19 virus infection Diabetic nephropathy associated with type 2 diabetes mellitus Diabetic neuropathy associated with type 2 diabetes mellitus Acute meniscal tear of right knee Right thyroid nodule Psoriasis Hypertension Type 2 diabetes mellitus with hyperglycemia Hypercholesterolemia Osteoarthritis Insomnia GERD (gastroesophageal reflux disease) Obesity (BMI 30-39.9) Diabetic nephropathy Bilateral carpal tunnel syndrome Anxiety and depression Surgical History History of D&C History of cholecystectomy History of section History of tubal ligation Family History Father Medical history unknown Mother Diabetes Hypertension Maternal Grandmother Pancreatic cancer Maternal Aunt Breast cancer Sister Breast cancer Social History Household Members: Family Housing: Apartment Do you presently have visiting nurse or other home services: No Alcohol intake: never Patient Tobacco Use Status: Never used Tobacco e-Cigarette/Vaping Use: Never Used Second Hand Smoke Exposure: Yes service: No Current occupational status: disabled Cognitive needs: No Hearing needs: No Vision needs: No Assessment & Plan Assessment & Plan (1) Type 2 diabetes mellitus with hyperglycemia: Comment: Dr. Turner Code(s): E11.65 - Type 2 diabetes mellitus with hyperglycemia Plan: Patient at visit to set up an insert Dexcom G7 sample sensor Instructed patient sensors water proof you can shower, or swim do not submerge sensor in water for over 30 minutes Is sensor falls off cannot put back in you need to replace sensor, customer service number given to patient for sensor replacement Sensor placed on the right side of abdomen Patient left visit with sensor in warmup Reviewed how to interpret trend arrows Reminded patient that to check finger sticks if symptoms do not match sensor reading. Discussed lag time between finger stick and sensor data.? Instructed patient she should always keep blood glucometer for backup testing if needed Reviewed delay of CGM from fingersticks Reminded pt that if symptoms do not match sensor still needs to check fingersticks. Coding Level of Care Code Est Pt Level 1 (96277) Diagnoses Type 2 diabetes mellitus with hyperglycemia E11.65
== END 2023-02-12 08:56 | disposition home or self-care (01) ==
PROVIDERS: PCP Internal Medicine; Visit Provider Registered Nurse Diabetes Educator
DX: E11.65 Type 2 diabetes mellitus with hyperglycemia (principal)

== ENCOUNTER → 2023-02-12 08:17 | Outpatient (BNVA) | payer OTHER, SELFPAY | PROVIDERS: PCP Internal Medicine; Visit Provider Registered Nurse Diabetes Educator | DX: E11.65 Type 2 diabetes mellitus with hyperglycemia (principal) | CPT/HCPCS: 99211 ==

== ENCOUNTER 2023-02-26 07:54 | Outpatient (AMB) | payer OTHER, SELFPAY ==
--- NOTE | 2023-02-26 08:27 | A.OFFVIS_ITS ---
Intake Intake Visit Reasons: 30 MIN/CONFIRMED District Home Economics Agent Required: Yes District Home Economics Agent Language: Day Care Provider Name: C Intrepreter Accompanied by: Self / Same As Patient Allergies egg Allergy (Unknown, Verified 01/11/23 10:52) throat swells up lisinopril Allergy (Unknown, Verified 01/11/23 10:52) Unknown metformin [METFORMIN] Allergy (Unknown, Verified 01/11/23 10:52) TACHYCARDIA AND DIARRHEA milk Allergy (Unknown, Verified 01/11/23 10:52) throat swells up pioglitazone Adverse Reaction (Unknown, Verified 01/11/23 10:52) Swelling HPI Comprehensive Diabetes Asmnt Most Recent Diabetes Results: Microalb/Creat Ratio 251.5 ug/mg cr (<30) H 12/12/22 Cholesterol 175 mg/dL (<200) 12/12/22 HDL Cholesterol 49 mg/dL (>40) 12/12/22 Triglycerides 130 mg/dL (<150) 12/12/22 Creatinine 1.14 mg/dL (0.5-1.4) 12/12/22 Blood Urea Nitrogen 12 mg/dL (9-16) 12/12/22 Sodium 140 mmol/L (135-145) 12/12/22 Potassium 4.1 mmol/L (3.3-5.1) 12/12/22 Chloride 103 mmol/L (96-108) 12/12/22 Carbon Dioxide 27 mmol/L (22-29) 12/12/22 Calcium 10.2 mg/dL (8.4-10.2) 12/12/22 AST 17 U/L (5-31) 12/12/22 ALT 27 U/L (0-31) 12/12/22 Total Protein 7.7 g/dL (6.5-8.0) 12/12/22 Albumin 4.2 g/dL (3.5-5.0) 12/12/22 [facility] Medical History Hypersomnia Acute neck sprain Eczema Hypoxemia History of acute respiratory distress syndrome (ARDS) Post covid-19 condition, unspecified Restrictive lung disease Respiratory failure with hypoxia Pneumonia due to severe acute respiratory syndrome coronavirus 2 (SARS-CoV-2) COVID-19 virus infection Lower extremity edema Pneumonia COVID-19 virus infection Diabetic nephropathy associated with type 2 diabetes mellitus Diabetic neuropathy associated with type 2 diabetes mellitus Acute meniscal tear of right knee Right thyroid nodule Psoriasis Hypertension Type 2 diabetes mellitus with hyperglycemia Hypercholesterolemia Osteoarthritis Insomnia GERD (gastroesophageal reflux disease) Obesity (BMI 30-39.9) Diabetic nephropathy Bilateral carpal tunnel syndrome Anxiety and depression Surgical History History of D&C History of cholecystectomy History of section History of tubal ligation Family History Father Medical history unknown Mother Diabetes Hypertension Maternal Grandmother Pancreatic cancer Maternal Aunt Breast cancer Sister Breast cancer Social History Household Members: Family Housing: Apartment Do you presently have visiting nurse or other home services: No Alcohol intake: never Patient Tobacco Use Status: Never used Tobacco e-Cigarette/Vaping Use: Never Used Second Hand Smoke Exposure: Yes service: No Current occupational status: disabled Cognitive needs: No Hearing needs: No Vision needs: No Assessment & Plan Assessment & Plan (1) Type 2 diabetes mellitus with hyperglycemia: Comment: Dr. Turner Code(s): E11.65 - Type 2 diabetes mellitus with hyperglycemia Plan: Personal Continuous Glucose Monitor: Patients CGM information reviewed Reviewed patient's sensor data: Hypoglycemia: ? 0% Hyperglycemia:? 22% Time in Range:? 78 Average glucose for the last 2 weeks?149 mg/dL Patient reports she did not react to adhesive on Dexcom G7 sensors, patient was unable to tolerate adhesive on Jared 2 sensors patient has slight increased excursion after breakfast, and suppertime recommended to patient to decrease carbohydrate portions at breakfast and dinner prescription request sent to Dr. Mas for Dexcom G7 sensor Reviewed how to interpret trend arrows Reminded patient that to check finger sticks if symptoms do not match sensor reading. Discussed lag time between finger stick and sensor data.? Patient able to insert sensor independently at home without issue.? patient instructed to contact transcript clerk if she does not receive Dexcom G7 sensors within the next 3 weeks patient will follow-up with transcript clerk in 3 minutes Patient Instructions: Instrucciones para el paciente: CGM proporciona informaci?n sobre el control de la glucosa en hugh a lo marion del d?a, incluidas la hiperglucemia y la hipoglucemia. Contin?e controlando la glucosa en hugh seg?n las instrucciones. Siga las pautas de nutrici?n proporcionadas. Informe cualquier molestia de inmediato al proveedor de atenci?n m?dica. Mantente sienna hidratado. Puede ba?arse, ducharse, nadar y hacer ejercicio mientras usa el sensor de glucosa. No sumerja el sensor de glucosa en agua beau m?s de 30 minutos. Retire el sensor para nayely resonancia magn?megan o nayely tomograf?a computarizada. Evite la m?quina de mitesh X en los aeropuertos: retire el sensor o solicite la varita Coding Level of Care Code Est Pt Level 1 (72737) Diagnoses Type 2 diabetes mellitus with hyperglycemia E11.65
== END 2023-02-26 08:32 | disposition home or self-care (01) ==
PROVIDERS: PCP Internal Medicine; Visit Provider Registered Nurse Diabetes Educator
DX: E11.65 Type 2 diabetes mellitus with hyperglycemia (principal)

== ENCOUNTER → 2023-02-26 07:54 | Outpatient (BNVA) | payer OTHER, SELFPAY | PROVIDERS: PCP Internal Medicine; Visit Provider Registered Nurse Diabetes Educator | DX: E11.65 Type 2 diabetes mellitus with hyperglycemia (principal) | CPT/HCPCS: 99211 ==

== ENCOUNTER 2023-03-27 07:53 | Outpatient (AMB) | payer OTHER, SELFPAY ==
--- NOTE | 2023-03-27 08:02 | A.OFFPC_ITS ---
Vital Signs 03/27/23 08:03 Height 5 ft 2 in Weight 219 lb BMI 40.1 BP 148/88 H Blood Pressure Location Lt brachial Position Sitting Pulse 81 Pulse Source Pulse Oximeter Pulse Oximetry (%) 94 Oxygen Delivery Method Nasal Cannula Intake Visit Reasons: DM Allergies egg Allergy (Unknown, Verified 03/27/23 08:03) throat swells up lisinopril Allergy (Unknown, Verified 03/27/23 08:03) Unknown metformin [METFORMIN] Allergy (Unknown, Verified 03/27/23 08:03) TACHYCARDIA AND DIARRHEA milk Allergy (Unknown, Verified 03/27/23 08:03) throat swells up dulaglutide [From Trulicity] Adverse Reaction (Intermediate, Unverified 03/27/23 08:44) pancreatitis pioglitazone Adverse Reaction (Unknown, Verified 03/27/23 08:03) Swelling Medication List - Last Reconciled 03/27/23 by Cally Rizvi MD acetaminophen (Acetaminophen Extra Strength) 1,000 mg (2 x 500 mg) PO Q6H PRN albuterol sulfate 90 mcg/actuation (Ventolin HFA) 4 puffs inhalation Q3H PRN amlodipine 5 mg PO DAILY apremilast (Otezla) 30 mg PO BID atenolol 100 mg PO DAILY atorvastatin 10 mg PO QPM betamethasone dipropionate 0.05% topical blood pressure monitor (Blood Pressure Kit) As directed blood sugar diagnostic (FreeStyle Lite Strips) DIRECTED TESTS 4X/DAY blood-glucose meter (FreeStyle [place] Lite kit) As directed blood-glucose meter,continuous (DexB2B-Center G7 Fishing Boat Captain) As directed blood-glucose sensor (Dexcom G7 Sensor device) As directed change every 10 days Breo Ellipta 200-25 mcg/dose (fluticasone furoate-vilanterol) 1 inh inhalation DAILY NS calcipotriene 0.005% topical BID PRN cholecalciferol (vitamin D3) (Vitamin D3) 50 mcg PO DAILY clonazepam 1 mg PO BID PRN compress.stocking,knee,reg,lrg As directed 20-30 mm HG disposable gloves As directed divalproex 500 mg PO BID empagliflozin-metformin 12.5-1,000 mg (Synjardy) 1 tab PO BID escitalopram oxalate 20 mg PO DAILY fexofenadine 180 mg PO DAILY 90 days flash glucose scanning reader (FreeStyle Jared 2 [place]) As directed changes every 14 days flash glucose sensor (FreeStyle Jared 2 Sensor kit) As directed change every 14 days fluticasone propionate 50 mcg/actuation 2 sprays intranasal DAILY 90 days [incontinence wipes As directed] ipratropium bromide 2.5 mL inhalation Q6H PRN 30 days lancets (FreeStyle Lancets) As directed losartan 100 mg PO DAILY nebulizers (Aeroneb Go Nebulizer) As directed olopatadine 0.1% 1 drp ophthalmic (eye) BID Oxygen Home Use As directed pen needle, diabetic (BD Patti 2nd Gen Pen Needle) USE PARMINDER LO INDICADO DIRECTED INJECT ONCE A DAY quetiapine 100 mg PO BEDTIME [sanitary pads As directed] Tresiba FlexTouch U-100 (insulin degludec) 22 units (0.22 mL) subcut BEDTIME NS triamcinolone acetonide 0.5% 1 appl topical DAILY 14 days Tobacco use date assessed: 03/27/23 Dental Screening Dental Screen Date: 03/27/23 Did you have a dental visit in the last 12 months?: Yes Did you have a dental problem in the last 6 months where you did not have access to dental care?: No Was dental information given to patient?: Patient has dentist HPI DM HPI Details 52-year-old morbidly obese female with d iabetes mellitus hypercholesterolemia post COVID-19 interstitial lung disease coming in for follow-up. Last seen in January 2023. Patient is up-to-date with mammogram. Patient has been following up with endocrinology has had the continues glucose monitor. PAtient has had hypoglycemia waking her up in am too low- and has seen endo and has decreased insulin already - now states still 90is and will be ff up with Endo. PAtient will have L eye surgery 04/2023 [facility] Medical History (Updated 03/27/23 @ 08:38 by Cally Rizvi MD) Witnessed apneic spells Eczema Hordeolum externum left eye, unspecified eyelid Obesity Hypoxemia Headache History of acute respiratory distress syndrome (ARDS) Persistent insomnia Respiratory failure with hypoxia Pneumonia due to severe acute respiratory syndrome coronavirus 2 (SARS-CoV-2) COVID-19 virus infection Cavitary lesion of lung Obesity (BMI 30-39.9) Anxiety and depression Hypersomnia Acute neck sprain Post covid-19 condition, unspecified Restrictive lung disease Lower extremity edema Pneumonia COVID-19 virus infection Diabetic nephropathy associated with type 2 diabetes mellitus Diabetic neuropathy associated with type 2 diabetes mellitus Acute meniscal tear of right knee Right thyroid nodule Psoriasis Hypertension Type 2 diabetes mellitus with hyperglycemia Hypercholesterolemia Osteoarthritis Insomnia GERD (gastroesophageal reflux disease) Diabetic nephropathy Bilateral carpal tunnel syndrome Surgical History History of D&C History of cholecystectomy History of section History of tubal ligation Family History Father Medical history unknown Mother Diabetes Hypertension Maternal Grandmother Pancreatic cancer Maternal Aunt Breast cancer Sister Breast cancer Social History Household Members: Family Housing: Apartment Do you presently have visiting nurse or other home services: No Alcohol intake: never Patient Tobacco Use Status: Never used Tobacco e-Cigarette/Vaping Use: Never Used Second Hand Smoke Exposure: Yes service: No Current occupational status: disabled Cognitive needs: No Hearing needs: No Vision needs: No Questionnaire PHQ-9 Over the last 2 weeks, how often have you been bothered by any of the following problems? 1. Little interest or pleasure in doing things: several days 2. Feeling down, depressed, or hopeless: several days 3. Trouble falling or staying asleep, or sleeping too much: several days 4. Feeling tired or having little energy: several days 5. Poor appetite or overeating: several days 6. Feeling bad about yourself - or that you are a failure or have let yourself or your family down: several days 7. Trouble concentrating on things, such as reading the newspaper or watching television: not at all 8. Moving or speaking so slowly that other people could have noticed. Or the opposite - being so fidgety or restless that you have been moving around a lot more than usual: not at all 9. Thoughts that you would be better off or of hurting yourself in some way: not at all Total score: 6 Depression Screening Interpretation: Negative Depression Screening Done: Yes Source: Developed by Drs. Delvin Head, Ashley Rahman, Vinod Manzanares and colleagues, with an educational jo-ann from [employer]. Thrive Questionnaire Date Thrive assessed: 03/27/23 I am a: Patient What is your living situation today?: I have a steady place to live Within the past 12 months, did the food you bought not last and you didn't have the money to get more?: Never true Within the past 12 months, did you worry whether your food would run out before you got money to buy more?: Never true Do you have trouble paying for medicines?: No Do you have trouble getting transportation to medical appointments?: No Do you have trouble paying your heating and electricity bill?: No Do you have trouble taking care of your child, family member or friend?: No Do you have trouble with day-to-day activities such as bathing, preparing meals, shopping, managing finances, etc.?: No Are you currently unemployed and looking for a job?: No Are you interested in more education?: No AUDIT C Alcohol Use Questionnaire (AUDIT-C) 1. How often do you have a drink containing alcohol?: Never 3. How often do you have six or more drinks on one occasion?: Never Total Score: 0 NANCY-7 AMB Questionnaire NANCY-7 Date NANCY - 7 assessed: 03/27/23 Feeling nervous, anxious, or on edge: 0 = Not at all Not being able to stop or control worryin = Not at all Worrying too much about different things: 0 = Not at all Trouble relaxin = Not at all Being so restless that it is hard to sit still: 0 = Not at all Becoming easily annoyed or irritable: 0 = Not at all Feeling afraid as if something awful might happen: 0 = Not at all Total NANCY-7 score (0-4 normal; 5-9 mild; 10-14 moderate; 15-21 severe): 0 Source: Developed by Drs. Delvin Head, Ashley Rahman, Vinod Manzanares and colleagues, with an educational jo-ann from [employer]. Physical exam (Primary Care) Vital Signs: Last Vital Signs Pulse 81 03/27/23 08:03 BP 148/88 H 03/27/23 08:03 Pulse Ox 94 03/27/23 08:03 Oxygen Delivery Method Nasal Cannula 03/27/23 08:03 BMI result Body Mass Index 40.1 Tobacco/Smoking Status: Tobacco use Status Tobacco use date assessed 03/27/23 03/27/23 08:06 Patient Tobacco Use Status Never used Tobacco 03/27/23 08:06 e-Cigarette/Vaping Use Never Used 03/27/23 08:06 PHQ-9: PHQ-9 Score PHQ-9: Total score 6 03/27/23 08:29 Depression Screening Interpretation: Negative Thrive Assessment: Date of Thrive Assessment Date Thrive assessed 03/27/23 03/27/23 08:06 Const General: alert; No acute distress Eyes Conjunctivae: conjunctivae normal Resp Auscultation: clear to auscultation bilaterally Cardio Rate: regular rate Rhythm: regular rhythm GI Inspection: Yes normal to inspection Extrem General: Yes normal to inspection and No edema Results AMB Hemoglobin A1c AMB Hemoglobin A1c 7.6 % Last Edit by Charla Abreu CMA on 03/27/23 08 :29 Results Reviewed Results Reviewed: Laboratory Last Values Hgb A1c (Clinic) 7.6 % (4.0-6.0) H 03/27/23 08:09 Assessment and Plan Assessment & Plan (1) Obesity: Comment: SHE IS MORBIDLY OBESE. HAS LOST SOME WEIGHT NEEDS TO LOSE MORE WEIGHT. DIETARY INSTRUCTIONS REPEATED. IT IS DIFFICULT FOR HER TO DO ANY EXERCISE. Code(s): E66.9 - Obesity, unspecified Qualifiers: Obesity type: due to excess calories Obesity classification: adult class 3 (BMI >= 40) Serious obesity comorbidity presence: with serious comorbidity Body mass index: BMI 40.0-44.9 Qualified Code(s): E66.01 - Morbid (severe) obesity due to excess calories; Z68.41 - Body mass index [BMI]40.0- 44.9, adult Plan: Continue with diet and exercise patient has been losing weight (2) GERD (gastroesophageal reflux disease): Code(s): K21.9 - Gastro-esophageal reflux disease without esophagitis Qualifiers: Esophagitis presence: without esophagitis Qualified Code(s): K21.9 - Gastro-esophageal reflux disease without esophagitis Plan: Avoid the foods that causes that usually spicy foods, tomato products, juices, coffee, soda and foods that your sensitive to. After eating do not lie down, allow 3-4 hours before in lie down. And keep the head of bed above 30 degrees to avoid the acid from going up. (3) Type 2 diabetes mellitus with hyperglycemia: Comment: Dr. Turner Code(s): E11.65 - Type 2 diabetes mellitus with hyperglycemia Plan: Decrease the amount of carbohydrate intake, pasta, bread, rice and potatoes are all sugar and that is aside from all the sweet stuff, remember that fruits are good but they are Sweet also. Patient continues to follow-up with endocrinology presently on Tresiba empagliflozin and metformin hemoglobin A1c goal of less than 6.5. (4) Hypercholesterolemia: Code(s): E78.00 - Pure hypercholesterolemia, unspecified Plan: Avoid fried foods, chicken skin, eggs, butter margarine, pastries and meat. Be it pork or beef they have a lot of cholesterol LDL goal of less than 100 and triglyceride of less than 150 patient takes atorvastatin 10 mg once a day last blood work came up as 100. Will need to follow-up. blood work has been requested (5) Post covid-19 condition, unspecified: Comment: PATIENT CONTINUES TO HAVE, RESIDUAL INTERSTITIAL LUNG DISEASE, POST COVID. WITH SIGNIFICANT RESPIRATORY INSUFFICIENCY, AND REQUIRING O2 SUPPLEMENTATION. LAST CT SCAN OF THE CHEST in JUNE 2022 SHOWS CONTINUED RESOLUTION OF THE INTERSTITIAL DISEASE IN THE LOWER LOBES . NOW SHE HAS ONLY MINIMAL FIBROTIC STRANDS OVER THE BASES . Code(s): U09.9 - Post COVID-19 condition, unspecified Plan: Patient follows up with Pulmonary continuing with the inhalers on oxygen (6) Hypertension: Code(s): I10 - Essential (primary) hypertension Plan: Continue with blood pressure medication. Decrease salt intake and exercise patient takes losartan 100 mg once a day atenolol 100 mg once a day and amlodipine 5 mg once a day. still high today but advised to retest BP and record. (7) Generalized anxiety disorder: Code(s): F41.1 - Generalized anxiety disorder Plan: Presently stable with medication to take as needed Lexapro and clonazepam Orders: Orders AMB Hemoglobin A1c Today Z13.9 - Encounter for screening, unspecified Coding Level of Care Code Est Pt Level 4 (96971) Diagnoses Class 3 severe obesity due to excess calories with serious comorbidity and body mass index (BMI) of 40.0 to 44.9 in adult E66.01; Z68.41 Obesity type: due to excess calories Obesity classification: adult class 3 (BMI >= 40) Serious obesity comorbidity presence: with serious comorbidity Body mass index: BMI 40.0-44.9 Gastroesophageal reflux disease without esophagitis K21.9 Esophagitis presence: without esophagitis Type 2 diabetes mellitus with hyperglycemia E11.65 Hypercholesterolemia E78.00 Post covid-19 condition, unspecified U09.9 Hypertension I10 Generalized anxiety disorder F41.1
[2023-03-27 08:03] VITALS: BP 148/88; PULSE 81; O2SAT 94; BMI 40.1
== END 2023-03-27 09:02 | disposition home or self-care (01) ==
PROVIDERS: PCP Internal Medicine; Visit Provider Internal Medicine
DX: E11.65 Type 2 diabetes mellitus with hyperglycemia (principal); E66.01 Morbid (severe) obesity due to excess calories; Z68.41 Body mass index [BMI] 40.0-44.9, adult; K21.9 Gastro-esophageal reflux disease without esophagitis; E78.00 Pure hypercholesterolemia, unspecified; U09.9 Post COVID-19 condition, unspecified; I10 Essential (primary) hypertension; F41.1 Generalized anxiety disorder
CPT/HCPCS: 83036; 99214

== ENCOUNTER 2023-03-27 09:11 | Outpatient (REF) | payer OTHER, SELFPAY ==
[2023-03-27 09:40] LABS: Estimated Average Glucose 143 mg/dL; Hemoglobin A1c % 6.6 % (<6.0)
[2023-03-27 10:10] LABS: Alanine Aminotransferase 35 U/L (0-31); Albumin Level 4.3 g/dL (3.5-5.0); Alkaline Phosphatase 116 U/L (39-117); Anion Gap 14 (12-20); Aspartate Amino Transferase 21 U/L (5-31); Bilirubin Total 0.4 mg/dL (0.0-1.0); Blood Urea Nitrogen 22 mg/dL (9-16); Calcium 10.6 mg/dL (8.4-10.2); Carbon Dioxide 30 mmol/L (22-29); Chloride 102 mmol/L (96-108); Cholesterol 192 mg/dL (<200); Estimated Glomerular Filt Rate 38; Glucose Random 139 mg/dL (60-115); HDL Cholesterol 49 mg/dL (>40); LDL Cholesterol Calculated 106 mg/dL (<100); Potassium 4.3 mmol/L (3.3-5.1); Sodium 142 mmol/L (135-145); Total Protein 8.2 g/dL (6.5-8.0); Triglycerides 186 mg/dL (<150)
== END 2023-03-27 09:12 | disposition home or self-care (01) ==
LOC: HO.LAB 09:11
PROVIDERS: PCP Internal Medicine; Visit Provider Internal Medicine
DX: E78.00 Pure hypercholesterolemia, unspecified (principal)
CPT/HCPCS: 36415; 80053; 80061; 83036

== ENCOUNTER 2023-04-03 08:55 | Outpatient (REF) | payer OTHER, SELFPAY ==
[2023-04-03 10:06] LABS: Anion Gap 13 (12-20); Blood Urea Nitrogen 13 mg/dL (9-16); Calcium 10.6 mg/dL (8.4-10.2); Carbon Dioxide 26 mmol/L (22-29); Chloride 104 mmol/L (96-108); Estimated Glomerular Filt Rate 46; Glucose Random 131 mg/dL (60-115); Potassium 3.7 mmol/L (3.3-5.1); Sodium 139 mmol/L (135-145)
== END 2023-04-03 08:56 | disposition home or self-care (01) ==
LOC: HO.LAB 08:55
PROVIDERS: PCP Internal Medicine; Visit Provider Internal Medicine
DX: J44.9 Chronic obstructive pulmonary disease, unspecified (principal); J98.4 Other disorders of lung; I10 Essential (primary) hypertension; E66.01 Morbid (severe) obesity due to excess calories; U09.9 Post COVID-19 condition, unspecified; Z68.41 Body mass index [BMI] 40.0-44.9, adult; Z99.81 Dependence on supplemental oxygen; Z79.899 Other long term (current) drug therapy
CPT/HCPCS: 36415; 80048; 99212

== ENCOUNTER 2023-04-03 09:13 | Outpatient (AMB) | payer OTHER, SELFPAY ==
[2023-04-03 09:19] VITALS: BP 130/84; PULSE 76; O2SAT 96; BMI 40.7
--- NOTE | 2023-04-03 09:19 | MHC.OFFVIS ---
Intake Vital Signs 04/03/23 09:19 Height 5 ft 2 in Weight 222 lb 10.67 oz BMI 40.7 BP 130/84 Blood Pressure Location Lt brachial Position Sitting Pulse 76 Pulse Source Pulse Oximeter Pulse Oximetry (%) 96 Oxygen Delivery Method Nasal Cannula Oxygen Flow Rate 2 Intake Visit Reasons: COPD Intake Note: pt is here for follow up and states she is feeling regular. sometimes she can take a break, she does sleep, but the nasal canula falls off and she wakes up coughing. Crime Scene Evidence Technician Required: No Allergies egg Allergy (Unknown, Verified 04/03/23 09:30) throat swells up lisinopril Allergy (Unknown, Verified 04/03/23 09:30) Unknown metformin [METFORMIN] Allergy (Unknown, Verified 04/03/23 09:30) TACHYCARDIA AND DIARRHEA milk Allergy (Unknown, Verified 04/03/23 09:30) throat swells up dulaglutide [From Trulicity] Adverse Reaction (Intermediate, Unverified 04/03/23 09:30) pancreatitis pioglitazone Adverse Reaction (Unknown, Verified 04/03/23 09:30) Swelling Medication List - Last Reconciled 04/03/23 by Zoila Knutson MD acetaminophen (Acetaminophen Extra Strength) 1,000 mg (2 x 500 mg) PO Q6H PRN albuterol sulfate 90 mcg/actuation (Ventolin HFA) 4 puffs inhalation Q3H PRN amlodipine 5 mg PO DAILY apremilast (Otezla) 30 mg PO BID atenolol 100 mg PO DAILY atorvastatin 10 mg PO QPM betamethasone dipropionate 0.05% topical blood pressure monitor (Blood Pressure Kit) As directed blood sugar diagnostic (FreeStyle Lite Strips) DIRECTED TESTS 4X/DAY blood-glucose meter (FreeStyle [place] Lite kit) As directed blood-glucose meter,continuous (Dexcom G7 Manager Business Continuity) As directed blood-glucose sensor (Dexcom G7 Sensor device) As directed change every 10 days Breo Ellipta 200-25 mcg/dose (fluticasone furoate-vilanterol) 1 inh inhalation DAILY NS calcipotriene 0.005% topical BID PRN cholecalciferol (vitamin D3) (Vitamin D3) 50 mcg PO DAILY clonazepam 1 mg PO BID PRN compress.stocking,knee,reg,lrg As directed 20-30 mm HG disposable gloves As directed divalproex 500 mg PO BID empagliflozin (Jardiance) 25 mg PO DAILY escitalopram oxalate 20 mg PO DAILY fexofenadine 180 mg PO DAILY 90 days flash glucose scanning reader (Insception BiosciencesStyle Jared 2 [place]) As directed changes every 14 days flash glucose sensor (FreeStyle Jared 2 Sensor kit) As directed change every 14 days fluticasone propionate 50 mcg/actuation 2 sprays intranasal DAILY 90 days [incontinence wipes As directed] ipratropium bromide 2.5 mL inhalation Q6H PRN 30 days lancets (FreeStyle Lancets) As directed losartan 100 mg PO DAILY metformin 500 mg PO DAILY nebulizers (Aeroneb Go Nebulizer) As directed olopatadine 0.1% 1 drp ophthalmic (eye) BID Oxygen Home Use As directed pen needle, diabetic (BD Patti 2nd Gen Pen Needle) USE PARMINDER LO INDICADO DIRECTED INJECT ONCE A DAY quetiapine 100 mg PO BEDTIME [sanitary pads As directed] Tresiba FlexTouch U-100 (insulin degludec) 22 units (0.22 mL) subcut BEDTIME NS triamcinolone acetonide 0.5% 1 appl topical DAILY 14 days Do you need a note to return to daycare/school/sports/work: No HPI COPD HPI Details THIS IS A 52 YEARS OLD VERY PLEASANT FEMALE WHO IS MORBIDLY OBESE. HOME-BASED SLEEP STUDY DID NOT SHOW EVIDENCE OF OBSTRUCTIVE SLEEP APNEA. OXYGENATION WAS OKAY WITH O2 AT 1 L/MINUTE. SHE CONTINUES TO HAVE FREQUENT BOUTS OF COUGHS, SOME NASAL CONGESTION AND SHORTNESS OF BREATH ON WALKING AROUND. SHE USES O2 2 L/MINUTE DURING THE DAYTIME. SHE IS QUESTIONING IF SHE CAN COME OFF THE OXYGEN. HOWEVER 6 MINUTES WALK LONG ON HER LAST VISIT, CONFIRMS THAT SHE QUICKLY DESATURATES WHEN AND WALKING. SHE IS NOT ABLE TO DO MUCH EXERCISE SO IS HARD FOR HER TO LOSE MORE WEIGHT. [facility]LY [facility] Medical History Witnessed apneic spells Eczema Hordeolum externum left eye, unspecified eyelid Obesity Hypoxemia Headache History of acute respiratory distress syndrome (ARDS) Persistent insomnia Respiratory failure with hypoxia Pneumonia due to severe acute respiratory syndrome coronavirus 2 (SARS-CoV-2) COVID-19 virus infection Cavitary lesion of lung Obesity (BMI 30-39.9) Anxiety and depression Hypersomnia Acute neck sprain Post covid-19 condition, unspecified Restrictive lung disease Lower extremity edema Pneumonia COVID-19 virus infection Diabetic nephropathy associated with type 2 diabetes mellitus Diabetic neuropathy associated with type 2 diabetes mellitus Acute meniscal tear of right knee Right thyroid nodule Psoriasis Hypertension Type 2 diabetes mellitus with hyperglycemia Hypercholesterolemia Osteoarthritis Insomnia GERD (gastroesophageal reflux disease) Diabetic nephropathy Bilateral carpal tunnel syndrome Surgical History History of D&C History of cholecystectomy History of section History of tubal ligation Family History Father Medical history unknown Mother Diabetes Hypertension Maternal Grandmother Pancreatic cancer Maternal Aunt Breast cancer Sister Breast cancer Social History Household Members: Family Housing: Apartment Do you presently have visiting nurse or other home services: No Alcohol intake: never Patient Tobacco Use Status: Never used Tobacco e-Cigarette/Vaping Use: Never Used Second Hand Smoke Exposure: Yes service: No Current occupational status: disabled Cognitive needs: No Hearing needs: No Vision needs: No Review of Systems Const All systems reviewed & are unremarkable except as noted in HPI and below Eyes Reports no additional complaints ENT Reports no additional complaints Card Denies chest pain, Denies irregular heart rhythm and Denies leg edema Resp Reports as per HPI GI Reports no additional complaints Reports no additional complaints Musc Reports abnormal gait (WEAK AND SOMETIME HAS TO USE A CANE) and Reports back pain Skin/Breast Reports system reviewed and no additional complaints, except as documented Neuro Reports abnormal gait (WEAK AND SOMETIME HAS TO USE A CANE) Psych Reports no additional complaints Physical Exam Vital Signs: Last Vital Signs Pulse 76 04/03/23 09:19 BP 130/84 04/03/23 09:19 Pulse Ox 96 04/03/23 09:19 Oxygen Delivery Method Nasal Cannula 04/03/23 09:19 Oxygen Flow Rate 2 04/03/23 09:19 BMI result Body Mass Index 40.7 Const General: healthy appearing, comfortable, no acute distress, alert and awake Orientation/consciousness: patient oriented x3 HEENT Head: Yes normal to inspection General nose exam: No nasal polyps present and No nasal discharge present Face and sinus: Yes sinuses nontender Mouth: oropharynx normal Throat: Yes posterior oropharynx normal Eyes General: appearance normal, both eyes and all related structures Neck Neck: Yes normal visual inspection, Yes no lymphadenopathy, Yes trachea midline and Yes no JVD Thyroid: Thyroid normal Chest Chest palpation & inspection: normal inspection of the chest, normal palpation of entire chest wall and no tenderness Resp Other: PERCUSSION NOTE IS RESONANT, EXCEPT OVER THE BASILAR AREAS WHERE IT IS SOMEWHAT DIMINISHED DUE TO OBESITY .. BREATH SOUNDS ARE DECREASED OVER THE LOWER LOBES BUT CLEAR . NO DEFINITE CREPITATIONS OR WHEEZES ARE HEARD . Cardio Palpation: normal PMI Rate: regular rate Rhythm: regular rhythm Heart sounds: no gallops and no murmurs Peripheral pulses: Peripheral pulses 2+ throughout GI Palpation (GI): Soft to palpation, nontender, No hepatosplenomegaly present, no masses and Other GI palpation findings present (ABDOMEN IS MODERATELY OBESE) Auscultation: normal bowel sounds Back/Spine/Pelvis Thoracic/Lumbar Spine: thoracic and lumbar spine normal to inspection and thoraco-lumbar ROM limited Skin General skin exam: no rashes or lesions noted Neuro General: patient oriented x3, No gait normal (IMPAIRED DUE TO WEAKNESS OF THE LOWER EXTREMITIES, WHEELCHAIR TO WALKER.) and no focal motor deficits Cranial nerves: Yes CN's II-XII intact bilaterally Extrem General: Yes normal to inspection, Yes no clubbing, cyanosis or edema and Yes no calf tenderness Psych Appearance: grossly normal and well kempt Speech and movement: Normal speech and movement present Assessment & Plan Assessment & Plan (1) Obesity: Comment: SHE IS MORBIDLY OBESE. HAS NOT LOST ANY MORE WEIGHT . Luckily her home-based sleep study was negative for sleep apnea. Code(s): E66.9 - Obesity, unspecified Qualifiers: Obesity type: due to excess calories Obesity classification: adult class 3 (BMI >= 40) Serious obesity comorbidity presence: with serious comorbidity Body mass index: BMI 40.0-44.9 Qualified Code(s): E66.01 - Morbid (severe) obesity due to excess calories; Z68.41 - Body mass index [BMI]40.0-44.9, adult Plan: DIETARY INSTRUCTIONS REPEATED. ADVISED TO DO MORE WALKING EVEN IN THE HOUSE ON A DAILY BASIS. (2) Restrictive lung disease: Comment: CONFIRMED BY COMPLETE PFT SHE DOES HAVE SEVERE RESTRICTIVE PULMONARY DISORDER, Code(s): J98.4 - Other disorders of lung Plan: TX: STRESSED THAT SHE SHOULD DO DEEP BREATHING EXERCISES EVERY 2 HOURS REGULARLY. (3) Post covid-19 condition, unspecified: Comment: PATIENT CONTINUES TO HAVE, RESIDUAL INTERSTITIAL LUNG DISEASE, POST COVID. WITH SIGNIFICANT RESPIRATORY INSUFFICIENCY, AND REQUIRING O2 SUPPLEMENTATION. LAST CT SCAN OF THE CHEST in JUNE 2022 SHOWS CONTINUED RESOLUTION OF THE INTERSTITIAL DISEASE IN THE LOWER LOBES . NOW SHE HAS ONLY MINIMAL FIBROTIC STRANDS OVER THE BASES . Code(s): U09.9 - Post COVID-19 condition, unspecified Plan: ONCE AGAIN EXPLAINED TO THE PATIENT. ADVISE THAT SHE CONTINUE DOING DEEP BREATHING EXERCISES AND ALSO SHE NEEDS OXYGEN SUPPLEMENTATION. Coding Level of Care Code Est Pt Level 4 (70561) Diagnoses Class 3 severe obesity due to excess calories with serious comorbidity and body mass index (BMI) of 40.0 to 44.9 in adult E66.01; Z68.41 Obesity type: due to excess calories Obesity classification: adult class 3 (BMI >= 40) Serious obesity comorbidity presence: with serious comorbidity Body mass index: BMI 40.0-44.9 Restrictive lung disease J98.4 Post covid-19 condition, unspecified U09.9
== END 2023-04-03 09:30 | disposition home or self-care (01) ==
PROVIDERS: PCP Internal Medicine; Visit Provider Internal Medicine
DX: E66.01 Morbid (severe) obesity due to excess calories (principal); Z68.41 Body mass index [BMI] 40.0-44.9, adult; J98.4 Other disorders of lung; U09.9 Post COVID-19 condition, unspecified
CPT/HCPCS: 99214

== ENCOUNTER 2023-05-17 15:13 | Outpatient (AMB) | payer OTHER, SELFPAY ==
--- NOTE | 2023-05-17 15:23 | A.OFFPC_ITS ---
Vital Signs 05/17/23 15:24 Height 5 ft 2 in Weight 218 lb BMI 39.9 BP 130/90 H Blood Pressure Location Lt brachial Position Sitting Pulse 63 Pulse Source Pulse Oximeter Pulse Oximetry (%) 96 Oxygen Delivery Method Nasal Cannula Oxygen Flow Rate 2 Intake Visit Reasons: Biopsy of left eye on 05/27/2023 Intake Note: Patient is here for a Pre-op for lateral orbitotomy scheduled with Dr. Noriega [facility] on 05/27/2023 Panel Raiser Operator Required: No Allergies egg Allergy (Unknown, Verified 05/17/23 15:26) throat swells up lisinopril Allergy (Unknown, Verified 05/17/23 15:26) Unknown milk Allergy (Unknown, Verified 05/17/23 15:26) throat swells up [facility] Adverse Reaction (Intermediate, Verified 05/17/23 15:26) pancreatitis pioglitazone Adverse Reaction (Unknown, Verified 05/17/23 15:26) Swelling Medication List - Last Reconciled 05/17/23 by Cally Rizvi MD albuterol sulfate 90 mcg/actuation (Ventolin HFA) 4 puffs inhalation Q3H PRN amlodipine 5 mg PO DAILY apremilast (Otezla) 30 mg PO BID atenolol 100 mg PO DAILY atorvastatin 10 mg PO QPM betamethasone dipropionate 0.05% topical blood pressure monitor (Blood Pressure Kit) As directed blood sugar diagnostic (FreeStyle Lite Strips) DIRECTED TESTS 4X/DAY blood-glucose meter (FreeStyle [place] Lite kit) As directed blood-glucose meter,continuous (Dexcom G7 Logging Engineer) As directed blood-glucose sensor (Dexcom G7 Sensor device) As directed change every 10 days Breo Ellipta 200-25 mcg/dose (fluticasone furoate-vilanterol) 1 inh inhalation DAILY NS calcipotriene 0.005% topical BID PRN cholecalciferol (vitamin D3) (Vitamin D3) 50 mcg PO DAILY clonazepam 1 mg PO BID PRN compress.stocking,knee,reg,lrg As directed 20-30 mm HG disposable gloves As directed divalproex 500 mg PO BID empagliflozin (Jardiance) 25 mg PO DAILY escitalopram oxalate 20 mg PO DAILY fexofenadine 180 mg PO DAILY 90 days flash glucose scanning reader ([employer] Jared 2 [place]) As directed changes every 14 days flash glucose sensor (MonsciergeStyle Jared 2 Sensor kit) As directed change every 14 days fluticasone propionate 50 mcg/actuation 2 sprays intranasal DAILY 90 days [incontinence wipes As directed] ipratropium bromide 2.5 mL inhalation Q6H PRN 30 days lancets (FreeStyle Lancets) As directed losartan 100 mg PO DAILY metformin 500 mg PO DAILY nebulizers (Aeroneb Go Nebulizer) As directed olopatadine 0.1% 1 drp ophthalmic (eye) BID Oxygen Home Use As directed pen needle, diabetic (BD Patti 2nd Gen Pen Needle) USE PARMINDER LO INDICADO DIRECTED INJECT ONCE A DAY quetiapine 100 mg PO BEDTIME [sanitary pads As directed] Tresiba FlexTouch U-100 (insulin degludec) 22 units (0.22 mL) subcut BEDTIME NS triamcinolone acetonide 0.5% 1 appl topical DAILY 14 days Tobacco use date assessed: 05/17/23 Dental Screening Dental Screen Date: 05/17/23 HPI Biopsy of left eye on 05/27/2023 HPI Details 52-year-old obese female with post COVID pulmonary problem diabetes mellitus GERD hypercholesterolemia hypertension and generalized anxiety disorder last seen in March 2023. Patient is here for preoperative evaluation for an eye surgery. Her mammogram is up-to-date, declined colonoscopy. Patient follows up with Pulmonary continues to be an oxygen. PAtient is going to have L eyelid surgery. will undergo general anesthesia 05/27/2023 [facility] Medical History Witnessed apneic spells Eczema Hordeolum externum left eye, unspecified eyelid Obesity Hypoxemia Headache History of acute respiratory distress syndrome (ARDS) Persistent insomnia Respiratory failure with hypoxia Pneumonia due to severe acute respiratory syndrome coronavirus 2 (SARS-CoV-2) COVID-19 virus infection Cavitary lesion of lung Obesity (BMI 30-39.9) Anxiety and depression Hypersomnia Acute neck sprain Post covid-19 condition, unspecified Restrictive lung disease Lower extremity edema Pneumonia COVID-19 virus infection Diabetic nephropathy associated with type 2 diabetes mellitus Diabetic neuropathy associated with type 2 diabetes mellitus Acute meniscal tear of right knee Right thyroid nodule Psoriasis Hypertension Type 2 diabetes mellitus with hyperglycemia Hypercholesterolemia Osteoarthritis Insomnia GERD (gastroesophageal reflux disease) Diabetic nephropathy Bilateral carpal tunnel syndrome Surgical History History of D&C History of cholecystectomy History of section History of tubal ligation Family History Father Medical history unknown Mother Diabetes Hypertension Maternal Grandmother Pancreatic cancer Maternal Aunt Breast cancer Sister Breast cancer Social History Household Members: Family Housing: Apartment Do you presently have visiting nurse or other home services: No Alcohol intake: never Patient Tobacco Use Status: Never used Tobacco e-Cigarette/Vaping Use: Never Used Second Hand Smoke Exposure: Yes service: No Current occupational status: disabled Cognitive needs: No Hearing needs: No Vision needs: No Questionnaire Thrive Questionnaire Date Thrive assessed: 03/27/23 AUDIT C Alcohol Use Questionnaire (AUDIT-C) 1. How often do you have a drink containing alcohol?: Never 3. How often do you have six or more drinks on one occasion?: Never Total Score: 0 NANCY-7 AMB Questionnaire NANCY-7 Date NANCY - 7 assessed: 03/27/23 Source: Developed by Drs. Delvin Head, Ashley Rahman, Vinod Manzanares and colleagues, with an educational jo-ann from [employer]. Review of Systems Const Denies poor appetite and Denies weakness Eyes Denies no additional complaints ENT Reports Normal hearing present, Denies dizziness, Denies nasal congestion, Denies tinnitus and Denies sore throat Card Denies chest pain, Denies syncope, Denies rapid heart rate and Denies dyspnea Resp Denies cough and Denies dyspnea GI Denies change in stool character, Reports constipation, Denies diarrhea, Denies nausea and Denies vomiting Denies urinary frequency, Denies difficulty voiding and Denies dysuria Neuro Reports Normal hearing present, Denies confusion, Denies dizziness, Denies syncope and Denies weakness Psych Denies confusion Physical exam (Primary Care) Vital Signs: Last Vital Signs Pulse 63 05/17/23 15:24 BP 130/90 H 05/17/23 15:24 Pulse Ox 96 05/17/23 15:24 Oxygen Delivery Method Nasal Cannula 05/17/23 15:24 Oxygen Flow Rate 2 05/17/23 15:24 BMI result Body Mass Index 39.9 Tobacco/Smoking Status: Tobacco use Status Tobacco use date assessed 05/17/23 05/17/23 15:27 Patient Tobacco Use Status Never used Tobacco 05/17/23 15:25 e-Cigarette/Vaping Use Never Used 05/17/23 15:25 Thrive Assessment: Date of Thrive Assessment Date Thrive assessed 03/27/23 05/17/23 15:25 Const General: No confusion Orientation/consciousness: No confusion Eyes Conjunctivae: conjunctivae normal Resp Auscultation: clear to auscultation bilaterally Cardio Rate: regular rate Rhythm: regular rhythm GI Inspection: Yes normal to inspection Neuro General: No confusion Cranial nerves: Yes Normal hearing present Extrem General: Yes normal to inspection and No edema Assessment and Plan Assessment & Plan (1) Preop exam for internal medicine: Code(s): Z01.818 - Encounter for other preprocedural examination Plan: Blood Work and EKG requested. Discussed with the patient that NSAIDs like ibuprofen , Aleve, Motrin, should be held 1 week before the procedure. Discussed with the patient also the importance of taking blood pressure medication prior to the procedure that is for the losartan, amlodipine and atenolol. May use the inhalers and clonazepam. As for the insulin the night before to take only half the dose which is going to be 11 units. (2) Type 2 diabetes mellitus with hyperglycemia: Comment: Dr. Turner Code(s): E11.65 - Type 2 diabetes mellitus with hyperglycemia Plan: Decrease the amount of carbohydrate intake, pasta, bread, rice and potatoes are all sugar and that is aside from all the sweet stuff, remember that fruits are good but they are Sweet also. Hemoglobin A1c goal of less than 6.5. Presently on Jardiance 25 mg once a day metformin 500 mg once a day and Tresiba 22 units at bedtime. Patient will need to be on oxygen and keep sats more than 90 (3) Post covid-19 condition, unspecified: Comment: PATIENT CONTINUES TO HAVE, RESIDUAL INTERSTITIAL LUNG DISEASE, POST COVID. WITH SIGNIFICANT RESPIRATORY INSUFFICIENCY, AND REQUIRING O2 SUPPLEMENTATION. LAST CT SCAN OF THE CHEST in JUNE 2022 SHOWS CONTINUED RESOLUTION OF THE INTERSTITIAL DISEASE IN THE LOWER LOBES . NOW SHE HAS ONLY MINIMAL FIBROTIC STRANDS OVER THE BASES . Code(s): U09.9 - Post COVID-19 condition, unspecified Plan: Continues to be on nasal cannula oxygen has the Breo, and albuterol p.r.n. (4) Restrictive lung disease: Comment: CONFIRMED BY COMPLETE PFT SHE DOES HAVE SEVERE RESTRICTIVE PULMONARY DISORDER, Code(s): J98.4 - Other disorders of lung Plan: Patient continues to follow-up with Pulmonary. (5) Obesity: Comment: SHE IS MORBIDLY OBESE. HAS NOT LOST ANY MORE WEIGHT . Luckily her home-based sleep study was negative for sleep apnea. Code(s): E66.9 - Obesity, unspecified Qualifiers: Obesity type: due to excess calories Obesity classification: adult class 3 (BMI >= 40) Serious obesity comorbidity presence: with serious comorbidity Body mass index: BMI 40.0-44.9 Qualified Code(s): E66.01 - Morbid (severe) obesity due to excess calories; Z68.41 - Body mass index [BMI]40.0- 44.9, adult Plan: Diet and exercise (6) GERD (gastroesophageal reflux disease): Code(s): K21.9 - Gastro-esophageal reflux disease without esophagitis Qualifiers: Esophagitis presence: without esophagitis Qualified Code(s): K21.9 - Gastro-esophageal reflux disease without esophagitis Plan: Avoid the foods that causes that usually spicy foods, tomato products, juices, coffee, soda and foods that your sensitive to. After eating do not lie down, allow 3-4 hours before in lie down. And keep the head of bed above 30 degrees to avoid the acid from going up. (7) Hypertension: Code(s): I10 - Essential (primary) hypertension Plan: Continue with blood pressure medication. Decrease salt intake and exercise on amlodipine 5 mg once a day atenolol 100 mg once a day losartan 100 mg once a day (8) Hypercholesterolemia: Code(s): E78.00 - Pure hypercholesterolemia, unspecified Plan: Avoid fried foods, chicken skin, eggs, butter margarine, pastries and meat. Be it pork or beef they have a lot of cholesterol patient takes atorvastatin 10 mg at bedtime. (9) Generalized anxiety disorder: Code(s): F41.1 - Generalized anxiety disorder Plan: Continue present medications Orders: Orders ECG 12 lead EKG Today Z01.818 - Encounter for other preprocedural examination Complete Blood Count Auto Diff Today Z01.818 - Encounter for other preprocedural examination Basic Metabolic Panel Today Z01.818 - Encounter for other preprocedural examination Coding Level of Care Code Est Pt Level 4 (68068) Diagnoses Preop exam for internal medicine Z01.818 Type 2 diabetes mellitus with hyperglycemia E11.65 Post covid-19 condition, unspecified U09.9 Restrictive lung disease J98.4 Class 3 severe obesity due to excess calories with serious comorbidity and body mass index (BMI) of 40.0 to 44.9 in adult E66.01; Z68.41 Obesity type: due to excess calories Obesity classification: adult class 3 (BMI >= 40) Serious obesity comorbidity presence: with serious comorbidity Body mass index: BMI 40.0-44.9 Gastroesophageal reflux disease without esophagitis K21.9 Esophagitis presence: without esophagitis Hypertension I10 Hypercholesterolemia E78.00 Generalized anxiety disorder F41.1
[2023-05-17 15:24] VITALS: BP 130/90; PULSE 63; O2SAT 96; BMI 39.9
== END 2023-05-17 16:39 | disposition home or self-care (01) ==
PROVIDERS: PCP Internal Medicine; Visit Provider Internal Medicine
DX: Z01.818 Encounter for other preprocedural examination (principal); E11.65 Type 2 diabetes mellitus with hyperglycemia; U09.9 Post COVID-19 condition, unspecified; J98.4 Other disorders of lung; K21.9 Gastro-esophageal reflux disease without esophagitis; I10 Essential (primary) hypertension; E78.00 Pure hypercholesterolemia, unspecified; F41.1 Generalized anxiety disorder
CPT/HCPCS: 99214

== ENCOUNTER 2023-05-20 07:38 | Outpatient (REF) | payer OTHER, SELFPAY ==
--- NOTE | 2023-05-20 07:50 | ECG_ITS ---
Test Reason : preop Blood Pressure : / mmHG Vent. Rate : 063 BPM Atrial Rate : 063 BPM P-R Int : 168 ms QRS Dur : 082 ms QT Int : 420 ms P-R-T Axes : 011 -16 002 degrees QTc Int : 429 ms Normal sinus rhythm Normal ECG When compared with ECG of 23-APR-2022 00:30, Premature ventricular complexes are no longer Present Criteria for Septal infarct are no longer Present Nonspecific T wave abnormality no longer evident in Anterior leads Referred By: Cally Rizvi Electronically Signed By:AUGUSTO GOMEZ MD
[2023-05-20 07:57] LABS: MANUAL DIFF FLAG NO
[2023-05-20 08:38] LABS: Basophils Absolute Auto 0.1 X10*3/uL (0.0-0.2); Basophils Percent Auto 0.8 % (0-2); Eosinophils Absolute Auto 0.2 X10*3/uL (0.0-0.4); Eosinophils Percent Auto 2.5 % (0-4); Hematocrit 42.4 % (37.0-47.0); Hemoglobin 13.4 g/dl (12.0-16.0); Imm Gran Abs Auto 0.04 X10*3/uL (0.00-0.03); Imm Gran Pct Auto 0.4 % (0.0-0.4); Lymphocytes Absolute Auto 1.9 X10*3/uL (1.2-4.9); Lymphocytes Percent Auto 19.3 % (20-40); Mean Corpuscular HGB Conc 31.6 g/dl (31.0-35.0); Mean Corpuscular Volume 85.5 fL (80.0-98.0); Mean Platelet Volume 11.5 fL (9.4-12.3); Monocytes Absolute Auto 0.8 X10*3/uL (0.1-1.2); Neutrophils Absolute Auto 6.7 x10*3/uL (2.0-8.3); Platelet Count 278 X10*3/uL (160-400); Red Blood Count 4.96 X10*6/uL (4.20-5.50); Red Cell Distribution Width 14.6 % (11.0-16.0); White Blood Count 9.7 X10*3/uL (4.8-10.8)
[2023-05-20 08:59] LABS: Anion Gap 12 (12-20); Blood Urea Nitrogen 17 mg/dL (9-16); Calcium 9.6 mg/dL (8.4-10.2); Carbon Dioxide 27 mmol/L (22-29); Chloride 106 mmol/L (96-108); Estimated Glomerular Filt Rate 44; Glucose Random 122 mg/dL (60-115); Potassium 3.4 mmol/L (3.3-5.1); Sodium 142 mmol/L (135-145)
== END 2023-05-20 07:39 | disposition home or self-care (01) ==
LOC: HO.LAB 07:38
PROVIDERS: Absent Provider Internal Medicine Endocrinology, Diabetes & Metabolism; PCP Internal Medicine; Visit Provider Internal Medicine
DX: Z01.818 Encounter for other preprocedural examination (principal)
CPT/HCPCS: 36415; 80048; 85025; 93005

== ENCOUNTER → 2023-05-20 07:50 | Outpatient (BNV) | payer OTHER, SELFPAY | PROVIDERS: Absent Provider Internal Medicine Endocrinology, Diabetes & Metabolism; PCP Internal Medicine; Visit Provider Internal Medicine Cardiovascular Disease | DX: E11.65 Type 2 diabetes mellitus with hyperglycemia (principal) | CPT/HCPCS: 93010 ==

== ENCOUNTER 2023-05-27 06:53 | Day surgery (SDC) | payer OTHER, SELFPAY ==
[2023-05-20 16:27] VITALS: BMI 39.9
[2023-05-21 16:11] VITALS: BMI 39.9
[2023-05-27] VITALS (7 sets, daily range): BP systolic 137–179; BP diastolic 76–110; PULSE 62–78; RESP 18; TEMP 36.1–36.6; O2SAT 92–100
[2023-05-27 07:20] LABS: Glucose, Whole Blood 123 mg/dL (60-115)
--- NOTE | 2023-05-27 08:18 | HO.ANESPROP2 ---
HPI - Anesthesia Eval Consult details Narrative: Excisional biopsy left eye orbit Anesthesia Pre-Procedure Meds Is the patient on any of the following meds?: Any other SGL-1 drugs or drugs that delay gastric emptying If Yes to any meds - educate patient: Pt education - increased risk of aspiration and Pt education - possibility of cancelled proc at provider's discretion PMFSH Active Problems Active Problems: All Active Problems (Updated 05/17/23 @ 16:18 by Cally Rizvi MD) Preop exam for internal medicine (Acute) Hand numbness (Acute) Seborrheic dermatitis (Acute) Post covid-19 condition, unspecified (Acute) Hypercholesterolemia (Acute) Right shoulder pain (Acute) Restrictive lung disease (Acute) Hypertension (Acute) Generalized anxiety disorder (Acute) Type 2 diabetes mellitus with hyperglycemia (Acute) Annual physical exam (Acute) Peripheral vascular disease (Acute) Colonoscopy refused (Acute) Obesity (Acute) Diabetic nephropathy associated with type 2 diabetes mellitus (Acute) Diabetic neuropathy associated with type 2 diabetes mellitus (Acute) Nontoxic multinodular goiter (Acute) Psoriasis (Acute) Osteoarthritis (Acute) Insomnia (Acute) GERD (gastroesophageal reflux disease) (Acute) Past Medical History Medical History Witnessed apneic spells Eczema Hordeolum externum left eye, unspecified eyelid Obesity Hypoxemia Headache History of acute respiratory distress syndrome (ARDS) Persistent insomnia Respiratory failure with hypoxia Pneumonia due to severe acute respiratory syndrome coronavirus 2 (SARS-CoV-2) COVID-19 virus infection Cavitary lesion of lung Obesity (BMI 30-39.9) Anxiety and depression Hypersomnia Acute neck sprain Post covid-19 condition, unspecified Restrictive lung disease Lower extremity edema Pneumonia COVID-19 virus infection Diabetic nephropathy associated with type 2 diabetes mellitus Diabetic neuropathy associated with type 2 diabetes mellitus Acute meniscal tear of right knee Right thyroid nodule Psoriasis Hypertension Type 2 diabetes mellitus with hyperglycemia Hypercholesterolemia Osteoarthritis Insomnia GERD (gastroesophageal reflux disease) Diabetic nephropathy Bilateral carpal tunnel syndrome Family History Family History Father Medical history unknown Mother Diabetes Hypertension Maternal Grandmother Pancreatic cancer Maternal Aunt Breast cancer Sister Breast cancer Family history of problems with anesthesia: No Surgical History Surgical History History of D&C History of cholecystectomy History of section History of tubal ligation History of Problems with Anesthesia: No Social History Social History Household Members: Family Housing: Apartment Are you a primary acute care nursing assistant to a significant other at home: No Do you presently have visiting nurse or other home services: No Alcohol intake: never Patient Tobacco Use Status: Never used Tobacco e-Cigarette/Vaping Use: Never Used Second Hand Smoke Exposure: Yes Use of substances other than those prescribed or required for medical reasons: No Have you been hit, kicked, punched, or otherwise hurt by someone within the past year? If so, by whom?: No Are you DNR?: No Advance Directives: No Advance Directives Information Provided: Yes Advance Directives on File: No Recently lost weight without trying: No service: No Current occupational status: disabled Cognitive needs: No Hearing needs: No Vision needs: No Meds Allergies Allergy/AdvReac Type Severity Reaction Status Date / Time egg Allergy Severe throat Verified 05/27/23 07:20 swells up milk Allergy Severe throat Verified 05/27/23 07:20 swells up avocado Allergy Intermediate lip Verified 05/27/23 07:20 swelling lisinopril Allergy Unknown Unknown Verified 05/27/23 07:20 [facility] AdvReac Intermediate pancreatiti Verified 05/27/23 07:20 s pioglitazone AdvReac Intermediate Swelling Verified 05/27/23 07:20 Active Medications: Current Medications Povidone Iodine (Povidone Iodine 5 % Ophth Soln 30 Ml Bottle) 1 appl EYE-LEFT PREOP PRN PRN Reason: Pre-Op Surgical Implant Prophy Home Medications Medication Instructions Recorded Confirmed Last Taken Type divalproex 500 mg tablet,delayed 500 mg PO BID 03/31/20 05/17/23 11/18/20 History release escitalopram oxalate 20 mg tablet 20 mg PO DAILY 03/31/20 05/17/23 11/18/20 History clonazepam 1 mg tablet 1 mg PO BID PRN 03/20/21 05/17/23 Unknown History betamethasone dipropionate 0.05 % topical 06/21/22 05/17/23 Unknown History topical ointment calcipotriene 0.005 % topical topical BID PRN 06/21/22 05/17/23 Unknown History ointment quetiapine 100 mg tablet 100 mg PO BEDTIME 06/21/22 05/17/23 Unknown History lancets 28 gauge (FreeStyle 08/15/22 05/17/23 Unknown History Lancets) Oxygen Home Use 01/02/23 05/17/23 Unknown History apremilast 30 mg tablet (Otezla) 30 mg PO BID 01/11/23 05/17/23 Unknown History Exam Height,Weight and Vital Signs: Height 5 ft 2 in Weight 98.883 kg Last Vital Signs Temp 97.8 F 05/27/23 07:21 Pulse 62 05/27/23 07:21 Resp 18 05/27/23 07:21 BP 137/76 05/27/23 07:21 Pulse Ox 100 05/27/23 07:21 O2 Del Method Nasal Cannula 05/27/23 07:21 O2 Flow Rate 2 05/27/23 07:21 Pertinent Lab Results Pertinent Lab Results: Laboratory Tests 05/27/23 07:16 POC Glucose 123 H Airway Mallampati Class: III TM Dist: >3cm Neck ROM: Full Loose/Missing/Broken Teeth: Yes (poor dentition, multiple teeth missing upper and lower globally) Heart: rrr+[id number] Lungs: cta b/l Assessment and Plan Assessment Anesthesia Assessment: Anesthesia Plan Discussed and Chart Reviewed Final Anesthetic Review Family History of Problems with Anesthesia: No History of Problems with Anesthesia: No NPO: Yes ASA Class: III Final Preanesthetic Review: No Changes in Pt Med Stat, Meds/Allgs Chart Reviewed, Consent Obtained/Reviewed and Anes Risks/Benef Reviewed Patient Risk: Intermediate Procedure Risk: Intermediate Assessment/Block/Sedation in SS: Assess/Block/Sedation-SS Anesthetic Plan Anesthetic Plan: GA Disposition: Standard PACU
[2023-05-27] MEDS: Lactated Ringers 500 ML 50 ML IV (08:22)
--- NOTE | 2023-05-27 09:28 | MHC.SHP ---
Pre-Procedural Eval Section A - 24 Hr Update-Section A only Date of Service: 05/27/23 The patient is an INPATIENT: No Changes since office visit: No Cold of Flu in the past 2 weeks, No New Medical Problems, No Changes in Medication and No Patient answered all questions The patient has been examined within 24 hours of the surgical procedure. The History & Physical has been completed within 30 days and I have reviewed it.: Yes Section B - Complete if H&P > 30 days Chief Complaint: Other benign neoplasm of skin of left lower eyelid Allergies: Allergies Allergy/AdvReac Type Severity Reaction Status Date / Time egg Allergy Severe throat Verified 05/27/23 07:20 swells up milk Allergy Severe throat Verified 05/27/23 07:20 swells up avocado Allergy Intermediate lip Verified 05/27/23 07:20 swelling lisinopril Allergy Unknown Unknown Verified 05/27/23 07:20 dulaglutide [From [facility]] AdvReac Intermediate pancreatiti Verified 05/27/23 07:20 s pioglitazone AdvReac Intermediate Swelling Verified 05/27/23 07:20 Plan Diagnosis/Plan: Unchanged I have reviewed the history and physical and performed a pertinent physical examination on my patient. No changes have occurred unless specified. Time Spent With Patient Time: Total time managing care of this patient today ____ minutes.
[2023-05-27] MEDS: fentaNYL citrate/PF 100 MCG/2 ML VIAL 25 MCG IVPUSH ×2 (11:15→11:20)
--- NOTE | 2023-05-27 12:13 | OP_ITS ---
DATE OF SERVICE: 05/27/2023 SURGEON: Kevin Cortes MD PREOPERATIVE DIAGNOSIS: POSTOPERATIVE DIAGNOSIS: PROCEDURE PERFORMED: ESTIMATED BLOOD LOSS: COMPLICATIONS: ANESTHESIA: General. ASSISTANTS: SPECIMENS: INDICATION FOR SURGERY: Prolapsed lacrimal duct. DESCRIPTION OF PROCEDURE: After obtaining informed consent, the patient was brought to the operating room suite and placed in the supine position. After being placed under general anesthesia, the left eye was prepped and draped in the usual sterile fashion. Attention was directed laterally where an incision was created to explore the region at the lateral orbit. A #15 blade was then utilized to extend the incision to the upper lid. A 5-0 suture was then utilized and passed superficially through the lacrimal gland's body and it was brought up superiorly to the exit the skin incision along the brow. The second arm of the double arm suture was also passed superficially through the body of the lacrimal gland and once again the suture was passed through an incision site along the superior brow. The suture was then passed through the periosteum tissue to the other incision. The suture was tightened to resuspend the prolapsed gland superiorly and tied in place with a double arm suture. The skin incisions were then closed with 6-0 fast aborbingsuture. Erythromycin was placed on the wound and the patient tolerated the procedure well and will be seen in followup. Kevin Cortes MD KH/MODL / [id number] MTDD
[2023-05-27 12:27] LABS: Glucose, Whole Blood 169 mg/dL (60-115)
== END 2023-05-27 13:17 | disposition home or self-care (01) ==
PROVIDERS: PCP Internal Medicine; Visit Provider Ophthalmology
PROC: (CPT 68505; principal; 2023-05-27 09:00)
DX: H04.002 Unspecified dacryoadenitis, left lacrimal gland (principal); D23.122 Other benign neoplasm of skin of left lower eyelid, including canthus; I10 Essential (primary) hypertension; E11.9 Type 2 diabetes mellitus without complications; E78.5 Hyperlipidemia, unspecified; F32.A Depression, unspecified; Z79.84 Long term (current) use of oral hypoglycemic drugs; Z79.899 Other long term (current) drug therapy
CPT/HCPCS: 68505; 82947; 88304; 88305; 88312; J1100; J2250; J2405; J2704; J3010

== ENCOUNTER 2023-06-25 09:13 | Outpatient (AMB) | payer OTHER, SELFPAY ==
--- NOTE | 2023-06-25 09:34 | A.OFFVIS_ITS ---
Intake Intake Visit Reasons: DM Lockstitch Waistline Joiner Required: Yes Lockstitch Waistline Joiner Language: Clinical Trials Specialist Name: Consuelo [facility] Information Interpreted: non-clinical & clinical Accompanied by: Self / Same As Patient Allergies egg Allergy (Severe, Verified 05/27/23 07:20) throat swells up milk Allergy (Severe, Verified 05/27/23 07:20) throat swells up avocado Allergy (Intermediate, Verified 05/27/23 07:20) lip swelling lisinopril Allergy (Unknown, Verified 05/27/23 07:20) Unknown dulaglutide [From [facility]] Adverse Reaction (Intermediate, Verified 05/27/23 07:20) pancreatitis pioglitazone Adverse Reaction (Intermediate, Verified 05/27/23 07:20) Swelling HPI Comprehensive Diabetes Asmnt Most Recent Diabetes Results: Microalb/Creat Ratio 251.5 ug/mg cr (<30) H 12/12/22 Cholesterol 192 mg/dL (<200) 03/27/23 HDL Cholesterol 49 mg/dL (>40) 03/27/23 Triglycerides 186 mg/dL (<150) H 03/27/23 Creatinine 1.26 mg/dL (0.5-1.4) 05/20/23 Blood Urea Nitrogen 17 mg/dL (9-16) H 05/20/23 Sodium 142 mmol/L (135-145) 05/20/23 Potassium 3.4 mmol/L (3.3-5.1) 05/20/23 Chloride 106 mmol/L (96-108) 05/20/23 Carbon Dioxide 27 mmol/L (22-29) 05/20/23 Calcium 9.6 mg/dL (8.4-10.2) 05/20/23 AST 21 U/L (5-31) 03/27/23 ALT 35 U/L (0-31) H 03/27/23 Total Protein 8.2 g/dL (6.5-8.0) H 03/27/23 Albumin 4.3 g/dL (3.5-5.0) 03/27/23 [facility] Medical History Witnessed apneic spells Eczema Hordeolum externum left eye, unspecified eyelid Obesity Hypoxemia Headache History of acute respiratory distress syndrome (ARDS) Persistent insomnia Respiratory failure with hypoxia Pneumonia due to severe acute respiratory syndrome coronavirus 2 (SARS-CoV-2) COVID-19 virus infection Cavitary lesion of lung Obesity (BMI 30-39.9) Anxiety and depression Hypersomnia Acute neck sprain Post covid-19 condition, unspecified Restrictive lung disease Lower extremity edema Pneumonia COVID-19 virus infection Diabetic nephropathy associated with type 2 diabetes mellitus Diabetic neuropathy associated with type 2 diabetes mellitus Acute meniscal tear of right knee Right thyroid nodule Psoriasis Hypertension Type 2 diabetes mellitus with hyperglycemia Hypercholesterolemia Osteoarthritis Insomnia GERD (gastroesophageal reflux disease) Diabetic nephropathy Bilateral carpal tunnel syndrome Surgical History History of D&C History of cholecystectomy History of section History of tubal ligation Family History Father Medical history unknown Mother Diabetes Hypertension Maternal Grandmother Pancreatic cancer Maternal Aunt Breast cancer Sister Breast cancer Social History Household Members: Family Housing: Apartment Are you a primary health care facility administrator to a significant other at home: No Do you presently have visiting nurse or other home services: No Alcohol intake: never Patient Tobacco Use Status: Never used Tobacco e-Cigarette/Vaping Use: Never Used Second Hand Smoke Exposure: Yes service: No Current occupational status: disabled Cognitive needs: No Hearing needs: No Vision needs: No Assessment & Plan Assessment & Plan (1) Type 2 diabetes mellitus with hyperglycemia: Comment: Dr. Turner Code(s): E11.65 - Type 2 diabetes mellitus with hyperglycemia Plan: Learning objectives: The patient was provided with verbal and written education on the following topics as outlined below. Assess patient education level/literacy/barriers Patient questions/concerns, patient reports she is lost her Dexcom G7 safety representative, has not been testing glucose numbers. Reports that she spoke to somebody here in the office approximately 2 months ago, the instructed her to reduce Tresiba 22 units to Tresiba 11 units due to patient reported hypoglycemia. However, do not see notes regarding this. Patient does have a note from May 2023 PCP, that recommended to reduce Tresiba to 11 units prior to a procedure on her eye. Patient is wondering what she should be taking for her Tresiba now. Explained to patient that we would need more it glucose data to recommend to change any insulin doses. Patient was agitated by this answer. Also mentioned other changes to diabetes medication made by PCP. Instructed patient if she has medication questions from PCP visit she would have to follow-up with him. Patient does have upcoming appointment with Dr. Mas on 08/20/2023. Instructed patient to reinitiate CGM, so at that visit Dr. Mas has glucose data to help with medication adjustments. The patient met all learning objectives and was able to verbalize understanding and provide teach back of education topics discussed . The patient was provided with the opportunity to ask questions and all questions were answered. Topics covered in today?s session included: Medications (If applicable) * Name of medication? * Dosing/administration instructions? * Mechanism of action? * Potential side effects? * Potential adverse reaction and appropriate treatment? * Review onset, peak, duration Assess for concerns re: insurance coverage, cost, barriers to compliance Insulin/Injectables (If applicable) * Storage/care of insulin?? * Injection sites? * Site rotation? * Onset, peak, duration * Drawing up insulin? * Injecting insulin/other injectables? * Sharps disposal Continuous blood glucose monitoring (if applicable) Hypoglycemia and Hyperglycemia * Signs and symptoms? * Causes?? * Treatment? * Preventing hypoglycemia? * When to seek medical attention * Blood glucose targets and how you feel when your blood glucose is in and out of your target ranges. * Monitoring and knowing your A1C. * What can make blood glucose go up and down and preventing high and low blood glucose. * Review of blood sugar targets in expected goal range and outside of expected goal range. * Problem solving and preventing hyper/hypoglycemia. * Sick day management of diabetes. * Using blood sugar results in decision making process in managing diabetes. ?Patient was receptive to information provided and participated in the discussion. Asked?appropriate questions and demonstrated good understanding of the topics discussed.? ? Educational Materials: The patient was provided with the following written educational materials: Target Goal handout Patient Instructions: Reinitiate CGM Follow-up with community nutrition educator in 3 months Coding Level of Care Code Est Pt Level 1 (91779) Diagnoses Type 2 diabetes mellitus with hyperglycemia E11.65
== END 2023-06-25 10:17 | disposition home or self-care (01) ==
PROVIDERS: PCP Internal Medicine; Visit Provider Registered Nurse Diabetes Educator
DX: E11.65 Type 2 diabetes mellitus with hyperglycemia (principal)

== ENCOUNTER → 2023-06-25 09:13 | Outpatient (BNVA) | payer OTHER, SELFPAY | PROVIDERS: PCP Internal Medicine; Visit Provider Registered Nurse Diabetes Educator | DX: E11.65 Type 2 diabetes mellitus with hyperglycemia (principal) | CPT/HCPCS: 99211 ==

== ENCOUNTER 2023-07-09 15:40 | Outpatient (AMB) | payer OTHER, SELFPAY ==
[2023-07-09 15:44] VITALS: BP 146/90; PULSE 74; O2SAT 98; BMI 39.5
--- NOTE | 2023-07-09 15:44 | A.OFFPC_ITS ---
Vital Signs 3 07/09/23 15:44 Height 5 ft 2 in Weight 216 lb BMI 39.5 BP 146/90 H Blood Pressure Location Lt brachial Position Sitting Pulse 74 Pulse Source Pulse Oximeter Pulse Oximetry (%) 98 Oxygen Delivery Method Room Air Intake Visit Reasons: HTN , DM cholesterol Ripsaw Operator Required: No Advisory Intern: Not Required per policy Accompanied by: Self / Same As Patient Allergies egg Allergy (Severe, Verified 07/09/23 15:44) throat swells up milk Allergy (Severe, Verified 07/09/23 15:44) throat swells up avocado Allergy (Intermediate, Verified 07/09/23 15:44) lip swelling lisinopril Allergy (Unknown, Verified 07/09/23 15:44) Unknown dulaglutide [From [facility]] Adverse Reaction (Intermediate, Verified 07/09/23 15:44) pancreatitis pioglitazone Adverse Reaction (Intermediate, Verified 07/09/23 15:44) Swelling Tobacco use date assessed: 05/17/23 Dental Screening Dental Screen Date: 05/17/23 HPI HTN , DM cholesterol 2 HPI0 Details 52-year-old obese female with diabetes m ellitus post COVID-19 condition with restrictive lung disease GERD hypertension hypercholesterolemia generalized anxiety disorder last seen in May 2023. Patient's mammogram is up-to-date declined colonoscopy. Patient was seen here in May for preoperative evaluation. For lacrimal duct surgery L eye complains has L eyelid swelling and will be ff up -patient is also very congested, no fever- advised saline rinse and astepro PFSH Medical History Witnessed apneic spells Eczema Hordeolum externum left eye, unspecified eyelid Obesity Hypoxemia Headache History of acute respiratory distress syndrome (ARDS) Persistent insomnia Respiratory failure with hypoxia Pneumonia due to severe acute respiratory syndrome coronavirus 2 (SARS-CoV-2) COVID-19 virus infection Cavitary lesion of lung Obesity (BMI 30-39.9) Anxiety and depression Hypersomnia Acute neck sprain Post covid-19 condition, unspecified Restrictive lung disease Lower extremity edema Pneumonia COVID-19 virus infection Diabetic nephropathy associated with type 2 diabetes mellitus Diabetic neuropathy associated with type 2 diabetes mellitus Acute meniscal tear of right knee Right thyroid nodule Psoriasis Hypertension Type 2 diabetes mellitus with hyperglycemia Hypercholesterolemia Osteoarthritis Insomnia GERD (gastroesophageal reflux disease) Diabetic nephropathy Bilateral carpal tunnel syndrome Surgical History History of D&C History of cholecystectomy History of section History of tubal ligation Family History Father Medical history unknown Mother Diabetes Hypertension Maternal Grandmother Pancreatic cancer Maternal Aunt Breast cancer Sister Breast cancer Social History Household Members: Family Housing: Apartment Are you a primary healthcare administration intern to a significant other at home: No Do you presently have visiting nurse or other home services: No Alcohol intake: never Patient Tobacco Use Status: Never used Tobacco e-Cigarette/Vaping Use: Never Used Second Hand Smoke Exposure: Yes service: No Current occupational status: disabled Cognitive needs: No Hearing needs: No Vision needs: No Questionnaire Thrive Questionnaire Date Thrive assessed: 03/27/23 NANCY-7 AMB Questionnaire NANCY-7 Date NANCY - 7 assessed: 03/27/23 Source: Developed by Drs. Delvin Head, Ashley Rahman, Vinod Manzanares and colleagues, with an educational jo-ann from [employer]. Physical exam (Primary Care) Vital Signs: Last Vital Signs Pulse 74 07/09/23 15:44 BP 146/90 H 07/09/23 15:44 Pulse Ox 98 07/09/23 15:44 Oxygen Delivery Method Room Air 07/09/23 15:44 BMI result Body Mass Index 39.5 Tobacco/Smoking Status: Tobacco use Status Tobacco use date assessed 05/17/23 07/09/23 15:45 Patient Tobacco Use Status Never used Tobacco 07/09/23 15:45 e-Cigarette/Vaping Use Never Used 07/09/23 15:45 Thrive Assessment: Date of Thrive Assessment Date Thrive assessed 03/27/23 07/09/23 15:45 Const General: alert; No acute distress [facility] Head images: 2 1. L upper lid swelling with a palpable lump 2 cm Eyes Conjunctivae: conjunctivae normal Resp Auscultation: clear to auscultation bilaterally Cardio Rate: regular rate Rhythm: regular rhythm GI Inspection: Yes normal to inspection Extrem General: Yes normal to inspection and No edema Results AMB Hemoglobin A1c 2 AMB Hemoglobin A1c 7.5 % Last Edit by JENNIFER Sweeney on 07/09/23 16:36 Results Reviewed Results Reviewed: Laboratory Last Values Hgb A1c (Clinic) 7.5 % (4.0-6.0) H 07/09/23 16:23 Assessment and Plan Assessment & Plan (1) Type 2 diabetes mellitus with hyperglycemia: Comment: Dr. Turner Code(s): E11.65 - Type 2 diabetes mellitus with hyperglycemia Plan: Decrease the amount of carbohydrate intake, pasta, bread, rice and potatoes are all sugar and that is aside from all the sweet stuff, remember that fruits are good but they are Sweet also. Hemoglobin A1c goal of less than 6.5. Patient on Jardiance 25 mg once a day metformin 500 mg once a day Tresiba 22 units at bedtime (2) Post covid-19 condition, unspecified: Comment: PATIENT CONTINUES TO HAVE, RESIDUAL INTERSTITIAL LUNG DISEASE, POST COVID. WITH SIGNIFICANT RESPIRATORY INSUFFICIENCY, AND REQUIRING O2 SUPPLEMENTATION. LAST CT SCAN OF THE CHEST in JUNE 2022 SHOWS CONTINUED RESOLUTION OF THE INTERSTITIAL DISEASE IN THE LOWER LOBES . NOW SHE HAS ONLY MINIMAL FIBROTIC STRANDS OVER THE BASES . Code(s): U09.9 - Post COVID-19 condition, unspecified Plan: Continue to follow-up with Pulmonary presently on oxygen. (3) Hypertension: Code(s): I10 - Essential (primary) hypertension Plan: Continue with blood pressure medication. Decrease salt intake and exercise patient on losartan 100 mg once a day atenolol 100 mg once a day amlodipine 5 mg once a day (4) Obesity: Comment: SHE IS MORBIDLY OBESE. HAS NOT LOST ANY MORE WEIGHT . Luckily her home-based sleep study was negative for sleep apnea. Code(s): E66.9 - Obesity, unspecified Qualifiers: Obesity type: due to excess calories Obesity classification: adult class 3 (BMI >= 40) Serious obesity comorbidity presence: with serious comorbidity Body mass index: BMI 40.0-44.9 Qualified Code(s): E66.01 - Morbid (severe) obesity due to excess calories; Z68.41 - Body mass index [BMI]40.0- 44.9, adult Plan: Diet and exercise (5) GERD (gastroesophageal reflux disease): Code(s): K21.9 - Gastro-esophageal reflux disease without esophagitis Qualifiers: Esophagitis presence: without esophagitis Qualified Code(s): K21.9 - Gastro-esophageal reflux disease without esophagitis Plan: Avoid the foods that causes that usually spicy foods, tomato products, juices, coffee, soda and foods that your sensitive to. After eating do not lie down, allow 3-4 hours before in lie down. And keep the head of bed above 30 degrees to avoid the acid from going up. (6) Hypercholesterolemia: Code(s): E78.00 - Pure hypercholesterolemia, unspecified Plan: Avoid fried foods, chicken skin, eggs, butter margarine, pastries and meat. Be it pork or beef they have a lot of cholesterol LDL goal of less than 100 and triglyceride of less than 150 on atorvastatin 10 mg once a day (7) Nasal congestion: Code(s): R09.81 - Nasal congestion Plan: advised to stop flonase. start astepro over the counter and uses nasal saline rinse (8) Swollen eyelid: Comment: left Code(s): H02.849 - Edema of unspecified eye, unspecified eyelid Plan: advised to ff up with ophthalmology Orders: Orders 2 Lipid Panel Today E11.65 - Type 2 diabetes mellitus with hyperglycemia, E78.00 - Pure hypercholesterolemia, unspecified Hemoglobin A1c Today E11.65 - Type 2 diabetes mellitus with hyperglycemia Complete Blood Count Auto Diff Today E11.65 - Type 2 diabetes mellitus with hyperglycemia AMB Hemoglobin A1c Today E11.65 - Type 2 diabetes mellitus with hyperglycemia Comprehensive Met. Panel Today E11.65 - Type 2 diabetes mellitus with hyperglycemia Medications: Discontinued 2 fluticasone propionate 50 mcg/actuation Discontinued Reason: Doctor's Order 2 sprays intranasal DAILY 90 days 3 ea 3RF Coding Level of Care Code Est Pt Level 4 (76669) Diagnoses Type 2 diabetes mellitus with hyperglycemia E11.65 Post covid-19 condition, unspecified U09.9 Hypertension I10 Class 3 severe obesity due to excess calories with serious comorbidity and body mass index (BMI) of 40.0 to 44.9 in adult E66.01; Z68.41 Obesity type: due to excess calories Obesity classification: adult class 3 (BMI >= 40) Serious obesity comorbidity presence: with serious comorbidity Body mass index: BMI 40.0-44.9 Gastroesophageal reflux disease without esophagitis K21.9 Esophagitis presence: without esophagitis Hypercholesterolemia E78.00 Nasal congestion R09.81 Swollen eyelid H02.849
== END 2023-07-09 16:54 | disposition home or self-care (01) ==
PROVIDERS: PCP Internal Medicine; Visit Provider Internal Medicine
DX: I10 Essential (primary) hypertension (principal); E11.65 Type 2 diabetes mellitus with hyperglycemia; E66.01 Morbid (severe) obesity due to excess calories; Z68.41 Body mass index [BMI] 40.0-44.9, adult; U09.9 Post COVID-19 condition, unspecified; K21.9 Gastro-esophageal reflux disease without esophagitis; E78.00 Pure hypercholesterolemia, unspecified; R09.81 Nasal congestion
CPT/HCPCS: 83036; 99214

== ENCOUNTER 2023-07-24 09:20 | Outpatient (AMB) | payer OTHER, SELFPAY ==
[2023-07-24 09:27] VITALS: BP 132/80; PULSE 68; O2SAT 97; BMI 39.1
--- NOTE | 2023-07-24 09:27 | A.OFFVIS_ITS ---
Vital Signs 07/24/23 09:27 Height 5 ft 2 in Weight 213 lb 13.574 oz BMI 39.1 BP 132/80 Blood Pressure Location Lt brachial Position Sitting Pulse 68 Pulse Source Pulse Oximeter Pulse Oximetry (%) 97 Oxygen Delivery Method Nasal Cannula Oxygen Flow Rate 1 Intake Visit Reasons: COPD Intake Note: pt is here for follow up and states she is using oxygen and is able to take breaks at home, pt is down 20lbs. Engineering Technology Instructor Required: Yes Engineering Technology Instructor Name: [id number] Allergies egg Allergy (Severe, Verified 07/24/23 09:43) throat swells up milk Allergy (Severe, Verified 07/24/23 09:43) throat swells up avocado Allergy (Intermediate, Verified 07/24/23 09:43) lip swelling lisinopril Allergy (Unknown, Verified 07/24/23 09:43) [facility] Adverse Reaction (Intermediate, Verified 07/24/23 09:43) pancreatitis pioglitazone Adverse Reaction (Intermediate, Verified 07/24/23 09:43) Swelling Medication List - Last Reconciled 07/24/23 by Zoila Knutson MD albuterol sulfate 90 mcg/actuation (Ventolin HFA) 4 puffs inhalation Q3H PRN amlodipine 5 mg PO DAILY apremilast (Otezla) 30 mg PO BID atenolol 100 mg PO DAILY atorvastatin 10 mg PO QPM blood pressure monitor (Blood Pressure Kit) As directed blood sugar diagnostic (FreeStyle Lite Strips) DIRECTED TESTS 4X/DAY blood-glucose meter (FreeStyle Burkett Lite kit) As directed blood-glucose meter,continuous (Dexcom G7 Rug Cleaner Hand) As directed blood-glucose sensor (Dexcom G7 Sensor device) DIRECTED CHANGE EVERY 10 DAYS Breo Ellipta 200-25 mcg/dose (fluticasone furoate-vilanterol) 1 inh inhalation DAILY NS calcipotriene 0.005% topical BID PRN cholecalciferol (vitamin D3) (Vitamin D3) 50 mcg PO DAILY clonazepam 1 mg PO BID PRN compress.stocking,knee,reg,lrg As directed 20-30 mm HG disposable gloves As directed divalproex 500 mg PO BID empagliflozin (Jardiance) 25 mg PO DAILY escitalopram oxalate 20 mg PO DAILY fexofenadine 180 mg PO DAILY 90 days flash glucose scanning reader ([employer] Jared 2 [place]) As directed changes every 14 days flash glucose sensor (FreeStyle Jared 2 Sensor kit) As directed change every 14 days [incontinence wipes As directed] ipratropium bromide 2.5 mL inhalation Q6H PRN 30 days lancets (FreeStyle Lancets) As directed losartan 100 mg PO DAILY metformin 500 mg PO DAILY nebulizers (Aeroneb Go Nebulizer) As directed olopatadine 0.1% 1 drp ophthalmic (eye) BID Oxygen Home Use As directed pen needle, diabetic (BD Patti 2nd Gen Pen Needle) USE PARMINDER LO INDICADO DIRECTED INJECT ONCE A DAY quetiapine 100 mg PO BEDTIME [sanitary pads As directed] Tresiba FlexTouch U-100 (insulin degludec) 22 units (0.22 mL) subcut BEDTIME NS Do you need a note to return to daycare/school/sports/work: No HPI HPI COPD: Details: [age] years old grossly obese female with restrictive/obstructive pulmonary disorder, comes for follow-up after 4 months . She has lost some weight and feels better. Still uses O2 at night and p.r.n. during the daytime. .Cough is minimal She denies any wheezing. But she does get short of breath when she walks around or climbs stairs. [facility] Medical History (Updated 07/24/23 @ 09:51 by Zoila Knutson MD) Hypoxemia Witnessed apneic spells Eczema Hordeolum externum left eye, unspecified eyelid Obesity Headache History of acute respiratory distress syndrome (ARDS) Persistent insomnia Respiratory failure with hypoxia Pneumonia due to severe acute respiratory syndrome coronavirus 2 (SARS-CoV-2) COVID-19 virus infection Cavitary lesion of lung Obesity (BMI 30-39.9) Anxiety and depression Hypersomnia Acute neck sprain Post covid-19 condition, unspecified Restrictive lung disease Lower extremity edema Pneumonia COVID-19 virus infection Diabetic nephropathy associated with type 2 diabetes mellitus Diabetic neuropathy associated with type 2 diabetes mellitus Acute meniscal tear of right knee Right thyroid nodule Psoriasis Hypertension Type 2 diabetes mellitus with hyperglycemia Hypercholesterolemia Osteoarthritis Insomnia GERD (gastroesophageal reflux disease) Diabetic nephropathy Bilateral carpal tunnel syndrome Surgical History History of D&C History of cholecystectomy History of section History of tubal ligation Family History Father Medical history unknown Mother Diabetes Hypertension Maternal Grandmother Pancreatic cancer Maternal Aunt Breast cancer Sister Breast cancer Social History Household Members: Family Housing: Apartment Are you a primary child care centre director to a significant other at home: No Do you presently have visiting nurse or other home services: No Alcohol intake: never Patient Tobacco Use Status: Never used Tobacco e-Cigarette/Vaping Use: Never Used Second Hand Smoke Exposure: Yes service: No Current occupational status: disabled Cognitive needs: No Hearing needs: No Vision needs: No Review of Systems Const All systems reviewed & are unremarkable except as noted in HPI and below Eyes Reports no additional complaints ENT Reports no additional complaints Card Denies chest pain, Denies irregular heart rhythm and Denies leg edema Resp Reports as per HPI GI Reports no additional complaints Reports no additional complaints Musc Reports abnormal gait (WEAK AND SOMETIME HAS TO USE A CANE) and Reports back pain Skin/Breast Reports system reviewed and no additional complaints, except as documented Neuro Reports abnormal gait (WEAK AND SOMETIME HAS TO USE A CANE) Psych Reports no additional complaints Physical Exam Vital Signs: Last Vital Signs Pulse 68 07/24/23 09:27 BP 132/80 07/24/23 09:27 Pulse Ox 97 07/24/23 09:27 Oxygen Delivery Method Nasal Cannula 07/24/23 09:27 Oxygen Flow Rate 1 07/24/23 09:27 BMI result Body Mass Index 39.1 Const General: healthy appearing, comfortable, no acute distress, alert and awake Orientation/consciousness: patient oriented x3 HEENT Head: Yes normal to inspection General nose exam: No nasal polyps present and No nasal discharge present Face and sinus: Yes sinuses nontender Mouth: oropharynx normal Throat: Yes posterior oropharynx normal Eyes General: appearance normal, both eyes and all related structures Neck Neck: Yes normal visual inspection, Yes no lymphadenopathy, Yes trachea midline and Yes no JVD Thyroid: Thyroid normal Chest Chest palpation & inspection: normal inspection of the chest, normal palpation of entire chest wall and no tenderness Resp Other: PERCUSSION NOTE IS RESONANT, EXCEPT OVER THE BASILAR AREAS WHERE IT IS SOMEWHAT DIMINISHED DUE TO OBESITY .. BREATH SOUNDS ARE DECREASED OVER THE LOWER LOBES BUT CLEAR . NO DEFINITE CREPITATIONS OR WHEEZES ARE HEARD . Cardio Palpation: normal PMI Rate: regular rate Rhythm: regular rhythm Heart sounds: no gallops and no murmurs Peripheral pulses: Peripheral pulses 2+ throughout GI Palpation (GI): Soft to palpation, nontender, No hepatosplenomegaly present, no masses and Other GI palpation findings present (ABDOMEN IS MODERATELY OBESE) Auscultation: normal bowel sounds Back/Spine/Pelvis Thoracic/Lumbar Spine: thoracic and lumbar spine normal to inspection and thoraco-lumbar ROM limited Skin General skin exam: no rashes or lesions noted Neuro General: patient oriented x3, No gait normal (IMPAIRED DUE TO WEAKNESS OF THE LOWER EXTREMITIES, WHEELCHAIR TO WALKER.) and no focal motor deficits Cranial nerves: Yes CN's II-XII intact bilaterally Extrem General: Yes normal to inspection, Yes no clubbing, cyanosis or edema and Yes no calf tenderness Psych Appearance: grossly normal and well kempt Speech and movement: Normal speech and movement present Assessment & Plan Assessment & Plan (1) Obesity: Comment: SHE IS MORBIDLY OBESE. HAS LOST SOME WEIGHT . Luckily her home-based sleep study was negative for sleep apnea. Code(s): E66.9 - Obesity, unspecified Category: Medical Qualifiers: Obesity type: due to excess calories Obesity classification: adult class 3 (BMI >= 40) Serious obesity comorbidity presence: with serious comorbidity Body mass index: BMI 40.0-44.9 Qualified Code(s): E66.01 - Morbid (severe) obesity due to excess calories; Z68.41 - Body mass index [BMI]40.0- 44.9, adult Plan: ENCOURAGED TO KEEP ON LOSING MORE WEIGHT (2) Restrictive lung disease: Comment: CONFIRMED BY COMPLETE PFT SHE DOES HAVE SEVERE RESTRICTIVE PULMONARY DISORDER, IT SEEMS TO HAVE IMPROVED. Code(s): J98.4 - Other disorders of lung Category: Medical Plan: WE WILL GET A COMPLETE PULMONARY FUNCTION TEST AGAIN FOR COMPARISON . SHE IS ADVISED TO KEEP ON DOING DEEP BREATHING EXERCISES AT LEAST 3 TIMES A DAY. (3) Post covid-19 condition, unspecified: Comment: PATIENT CONTINUES TO HAVE, RESIDUAL INTERSTITIAL LUNG DISEASE, POST COVID. WITH SIGNIFICANT RESPIRATORY INSUFFICIENCY, AND REQUIRING O2 SUPPLEMENTATION. LAST CT SCAN OF THE CHEST in JUNE 2022 SHOWS CONTINUED RESOLUTION OF THE INTERSTITIAL DISEASE IN THE LOWER LOBES . NOW SHE HAS ONLY MINIMAL FIBROTIC STRANDS OVER THE BASES . Code(s): U09.9 - Post COVID-19 condition, unspecified Category: Medical Plan: SHE HAS RESIDUAL RESTRICTIVE LUNG DISEASE SECONDARY TO MINIMAL RESIDUAL FIBROSIS. AGAIN ADVISED TO KEEP ON DOING DEEP BREATHING EXERCISES (4) Hypoxemia: Comment: SHE HAS HAD NOCTURNAL AND EXERCISE INDUCED HYPOXEMIA A RESULT OF ARDS, AND RESIDUAL FIBROTIC CHANGES IN THE LUNGS. CURRENTLY USES O2 2 L/MINUTE AT NIGHT. Code(s): R09.02 - Hypoxemia Category: Medical Plan: SHE IS SATURATING 95-97% AT REST, I ADVISED HER TO USE O2 DURING THE DAYTIME ONLY WHEN SHE GOES OUTDOORS AND WALKS AROUND. INSTRUCTED HER TO CHECK HER O2 SATS AND GOAL IS TO KEEP ABOVE 90%. Coding Level of Care Code Est Pt Level 4 (22600) Diagnoses Class 3 severe obesity due to excess calories with serious comorbidity and body mass index (BMI) of 40.0 to 44.9 in adult E66.01; Z68.41 Obesity type: due to excess calories Obesity classification: adult class 3 (BMI >= 40) Serious obesity comorbidity presence: with serious comorbidity Body mass index: BMI 40.0-44.9 Restrictive lung disease J98.4 Post covid-19 condition, unspecified U09.9 Hypoxemia R09.02
== END 2023-07-24 09:45 | disposition home or self-care (01) ==
PROVIDERS: PCP Internal Medicine; Visit Provider Internal Medicine
DX: E66.01 Morbid (severe) obesity due to excess calories (principal); Z68.41 Body mass index [BMI] 40.0-44.9, adult; J98.4 Other disorders of lung; U09.9 Post COVID-19 condition, unspecified; R09.02 Hypoxemia
CPT/HCPCS: 99214

== ENCOUNTER → 2023-07-24 09:20 | Outpatient (BNVA) | payer OTHER, SELFPAY | PROVIDERS: PCP Internal Medicine; Visit Provider Internal Medicine | DX: J98.4 Other disorders of lung (principal); R09.02 Hypoxemia; E66.01 Morbid (severe) obesity due to excess calories; U09.9 Post COVID-19 condition, unspecified; Z68.39 Body mass index [BMI] 39.0-39.9, adult | CPT/HCPCS: 99212 ==

== ENCOUNTER 2023-07-29 09:00 | Outpatient (AMB) | payer OTHER, SELFPAY ==
[2023-07-29 09:03] VITALS: BP 150/100; PULSE 77; TEMP 36.6; O2SAT 95; BMI 39.1
--- NOTE | 2023-07-29 09:03 | AM.OFFWIN_ITS ---
Intake Vital Signs 07/29/23 09:03 Height 5 ft 2 in Weight 214 lb BMI 39.1 BP 150/100 H Blood Pressure Location Lt brachial Position Sitting Pulse 77 Pulse Source Pulse Oximeter Temp 97.8 F Temp Source Temporal Artery Scan Pulse Oximetry (%) 95 Oxygen Delivery Method Room Air Intake Visit Reasons: EP nose bleeds Intake Note: pt is here today for nose bleed started 3 monhs Patient Tobacco Use Status: Never used Tobacco Allergies egg Allergy (Severe, Verified 07/29/23 09:07) throat swells up milk Allergy (Severe, Verified 07/29/23 09:07) throat swells up avocado Allergy (Intermediate, Verified 07/29/23 09:07) lip swelling lisinopril Allergy (Unknown, Verified 07/29/23 09:07) [facility] Adverse Reaction (Intermediate, Verified 07/29/23 09:07) pancreatitis pioglitazone Adverse Reaction (Intermediate, Verified 07/29/23 09:07) Swelling Do you need a note to return to daycare/school/sports/work: No HPI HPI Comments History of Present Illness Details This is a 52-year-old female presenting to the walk-in clinic complaining of nasal congestion x 3 months. Patient states she feels very congested in her nose although does not feel any sinus pain/pressure. She denies significant rhinorrhea although she does have clear nasal drainage when she blows her nose. She denies any fevers/chills. She denies sore throat or cough. She has been using normal saline nasal rinse spray without much relief. She also tried flonase, which did not seem to help. [facility] Medical History (Updated 07/24/23 @ 09:51 by Zoila Knutson MD) Hypoxemia Witnessed apneic spells Eczema Hordeolum externum left eye, unspecified eyelid Obesity Headache History of acute respiratory distress syndrome (ARDS) Persistent insomnia Respiratory failure with hypoxia Pneumonia due to severe acute respiratory syndrome coronavirus 2 (SARS-CoV-2) COVID-19 virus infection Cavitary lesion of lung Obesity (BMI 30-39.9) Anxiety and depression Hypersomnia Acute neck sprain Post covid-19 condition, unspecified Restrictive lung disease Lower extremity edema Pneumonia COVID-19 virus infection Diabetic nephropathy associated with type 2 diabetes mellitus Diabetic neuropathy associated with type 2 diabetes mellitus Acute meniscal tear of right knee Right thyroid nodule Psoriasis Hypertension Type 2 diabetes mellitus with hyperglycemia Hypercholesterolemia Osteoarthritis Insomnia GERD (gastroesophageal reflux disease) Diabetic nephropathy Bilateral carpal tunnel syndrome Surgical History History of D&C History of cholecystectomy History of section History of tubal ligation Family History Father Medical history unknown Mother Diabetes Hypertension Maternal Grandmother Pancreatic cancer Maternal Aunt Breast cancer Sister Breast cancer Social History Household Members: Family Housing: Apartment Are you a primary laboratory animal care veterinarian to a significant other at home: No Do you presently have visiting nurse or other home services: No Alcohol intake: never Patient Tobacco Use Status: Never used Tobacco e-Cigarette/Vaping Use: Never Used Second Hand Smoke Exposure: Yes service: No Current occupational status: disabled Cognitive needs: No Hearing needs: No Vision needs: No Review of Systems Const All systems reviewed & are unremarkable except as noted in HPI and below Reports no additional complaints Eyes Reports no additional complaints ENT Reports no additional complaints Card Reports no additional complaints Resp Reports no additional complaints GI Reports no additional complaints Reports no additional complaints Musc Reports no additional complaints Skin/Breast Reports system reviewed and no additional complaints, except as documented Neuro Reports no additional complaints Psych Reports no additional complaints Endo Reports no additional complaints Allen/Lymph Reports no additional complaints Aller/Immun Reports no additional complaints Physical Exam Vital Signs: Last Vital Signs Temp 97.8 F 07/29/23 09:03 Pulse 77 07/29/23 09:03 BP 150/100 H 07/29/23 09:03 Pulse Ox 95 07/29/23 09:03 Oxygen Delivery Method Room Air 07/29/23 09:03 BMI result Body Mass Index 39.1 Const Other: Vital signs reviewed. Constitutional: Non-toxic appearing. No acute distress. Well-developed and well-nourished. HEENT: Normocephalic and atraumatic. Tympanic membranes without erythema, edema, or bulging bilaterally. External auditory canals without erythema or edema bilaterally. Moist mucous membranes. No pharyngeal erythema or exudates. Her nasal turbinates are erythematous bilaterally. Skin: Warm and dry. No rashes or lesions noted. Neck: Full and painless range of motion. No cervical lymphadenopathy. Cardio: Regular rate. No lower extremity edema. No JVD. Pulmonary: No respiratory distress. No accessory muscle usage. Gastrointestinal: Soft, nontender, and nondistended in all 4 quadrants. Musculoskeletal: Normal range of motion in joints throughout the body. No deformity or other signs of injury. Neuro: Alert and oriented x4. Cranial nerves 2-12 grossly intact. No focal deficits appreciated. Psych: Normal mood and affect. Assessment & Plan Assessment & Plan (1) Nasal congestion: Code(s): R09.81 - Nasal congestion Plan: 52-year-old female who presented to the walk-in complaining of nasal congestion x 3 months. Low suspicion for bacterial rhinosinusitis given no fevers or purulent nasal drainage. Differential diagnosis includes chronic sinusitis versus allergic rhinitis. Recommended OTC anti-histamines, decongestants such as guaifenesin, and nasal rinse/spray. Patient encouraged to follow-up with her PCP for an ENT referral. Patient verbalized understanding and is agreeable with the plan. Coding Level of Care Code Est Pt Level 3 (90916) Diagnoses Nasal congestion R09.81
== END 2023-07-29 10:15 | disposition home or self-care (01) ==
PROVIDERS: PCP Internal Medicine; Visit Provider Physician Assistant Medical
DX: R09.81 Nasal congestion (principal)
CPT/HCPCS: 99213

== ENCOUNTER 2023-10-14 08:14 | Outpatient (AMB) | payer OTHER, SELFPAY ==
--- NOTE | 2023-10-14 08:20 | A.OFFVIS_ITS ---
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 Required: No Accompanied by: Self / Same As Patient Allergies egg Allergy (Severe, Verified 10/14/23 08:21) throat swells up milk Allergy (Severe, Verified 10/14/23 08:21) throat swells up avocado Allergy (Intermediate, Verified 10/14/23 08:21) lip swelling lisinopril Allergy (Unknown, Verified 10/14/23 08:21) Unknown dulaglutide [From [facility]] Adverse Reaction (Intermediate, Verified 10/14/23 08:21) pancreatitis pioglitazone Adverse Reaction (Intermediate, Verified 10/14/23 08:21) Swelling Medication List - Last Reconciled 10/14/23 by Judi Cazares PA-C albuterol sulfate 90 mcg/actuation (Ventolin HFA) 4 puffs inhalation Q3H PRN amlodipine 5 mg PO DAILY apremilast (Otezla) 30 mg PO BID atenolol 100 mg PO DAILY atorvastatin 10 mg PO QPM blood pressure monitor (Blood Pressure Kit) As directed blood sugar diagnostic (FreeStyle Lite Strips) DIRECTED TESTS 4X/DAY blood-glucose meter (FreeStyle [place] Lite kit) As directed blood-glucose meter,continuous (Dexcom G7 Elevator Erector Helper) As directed blood-glucose sensor (Dexcom G7 Sensor device) As directed change every 10 days blood-glucose sensor (Dexcom G7 Sensor device) DIRECTED CHANGE EVERY 10 DAYS Breo Ellipta 200-25 mcg/dose (fluticasone furoate-vilanterol) 1 inh inhalation DAILY NS calcipotriene 0.005% topical BID PRN cholecalciferol (vitamin D3) (Vitamin D3) 50 mcg PO DAILY clonazepam 1 mg PO BID PRN compress.stocking,knee,reg,lrg As directed 20-30 mm HG disposable gloves As directed divalproex 500 mg PO BID empagliflozin (Jardiance) 25 mg PO DAILY escitalopram oxalate 20 mg PO DAILY fexofenadine 180 mg PO DAILY 90 days [incontinence wipes As directed] ipratropium bromide 2.5 mL inhalation Q6H PRN 30 days lancets (FreeStyle Lancets) As directed losartan 100 mg PO DAILY metformin 500 mg PO DAILY nebulizers (AeroneApplaud Go Nebulizer) As directed olopatadine 0.1% 1 drp ophthalmic (eye) BID Oxygen Home Use As directed pen needle, diabetic (BD Patti 2nd Gen Pen Needle) USE PARMINDER LO INDICADO DIRECTED INJECT ONCE A DAY quetiapine 100 mg PO BEDTIME [sanitary pads As directed] Tresiba FlexTouch U-100 (insulin degludec) 22 units (0.22 mL) subcut BEDTIME NS HPI HPI f/u Type 2 DM-CONFIRMED/pt requests Ipad for IS: Details: Patient is a 53-year-old female with a significant past medical history of hypertension, hyperlipidemia, type 2 diabetes, peripheral vascular disease, diabetic nephropathy, diabetic neuropathy and goiter presenting today for follow-up regarding her diabetes. She last saw Dr. Mas in December 2022. Endo: DM-A1c was 7.5. She is currently on Jardiance 25 mg, metformin 500 mg daily, Tresiba 22 units at bedtime. She states that she just recently restarted the Tresiba. She states that this past month she has been really bad with her diet. She reports over eating and eating a lot of sweets. She states that they are getting a puppy and this has caused some increased anxiety. She knows that she needs to be better with her diet and really does not want to make any medication adjustments. She does not tolerate higher doses of metformin. -in the past had pancreatitis while on trLumex Instruments CGM-Dexcom download shows 64% usage. 15% very high, 42% high, 43% in range, 0% hypoglycemic events She reports symptoms of hyperglycemia of increased thirst. Denies any symptoms of hypoglycemic events. States that she has felt low in the past and her symptoms include. She corrects hypoglycemia with on statin and arb neurpoathy-intermittently gets tingling but no loss of sensation or weakness. No pain . nephropathy- last urine 2022 shows microalbuminuria, does not see nephrolology, on arb. CV: bp today in the office is 130/78. She is currently on losartan 100 mg daily, atenolol 100 mg daily, amlodipine 5 mg. Her last LDL was 106. She is on atorvastatin 10 mg nightly. [facility] Medical History (Updated 10/14/23 @ 08:59 by Judi Cazares PA-C) Hypoxemia Witnessed apneic spells Eczema Hordeolum externum left eye, unspecified eyelid Obesity Headache History of acute respiratory distress syndrome (ARDS) Persistent insomnia Respiratory failure with hypoxia Pneumonia due to severe acute respiratory syndrome coronavirus 2 (SARS-CoV-2) COVID-19 virus infection Cavitary lesion of lung Obesity (BMI 30-39.9) Anxiety and depression Hypersomnia Acute neck sprain Post covid-19 condition, unspecified Restrictive lung disease Lower extremity edema Pneumonia COVID-19 virus infection Diabetic nephropathy associated with type 2 diabetes mellitus Diabetic neuropathy associated with type 2 diabetes mellitus Acute meniscal tear of right knee Right thyroid nodule Psoriasis Hypertension Type 2 diabetes mellitus with hyperglycemia Hypercholesterolemia Osteoarthritis Insomnia GERD (gastroesophageal reflux disease) Diabetic nephropathy Bilateral carpal tunnel syndrome Surgical History History of D&C History of cholecystectomy History of section History of tubal ligation Family History Father Medical history unknown Mother Diabetes Hypertension Maternal Grandmother Pancreatic cancer Maternal Aunt Breast cancer Sister Breast cancer Social History Household Members: Family Housing: Apartment Are you a primary home care scheduler to a significant other at home: No Do you presently have visiting nurse or other home services: No Alcohol intake: never Patient Tobacco Use Status: Never used Tobacco e-Cigarette/Vaping Use: Never Used Second Hand Smoke Exposure: Yes service: No Current occupational status: disabled Cognitive needs: No Hearing needs: No Vision needs: No Physical Exam Vital Signs: BMI result Body Mass Index 39.9 Const Orientation/consciousness: patient oriented x3 Neck Neck: Yes no lymphadenopathy Carotids: no bruits Resp Auscultation: clear to auscultation bilaterally Cardio Rate: regular rate Rhythm: regular rhythm Heart sounds: S1 normal heart sound present and S2 normal heart sound present Peripheral pulses: dorsalis pedis present Neuro General: patient oriented x3, gait normal and no focal motor deficits Extrem Other: Monofilament sensation intact bilaterally. Vibratory sensation intact bilaterally. Skin intact. General: Yes normal to inspection Results AMB Hemoglobin A1c AMB Hemoglobin A1c 8.1 % Last Edit by JENNIFER Gordon on 10/14/23 09:00 Results Reviewed Results Reviewed: Laboratory Tests 03/27/23 05/20/23 07/09/23 09:24 07:56 16:23 Sodium 142 Potassium 3.4 Chloride 106 Carbon Dioxide 27 Anion Gap 12 BUN 17 H Creatinine 1.26 Estimated GFR 44 Hgb A1c (Clinic) 7.5 H Calcium 9.6 D AST 21 ALT 35 H Albumin 4.3 Triglycerides 186 H Cholesterol 192 LDL Cholesterol, Calc 106 H Assessment & Plan Assessment & Plan (1) Diabetic nephropathy associated with type 2 diabetes mellitus: Code(s): E11.21 - Type 2 diabetes mellitus with diabetic nephropathy Category: Medical Plan: advised to avoid NSAIDs, continue on losartan. She will continue on jardiance, metformin and tresiba 22 units nightly. She does not tolerate the Dexcom. States that it is big involved off a lot and she also gets a lot of bleeding while trying to places. She has contacted the manufacture as well. She is frustrated with using the Dexcom. She has changed sites but wants to go back to the [email or web address] Jared. She states that this 1 is smaller and easier to use. She refuses to make any medication adjustments today and wants to try to manage this with a better diet. Rule of 15 reviewed. Complications associated with uncontrolled type 2 diabetes were also reviewed including increased risk of stroke, heart attack, amputations, infections, worsened kidney function, blindness etc.. (2) Hypertension: Code(s): I10 - Essential (primary) hypertension Category: Medical Qualifiers: Hypertension type: primary hypertension Qualified Code(s): I10 - Essential (primary) hypertension Plan: Continue current regimen. WNL today. (3) Hypercholesterolemia: Code(s): E78.00 - Pure hypercholesterolemia, unspecified Category: Medical Plan: Reviewed last lipids and LFTs. Continue on atorvastatin. Medications: New blood-glucose meter,continuous (FreeStyle [place] 3 [place]) Use daily As directed to monitor blood glucose 1 ea 0RF blood-glucose sensor (FreeStyle Jared 3 Sensor device) Apply every 14 days As directed to monitor blood glucose 2 ea 11RF E11.9 - Type 2 diabetes mellitus without complications, Z79.4 - longterm (current) use of insulin Coding Level of Care Code Est Pt Level 4 (79424) Complex EM visit Add On G2211 Diagnoses Diabetic nephropathy associated with type 2 diabetes mellitus E11.21 Primary hypertension I10 Hypertension type: primary hypertension Hypercholesterolemia E78.00
[2023-10-14 08:22] VITALS: BP 130/78; PULSE 96; BMI 39.9
[2023-10-14 08:41] LABS: Glucose, Whole Blood 120 mg/dL (60-115)
== END 2023-10-14 08:59 | disposition home or self-care (01) ==
PROVIDERS: PCP Internal Medicine; Visit Provider Physician Assistant
DX: E11.21 Type 2 diabetes mellitus with diabetic nephropathy (principal); I10 Essential (primary) hypertension; E78.00 Pure hypercholesterolemia, unspecified
CPT/HCPCS: 99214; G2211

== ENCOUNTER → 2023-10-14 08:14 | Outpatient (BNVA) | payer OTHER, SELFPAY | PROVIDERS: PCP Internal Medicine; Visit Provider Physician Assistant | DX: E11.21 Type 2 diabetes mellitus with diabetic nephropathy (principal); E11.40 Type 2 diabetes mellitus with diabetic neuropathy, unspecified; E78.00 Pure hypercholesterolemia, unspecified; I10 Essential (primary) hypertension; Z79.4 Long term (current) use of insulin | CPT/HCPCS: 82947; 83036; 99212 ==

== ENCOUNTER 2023-10-28 09:02 | Outpatient (AMB) | payer OTHER, SELFPAY ==
--- NOTE | 2023-10-28 09:17 | MHC.OFFVIS ---
Vital Signs 10/28/23 09:18 Height 5 ft 2 in Weight 218 lb 4.122 oz BMI 39.9 BP 140/90 H Blood Pressure Location Lt brachial Position Sitting Pulse 80 Pulse Source Pulse Oximeter Pulse Oximetry (%) 97 Oxygen Delivery Method Nasal Cannula Oxygen Flow Rate 1 Intake Visit Reasons: COPD Intake Note: pt is here for follow up and states she is having a nasal congestion issue, using saline, but still has an issue, flonase does not help Allergies egg Allergy (Severe, Verified 10/28/23 09:34) throat swells up milk Allergy (Severe, Verified 10/28/23 09:34) throat swells up avocado Allergy (Intermediate, Verified 10/28/23 09:34) lip swelling lisinopril Allergy (Unknown, Verified 10/28/23 09:34) Unknown dulaglutide [From [facility]] Adverse Reaction (Intermediate, Verified 10/28/23 09:34) pancreatitis pioglitazone Adverse Reaction (Intermediate, Verified 10/28/23 09:34) Swelling Medication List - Last Reconciled 10/28/23 by Zoila Knutson MD albuterol sulfate 90 mcg/actuation (Ventolin HFA) 4 puffs inhalation Q3H PRN amlodipine 5 mg PO DAILY apremilast (Otezla) 30 mg PO BID atenolol 100 mg PO DAILY atorvastatin 10 mg PO QPM blood pressure monitor (Blood Pressure Kit) As directed blood sugar diagnostic (FreeStyle Lite Strips) DIRECTED TESTS 4X/DAY blood-glucose meter (FreeStyle [place] Lite kit) As directed blood-glucose meter,continuous (FreeStyle Jared 3 [place]) Use daily As directed to monitor blood glucose blood-glucose sensor (FreeStyle Jared 3 Sensor device) Apply every 14 days As directed to monitor blood glucose Breo Ellipta 200-25 mcg/dose (fluticasone furoate-vilanterol) 1 inh inhalation DAILY NS calcipotriene 0.005% topical BID PRN cholecalciferol (vitamin D3) (Vitamin D3) 50 mcg PO DAILY clonazepam 1 mg PO BID PRN compress.stocking,knee,reg,lrg As directed 20-30 mm HG disposable gloves As directed divalproex 500 mg PO BID empagliflozin (Jardiance) 25 mg PO DAILY escitalopram oxalate 20 mg PO DAILY fexofenadine 180 mg PO DAILY 90 days [incontinence wipes As directed] ipratropium bromide 2.5 mL inhalation Q6H PRN 30 days lancets (FreeStyle Lancets) As directed losartan 100 mg PO DAILY metformin 500 mg PO DAILY nebulizers (Aeroneb Go Nebulizer) As directed olopatadine 0.1% 1 drp ophthalmic (eye) BID Oxygen Home Use As directed pen needle, diabetic (BD Patti 2nd Gen Pen Needle) USE PARMINDER LO INDICADO DIRECTED INJECT ONCE A DAY quetiapine 100 mg PO BEDTIME [sanitary pads As directed] Tresiba FlexTouch U-100 (insulin degludec) 22 units (0.22 mL) subcut BEDTIME NS Do you need a note to return to daycare/school/sports/work: No HPI HPI COPD: Details: This 53 years old very pleasant female who is grossly obese, and suffers from restrictive/obstructive pulmonary disorder. Has had COVID pneumonia, which resulted in ongoing residual interstitial lung disease. She remains on O2 at night 2 L/minute and O2 p.r.n. during the daytime. Her breathing status has remained stable without any recurrent respiratory infection. Main complaint is some nasal irritation due to the nasal cannula, but she is able to use oxygen the whole night. She does remain grossly obese and there is a high risk for obstructive sleep apnea. [facility] Medical History Hypoxemia Witnessed apneic spells Eczema Hordeolum externum left eye, unspecified eyelid Obesity Headache History of acute respiratory distress syndrome (ARDS) Persistent insomnia Respiratory failure with hypoxia Pneumonia due to severe acute respiratory syndrome coronavirus 2 (SARS-CoV-2) COVID-19 virus infection Cavitary lesion of lung Obesity (BMI 30-39.9) Anxiety and depression Hypersomnia Acute neck sprain Post covid-19 condition, unspecified Restrictive lung disease Lower extremity edema Pneumonia COVID-19 virus infection Diabetic nephropathy associated with type 2 diabetes mellitus Diabetic neuropathy associated with type 2 diabetes mellitus Acute meniscal tear of right knee Right thyroid nodule Psoriasis Hypertension Type 2 diabetes mellitus with hyperglycemia Hypercholesterolemia Osteoarthritis Insomnia GERD (gastroesophageal reflux disease) Diabetic nephropathy Bilateral carpal tunnel syndrome Surgical History History of D&C History of cholecystectomy History of section History of tubal ligation Family History Father Medical history unknown Mother Diabetes Hypertension Maternal Grandmother Pancreatic cancer Maternal Aunt Breast cancer Sister Breast cancer Social History Household Members: Family Housing: Apartment Are you a primary healthcare science specialist to a significant other at home: No Do you presently have visiting nurse or other home services: No Alcohol intake: never Patient Tobacco Use Status: Never used Tobacco e-Cigarette/Vaping Use: Never Used Second Hand Smoke Exposure: Yes service: No Current occupational status: disabled Cognitive needs: No Hearing needs: No Vision needs: No Review of Systems Const All systems reviewed & are unremarkable except as noted in HPI and below Eyes Reports no additional complaints ENT Reports no additional complaints Card Denies chest pain, Denies irregular heart rhythm and Denies leg edema Resp Reports as per HPI GI Reports no additional complaints Reports no additional complaints Musc Reports abnormal gait (WEAK AND SOMETIME HAS TO USE A CANE) and Reports back pain Skin/Breast Reports system reviewed and no additional complaints, except as documented Neuro Reports abnormal gait (WEAK AND SOMETIME HAS TO USE A CANE) Psych Reports no additional complaints Physical Exam Const General: healthy appearing, comfortable, no acute distress, alert and awake Orientation/consciousness: patient oriented x3 HEENT Head: Yes normal to inspection General nose exam: No nasal polyps present and No nasal discharge present Face and sinus: Yes sinuses nontender Mouth: oropharynx normal Throat: Yes posterior oropharynx normal Eyes General: appearance normal, both eyes and all related structures Neck Neck: Yes normal visual inspection, Yes no lymphadenopathy, Yes trachea midline and Yes no JVD Thyroid: Thyroid normal Chest Chest palpation & inspection: normal inspection of the chest, normal palpation of entire chest wall and no tenderness Resp Other: PERCUSSION NOTE IS RESONANT, EXCEPT OVER THE BASILAR AREAS WHERE IT IS SOMEWHAT DIMINISHED DUE TO OBESITY .. BREATH SOUNDS ARE DECREASED OVER THE LOWER LOBES BUT CLEAR . NO DEFINITE CREPITATIONS OR WHEEZES ARE HEARD . Cardio Palpation: normal PMI Rate: regular rate Rhythm: regular rhythm Heart sounds: no gallops and no murmurs Peripheral pulses: Peripheral pulses 2+ throughout GI Palpation (GI): Soft to palpation, nontender, No hepatosplenomegaly present, no masses and Other GI palpation findings present (ABDOMEN IS MODERATELY OBESE) Auscultation: normal bowel sounds Back/Spine/Pelvis Thoracic/Lumbar Spine: thoracic and lumbar spine normal to inspection and thoraco-lumbar ROM limited Skin General skin exam: no rashes or lesions noted Neuro General: patient oriented x3, No gait normal (IMPAIRED DUE TO WEAKNESS OF THE LOWER EXTREMITIES, WHEELCHAIR TO WALKER.) and no focal motor deficits Cranial nerves: Yes CN's II-XII intact bilaterally Extrem General: Yes normal to inspection, Yes no clubbing, cyanosis or edema and Yes no calf tenderness Psych Appearance: grossly normal and well kempt Speech and movement: Normal speech and movement present Results Reviewed Results Reviewed: Mary walked for 5 minutes on room air. Towards the end of 5 minutes walk her O2 sat dropped to 89-88%. Thus she still needs to use oxygen with portable unit when walking around. Assessment & Plan Assessment & Plan (1) Post covid-19 condition, unspecified: Comment: PATIENT CONTINUES TO HAVE, RESIDUAL INTERSTITIAL LUNG DISEASE, POST COVID. WITH SIGNIFICANT RESPIRATORY INSUFFICIENCY, AND REQUIRING O2 SUPPLEMENTATION. LAST CT SCAN OF THE CHEST in JUNE 2022 SHOWED CONTINUED RESOLUTION OF THE INTERSTITIAL DISEASE IN THE LOWER LOBES . NOW SHE HAS ONLY MINIMAL FIBROTIC STRANDS OVER THE BASES . Code(s): U09.9 - Post COVID-19 condition, unspecified Category: Medical Plan: Explained to the patient about residual interstitial lung disease, and continued respiratory insufficiency. (2) Restrictive lung disease: Comment: CONFIRMED BY COMPLETE PFT SHE DOES HAVE SEVERE RESTRICTIVE PULMONARY DISORDER, IT SEEMS TO HAVE IMPROVED. Code(s): J98.4 - Other disorders of lung Category: Medical Plan: as above (3) Obesity: Comment: SHE IS GROSSLY OBESE. HAS LOST SOME WEIGHT . * Luckily her home-based sleep study was negative for sleep apnea. Code(s): E66.9 - Obesity, unspecified Category: Medical Qualifiers: Obesity type: due to excess calories Obesity classification: adult class 3 (BMI >= 40) Serious obesity comorbidity presence: with serious comorbidity Body mass index: BMI 40.0-44.9 Qualified Code(s): E66.01 - Morbid (severe) obesity due to excess calories; Z68.41 - Body mass index [BMI]40.0-44.9, adult Plan: DISCUSSED WITH HER ABOUT NEED TO LOSE SOME WEIGHT AND START WALKING MORE DURING THE DAYTIME. I EXPLAINED TO REDUCE THE CALORIES INTAKE ESPECIALLY IN THE FORM OF CARBOHYDRATES. (4) Hypoxemia: Comment: SHE HAS HAD NOCTURNAL AND EXERCISE INDUCED HYPOXEMIA A RESULT OF ARDS, AND RESIDUAL FIBROTIC CHANGES IN THE LUNGS. CURRENTLY USES O2 2 L/MINUTE AT NIGHT. Code(s): R09.02 - Hypoxemia Category: Medical Plan: CONTINUE TO USE O2 2 L/MINUTE AT NIGHT. 2 L/MINUTE WITH THE PORTABLE UNIT WHEN WALKING AROUND OR DOING ANY PHYSICAL WORK. Coding Level of Care Code Est Pt Level 4 (96085) Diagnoses Post covid-19 condition, unspecified U09.9 Restrictive lung disease J98.4 Class 3 severe obesity due to excess calories with serious comorbidity and body mass index (BMI) of 40.0 to 44.9 in adult E66.01; Z68.41 Obesity type: due to excess calories Obesity classification: adult class 3 (BMI >= 40) Serious obesity comorbidity presence: with serious comorbidity Body mass index: BMI 40.0-44.9 Hypoxemia R09.02
[2023-10-28 09:18] VITALS: BP 140/90; PULSE 80; O2SAT 97; BMI 39.9
== END 2023-10-28 09:35 | disposition home or self-care (01) ==
PROVIDERS: PCP Internal Medicine; Visit Provider Internal Medicine
DX: U09.9 Post COVID-19 condition, unspecified (principal); J98.4 Other disorders of lung; E66.01 Morbid (severe) obesity due to excess calories; Z68.41 Body mass index [BMI] 40.0-44.9, adult; R09.02 Hypoxemia
CPT/HCPCS: 99214

== ENCOUNTER → 2023-10-28 09:02 | Outpatient (BNVA) | payer OTHER, SELFPAY | PROVIDERS: PCP Internal Medicine; Visit Provider Internal Medicine | DX: J44.9 Chronic obstructive pulmonary disease, unspecified (principal); R09.02 Hypoxemia; J98.4 Other disorders of lung; E66.9 Obesity, unspecified; U09.9 Post COVID-19 condition, unspecified; Z68.41 Body mass index [BMI] 40.0-44.9, adult | CPT/HCPCS: 99212 ==

== ENCOUNTER 2023-10-29 08:06 | Outpatient (REF) | payer OTHER, SELFPAY ==
[2023-10-29 10:32] LABS: MANUAL DIFF FLAG NO
[2023-10-29 10:35] LABS: Basophils Absolute Auto 0.1 X10*3/uL (0.0-0.2); Basophils Percent Auto 1.1 % (0-2); Eosinophils Absolute Auto 0.3 X10*3/uL (0.0-0.4); Eosinophils Percent Auto 3.6 % (0-4); Hematocrit 45.3 % (37.0-47.0); Hemoglobin 14.4 g/dl (12.0-16.0); Imm Gran Abs Auto 0.03 X10*3/uL (0.00-0.03); Imm Gran Pct Auto 0.4 % (0.0-0.4); Lymphocytes Absolute Auto 1.3 X10*3/uL (1.2-4.9); Lymphocytes Percent Auto 14.8 % (20-40); Mean Corpuscular HGB Conc 31.8 g/dl (31.0-35.0); Mean Corpuscular Volume 84.8 fL (80.0-98.0); Mean Platelet Volume 10.7 fL (9.4-12.3); Monocytes Absolute Auto 0.7 X10*3/uL (0.1-1.2); Monocytes Percent Auto 7.8 % (2-11); Neutrophils Absolute Auto 6.2 x10*3/uL (2.0-8.3); Neutrophils Percent Auto 72.3 % (45-73); Platelet Count 262 X10*3/uL (160-400); Red Blood Count 5.34 X10*6/uL (4.20-5.50); Red Cell Distribution Width 14.8 % (11.0-16.0); White Blood Count 8.5 X10*3/uL (4.8-10.8)
[2023-10-29 11:05] LABS: Estimated Average Glucose 166 mg/dL; Hemoglobin A1c % 7.4 % (<6.0)
[2023-10-29 11:11] LABS: Alanine Aminotransferase 19 U/L (0-31); Albumin Level 4.1 g/dL (3.5-5.0); Alkaline Phosphatase 129 U/L (39-117); Anion Gap 11 (12-20); Aspartate Amino Transferase 15 U/L (5-31); Bilirubin Total 0.5 mg/dL (0.0-1.0); Blood Urea Nitrogen 16 mg/dL (9-16); Calcium 10.1 mg/dL (8.4-10.2); Carbon Dioxide 30 mmol/L (22-29); Chloride 104 mmol/L (96-108); Cholesterol 170 mg/dL (<200); Estimated Glomerular Filt Rate 41; Glucose Random 134 mg/dL (60-115); HDL Cholesterol 49 mg/dL (>40); LDL Cholesterol Calculated 90 mg/dL (<100); Potassium 3.9 mmol/L (3.3-5.1); Sodium 141 mmol/L (135-145); Total Protein 7.8 g/dL (6.5-8.0); Triglycerides 156 mg/dL (<150)
[2023-10-29 11:25] LABS: Free T4 (Free Thyroxine) 1.07 ng/dL (0.71-1.85)
[2023-10-29 11:30] LABS: Thyroid Stimulating Hormone 1.12 uIU/mL (0.32-4.0)
== END 2023-10-29 08:07 | disposition home or self-care (01) ==
LOC: HO.10HDL 08:06
PROVIDERS: Internal Medicine Endocrinology, Diabetes & Metabolism; Visit Provider Internal Medicine
DX: E78.00 Pure hypercholesterolemia, unspecified (principal); E11.65 Type 2 diabetes mellitus with hyperglycemia; E04.2 Nontoxic multinodular goiter
CPT/HCPCS: 36415; 80053; 80061; 83036; 84439; 84443; 85025

== ENCOUNTER 2023-11-15 08:15 | Outpatient (AMB) | payer OTHER, SELFPAY ==
--- NOTE | 2023-11-15 08:25 | A.OFFVIS_ITS ---
Vital Signs 11/15/23 08:27 Height 52 ft Weight 218 lb 7.649 oz BMI 0.4 BP 122/78 Blood Pressure Location Lt brachial Position Sitting Pulse 68 Pulse Source Pulse Oximeter Intake Visit Reasons: dm/insulin/CONFIRMED Intake Note: Patient presents today for D2MT follow up visit. 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 Services: Engineering Supplies Sales Present Information Interpreted: non-clinical & clinical Accompanied by: Self / Same As Patient Allergies egg Allergy (Severe, Verified 11/15/23 08:32) throat swells up milk Allergy (Severe, Verified 11/15/23 08:32) throat swells up avocado Allergy (Intermediate, Verified 11/15/23 08:32) lip swelling lisinopril Allergy (Unknown, Verified 11/15/23 08:32) [facility] Adverse Reaction (Intermediate, Verified 11/15/23 08:32) pancreatitis pioglitazone Adverse Reaction (Intermediate, Verified 11/15/23 08:32) Swelling Medication List - Last Reconciled 11/15/23 by Judi Cazares PA-C albuterol sulfate 90 mcg/actuation (Ventolin HFA) 4 puffs inhalation Q3H PRN amlodipine 5 mg PO DAILY apremilast (Otezla) 30 mg PO BID atenolol 100 mg PO DAILY atorvastatin 10 mg PO QPM blood pressure monitor (Blood Pressure Kit) As directed blood sugar diagnostic (FreeStyle Lite Strips) DIRECTED TESTS 4X/DAY blood-glucose meter (FreeStyle Novelty Lite kit) As directed blood-glucose meter,continuous (FreeStyle Jared 3 Pony) Use daily As directed to monitor blood glucose blood-glucose sensor (FreeStyle Jared 3 Sensor device) Apply every 14 days As directed to monitor blood glucose Breo Ellipta 200-25 mcg/dose (fluticasone furoate-vilanterol) 1 inh inhalation DAILY NS calcipotriene 0.005% topical BID PRN cholecalciferol (vitamin D3) (Vitamin D3) 50 mcg PO DAILY clonazepam 1 mg PO BID PRN compress.stocking,knee,reg,lrg As directed 20-30 mm HG disposable gloves As directed divalproex 500 mg PO BID empagliflozin (Jardiance) 25 mg PO DAILY escitalopram oxalate 20 mg PO DAILY fexofenadine 180 mg PO DAILY 90 days [incontinence wipes As directed] ipratropium bromide 2.5 mL inhalation Q6H PRN 30 days lancets (FreeStyle Lancets) As directed losartan 100 mg PO DAILY metformin 500 mg PO DAILY nebulizers (Aeroneb Go Nebulizer) As directed olopatadine 0.1% 1 drp ophthalmic (eye) BID Oxygen Home Use As directed pen needle, diabetic (BD Patti 2nd Gen Pen Needle) USE PARMINDER LO INDICADO DIRECTED INJECT ONCE A DAY quetiapine 100 mg PO BEDTIME [sanitary pads As directed] Tresiba FlexTouch U-100 (insulin degludec) 22 units (0.22 mL) subcut BEDTIME NS HPI HPI dm/insulin/CONFIRMED: Details: Patient is a 53-year-old female with a significant past medical history of hypertension, hyperlipidemia, type 2 diabetes, peripheral vascular disease, diabetic nephropathy, and goiter presenting today for follow-up regarding her diabetes. Endo: DM-A1c was 7.4 down from 8.1. She is currently on Jardiance 25 mg, metfo rmin 500 mg daily, Tresiba 22 units at bedtime. She states that she just recently restarted the Tresiba. does not tolerate higher doses of metformin. -in the past had pancreatitis while on trCrowdSourceity CGM-Dexcom download shows 65% usage. avg glucose 147, GMI 6.8%. 0% very high, 20% high, 80% in range, 0% hypoglycemic events She reports symptoms of hyperglycemia of increased thirst. Denies any symptoms of hypoglycemic events. States that she has felt low in the past and her symptoms include. She corrects hypoglycemia with glucose tabs or orange juice if needed. She has been doing a lot better with her and her exercise. Weight is unchanged but she is feeling better. on statin and arb neurpoathy-intermittently gets tingling but no loss of sensation or weakness. No pain . nephropathy- last urine 2022 shows microalbuminuria, does not see nephrolology, on arb. CV: bp today in the office is 122/78. She is currently on losartan 100 mg daily, atenolol 100 mg daily, amlodipine 5 mg. Her last LDL was 106. She is on atorvastatin 10 mg nightly. [facility] Medical History (Updated 11/15/23 @ 08:51 by Judi Cazares PA-C) Hypoxemia Witnessed apneic spells Eczema Hordeolum externum left eye, unspecified eyelid Obesity Headache History of acute respiratory distress syndrome (ARDS) Persistent insomnia Respiratory failure with hypoxia Pneumonia due to severe acute respiratory syndrome coronavirus 2 (SARS-CoV-2) COVID-19 virus infection Cavitary lesion of lung Obesity (BMI 30-39.9) Anxiety and depression Hypersomnia Acute neck sprain Post covid-19 condition, unspecified Restrictive lung disease Lower extremity edema Pneumonia COVID-19 virus infection Diabetic nephropathy associated with type 2 diabetes mellitus Diabetic neuropathy associated with type 2 diabetes mellitus Acute meniscal tear of right knee Right thyroid nodule Psoriasis Hypertension Type 2 diabetes mellitus with hyperglycemia Hypercholesterolemia Osteoarthritis Insomnia GERD (gastroesophageal reflux disease) Diabetic nephropathy Bilateral carpal tunnel syndrome Surgical History History of D&C History of cholecystectomy History of section History of tubal ligation Family History Father Medical history unknown Mother Diabetes Hypertension Maternal Grandmother Pancreatic cancer Maternal Aunt Breast cancer Sister Breast cancer Social History Household Members: Family Housing: Apartment Are you a primary summer child caregiver to a significant other at home: No Do you presently have visiting nurse or other home services: No Alcohol intake: never Patient Tobacco Use Status: Never used Tobacco e-Cigarette/Vaping Use: Never Used Second Hand Smoke Exposure: Yes service: No Current occupational status: disabled Cognitive needs: No Hearing needs: No Vision needs: No Physical Exam Const Orientation/consciousness: patient oriented x3 Neck Neck: Yes no lymphadenopathy Thyroid: Thyroid normal Carotids: no bruits Resp Auscultation: clear to auscultation bilaterally Cardio Rate: regular rate Rhythm: regular rhythm Heart sounds: S1 normal heart sound present and S2 normal heart sound present Peripheral pulses: dorsalis pedis present Neuro General: patient oriented x3, gait normal and no focal motor deficits Extrem Other: Monofilament sensation intact bilaterally. Vibratory sensation intact bilaterally. Skin intact. General: Yes normal to inspection Results Reviewed Results Reviewed: Laboratory Tests 10/14/23 10/29/23 08:59 08:10 Sodium 141 Potassium 3.9 Chloride 104 Carbon Dioxide 30 H Anion Gap 11 L BUN 16 Creatinine 1.33 Estimated GFR 41 Hgb A1c (Clinic) 8.1 H Hemoglobin A1c % 7.4 H Triglycerides 156 H Cholesterol 170 LDL Cholesterol, Calc 90 HDL Cholesterol 49 Assessment & Plan Assessment & Plan (1) Diabetic nephropathy associated with type 2 diabetes mellitus: Code(s): E11.21 - Type 2 diabetes mellitus with diabetic nephropathy Category: Medical Plan: Continue current regimen. We will check labs in 3 months prior to next appointment. She will follow up sooner if needed. Patient understands and agrees with this plan. (2) Hypertension: Code(s): I10 - Essential (primary) hypertension Category: Medical Qualifiers: Hypertension type: primary hypertension Qualified Code(s): I10 - Essnahomy tial (primary) hypertension Plan: wnl. continue current plan. Orders: Orders Hemoglobin A1c Today E11.21 - Type 2 diabetes mellitus with diabetic nephropathy Microalbumin, Random (w Creat) Today E11.21 - Type 2 diabetes mellitus with diabetic nephropathy Comprehensive [place]. Panel Fast Today E11.21 - Type 2 diabetes mellitus with diabetic nephropathy Coding Level of Care Code Est Pt Level 4 (17863) Complex EM visit Add On G2211 Diagnoses Diabetic nephropathy associated with type 2 diabetes mellitus E11.21 Primary hypertension I10 Hypertension type: primary hypertension
[2023-11-15 08:27] VITALS: BP 122/78; PULSE 68
[2023-11-15 08:38] LABS: Glucose, Whole Blood 118 mg/dL (60-115)
== END 2023-11-15 08:55 | disposition home or self-care (01) ==
PROVIDERS: PCP Internal Medicine; Visit Provider Physician Assistant
DX: E11.21 Type 2 diabetes mellitus with diabetic nephropathy (principal); I10 Essential (primary) hypertension
CPT/HCPCS: 99214; G2211

== ENCOUNTER → 2023-11-15 08:15 | Outpatient (BNVA) | payer OTHER, SELFPAY | PROVIDERS: PCP Internal Medicine; Visit Provider Physician Assistant | DX: E11.21 Type 2 diabetes mellitus with diabetic nephropathy (principal); I10 Essential (primary) hypertension; Z79.4 Long term (current) use of insulin | CPT/HCPCS: 82947; 99212 ==

== ENCOUNTER 2023-11-21 09:33 | Outpatient (AMB) | payer OTHER, SELFPAY ==
[2023-11-21 09:41] VITALS: BP 134/80; PULSE 90; O2SAT 95; BMI 39.3
--- NOTE | 2023-11-21 09:41 | MHC.PC.OV ---
Vital Signs 11/21/23 09:41 Height 5 ft 2 in Weight 215 lb BMI 39.3 BP 134/80 Blood Pressure Location Lt brachial Position Sitting Pulse 90 Pulse Source Pulse Oximeter Pulse Oximetry (%) 95 Oxygen Delivery Method Room Air Intake Visit Reasons: DM , HTN Cholesterol Allergies egg Allergy (Severe, Verified 11/21/23 09:42) throat swells up milk Allergy (Severe, Verified 11/21/23 09:42) throat swells up avocado Allergy (Intermediate, Verified 11/21/23 09:42) lip swelling lisinopril Allergy (Unknown, Verified 11/21/23 09:42) Unknown dulaglutide [From [facility]] Adverse Reaction (Intermediate, Verified 11/21/23 09:42) pancreatitis pioglitazone Adverse Reaction (Intermediate, Verified 11/21/23 09:42) Swelling Tobacco use date assessed: 05/17/23 Dental Screening Dental Screen Date: 05/17/23 HPI DM , HTN Cholesterol HPI Details 53-year-old obese female with diabetes mellitus uncontrolled has a history of post COVID 19 infection with respiratory problem hypercholesterolemia GERD hypertension last seen 06/29/2023. Patient is up-to-date with mammogram and declined colonoscopy. Patient is presently seeing endocrinology. Up-to-date with Ophthalmology no retinopathy cataract that is not mature yet. Followed up with Pulmonary in October 27 having residual interstitial lung disease with respiratory insufficiency requiring O2 supplementation CT scan of the chest 06/28/2022 continued resolution of the problem. complains of nasal congestion. Found out that patient was using oxymetazoline and discussed that this can cause rhinitis medicamentosa. Advised to stop it. Will send in some nasal sprays. Otherwise doing good. [facility] Medical History (Updated 11/21/23 @ 10:18 by Cally Rizvi MD) Hypoxemia Witnessed apneic spells Eczema Hordeolum externum left eye, unspecified eyelid Obesity Headache History of acute respiratory distress syndrome (ARDS) Persistent insomnia Respiratory failure with hypoxia Pneumonia due to severe acute respiratory syndrome coronavirus 2 (SARS-CoV-2) COVID-19 virus infection Cavitary lesion of lung Obesity (BMI 30-39.9) Anxiety and depression Hypersomnia Acute neck sprain Post covid-19 condition, unspecified Restrictive lung disease Lower extremity edema Pneumonia COVID-19 virus infection Diabetic nephropathy associated with type 2 diabetes mellitus Diabetic neuropathy associated with type 2 diabetes mellitus Acute meniscal tear of right knee Right thyroid nodule Psoriasis Hypertension Type 2 diabetes mellitus with hyperglycemia Hypercholesterolemia Osteoarthritis Insomnia GERD (gastroesophageal reflux disease) Diabetic nephropathy Bilateral carpal tunnel syndrome Surgical History History of D&C History of cholecystectomy History of section History of tubal ligation Family History Father Medical history unknown Mother Diabetes Hypertension Maternal Grandmother Pancreatic cancer Maternal Aunt Breast cancer Sister Breast cancer Social History Household Members: Family Housing: Apartment Are you a primary manager respiratory care to a significant other at home: No Do you presently have visiting nurse or other home services: No Alcohol intake: never Patient Tobacco Use Status: Never used Tobacco Tobacco use type: Cigarette e-Cigarette/Vaping Use: Never Used Second Hand Smoke Exposure: Yes service: No Current occupational status: disabled Cognitive needs: No Hearing needs: No Vision needs: No Questionnaire PHQ-9 Over the last 2 weeks, how often have you been bothered by any of the following problems? 1. Little interest or pleasure in doing things: several days 2. Feeling down, depressed, or hopeless: several days 3. Trouble falling or staying asleep, or sleeping too much: several days 4. Feeling tired or having little energy: several days 5. Poor appetite or overeating: several days 6. Feeling bad about yourself - or that you are a failure or have let yourself or your family down: several days 7. Trouble concentrating on things, such as reading the newspaper or watching television: not at all 8. Moving or speaking so slowly that other people could have noticed. Or the opposite - being so fidgety or restless that you have been moving around a lot more than usual: not at all 9. Thoughts that you would be better off or of hurting yourself in some way: not at all Total score: 6 Depression Screening Interpretation: Negative Depression Screening Done: Yes Source: Developed by Drs. Delvin Head, Ashley Rahman, Vinod Manzanares and colleagues, with an educational jo-ann from [employer]. Thrive Questionnaire Date Thrive assessed: 03/27/23 AUDIT C Alcohol Use Questionnaire (AUDIT-C) 1. How often do you have a drink containing alcohol?: Never 3. How often do you have six or more drinks on one occasion?: Never Total Score: 0 NANCY-7 AMB Questionnaire NANCY-7 Date NANCY - 7 assessed: 03/27/23 Source: Developed by Drs. Delvin Head, Ashley Rahman, Vinod Manzanares and colleagues, with an educational jo-ann from [employer]. Physical exam (Primary Care) Vital Signs: Last Vital Signs Pulse 90 11/21/23 09:41 BP 134/80 11/21/23 09:41 Pulse Ox 95 11/21/23 09:41 Oxygen Delivery Method Room Air 11/21/23 09:41 BMI result Body Mass Index 39.3 Tobacco/Smoking Status: Tobacco use Status Tobacco use date assessed 05/17/23 11/21/23 09:42 Patient Tobacco Use Status Never used Tobacco 11/21/23 09:42 Tobacco use type Cigarette 11/21/23 09:42 e-Cigarette/Vaping Use Never Used 11/21/23 09:42 PHQ-9: PHQ-9 Score PHQ-9: Total score 6 11/21/23 10:03 Depression Screening Interpretation: Negative Thrive Assessment: Date of Thrive Assessment Date Thrive assessed 03/27/23 11/21/23 09:42 Const General: alert; No acute distress Eyes Conjunctivae: conjunctivae normal Resp Auscultation: clear to auscultation bilaterally Cardio Rate: regular rate Rhythm: regular rhythm GI Inspection: Yes normal to inspection Extrem General: Yes normal to inspection and No edema Assessment and Plan Assessment & Plan (1) Type 2 diabetes mellitus with hyperglycemia: Comment: Dr. Turner Code(s): E11.65 - Type 2 diabetes mellitus with hyperglycemia Plan: Decrease the amount of carbohydrate intake, pasta, bread, rice and potatoes are all sugar and that is aside from all the sweet stuff, remember that fruits are good but they are Sweet also. Hemoglobin A1c goal of less than 6.5 patient is being followed up by Endocrinology now on Tresiba metformin Jardiance. (2) Hypertension: Code(s): I10 - Essential (primary) hypertension Qualifiers: Hypertension type: primary hypertension Qualified Code(s): I10 - Essential (primary) hypertension Plan: Continue with blood pressure medication. Decrease salt intake and exercise takes amlodipine 5 mg once a day atenolol 100 mg once a day losartan 100 mg once a day (3) GERD (gastroesophageal reflux disease): Code(s): K21.9 - Gastro-esophageal reflux disease without esophagitis Qualifiers: Esophagitis presence: without esophagitis Qualified Code(s): K21.9 - Gastro-esophageal reflux disease without esophagitis Plan: Avoid the foods that causes that usually spicy foods, tomato products, juices, coffee, soda and foods that your sensitive to. After eating do not lie down, allow 3-4 hours before in lie down. And keep the head of bed above 30 degrees to avoid the acid from going up. (4) Obesity: Comment: SHE IS GROSSLY OBESE. HAS LOST SOME WEIGHT . * Luckily her home-based sleep study was negative for sleep apnea. Code(s): E66.9 - Obesity, unspecified Qualifiers: Obesity type: due to excess calories Obesity classification: adult class 3 (BMI >= 40) Serious obesity comorbidity presence: with serious comorbidity Body mass index: BMI 40.0-44.9 Qualified Code(s): E66.01 - Morbid (severe) obesity due to excess calories; Z68.41 - Body mass index [BMI]40.0-44.9, adult Plan: Diet and exercise (5) Hypercholesterolemia: Code(s): E78.00 - Pure hypercholesterolemia, unspecified Plan: Avoid fried foods, chicken skin, eggs, butter margarine, pastries and meat. Be it pork or beef they have a lot of cholesterol LDL goal of less than 100 and triglyceride of less than 150 on atorvastatin 10 mg once a day (6) Restrictive lung disease: Comment: CONFIRMED BY COMPLETE PFT SHE DOES HAVE SEVERE RESTRICTIVE PULMONARY DISORDER, IT SEEMS TO HAVE IMPROVED. Code(s): J98.4 - Other disorders of lung Plan: Continue to follow-up with Pulmonary patient has oxygen this is COVID-19 infection related. (7) Rhinitis medicamentosa: Code(s): J31.0 - Chronic rhinitis; T48.5X5A - Adverse effect of other hrxc-ajhyni-xley drugs, initial encounter Plan: has been using oxymetozoline- advised to stop using. Medications: New azelastine administer into each nostril 2 sprays intranasal Q12H 30 mL 0RF J31.0 - Chronic rhinitis, T48.5X5A - Adverse effect of other yuum-khdpgh-vsrx drugs, initial encounter mometasone 50 mcg/actuation (Nasonex 24hr Allergy) administer into each nostril 2 sprays intranasal DAILY PRN 17 grams 2RF nasal congestion J31.0 - Chronic rhinitis, T48.5X5A - Adverse effect of other aoci-igknxg-uuxj drugs, initial encounter Coding Level of Care Code Est Pt Level 4 (69217) Complex EM visit Add On G2211 Diagnoses Type 2 diabetes mellitus with hyperglycemia E11.65 Primary hypertension I10 Hypertension type: primary hypertension Gastroesophageal reflux disease without esophagitis K21.9 Esophagitis presence: without esophagitis Class 3 severe obesity due to excess calories with serious comorbidity and body mass index (BMI) of 40.0 to 44.9 in adult E66.01; Z68.41 Obesity type: due to excess calories Obesity classification: adult class 3 (BMI >= 40) Serious obesity comorbidity presence: with serious comorbidity Body mass index: BMI 40.0-44.9 Hypercholesterolemia E78.00 Restrictive lung disease J98.4 Rhinitis medicamentosa J31.0; T48.5X5A
== END 2023-11-21 10:32 | disposition home or self-care (01) ==
PROVIDERS: PCP Internal Medicine; Visit Provider Internal Medicine
DX: E11.65 Type 2 diabetes mellitus with hyperglycemia (principal); I10 Essential (primary) hypertension; E78.00 Pure hypercholesterolemia, unspecified; K21.9 Gastro-esophageal reflux disease without esophagitis; J98.4 Other disorders of lung; J31.0 Chronic rhinitis; T48.5X5A Adverse effect of other anti-common-cold drugs, initial encounter
CPT/HCPCS: 99214; G2211

== ENCOUNTER 2024-01-15 10:16 | Outpatient (AMB) | payer OTHER, SELFPAY ==
[2024-01-15 10:35] VITALS: BP 168/92; PULSE 88; O2SAT 99; BMI 40.2
--- NOTE | 2024-01-15 10:35 | A.OFFPC_ITS ---
Vital Signs 01/15/24 10:35 Height 5 ft 2 in Weight 220 lb BMI 40.2 BP 168/92 H Blood Pressure Location Lt brachial Position Sitting Pulse 88 Pulse Source Pulse Oximeter Pulse Oximetry (%) 99 Oxygen Delivery Method Room Air Intake Visit Reasons: Difficulty Breathing/CT scan Allergies egg Allergy (Severe, Verified 01/15/24 10:35) throat swells up milk Allergy (Severe, Verified 01/15/24 10:35) throat swells up avocado Allergy (Intermediate, Verified 01/15/24 10:35) lip swelling lisinopril Allergy (Unknown, Verified 01/15/24 10:35) Unknown dulaglutide [From Trulicity] Adverse Reaction (Intermediate, Verified 01/15/24 10:35) pancreatitis pioglitazone Adverse Reaction (Intermediate, Verified 01/15/24 10:35) Swelling Tobacco use date assessed: 05/17/23 Dental Screening Dental Screen Date: 05/17/23 HPI Difficulty Breathing/CT scan HPI Details 53-year-old obese female with diabetes m ellitus hypertension GERD hypercholesterolemia restrictive lung disease with post COVID 19 infection related. Last seen in 11/29/2023. Patient is here for an acute problem. Urgent center 01/09/2024 dx maxillary sinusitis rx augmentin 875, xyzal, medrol dose param xray done - no results.no fevers states - states was having shoulder pain - better. but complains of low back and cervical back pain when taking augmentin. discussed that CT scan sinus if not better . he is better now [facility] Medical History (Updated 01/15/24 @ 10:48 by Cally Rizvi MD) Hypoxemia Witnessed apneic spells Eczema Hordeolum externum left eye, unspecified eyelid Obesity Headache History of acute respiratory distress syndrome (ARDS) Persistent insomnia Respiratory failure with hypoxia Pneumonia due to severe acute respiratory syndrome coronavirus 2 (SARS-CoV-2) COVID-19 virus infection Cavitary lesion of lung Obesity (BMI 30-39.9) Anxiety and depression Hypersomnia Acute neck sprain Post covid-19 condition, unspecified Restrictive lung disease Lower extremity edema Pneumonia COVID-19 virus infection Diabetic nephropathy associated with type 2 diabetes mellitus Diabetic neuropathy associated with type 2 diabetes mellitus Acute meniscal tear of right knee Right thyroid nodule Psoriasis Hypertension Type 2 diabetes mellitus with hyperglycemia Hypercholesterolemia Osteoarthritis Insomnia GERD (gastroesophageal reflux disease) Diabetic nephropathy Bilateral carpal tunnel syndrome Surgical History History of D&C History of cholecystectomy History of section History of tubal ligation Family History Father Medical history unknown Mother Diabetes Hypertension Maternal Grandmother Pancreatic cancer Maternal Aunt Breast cancer Sister Breast cancer Social History Household Members: Family Housing: Apartment Are you a primary care provider to a significant other at home: No Do you presently have visiting nurse or other home services: No Alcohol intake: never Patient Tobacco Use Status: Never used Tobacco Tobacco use type: Cigarette e-Cigarette/Vaping Use: Never Used Second Hand Smoke Exposure: Yes service: No Current occupational status: disabled Cognitive needs: No Hearing needs: No Vision needs: No Questionnaire PHQ-9 Over the last 2 weeks, how often have you been bothered by any of the following problems? 1. Little interest or pleasure in doing things: several days 2. Feeling down, depressed, or hopeless: several days 3. Trouble falling or staying asleep, or sleeping too much: several days 4. Feeling tired or having little energy: several days 5. Poor appetite or overeating: several days 6. Feeling bad about yourself - or that you are a failure or have let yourself or your family down: several days 7. Trouble concentrating on things, such as reading the newspaper or watching television: not at all 8. Moving or speaking so slowly that other people could have noticed. Or the opposite - being so fidgety or restless that you have been moving around a lot more than usual: not at all 9. Thoughts that you would be better off or of hurting yourself in some way: not at all Total score: 6 Depression Screening Interpretation: Negative Depression Screening Done: Yes Source: Developed by Drs. Delvin Head, Ashley Rahman, Vinod Manzanares and colleagues, with an educational jo-ann from [employer]. Thrive Questionnaire Date Thrive assessed: 03/27/23 AUDIT C Alcohol Use Questionnaire (AUDIT-C) 1. How often do you have a drink containing alcohol?: Never 3. How often do you have six or more drinks on one occasion?: Never Total Score: 0 NANCY-7 AMB Questionnaire NANCY-7 Date NANCY - 7 assessed: 03/27/23 Source: Developed by Drs. Delvin Head, Ashley Rahman, Vinod Manzanares and colleagues, with an educational jo-ann from [employer]. Physical exam (Primary Care) Vital Signs: Last Vital Signs Pulse 88 01/15/24 10:35 BP 168/92 H 01/15/24 10:35 Pulse Ox 99 01/15/24 10:35 Oxygen Delivery Method Room Air 01/15/24 10:35 BMI result Body Mass Index 40.2 Tobacco/Smoking Status: Tobacco use Status Tobacco use date assessed 05/17/23 01/15/24 10:37 Patient Tobacco Use Status Never used Tobacco 01/15/24 10:37 Tobacco use type Cigarette 01/15/24 10:37 e-Cigarette/Vaping Use Never Used 01/15/24 10:37 PHQ-9: PHQ-9 Score PHQ-9: Total score 6 01/15/24 10:46 Depression Screening Interpretation: Negative Thrive Assessment: Date of Thrive Assessment Date Thrive assessed 03/27/23 01/15/24 10:37 Const General: alert; No acute distress Eyes Conjunctivae: conjunctivae normal Resp Auscultation: clear to auscultation bilaterally Cardio Rate: regular rate Rhythm: regular rhythm GI Inspection: Yes normal to inspection Extrem General: Yes normal to inspection and No edema Results AMB Hemoglobin A1c AMB Hemoglobin A1c 7.4 % Last Edit by Charla Abreu CMA on 01/15/24 10 :53 Coding Level of Care Code Est Pt Level 4 (94407) Diagnoses Type 2 diabetes mellitus with hyperglycemia, with long-term current use of insulin E11.65; Z79.4 Diabetes mellitus usp insulin use: with usp use Restrictive lung disease J98.4 Sinusitis J32.9 Sinusitis location: maxillary Assessment & Plan Assessment & Plan (1) Type 2 diabetes mellitus with hyperglycemia: Comment: Dr. Turner Code(s): E11.65 - Type 2 diabetes mellitus with hyperglycemia Category: Medical Qualifiers: Diabetes mellitus usp insulin use: with termite treater helper use Qualified C ode(s): E11.65 - Type 2 diabetes mellitus with hyperglycemia; Z79.4 - care home (current) use of insulin Plan: Decrease the amount of carbohydrate intake, pasta, bread, rice and potatoes are all sugar and that is aside from all the sweet stuff, remember that fruits are good but they are Sweet also. Hemoglobin A1c goal of less than 6.5. On Jardiance 25 mg once a day metformin 500 mg once a day and Tresiba 22 units once a day (2) Restrictive lung disease: Comment: CONFIRMED BY COMPLETE PFT SHE DOES HAVE SEVERE RESTRICTIVE PULMONARY DISORDER, IT SEEMS TO HAVE IMPROVED. Code(s): J98.4 - Other disorders of lung Category: Medical Plan: contrinue with albuterol and BREO (3) Sinusitis: Code(s): J32.9 - Chronic sinusitis, unspecified Category: Social Hx Qualifiers: Sinusitis location: maxillary Plan: recently under treatment with augmentin. feeling better. no need for CT scan Orders: Orders AMB Hemoglobin A1c Today Z13.9 - Encounter for screening, unspecified
== END 2024-01-15 11:02 | disposition home or self-care (01) ==
LOC: HO.HMCH 10:16
PROVIDERS: PCP Internal Medicine; Visit Provider Internal Medicine
DX: E11.65 Type 2 diabetes mellitus with hyperglycemia (principal); Z79.4 Long term (current) use of insulin; J98.4 Other disorders of lung; J32.9 Chronic sinusitis, unspecified; Z13.9 Encounter for screening, unspecified

== ENCOUNTER → 2024-01-15 10:16 | Outpatient (BNVA) | payer OTHER, SELFPAY | PROVIDERS: PCP Internal Medicine; Visit Provider Internal Medicine | DX: E11.65 Type 2 diabetes mellitus with hyperglycemia (principal); J98.4 Other disorders of lung; J32.9 Chronic sinusitis, unspecified; Z79.4 Long term (current) use of insulin | CPT/HCPCS: 83036; 96127; 99212 ==

== ENCOUNTER 2024-01-22 10:35 | Outpatient (REF) | payer OTHER, SELFPAY ==
--- NOTE | ~2024-01-22 | MM_ITS ---
EXAMINATION: MM SCREENING DIGITAL BREAST TOMOSYNTHESIS, BILATERAL CLINICAL INFORMATION: Screening. Asymptomatic. COMPARISON: Mammography: Comparison is made with available priors TECHNIQUE: Digital breast mammography with tomosynthesis is performed in both the craniocaudal and mediolateral oblique views along with computer-aided detection (CAD). FINDINGS: There are scattered areas of fibroglandular density (ACR BI-RADS breast composition Category b). There are no significant masses, abnormal calcifications, or other abnormalities. MM/MM tomosynthesis screening BI IMPRESSION: No mammographic evidence of malignancy. ASSESSMENT: BI-RADS BI-RADS 1 - Negative RECOMMENDATION: Routine annual mammography screening. 1 year F/U This examination should not preclude the clinical evaluation of a suspicious palpable abnormality. This patient's information was entered into a reminder system with a target due date for their next mammogram. Electronically signed by: Megan Crowe DO 01/30/2024 06:20 PM JOCELINE
== END 2024-01-22 10:36 | disposition home or self-care (01) ==
LOC: HO.MAMMO 10:35
PROVIDERS: PCP Internal Medicine; Visit Provider Internal Medicine
DX: Z12.31 Encounter for screening mammogram for malignant neoplasm of breast (principal)
CPT/HCPCS: 77063; 77067

== ENCOUNTER → 2024-01-22 11:00 | Outpatient (BNV) | payer OTHER, SELFPAY | PROVIDERS: PCP Internal Medicine; Visit Provider Internal Medicine | DX: Z12.31 Encounter for screening mammogram for malignant neoplasm of breast (principal) | CPT/HCPCS: 77063; 77067 ==

== ENCOUNTER 2024-03-09 10:37 | Outpatient (AMB) | payer OTHER, SELFPAY ==
--- NOTE | 2024-03-09 10:44 | MHC.PC.OV ---
Vital Signs 03/09/24 10:45 Height 5 ft 2 in Weight 221 lb 2 oz BMI 40.4 BP 132/78 Blood Pressure Location Lt brachial Position Sitting Pulse 80 Pulse Source Pulse Oximeter Pulse Oximetry (%) 95 Oxygen Delivery Method Room Air Intake Visit Reasons: nasal congestion , DM Allergies egg Allergy (Severe, Verified 03/09/24 10:49) throat swells up milk Allergy (Severe, Verified 03/09/24 10:49) throat swells up avocado Allergy (Intermediate, Verified 03/09/24 10:49) lip swelling lisinopril Allergy (Unknown, Verified 03/09/24 10:49) Unknown dulaglutide [From Trulicity] Adverse Reaction (Intermediate, Verified 03/09/24 10:49) pancreatitis pioglitazone Adverse Reaction (Intermediate, Verified 03/09/24 10:49) Swelling Tobacco use date assessed: 03/09/24 Dental Screening Dental Screen Date: 03/09/24 Did you have a dental visit in the last 12 months?: No Did you have a dental problem in the last 6 months where you did not have access to dental care?: No Was dental information given to patient?: Patient declined HPI nasal congestion , DM HPI Details The patient is a 53-year-old female presenting with complications related to Type 2 Diabetes Mellitus, including poorly controlled blood glucose levels. Currently, her HbA1c is noted to be 8.2. She experiences diarrhea attributed to a higher dose of metformin and is currently on a once-a-day regimen along with Trusiba and Jardiance. The patient reports arm and finger numbness with associated carpal tunnel syndrome, for which she has declined surgical intervention. She also experiences headaches localized to one side of the head, previously undiagnosed as migraines, and has not used migraine-specific medication. These headaches do not coincide with symptoms of congestion. The patient experiences breathing difficulties, especially on exertion, and reports using oxygen at home intermittently. Common oxygen saturation levels are 95%. She had been previously evaluated for sleep apnea but was tested negative. The patient monitors her condition and avoids consistent oxygen usage due to weight concerns. Her hypertension is currently well-controlled, and she avoids using sleep apnea machinery despite suggestions otherwise. The patient does not have vertigo but reports dizziness and uses glasses. A recent colonoscopy is pending results, and she is under the care of an fireworks inspector for diabetes management. Seasonal affects play a role in her respiratory symptoms. [facility] Medical History Hypoxemia Witnessed apneic spells Eczema Hordeolum externum left eye, unspecified eyelid Obesity Headache History of acute respiratory distress syndrome (ARDS) Persistent insomnia Respiratory failure with hypoxia Pneumonia due to severe acute respiratory syndrome coronavirus 2 (SARS-CoV-2) COVID-19 virus infection Cavitary lesion of lung Obesity (BMI 30-39.9) Anxiety and depression Hypersomnia Acute neck sprain Post covid-19 condition, unspecified Restrictive lung disease Lower extremity edema Pneumonia COVID-19 virus infection Diabetic nephropathy associated with type 2 diabetes mellitus Diabetic neuropathy associated with type 2 diabetes mellitus Acute meniscal tear of right knee Right thyroid nodule Psoriasis Hypertension Type 2 diabetes mellitus with hyperglycemia Hypercholesterolemia Osteoarthritis Insomnia GERD (gastroesophageal reflux disease) Diabetic nephropathy Bilateral carpal tunnel syndrome Surgical History History of D&C History of cholecystectomy History of section History of tubal ligation Family History Father Medical history unknown Mother Diabetes Hypertension Maternal Grandmother Pancreatic cancer Maternal Aunt Breast cancer Sister Breast cancer Social History Household Members: Family Housing: Apartment Are you a primary regular senior care provider to a significant other at home: No Do you presently have visiting nurse or other home services: No Alcohol intake: never Patient Tobacco Use Status: Never used Tobacco Tobacco use type: Cigarette e-Cigarette/Vaping Use: Never Used Second Hand Smoke Exposure: Yes service: No Current occupational status: disabled Cognitive needs: No Hearing needs: No Vision needs: No Questionnaire PHQ-9 Over the last 2 weeks, how often have you been bothered by any of the following problems? 1. Little interest or pleasure in doing things: several days 2. Feeling down, depressed, or hopeless: several days 3. Trouble falling or staying asleep, or sleeping too much: several days 4. Feeling tired or having little energy: several days 5. Poor appetite or overeating: several days 6. Feeling bad about yourself - or that you are a failure or have let yourself or your family down: several days 7. Trouble concentrating on things, such as reading the newspaper or watching television: not at all 8. Moving or speaking so slowly that other people could have noticed. Or the opposite - being so fidgety or restless that you have been moving around a lot more than usual: not at all 9. Thoughts that you would be better off or of hurting yourself in some way: not at all Total score: 6 Depression Screening Interpretation: Negative Depression Screening Done: Yes Source: Developed by Drs. Delvin Head, Ashley Rahman, Vinod Manzanares and colleagues, with an educational jo-ann from [employer]. Thrive Questionnaire Date Thrive assessed: 03/09/24 I am a: Patient What is your living situation today?: I have a steady place to live Within the past 12 months, did the food you bought not last and you didn't have the money to get more?: Never true Within the past 12 months, did you worry whether your food would run out before you got money to buy more?: Never true Do you have trouble paying for medicines?: No Do you have trouble getting transportation to medical appointments?: No Do you have trouble paying your heating and electricity bill?: No Do you have trouble taking care of your child, family member or friend?: No Do you have trouble with day-to-day activities such as bathing, preparing meals, shopping, managing finances, etc.?: No Are you currently unemployed and looking for a job?: No Are you interested in more education?: No THRIVE Score: 0 AUDIT C Alcohol Use Questionnaire (AUDIT-C) 1. How often do you have a drink containing alcohol?: Never 3. How often do you have six or more drinks on one occasion?: Never Total Score: 0 NANCY-7 AMB Questionnaire NANCY-7 Date NANCY - 7 assessed: 03/09/24 Feeling nervous, anxious, or on edge: 0 = Not at all Not being able to stop or control worryin = Not at all Worrying too much about different things: 0 = Not at all Trouble relaxin = Not at all Being so restless that it is hard to sit still: 0 = Not at all Becoming easily annoyed or irritable: 0 = Not at all Feeling afraid as if something awful might happen: 0 = Not at all Total NANCY-7 score (0-4 normal; 5-9 mild; 10-14 moderate; 15-21 severe): 0 Source: Developed by Drs. Delvin Head, Ashley Rahman, Vinod Manzanares and colleagues, with an educational jo-ann from [employer]. Physical exam (Primary Care) Vital Signs: Last Vital Signs Pulse 80 03/09/24 10:45 BP 132/78 03/09/24 10:45 Pulse Ox 95 03/09/24 10:45 Oxygen Delivery Method Room Air 03/09/24 10:45 BMI result Body Mass Index 40.4 Tobacco/Smoking Status: Tobacco use Status Tobacco use date assessed 03/09/24 03/09/24 10:50 Patient Tobacco Use Status Never used Tobacco 03/09/24 10:50 Tobacco use type Cigarette 03/09/24 10:50 e-Cigarette/Vaping Use Never Used 03/09/24 10:50 PHQ-9: PHQ-9 Score PHQ-9: Total score 6 03/09/24 10:59 Depression Screening Interpretation: Negative Thrive Assessment: Date of Thrive Assessment Date Thrive assessed 03/09/24 03/09/24 10:50 Const General: alert; No acute distress Eyes Conjunctivae: conjunctivae normal Resp Auscultation: clear to auscultation bilaterally Cardio Rate: regular rate Rhythm: regular rhythm GI Inspection: Yes normal to inspection Extrem General: Yes normal to inspection and No edema Coding Level of Care Code Est Pt Level 4 (90842) Complex EM visit Add On G2211 Diagnoses Type 2 diabetes mellitus with hyperglycemia, with long-term current use of insulin E11.65; Z79.4 Diabetes mellitus senior care insulin use: with supervisor long goods use Post covid-19 condition, unspecified U09.9 Gastroesophageal reflux disease without esophagitis K21.9 Esophagitis presence: without esophagitis Migraine G43.909 Assessment & Plan Assessment & Plan (1) Type 2 diabetes mellitus with hyperglycemia: Comment: Dr. Turner Code(s): E11.65 - Type 2 diabetes mellitus with hyperglycemia Category: Medical Qualifiers: Diabetes mellitus supervisor long goods insulin use: with supervisor long goods use Qualified Code(s): E11.65 - Type 2 diabetes mellitus with hyperglycemia; Z79.4 - tank terminal gauger (current) use of insulin (2) Post covid-19 condition, unspecified: Comment: PATIENT CONTINUES TO HAVE, RESIDUAL INTERSTITIAL LUNG DISEASE, POST COVID. WITH SIGNIFICANT RESPIRATORY INSUFFICIENCY, AND REQUIRING O2 SUPPLEMENTATION. LAST CT SCAN OF THE CHEST in JUNE 2022 SHOWED CONTINUED RESOLUTION OF THE INTERSTITIAL DISEASE IN THE LOWER LOBES . NOW SHE HAS ONLY MINIMAL FIBROTIC STRANDS OVER THE BASES . Code(s): U09.9 - Post COVID-19 condition, unspecified Category: Medical (3) GERD (gastroesophageal reflux disease): Code(s): K21.9 - Gastro-esophageal reflux disease without esophagitis Category: Medical Qualifiers: Esophagitis presence: without esophagitis Qualified Code(s): K21.9 - Gastro-esophageal reflux disease without esophagitis (4) Migraine: Code(s): G43.909 - Migraine, unspecified, not intractable, without status migrainosus Category: Medical Plan: Patient is advised to eat healthy, keep well hydrated, keep active and have adequate sleep. Plan - Advise continued monitoring of blood glucose levels and adherence to current diabetes medications Trusiba, Jardiance, and adjusted metformin). - Recommend following through with endocrinology consultations for diabetes management. - Prescribe Sumatriptan for migraine headaches to be taken as needed. - Monitor and manage carpal tunnel symptoms conservatively; reevaluate if symptoms persist or worsen. - Encourage intermittent use of home oxygen therapy, especially during significant exertion, to aid breathing without reliance. - Reinforce maintenance of controlled blood pressure and close monitoring. - Instruct on the benefits of weight management to assist in overall health improvement and breathing difficulties. - Continue with conservative management and regular exercise to assist with respiratory symptoms. - Follow up on pending colonoscopy results and evaluate further based on outcomes. - Advise appropriate dietary modifications, including reduced rice consumption and increased quinoa intake. - Discuss safe practices for managing diabetes during holiday seasons and the impact of dietary choices on health. Medications: New sumatriptan succinate (Imitrex) do not exceed 4 doses per 24 hrs 50 mg PO .QD PRN 10 tabs 2RF migraine headache G43.909 - Migraine, unspecified, not intractable, without status migrainosus
[2024-03-09 10:45] VITALS: BP 132/78; PULSE 80; O2SAT 95; BMI 40.4
== END 2024-03-09 11:14 | disposition home or self-care (01) ==
PROVIDERS: PCP Internal Medicine; Visit Provider Internal Medicine
DX: E11.65 Type 2 diabetes mellitus with hyperglycemia (principal); Z79.4 Long term (current) use of insulin; U09.9 Post COVID-19 condition, unspecified; K21.9 Gastro-esophageal reflux disease without esophagitis; G43.909 Migraine, unspecified, not intractable, without status migrainosus

== ENCOUNTER 2024-03-12 09:32 | Outpatient (AMB) | payer OTHER, SELFPAY ==
[2024-03-12 09:54] VITALS: BP 140/92; PULSE 70; O2SAT 100; BMI 40.9
--- NOTE | 2024-03-12 09:54 | A.OFFVIS_ITS ---
Vital Signs 03/12/24 09:54 Height 5 ft 2 in Weight 223 lb 12.307 oz BMI 40.9 BP 140/92 H Blood Pressure Location Lt brachial Position Sitting Pulse 70 Pulse Source Pulse Oximeter Pulse Oximetry (%) 100 Oxygen Delivery Method Nasal Cannula Oxygen Flow Rate 5 Intake Visit Reasons: COPD Intake Note: pt is here for follow up and states she is using oxygen with exertion and sleeping on 5 liters and can sit with breaks. She does have some nasal dripping happening. Electronic Game Developer Required: No Allergies egg Allergy (Severe, Verified 03/12/24 10:15) throat swells up milk Allergy (Severe, Verified 03/12/24 10:15) throat swells up avocado Allergy (Intermediate, Verified 03/12/24 10:15) lip swelling lisinopril Allergy (Unknown, Verified 03/12/24 10:15) [facility] Adverse Reaction (Intermediate, Verified 03/12/24 10:15) pancreatitis pioglitazone Adverse Reaction (Intermediate, Verified 03/12/24 10:15) Swelling Medication List - Last Reconciled 03/12/24 by Zoila Knutson MD albuterol sulfate 90 mcg/actuation (Ventolin HFA) 4 puffs inhalation Q3H PRN amlodipine 5 mg PO DAILY apremilast (Otezla) 30 mg PO BID atenolol 100 mg PO DAILY atorvastatin 10 mg PO QPM azelastine 2 sprays intranasal Q12H blood pressure monitor (Blood Pressure Kit) As directed blood sugar diagnostic (FreeStyle Lite Strips) DIRECTED TESTS 4X/DAY blood-glucose meter (FreeStyle [place] Lite kit) As directed blood-glucose meter,continuous (FreeStyle Jared 3 [place]) Use daily As directed to monitor blood glucose blood-glucose sensor (FreeStyle Jared 3 Sensor device) Apply every 14 days As directed to monitor blood glucose Breo Ellipta 200-25 mcg/dose (fluticasone furoate-vilanterol) 1 inh inhalation DAILY NS calcipotriene 0.005% topical BID PRN cholecalciferol (vitamin D3) (Vitamin D3) 50 mcg PO DAILY clonazepam 1 mg PO BID PRN compress.stocking,knee,reg,lrg As directed 20-30 mm HG disposable gloves As directed divalproex 500 mg PO BID empagliflozin (Jardiance) 25 mg PO DAILY escitalopram oxalate 20 mg PO DAILY fexofenadine 180 mg PO DAILY 90 days fluticasone propionate 50 mcg/actuation (Flonase Allergy Relief) 2 sprays intranasal DAILY [HUMIDIFIER As directed] [incontinence wipes As directed] ipratropium bromide 2.5 mL inhalation Q6H PRN 30 days lancets (FreeStyle Lancets) As directed losartan 100 mg PO DAILY metformin 500 mg PO DAILY nebulizers (Aeroneb Go Nebulizer) As directed olopatadine 0.1% 1 drp ophthalmic (eye) BID Oxygen Home Use As directed pen needle, diabetic (BD Patti 2nd Gen Pen Needle) USE PARMINDER LO INDICADO DIRECTED INJECT ONCE A DAY quetiapine 100 mg PO BEDTIME [sanitary pads As directed] sumatriptan succinate (Imitrex) 50 mg PO .QD PRN Tresiba FlexTouch U-100 (insulin degludec) 22 units (0.22 mL) subcut BEDTIME NS Do you need a note to return to daycare/school/sports/work: No HPI HPI COPD: Details: 53 years old grossly obese, female with COPD, residual pulmonary fibrosis, obstructive sleep apnea/nocturnal hypoxemia, Is here for follow-up after 4 months. She has been relatively stable in the last 4 months without any acute infection or exacerbation. Uses O2 5 L/minute at night during sleep, and p.r.n. during the daytime. She claims that she sleeps well, during the daytime she does get short of breath if she exerts but is feeling okay at rest. [facility] Medical History Hypoxemia Witnessed apneic spells Eczema Hordeolum externum left eye, unspecified eyelid Obesity Headache History of acute respiratory distress syndrome (ARDS) Persistent insomnia Respiratory failure with hypoxia Pneumonia due to severe acute respiratory syndrome coronavirus 2 (SARS-CoV-2) COVID-19 virus infection Cavitary lesion of lung Obesity (BMI 30-39.9) Anxiety and depression Hypersomnia Acute neck sprain Post covid-19 condition, unspecified Restrictive lung disease Lower extremity edema Pneumonia COVID-19 virus infection Diabetic nephropathy associated with type 2 diabetes mellitus Diabetic neuropathy associated with type 2 diabetes mellitus Acute meniscal tear of right knee Right thyroid nodule Psoriasis Hypertension Type 2 diabetes mellitus with hyperglycemia Hypercholesterolemia Osteoarthritis Insomnia GERD (gastroesophageal reflux disease) Diabetic nephropathy Bilateral carpal tunnel syndrome Surgical History History of D&C History of cholecystectomy History of section History of tubal ligation Family History Father Medical history unknown Mother Diabetes Hypertension Maternal Grandmother Pancreatic cancer Maternal Aunt Breast cancer Sister Breast cancer Social History Household Members: Family Housing: Apartment Are you a primary health care attorney to a significant other at home: No Do you presently have visiting nurse or other home services: No Alcohol intake: never Patient Tobacco Use Status: Never used Tobacco Tobacco use type: Cigarette e-Cigarette/Vaping Use: Never Used Second Hand Smoke Exposure: Yes service: No Current occupational status: disabled Cognitive needs: No Hearing needs: No Vision needs: No Review of Systems Const All systems reviewed & are unremarkable except as noted in HPI and below Eyes Reports no additional complaints ENT Reports no additional complaints Card Denies chest pain, Denies irregular heart rhythm and Denies leg edema Resp Reports as per HPI GI Reports no additional complaints Reports no additional complaints Musc Reports abnormal gait (WEAK AND SOMETIME HAS TO USE A CANE) and Reports back pain Skin/Breast Reports system reviewed and no additional complaints, except as documented Neuro Reports abnormal gait (WEAK AND SOMETIME HAS TO USE A CANE) Psych Reports no additional complaints Physical Exam Vital Signs: Last Vital Signs Pulse 70 03/12/24 09:54 BP 140/92 H 03/12/24 09:54 Pulse Ox 100 03/12/24 09:54 Oxygen Delivery Method Nasal Cannula 03/12/24 09:54 Oxygen Flow Rate 5 03/12/24 09:54 BMI result Body Mass Index 40.9 Const General: healthy appearing, comfortable, no acute distress, alert and awake Orientation/consciousness: patient oriented x3 HEENT Head: Yes normal to inspection General nose exam: No nasal polyps present and No nasal discharge present Face and sinus: Yes sinuses nontender Mouth: oropharynx normal Throat: Yes posterior oropharynx normal Eyes General: appearance normal, both eyes and all related structures Neck Neck: Yes normal visual inspection, Yes no lymphadenopathy, Yes trachea midline and Yes no JVD Thyroid: Thyroid normal Chest Chest palpation & inspection: normal inspection of the chest, normal palpation of entire chest wall and no tenderness Resp Other: PERCUSSION NOTE IS RESONANT, EXCEPT OVER THE BASILAR AREAS WHERE IT IS SOMEWHAT DIMINISHED DUE TO OBESITY .. BREATH SOUNDS ARE DECREASED OVER THE LOWER LOBES BUT CLEAR . NO DEFINITE CREPITATIONS OR WHEEZES ARE HEARD . Cardio Palpation: normal PMI Rate: regular rate Rhythm: regular rhythm Heart sounds: no gallops and no murmurs Peripheral pulses: Peripheral pulses 2+ throughout GI Palpation (GI): Soft to palpation, nontender, No hepatosplenomegaly present, no masses and Other GI palpation findings present (ABDOMEN IS MODERATELY OBESE) Auscultation: normal bowel sounds Back/Spine/Pelvis Thoracic/Lumbar Spine: thoracic and lumbar spine normal to inspection and thoraco-lumbar ROM limited Skin General skin exam: no rashes or lesions noted Neuro General: patient oriented x3, No gait normal (IMPAIRED DUE TO WEAKNESS OF THE LOWER EXTREMITIES, WHEELCHAIR TO WALKER.) and no focal motor deficits Cranial nerves: Yes CN's II-XII intact bilaterally Extrem General: Yes normal to inspection, Yes no clubbing, cyanosis or edema and Yes no calf tenderness Psych Appearance: grossly normal and well kempt Speech and movement: Normal speech and movement present Assessment & Plan Assessment & Plan (1) Obesity: Comment: SHE IS GROSSLY OBESE. HAS LOST SOME WEIGHT . * Luckily her home-based sleep study was negative for sleep apnea. Code(s): E66.9 - Obesity, unspecified Category: Medical Qualifiers: Obesity type: due to excess calories Obesity classification: adult class 3 (BMI >= 40) Serious obesity comorbidity presence: with serious comorbidity Body mass index: BMI 40.0-44.9 Qualified Code(s): E66.01 - Morbid (severe) obesity due to excess calories; Z68.41 - Body mass index [BMI]40.0- 44.9, adult Plan: Stressed that she needs to lose more weight. (2) Restrictive lung disease: Comment: CONFIRMED BY COMPLETE PFT . SHE DOES HAVE SEVERE RESTRICTIVE PULMONARY DISORDER, CLINICALLY IS IMPROVING SLOWLY. SHE MAY ALSO MILD OBSTRUCTIVE COMPONENT. Code(s): J98.4 - Other disorders of lung Category: Medical Plan: AGAIN ADVISED THAT SHE NEEDS TO LOSE WEIGHT SLOWLY. CONTINUE TO DO DEEP BREATHING. EXERCISES TO ON 3 TIMES A DAY CONTINUE TO USE BREO ELLIPTA 200-251 INHALATION DAILY (3) Hypoxemia: Comment: SHE HAS HAD NOCTURNAL AND EXERCISE INDUCED HYPOXEMIA A RESULT OF ARDS, AND RESIDUAL FIBROTIC CHANGES IN THE LUNGS. CURRENTLY USES O2 5 L/MINUTE AT NIGHT, AND P.R.N. DURING THE DAYTIME. Code(s): R09.02 - Hypoxemia Category: Medical Plan: I ADVISED TO CUT DOWN THE O2 TO 4 L/MINUTE AT NIGHT AND P.R.N. DURING THE DAYTIME. SHE DOES HAVE PORTABLE UNIT AND BRINGS ALONG WHEN SHE COMES TO THE OFFICE. Coding Level of Care Code Est Pt Level 3 (82054) Diagnoses Class 3 severe obesity due to excess calories with serious comorbidity and body mass index (BMI) of 40.0 to 44.9 in adult E66.01; Z68.41 Obesity type: due to excess calories Obesity classification: adult class 3 (BMI >= 40) Serious obesity comorbidity presence: with serious comorbidity Body mass index: BMI 40.0-44.9 Restrictive lung disease J98.4 Hypoxemia R09.02
== END 2024-03-12 10:16 | disposition home or self-care (01) ==
PROVIDERS: PCP Internal Medicine; Visit Provider Internal Medicine
DX: E66.01 Morbid (severe) obesity due to excess calories (principal); Z68.41 Body mass index [BMI] 40.0-44.9, adult; J98.4 Other disorders of lung; R09.02 Hypoxemia
CPT/HCPCS: 99213

== ENCOUNTER → 2024-03-12 09:32 | Outpatient (BNVA) | payer OTHER, SELFPAY | PROVIDERS: PCP Internal Medicine; Visit Provider Internal Medicine | DX: J98.4 Other disorders of lung (principal); R09.02 Hypoxemia; E66.01 Morbid (severe) obesity due to excess calories; Z68.41 Body mass index [BMI] 40.0-44.9, adult | CPT/HCPCS: 99212 ==

== ENCOUNTER 2024-05-01 08:15 | Outpatient (AMB) | payer OTHER, SELFPAY ==
[2024-05-01 08:23] VITALS: BP 146/90; PULSE 73; BMI 41.8
--- NOTE | 2024-05-01 08:23 | MHC.OFFVIS ---
Vital Signs 05/01/24 08:23 Height 5 ft 2 in Weight 228 lb 9.91 oz BMI 41.8 BP 146/90 H Blood Pressure Location Lt brachial Position Sitting Pulse 73 Pulse Source Pulse Oximeter Intake Visit Reasons: DM Intake Note: Patient present today for Type 2 Diabetes Mellitus Last Diabetic eye exam: 2023 Last Podiatry Visit: Doesn't have one Random Glucose:138 mg/dl HgA1C: 8.8% Balance Assembler Required: Yes Balance Assembler Language: Engineering Faculty Services: Balance Assembler Present Balance Assembler Name: Freya [id number] Information Interpreted: non-clinical & clinical Accompanied by: Self / Same As Patient Allergies egg Allergy (Severe, Verified 05/01/24 08:28) throat swells up milk Allergy (Severe, Verified 05/01/24 08:28) throat swells up avocado Allergy (Intermediate, Verified 05/01/24 08:28) lip swelling lisinopril Allergy (Unknown, Verified 05/01/24 08:28) Unknown dulaglutide [From Trulicity] Adverse Reaction (Intermediate, Verified 05/01/24 08:28) pancreatitis pioglitazone Adverse Reaction (Intermediate, Verified 05/01/24 08:28) Swelling HPI HPI DM: Details: Patient is a 53-year-old female with a significant past medical history of hypertension, hyperlipidemia, type 2 diabetes, peripheral vascular disease, diabetic nephropathy, and goiter presenting today for follow-up regarding her diabetes. Endo: DM-A1c today came 8.8. She is currently on Jardiance 25 mg, metformin 500 mg daily, Tresiba 22 units at bedtime. -does not tolerate higher doses of metformin. -in the past had pancreatitis while on trulicity -lantus caused swelling and join paints She has not had the sensor for one month due to issues with supply but now has at home and has not applied it. CGM-Has not been using the freestyle jared She states she has only had 1 high glucose of 211. Denies any symptoms of hypoglycemic events. States that she has felt low in the past and her symptoms include. She corrects hypoglycemia with glucose tabs or orange juice if needed. She does admit to not doing as much exercise or eating as healthy as she was previously doing. She has gained weight since the fall. on statin and arb neurpoathy-intermittently gets tingling but no loss of sensation or weakness. No pain . nephropathy- last urine 2022 shows microalbuminuria, does not see nephrolology, on arb. CV: bp today in the office is 146/90 She is currently on losartan 100 mg daily, atenolol 100 mg daily, amlodipine 5 mg. Her last LDL was 90. She is on atorvastatin 10 mg nightly. [facility] Medical History Hypoxemia Witnessed apneic spells Eczema Hordeolum externum left eye, unspecified eyelid Obesity Headache History of acute respiratory distress syndrome (ARDS) Persistent insomnia Respiratory failure with hypoxia Pneumonia due to severe acute respiratory syndrome coronavirus 2 (SARS-CoV-2) COVID-19 virus infection Cavitary lesion of lung Obesity (BMI 30-39.9) Anxiety and depression Hypersomnia Acute neck sprain Post covid-19 condition, unspecified Restrictive lung disease Lower extremity edema Pneumonia COVID-19 virus infection Diabetic nephropathy associated with type 2 diabetes mellitus Diabetic neuropathy associated with type 2 diabetes mellitus Acute meniscal tear of right knee Right thyroid nodule Psoriasis Hypertension Type 2 diabetes mellitus with hyperglycemia Hypercholesterolemia Osteoarthritis Insomnia GERD (gastroesophageal reflux disease) Diabetic nephropathy Bilateral carpal tunnel syndrome Surgical History History of D&C History of cholecystectomy History of section History of tubal ligation Family History Father Medical history unknown Mother Diabetes Hypertension Maternal Grandmother Pancreatic cancer Maternal Aunt Breast cancer Sister Breast cancer Social History Household Members: Family Housing: Apartment Are you a primary interior plant caretaker to a significant other at home: No Do you presently have visiting nurse or other home services: No Alcohol intake: never Patient Tobacco Use Status: Never used Tobacco Tobacco use type: Cigarette e-Cigarette/Vaping Use: Never Used Second Hand Smoke Exposure: Yes service: No Current occupational status: disabled Cognitive needs: No Hearing needs: No Vision needs: No Physical Exam Vital Signs: Last Vital Signs Pulse 73 05/01/24 08:23 BP 146/90 H 05/01/24 08:23 BMI result Body Mass Index 41.8 Const Orientation/consciousness: patient oriented x3 Neck Neck: Yes no lymphadenopathy Thyroid: Thyroid normal Carotids: no bruits Resp Auscultation: clear to auscultation bilaterally Cardio Rate: regular rate Rhythm: regular rhythm Heart sounds: S1 normal heart sound present and S2 normal heart sound present Peripheral pulses: dorsalis pedis present Neuro General: patient oriented x3, gait normal and no focal motor deficits Extrem Other: Monofilament sensation intact bilaterally. Vibratory sensation intact bilaterally. Skin intact. General: Yes normal to inspection Results AMB Hemoglobin A1c AMB Hemoglobin A1c 8.8 % Last Edit by JENNIFER Pascual on 05/01/24 08:44 Results Reviewed Results Reviewed: Laboratory Last Values Glucose (Clinic) 138 mg/dL (60-115) H 05/01/24 08:31 Laboratory Tests 10/29/23 01/15/24 08:10 10:37 Hgb A1c (Clinic) 7.4 H AST 15 ALT 19 Triglycerides 156 H Cholesterol 170 LDL Cholesterol, Calc 90 HDL Cholesterol 49 Assessment & Plan Assessment & Plan (1) Type 2 diabetes mellitus with hyperglycemia: Code(s): E11.65 - Type 2 diabetes mellitus with hyperglycemia Category: Medical Qualifiers: Diabetes mellitus tank terminal gauger insulin use: with tank terminal gauger use Qualified Code(s): E11.65 - Type 2 diabetes mellitus with hyperglycemia; Z79.4 - alf (current) use of insulin Plan: Increase Tresiba to 30 units. We did discuss adding Humalog address this at our follow up when she starts where the sensors again. She has them at home and states that she will start wearing them. She will continue with the Jardiance and metformin dosing. Advised one-month follow up or sooner if needed (2) Hypertension: Code(s): I10 - Essential (primary) hypertension Category: Medical Qualifiers: Hypertension type: primary hypertension Qualified Code(s): I10 - Essential (primary) hypertension Plan: Elevated above goal. States that she is compliant with her antihypertensive regimen. She we will monitor this at home as it was previously normal. We did discuss that she has had some weight gain and I have encouraged dietary and lifestyle modifications. When she returns in 1 month we discussed possibly adjusting regimen if still elevated. (3) Hypercholesterolemia: Code(s): E78.00 - Pure hypercholesterolemia, unspecified Category: Medical Plan: We will continue to monitor. Continue with the atorvastatin. Orders: Orders AMB Hemoglobin A1c Today E11.65 - Type 2 diabetes mellitus with hyperglycemia, Z13.9 - Encounter for screening, unspecified, Z79.4 - assistant terminal manager (current) use of insulin Medications: New lancets (FreeStyle Lancets) use daily as directed to check blood glucose 100 ea 3RF E11.65 - Type 2 diabetes mellitus with hyperglycemia Changed From Tresiba FlexTouch U-100 (insulin degludec) 22 units (0.22 mL) subcut BEDTIME 15 mL 4RF NS To Tresiba FlexTouch U-100 (insulin degludec) 30 units (0.3 mL) subcut BEDTIME 15 mL 4RF NS Refilled blood sugar diagnostic (FreeStyle Lite Strips) DIRECTED TESTS 4X/DAY 100 strips 8RF E11.65 - Type 2 diabetes mellitus with hyperglycemia blood-glucose sensor (FreeStyle Jared 3 Sensor device) Apply every 14 days As directed to monitor blood glucose 2 ea 11RF E11.9 - Type 2 diabetes mellitus without complications, Z79.4 - assistant terminal manager (current) use of insulin Coding Level of Care Code Est Pt Level 4 (76622) Complex EM visit Add On G2211 Diagnoses Type 2 diabetes mellitus with hyperglycemia, with long-term current use of insulin E11.65; Z79.4 Diabetes mellitus usp insulin use: with tank terminal gauger use Primary hypertension I10 Hypertension type: primary hypertension Hypercholesterolemia E78.00
[2024-05-01 08:35] LABS: Glucose, Whole Blood 138 mg/dL (60-115)
== END 2024-05-01 08:49 | disposition home or self-care (01) ==
PROVIDERS: PCP Internal Medicine; Visit Provider Physician Assistant
DX: E11.65 Type 2 diabetes mellitus with hyperglycemia (principal); Z79.4 Long term (current) use of insulin; I10 Essential (primary) hypertension; E78.00 Pure hypercholesterolemia, unspecified; Z13.9 Encounter for screening, unspecified

== ENCOUNTER → 2024-05-01 08:15 | Outpatient (BNVA) | payer OTHER, SELFPAY | PROVIDERS: PCP Internal Medicine; Visit Provider Physician Assistant | DX: E11.65 Type 2 diabetes mellitus with hyperglycemia (principal); E78.00 Pure hypercholesterolemia, unspecified; I10 Essential (primary) hypertension; Z79.4 Long term (current) use of insulin | CPT/HCPCS: 82947; 83036; 99212 ==

== ENCOUNTER 2024-05-29 08:46 | Outpatient (AMB) | payer OTHER, SELFPAY ==
[2024-05-29 08:59] VITALS: BP 138/74; PULSE 78; BMI 41.9
--- NOTE | 2024-05-29 08:59 | MHC.OFFVIS ---
Vital Signs 05/29/24 08:59 Height 5 ft 2 in Weight 229 lb 4.492 oz BMI 41.9 BP 138/74 Blood Pressure Location Rt brachial Position Sitting Pulse 78 Pulse Source Pulse Oximeter Intake Visit Reasons: DM Intake Note: Patient presents today for a follow-up on Type 2 Diabetes Mellitus: Last Diabetic eye exam was on: 2023 Last Podiatry exam was on: Patient does not see a Lumber Marker Most recent HbA1c: 8.8%, 05/01/2024 Random Glucose- 190 mg/dL, Today Photographic Process Worker Required: Yes Photographic Process Worker Language: Inspector Final Assembly Electrical Services: Photographic Process Worker Present (Verified Person ULISSES) Information Interpreted: non-clinical & clinical Accompanied by: Self / Same As Patient Allergies egg Allergy (Severe, Verified 05/01/24 08:28) throat swells up milk Allergy (Severe, Verified 05/01/24 08:28) throat swells up avocado Allergy (Intermediate, Verified 05/01/24 08:28) lip swelling lisinopril Allergy (Unknown, Verified 05/01/24 08:28) Unknown dulaglutide [From Trulicity] Adverse Reaction (Intermediate, Verified 05/01/24 08:28) pancreatitis pioglitazone Adverse Reaction (Intermediate, Verified 05/01/24 08:28) Swelling HPI HPI DM: Details: Patient is a 53-year-old female with a significant past medical history of hypertension, hyperlipidemia, type 2 diabetes, peripheral vascular disease, diabetic nephropathy, and goiter presenting today for follow-up regarding her diabetes. Photographic Process Worker: [id number] Stephanie Endo: DM-Last A1c was 8.8. She is currently on Jardiance 25 mg, metformin 500 mg daily, Tresiba 25 units at bedtime. -She took 30 units of tresiba and felt like her glucose was low Previous Meds: does not tolerate higher doses of metformin. pancreatitis while on trulicity. lantus caused swelling and join paints. Actos caused swelling CGM- GMI 7.2%, 34% hyper 66%, 0% hypoglycemia She states she has only had 1 high glucose of 211. Denies any symptoms of hypoglycemic events since reducing the Tresiba down to 25 units. States that she has felt low in the past and her symptoms include. She corrects hypoglycemia with glucose tabs or orange juice if needed. She does admit to not doing as much exercise or eating as healthy as she was previously doing. She has gained weight since the fall. on statin and arb neurpoathy-intermittently gets tingling but no loss of sensation or weakness. No pain . nephropathy- last urine 2022 shows microalbuminuria, does not see nephrolology, on arb. CV: bp today in the office is 138/74 She is currently on losartan 100 mg daily, atenolol 100 mg daily, amlodipine 5 mg. Her last LDL was 90. She is on atorvastatin 10 mg nightly [facility] Medical History Hypoxemia Witnessed apneic spells Eczema Hordeolum externum left eye, unspecified eyelid Obesity Headache History of acute respiratory distress syndrome (ARDS) Persistent insomnia Respiratory failure with hypoxia Pneumonia due to severe acute respiratory syndrome coronavirus 2 (SARS-CoV-2) COVID-19 virus infection Cavitary lesion of lung Obesity (BMI 30-39.9) Anxiety and depression Hypersomnia Acute neck sprain Post covid-19 condition, unspecified Restrictive lung disease Lower extremity edema Pneumonia COVID-19 virus infection Diabetic nephropathy associated with type 2 diabetes mellitus Diabetic neuropathy associated with type 2 diabetes mellitus Acute meniscal tear of right knee Right thyroid nodule Psoriasis Hypertension Type 2 diabetes mellitus with hyperglycemia Hypercholesterolemia Osteoarthritis Insomnia GERD (gastroesophageal reflux disease) Diabetic nephropathy Bilateral carpal tunnel syndrome Surgical History History of D&C History of cholecystectomy History of section History of tubal ligation Family History Father Medical history unknown Mother Diabetes Hypertension Maternal Grandmother Pancreatic cancer Maternal Aunt Breast cancer Sister Breast cancer Social History Household Members: Family Housing: Apartment Are you a primary critical care clinical nurse specialist to a significant other at home: No Do you presently have visiting nurse or other home services: No Alcohol intake: never Patient Tobacco Use Status: Never used Tobacco Tobacco use type: Cigarette e-Cigarette/Vaping Use: Never Used Second Hand Smoke Exposure: Yes service: No Current occupational status: disabled Cognitive needs: No Hearing needs: No Vision needs: No Physical Exam Vital Signs: BMI result Body Mass Index 41.9 Const Orientation/consciousness: patient oriented x3 HEENT Ears: hearing grossly normal bilaterally Neck Thyroid: Thyroid normal Lymphatic: no lymphadenopathy noted Resp Auscultation: clear to auscultation bilaterally Cardio Rate: regular rate Rhythm: regular rhythm Heart sounds: S1 normal heart sound present and S2 normal heart sound present Skin General skin exam: no rashes or lesions noted Neuro Other: Monofilament and vibratory Sensation intact. DP pulses 2+ bilaterally. General: patient oriented x3, gait normal and no focal motor deficits Results Reviewed Results Reviewed: Laboratory Tests 10/29/23 01/15/24 05/01/24 08:10 10:37 08:31 Glucose (Clinic) 138 H Hgb A1c (Clinic) 7.4 H Triglycerides 156 H Cholesterol 170 LDL Cholesterol, Calc 90 HDL Cholesterol 49 TSH 1.12 05/01/24 08:43 Glucose (Clinic) Hgb A1c (Clinic) 8.8 H Triglycerides Cholesterol LDL Cholesterol, Calc HDL Cholesterol TSH Assessment & Plan Assessment & Plan (1) Diabetic nephropathy associated with type 2 diabetes mellitus: Code(s): E11.21 - Type 2 diabetes mellitus with diabetic nephropathy Category: Medical Plan: we discussed adding humalog but she does not want to do this We will continue current regimen as it has significantly improved and do a follow up in 3 months. Labs prior. (2) Type 2 diabetes mellitus with hyperglycemia: Code(s): E11.65 - Type 2 diabetes mellitus with hyperglycemia Category: Medical Qualifiers: Diabetes mellitus manager long term care insulin use: with [place] [facility] use Qualified Code(s): E11.65 - Type 2 diabetes mellitus with hyperglycemia; Z79.4 - [facility] (current) use of insulin Plan: As above. Improving. (3) Hypercholesterolemia: Code(s): E78.00 - Pure hypercholesterolemia, unspecified Category: Medical Plan: Continue atorvastatin. (4) Hypertension: Code(s): I10 - Essential (primary) hypertension Category: Medical Qualifiers: Hypertension type: primary hypertension Qualified Code(s): I10 - Essential (primary) hypertension Plan: WNL. Continue current regimen. Coding Level of Care Code Est Pt Level 4 (91228) Complex EM visit Add On G2211 Diagnoses Diabetic nephropathy associated with type 2 diabetes mellitus E11.21 Type 2 diabetes mellitus with hyperglycemia, with long-term current use of insulin E11.65; Z79.4 Diabetes mellitus manager long term care insulin use: with [place] use Hypercholesterolemia E78.00 Primary hypertension I10 Hypertension type: primary hypertension
[2024-05-29 09:12] LABS: Glucose, Whole Blood 190 mg/dL (60-115)
== END 2024-05-29 09:23 | disposition home or self-care (01) ==
LOC: HO.ENCR 08:47
PROVIDERS: PCP Internal Medicine; Visit Provider Physician Assistant
DX: E11.21 Type 2 diabetes mellitus with diabetic nephropathy (principal); E11.65 Type 2 diabetes mellitus with hyperglycemia; Z79.4 Long term (current) use of insulin; E78.00 Pure hypercholesterolemia, unspecified; I10 Essential (primary) hypertension

== ENCOUNTER → 2024-05-29 08:46 | Outpatient (BNVA) | payer OTHER, SELFPAY | PROVIDERS: PCP Internal Medicine; Visit Provider Physician Assistant | DX: E11.21 Type 2 diabetes mellitus with diabetic nephropathy (principal); E11.65 Type 2 diabetes mellitus with hyperglycemia; E78.00 Pure hypercholesterolemia, unspecified; I10 Essential (primary) hypertension; Z79.4 Long term (current) use of insulin | CPT/HCPCS: 82947; 99212 ==

== ENCOUNTER 2024-06-08 10:21 | Outpatient (AMB) | payer OTHER, SELFPAY ==
[2024-06-08 10:24] VITALS: BP 138/88; PULSE 84; TEMP 36.2; O2SAT 93; BMI 40.7
--- NOTE | 2024-06-08 10:24 | A.OFFPC_ITS ---
Vital Signs 06/08/24 10:24 Height 5 ft 2 in Weight 222 lb 8 oz BMI 40.7 BP 138/88 Blood Pressure Location Lt brachial Position Sitting Pulse 84 Pulse Source Pulse Oximeter Temp 97.1 F Temp Source Temporal Artery Scan Pulse Oximetry (%) 93 Oxygen Delivery Method Room Air Intake Visit Reasons: DM Allergies egg Allergy (Severe, Verified 06/08/24 10:25) throat swells up milk Allergy (Severe, Verified 06/08/24 10:25) throat swells up avocado Allergy (Intermediate, Verified 06/08/24 10:25) lip swelling lisinopril Allergy (Unknown, Verified 06/08/24 10:25) Unknown dulaglutide [[facility]] Adverse Reaction (Intermediate, Verified 06/08/24 10:25) pancreatitis pioglitazone Adverse Reaction (Intermediate, Verified 06/08/24 10:25) Swelling Tobacco use date assessed: 06/08/24 Dental Screening Dental Screen Date: 06/08/24 Did you have a dental visit in the last 12 months?: No Did you have a dental problem in the last 6 months where you did not have access to dental care?: No Was dental information given to patient?: Patient declined [facility] Medical History (Updated 06/08/24 @ 11:11 by Cally Rizvi MD) Obesity Hypoxemia Witnessed apneic spells Eczema Hordeolum externum left eye, unspecified eyelid Obesity Headache History of acute respiratory distress syndrome (ARDS) Persistent insomnia Respiratory failure with hypoxia Pneumonia due to severe acute respiratory syndrome coronavirus 2 (SARS-CoV-2) COVID-19 virus infection Cavitary lesion of lung Obesity (BMI 30-39.9) Anxiety and depression Hypersomnia Acute neck sprain Post covid-19 condition, unspecified Restrictive lung disease Lower extremity edema Pneumonia COVID-19 virus infection Diabetic nephropathy associated with type 2 diabetes mellitus Diabetic neuropathy associated with type 2 diabetes mellitus Acute meniscal tear of right knee Right thyroid nodule Psoriasis Hypertension Type 2 diabetes mellitus with hyperglycemia Hypercholesterolemia Osteoarthritis Insomnia GERD (gastroesophageal reflux disease) Diabetic nephropathy Bilateral carpal tunnel syndrome Surgical History History of D&C History of cholecystectomy History of section History of tubal ligation Family History Father Medical history unknown Mother Diabetes Hypertension Maternal Grandmother Pancreatic cancer Maternal Aunt Breast cancer Sister Breast cancer Social History Household Members: Family Housing: Apartment Are you a primary rn wound care to a significant other at home: No Do you presently have visiting nurse or other home services: No Alcohol intake: never Patient Tobacco Use Status: Never used Tobacco Tobacco use type: Cigarette e-Cigarette/Vaping Use: Never Used Second Hand Smoke Exposure: Yes service: No Current occupational status: disabled Cognitive needs: No Hearing needs: No Vision needs: No Questionnaire PHQ-9 Over the last 2 weeks, how often have you been bothered by any of the following problems? 1. Little interest or pleasure in doing things: several days 2. Feeling down, depressed, or hopeless: several days 3. Trouble falling or staying asleep, or sleeping too much: several days 4. Feeling tired or having little energy: several days 5. Poor appetite or overeating: several days 6. Feeling bad about yourself - or that you are a failure or have let yourself or your family down: several days 7. Trouble concentrating on things, such as reading the newspaper or watching television: not at all 8. Moving or speaking so slowly that other people could have noticed. Or the opposite - being so fidgety or restless that you have been moving around a lot more than usual: not at all 9. Thoughts that you would be better off or of hurting yourself in some way: not at all Total score: 6 Depression Screening Interpretation: Negative Depression Screening Done: Yes Source: Developed by Drs. Delvin Head, Ashley Rahman, Vinod Manzanares and colleagues, with an educational jo-ann from [employer]. Thrive Questionnaire Date Thrive assessed: 06/08/24 I am a: Patient What is your living situation today?: I have a steady place to live Within the past 12 months, did the food you bought not last and you didn't have the money to get more?: Never true Within the past 12 months, did you worry whether your food would run out before you got money to buy more?: Never true Do you have trouble paying for medicines?: No Do you have trouble getting transportation to medical appointments?: No Do you have trouble paying your heating and electricity bill?: No Do you have trouble taking care of your child, family member or friend?: No Do you have trouble with day-to-day activities such as bathing, preparing meals, shopping, managing finances, etc.?: No Are you currently unemployed and looking for a job?: No Are you interested in more education?: No THRIVE Score: 0 AUDIT C Alcohol Use Questionnaire (AUDIT-C) 1. How often do you have a drink containing alcohol?: Never 3. How often do you have six or more drinks on one occasion?: Never Total Score: 0 NANCY-7 AMB Questionnaire NANCY-7 Date NANCY - 7 assessed: 06/08/24 Feeling nervous, anxious, or on edge: 0 = Not at all Not being able to stop or control worryin = Not at all Worrying too much about different things: 0 = Not at all Trouble relaxin = Not at all Being so restless that it is hard to sit still: 0 = Not at all Becoming easily annoyed or irritable: 0 = Not at all Feeling afraid as if something awful might happen: 0 = Not at all Total NANCY-7 score (0-4 normal; 5-9 mild; 10-14 moderate; 15-21 severe): 0 Source: Developed by Drs. Delvin Head, Ashley Rahman, Vinod Manzanares and colleagues, with an educational jo-ann from [employer]. Physical exam (Primary Care) Vital Signs: Last Vital Signs Temp 97.1 F 06/08/24 10:24 Pulse 84 06/08/24 10:24 BP 138/88 06/08/24 10:24 Pulse Ox 93 06/08/24 10:24 Oxygen Delivery Method Room Air 06/08/24 10:24 BMI result Body Mass Index 40.7 Tobacco/Smoking Status: Tobacco use Status Tobacco use date assessed 06/08/24 06/08/24 10:26 Patient Tobacco Use Status Never used Tobacco 06/08/24 10:26 Tobacco use type Cigarette 06/08/24 10:26 e-Cigarette/Vaping Use Never Used 06/08/24 10:26 PHQ-9: PHQ-9 Score PHQ-9: Total score 6 06/08/24 11:14 Depression Screening Interpretation: Negative Thrive Assessment: Date of Thrive Assessment Date Thrive assessed 06/08/24 06/08/24 10:26 Const General: alert; No acute distress Eyes Conjunctivae: conjunctivae normal Resp Auscultation: clear to auscultation bilaterally Cardio Rate: regular rate Rhythm: regular rhythm GI Inspection: Yes normal to inspection Extrem General: Yes normal to inspection and No edema Coding Level of Care Code Est Pt Level 4 (71424) Complex EM visit Add On G2211 Diagnoses Type 2 diabetes mellitus with hyperglycemia, with long-term current use of insulin E11.65; Z79.4 Diabetes mellitus salvage determiner insulin use: with jail use Primary hypertension I10 Hypertension type: primary hypertension Hypercholesterolemia E78.00 Morbid obesity E66.01 Generalized anxiety disorder F41.1 Gastroesophageal reflux disease without esophagitis K21.9 Esophagitis presence: without esophagitis Assessment & Plan Assessment & Plan (1) Type 2 diabetes mellitus with hyperglycemia: Code(s): E11.65 - Type 2 diabetes mellitus with hyperglycemia Category: Medical Qualifiers: Diabetes mellitus jail insulin use: with salvage determiner use Qualified Code(s): E11.65 - Type 2 diabetes mellitus with hyperglycemia; Z79.4 - oil heaterman (current) use of insulin Plan: Decrease the amount of carbohydrate intake, pasta, bread, rice and potatoes are all sugar and that is aside from all the sweet stuff, remember that fruits are good but they are Sweet also. patient sees endocrinology presently on Jardiance 25 mg once a day metformin 500 mg once a day Tresiba 25 units once a day (2) Hypertension: Code(s): I10 - Essential (primary) hypertension Category: Medical Qualifiers: Hypertension type: primary hypertension Qualified Code(s): I10 - Essential (primary) hypertension Plan: Continue with blood pressure medication. Decrease salt intake and exercise on losartan 100 mg once a day atenolol 100 mg once a day (3) Hypercholesterolemia: Code(s): E78.00 - Pure hypercholesterolemia, unspecified Category: Medical Plan: Avoid fried foods, chicken skin, eggs, butter margarine, pastries and meat. Be it pork or beef they have a lot of cholesterol LDL goal of less than 100 and triglyceride of less than 150 atorvastatin 10 mg once a (4) Morbid obesity: Code(s): E66.01 - Morbid (severe) obesity due to excess calories Category: Medical Plan: discussed with diet and exercise patient had pancreatitis from [facility] (5) Generalized anxiety disorder: Code(s): F41.1 - Generalized anxiety disorder Category: Medical Plan: continue with present medication of clonazepam as needed (6) GERD (gastroesophageal reflux disease): Code(s): K21.9 - Gastro-esophageal reflux disease without esophagitis Category: Medical Qualifiers: Esophagitis presence: without esophagitis Qualified Code(s): K21.9 - Gastro-esophageal reflux disease without esophagitis Plan: Avoid the foods that causes that usually spicy foods, tomato products, juices, coffee, soda and foods that your sensitive to. After eating do not lie down, allow 3-4 hours before in lie down. And keep the head of bed above 30 degrees to avoid the acid from going up. Plan History of Present Illness The patient is a 53-year-old female presenting with management of diabetes mellitus and follow-up on her chronic conditions. Recently, she noted a 6-pound weight loss. Her past medical history is significant for systemic lupus erythematosus, gastroesophageal reflux disease, psoriasis, peripheral vascular disease, generalized anxiety disorder, hypertension, hypercholesterolemia, obesity, and restrictive lung disease. Her diabetes management includes Jardiance, Metformin, and Tresiba. However, her recent hemoglobin A1c was 8.8 in April 2023. The patient reports neuropathic foot pain and pins and needles sensation, likely due to diabetic neuropathy. Her hypertension is managed with Losartan and Atenolol, and hypercholesterolemia is controlled using Atorvastatin, with LDL levels less than 90 mg/dL. [facility] Despite following dietary guidance, the patient's sugar levels remain elevated, requiring tighter glycemic control. She is working on improving her diet with the help of endocrinology. The patient is compliant with mammogram screenings and is scheduled to see a flooring machine feeder due to concerns about diabetic neuropathy. She is keen on managing her weight and plans further lifestyle adjustments. Health Maintenance - Routine mammogram up to date. - Colonoscopy declined by patient. - Diet and exercise discussed for weight management. - Continued monitoring of blood glucose levels with A1C goal. - LDL cholesterol goal less than 100 mg/dL. - Triglyceride goal less than 150 mg/dL. - Referral to podiatry for diabetic foot care. Social History - Dietary changes focused on blood glucose control. - Exercise and weight management discussed. - Anxiety management impacts dietary habits. Review of Systems - Neurological: Reports pins and needles sensation in feet. - Musculoskeletal: Reports generalized muscle aches. - Respiratory: Denies shortness of breath. - Gastrointestinal: Reports history of GERD. - Psychiatric: Reports generalized anxiety. Physical Exam - Cardiovascular- Pulses intact. - General- Weight loss of 6 pounds since last evaluation. - Neurological- Foot sensation compromised with neuropathic reports. Results - Labs: Hemoglobin A1c 8.8% (April 2023); LDL less than 90 mg/dL. - Last blood count in October 2023, normal. Plan 1. 8% with further dietary changes and endocrinology follow-ups. Blood pressure and lipid levels are managed with Losartan, Atenolol, and Atorvastatin. A podiatry referral is arranged to examine diabetic neuropathy. Emphasis is placed on diet and exercise for lifestyle improvement. Health maintenance focuses on regular monitoring to prevent diabetes-related complications. Medications are re-evaluated periodically to ensure proper disease management.: Patient was informed and verbally consented to the use of an ambient scribe for clinic note documentation during this visit. Discussion Notes We discussed the importance of monitoring diabetes closely due to the high A1c level of 8.8%, with ongoing adjustments in diet and lifestyle. The patient's blood pressure and cholesterol targets are being managed effectively with current medication regimens. I addressed the role of the director of critical care in her diabetes care and emphasized the need to maintain weight loss efforts. I encouraged regular follow-ups and ensured that the patient understood the significance of referring to podiatry for neuropathy assessment. We explored the intervention options for controlling hyperglycemia and how they mitigate the risk of complications. Potential disease consequences and the importance of adherence to treatment plans were addressed and acknowledged by the patient. Patient Instructions - Continue current medications as prescribed for diabetes, hypertension, and cholesterol management. - Maintain a balanced diet and regular physical activity to assist with weight management and blood glucose control. - Monitor blood glucose levels faithfully and report any persistently high values. - Attend the scheduled podiatry appointment for diabetic neuropathy evaluation. - Consult with endocrinology regularly, despite normal lab values. - Be aware of foot care practices to prevent complications. - Follow up in the clinic as scheduled and report any new symptoms or concerns. Orders: Orders Comprehensive Met. Panel 3 Months E11.65 - Type 2 diabetes mellitus with hyperglycemia, Z79.4 - intermediate (current) use of insulin Creatinine Urine 3 Months E11.65 - Type 2 diabetes mellitus with hyperglycemia, Z79.4 - intermediate (current) use of insulin Microalbumin, Random (w Creat) 3 Months E11.65 - Type 2 diabetes mellitus with hyperglycemia, Z79.4 - intermediate (current) use of insulin Complete Blood Count Auto Diff 3 Months E11.65 - Type 2 diabetes mellitus with hyperglycemia, Z79.4 - oil heaterman (current) use of insulin Free T4 (Free Thyroxine) 3 Months E11.65 - Type 2 diabetes mellitus with hyperglycemia, Z79.4 - oil heaterman (current) use of insulin Thyroid Stimulating Hormone 3 Months E11.65 - Type 2 diabetes mellitus with hyperglycemia, Z79.4 - intermediate (current) use of insulin Lipid Panel 3 Months E11.65 - Type 2 diabetes mellitus with hyperglycemia, E78.00 - Pure hypercholesterolemia, unspecified, Z79.4 - oil heaterman (current) use of insulin Vitamin B12 and Folate 3 Months E11.65 - Type 2 diabetes mellitus with hyperglycemia, Z79.4 - oil heaterman (current) use of insulin Vitamin D 25-OH Total 3 Months E11.65 - Type 2 diabetes mellitus with hyperglycemia, Z79.4 - intermediate (current) use of insulin Hemoglobin A1c 3 Months E11.65 - Type 2 diabetes mellitus with hyperglycemia, Z79.4 - intermediate (current) use of insulin Referrals Podiatry Referral E11.65 - Type 2 diabetes mellitus with hyperglycemia, Z79.4 - oil heaterman (current) use of insulin
== END 2024-06-08 11:24 | disposition home or self-care (01) ==
LOC: HO.HMCH 10:22
PROVIDERS: PCP Internal Medicine; Visit Provider Internal Medicine
DX: E11.65 Type 2 diabetes mellitus with hyperglycemia (principal); Z79.4 Long term (current) use of insulin; E66.01 Morbid (severe) obesity due to excess calories; Z68.41 Body mass index [BMI] 40.0-44.9, adult; I10 Essential (primary) hypertension; E78.00 Pure hypercholesterolemia, unspecified; F41.1 Generalized anxiety disorder; K21.9 Gastro-esophageal reflux disease without esophagitis

== ENCOUNTER → 2024-06-08 10:21 | Outpatient (BNVA) | payer OTHER, SELFPAY | PROVIDERS: PCP Internal Medicine; Visit Provider Internal Medicine | DX: E11.65 Type 2 diabetes mellitus with hyperglycemia (principal); I10 Essential (primary) hypertension; Z79.4 Long term (current) use of insulin; E78.00 Pure hypercholesterolemia, unspecified; E66.01 Morbid (severe) obesity due to excess calories; F41.1 Generalized anxiety disorder; K21.9 Gastro-esophageal reflux disease without esophagitis | CPT/HCPCS: 99212 ==

== ENCOUNTER 2024-06-24 15:25 | Outpatient (REF) | payer OTHER, SELFPAY ==
--- NOTE | ~2024-06-24 | XR_ITS ---
EXAMINATION: XR FOOT, RIGHT CLINICAL INFORMATION: S90.30XA - Contusion of unspecified foot, initial encounter COMPARISON: None available. TECHNIQUE: AP, lateral, and oblique views of the right foot. FINDINGS: No fracture, dislocation, or focal bone lesion. Alignment is anatomic. Normal plantar arch. Joint spaces are maintained. There are accessory ossicles abutting the medial navicular. There are moderate-sized plantar and dorsal calcaneal spurs. XR/XR foot RT min 3V IMPRESSION: 1. No acute bony abnormalities. 2. Moderate-sized plantar and dorsal calcaneal spurs. Electronically signed by: Glynn Weeks MD 06/24/2024 04:18 PM EDT
== END 2024-06-24 15:26 | disposition home or self-care (01) ==
LOC: HO.HMGCX 15:25
PROVIDERS: PCP Internal Medicine; Visit Provider Physician Assistant
DX: S90.31XA Contusion of right foot, initial encounter (principal)
CPT/HCPCS: 73630; 99212

== ENCOUNTER 2024-06-24 15:25 | Outpatient (AMB) | payer OTHER, SELFPAY ==
--- NOTE | 2024-06-24 15:33 | AM.OFFWIN_ITS ---
Intake Vital Signs 06/24/24 15:35 Weight 227 lb BP 120/90 H Blood Pressure Location Lt brachial Position Sitting Intake Visit Reasons: EP Pain in rt foot, swelling Intake Note: Patient here for right foot pain and swelling small toe area, states she was driving yesterday and her phone hit her foot and has been painful since then and is concerned since she is a diabetic. Patient Tobacco Use Status: Never used Tobacco Medical Records Specialist Required: No Allergies egg Allergy (Severe, Verified 06/24/24 15:36) throat swells up milk Allergy (Severe, Verified 06/24/24 15:36) throat swells up avocado Allergy (Intermediate, Verified 06/24/24 15:36) lip swelling lisinopril Allergy (Unknown, Verified 06/24/24 15:36) Unknown dulaglutide [From [facility]] Adverse Reaction (Intermediate, Verified 06/24/24 15:36) pancreatitis pioglitazone Adverse Reaction (Intermediate, Verified 06/24/24 15:36) Swelling Do you need a note to return to daycare/school/sports/work: No HPI HPI Comments History of Present Illness Details Patient is a 53yo F with hx of diabetes presenting with R foot toe pain Cellphone dropped on her foot yesterday and + pain since She has had continual pain in R foot since Pain level is 7/10 Worse when walking Better with rest and tried Bengay and wrapped foot No hx foot fx in past PFSH Medical History (Updated 06/24/24 @ 16:53 by Paige Arrington PA-C) Obesity Hypoxemia Witnessed apneic spells Eczema Hordeolum externum left eye, unspecified eyelid Obesity Headache History of acute respiratory distress syndrome (ARDS) Persistent insomnia Respiratory failure with hypoxia Pneumonia due to severe acute respiratory syndrome coronavirus 2 (SARS-CoV-2) COVID-19 virus infection Cavitary lesion of lung Obesity (BMI 30-39.9) Anxiety and depression Hypersomnia Acute neck sprain Post covid-19 condition, unspecified Restrictive lung disease Lower extremity edema Pneumonia COVID-19 virus infection Diabetic nephropathy associated with type 2 diabetes mellitus Diabetic neuropathy associated with type 2 diabetes mellitus Acute meniscal tear of right knee Right thyroid nodule Psoriasis Hypertension Type 2 diabetes mellitus with hyperglycemia Hypercholesterolemia Osteoarthritis Insomnia GERD (gastroesophageal reflux disease) Diabetic nephropathy Bilateral carpal tunnel syndrome Surgical History History of D&C History of cholecystectomy History of section History of tubal ligation Family History Father Medical history unknown Mother Diabetes Hypertension Maternal Grandmother Pancreatic cancer Maternal Aunt Breast cancer Sister Breast cancer Social History Household Members: Family Housing: Apartment Are you a primary healthcare project manager to a significant other at home: No Do you presently have visiting nurse or other home services: No Alcohol intake: never Patient Tobacco Use Status: Never used Tobacco Tobacco use type: Cigarette e-Cigarette/Vaping Use: Never Used Second Hand Smoke Exposure: Yes service: No Current occupational status: disabled Cognitive needs: No Hearing needs: No Vision needs: No Review of Systems Const Denies chills and Denies fever(s) Musc Reports arthralgias (R foot pain) and Reports numbness (chronic neuropathy from diabetes) Skin/Breast Denies rash, Reports skin swelling and Reports unusual bruising (slight bruise on R foot from injury) Neuro Reports numbness (chronic neuropathy from diabetes) Physical Exam Vital Signs: Last Vital Signs BP 120/90 H 06/24/24 15:35 General: Non-toxic, NAD. Speaking full sentences. Skin: Warm dry throughout. R foot lateral foot slight edema to proximal 4/5 metatarsal bone region. No erythema Eye: EOMI Respiratory: No respiratory distress Cardiac: DP pulse intact R foot MSK: No TTP R ankle, achilles, calcaneus, metatarsal bones 1-3, or digits L foot + TTP RLE proximal 4/5th metatarsal region. Neurology: Alert. No aphasia or facial droop. Gait without abnormality Psych: Good mood and affect Assessment & Plan Assessment & Plan (1) Foot contusion: Code(s): S90.30XA - Contusion of unspecified foot, initial encounter Qualifiers: Encounter type: initial encounter Laterality: right Qualified Code(s): S90.31XA - Contusion of right foot, initial encounter Plan: Xray R foot: I saw no fx Discussed elevate and ice Call with concerns Orders: Orders XR foot RT min 3V Today S90.30XA - Contusion of unspecified foot, initial encounter Coding Level of Care Code Est Pt Level 3 (96272) Diagnoses Contusion of right foot, initial encounter S90.31XA Encounter type: initial encounter Laterality: right
[2024-06-24 15:35] VITALS: BP 120/90
== END 2024-06-24 16:25 | disposition home or self-care (01) ==
PROVIDERS: PCP Internal Medicine; Visit Provider Physician Assistant
DX: S90.31XA Contusion of right foot, initial encounter (principal)

== ENCOUNTER → 2024-06-24 15:50 | Outpatient (BNV) | payer OTHER, SELFPAY | PROVIDERS: PCP Internal Medicine; Visit Provider Radiology Diagnostic Radiology | DX: S90.31XA Contusion of right foot, initial encounter (principal) | CPT/HCPCS: 73630 ==

== ENCOUNTER 2024-06-27 10:34 | Emergency (ER) | payer OTHER, SELFPAY ==
--- NOTE | ~2024-06-27 | XR_ITS ---
CLINICAL HISTORY: right foot pain 3 views right foot Comparison: CR/MA/SR - XR FOOT RT MIN 3V - 06/24/24 16:00 EDT Findings: No fractures, subluxations or dislocations. No periostitis or bony destruction. Joint intervals are preserved. No marginal erosions or overhanging osteophytes. Calcaneus and subtalar joint intact. Stable mild degenerative changes talonavicular joint. Posterior and plantar calcaneal enthesophytes. Stable soft tissue calcification along the plantar aspect of the body of the calcaneus. Normal pre-Achilles fat pad. No radiopaque foreign body. Impression: 1. Stable non erosive degenerative changes. 2. Posterior and plantar calcaneal enthesophytes. This document has been electronically signed by: Joshua Mercado MD on 06/27/2024 12:33:53
--- NOTE | ~2024-06-27 | XR_ITS ---
CLINICAL HISTORY: pain 3 views right ankle Comparison: None Findings: No fractures, subluxations or dislocations. Ankle mortise intact. Normal plafond. No osteochondral lesions. Calcaneus and subtalar joint intact. Mild joint space narrowing tibiotalar joint and talonavicular joint. Posterior and plantar calcaneal enthesophytes. Mild soft tissue swelling laterally. Indeterminate calcifications along the base of the body of the calcaneus Normal pre-Achilles fat pad. No radiopaque foreign body. Impression: 1. Soft tissue swelling. Degenerative changes as described. 2. Posterior and plantar calcaneal enthesophytes. This document has been electronically signed by: Joshua Mercado MD on 06/27/2024 12:24:56
[2024-06-27 10:41] VITALS: BP 156/89; PULSE 83; RESP 16; TEMP 36; O2SAT 98; BMI 39.2
--- NOTE | 2024-06-27 11:07 | ED_ITS ---
HPI - Extremity Injury (Lower) General Chief Complaint: Extremity Injury, Lower Stated Complaint: leg swelling Time Seen by Provider: 06/27/24 11:11 Source: patient and RN notes reviewed Mode of arrival: ambulatory Limitations: no limitations History of Present Illness ED Provider: Sehrine Bo PA-C HPI Narrative: This is a 53-year-old female, with a history of diabetes, who presents emergency department with complaints of right foot pain and swelling. Patient states that she accidentally dropped her phone on her right foot. She went to a walk-in center where she had an x-ray which did not show any broken bones. She continues to have pain, swelling, and now is having numbness and tingling in her right 4th and 5th toes. She has been icing and resting her foot and ankle which has provided her with some relief. Denies any other complaints or concerns at this time. MD complaint: ankle injury and foot injury Place: home Relieving factors: NSAID, cold therapy and immobilization Exacerbating factors: movement and palpation Context: direct blow Associated symptoms: swelling and tingling Other symptoms: none Related Data Home Medications ?Medication ?Instructions ?Recorded ?Confirmed divalproex 500 mg tablet,delayed 500 mg PO BID 03/31/20 03/12/24 release escitalopram oxalate 20 mg tablet 20 mg PO DAILY 03/31/20 03/12/24 clonazepam 1 mg tablet 1 mg PO BID PRN 03/20/21 03/12/24 calcipotriene 0.005 % topical topical BID PRN 06/21/22 03/12/24 ointment quetiapine 100 mg tablet 100 mg PO BEDTIME 06/21/22 03/12/24 lancets 28 gauge (FreeStyle 08/15/22 03/12/24 Lancets) Oxygen Home Use 01/02/23 03/12/24 apremilast 30 mg tablet (Otezla) 30 mg PO BID 01/11/23 03/12/24 Previous Rx's ?Medication ?Instructions ?Recorded albuterol sulfate 90 mcg/actuation 4 puff inhalation Q3H PRN 12/21/20 aerosol inhaler (Ventolin HFA) Shortness Of Breath/Wheezing #8.5 grams nebulizers (Aeroneb Go Nebulizer) #1 ea 02/13/21 blood-glucose meter (FreeStyle #1 ea 06/12/21 [place] Lite kit) compress.stocking,knee,reg,lrg #12 ea 10/25/21 blood pressure monitor (Blood #1 ea 04/25/22 Pressure Kit) olopatadine 0.1 % eye drops 1 drp ophthalmic (eye) BID #5 mL 09/19/22 disposable gloves #1,000 ea 10/30/22 incontinence wipes #10 ea 10/30/22 sanitary pads #600 ea 10/30/22 fexofenadine 180 mg tablet 180 mg PO DAILY 90 days #90 tabs 06/18/23 ipratropium bromide 0.02 % 2.5 ml inhalation Q6H PRN 10/13/23 solution for inhalation shortness of breath or wheezing 30 days #120 mL atorvastatin 10 mg tablet 10 mg PO QPM #90 tabs 11/14/23 metformin 500 mg tablet 500 mg PO DAILY #90 tabs 11/14/23 losartan 100 mg tablet 100 mg PO DAILY #90 tabs 11/15/23 azelastine 137 mcg (0.1 %) nasal 2 spray intranasal Q12H #30 mL 11/21/23 spray fluticasone propionate 50 2 spray intranasal DAILY #16 grams 11/21/23 mcg/actuation nasal spray,suspension (Flonase Allergy Relief) HUMIDIFIER #1 ea 12/26/23 blood-glucose,briquette operator,cont #1 ea 01/22/24 (FreeStyle Jraed 3 [place]) pen needle, diabetic 32 gauge x #50 ea 02/13/24 5/32 (BD Patti 2nd Gen Pen Needle) empagliflozin 25 mg tablet 25 mg PO DAILY #30 tabs 03/05/24 (Jardiance) cholecalciferol (vitamin D3) 50 50 mcg PO DAILY #90 tabs 03/21/24 mcg (2,000 unit) tablet (Vitamin D3) amlodipine 5 mg tablet 5 mg PO DAILY #90 tabs 04/29/24 blood sugar diagnostic (FreeStyle #100 strips 05/01/24 Lite Strips) blood-glucose sensor (FreeStyle #2 ea 05/01/24 Jared 3 Sensor device) lancets 28 gauge (FreeStyle #100 ea 05/01/24 Lancets) Tresiba FlexTouch U-100 100 25 unit (0.25 mL) subcut BEDTIME 02/24/25 unit/mL (3 mL) subcutaneous pen #15 mL (insulin degludec) sumatriptan succinate 50 mg tablet 50 mg PO .QD PRN migraine headache 06/01/24 (Imitrex) #10 tabs Breo Ellipta 200 mcg-25 mcg/dose 1 inh inhalation DAILY #60 ea 06/02/24 powder for inhalation (fluticasone furoate-vilanterol) atenolol 100 mg tablet 100 mg PO DAILY #90 tabs 06/03/24 Allergies Allergy/AdvReac Type Severity Reaction Status Date / Time egg Allergy Severe throat Verified 06/27/24 10:44 swells up milk Allergy Severe throat Verified 06/27/24 10:44 swells up avocado Allergy Intermediate lip Verified 06/27/24 10:44 swelling lisinopril Allergy Unknown Unknown Verified 06/27/24 10:44 dulaglutide [From Trulicity] AdvReac Intermediate pancreatiti Verified 06/27/24 10:44 s pioglitazone AdvReac Intermediate Swelling Verified 06/27/24 10:44 Review of Systems Review of Systems: Yes all other systems are reviewed and are negative Constitutional: Constitutional: Reports as per HPI, Denies body ache(s), Denies chills and Denies fever(s) Eyes: Eyes: Reports as per HPI, Denies change in vision and Denies eye discharge ENT: Reports system reviewed and no additional complaints, except as documented, Reports as per HPI, Reports Normal hearing present and Denies facial pain Cardiovascular: Cardiovascular: Reports as per HPI and Denies chest pain Respiratory: Respiratory: Reports as per HPI and Denies cough Gastrointestinal: Gastrointestinal: Reports as per HPI, Reports no additional gastrointestinal complaints, Denies abdominal pain, Denies diarrhea, Denies nausea and Denies vomiting Genitourinary: Genitourinary: Reports no additional female genitourinary complaints and Reports as per HPI Musculoskeletal: Musculoskeletal: Reports no additional musculoskeletal complaints and Reports as per HPI Integumentary/Breasts: Skin/Breast: Reports system reviewed and no additional complaints, except as docu, Reports as per HPI, Reports erythema, Denies rash and Denies wounds Neurologic: Reports Normal hearing present Psychiatric: Psychiatric: Reports no additional psychiatric complaints and Reports as per HPI Endocrine: Endocrine: Reports no additional endocrine complaints and Reports as per HPI Hematologic/Lymphatic: Hematologic/Lymphatic: Reports no additional hematologic/lymphatic complaints and Reports as per HPI Allergic/Immunologic: Allergic/Immunologic: Reports no additional allergic/immunologic complaints and Reports as per HPI [facility] Past Medical History Attestation statement: The following information was validated with the patient. Medical History (Updated 06/27/24 @ 12:44 by KEIKO Melo) Obesity Hypoxemia Witnessed apneic spells Eczema Hordeolum externum left eye, unspecified eyelid Obesity Headache History of acute respiratory distress syndrome (ARDS) Persistent insomnia Respiratory failure with hypoxia Pneumonia due to severe acute respiratory syndrome coronavirus 2 (SARS-CoV-2) COVID-19 virus infection Cavitary lesion of lung Obesity (BMI 30-39.9) Anxiety and depression Hypersomnia Acute neck sprain Post covid-19 condition, unspecified Restrictive lung disease Lower extremity edema Pneumonia COVID-19 virus infection Diabetic nephropathy associated with type 2 diabetes mellitus Diabetic neuropathy associated with type 2 diabetes mellitus Acute meniscal tear of right knee Right thyroid nodule Psoriasis Hypertension Type 2 diabetes mellitus with hyperglycemia Hypercholesterolemia Osteoarthritis Insomnia GERD (gastroesophageal reflux disease) Diabetic nephropathy Bilateral carpal tunnel syndrome Surgical History History of D&C History of cholecystectomy History of section History of tubal ligation Family History Family History Father Medical history unknown Mother Diabetes Hypertension Maternal Grandmother Pancreatic cancer Maternal Aunt Breast cancer Sister Breast cancer Social History Social History Household Members: Family Housing: Apartment Are you a primary plant health care technician to a significant other at home: No Do you presently have visiting nurse or other home services: No Alcohol intake: never Patient Tobacco Use Status: Never used Tobacco Tobacco use type: Cigarette e-Cigarette/Vaping Use: Never Used Second Hand Smoke Exposure: Yes Advance Directives: No Advance Directives Information Provided: Yes service: No Current occupational status: disabled Cognitive needs: No Hearing needs: No Vision needs: No Physical Exam Vital Signs: Vital Signs: Last Vital Signs Temp 96.8 F 06/27/24 10:41 Pulse 83 06/27/24 10:41 Resp 16 06/27/24 10:41 BP 156/89 H 06/27/24 10:41 Pulse Ox 98 06/27/24 10:41 O2 Del Method Room Air 06/27/24 10:41 BMI result Body Mass Index 39.2 Const: General: cooperative, comfortable and no acute distress Orientation/consciousness: patient oriented x3 Limitations: no limitations HEENT: Head: Yes normal to inspection, Yes normocephalic and Yes atraumatic Ears: hearing grossly normal bilaterally General nose exam: Normal external nose present Face and sinus: Yes normal facial exam Mouth: Normal oral and palatal mucosa present, oropharynx normal and moist mucous membranes Throat: Yes posterior oropharynx normal Eyes: General: appearance normal, both eyes and all related structures Eyelids: Yes eyelids normal Conjunctivae: conjunctivae normal Sclerae: sclerae normal Pupils: Equal, round and reactive pupils present EOM: EOMs intact bilaterally Neck: Neck: Yes normal visual inspection, Yes full ROM and Yes no lymphadenopathy Lymphatic: no lymphadenopathy noted Chest: Chest palpation & inspection: normal inspection of the chest Resp: Effort & Inspection: normal respiratory effort and able to speak in complete sentences Auscultation: clear to auscultation bilaterally Cardio: Rate: regular rate Rhythm: regular rhythm Heart sounds: S1 normal heart sound present and S2 normal heart sound present GI: Inspection: Yes normal to inspection Skin: General skin exam: no rashes or lesions noted Trauma: no lacerations or abrasions Wounds: no wounds Neuro: General: patient oriented x3 and moves all extremities Cranial nerves: Yes Equal, round and reactive pupils present and Yes Normal hearing present Extrem: Other: Right foot, dorsal aspect, there is moderate edema, and tenderness to palpation throughout. Achilles tendon is intact. No calf tenderness. No overlying skin changes erythema or warmth. Distal sensation circulation intact. Capillary refill less than 2 seconds. Full ROM of the ankle and metatarsals without difficulty. General: Yes normal to inspection Right upper extremity: normal to inspection Left upper extremity: normal to inspection Left lower ext remity: normal to inspection Course Reevaluation(s) Reevaluation #1: xrays revealing degenerative changes. Placed in post op shoe and given crutches. Given orthopedic referral for f/u. Encouraged tylenol, rest, ice. Given return precautions, stable for d/c. Medical Decision Making Medical Decision Making MDM Narrative: This is a 53-year-old female who presents emergency department for evaluation of right foot and ankle pain status post dropping her cell phone on her foot several days ago. On arrival, vital signs within normal limits. She is speaking full sentences under no acute distress. She was ambulatory with steady gait. She was moderate edema noted to her dorsal aspect of her right foot. X- ray several days ago did not reveal any acute fractures. No new injury. Will repeat x-rays and also get ankle x-rays to rule out any bony abnormalities. Differential diagnoses include contusion, fracture, sprain, strain. Differential Diagnosis Differential Diagnoses: The differential diagnosis associated with the presentation includes See above Radiology Impression Discussion of test interpretation with radiology: I have reviewed the radiologist's reading. Radiologist Impression: Findings: No fractures, subluxations or dislocations. No periostitis or bony destruction. Joint intervals are preserved. No marginal erosions or overhanging osteophytes. Calcaneus and subtalar joint intact. Stable mild degenerative changes talonavicular joint. Posterior and plantar calcaneal enthesophytes. Stable soft tissue calcification along the plantar aspect of the body of the calcaneus. Normal pre-Achilles fat pad. No radiopaque foreign body. Impression: 1. Stable non erosive degenerative changes. 2. Posterior and plantar calcaneal enthesophytes. This document has been electronically signed by: Joshua Mercado MD on 06/27/2024 12:33:53 Dictated By: Joshua Mercado MD CLINICAL HISTORY: pain 3 views right ankle Comparison: None Findings: No fractures, subluxations or dislocations. Ankle mortise intact. Normal plafond. No osteochondral lesions. Calcaneus and subtalar joint intact. Mild joint space narrowing tibiotalar joint and talonavicular joint. Posterior and plantar calcaneal enthesophytes. Mild soft tissue swelling laterally. Indeterminate calcifications along the base of the body of the calcaneus Normal pre-Achilles fat pad. No radiopaque foreign body. Impression: 1. Soft tissue swelling. Degenerative changes as described. 2. Posterior and plantar calcaneal enthesophytes. This document has been electronically signed by: Joshua Mercado MD on 06/27/2024 12:24:56 Discharge Plan Discharge Clinical Impression: Contusion of foot Patient Disposition: Home, Self-Care Instructions: Foot Contusion (ED) Additional Instructions: You were seen in the emergency department due to ongoing right foot pain. Your x-rays do not show any broken bones. You do have degenerative changes in y our foot. Please rest, ice, and elevate your foot. Use Vishal wrap as needed for compression. Also use postoperative shoe. Alternate between ibuprofen and or Tylenol as needed for pain and symptoms. If any new or worsening symptoms occur including but not limited to worsening pain, please seek emergent care. I am also giving you a referral to the documentation specialist, if you continue to have ongoing pain over the next 2 weeks, please call to make an appointment. Prescriptions: No Action (DME) blood-glucose meter [FreeStyle [place] Lite] Kit See Rx Instructions .Route Qty: 1 0RF Rx Instructions: As directed (DME) blood pressure monitor [Blood Pressure Kit] Kit See Rx Instructions .ROUTE .MEDSUPPLY Qty: 1 0RF Rx Instructions: As directed olopatadine 0.1 % drops 1 drp ophthalmic (eye) BID Qty: 5 12RF Rx Instructions: separate doses by at least 6-8 hours (DME) incontinence wipes See Rx Instructions .Route .MEDSUPPLY Qty: 10 12RF Rx Instructions: As directed (DME) sanitary pads See Rx Instructions .Route .MEDSUPPLY Qty: 600 12RF Rx Instructions: As directed (DME) disposable gloves Misc See Rx Instructions .Route Qty: 1000 12RF Rx Instructions: As directed fexofenadine 180 mg tablet 180 mg PO DAILY 90 Days Qty: 90 1RF ipratropium bromide 0.02 % solution 2.5 ml inhalation Q6H PRN (Reason: shortness of breath or wheezing) 30 Days Qty: 120 3RF atorvastatin 10 mg tablet 10 mg PO QPM Qty: 90 3RF metformin 500 mg tablet 500 mg PO DAILY Qty: 90 1RF losartan 100 mg tablet 100 mg PO DAILY Qty: 90 3RF fluticasone propionate [Flonase Allergy Relief] 50 mcg/actuation spray,suspension 2 spray intranasal DAILY Qty: 16 4RF Rx Instructions: administer into each nostril (DME) HUMIDIFIER See Rx Instructions .Route .MEDSUPPLY Qty: 1 0RF Rx Instructions: As directed (DME) FreeStyle Jared 3 [place] Misc See Rx Instructions .ROUTE .MEDSUPPLY Qty: 1 0RF Rx Instructions: Use daily As directed to monitor blood glucose (DME) pen needle, diabetic [BD Patti 2nd Gen Pen Needle] 32 gauge x 5/32 needle See Rx Instructions .ROUTE .COMPLEX Qty: 50 1RF Dose Instruction: USE PARMINDER LO INDICADO DIRECTED INJECT ONCE A DAY Rx Instructions: USE PARMINDER LO INDICADO DIRECTED INJECT ONCE A DAY Jardiance 25 mg tablet 25 mg PO DAILY Qty: 30 3RF cholecalciferol (vitamin D3) [Vitamin D3] 50 mcg (2,000 unit) tablet 50 mcg PO DAILY Qty: 90 3RF amlodipine 5 mg tablet 5 mg PO DAILY Qty: 90 1RF insulin degludec [Tresiba FlexTouch U-100] 100 unit/mL (3 mL) insulin pen 25 unit subcut BEDTIME Qty: 15 4RF sumatriptan succinate [Imitrex] 50 mg tablet 50 mg PO .QD PRN (Reason: migraine headache) Qty: 10 2RF Rx Instructions: do not exceed 4 doses per 24 hrs Breo Ellipta 200-25 mcg/dose blister with device 1 inh inhalation DAILY Qty: 60 0RF atenolol 100 mg tablet 100 mg PO DAILY Qty: 90 0RF albuterol sulfate [Ventolin HFA] 90 mcg/actuation Hfa Aerosol Inhaler 4 puff inhalation Q3H PRN (Reason: Shortness Of Breath/Wheezing) Qty: 8.5 0RF (DME) Aeroneb Go Nebulizer Misc See Rx Instructions .Route Qty: 1 0RF Rx Instructions: As directed (DME) compress.stocking,knee,reg,lrg Misc See Rx Instructions .Route Qty: 12 1RF Rx Instructions: As directed 20-30 mm HG Otezla 30 mg tablet 30 mg PO BID azelastine 137 mcg (0.1 %) spray,non-aerosol 2 spray intranasal Q12H Qty: 30 0RF Rx Instructions: administer into each nostril escitalopram oxalate 20 mg tablet 20 mg PO DAILY divalproex 500 mg tablet,delayed release (DR/EC) 500 mg PO BID quetiapine 100 mg tablet 100 mg PO BEDTIME calcipotriene 0.005 % ointment topical BID PRN (DME) lancets [FreeStyle Lancets] 28 gauge misc See Rx Instructions .Route Rx Instructions: As directed clonazepam 1 mg tablet 1 mg PO BID PRN (DME) FreeStyle Jared 3 Sensor Device See Rx Instructions .ROUTE .MEDSUPPLY Qty: 2 11RF Rx Instructions: Apply every 14 days As directed to monitor blood glucose (DME) FreeStyle Lite Strips Strip See Rx Instructions .ROUTE .COMPLEX Qty: 100 8RF Dose Instruction: DIRECTED TESTS 4X/DAY Rx Instructions: DIRECTED TESTS 4X/DAY (DME) lancets [FreeStyle Lancets] 28 gauge misc See Rx Instructions .MEDSUPPLY Qty: 100 3RF Rx Instructions: use daily as directed to check blood glucose (DME) Oxygen Home Use Kit See Rx Instructions .Route Rx Instructions: As directed Referrals: [facility] – [place] Orthopedic Surgeons [Provider Group] Print Language: [place] Citizen
[2024-06-27 13:24] VITALS: BP 148/78; PULSE 76; RESP 18; TEMP 36.7; O2SAT 100
== END 2024-06-27 13:24 | disposition home or self-care (01) ==
PROVIDERS: Emergency Provider Emergency Medicine; PCP Internal Medicine
DX: S90.31XA Contusion of right foot, initial encounter (principal); W20.8XXA Other cause of strike by thrown, projected or falling object, initial encounter; Y93.9 Activity, unspecified; Y92.9 Unspecified place or not applicable; Y99.9 Unspecified external cause status; M79.671 Pain in right foot
CPT/HCPCS: 73610; 73630; 99283; 99284

== ENCOUNTER → 2024-06-27 11:11 | Outpatient (BNV) | payer OTHER, SELFPAY | PROVIDERS: Emergency Provider Emergency Medicine; PCP Internal Medicine; Visit Provider Radiology Diagnostic Radiology | DX: M77.30 Calcaneal spur, unspecified foot (principal) | CPT/HCPCS: 73610; 73630 ==

== ENCOUNTER 2024-07-02 15:33 | Outpatient (AMB) | payer OTHER, SELFPAY ==
--- NOTE | 2024-07-02 15:47 | MHC.PC.OV ---
Vital Signs 07/02/24 15:53 Height 5 ft 3 in Weight 222 lb 4 oz BMI 39.4 BP 146/94 H Blood Pressure Location Lt brachial Position Sitting Respiration 17 Temp 97.3 F Temp Source Temporal Artery Scan Intake Visit Reasons: [facility] [place] RT Foot pain Directory Compiler Required: Yes Directory Compiler Language: Hungarian Accompanied by: Self / Same As Patient Allergies egg Allergy (Severe, Verified 07/02/24 16:00) throat swells up milk Allergy (Severe, Verified 07/02/24 16:00) throat swells up avocado Allergy (Intermediate, Verified 07/02/24 16:00) lip swelling lisinopril Allergy (Unknown, Verified 07/02/24 16:00) Unknown dulaglutide [From [facility]] Adverse Reaction (Intermediate, Verified 07/02/24 16:00) pancreatitis pioglitazone Adverse Reaction (Intermediate, Verified 07/02/24 16:00) Swelling Medication List - Last Reconciled 07/02/24 by Cally Rizvi MD albuterol sulfate 90 mcg/actuation (Ventolin HFA) 4 puffs inhalation Q3H PRN alcohol swabs (Alcohol Wipes) 1 pad topical .QD amlodipine 5 mg PO DAILY apremilast (Otezla) 30 mg PO BID atenolol 100 mg PO DAILY atorvastatin 10 mg PO QPM azelastine 2 sprays intranasal Q12H blood pressure monitor (Blood Pressure Kit) As directed blood sugar diagnostic (FreeStyle Lite Strips) DIRECTED TESTS 4X/DAY blood-glucose meter (FreeStyle [place] Lite kit) As directed blood-glucose sensor (FreeStyle Jared 3 Sensor device) Apply every 14 days As directed to monitor blood glucose blood-glucose,geographic information system analyst,cont (FreeStyle Jared 3 [place]) Use daily As directed to monitor blood glucose Breo Ellipta 200-25 mcg/dose (fluticasone furoate-vilanterol) 1 inh inhalation DAILY NS calcipotriene 0.005% topical BID PRN cholecalciferol (vitamin D3) (Vitamin D3) 50 mcg PO DAILY clonazepam 1 mg PO BID PRN compress.stocking,knee,reg,lrg As directed 20-30 mm HG diclofenac sodium 1% (Voltaren Arthritis Pain) 4 grams topical QID disposable gloves As directed divalproex 500 mg PO BID empagliflozin (Jardiance) 25 mg PO DAILY escitalopram oxalate 20 mg PO DAILY fexofenadine 180 mg PO DAILY 90 days fluticasone propionate 50 mcg/actuation (Flonase Allergy Relief) 2 sprays intranasal DAILY [HUMIDIFIER As directed] [incontinence wipes As directed] ipratropium bromide 2.5 mL inhalation Q6H PRN 30 days lancets (FreeStyle Lancets) As directed lancets (FreeStyle Lancets) use daily as directed to check blood glucose losartan 100 mg PO DAILY metformin 500 mg PO DAILY nebulizers (Aeroneb Go Nebulizer) As directed olopatadine 0.1% 1 drp ophthalmic (eye) BID Oxygen Home Use As directed pen needle, diabetic (BD Patti 2nd Gen Pen Needle) USE PARMINDER LO INDICADO DIRECTED INJECT ONCE A DAY quetiapine 100 mg PO BEDTIME [sanitary pads As directed] sumatriptan succinate (Imitrex) 50 mg PO .QD PRN Tresiba FlexTouch U-100 (insulin degludec) 25 units (0.25 mL) subcut BEDTIME NS Tobacco use date assessed: 06/08/24 Dental Screening Dental Screen Date: 06/08/24 [facility] Medical History (Updated 06/28/24 @ 00:01 by Dwayne Mendoza) Obesity Hypoxemia Witnessed apneic spells Eczema Hordeolum externum left eye, unspecified eyelid Obesity Headache History of acute respiratory distress syndrome (ARDS) Persistent insomnia Respiratory failure with hypoxia Pneumonia due to severe acute respiratory syndrome coronavirus 2 (SARS-CoV-2) COVID-19 virus infection Cavitary lesion of lung Obesity (BMI 30-39.9) Anxiety and depression Hypersomnia Acute neck sprain Post covid-19 condition, unspecified Restrictive lung disease Lower extremity edema Pneumonia COVID-19 virus infection Diabetic nephropathy associated with type 2 diabetes mellitus Diabetic neuropathy associated with type 2 diabetes mellitus Acute meniscal tear of right knee Right thyroid nodule Psoriasis Hypertension Type 2 diabetes mellitus with hyperglycemia Hypercholesterolemia Osteoarthritis Insomnia GERD (gastroesophageal reflux disease) Diabetic nephropathy Bilateral carpal tunnel syndrome Surgical History History of D&C History of cholecystectomy History of section History of tubal ligation Family History Father Medical history unknown Mother Diabetes Hypertension Maternal Grandmother Pancreatic cancer Maternal Aunt Breast cancer Sister Breast cancer Social History Household Members: Family Housing: Apartment Are you a primary neonatal intensive care unit nurse to a significant other at home: No Do you presently have visiting nurse or other home services: No Alcohol intake: never Patient Tobacco Use Status: Never used Tobacco Tobacco use type: Cigarette e-Cigarette/Vaping Use: Never Used Second Hand Smoke Exposure: Yes service: No Current occupational status: disabled Cognitive needs: No Hearing needs: No Vision needs: No Questionnaire Thrive Questionnaire Date Thrive assessed: 06/08/24 NANCY-7 AMB Questionnaire NANCY-7 Date NANCY - 7 assessed: 06/08/24 Source: Developed by Drs. Delvin Head, Ashley Rahman, Vinod Manzanares and colleagues, with an educational jo-ann from [employer]. Physical exam (Primary Care) Vital Signs: Last Vital Signs Temp 97.3 F 07/02/24 15:53 Resp 17 07/02/24 15:53 BP 146/94 H 07/02/24 15:53 BMI result Body Mass Index 39.4 Tobacco/Smoking Status: Tobacco use Status Tobacco use date assessed 06/08/24 07/02/24 15:47 Patient Tobacco Use Status Never used Tobacco 07/02/24 15:47 Tobacco use type Cigarette 07/02/24 15:47 e-Cigarette/Vaping Use Never Used 07/02/24 15:47 Thrive Assessment: Date of Thrive Assessment Date Thrive assessed 06/08/24 07/02/24 15:47 Const General: alert; No acute distress Eyes Conjunctivae: conjunctivae normal Resp Auscultation: clear to auscultation bilaterally Cardio Rate: regular rate Rhythm: regular rhythm GI Inspection: Yes normal to inspection Coding Level of Care Code Est Pt Level 3 (01605) Diagnoses Contusion of right foot, initial encounter S90.31XA Encounter type: initial encounter Laterality: right Assessment & Plan Assessment & Plan (1) Foot contusion: Code(s): S90.30XA - Contusion of unspecified foot, initial encounter Category: Medical Qualifiers: Encounter type: initial encounter Laterality: right Qualified Code(s): S90.31XA - Contusion of right foot, initial encounter Plan History of Present Illness The patient is a 53-year-old female presenting with right foot pain and swelling due to her phone being accidentally dropped on the foot on June 27. She has a history of diabetes mellitus, hypertension, hypercholesterolemia, GERD, psoriasis, arthritis, generalized anxiety disorder, and a [id number] condition. Her recent x-rays showed no fracture, but degenerative changes were noted. The patient was diagnosed with a foot contusion. Prior to this visit, her most recent blood work reported an LDL cholesterol level of 90 in October 2023 and her Hemoglobin A1c was 8.8% in April 2024. This foot discomfort arises in the context of an extensive chronic disease history, potentially complicating recovery. Her arthritis and tendinitis remain significant contributors to her discomfort. Management during this consultation involved recommendations for elevation, application of heat, topical treatment, and further follow-up. Health Maintenance - Hemoglobin A1c last checked in April 2024 was 8.8% - LDL cholesterol last measured in October 2023 was 90 - Emphasized adherence to diabetes management and lifestyle modifications for cardiovascular health Social History Review of Systems - Musculoskeletal: Reports right foot pain and swelling - General: Denies any recent fever Physical Exam Results - Imaging: X-rays of right foot conducted, no fracture noted; degenerative changes with calcaneal calluses observed Plan 1. 8%, continued focus on glucose control persists, accompanied by management strategies for her historical conditions including arthritis and tendinitis. Management of hypertension and hyperlipidemia remains unchanged, with emphasis on lifestyle modifications. A follow-up was scheduled in September to reevaluate and consider any further interventions if required, including possible referral to a photo equipment technician.: Patient was informed and verbally consented to the use of an ambient scribe for clinic note documentation during this visit. Discussion Notes I discussed with the patient the management plan for her right foot contusion, emphasizing elevation and heat application as primary methods to reduce swelling. The prescription of a topical gel was outlined to mitigate pain and to ensure safety and efficacy when used as directed. I reinforced the importance of monitoring for changes in her symptoms and considered her history of arthritis and tendinitis, which might impact recovery. Additionally, I recommended she continue current treatments for her diabetes, hyperlipidemia, and hypertension, highlighting any lifestyle modifications needed for improved control, particularly focusing on her Hemoglobin A1c and cholesterol levels. I ensured she understood all instructions and expressed a commitment to revisit concerns during her September follow-up. Patient Instructions - Elevate the affected foot to reduce swelling. - Apply heat to the affected area to aid pain relief. - Use the prescribed topical gel three times daily as directed. - Wear supportive shoes as advised. - Follow your diabetes, hypertension, and cholesterol management plan as discussed. - Monitor for any new symptoms or changes and contact if needed. - Schedule and attend the follow-up appointment in September as planned. Medications: New alcohol swabs (Alcohol Wipes) 1 pad topical .QD 100 ea 3RF E11.65 - Type 2 diabetes mellitus with hyperglycemia, Z79.4 - care home (current) use of insulin diclofenac sodium 1% (Voltaren Arthritis Pain) apply to single knee, ankle, foot; for foot includes sole/toes/top of foot 4 grams topical QID 100 grams 1RF S90.31XA - Contusion of right foot, initial encounter
[2024-07-02 15:53] VITALS: BP 146/94; RESP 17; TEMP 36.3; BMI 39.4
== END 2024-07-02 16:26 | disposition home or self-care (01) ==
LOC: HO.HMCH 15:34
PROVIDERS: PCP Internal Medicine; Visit Provider Internal Medicine
DX: S90.31XA Contusion of right foot, initial encounter (principal)

== ENCOUNTER → 2024-07-02 15:33 | Outpatient (BNVA) | payer OTHER, SELFPAY | PROVIDERS: PCP Internal Medicine; Visit Provider Internal Medicine | DX: S90.31XA Contusion of right foot, initial encounter (principal); E11.65 Type 2 diabetes mellitus with hyperglycemia; W20.8XXA Other cause of strike by thrown, projected or falling object, initial encounter; Y93.9 Activity, unspecified; Y92.9 Unspecified place or not applicable; Y99.9 Unspecified external cause status; Z79.4 Long term (current) use of insulin | CPT/HCPCS: 99212 ==

== ENCOUNTER 2024-07-09 09:38 | Outpatient (AMB) | payer OTHER, SELFPAY ==
[2024-07-09 09:40] VITALS: BP 150/98; PULSE 88; O2SAT 95; BMI 39.2
--- NOTE | 2024-07-09 09:40 | A.OFFVIS_ITS ---
Vital Signs 07/09/24 09:40 Height 5 ft 3 in Weight 221 lb 9.033 oz BMI 39.2 BP 150/98 H Blood Pressure Location Rt brachial Position Sitting Pulse 88 Pulse Source Pulse Oximeter Pulse Oximetry (%) 95 Oxygen Delivery Method Room Air Intake Visit Reasons: COPD Intake Note: pt has been only using O2 at night due to congestion and says when she coughs she has a little pain in her chest Door Closer Mechanic Required: Yes Door Closer Mechanic Name: Charla Agee Allergies egg Allergy (Severe, Verified 07/09/24 09:58) throat swells up milk Allergy (Severe, Verified 07/09/24 09:58) throat swells up avocado Allergy (Intermediate, Verified 07/09/24 09:58) lip swelling lisinopril Allergy (Unknown, Verified 07/09/24 09:58) Unknown dulaglutide [[facility]] Adverse Reaction (Intermediate, Verified 07/09/24 09:58) pancreatitis pioglitazone Adverse Reaction (Intermediate, Verified 07/09/24 09:58) Swelling Medication List - Last Reconciled 07/09/24 by Zoila Knutson MD albuterol sulfate 90 mcg/actuation (Ventolin HFA) 4 puffs inhalation Q3H PRN alcohol swabs (Alcohol Wipes) 1 pad topical .QD amlodipine 5 mg PO DAILY apremilast (Otezla) 30 mg PO BID atenolol 100 mg PO DAILY atorvastatin 10 mg PO QPM azelastine 2 sprays intranasal Q12H blood pressure monitor (Blood Pressure Kit) As directed blood sugar diagnostic (FreeStyle Lite Strips) DIRECTED TESTS 4X/DAY blood-glucose meter (FreeStyle [place] Lite kit) As directed blood-glucose sensor (FreeStyle Jared 3 Sensor device) Apply every 14 days As directed to monitor blood glucose blood-glucose,data integration developer,cont (FreeStyle Jared 3 [place]) Use daily As directed to monitor blood glucose Breo Ellipta 200-25 mcg/dose (fluticasone furoate-vilanterol) 1 inh inhalation DAILY NS calcipotriene 0.005% topical BID PRN cholecalciferol (vitamin D3) (Vitamin D3) 50 mcg PO DAILY clonazepam 1 mg PO BID PRN compress.stocking,knee,reg,lrg As directed 20-30 mm HG diclofenac sodium 1% (Voltaren Arthritis Pain) 4 grams topical QID disposable gloves As directed divalproex 500 mg PO BID empagliflozin (Jardiance) 25 mg PO DAILY escitalopram oxalate 20 mg PO DAILY fexofenadine 180 mg PO DAILY 90 days fluticasone propionate 50 mcg/actuation (Flonase Allergy Relief) 2 sprays intranasal DAILY [HUMIDIFIER As directed] [incontinence wipes As directed] ipratropium bromide 2.5 mL inhalation Q6H PRN 30 days lancets (FreeStyle Lancets) As directed lancets (FreeStyle Lancets) use daily as directed to check blood glucose losartan 100 mg PO DAILY metformin 500 mg PO DAILY nebulizers (Aeroneb Go Nebulizer) As directed olopatadine 0.1% 1 drp ophthalmic (eye) BID Oxygen Home Use As directed pen needle, diabetic (BD Patti 2nd Gen Pen Needle) USE PARMINDER LO INDICADO DIRECTED INJECT ONCE A DAY quetiapine 100 mg PO BEDTIME [sanitary pads As directed] sumatriptan succinate (Imitrex) 50 mg PO .QD PRN Tresiba FlexTouch U-100 (insulin degludec) 25 units (0.25 mL) subcut BEDTIME NS Do you need a note to return to daycare/school/sports/work: No HPI HPI COPD: Details: Mary is 53 years old female, who is here for 4 months follow-up. She suffers from obesity, Neg. for RENNY , Restrictive pulmonary disorder, with mild obstructive component, And has some residual fibrotic changes due to her previous COVID infection. She is being treated with Breo, albuterol p.r.n. , and O2 at night. Since her last visit she has reduce the O2 to 2 L/minute at night and during the daytime only as needed. Basically has remained stable, complains of mild anterior chest congestion , cough is mostly dry. This started only recently since the change in the weather. She has not been able to lose much weight. [facility] Medical History Obesity Hypoxemia Witnessed apneic spells Eczema Hordeolum externum left eye, unspecified eyelid Obesity Headache History of acute respiratory distress syndrome (ARDS) Persistent insomnia Respiratory failure with hypoxia Pneumonia due to severe acute respiratory syndrome coronavirus 2 (SARS-CoV-2) COVID-19 virus infection Cavitary lesion of lung Obesity (BMI 30-39.9) Anxiety and depression Hypersomnia Acute neck sprain Post covid-19 condition, unspecified Restrictive lung disease Lower extremity edema Pneumonia COVID-19 virus infection Diabetic nephropathy associated with type 2 diabetes mellitus Diabetic neuropathy associated with type 2 diabetes mellitus Acute meniscal tear of right knee Right thyroid nodule Psoriasis Hypertension Type 2 diabetes mellitus with hyperglycemia Hypercholesterolemia Osteoarthritis Insomnia GERD (gastroesophageal reflux disease) Diabetic nephropathy Bilateral carpal tunnel syndrome Surgical History History of D&C History of cholecystectomy History of section History of tubal ligation Family History Father Medical history unknown Mother Diabetes Hypertension Maternal Grandmother Pancreatic cancer Maternal Aunt Breast cancer Sister Breast cancer Social History Household Members: Family Housing: Apartment Are you a primary acute care occupational therapist to a significant other at home: No Do you presently have visiting nurse or other home services: No Alcohol intake: never Patient Tobacco Use Status: Never used Tobacco Tobacco use type: Cigarette e-Cigarette/Vaping Use: Never Used Second Hand Smoke Exposure: Yes service: No Current occupational status: disabled Cognitive needs: No Hearing needs: No Vision needs: No Review of Systems Const All systems reviewed & are unremarkable except as noted in HPI and below Eyes Reports no additional complaints ENT Reports no additional complaints Card Denies chest pain, Denies irregular heart rhythm and Denies leg edema Resp Reports as per HPI GI Reports no additional complaints Reports no additional complaints Musc Reports abnormal gait (WEAK AND SOMETIME HAS TO USE A CANE) and Reports back pain Skin/Breast Reports system reviewed and no additional complaints, except as documented Neuro Reports abnormal gait (WEAK AND SOMETIME HAS TO USE A CANE) Psych Reports no additional complaints Physical Exam Vital Signs: Last Vital Signs Pulse 88 07/09/24 09:40 BP 150/98 H 07/09/24 09:40 Pulse Ox 95 07/09/24 09:40 Oxygen Delivery Method Room Air 07/09/24 09:40 BMI result Body Mass Index 39.2 Const General: healthy appearing, comfortable, no acute distress, alert and awake Orientation/consciousness: patient oriented x3 HEENT Head: Yes normal to inspection General nose exam: No nasal polyps present and No nasal discharge present Face and sinus: Yes sinuses nontender Mouth: oropharynx normal Throat: Yes posterior oropharynx normal Eyes General: appearance normal, both eyes and all related structures Neck Neck: Yes normal visual inspection, Yes no lymphadenopathy, Yes trachea midline and Yes no JVD Thyroid: Thyroid normal Chest Chest palpation & inspection: normal inspection of the chest, normal palpation of entire chest wall and no tenderness Resp Other: PERCUSSION NOTE IS RESONANT, EXCEPT OVER THE BASILAR AREAS WHERE IT IS SOMEWHAT DIMINISHED DUE TO OBESITY .. BREATH SOUNDS ARE DECREASED OVER THE LOWER LOBES BUT CLEAR . NO DEFINITE CREPITATIONS OR WHEEZES ARE HEARD . Cardio Palpation: normal PMI Rate: regular rate Rhythm: regular rhythm Heart sounds: no gallops and no murmurs Peripheral pulses: Peripheral pulses 2+ throughout GI Palpation (GI): Soft to palpation, nontender, No hepatosplenomegaly present, no masses and Other GI palpation findings present (ABDOMEN IS MODERATELY OBESE) Auscultation: normal bowel sounds Back/Spine/Pelvis Thoracic/Lumbar Spine: thoracic and lumbar spine normal to inspection and thoraco-lumbar ROM limited Skin General skin exam: no rashes or lesions noted Neuro General: patient oriented x3, No gait normal (IMPAIRED DUE TO WEAKNESS OF THE LOWER EXTREMITIES, WHEELCHAIR TO WALKER.) and no focal motor deficits Cranial nerves: Yes CN's II-XII intact bilaterally Extrem General: Yes normal to inspection, Yes no clubbing, cyanosis or edema and Yes no calf tenderness Psych Appearance: grossly normal and well kempt Speech and movement: Normal speech and movement present Assessment & Plan Assessment & Plan (1) Morbid obesity: Comment: Patient has had morbid obesity, has lost few lb of weight, current BMI 39.2. Code(s): E66.01 - Morbid (severe) obesity due to excess calories Category: Medical Plan: She has made aware of this problem. Stressed that she needs to lose more weight. She is watching her diet, and will start walking every day. (2) Post covid-19 condition, unspecified: Comment: PATIENT CONTINUES TO HAVE, RESIDUAL INTERSTITIAL LUNG DISEASE, POST COVID. WITH SIGNIFICANT RESPIRATORY INSUFFICIENCY, AND REQUIRING O2 SUPPLEMENTATION. LAST CT SCAN OF THE CHEST in JUNE 2022 SHOWED CONTINUED RESOLUTION OF THE INTERSTITIAL DISEASE IN THE LOWER LOBES . NOW SHE HAS ONLY MINIMAL FIBROTIC STRANDS OVER THE BASES . NOW HER RESTRICTIVE LUNG DISEASE IS MAINLY DUE TO HER OBESITY. Code(s): U09.9 - Post COVID-19 condition, unspecified Category: Medical Plan: ENCOURAGED TO WALK DAILY, WATCH THE DIET AND TRY TO LOSE SOME WEIGHT. NO TREATMENT FOR RESIDUAL PULMONARY FIBROSIS . (3) Restrictive lung disease: Comment: CONFIRMED BY COMPLETE PFT . SHE DOES HAVE SEVERE RESTRICTIVE PULMONARY DISORDER, CLINICALLY IS IMPROVING SLOWLY. SHE MAY ALSO HAVE MILD OBSTRUCTIVE COMPONENT. Code(s): J98.4 - Other disorders of lung Category: Medical Plan: ADVISED TO KEEP ON DOING DEEP BREATHING EXERCISES AT LEAST 3 TIMES A DAY. BREO 100-251 INHALATION DAILY AND USE ALBUTEROL HFA 2 PUFFS Q 4-6 HOURS P.R.N. (4) Hypoxemia: Comment: SHE HAS HAD NOCTURNAL AND EXERCISE INDUCED HYPOXEMIA A RESULT OF ARDS, AND RESIDUAL FIBROTIC CHANGES IN THE LUNGS. CURRENTLY USES O2 2 L/MINUTE AT NIGHT, AND P.R.N. DURING THE DAYTIME. Code(s): R09.02 - Hypoxemia Category: Medical Plan: CONTINUE TO DO THE ABOVE. Coding Level of Care Code Est Pt Level 3 (92787) Diagnoses Morbid obesity E66.01 Post covid-19 condition, unspecified U09.9 Restrictive lung disease J98.4 Hypoxemia R09.02
== END 2024-07-09 09:58 | disposition home or self-care (01) ==
LOC: HO.HPS 09:39
PROVIDERS: PCP Internal Medicine; Visit Provider Internal Medicine
DX: E66.01 Morbid (severe) obesity due to excess calories (principal); U09.9 Post COVID-19 condition, unspecified; J98.4 Other disorders of lung; R09.02 Hypoxemia
CPT/HCPCS: 99213

== ENCOUNTER → 2024-07-09 09:38 | Outpatient (BNVA) | payer OTHER, SELFPAY | PROVIDERS: PCP Internal Medicine; Visit Provider Internal Medicine | DX: J98.4 Other disorders of lung (principal); U09.9 Post COVID-19 condition, unspecified; R09.02 Hypoxemia; E66.01 Morbid (severe) obesity due to excess calories; Z68.39 Body mass index [BMI] 39.0-39.9, adult | CPT/HCPCS: 99212 ==

== ENCOUNTER 2024-07-24 13:20 | Outpatient (AMB) | payer OTHER, SELFPAY ==
--- NOTE | 2024-07-24 13:57 | AM.OFFWIN_ITS ---
Intake Vital Signs 07/24/24 14:02 Weight 222 lb 2 oz BP 128/84 Blood Pressure Location Rt brachial Position Sitting Pulse 82 Pulse Source Pulse Oximeter Pulse Oximetry (%) 97 Oxygen Delivery Method Room Air Intake Visit Reasons: EP Chest pain, cough, pneumonia/finished abx Intake Note: Patient here for chest congestion, SOB, cough. she recently had pneumonia and finished antibiotics and is still not feeling better. 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 Name: Vince Information Interpreted: clinical only Allergies egg Allergy (Severe, Verified 07/24/24 14:01) throat swells up milk Allergy (Severe, Verified 07/24/24 14:01) throat swells up avocado Allergy (Intermediate, Verified 07/24/24 14:01) lip swelling lisinopril Allergy (Unknown, Verified 07/24/24 14:) Unknown dulaglutide [From [facility]] Adverse Reaction (Intermediate, Verified 07/24/24 14:) pancreatitis pioglitazone Adverse Reaction (Intermediate, Verified 07/24/24 14:01) Swelling Do you need a note to return to daycare/school/sports/work: No HPI HPI Comments History of Present Illness Details This is a 53-year-old female with a past medical history of hypertension, hyperlipidemia and insulin-dependent diabetes presenting for evaluation of a cough and chest congestion. Patient was diagnosed with pneumonia on July 14, 2024 at an urgent care in [place]. Patient was prescribed doxycycline twice daily times 10 days and her last dose of this medication was this morning. Patient states that she continues to cough and has intermittent chest pains. Patient denies having any fevers, chills, hemoptysis, shortness for breath, nausea, vomiting, abdominal pain or back pain. Patient has not taken any additional medication for treatment of her cough. [facility] Medical History Obesity Hypoxemia Witnessed apneic spells Eczema Hordeolum externum left eye, unspecified eyelid Obesity Headache History of acute respiratory distress syndrome (ARDS) Persistent insomnia Respiratory failure with hypoxia Pneumonia due to severe acute respiratory syndrome coronavirus 2 (SARS-CoV-2) COVID-19 virus infection Cavitary lesion of lung Obesity (BMI 30-39.9) Anxiety and depression Hypersomnia Acute neck sprain Post covid-19 condition, unspecified Restrictive lung disease Lower extremity edema Pneumonia COVID-19 virus infection Diabetic nephropathy associated with type 2 diabetes mellitus Diabetic neuropathy associated with type 2 diabetes mellitus Acute meniscal tear of right knee Right thyroid nodule Psoriasis Hypertension Type 2 diabetes mellitus with hyperglycemia Hypercholesterolemia Osteoarthritis Insomnia GERD (gastroesophageal reflux disease) Diabetic nephropathy Bilateral carpal tunnel syndrome Surgical History History of D&C History of cholecystectomy History of section History of tubal ligation Family History Father Medical history unknown Mother Diabetes Hypertension Maternal Grandmother Pancreatic cancer Maternal Aunt Breast cancer Sister Breast cancer Social History (Reviewed 07/09/24 @ 10: by Zoila Knutson MD) Household Members: Family Housing: Apartment Are you a primary animal care specialist to a significant other at home: No Do you presently have visiting nurse or other home services: No Alcohol intake: never Patient Tobacco Use Status: Never used Tobacco Tobacco use type: Cigarette e-Cigarette/Vaping Use: Never Used Second Hand Smoke Exposure: Yes service: No Current occupational status: disabled Cognitive needs: No Hearing needs: No Vision needs: No Review of Systems Const All systems reviewed & are unremarkable except as noted in HPI and below Reports no additional complaints, Denies body aches, Denies chills, Reports fatigue and Denies fever(s) Eyes Reports no additional complaints ENT Reports no additional complaints Card Reports no additional complaints, Reports chest pain, Denies chest pain with activity, Denies rapid heart rate, Denies lightheadedness and Denies dyspnea Resp Reports as per HPI, Reports no additional complaints, Reports chest congestion, Reports cough, Denies hemoptysis, Denies dyspnea, Denies stridor and Denies wheezing GI Reports no additional complaints, Denies nausea and Denies vomiting Reports no additional complaints Musc Reports no additional complaints Skin/Breast Reports system reviewed and no additional complaints, except as documented Neuro Reports no additional complaints Psych Reports no additional complaints Endo Reports no additional complaints and Reports fatigue Allen/Lymph Reports no additional complaints Aller/Immun Reports no additional complaints and Denies wheezing Physical Exam Vital Signs: Last Vital Signs Pulse 82 07/24/24 14:02 BP 128/84 07/24/24 14:02 Pulse Ox 97 07/24/24 14:02 Oxygen Delivery Method Room Air 07/24/24 14:02 Patient is not hypoxic. Const General: cooperative, healthy appearing, comfortable, no acute distress, well developed, alert, awake and Physically active Nutritional Appearance: well nourished Orientation/consciousness: patient oriented x3 Limitations: no limitations Chest Chest palpation & inspection: tenderness sternum and costochondral junction right mid-clavicular line Resp Effort & Inspection: normal respiratory effort, able to speak in complete sentences, no audible wheezes, no cough, not labored and not tachypneic Auscultation: clear to auscultation bilaterally Cardio Rate: regular rate Rhythm: regular rhythm Skin General skin exam: no rashes or lesions noted Neuro General: patient oriented x3 Psych Appearance: grossly normal Mental Status: mental status grossly normal Insight: Good insight present (Psych) Judgement: Good judgement present (Psych) Assessment & Plan Assessment & Plan (1) Cough: Comment: Patient denies having any new fevers and is not hypoxic at this time. Given that this patient completed her antibiotic therapy this morning, repeat imaging is not warranted at this time. Code(s): R05.9 - Cough, unspecified Qualifiers: Cough type: subacute Qualified Code(s): R05.2 - Subacute cough Plan: And Mucinex OTC with increased clear fluids daily; follow.up for any worsening shortness of breath. (2) Costochondritis: Comment: Patient's chest pain is reproducible on examination and related to her coughing only. Patient is instructed to use ibuprofen only as needed Code(s): M94.0 - Chondrocostal junction syndrome [Tietze] Plan: Ibuprofen 400-600 mg q.6 hours p.r.n. pain. Coding Level of Care Code Est Pt Level 3 (36809) Diagnoses Subacute cough R05.2 Cough type: subacute Costochondritis M94.0 Time Spent (min) 20
[2024-07-24 14:02] VITALS: BP 128/84; PULSE 82; O2SAT 97
== END 2024-07-24 15:15 | disposition home or self-care (01) ==
PROVIDERS: PCP Internal Medicine; Visit Provider Physician Assistant
DX: R05.2 Subacute cough (principal); M94.0 Chondrocostal junction syndrome [Tietze]

== ENCOUNTER → 2024-07-24 13:20 | Outpatient (BNVA) | payer OTHER, SELFPAY | PROVIDERS: PCP Internal Medicine; Visit Provider Physician Assistant | DX: R05.2 Subacute cough (principal); M94.0 Chondrocostal junction syndrome [Tietze] | CPT/HCPCS: 99212 ==

== ENCOUNTER 2024-08-31 08:54 | Outpatient (REF) | payer OTHER, SELFPAY ==
[2024-08-31 10:16] LABS: MANUAL DIFF FLAG NO
[2024-08-31 10:27] LABS: Basophils Absolute Auto 0.1 X10*3/uL (0.0-0.2); Basophils Percent Auto 0.9 % (0-2); Eosinophils Absolute Auto 0.2 X10*3/uL (0.0-0.4); Eosinophils Percent Auto 2.3 % (0-4); Hemoglobin 13.5 g/dl (12.0-16.0); Imm Gran Abs Auto 0.03 X10*3/uL (0.00-0.03); Imm Gran Pct Auto 0.3 % (0.0-0.4); Lymphocytes Absolute Auto 1.6 X10*3/uL (1.2-4.9); Lymphocytes Percent Auto 17.9 % (20-40); Mean Corpuscular HGB Conc 31.4 g/dl (31.0-35.0); Mean Corpuscular Hemoglobin 27.1 pg (27.0-33.0); Mean Corpuscular Volume 86.2 fL (80.0-98.0); Mean Platelet Volume 11.1 fL (9.4-12.3); Monocytes Absolute Auto 0.7 X10*3/uL (0.1-1.2); Monocytes Percent Auto 7.4 % (2-11); Neutrophils Absolute Auto 6.5 x10*3/uL (2.0-8.3); Neutrophils Percent Auto 71.2 % (45-73); Platelet Count 261 X10*3/uL (160-400); Red Blood Count 4.99 X10*6/uL (4.20-5.50); Red Cell Distribution Width 15.7 % (11.0-16.0); White Blood Count 9.1 X10*3/uL (4.8-10.8)
[2024-08-31 10:42] LABS: Estimated Average Glucose 157 mg/dL; Hemoglobin A1c % 7.1 % (<6.0)
[2024-08-31 10:52] LABS: Alanine Aminotransferase 35 U/L (0-31); Albumin Level 4.1 g/dL (3.5-5.0); Alkaline Phosphatase 119 U/L (39-117); Anion Gap 13 (12-20); Aspartate Amino Transferase 23 U/L (5-31); Bilirubin Total 0.6 mg/dL (0.0-1.0); Blood Urea Nitrogen 16 mg/dL (9-16); Calcium 9.4 mg/dL (8.4-10.2); Carbon Dioxide 26 mmol/L (22-29); Chloride 106 mmol/L (96-108); Cholesterol 171 mg/dL (<200); Estimated Glomerular Filt Rate 43; Glucose Fasting 117 mg/dL (60-99); Glucose Random 117 mg/dL (60-115); HDL Cholesterol 44 mg/dL (>40); LDL Cholesterol Calculated 95 mg/dL (<100); Potassium 3.6 mmol/L (3.3-5.1); Sodium 141 mmol/L (135-145); Total Protein 7.3 g/dL (6.5-8.0); Triglycerides 164 mg/dL (<150)
[2024-08-31 11:04] LABS: Free T4 (Free Thyroxine) 1.02 ng/dL (0.71-1.85); Vitamin D 25-OH Total 58.7 ng/mL (>30)
[2024-08-31 11:08] LABS: Thyroid Stimulating Hormone 0.66 uIU/mL (0.32-4.0)
[2024-08-31 11:23] LABS: Folate 8.6 ng/mL (> or = 4.0); Vitamin B12 371 pg/mL (200-900)
[2024-08-31 13:34] LABS: Creatinine Urine 148.67 mg/dL; Microalbum/Creatinine Ratio Ur 75.3 ug/mg cr (<30)
== END 2024-08-31 08:55 | disposition home or self-care (01) ==
LOC: HO.10HDL 08:54
PROVIDERS: Internal Medicine; Visit Provider Physician Assistant
DX: E11.21 Type 2 diabetes mellitus with diabetic nephropathy (principal); E11.65 Type 2 diabetes mellitus with hyperglycemia; Z79.4 Long term (current) use of insulin; E78.00 Pure hypercholesterolemia, unspecified
CPT/HCPCS: 36415; 80053; 80061; 82043; 82306; 82570; 82607; 82746; 83036; 84439; 84443; 85025

== ENCOUNTER 2024-09-04 08:49 | Outpatient (AMB) | payer OTHER, SELFPAY ==
[2024-09-04 09:13] VITALS: BP 136/90; BMI 39.7
--- NOTE | 2024-09-04 09:13 | A.OFFVIS_ITS ---
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 Services: Duck Operator Present Information Interpreted: non-clinical & clinical Accompanied by: Self / Same As Patient Allergies egg Allergy (Severe, Verified 09/04/24 09:18) throat swells up milk Allergy (Severe, Verified 09/04/24 09:18) throat swells up avocado Allergy (Intermediate, Verified 09/04/24 09:18) lip swelling lisinopril Allergy (Unknown, Verified 09/04/24 09:18) Unknown dulaglutide (From [facility]) Adverse Reaction (Intermediate, Verified 09/04/24 09:18) pancreatitis pioglitazone Adverse Reaction (Intermediate, Verified 09/04/24 09:18) Swelling Medication List - Last Reconciled 09/04/24 by Judi Cazares PA-C albuterol sulfate 90 mcg/actuation (Ventolin HFA) 4 puffs inhalation Q3H PRN alcohol swabs (Alcohol Wipes) 1 pad topical .QD amlodipine 5 mg PO DAILY apremilast (Otezla) 30 mg PO BID atenolol 100 mg PO DAILY atorvastatin 10 mg PO QPM azelastine 2 sprays intranasal Q12H blood pressure monitor (Blood Pressure Kit) As directed blood sugar diagnostic (FreeStyle Lite Strips) DIRECTED TESTS 4X/DAY blood-glucose meter (FreeStyle Cucumber Lite kit) As directed blood-glucose sensor (FreeStyle Jared 3 Sensor device) Apply every 14 days As directed to monitor blood glucose blood-glucose,certified nurse,cont (FreeStyle Jared 3 Melvin) Use daily As directed to monitor blood glucose Breo Ellipta 200-25 mcg/dose (fluticasone furoate-vilanterol) 1 inh inhalation DAILY NS calcipotriene 0.005% topical BID PRN cholecalciferol (vitamin D3) (Vitamin D3) 50 mcg PO DAILY clonazepam 1 mg PO BID PRN compress.stocking,knee,reg,lrg As directed 20-30 mm HG diclofenac sodium 1% (Voltaren Arthritis Pain) 4 grams topical QID disposable gloves As directed divalproex 500 mg PO BID empagliflozin (Jardiance) 25 mg PO DAILY escitalopram oxalate 20 mg PO DAILY fluticasone propionate 50 mcg/actuation (Flonase Allergy Relief) 2 sprays intranasal DAILY [HUMIDIFIER As directed] [incontinence wipes As directed] ipratropium bromide 2.5 mL inhalation Q6H PRN 30 days lancets (FreeStyle Lancets) As directed lancets (FreeStyle Lancets) use daily as directed to check blood glucose levocetirizine (Xyzal) 5 mg PO DAILY losartan 100 mg PO DAILY metformin 500 mg PO DAILY nebulizers (Aer3seventy Go Nebulizer) As directed olopatadine 0.1% 1 drp ophthalmic (eye) BID Oxygen Home Use As directed pen needle, diabetic USE PARMINDER LO INDICADO DIRECTED INJECT ONCE A DAY quetiapine 100 mg PO BEDTIME [sanitary pads As directed] sumatriptan succinate (Imitrex) 50 mg PO .QD PRN Tresiba FlexTouch U-100 (insulin degludec) 25 units (0.25 mL) subcut BEDTIME NS HPI HPI dm: Details: Patient is a 53-year-old female with a significant past medical history of hypertension, hyperlipidemia, type 2 diabetes, peripheral vascular disease, diabetic nephropathy, and goiter presenting today for follow-up regarding her godfrey meeks. Duck Operator: [id number] Ling Rivas: DM-Last A1c was 8.8. She is currently on Jardiance 25 mg, metformin 500 mg daily, Tresiba 25 units at bedtime. Previous Meds: does not tolerate higher doses of metformin. pancreatitis while on trulicity. lantus caused swelling and join paints. Actos caused swelling CGM- has not been using freestyle Jared 3 because they fall of easily for her. She had the same problem with the dexcom. Denies any symptoms of hypoglycemic events. States that she has felt low in the past and her symptoms include. She corrects hypoglycemia with glucose tabs or orange juice if needed. She does admit to not doing as much exercise or eating as healthy as she was previously doing. on statin and arb neurpoathy-intermittently gets tingling but no loss of sensation or weakness. No pain . nephropathy- last urine 2022 shows microalbuminuria, does not see nephrolology, on arb. CV: bp today in the office is 136/90. She is currently on losartan 100 mg james ly, atenolol 100 mg daily, amlodipine 5 mg. Her last LDL was 90. She is on atorvastatin 10 mg nightly [facility] Medical History Obesity Hypoxemia Witnessed apneic spells Eczema Hordeolum externum left eye, unspecified eyelid Obesity Headache History of acute respiratory distress syndrome (ARDS) Persistent insomnia Respiratory failure with hypoxia Pneumonia due to severe acute respiratory syndrome coronavirus 2 (SARS-CoV-2) COVID-19 virus infection Cavitary lesion of lung Obesity (BMI 30-39.9) Anxiety and depression Hypersomnia Acute neck sprain Post covid-19 condition, unspecified Restrictive lung disease Lower extremity edema Pneumonia COVID-19 virus infection Diabetic nephropathy associated with type 2 diabetes mellitus Diabetic neuropathy associated with type 2 diabetes mellitus Acute meniscal tear of right knee Right thyroid nodule Psoriasis Hypertension Type 2 diabetes mellitus with hyperglycemia Hypercholesterolemia Osteoarthritis Insomnia GERD (gastroesophageal reflux disease) Diabetic nephropathy Bilateral carpal tunnel syndrome Surgical History History of D&C History of cholecystectomy History of section History of tubal ligation Family History Father Medical history unknown Mother Diabetes Hypertension Maternal Grandmother Pancreatic cancer Maternal Aunt Breast cancer Sister Breast cancer Social History Household Members: Family Housing: Apartment Are you a primary disabilities caregiver to a significant other at home: No Do you presently have visiting nurse or other home services: No Alcohol intake: never Patient Tobacco Use Status: Never used Tobacco Tobacco use type: Cigarette e-Cigarette/Vaping Use: Never Used Second Hand Smoke Exposure: Yes service: No Current occupational status: disabled Cognitive needs: No Hearing needs: No Vision needs: No Physical Exam Vital Signs: Last Vital Signs BP 136/90 H 09/04/24 09:13 BMI result Body Mass Index 39.7 Const Orientation/consciousness: patient oriented x3 HEENT Ears: hearing grossly normal bilaterally Neck Thyroid: Thyroid normal Lymphatic: no lymphadenopathy noted Resp Auscultation: clear to auscultation bilaterally Cardio Rate: regular rate Rhythm: regular rhythm Heart sounds: S1 normal heart sound present and S2 normal heart sound present GI Inspection: Yes normal to inspection Palpation (GI): Soft to palpation and Other GI palpation findings present (nontender, no cva tenderness) Auscultation: normoactive bowel sounds Rectal Exam - Female: deferred Skin General skin exam: no rashes or lesions noted Neuro General: patient oriented x3, gait normal and no focal motor deficits Results Reviewed Results Reviewed: Laboratory Last Values Glucose (Clinic) 113 mg/dL (60-115) 09/04/24 09:20 Laboratory Tests 12/12/22 08/31/24 09/04/24 10:32 09:00 09:20 Sodium 141 Potassium 3.6 Chloride 106 Carbon Dioxide 26 Anion Gap 13 BUN 16 Creatinine 1.29 Estimated GFR 43 Glucose (Clinic) 113 Hemoglobin A1c % 7.1 H Triglycerides 164 H Cholesterol 171 LDL Cholesterol, Calc 95 HDL Cholesterol 44 Urine Creatinine 91.45 148.67 Urine Microalbumin 230.0 112.0 Microalb/Creat Ratio 251.5 H 75.3 H Assessment & Plan Assessment & Plan (1) Type 2 diabetes mellitus with hyperglycemia: Code(s): E11.65 - Type 2 diabetes mellitus with hyperglycemia Category: Medical Qualifiers: Diabetes mellitus intermediate insulin use: with terminologist use Qualified Code(s): E11.65 - Type 2 diabetes mellitus with hyperglycemia; Z79.4 - penitentiary (current) use of insulin Plan: I applied the sensor Jared 3+ today. Advised her to get the tape that goes over this. I have ordered sensors to the pharmacy. Increase Tresiba to 30 units Continue metformin 500 mg, continue Jardiance 25 mg (2) Hypertension: Code(s): I10 - Essential (primary) hypertension Category: Medical Qualifiers: Hypertension type: primary hypertension Qualified Code(s): I10 - Essential (primary) hypertension Plan: elevated above goal. states forgot medication (3) Hypercholesterolemia: Code(s): E78.00 - Pure hypercholesterolemia, unspecified Category: Medical Plan: continue atorvastatin reviewed labs with pt she is going to work diet changes (4) Elevated LFTs: Code(s): R79.89 - Other specified abnormal findings of blood chemistry Category: Medical Plan: reviewed labs u/s ordered advised to follow with pcp Orders: Orders US abdomen comp w elastography Today R79.89 - Other specified abnormal findings of blood chemistry Medications: New blood-glucose sensor (FreeStyle Jared 3 Plus Sensor device) Use daily As directed to monitor glucose 2 ea 5RF E08.29 - Diabetes mellitus due to underlying condition with other diabetic kidney complication, R80.9 - Proteinuria, unspecified, 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 Changed From Tresiba FlexTouch U-100 (insulin degludec) 25 units (0.25 mL) subcut BEDTIME 15 mL 4RF NS To Tresiba FlexTouch U-100 (insulin degludec) 30 units (0.3 mL) subcut BEDTIME 15 mL 4RF NS Discontinued blood-glucose sensor (FreeStyle Jared 3 Sensor device) Discontinued Reason: Doctor's Order Apply every 14 days As directed to monitor blood glucose 2 ea 11RF E11.9 - Type 2 diabetes mellitus without complications, 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
[2024-09-04 09:24] LABS: Glucose, Whole Blood 113 mg/dL (60-115)
== END 2024-09-04 09:52 | disposition home or self-care (01) ==
LOC: HO.ENCR 08:49
PROVIDERS: PCP Internal Medicine; Visit Provider Physician Assistant
DX: E11.65 Type 2 diabetes mellitus with hyperglycemia (principal); Z79.4 Long term (current) use of insulin; I10 Essential (primary) hypertension; E78.00 Pure hypercholesterolemia, unspecified; R79.89 Other specified abnormal findings of blood chemistry

== ENCOUNTER → 2024-09-04 08:49 | Outpatient (BNVA) | payer OTHER, SELFPAY | PROVIDERS: PCP Internal Medicine; Visit Provider Physician Assistant | DX: E11.65 Type 2 diabetes mellitus with hyperglycemia (principal); E11.51 Type 2 diabetes mellitus with diabetic peripheral angiopathy without gangrene; E11.21 Type 2 diabetes mellitus with diabetic nephropathy; E11.29 Type 2 diabetes mellitus with other diabetic kidney complication; I10 Essential (primary) hypertension; E78.00 Pure hypercholesterolemia, unspecified; R79.89 Other specified abnormal findings of blood chemistry | CPT/HCPCS: 82947; 99212 ==

== ENCOUNTER 2024-09-25 08:30 | Outpatient (AMB) | payer OTHER, SELFPAY ==
[2024-09-25 08:34] VITALS: BP 130/92; PULSE 82; TEMP 36.2; O2SAT 95; BMI 39.4
--- NOTE | 2024-09-25 08:34 | A.OFFPC_ITS ---
Vital Signs 09/25/24 08:34 Height 5 ft 3 in Weight 222 lb 8 oz BMI 39.4 BP 130/92 H Blood Pressure Location Lt brachial Position Sitting Pulse 82 Pulse Source Pulse Oximeter Temp 97.1 F Temp Source Temporal Artery Scan Pulse Oximetry (%) 95 Oxygen Delivery Method Room Air Intake Visit Reasons: dm Allergies egg Allergy (Severe, Verified 09/25/24 08:37) throat swells up milk Allergy (Severe, Verified 09/25/24 08:37) throat swells up avocado Allergy (Intermediate, Verified 09/25/24 08:37) lip swelling lisinopril Allergy (Unknown, Verified 09/25/24 08:37) Unknown dulaglutide (From [facility]) Adverse Reaction (Intermediate, Verified 09/25/24 08:37) pancreatitis pioglitazone Adverse Reaction (Intermediate, Verified 09/25/24 08:37) Swelling Medication List - Last Reconciled 09/25/24 by Cally Rizvi MD albuterol sulfate 90 mcg/actuation (Ventolin HFA) 4 puffs inhalation Q3H PRN alcohol swabs (Alcohol Wipes) 1 pad topical .QD amlodipine 5 mg PO DAILY apremilast (Otezla) 30 mg PO BID atenolol 100 mg PO DAILY atorvastatin 10 mg PO QPM azelastine 2 sprays intranasal Q12H blood pressure monitor (Blood Pressure Kit) As directed blood sugar diagnostic (FreeStyle Lite Strips) DIRECTED TESTS 4X/DAY blood-glucose meter (FreeStyle [place] Lite kit) As directed blood-glucose sensor (FreeStyle Jared 3 Plus Sensor device) Use daily As directed to monitor glucose blood-glucose,clay thrower,cont (FreeStyle Jared 3 [place]) Use daily As directed to monitor blood glucose Breo Ellipta 200-25 mcg/dose (fluticasone furoate-vilanterol) 1 inh inhalation DAILY NS calcipotriene 0.005% topical BID PRN cholecalciferol (vitamin D3) (Vitamin D3) 50 mcg PO DAILY clonazepam 1 mg PO BID PRN compress.stocking,knee,reg,lrg As directed 20-30 mm HG diclofenac sodium 1% (Voltaren Arthritis Pain) 4 grams topical QID disposable gloves As directed divalproex 500 mg PO BID empagliflozin (Jardiance) 25 mg PO DAILY escitalopram oxalate 20 mg PO DAILY fluticasone propionate 50 mcg/actuation (Flonase Allergy Relief) 2 sprays intranasal DAILY [HUMIDIFIER As directed] [incontinence wipes As directed] ipratropium bromide 2.5 mL inhalation Q6H PRN 30 days lancets (FreeStyle Lancets) As directed lancets (FreeStyle Lancets) use daily as directed to check blood glucose levocetirizine (Xyzal) 5 mg PO DAILY losartan 100 mg PO DAILY metformin 500 mg PO DAILY nebulizers (Aeroneb Go Nebulizer) As directed olopatadine 0.1% 1 drp ophthalmic (eye) BID Oxygen Home Use As directed pen needle, diabetic USE PARMINDER LO INDICADO DIRECTED INJECT ONCE A DAY quetiapine 100 mg PO BEDTIME [sanitary pads As directed] sumatriptan succinate (Imitrex) 50 mg PO .QD PRN Tresiba FlexTouch U-100 (insulin degludec) 30 units (0.3 mL) subcut BEDTIME NS Tobacco use date assessed: 09/25/24 Dental Screening Dental Screen Date: 06/08/24 Did you have a dental visit in the last 12 months?: No Did you have a dental problem in the last 6 months where you did not have access to dental care?: No Was dental information given to patient?: No HPI dm HPI Details [facility] desire [id number] [facility] Medical History Obesity Hypoxemia Witnessed apneic spells Eczema Hordeolum externum left eye, unspecified eyelid Obesity Headache History of acute respiratory distress syndrome (ARDS) Persistent insomnia Respiratory failure with hypoxia Pneumonia due to severe acute respiratory syndrome coronavirus 2 (SARS-CoV-2) COVID-19 virus infection Cavitary lesion of lung Obesity (BMI 30-39.9) Anxiety and depression Hypersomnia Acute neck sprain Post covid-19 condition, unspecified Restrictive lung disease Lower extremity edema Pneumonia COVID-19 virus infection Diabetic nephropathy associated with type 2 diabetes mellitus Diabetic neuropathy associated with type 2 diabetes mellitus Acute meniscal tear of right knee Right thyroid nodule Psoriasis Hypertension Type 2 diabetes mellitus with hyperglycemia Hypercholesterolemia Osteoarthritis Insomnia GERD (gastroesophageal reflux disease) Diabetic nephropathy Bilateral carpal tunnel syndrome Surgical History History of D&C History of cholecystectomy History of section History of tubal ligation Family History Father Medical history unknown Mother Diabetes Hypertension Maternal Grandmother Pancreatic cancer Maternal Aunt Breast cancer Sister Breast cancer Social History Household Members: Family Housing: Apartment Are you a primary career development facilitator to a significant other at home: No Do you presently have visiting nurse or other home services: No Alcohol intake: never Patient Tobacco Use Status: Never used Tobacco Tobacco use type: Cigarette e-Cigarette/Vaping Use: Never Used Second Hand Smoke Exposure: Yes service: No Current occupational status: disabled Cognitive needs: No Hearing needs: No Vision needs: No Questionnaire PHQ-9 Over the last 2 weeks, how often have you been bothered by any of the following problems? 1. Little interest or pleasure in doing things: not at all 2. Feeling down, depressed, or hopeless: more than half the days 3. Trouble falling or staying asleep, or sleeping too much: nearly every day 4. Feeling tired or having little energy: nearly every day 5. Poor appetite or overeating: more than half the days 6. Feeling bad about yourself - or that you are a failure or have let yourself or your family down: more than half the days 7. Trouble concentrating on things, such as reading the newspaper or watching television: more than half the days 8. Moving or speaking so slowly that other people could have noticed. Or the opposite - being so fidgety or restless that you have been moving around a lot more than usual: several days 9. Thoughts that you would be better off or of hurting yourself in some way: several days Total score: 16 Source: Developed by Drs. Delvin Head, Ashley Rahman, Vinod Manzanares and colleagues, with an educational jo-ann from [email or web address]. Thrive Questionnaire Date Thrive assessed: 06/08/24 I am a: Patient What is your living situation today?: I have a steady place to live Within the past 12 months, did the food you bought not last and you didn't have the money to get more?: Never true Within the past 12 months, did you worry whether your food would run out before you got money to buy more?: Never true Do you have trouble paying for medicines?: No Do you have trouble getting transportation to medical appointments?: No Do you have trouble paying your heating and electricity bill?: No Do you have trouble taking care of your child, family member or friend?: No Do you have trouble with day-to-day activities such as bathing, preparing meals, shopping, managing finances, etc.?: Yes Are you currently unemployed and looking for a job?: No Are you interested in more education?: No Please select the resources that you would like help with: None Currently or been in a relationship where the following occur: No concerns reported THRIVE Score: 0 AUDIT C Alcohol Use Questionnaire (AUDIT-C) 1. How often do you have a drink containing alcohol?: Never 3. How often do you have six or more drinks on one occasion?: Never Total Score: 0 NANCY-7 AMB Questionnaire NANCY-7 Date NANCY - 7 assessed: 06/08/24 Feeling nervous, anxious, or on edge: 0 = Not at all Not being able to stop or control worryin = Not at all Worrying too much about different things: 1 = Several days Trouble relaxin = Several days Being so restless that it is hard to sit still: 1 = Several days Becoming easily annoyed or irritable: 1 = Several days Feeling afraid as if something awful might happen: 1 = Several days Total NANCY-7 score (0-4 normal; 5-9 mild; 10-14 moderate; 15-21 severe): 5 Source: Developed by Drs. Delvin Head, Ashley Rahman, Vinod Manzanares and colleagues, with an educational jo-ann from [email or web address]. Physical exam (Primary Care) Vital Signs: Last Vital Signs Temp 97.1 F 09/25/24 08:34 Pulse 82 09/25/24 08:34 BP 130/92 H 09/25/24 08:34 Pulse Ox 95 09/25/24 08:34 Oxygen Delivery Method Room Air 09/25/24 08:34 BMI result Body Mass Index 39.4 Tobacco/Smoking Status: Tobacco use Status Tobacco use date assessed 09/25/24 09/25/24 08:38 Patient Tobacco Use Status Never used Tobacco 09/25/24 08:38 Tobacco use type Cigarette 09/25/24 08:38 e-Cigarette/Vaping Use Never Used 09/25/24 08:38 PHQ-9: PHQ-9 Score PHQ-9: Total score 16 09/25/24 08:59 Thrive Assessment: Date of Thrive Assessment Date Thrive assessed 06/08/24 09/25/24 08:38 Currently or been in a relationship where the following occur: No concerns reported Const General: alert; No acute distress Eyes Conjunctivae: conjunctivae normal Resp Auscultation: clear to auscultation bilaterally Cardio Rate: regular rate Rhythm: regular rhythm GI Inspection: Yes normal to inspection Extrem General: Yes normal to inspection and No edema Coding Level of Care Code Est Pt Level 4 (15294) Complex EM visit Add On G2211 Diagnoses Type 2 diabetes mellitus with hyperglycemia, with long-term current use of insulin E11.65; Z79.4 Diabetes mellitus senior living insulin use: with ocean transportation intermediary use Hypercholesterolemia E78.00 Primary hypertension I10 Hypertension type: primary hypertension COPD (chronic obstructive pulmonary disease) J44.9 Generalized anxiety disorder F41.1 Assessment & Plan Assessment & Plan (1) Type 2 diabetes mellitus with hyperglycemia: Code(s): E11.65 - Type 2 diabetes mellitus with hyperglycemia Category: Medical Qualifiers: Diabetes mellitus ocean transportation intermediary insulin use: with ocean transportation intermediary use Qualified Code(s): E11.65 - Type 2 diabetes mellitus with hyperglycemia; Z79.4 - detention (current) use of insulin Plan: Decrease the amount of carbohydrate intake, pasta, bread, rice and potatoes are all sugar and that is aside from all the sweet stuff, remember that fruits are good but they are Sweet also. Patient sees endocrinology [facility] patient is also on metformin 500 mg once a day and Jardiance (2) Hypercholesterolemia: Code(s): E78.00 - Pure hypercholesterolemia, unspecified Category: Medical Plan: Avoid fried foods, chicken skin, eggs, butter margarine, pastries and meat. Be it pork or beef they have a lot of cholesterol LDL goal of less than 100 and triglyceride of less than 150 atorvastatin 10 mg once a day August 2024 last blood work (3) Hypertension: Code(s): I10 - Essential (primary) hypertension Category: Medical Qualifiers: Hypertension type: primary hypertension Qualified Code(s): I10 - Essential (primary) hypertension Plan: Continue with blood pressure medication. Decrease salt intake and exercise on atenolol 100 mg once a day amlodipine 5 mg once a day and losartan 100 mg once a day (4) COPD (chronic obstructive pulmonary disease): Code(s): J44.9 - Chronic obstructive pulmonary disease, unspecified Category: Medical Plan: Patient follows up with Pulmonary continuing with albuterol and Breo (5) Generalized anxiety disorder: Code(s): F41.1 - Generalized anxiety disorder Category: Medical Plan: Continue on Lexapro. Patient on Depakote 500 mg twice a day clonazepam as needed Plan History of Present Illness The patient is a 53-year-old female presenting for a follow-up visit. She has a history of diabetes mellitus, gastroesophageal reflux disease, psoriasis, g eneralized anxiety disorder, hypertension, hypercholesterolemia, restrictive lung disease, and chronic obstructive pulmonary disease (COPD). The patient was last seen in June 2024 for a foot contusion and follows up with endocrinology for diabetes management. Her current medications include Androcepa, metformin, and Jardiance for diabetes management. Blood pressure was noted to be elevated, and the patient admitted to forgetting her medication. She was advised to get an ultrasound of the abdomen due to elevated liver numbers, which were mildly elevated at 35. The patient has a diagnosis of COPD secondary to a COVID infection with residual fibrotic changes and is on oxygen therapy. She uses Breo and albuterol for management, with the last CAT scan in June 2022 showing slow resolution of lung changes. The patient continues to use Breo, albuterol, and oxygen at night. Blood work from August 31 showed normal blood count with no anemia, stable renal function, and a hemoglobin A1c of 7.1. Liver numbers were good, LDL cholesterol was 95, and triglycerides were mildly elevated at 164. The patient has proteinuria, and her kidney function is affected by diabetes, necessitating control of sugar, blood pressure, cholesterol, and weight. The patient reports knee and right shoulder pain, likely due to arthritis, and uses Voltaren gel for relief. She was advised to consider glucosamine ch ondroitin for joint health and magnesium for leg cramps, with caution regarding potential diarrhea. Health Maintenance - Mammogram is up to date - Colonoscopy was declined - Advised to monitor liver function due to mildly elevated liver numbers - Recommended to control blood sugar, blood pressure, cholesterol, and weight to manage proteinuria - Discussed potential use of glucosamine chondroitin for joint health - Discussed magnesium supplementation for leg cramps Social History Review of Systems - Musculoskeletal: Reports knee and right shoulder pain, likely due to arthritis - Respiratory: Reports use of oxygen therapy and inhalers for COPD management - Cardiovascular: Denies chest pain - Gastrointestinal: Denies abdominal pain Physical Exam - Respiratory: Good air entry noted on auscultation Results - Labs: Normal blood count with no anemia, stable renal function, hemoglobin A1c of 7.1, LDL cholesterol 95, triglycerides 164, proteinuria present - Imaging: Last CAT scan in June 2022 showed slow resolution of lung changes Plan The patient will continue with her current diabetes management regimen, including Androcepa, metformin, and Jardiance. Due to elevated blood pressure, the dosage of amlodipine will be increased from 5 mg to 10 mg to achieve better control. The patient is advised to monitor her liver function due to mildly elevated liver numbers and to undergo an abdominal ultrasound as previously recommended. For COPD management, the patient will continue using Breo, albuterol, and oxygen therapy, with a follow-up to assess lung function improvement. The patient is encouraged to maintain control over her blood sugar, blood pressure, cholesterol, and weight to manage proteinuria and overall kidney health. For joint pain, the patient may continue using Voltaren gel and consider glucosamine chondroitin supplementation. Magnesium supplementation is suggested for leg cramps, with caution regarding potential side effects such as diarrhea. Patient was informed and verbally consented to the use of an ambient scribe for clinic note documentation during this visit. Discussion Notes During the visit, we discussed the management of the patient's diabetes, hypertension, and COPD. I recommended increasing the amlodipine dosage to better control her blood pressure and advised her to monitor her liver function due to mildly elevated liver numbers. We also talked about the importance of maintaining control over her blood sugar, blood pressure, cholesterol, and weight to manage proteinuria. For her joint pain, I suggested continuing with Voltaren gel and considering glucosamine chondroitin supplementation. Magnesium supplementation was discussed for leg cramps, with a note on potential side effects. Patient Instructions - Continue taking Androcepa, metformin, and Jardiance as prescribed. - Increase amlodipine dosage to 10 mg for better blood pressure control. - Monitor liver function and schedule an abdominal ultrasound. - Use Breo, albuterol, and oxygen therapy as directed for COPD management. - Maintain control over blood sugar, blood pressure, cholesterol, and weight. - Use Voltaren gel for joint pain and consider glucosamine chondroitin supplementation. - Consider magnesium supplementation for leg cramps, but be aware of potential diarrhea. Medications: Changed From amlodipine 5 mg PO DAILY 90 tabs 1RF I10 - Essential (primary) hypertension To amlodipine 10 mg PO DAILY 90 tabs 1RF I10 - Essential (primary) hypertension
== END 2024-09-25 09:26 | disposition home or self-care (01) ==
LOC: HO.HMCH 08:31
PROVIDERS: PCP Internal Medicine; Visit Provider Internal Medicine
DX: E11.65 Type 2 diabetes mellitus with hyperglycemia (principal); Z79.4 Long term (current) use of insulin; J44.9 Chronic obstructive pulmonary disease, unspecified; E78.00 Pure hypercholesterolemia, unspecified; I10 Essential (primary) hypertension; F41.1 Generalized anxiety disorder

== ENCOUNTER → 2024-09-25 08:30 | Outpatient (BNVA) | payer OTHER, SELFPAY | PROVIDERS: PCP Internal Medicine; Visit Provider Internal Medicine | DX: E11.65 Type 2 diabetes mellitus with hyperglycemia (principal); E78.00 Pure hypercholesterolemia, unspecified; I10 Essential (primary) hypertension; J44.9 Chronic obstructive pulmonary disease, unspecified; F41.1 Generalized anxiety disorder; Z79.4 Long term (current) use of insulin; Z79.84 Long term (current) use of oral hypoglycemic drugs; Z79.899 Other long term (current) drug therapy; Z13.30 Encounter for screening examination for mental health and behavioral disorders, unspecified | CPT/HCPCS: 96127; 99212 ==

== ENCOUNTER 2024-10-23 09:27 | Outpatient (REF) | payer OTHER, SELFPAY ==
--- NOTE | ~2024-10-23 | US_ITS ---
EXAMINATION: US ABDOMEN COMPLETE WITH LIVER ELASTOGRAPHY HISTORY: R79.89 - Other specified abnormal findings of blood chemistry TECHNIQUE: Real-time grayscale ultrasound imaging of the abdomen was performed and images were reviewed. COMPARISON: Comparison is made with the prior examination dated 10/14/2015. FINDINGS: Liver: The right lobe of the liver measures 15.8 cm in size. The left lobe of the liver measures 10.7 cm in size. The liver demonstrates normal homogeneous echotexture. The There is normal hepatopedal flow in the portal vein. Ultrasound elastography of the liver was performed with 10 separate measurements of the liver parenchyma with the patient in the supine position. Measurements were obtained approximately 2 cm below Conrado's capsule and perpendicular to the capsule. The median shear wave velocity is 0.85 m/s. The interquartile range/median (IQR/median) is 0.13. Gallbladder and biliary tree: The gallbladder is surgically absent. The common bile duct measures 7 mm diameter. Kidneys: The right kidney measures 10.5 cm in length and demonstrates a 1.8 x 1.8 x 1.9 cm lower pole cyst. The left kidney measures 10.5 cm in length and demonstrates a 0.7 x 0.6 x 0.6 cm lower pole cyst. The kidneys are otherwise unremarkable, without evidence of solid masses, hydronephrosis, or calculi. Pancreas: The pancreatic head, neck, and body are unremarkable. The pancreatic tail is obscured by bowel gas. Spleen: The spleen is normal in size and contour, measuring 9.6 cm in length. There are hypoechoic areas within the spleen measuring up to 1.5 cm in size. Abdominal aorta and inferior vena cava: The visualized portions of the abdominal aorta and inferior vena cava are normal in caliber. There is no free fluid in the abdomen. US/US abdomen comp w elastography IMPRESSION: 1. Hepatic steatosis. 2. Bilateral renal cysts as described. 3. Nonspecific hypoechoic foci within the spleen measuring up to 1.5 cm. Follow-up is suggested. The median shear wave velocity in the liver is 0.85 m/s, corresponding to a median liver stiffness of 2.2 kPa. The IQR/median value is 0.13. This is indicative of a quality data set. Findings are indicative of a normal elastography value with a low likelihood of severe fibrosis or cirrhosis. REFERENCE: Society of Radiologists in Ultrasound Liver Stiffness Thresholds (2020): LIVER STIFFNESS THRESHOLDS: *Shear wave velocity less than 1.3 m/s (Liver Stiffness equal or less than 5 kPa): High probability of being normal. *Shear wave velocity less than 1.7 m/s (Liver Stiffness less than 9 kPa): In the absence of other known clinical signs, rules out compensated advanced chronic liver disease. *Shear wave velocity between 1.7-2.1 m/s (Liver Stiffness 9-13 kPa): Suggestive of compensated advanced chronic liver disease but need further test for confirmation. *Shear wave velocity between 2.1-2.4 m/s (Liver Stiffness 13-17 kPa): Rules in compensated advanced chronic liver disease. *Shear wave velocity greater than 2.4 m/s (Liver Stiffness over 17 kPa): Suggestive of clinically significant portal hypertension. QUALITY OF DATA SET: *IQR/Median value equal or less than 0.30 implies a quality data set. *IQR/Median value over 0.30 implies a poor quality data set. SIGNIFICANT CHANGE FROM PRIOR EXAM: Significant change if liver stiffness measurement is 10% or greater from prior exam. OTHER CONSIDERATIONS: The stage of liver fibrosis may be overestimated in the setting of acute hepatitis, liver inflammation, elevated liver function tests, hepatic vascular congestion, obstructive cholestasis, non-fasting state, and infiltrative diseases such as amyloidosis and lymphoma. In some patients with NAFLD, the liver stiffness thresholds for compensated advanced chronic liver disease may be lower. In causes other than viral hepatitis and NAFLD, liver stiffness thresholds are not well established. Electronically signed by: Delvin Saenz MD 10/23/2024 10:24 AM EDT
== END 2024-10-23 09:28 | disposition home or self-care (01) ==
LOC: HO.US 09:27
PROVIDERS: PCP Internal Medicine; Visit Provider Physician Assistant
DX: R79.89 Other specified abnormal findings of blood chemistry (principal)
CPT/HCPCS: 76700; 76981

== ENCOUNTER → 2024-10-23 09:32 | Outpatient (BNV) | payer OTHER, SELFPAY | PROVIDERS: PCP Internal Medicine; Visit Provider Radiology Diagnostic Radiology | DX: K76.0 Fatty (change of) liver, not elsewhere classified (principal) | CPT/HCPCS: 76700 ==

== ENCOUNTER 2024-10-28 14:21 | Outpatient (AMB) | payer OTHER, SELFPAY ==
--- NOTE | 2024-10-28 14:45 | MHC.PC.OV ---
Vital Signs 10/28/24 14:46 Height 5 ft 3 in Weight 221 lb 7 oz BMI 39.2 BP 130/72 Blood Pressure Location Lt brachial Position Sitting Pulse 65 Pulse Source Pulse Oximeter Temp 97.1 F Temp Source Temporal Artery Scan Pulse Oximetry (%) 95 Oxygen Delivery Method Room Air Intake Visit Reasons: US results, referral request Intake Note: Patient is here to follow up on UD results and referral request. 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 Strip Installer Required: No Purification Operator Helper: Not Required per policy Accompanied by: Self / Same As Patient Allergies egg Allergy (Severe, Verified 10/28/24 14:46) throat swells up milk Allergy (Severe, Verified 10/28/24 14:46) throat swells up avocado Allergy (Intermediate, Verified 10/28/24 14:46) lip swelling lisinopril Allergy (Unknown, Verified 10/28/24 14:46) Unknown dulaglutide (From [facility]) Adverse Reaction (Intermediate, Verified 10/28/24 14:46) pancreatitis pioglitazone Adverse Reaction (Intermediate, Verified 10/28/24 14:46) Swelling Tobacco use date assessed: 10/28/24 Dental Screening Dental Screen Date: 06/08/24 [facility] Medical History Obesity Hypoxemia Witnessed apneic spells Eczema Hordeolum externum left eye, unspecified eyelid Obesity Headache History of acute respiratory distress syndrome (ARDS) Persistent insomnia Respiratory failure with hypoxia Pneumonia due to severe acute respiratory syndrome coronavirus 2 (SARS-CoV-2) COVID-19 virus infection Cavitary lesion of lung Obesity (BMI 30-39.9) Anxiety and depression Hypersomnia Acute neck sprain Post covid-19 condition, unspecified Restrictive lung disease Lower extremity edema Pneumonia COVID-19 virus infection Diabetic nephropathy associated with type 2 diabetes mellitus Diabetic neuropathy associated with type 2 diabetes mellitus Acute meniscal tear of right knee Right thyroid nodule Psoriasis Hypertension Type 2 diabetes mellitus with hyperglycemia Hypercholesterolemia Osteoarthritis Insomnia GERD (gastroesophageal reflux disease) Diabetic nephropathy Bilateral carpal tunnel syndrome Surgical History History of D&C History of cholecystectomy History of section History of tubal ligation Family History Father Medical history unknown Mother Diabetes Hypertension Maternal Grandmother Pancreatic cancer Maternal Aunt Breast cancer Sister Breast cancer Social History Household Members: Family Housing: Apartment Are you a primary children's zoo caretaker to a significant other at home: No Do you presently have visiting nurse or other home services: No Alcohol intake: never Patient Tobacco Use Status: Never used Tobacco Tobacco use type: Cigarette e-Cigarette/Vaping Use: Never Used Second Hand Smoke Exposure: Yes service: No Current occupational status: disabled Cognitive needs: No Hearing needs: No Vision needs: No Questionnaire Thrive Questionnaire Date Thrive assessed: 06/08/24 I am a: Patient What is your living situation today?: I have a steady place to live Within the past 12 months, did the food you bought not last and you didn't have the money to get more?: Never true Within the past 12 months, did you worry whether your food would run out before you got money to buy more?: Never true Do you have trouble paying for medicines?: No Do you have trouble getting transportation to medical appointments?: No Do you have trouble paying your heating and electricity bill?: No Do you have trouble taking care of your child, family member or friend?: No Do you have trouble with day-to-day activities such as bathing, preparing meals, shopping, managing finances, etc.?: Yes Are you currently unemployed and looking for a job?: No Are you interested in more education?: No Please select the resources that you would like help with: None Currently or been in a relationship where the following occur: No concerns reported THRIVE Score: 0 NANCY-7 AMB Questionnaire NANCY-7 Date NANCY - 7 assessed: 06/08/24 Source: Developed by Drs. Delvin Head, Ashley Rahman, Vinod Manzanares and colleagues, with an educational jo-ann from [employer]. Physical exam (Primary Care) Vital Signs: Last Vital Signs Temp 97.1 F 10/28/24 14:46 Pulse 65 10/28/24 14:46 BP 130/72 10/28/24 14:46 Pulse Ox 95 10/28/24 14:46 Oxygen Delivery Method Room Air 10/28/24 14:46 BMI result Body Mass Index 39.2 Tobacco/Smoking Status: Tobacco use Status Tobacco use date assessed 10/28/24 10/28/24 14:50 Patient Tobacco Use Status Never used Tobacco 10/28/24 14:46 Tobacco use type Cigarette 10/28/24 14:46 e-Cigarette/Vaping Use Never Used 10/28/24 14:46 Thrive Assessment: Date of Thrive Assessment Date Thrive assessed 06/08/24 10/28/24 14:46 Currently or been in a relationship where the following occur: No concerns reported Const General: alert; No acute distress Eyes Conjunctivae: conjunctivae normal Resp Auscultation: clear to auscultation bilaterally Cardio Rate: regular rate Rhythm: regular rhythm GI Inspection: Yes normal to inspection Extrem General: Yes normal to inspection and No edema Coding Level of Care Code Est Pt Level 4 (16315) Diagnoses Type 2 diabetes mellitus with hyperglycemia, with long-term current use of insulin E11.65; Z79.4 Diabetes mellitus enterprise cloud architect insulin use: with enterprise cloud architect use Fatty liver K76.0 Gastroesophageal reflux disease without esophagitis K21.9 Esophagitis presence: without esophagitis Primary hypertension I10 Hypertension type: primary hypertension COPD (chronic obstructive pulmonary disease) J44.9 Osteoarthritis M19.90 Assessment & Plan Assessment & Plan (1) Type 2 diabetes mellitus with hyperglycemia: Code(s): E11.65 - Type 2 diabetes mellitus with hyperglycemia Category: Medical Qualifiers: Diabetes mellitus enterprise cloud architect insulin use: with shelter use Qualified Code(s): E11.65 - Type 2 diabetes mellitus with hyperglycemia; Z79.4 - [facility]FP (current) use of insulin Plan: Decrease the amount of carbohydrate intake, pasta, bread, rice and potatoes are all sugar and that is aside from all the sweet stuff, remember that fruits are good but they are Sweet also. Patient is on Jardiance 25 mg once a day metformin 500 mg once a day and Tresiba 30 units once a day (2) Fatty liver: Code(s): K76.0 - Fatty (change of) liver, not elsewhere classified Category: Medical Plan: Low-fat diet and exercise (3) GERD (gastroesophageal reflux disease): Code(s): K21.9 - Gastro-esophageal reflux disease without esophagitis Category: Medical Qualifiers: Esophagitis presence: without esophagitis Qualified Code(s): K21.9 - Gastro-esophageal reflux disease without esophagitis Plan: Avoid the foods that causes that usually spicy foods, tomato products, juices, coffee, soda and foods that your sensitive to. After eating do not lie down, allow 3-4 hours before in lie down. And keep the head of bed above 30 degrees to avoid the acid from going up. (4) Hypertension: Code(s): I10 - Essential (primary) hypertension Category: Medical Qualifiers: Hypertension type: primary hypertension Qualified Code(s): I10 - Essential (primary) hypertension Plan: Continue with blood pressure medication. Decrease salt intake and exercise patient takes losartan 100 mg once a day atenolol 100 mg once a day (5) COPD (chronic obstructive pulmonary disease): Code(s): J44.9 - Chronic obstructive pulmonary disease, unspecified Category: Medical Plan: Continue with albuterol inhaler as needed Breo inhaler and remember to rinse mouth after using (6) Osteoarthritis: Code(s): M19.90 - Unspecified osteoarthritis, unspecified site Category: Medical Plan History of Present Illness The patient is a 54-year-old female presenting for a follow-up visit. The patient has a history of Gastroesophageal Reflux Disease (GERD), which has been managed with lifestyle modifications and medications. She also has Diabetes Mellitus, with her last A1c recorded at 7.1, indicating suboptimal control. Her diabetes management includes medications such as Jardiance, Metformin, and Entroceba, along with dietary modifications and exercise. The patient has a history of Psoriasis, Peripheral Vascular Disease, Generalized Anxiety Disorder, Hypertension, and Hypercholesterolemia. Her hypertension is managed with Losartan and Atenolol, and her cholesterol levels are controlled with Atorvastatin, with her LDL cholesterol at 95. She has Chronic Obstructive Pulmonary Disease (COPD) and uses an Albuterol inhaler as needed, along with a Brio inhaler. The patient was noted to have hepatic steatosis on a recent ultrasound, with a low likelihood of cirrhosis. She also has bilateral renal cysts, which are being monitored without intervention. Additionally, she experiences arthritis and plantar tendinitis, which contribute to her pain and mobility issues. Health Maintenance - Dietary modifications and exercise for weight management and diabetes control - Monitoring of hepatic steatosis and renal cysts Social History - Attends sikh regularly on Tuesdays, , and Sundays - Engages in dietary modifications and exercise for health improvement Review of Systems - Musculoskeletal: Reports pain due to arthritis and plantar tendinitis - Respiratory: Reports use of Albuterol and Brio inhalers for COPD management Physical Exam Results - Ultrasound: Hepatic steatosis with low likelihood of cirrhosis, bilateral renal cysts - Blood Work: Normal blood count, electrolytes, renal function with creatinine of 1.29, A1c of 7.1, LDL cholesterol of 95, normal thyroid and vitamin D levels Plan The management plan for the patient's diabetes includes continuing current medications, Jardiance, Metformin, and Entroceba, along with dietary modifications and exercise to improve glycemic control. For hypertension, the patient will continue with Losartan and Atenolol to maintain blood pressure control. The patient's hypercholesterolemia is managed with Atorvastatin, and her LDL cholesterol is currently at a satisfactory level of 95. The patient is advised to continue using her Albuterol and Brio inhalers for COPD management, with instructions to rinse her mouth after using the Brio inhaler. Monitoring of hepatic steatosis and renal cysts will continue, with no immediate intervention required. For arthritis and plantar tendinitis, a referral to rheumatology has been made to address her pain and mobility issues. Patient was informed and verbally consented to the use of an ambient scribe for clinic note documentation during this visit. Discussion Notes During the visit, I discussed with the patient the importance of managing her diabetes through medication adherence and lifestyle changes, including diet and exercise. We reviewed her hypertension and cholesterol management, emphasizing the continuation of her current medications. I explained the findings of her recent ultrasound, reassuring her about the low likelihood of cirrhosis and the benign nature of her renal cysts. We also discussed her COPD management, including the use of inhalers, and addressed her concerns about arthritis and plantar tendinitis, with a referral to rheumatology for further evaluation. Patient Instructions - Continue taking Jardiance, Metformin, and Entroceba as prescribed. - Follow a no-fat diet and engage in regular exercise. - Take Losartan and Atenolol daily for blood pressure control. - Use Albuterol and Brio inhalers as needed for COPD, and rinse mouth after using Brio. - Monitor weight and maintain a healthy lifestyle to manage hepatic steatosis. - Attend follow-up appointment with rheumatology for arthritis and plantar tendinitis. Orders: Referrals Rheumatology Referral M19.90 - Unspecified osteoarthritis, unspecified site
[2024-10-28 14:46] VITALS: BP 130/72; PULSE 65; TEMP 36.2; O2SAT 95; BMI 39.2
== END 2024-10-28 15:13 | disposition home or self-care (01) ==
LOC: HO.HMCH 14:22
PROVIDERS: PCP Internal Medicine; Visit Provider Internal Medicine
DX: E11.65 Type 2 diabetes mellitus with hyperglycemia (principal); Z79.4 Long term (current) use of insulin; J44.9 Chronic obstructive pulmonary disease, unspecified; K76.0 Fatty (change of) liver, not elsewhere classified; K21.9 Gastro-esophageal reflux disease without esophagitis; I10 Essential (primary) hypertension; M19.90 Unspecified osteoarthritis, unspecified site

== ENCOUNTER → 2024-10-28 14:21 | Outpatient (BNVA) | payer OTHER, SELFPAY | PROVIDERS: PCP Internal Medicine; Visit Provider Internal Medicine | DX: I10 Essential (primary) hypertension (principal); E11.65 Type 2 diabetes mellitus with hyperglycemia; K76.0 Fatty (change of) liver, not elsewhere classified; K21.9 Gastro-esophageal reflux disease without esophagitis; J44.9 Chronic obstructive pulmonary disease, unspecified; M19.90 Unspecified osteoarthritis, unspecified site; E78.00 Pure hypercholesterolemia, unspecified; Z79.4 Long term (current) use of insulin; Z79.899 Other long term (current) drug therapy | CPT/HCPCS: 99212 ==

== ENCOUNTER → 2024-11-06 13:28 | Outpatient (BNV) | payer OTHER, SELFPAY | PROVIDERS: PCP Internal Medicine; Visit Provider Radiology Diagnostic Radiology | DX: D73.89 Other diseases of spleen (principal) | CPT/HCPCS: 74183 ==

== ENCOUNTER 2024-11-06 13:29 | Outpatient (REF) | payer OTHER, SELFPAY ==
--- NOTE | ~2024-11-06 | MR_ITS ---
EXAMINATION: MR ABDOMEN WITHOUT THEN WITH IV CONTRAST HISTORY: D73.89 - Other diseases of spleen COMPARISON: Correlation is made with an abdominal ultrasound dated 10/23/2024. TECHNIQUE: Axial in and out of phase T1-weighted gradient echo, axial diffusion weighted, and axial and coronal HASTE T2 with fat saturation images were obtained through the abdomen. Subsequently, fat suppressed axial and coronal T1-weighted images were obtained after the intravenous administration of 10 mL Gadavist. FINDINGS: Liver: There is diffuse loss of signal intensity in the liver on opposed phase images, compatible with steatosis. There is no enhancing liver mass. The hepatic and portal veins are patent. There is no intrahepatic biliary dilatation. Gallbladder/biliary tree: No gallstones are identified. The common bile duct is normal in caliber. No intraluminal filling defects are identified to suggest choledocholithiasis. Spleen: There are innumerable T2 hypointense lesions throughout the spleen measuring up to 10 mm in size. These demonstrate delayed enhancement. Pancreas: The pancreas is unremarkable. There is no enhancing pancreatic mass. The pancreatic duct is normal in caliber. Adrenals: The adrenal glands are unremarkable. Kidneys: There is a 1.9 cm cyst at the lower pole of the right kidney. The left kidney is unremarkable. There is no hydronephrosis. Lymph nodes: There is no retroperitoneal lymphadenopathy in the upper abdomen. Fluid: There is no ascites in the upper abdomen. Visualized bowel: The visualized small and large bowel loops are unremarkable in appearance. Visualized bones: The visualized bones demonstrate normal marrow signal intensity. MR/MR abdomen wo/w con IMPRESSION: Innumerable T2 hypointense enhancing lesions scattered throughout the spleen. Imaging findings are nonspecific, and differential diagnostic considerations include both benign and malignant neoplasms and sarcoidosis. Electronically signed by: Delvin Saenz MD 11/06/2024 02:47 PM EDT
== END 2024-11-06 13:30 | disposition home or self-care (01) ==
LOC: HO.MRI 13:29
PROVIDERS: PCP Internal Medicine; Visit Provider Physician Assistant
DX: D73.89 Other diseases of spleen (principal)
CPT/HCPCS: 74183; A9585

== ENCOUNTER 2024-11-11 09:15 | Outpatient (AMB) | payer OTHER, SELFPAY ==
[2024-11-11 09:21] VITALS: BP 124/80; PULSE 78; O2SAT 96; BMI 39.8
--- NOTE | 2024-11-11 09:21 | A.OFFVIS_ITS ---
Vital Signs 11/11/24 09:21 Height 5 ft 3 in Weight 224 lb 13.944 oz BMI 39.8 BP 124/80 Blood Pressure Location Lt brachial Position Sitting Pulse 78 Pulse Source Pulse Oximeter Pulse Oximetry (%) 96 Oxygen Delivery Method Room Air Intake Visit Reasons: COPD Intake Note: pt is here for follow up and states she is using oxygen at night ad prn during the day with exertion, she has other medical things going on. Maxillofacial Prosthodontist Required: Yes Maxillofacial Prosthodontist Services: Maxillofacial Prosthodontist Present Maxillofacial Prosthodontist Name: Racquel Leigh Yap Allergies egg Allergy (Severe, Verified 11/11/24 09:38) throat swells up milk Allergy (Severe, Verified 11/11/24 09:38) throat swells up avocado Allergy (Intermediate, Verified 11/11/24 09:38) lip swelling lisinopril Allergy (Unknown, Verified 11/11/24 09:38) Unknown dulaglutide (From [facility]) Adverse Reaction (Intermediate, Verified 11/11/24 09:38) pancreatitis pioglitazone Adverse Reaction (Intermediate, Verified 11/11/24 09:38) Swelling Medication List - Last Reconciled 11/11/24 by Zoila Knutson MD albuterol sulfate 90 mcg/actuation (Ventolin HFA) 4 puffs inhalation Q3H PRN alcohol swabs (Alcohol Wipes) 1 pad topical .QD amlodipine 10 mg PO DAILY apremilast (Otezla) 30 mg PO BID atenolol 100 mg PO DAILY atorvastatin 10 mg PO QPM azelastine 2 sprays intranasal Q12H blood pressure monitor (Blood Pressure Kit) As directed blood sugar diagnostic (FreeStyle Lite Strips) DIRECTED TESTS 4X/DAY blood-glucose meter (FreeStyle Napoleon Lite kit) As directed blood-glucose sensor (FreeStyle Jared 3 Plus Sensor device) Use daily As directed to monitor glucose blood-glucose,audit clerk,cont (FreeStyle Jared 3 [place]) Use daily As directed to monitor blood glucose Breo Ellipta 200-25 mcg/dose (fluticasone furoate-vilanterol) 1 inh inhalation DAILY NS calcipotriene 0.005% topical BID PRN cholecalciferol (vitamin D3) (Vitamin D3) 50 mcg PO DAILY clonazepam 1 mg PO BID PRN compress.stocking,knee,reg,lrg As directed 20-30 mm HG diclofenac sodium 1% (Voltaren Arthritis Pain) 4 grams topical QID disposable gloves As directed divalproex 500 mg PO BID empagliflozin (Jardiance) 25 mg PO DAILY escitalopram oxalate 20 mg PO DAILY fluticasone propionate 50 mcg/actuation (Flonase Allergy Relief) 2 sprays intranasal DAILY [HUMIDIFIER As directed] [incontinence wipes As directed] ipratropium bromide 2.5 mL inhalation Q6H PRN 30 days lancets (FreeStyle Lancets) As directed lancets (FreeStyle Lancets) use daily as directed to check blood glucose levocetirizine (Xyzal) 5 mg PO DAILY losartan 100 mg PO DAILY metformin 500 mg PO DAILY nebulizers (Aeroneb Go Nebulizer) As directed olopatadine 0.1% 1 drp ophthalmic (eye) BID Oxygen Home Use As directed pen needle, diabetic USE PARMINDER LO INDICADO DIRECTED INJECT ONCE A DAY quetiapine 100 mg PO BEDTIME [sanitary pads As directed] sumatriptan succinate (Imitrex) 50 mg PO .QD PRN Tresiba FlexTouch U-100 (insulin degludec) 30 units (0.3 mL) subcut BEDTIME NS Do you need a note to return to daycare/school/sports/work: No HPI HPI COPD: Details: 54 years old female very pleasant, is here for routine follow-up after 4 months. From the respiratory point of view she has been very stable. She has only occasional minimal cough. She gets short of breath on walking up hill or climbing stairs . She sleeps well. Uses O2 2 L/minute at night, and uses O2 only when she exerts, such as walking more than a few blocks She remains heavy, has put on a few more lb of weight. She is being worked up for hepatic steatosis and nonspecific densities in the spleen. [facility] Medical History Obesity Hypoxemia Witnessed apneic spells Eczema Hordeolum externum left eye, unspecified eyelid Obesity Headache History of acute respiratory distress syndrome (ARDS) Persistent insomnia Respiratory failure with hypoxia Pneumonia due to severe acute respiratory syndrome coronavirus 2 (SARS-CoV-2) COVID-19 virus infection Cavitary lesion of lung Obesity (BMI 30-39.9) Anxiety and depression Hypersomnia Acute neck sprain Post covid-19 condition, unspecified Restrictive lung disease Lower extremity edema Pneumonia COVID-19 virus infection Diabetic nephropathy associated with type 2 diabetes mellitus Diabetic neuropathy associated with type 2 diabetes mellitus Acute meniscal tear of right knee Right thyroid nodule Psoriasis Hypertension Type 2 diabetes mellitus with hyperglycemia Hypercholesterolemia Osteoarthritis Insomnia GERD (gastroesophageal reflux disease) Diabetic nephropathy Bilateral carpal tunnel syndrome Surgical History History of D&C History of cholecystectomy History of section History of tubal ligation Family History Father Medical history unknown Mother Diabetes Hypertension Maternal Grandmother Pancreatic cancer Maternal Aunt Breast cancer Sister Breast cancer Social History Household Members: Family Housing: Apartment Are you a primary child care development specialist to a significant other at home: No Do you presently have visiting nurse or other home services: No Alcohol intake: never Patient Tobacco Use Status: Never used Tobacco Tobacco use type: Cigarette e-Cigarette/Vaping Use: Never Used Second Hand Smoke Exposure: Yes service: No Current occupational status: disabled Cognitive needs: No Hearing needs: No Vision needs: No Review of Systems Const All systems reviewed & are unremarkable except as noted in HPI and below Eyes Reports no additional complaints ENT Reports no additional complaints Card Denies chest pain, Denies irregular heart rhythm and Denies leg edema Resp Reports as per HPI GI Reports no additional complaints Reports no additional complaints Musc Reports abnormal gait (WEAK AND SOMETIME HAS TO USE A CANE) and Reports back pain Skin/Breast Reports system reviewed and no additional complaints, except as documented Neuro Reports abnormal gait (WEAK AND SOMETIME HAS TO USE A CANE) Psych Reports no additional complaints Physical Exam Vital Signs: Last Vital Signs Pulse 78 11/11/24 09:21 BP 124/80 11/11/24 09:21 Pulse Ox 96 11/11/24 09:21 Oxygen Delivery Method Room Air 11/11/24 09:21 BMI result Body Mass Index 39.8 Const General: healthy appearing, comfortable, no acute distress, alert and awake Orientation/consciousness: patient oriented x3 HEENT Head: Yes normal to inspection General nose exam: No nasal polyps present and No nasal discharge present Face and sinus: Yes sinuses nontender Mouth: oropharynx normal Throat: Yes posterior oropharynx normal Eyes General: appearance normal, both eyes and all related structures Neck Neck: Yes normal visual inspection, Yes no lymphadenopathy, Yes trachea midline and Yes no JVD Thyroid: Thyroid normal Chest Chest palpation & inspection: normal inspection of the chest, normal palpation of entire chest wall and no tenderness Resp Other: PERCUSSION NOTE IS RESONANT, EXCEPT OVER THE BASILAR AREAS WHERE IT IS SOMEWHAT DIMINISHED DUE TO OBESITY .. BREATH SOUNDS ARE DECREASED OVER THE LOWER LOBES BUT CLEAR . NO DEFINITE CREPITATIONS OR WHEEZES ARE HEARD . Cardio Palpation: normal PMI Rate: regular rate Rhythm: regular rhythm Heart sounds: no gallops and no murmurs Peripheral pulses: Peripheral pulses 2+ throughout GI Palpation (GI): Soft to palpation, nontender, No hepatosplenomegaly present, no masses and Other GI palpation findings present (ABDOMEN IS MODERATELY OBESE) Auscultation: normal bowel sounds Back/Spine/Pelvis Thoracic/Lumbar Spine: thoracic and lumbar spine normal to inspection and thoraco-lumbar ROM limited Skin General skin exam: no rashes or lesions noted Neuro General: patient oriented x3, No gait normal (IMPAIRED DUE TO WEAKNESS OF THE LOWER EXTREMITIES, WHEELCHAIR TO WALKER.) and no focal motor deficits Cranial nerves: Yes CN's II-XII intact bilaterally Extrem General: Yes normal to inspection, Yes no clubbing, cyanosis or edema and Yes no calf tenderness Psych Appearance: grossly normal and well kempt Speech and movement: Normal speech and movement present Assessment & Plan Assessment & Plan (1) Restrictive lung disease: Comment: CONFIRMED BY COMPLETE PFT . SHE DOES HAVE SEVERE RESTRICTIVE PULMONARY DISORDER, MOST LIKELY RESIDUAL FROM HER PREVIOUS COVID INFECTION, AND OBESITY. CLINICALLY IS IMPROVING SLOWLY. SHE MAY ALSO HAVE MILD OBSTRUCTIVE COMPONENT WELL. Code(s): J98.4 - Other disorders of lung Category: Medical Plan: ADVISED TO LOSE WEIGHT SLOWLY. KEEP ON DOING DEEP BREATHING EXERCISES 3 TIMES A DAY. (2) Hypoxemia: Comment: SHE HAS HAD NOCTURNAL AND EXERCISE INDUCED HYPOXEMIA A RESULT OF ARDS, AND RESIDUAL FIBROTIC CHANGES IN THE LUNGS. CURRENTLY USES O2 2 L/MINUTE AT NIGHT, AND P.R.N. DURING THE DAYTIME AND IS DOING WELL . Code(s): R09.02 - Hypoxemia Category: Medical Plan: CONTINUE USING OXYGEN NOTED ABOVE . (3) COPD (chronic obstructive pulmonary disease): Comment: SHE HAS CLINICAL FEATURES OF CHRONIC OBSTRUCTIVE AIRWAY DISORDER. THOUGH IT DID NOT SHOW UP ON THE PULMONARY FUNCTION TEST. Code(s): J44.9 - Chronic obstructive pulmonary disease, unspecified Category: Medical Plan: CONTINUE USING BREO 200-251 INHALATION DAILY, AND USE ALBUTEROL 2 PUFFS Q 4-6 HOURS ONLY NEEDED. Coding Level of Care Code Est Pt Level 3 (85367) Diagnoses Restrictive lung disease J98.4 Hypoxemia R09.02 COPD (chronic obstructive pulmonary disease) J44.9
== END 2024-11-11 09:39 | disposition home or self-care (01) ==
LOC: HO.HPS 09:16
PROVIDERS: PCP Internal Medicine; Visit Provider Internal Medicine
DX: J98.4 Other disorders of lung (principal); R09.02 Hypoxemia; J44.9 Chronic obstructive pulmonary disease, unspecified
CPT/HCPCS: 99213

== ENCOUNTER → 2024-11-11 09:15 | Outpatient (BNVA) | payer OTHER, SELFPAY | PROVIDERS: PCP Internal Medicine; Visit Provider Internal Medicine | DX: R09.02 Hypoxemia (principal); J98.4 Other disorders of lung; J44.9 Chronic obstructive pulmonary disease, unspecified | CPT/HCPCS: 99212 ==

== ENCOUNTER → 2024-11-20 14:00 | Outpatient (BNV) | payer OTHER, SELFPAY | PROVIDERS: PCP Internal Medicine; Referring Provider Internal Medicine; Visit Provider Internal Medicine Medical Oncology | DX: D73.89 Other diseases of spleen (principal) | CPT/HCPCS: 99204 ==

== ENCOUNTER 2024-12-04 08:41 | Outpatient (AMB) | payer OTHER, SELFPAY ==
--- NOTE | 2024-12-04 08:45 | MHC.OFFVIS ---
Vital Signs 12/04/24 09:00 Height 5 ft 3 in Weight 222 lb 0.088 oz BMI 39.3 BP 160/98 H Blood Pressure Location Lt brachial Position Sitting Intake Visit Reasons: T2DM Intake Note: Patient present today for Type 2 Diabetes Mellitus Last Diabetic eye exam: Last exam was on 11/2024 Last Podiatry Visit: Doesn't have one Random Glucose: 139 mg/dl HgA1C: 7.4% [employer] Prescription Clerk Required: Yes [employer] Prescription Clerk Language: Hand Picker Name: Meena [id number] Information Interpreted: non-clinical & clinical Accompanied by: Self / Same As Patient Allergies egg Allergy (Severe, Verified 12/04/24 09:05) throat swells up milk Allergy (Severe, Verified 12/04/24 09:05) throat swells up avocado Allergy (Intermediate, Verified 12/04/24 09:05) lip swelling lisinopril Allergy (Unknown, Verified 12/04/24 09:05) Unknown dulaglutide (From [facility]) Adverse Reaction (Intermediate, Verified 12/04/24 09:05) pancreatitis pioglitazone Adverse Reaction (Intermediate, Verified 12/04/24 09:05) Swelling Medication List - Last Reconciled 12/04/24 by Judi Cazares PA-C albuterol sulfate 90 mcg/actuation (Ventolin HFA) 4 puffs inhalation Q3H PRN alcohol swabs (Alcohol Wipes) 1 pad topical .QD amlodipine 10 mg PO DAILY apremilast (Otezla) 30 mg PO BID atenolol 100 mg PO DAILY atorvastatin 10 mg PO QPM azelastine 2 sprays intranasal Q12H blood pressure monitor (Blood Pressure Kit) As directed blood sugar diagnostic (FreeStyle Lite Strips) DIRECTED TESTS 4X/DAY blood-glucose meter (FreeStyle [place] Lite kit) As directed blood-glucose sensor (FreeStyle Jared 3 Plus Sensor device) Use daily As directed to monitor glucose blood-glucose,steam shovel runner,cont (FreeStyle Jared 3 Gerald) Use daily As directed to monitor blood glucose Breo Ellipta 200-25 mcg/dose (fluticasone furoate-vilanterol) 1 inh inhalation DAILY NS calcipotriene 0.005% topical BID PRN cholecalciferol (vitamin D3) (Vitamin D3) 50 mcg PO DAILY clonazepam 1 mg PO BID PRN compress.stocking,knee,reg,lrg As directed 20-30 mm HG diclofenac sodium 1% (Voltaren Arthritis Pain) 4 grams topical QID disposable gloves As directed divalproex 500 mg PO BID empagliflozin (Jardiance) 25 mg PO DAILY escitalopram oxalate 20 mg PO DAILY fluticasone propionate 50 mcg/actuation (Flonase Allergy Relief) 2 sprays intranasal DAILY [HUMIDIFIER As directed] [incontinence wipes As directed] ipratropium bromide 2.5 mL inhalation Q6H PRN 30 days lancets (FreeStyle Lancets) As directed lancets (FreeStyle Lancets) use daily as directed to check blood glucose levocetirizine (Xyzal) 5 mg PO DAILY losartan 100 mg PO DAILY metformin 500 mg PO DAILY nebulizers (Aeroneb Go Nebulizer) As directed olopatadine 0.1% 1 drp ophthalmic (eye) BID Oxygen Home Use As directed pen needle, diabetic USE PARMINDER LO INDICADO DIRECTED INJECT ONCE A DAY quetiapine 100 mg PO BEDTIME [sanitary pads As directed] sumatriptan succinate (Imitrex) 50 mg PO .QD PRN Tresiba FlexTouch U-100 (insulin degludec) 30 units (0.3 mL) subcut BEDTIME NS HPI HPI T2DM: Details: Patient is a 53-year-old female with a significant past medical history of hypertension, hyperlipidemia, type 2 diabetes, peripheral vascular disease, diabetic nephropathy, and goiter presenting today for follow-up regarding her diabetes. [employer] Prescription Clerk: [id number] Freya Endo: DM-Last A1c was 7.1 and today it is 7.4. She is currently on Jardiance 25 mg, metformin 500 mg daily, Tresiba 30 units at bedtime. Previous Meds: does not tolerate higher doses of metformin. pancreatitis while on trulicity. lantus caused swelling and join paints. Actos caused swelling CGM- has not been using freestyle Jared 3 because they fall of easily for her. She had the same problem with the dexcom. The overlay patches sometimes irritate her skin. Not checking bs at all. Denies any symptoms of hypoglycemic events. States that she has felt low in the past and her symptoms include. She corrects hypoglycemia with glucose tabs or orange juice if needed. She does admit to not doing as much exercise or eating as healthy as she was previously doing. on statin and arb neurpoathy-intermittently gets tingling but no loss of sensation or weakness. No pain . nephropathy- last urine 2022 shows microalbuminuria, does not see nephrolology, on arb. CV: bp today in the office is 160/98. She is currently on losartan 100 mg daily, atenolol 100 mg daily, amlodipine 10 mg. She states her blood pressure blood pressures is elevated due to acute right knee pain. Plans to see PCP after this. States that normally her blood pressures are WNL. Her last LDL was 90. She is on atorvastatin 10 mg nightly [facility] Medical History Obesity Hypoxemia Witnessed apneic spells Eczema Hordeolum externum left eye, unspecified eyelid Obesity Headache History of acute respiratory distress syndrome (ARDS) Persistent insomnia Respiratory failure with hypoxia Pneumonia due to severe acute respiratory syndrome coronavirus 2 (SARS-CoV-2) COVID-19 virus infection Cavitary lesion of lung Obesity (BMI 30-39.9) Anxiety and depression Hypersomnia Acute neck sprain Post covid-19 condition, unspecified Restrictive lung disease Lower extremity edema Pneumonia COVID-19 virus infection Diabetic nephropathy associated with type 2 diabetes mellitus Diabetic neuropathy associated with type 2 diabetes mellitus Acute meniscal tear of right knee Right thyroid nodule Psoriasis Hypertension Type 2 diabetes mellitus with hyperglycemia Hypercholesterolemia Osteoarthritis Insomnia GERD (gastroesophageal reflux disease) Diabetic nephropathy Bilateral carpal tunnel syndrome Surgical History History of D&C History of cholecystectomy History of section History of tubal ligation Family History Father Medical history unknown Mother Diabetes Hypertension Maternal Grandmother Pancreatic cancer Maternal Aunt Breast cancer Sister Breast cancer Social History Household Members: Family Housing: Apartment Are you a primary care advocate to a significant other at home: No Do you presently have visiting nurse or other home services: No Alcohol intake: never Patient Tobacco Use Status: Never used Tobacco Tobacco use type: Cigarette e-Cigarette/Vaping Use: Never Used Second Hand Smoke Exposure: Yes service: No Current occupational status: disabled Cognitive needs: No Hearing needs: No Vision needs: No Physical Exam Vital Signs: Last Vital Signs BP 160/98 H 12/04/24 09:00 BMI result Body Mass Index 39.3 Const Orientation/consciousness: patient oriented x3 HEENT Ears: hearing grossly normal bilaterally Neck Thyroid: Thyroid normal Lymphatic: no lymphadenopathy noted Resp Auscultation: clear to auscultation bilaterally Cardio Rate: regular rate Rhythm: regular rhythm Heart sounds: S1 normal heart sound present and S2 normal heart sound present Skin General skin exam: no rashes or lesions noted Neuro General: patient oriented x3, gait normal and no focal motor deficits Results AMB Hemoglobin A1c AMB Hemoglobin A1c 7.4 % Last Edit by JENNIFER Pascual on 12/04/24 09:26 Results Reviewed Results Reviewed: Laboratory Last Values Glucose (Clinic) 139 mg/dL (60-115) H 12/04/24 09:07 Hgb A1c (Clinic) 7.4 % (4.0-6.0) H 12/04/24 09:12 Laboratory Tests 08/31/24 11/20/24 12/04/24 09:00 15:32 09:07 Creatinine 1.19 Estimated GFR 47 Glucose (Clinic) 139 H Random Glucose 92 Hemoglobin A1c % 7.1 H Triglycerides 164 H Cholesterol 171 LDL Cholesterol, Calc 95 HDL Cholesterol 44 Assessment & Plan Assessment & Plan (1) Type 2 diabetes mellitus with hyperglycemia: Code(s): E11.65 - Type 2 diabetes mellitus with hyperglycemia Category: Medical Qualifiers: 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 I gave her skin tac wipes it advised to try this to see if this helps adhere to the skin better. She will continue her current regimen Advised short term follow up in 1 month to assess blood sugars with her reader. I have also advised her that if she can not wear a sensor to check her blood sugars I would like her to fingerstick. (2) Hypertension: Code(s): I10 - Essential (primary) hypertension Category: Medical Qualifiers: Hypertension type: primary hypertension Qualified Code(s): I10 - Essential (primary) hypertension Plan: Elevated today. She is asymptomatic. Advised her to follow up with her PCP later and again we will do a short term follow up. If blood pressures are elevated at home she will let me know. Orders: Orders AMB Hemoglobin A1c Today E11.65 - Type 2 diabetes mellitus with hyperglycemia, Z13.9 - Encounter for screening, unspecified, Z79.4 - adjunct faculty for medical terminology (current) use of insulin Medications: Refilled blood-glucose sensor (FreeStyle Jared 3 Plus Sensor device) Use daily As directed to monitor glucose 2 ea 5RF E08.29 - Diabetes mellitus due to underlying condition with other diabetic kidney complication, R80.9 - Proteinuria, unspecified, Z79.4 - adjunct faculty for medical terminology (current) use of insulin Coding Level of Care Code Est Pt Level 4 (18696) Complex EM visit Add On G2211 Diagnoses Type 2 diabetes mellitus with hyperglycemia, with long-term current use of insulin E11.65; Z79.4 Diabetes mellitus mcc insulin use: with petroleum terminal plant operator use Primary hypertension I10 Hypertension type: primary hypertension
[2024-12-04 09:00] VITALS: BP 160/98; BMI 39.3
--- OUTSIDE RECORDS SUMMARY | 2024-12-04 09:07 | XMS_ITS | Encounter Summary ---
Author Organization [facility] Address [address] [place] [address] Encounters * CPT with Medical [facility] at [employer] on 2024-11-28 { reasonForRequest : Patient has strong pain on her right shoulder to her head area ", patientReports : Head pain not relieved by medication greater than 8 hours; Head pain greater than 8 hours -unrelated to falls or injury , denies :[ Worst Headache of life , New onset of vision loss , Sudden onset -unilateral weakness/gait disturbance , Fall with head strike and altered LOC , New onset of Slurred speech or difficulty finding words , Sudden Mental status changes , Head pain with fever chills and neck pain , Seizure activity ], chiefComplaints : Extremity Pain , pmh : Diabetes Mellitus Type 2, Hypertension , allergie s : Lisinopril , otherAllergies :null, painAssessment : &quo t;, visitOutcome : , additionalComments : Member calling in with shot blaster complaining of pain on the right side of her shoulder and when she moves her arm pain radiates up her neck to her head. Pain started yesterday- and attempted to call [facility] yesterday. The pain is a little worse today. Took Tylenol yesterday but it did not help the pain at all. Nothing is helping the pain- it feels worse when member lays down. Pt denies any injury prior to pain. Denies shortness of breath and chest pain. \n\n54 y.o female complains of Extremity Pain\nI provided information on the mobile health provider response time and advised the patient and/or caregiverto monitor reported signs and symptoms. I discussed the warning signs of when to seek emergency care. Diana Burgos RN } Encountered patient conscious alert and ambulatory (steady, non-ataxic gait) with family present. Patient reports on 11/27/24 while attempting to lay down for a nap, she developed right sided neck andtrapezius muscle pain. Patient denies any traumas or falls associated with the pain and recalls themoment of onset. Patient denies chest pain, shortness of breath, fevers and acute changes in vision. Skin warm, dry and of appropriate color for ethnicity. Head and neck free of trauma and edema.-JVD.Breath sounds present, clear and equal bilaterally. Abdomen is soft, non-tender and non-distended. Extremities are free of trauma and edema. [facility] contacted: patient presents recent bloodwork (11/20/24) exhibiting kidney function, values wererelayed to [facility]. 15mg IM Toradol administered after medication ???rights?? were reconciled with patient. Patient was encouraged to monitor herself for chest pain, shortness of breath, stroke symptomsor worsening pain and was encouraged to seek further medical attention, including 911, if said symptoms were to develop. Patient verbalizes understanding of the plan and states she is comfortable remaining home today. IV_(FLUIDS_AND/OR_MEDICATION), MEDICATION_IM, ORAL_MEDICATION, WOUND_CARE, ORTHOSTATIC_VITAL_SIGNS Written by Medical instED on 2024-11-28
--- OUTSIDE RECORDS SUMMARY | 2024-12-04 09:07 | XMS_ITS | Continuity of Care Document ---
Author Name [facility], Medical Address [address] [place] [address] Organization Unknown Address [address] [place] [address] Medications No known medications Problems No known problems
[2024-12-04 09:11] LABS: Glucose, Whole Blood 139 mg/dL (60-115)
== END 2024-12-04 09:30 | disposition home or self-care (01) ==
LOC: HO.ENCR 08:42
PROVIDERS: PCP Internal Medicine; Visit Provider Physician Assistant
DX: E11.65 Type 2 diabetes mellitus with hyperglycemia (principal); Z79.4 Long term (current) use of insulin; I10 Essential (primary) hypertension; Z13.9 Encounter for screening, unspecified

== ENCOUNTER → 2024-12-04 08:41 | Outpatient (BNVA) | payer OTHER, SELFPAY | PROVIDERS: PCP Internal Medicine; Visit Provider Physician Assistant | DX: E11.65 Type 2 diabetes mellitus with hyperglycemia (principal); I10 Essential (primary) hypertension; Z79.84 Long term (current) use of oral hypoglycemic drugs; Z79.4 Long term (current) use of insulin | CPT/HCPCS: 82947; 83036; 99212 ==

== ENCOUNTER 2025-01-08 08:20 | Outpatient (AMB) | payer OTHER, SELFPAY ==
[2025-01-08 08:26] VITALS: BP 138/98; BMI 39.6
--- NOTE | 2025-01-08 08:26 | A.OFFVIS_ITS ---
Vital Signs 01/08/25 08:26 Height 5 ft 3 in Weight 223 lb 12.307 oz BMI 39.6 BP 138/98 H Blood Pressure Location Lt brachial Position Sitting Intake Visit Reasons: T2DM Intake Note: Patient present today for Type 2 Diabetes Mellitus Last Diabetic eye exam: Last exam was in Nov 2024. Last Podiatry Visit: Doesn't have one Random Glucose: 119 mg/dl HgA1C: 7.4% 12/04/24 Building Maintenance Mechanic Required: Yes Building Maintenance Mechanic Language: Forging Press Lever Tender Services: Building Maintenance Mechanic Present Building Maintenance Mechanic Name: Emma Information Interpreted: non-clinical & clinical Accompanied by: Self / Same As Patient Allergies egg Allergy (Severe, Verified 01/08/25 08:32) throat swells up milk Allergy (Severe, Verified 01/08/25 08:32) throat swells up avocado Allergy (Intermediate, Verified 01/08/25 08:32) lip swelling lisinopril Allergy (Unknown, Verified 01/08/25 08:32) [facility] Adverse Reaction (Intermediate, Verified 01/08/25 08:32) pancreatitis pioglitazone Adverse Reaction (Intermediate, Verified 01/08/25 08:32) Swelling HPI HPI T2DM: Details: Patient is a 53-year-old female with a significant past medical history of hypertension, hyperlipidemia, type 2 diabetes, peripheral vascular disease, diabetic nephropathy, and goiter presenting today for follow-up regarding her diabetes. Building Maintenance Mechanic: Zeny Endo: DM-Last A1c was 7.4. She is currently on Jardiance 25 mg, metformin 500 mg daily, Tresiba 24 units at bedtime. Previous Meds: does not tolerate higher doses of metformin. pancreatitis while on trulicity. lantus caused swelling and join paints. Actos caused swelling CGM- average glucose 126. 0% very hyperglycemic, 7% hyperglycemic, 93% in range, 0% hypoglycemic. -She was having some lows with the higher dose of 30 units. Not finger sticking blood sugars Denies any symptoms of hypoglycemic events. States that she has felt low in the past and her symptoms include. She corrects hypoglycemia with glucose tabs or orange juice if needed. She does admit to not doing as much exercise or eating as healthy as she was previously doing. on statin and arb neurpoathy-intermittently gets tingling but no loss of sensation or weakness. No pain . nephropathy- last urine 2022 shows microalbuminuria, does not see nephrolology, on arb. CV: bp today in the office is 138/98. She is currently on losartan 100 mg daily, atenolol 100 mg daily, amlodipine 10 mg. She states her blood pressure blood pressures is elevated because she never take medications prior to appointment days. States that normally her blood pressures are WNL at home. She is on atorvastatin 10 mg nightly [facility] Medical History Obesity Hypoxemia Witnessed apneic spells Eczema Hordeolum externum left eye, unspecified eyelid Obesity Headache History of acute respiratory distress syndrome (ARDS) Persistent insomnia Respiratory failure with hypoxia Pneumonia due to severe acute respiratory syndrome coronavirus 2 (SARS-CoV-2) COVID-19 virus infection Cavitary lesion of lung Obesity (BMI 30-39.9) Anxiety and depression Hypersomnia Acute neck sprain Post covid-19 condition, unspecified Restrictive lung disease Lower extremity edema Pneumonia COVID-19 virus infection Diabetic nephropathy associated with type 2 diabetes mellitus Diabetic neuropathy associated with type 2 diabetes mellitus Acute meniscal tear of right knee Right thyroid nodule Psoriasis Hypertension Type 2 diabetes mellitus with hyperglycemia Hypercholesterolemia Osteoarthritis Insomnia GERD (gastroesophageal reflux disease) Diabetic nephropathy Bilateral carpal tunnel syndrome Surgical History History of D&C History of cholecystectomy History of section History of tubal ligation Family History Father Medical history unknown Mother Diabetes Hypertension Maternal Grandmother Pancreatic cancer Maternal Aunt Breast cancer Sister Breast cancer Social History Household Members: Family Housing: Apartment Are you a primary toddler caregiver to a significant other at home: No Do you presently have visiting nurse or other home services: No Alcohol intake: never Patient Tobacco Use Status: Never used Tobacco Tobacco use type: Cigarette e-Cigarette/Vaping Use: Never Used Second Hand Smoke Exposure: Yes service: No Current occupational status: disabled Cognitive needs: No Hearing needs: No Vision needs: No Physical Exam Vital Signs: Last Vital Signs BP 138/98 H 01/08/25 08:26 BMI result Body Mass Index 39.6 Const Orientation/consciousness: patient oriented x3 HEENT Ears: hearing grossly normal bilaterally Neck Thyroid: Thyroid normal Lymphatic: no lymphadenopathy noted Resp Auscultation: clear to auscultation bilaterally Cardio Rate: regular rate Rhythm: regular rhythm Heart sounds: S1 normal heart sound present and S2 normal heart sound present Skin General skin exam: no rashes or lesions noted Neuro General: patient oriented x3, gait normal and no focal motor deficits Results Reviewed Results Reviewed: Laboratory Tests 08/31/24 12/04/24 01/07/25 09:00 09:12 11:40 Creatinine 1.29 Estimated GFR 43 Random Glucose 115 Hgb A1c (Clinic) 7.4 H AST 19 ALT 27 Triglycerides 164 H Cholesterol 171 LDL Cholesterol, Calc 95 HDL Cholesterol 44 Assessment & Plan Assessment & Plan (1) Type 2 diabetes mellitus with hyperglycemia: Code(s): E11.65 - Type 2 diabetes mellitus with hyperglycemia Category: Medical Qualifiers: Diabetes mellitus 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 She is asymptomatic. Coding Level of Care Code Est Pt Level 4 (65912) Complex EM visit Add On G2211 Diagnoses Type 2 diabetes mellitus with hyperglycemia, with long-term current use of insulin E11.65; Z79.4 Diabetes mellitus senior care insulin use: with senior care use Primary hypertension I10 Hypertension type: primary hypertension
--- OUTSIDE RECORDS SUMMARY | 2025-01-08 08:28 | XMS_ITS | Data Portability ---
Author Organization [employer], 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 No F/C, numbness, weakness, changes in speech or vision, headaches. VS w elevated BP but otherwise wnl. Exam notable for limited ROM neck due to pain. Likely muscular strain/spasm. Per patient's [employer] portal, Cr 1.1. Okay to give IM toradol 15mg x 1. Can use tylenol PRN pain + heating pads. [email or web address] Not available 11/28/2024 16:03:32 Plan of Treatment Reminders Order Date Submit Date Provider Last Modified By Organization Details Last Modified Time Details Appointments None recorded. Lab None recorded. Referral None recorded. Procedures None recorded. Surgeries None recorded. Imaging None recorded. Medication Orders ketorolac 30 mg/mL injection solution 2024 025 [email or web address] [facility]/Pharmacy #[id number], [address] [facility], [place], [address], 16:01:46 Patient TargetsNo targets recorded. Patient InstructionsNo instructions recorded. Reason for Referral None Reported. Medical Equipment None Reported. Allergies Allergen ID Allergen Name Allergen Category Reaction Reaction Severity Criticality Documentation Date Start Date Code Code System Note Provider Name and Address Organization Details Recorded Time 67310 lisinopri l medicatio n Not available Not available Not available 11/28/2024 99891 RxNorm Not Available [facility] - production 15:05:54 Medications Name Sig Start Date Stop Date Status Note LastModified by Organization Details LastModified Time cyclobenzapr ine 10 mg tablet TOME DILMA TABLETA TODOS LOS D AL ACOSTARSE active Not Available Not Available No t Available prednisone 10 mg tablet TAKE 1 TABLET BY MOUTH DAILY FOR ILD FOR 30 DAYS active Not Available Not Available No t Available ketoconazole 2 % shampoo APPLY 1 APPLICATION TOPICALLY 2 TIMES A WEEK active Not Available Not Available No t Available atorvastatin 10 mg tablet TOME DILMA TABLETA POR V A ORAL EVERY EVENING active Not Available Not Available No t Available meloxicam 15 mg tablet TOME DILMA TABLETA TODOS LOS D active Not Available Not Available No t Available prednisone 5 mg tablet TOME DILMA TABLETA POR V A ORAL EVERY OTHER DAY active Not Available Not Available No t Available clonazepam 1 mg tablet TOME DILMA TABLETA DOS VECES AL D A active Not Available Not Available No t Available fexofenadine 180 mg tablet TOME DILMA TABLETA TODOS LOS D active Not Available Not Available No t Available amlodipine 5 mg tablet TAKE 1 TABLET BY MOUTH DAILY active Not Available Not Available Not Available divalproex 500 mg tablet,delay ed release TOME DILMA TABLETA DOS VECES AL D A active Not Available Not Available No t Available quetiapine 100 mg tablet TOME DILMA TABLETA TODOS LOS D AL ACOSTARSE active Not Available Not Available No t Available amlodipine 10 mg tablet TOME DILMA TABLETA TODOS LOS D active Not Available Not Available No t Available olopatadine 0.1 % eye drops 1 DRP INTO THE EYE(S) 2 TIMES A DAY SEPARATE DOSES BY AT LEAST 6-8 HOURS active Not Available Not Available No t Available ibuprofen 600 mg tablet TOME DILMA TABLETA CADA OCHO HORAS CUANDO SEA NECESARIO PARA EL DOLOR active Not Available Not Available No t Available calcipotrien e 0.005 % scalp solution APPLY TO THE AFFECTED AREAS ON THE ARMS AND BACK OF THE EARS TWICE DAILY NEEDED FOR FLARES active Not Available Not Available N ot Available betamethason e dipropionate 0.05 % topical ointment PLEASE SEE ATTACHED FOR DETAILED DIRECTIONS active Not Available Not Available N ot Available losartan 100 mg tablet TOME DILMA TABLETA POR V A ORAL A DIARIO active Not Available Not Available No t Available fluticasone propionate 50 mcg/actuatio n nasal spray,suspen marta 2 SPRAY INTRANASALL Y DAILY FOR 90 DAYS active Not Available Not Available No t Available betamethason e dipropionate 0.05 % lotion APPLY TO AFFECTED AREAS ON ARMS & BACK OF EARS 2X DAILY X2 WKS ON,BREAK 1 WK REPEAT NEEDED FLARES active Not Available Not Available No t Available atenolol 50 mg tablet TAKE 1 TABLET ORALLY DAILY active Not Available Not Available No t Available ipratropium bromide 0.02 % solution for inhalation 2.5 ML INHALED EVERY 6 HOURS NEEDED FOR SHORTNESS OF BREATH OR WHEEZING FOR 30 DAYS active Not Available Not Available Not Available amoxicillin 500 mg-potassium clavulanate 125 mg tablet TOME DILMA TABLETA DOS VECES AL D A active Not Available Not Available No t Available calcipotrien e 0.005 % topical ointment APPLY TO THE AFFECTED AREAS ON THE ARMS AND BACK OF THE EARS TWICE DAILY NEEDED FOR FLARES active Not Available Not Available N ot Available neomycin 3.5 mg/g-polymyx in B 10,000 unit/g-dexam eth 0.1 % eye oint APPLY 1/4 INCH STRIP TO LEFT EYE THREE TO FOUR TIMES A DAY active Not Available Not Available No t Available escitalopram 20 mg tablet TOME DILMA TABLETA POR V A ORAL DAILY IN THE MORNING active Not Available Not Available Not Available Pain Relief Extra Strength (acetaminoph en) 500 mg tablet TOME DOS TABLETAS POR V A ORAL CADA SEIS HORAS CUANDO SEA NECESARIO PARA EL DOLOR active Not Available Not Available No t Available hydrochlorot hiazide 12.5 mg tablet TOME DILMA TABLETA POR V A ORAL A DIARIO active Not Available Not Available No t Available FreeStyle Lite Strips DIRECTED TESTS 4X/DAY active Not Available Not Available No t Available Lantus Solostar U-100 Insulin 100 unit/mL (3 mL) subcutaneous pen INJECT 12 UNITS POR V A SUBCUT RADHA CADA NOCHE active Not Available Not Available No t Available Vitamin D3 50 mcg (2,000 unit) tablet TOME DILMA TABLETA TODOS LOS D active Not Available Not Available No t Available Otezla 30 mg tablet active Not Available Not Available Not Available Breo Ellipta 200 mcg-25 mcg/dose powder for inhalation INHALE UN SOPLIDO A DIARIO active Not Available Not Available No t Available Synjardy 12.5 mg-1,000 mg tablet TOME DILMA TABLETA DOS VECES AL D A active Not Available Not Available No t Available Tresiba FlexTouch U-100 insulin 100 unit/mL (3 mL) subcutaneous pen 22 UNIT (0.22 ML) SUBCUTANEOU SLY BEDTIME active Not Available Not Available Not Available BD Patti 2nd Gen Pen Needle 32 gauge x /32 USE SEG N LO INDICADO DIRECTED INJECT ONCE A DAY active Not Available Not Available No t Available FreeStyle Jared 2 Sensor kit DIRECTED CHANGE EVERY 14 DAYS active Not Available Not Available No t Available FreeStyle Jared 2 [place] DIRECTED active Not Available Not Available Not Available BinaxNOW COVID-19 Ag Self Test kit USE DIRECTED ON PACKAGING active Not Available Not Available No t Available Vitals Date Recorded Oxygen saturation Oxygen saturation in Arterial blood by Pulse oximetry Body temperature Respiratory rate Heart rate Systolic And Diastolic Provider Name and Address Organization Details Last Updated DateTime 5 95 % 95 % 98.2 [degF] 18 /min 77 /min 162/100 mm[Hg] Not Available [facility] - production 5 15:57:50 Social History None recorded. Functional Status None recorded. Mental Status None recorded. Family History Nothing Reported. Medical History No medical history recorded. Gynecological HistoryNo gynecological history recorded. Obstetrics History GPAL:G 0 P 0 0 0 0 Past Encounters Encounter ID Performer Location Encounter Start Date Encounter Closed Date Diagnosis/Indication Diagnosis SNOMED-CT Code Diagnosis ICD10 Code Diagnosis IMO Codes Diagnosis Note [id number] ANA TUBBS MD [facility] [address] [place] [address] 11/28/2024 15:57:47 11/30/2024 23:48:08 Strain of right trapezius muscle [id number] S46.811A [id number] Health Concerns Section Related Observation LastModified by Organization Detai ls LastModified Time None Recorded Concern Status LastModified by Organization Details LastModified Time None Recorded Advance Directives Directive None Recorded Payers Insurance Date Sequence Insurance Name Policy Number Policy Osei Covered Member ID Osei Member ID Guarantor Name 05/14/2023 1 [facility] - DOS PRIOR TO 2022 - DUAL ELIGIBLE (MEDICARE REPLACEMENT/ADV ANTAGE - HMO) Nina Coats [id number] Nina Coats 11/28/2024 1 [facility] - DOS ON OR AFTER 2022 - DUAL ELIGIBLE - HALF-WAY OPTIONS AND ONE CARE (MEDICARE REPLACEMENT/ADV ANTAGE - HMO) Nina Coats [id number] Nina Coats Notes Date Note Type Note Provider Name and Address Organization Details Recorded Time 11/28/2024 text/html CRC Nurse Triage Notes (Ashley Burgos): Reason For Request: Patient has strong pain on her right shoulder to her head area Patient Reports: Head pain not relieved by medication greater than 8 hours; Head pain greater than 8 hours -unrelated to falls or injury Denies: Worst Headache of life New onset of vision loss Sudden onset -unilateral weakness/gait disturbance Fall with head strike and altered LOC New onset of Slurred speech or difficulty finding words Sudden Mental status changes Head pain with fever chills and neck pain Seizure activity Chief Complaints: Extremity Pain PMH: Diabetes Mellitus Type 2, Hypertension PMH Reviewed at 11/28/2024 - 15:05 Allergies Reviewed at 11/28/2024 - : Comments: Member calling in with educational interpreter complaining of pain on the right side of her shoulder and when she moves her arm pain radiates up her neck to her head. Pain started yesterday- and attempted to call [facility] yesterday. The pain is a little worse today. Took Tylenol yesterday but it did not help the pain at all. Nothing is helping the pain- it feels worse when member lays down. Pt denies any injury prior to pain. Denies shortness of breath and chest pain. 54 y.o female complains of Extremity Pain I provided information on the mobile health provider response time and advised the patient and/or caregiver to monitor reported signs and symptoms. I discussed the warning signs of when to seek emergency care. Diana Burgos RN ................... ................... ................... ................... ................... ................... ................... ........ 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 Patient reports on 11/27/24 while attempting to lay down for a nap, she developed right sided neck and trapezius muscle pain. Patient denies any traumas or falls associated with the pain and recalls the moment of onset. Patient denies chest pain, shortness of breath, fevers and acute changes in vision. Skin warm, dry and of appropriate color for ethnicity. Head and neck free of trauma and edema.-JVD. Breath sounds present, clear and equal bilaterally. Abdomen is soft, non-tender and non-distended. Extremities are free of trauma and edema. [facility] contacted: patient presents recent bloodwork (11/20/24) exhibiting kidney function, values were relayed to [facility]. 15mg IM Toradol administered after medication r ights were reconciled with patient. Patient was encouraged to monitor herself for chest pain, shortness of breath, stroke symptoms or worsening pain and was encouraged to seek further medical attention, including 911, if said symptoms were to develop. Patient verbalizes understanding of the plan and states she is comfortable remaining home today. [facility] Medication Orders: ketorolac 30 mg/mL injection solution: Administered ................... ................... ................... ................... ................... ................... ................... ........ [facility] Consulted: Ana Tubbs ................... ................... ................... ................... ................... ................... ................... ........ Disposition: Fulfilled ANA TUBBS MD [address] [place] [address],[address], [place], [phone], MOISES GIL IYER 11/28/2024 16:41:38 OBGyn Episode No OBEpisode recorded.
[2025-01-08 08:38] LABS: Glucose, Whole Blood 119 mg/dL (60-115)
== END 2025-01-08 08:46 | disposition home or self-care (01) ==
LOC: HO.ENCR 08:21
PROVIDERS: PCP Internal Medicine; Visit Provider Physician Assistant
DX: E11.65 Type 2 diabetes mellitus with hyperglycemia (principal); Z79.4 Long term (current) use of insulin; I10 Essential (primary) hypertension

== ENCOUNTER → 2025-01-08 08:20 | Outpatient (BNVA) | payer OTHER, SELFPAY | PROVIDERS: PCP Internal Medicine; Visit Provider Physician Assistant | DX: E11.65 Type 2 diabetes mellitus with hyperglycemia (principal); I10 Essential (primary) hypertension; Z79.899 Other long term (current) drug therapy | CPT/HCPCS: 82947; 99212 ==

== ENCOUNTER 2025-01-15 08:36 | Outpatient (AMB) | payer OTHER, SELFPAY ==
[2025-01-15 08:51] VITALS: BP 140/94; PULSE 74; TEMP 36.3; O2SAT 95; BMI 39.3
--- NOTE | 2025-01-15 08:51 | MHC.PC.OV ---
Vital Signs 01/15/25 08:51 Height 5 ft 3 in Weight 222 lb 2 oz BMI 39.3 BP 140/94 H Blood Pressure Location Lt brachial Position Sitting Pulse 74 Pulse Source Pulse Oximeter Temp 97.3 F Temp Source Temporal Artery Scan Pulse Oximetry (%) 95 Oxygen Delivery Method Room Air Intake Visit Reasons: HTN, DM Cosmetologist Apprentice Required: Yes Cosmetologist Apprentice Language: Syriac Allergies egg Allergy (Severe, Verified 01/15/25 08:51) throat swells up milk Allergy (Severe, Verified 01/15/25 08:51) throat swells up avocado Allergy (Intermediate, Verified 01/15/25 08:51) lip swelling lisinopril Allergy (Unknown, Verified 01/15/25 08:51) Unknown dulaglutide (From [facility]) Adverse Reaction (Intermediate, Verified 01/15/25 08:51) pancreatitis pioglitazone Adverse Reaction (Intermediate, Verified 01/15/25 08:51) Swelling Medication List - Last Reconciled 01/15/25 by Cally Rizvi MD albuterol sulfate 90 mcg/actuation (Ventolin HFA) 4 puffs inhalation Q3H PRN alcohol swabs (Alcohol Wipes) 1 pad topical .QD amlodipine 10 mg PO DAILY apremilast (Otezla) 30 mg PO BID atenolol 100 mg PO DAILY atorvastatin 10 mg PO QPM azelastine 2 sprays intranasal Q12H blood pressure monitor (Blood Pressure Kit) As directed blood sugar diagnostic (FreeStyle Lite Strips) DIRECTED TESTS 4X/DAY blood-glucose meter (FreeStyle [place] Lite kit) As directed blood-glucose sensor (FreeStyle Jared 3 Plus Sensor device) Use daily As directed to monitor glucose blood-glucose,banking services clerk,cont (FreeStyle Jared 3 [place]) Use daily As directed to monitor blood glucose Breo Ellipta 200-25 mcg/dose (fluticasone furoate-vilanterol) 1 inh inhalation DAILY NS calcipotriene 0.005% 0.005 appl topical BID PRN cholecalciferol (vitamin D3) (Vitamin D3) 50 mcg PO DAILY clonazepam 1 mg PO BID PRN compress.stocking,knee,reg,lrg As directed 20-30 mm HG diclofenac sodium 1% (Voltaren Arthritis Pain) 4 grams topical QID disposable gloves As directed divalproex 500 mg PO BID empagliflozin (Jardiance) 25 mg PO DAILY escitalopram oxalate 20 mg PO DAILY fluticasone propionate 50 mcg/actuation (Flonase Allergy Relief) 2 sprays intranasal DAILY [HUMIDIFIER As directed] [incontinence wipes As directed] ipratropium bromide 2.5 mL inhalation Q6H PRN 30 days lancets (FreeStyle Lancets) As directed lancets (FreeStyle Lancets) use daily as directed to check blood glucose levocetirizine (Xyzal) 5 mg PO DAILY losartan 100 mg PO DAILY metformin 500 mg PO DAILY nebulizers (Aeroneb Go Nebulizer) As directed olopatadine 0.1% 1 drp ophthalmic (eye) BID Oxygen Home Use As directed pen needle, diabetic USE PARMINDER LO INDICADO DIRECTED INJECT ONCE A DAY quetiapine 100 mg PO BEDTIME [sanitary pads As directed] sumatriptan succinate (Imitrex) 50 mg PO .QD PRN Tresiba FlexTouch U-100 (insulin degludec) 30 units (0.3 mL) subcut BEDTIME NS Tobacco use date assessed: 01/15/25 Dental Screening Dental Screen Date: 01/15/25 Did you have a dental visit in the last 12 months?: Yes Did you have a dental problem in the last 6 months where you did not have access to dental care?: No Was dental information given to patient?: Patient has dentist [facility] Medical History Obesity Hypoxemia Witnessed apneic spells Eczema Hordeolum externum left eye, unspecified eyelid Obesity Headache History of acute respiratory distress syndrome (ARDS) Persistent insomnia Respiratory failure with hypoxia Pneumonia due to severe acute respiratory syndrome coronavirus 2 (SARS-CoV-2) COVID-19 virus infection Cavitary lesion of lung Obesity (BMI 30-39.9) Anxiety and depression Hypersomnia Acute neck sprain Post covid-19 condition, unspecified Restrictive lung disease Lower extremity edema Pneumonia COVID-19 virus infection Diabetic nephropathy associated with type 2 diabetes mellitus Diabetic neuropathy associated with type 2 diabetes mellitus Acute meniscal tear of right knee Right thyroid nodule Psoriasis Hypertension Type 2 diabetes mellitus with hyperglycemia Hypercholesterolemia Osteoarthritis Insomnia GERD (gastroesophageal reflux disease) Diabetic nephropathy Bilateral carpal tunnel syndrome Surgical History History of D&C History of cholecystectomy History of section History of tubal ligation Family History Father Medical history unknown Mother Diabetes Hypertension Maternal Grandmother Pancreatic cancer Maternal Aunt Breast cancer Sister Breast cancer Social History Household Members: Family Housing: Apartment Are you a primary geriatric personal care aide to a significant other at home: No Do you presently have visiting nurse or other home services: No Alcohol intake: never Patient Tobacco Use Status: Never used Tobacco Tobacco use type: Cigarette e-Cigarette/Vaping Use: Never Used Second Hand Smoke Exposure: Yes service: No Current occupational status: disabled Cognitive needs: No Hearing needs: No Vision needs: No Questionnaire PHQ-9 Over the last 2 weeks, how often have you been bothered by any of the following problems? 1. Little interest or pleasure in doing things: not at all 2. Feeling down, depressed, or hopeless: more than half the days 3. Trouble falling or staying asleep, or sleeping too much: nearly every day 4. Feeling tired or having little energy: nearly every day 5. Poor appetite or overeating: more than half the days 6. Feeling bad about yourself - or that you are a failure or have let yourself or your family down: more than half the days 7. Trouble concentrating on things, such as reading the newspaper or watching television: more than half the days 8. Moving or speaking so slowly that other people could have noticed. Or the opposite - being so fidgety or restless that you have been moving around a lot more than usual: several days 9. Thoughts that you would be better off or of hurting yourself in some way: several days Total score: 16 Source: Developed by Drs. Delvin Head, Ashley Rahman, Vinod Manzanares and colleagues, with an educational jo-ann from [employer]. Thrive Questionnaire Date Thrive assessed: 09/25/24 I am a: Patient What is your living situation today?: I have a steady place to live Within the past 12 months, did the food you bought not last and you didn't have the money to get more?: Never true Within the past 12 months, did you worry whether your food would run out before you got money to buy more?: Never true Do you have trouble paying for medicines?: No Do you have trouble getting transportation to medical appointments?: No Do you have trouble paying your heating and electricity bill?: No Do you have trouble taking care of your child, family member or friend?: No Do you have trouble with day-to-day activities such as bathing, preparing meals, shopping, managing finances, etc.?: Yes Are you currently unemployed and looking for a job?: No Are you interested in more education?: No Please select the resources that you would like help with: None Currently or been in a relationship where the following occur: No concerns reported THRIVE Score: 0 AUDIT C Alcohol Use Questionnaire (AUDIT-C) 1. How often do you have a drink containing alcohol?: Never 3. How often do you have six or more drinks on one occasion?: Never Total Score: 0 NANCY-7 AMB Questionnaire NANCY-7 Date NANCY - 7 assessed: 06/08/24 Feeling nervous, anxious, or on edge: 0 = Not at all Not being able to stop or control worryin = Not at all Worrying too much about different things: 0 = Not at all Trouble relaxin = Not at all Being so restless that it is hard to sit still: 0 = Not at all Becoming easily annoyed or irritable: 0 = Not at all Feeling afraid as if something awful might happen: 0 = Not at all Total NANCY-7 score (0-4 normal; 5-9 mild; 10-14 moderate; 15-21 severe): 0 Source: Developed by Drs. Delvin Head, Ashley Rahman, Vinod Manzanares and colleagues, with an educational jo-ann from [employer]. Physical exam (Primary Care) Vital Signs: Last Vital Signs Temp 97.3 F 01/15/25 08:51 Pulse 74 01/15/25 08:51 BP 140/94 H 01/15/25 08:51 Pulse Ox 95 01/15/25 08:51 Oxygen Delivery Method Room Air 01/15/25 08:51 BMI result Body Mass Index 39.3 Tobacco/Smoking Status: Tobacco use Status Tobacco use date assessed 01/15/25 01/15/25 08:55 Patient Tobacco Use Status Never used Tobacco 01/15/25 08:55 Tobacco use type Cigarette 01/15/25 08:55 e-Cigarette/Vaping Use Never Used 01/15/25 08:55 PHQ-9: PHQ-9 Score PHQ-9: Total score 16 01/15/25 09:37 Thrive Assessment: Date of Thrive Assessment Date Thrive assessed 09/25/24 01/15/25 08:55 Currently or been in a relationship where the following occur: No concerns reported Const General: alert; No acute distress Eyes Conjunctivae: conjunctivae normal Resp Auscultation: clear to auscultation bilaterally Cardio Rate: regular rate Rhythm: regular rhythm GI Inspection: Yes normal to inspection Extrem General: Yes normal to inspection and No edema Coding Level of Care Code Est Pt Level 4 (65592) Complex EM visit Add On G2211 Diagnoses Type 2 diabetes mellitus with hyperglycemia, with long-term current use of insulin E11.65; Z79.4 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 mellitus search engine marketing 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 insulin use: with mcfp use Primary hypertension I10 Hypertension type: primary hypertension Hypercholesterolemia E78.00 Generalized anxiety disorder F41.1 Gastroesophageal reflux disease without esophagitis K21.9 Esophagitis presence: without esophagitis 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 COPD (chronic obstructive pulmonary disease) J44.9 Assessment & Plan Assessment & Plan (1) Type 2 diabetes mellitus with hyperglycemia: Code(s): E11.65 - Type 2 diabetes mellitus with hyperglycemia Category: Medical Qualifiers: Diabetes mellitus search engine marketing specialist insulin use: with mcfp use Qualified Code(s): E11.65 - Type 2 diabetes mellitus with hyperglycemia; Z79.4 - first press operator (current) use of insulin Plan: Decrease the amount of carbohydrate intake, pasta, bread, rice and potatoes are all sugar and that is aside from all the sweet stuff, remember that fruits are good but they are Sweet also. Patient follows up with endocrinology last hemoglobin A1c in November was 7.4. Patient is on Jardiance 25 mg once a day metformin 500 mg once a day Tresiba 30 units once a day (2) Hypertension: Code(s): I10 - Essential (primary) hypertension Category: Medical Qualifiers: Hypertension type: primary hypertension Qualified Code(s): I10 - Essential (primary) hypertension Plan: Continue with blood pressure medication. Decrease salt intake and exercise patient is on losartan 100 mg once a day atenolol 100 mg once a day and amlodipine 10 mg once a day (3) Hypercholesterolemia: Code(s): E78.00 - Pure hypercholesterolemia, unspecified Category: Medical Plan: Avoid fried foods, chicken skin, eggs, butter margarine, pastries and meat. Be it pork or beef they have a lot of cholesterol atorvastatin 10 mg at bedtime August 2024 last blood work 94 (4) Generalized anxiety disorder: Code(s): F41.1 - Generalized anxiety disorder Category: Medical Plan: Continue with present therapy (5) GERD (gastroesophageal reflux disease): Code(s): K21.9 - Gastro-esophageal reflux disease without esophagitis Category: Medical Qualifiers: Esophagitis presence: without esophagitis Qualified Code(s): K21.9 - Gastro-esophageal reflux disease without esophagitis Plan: Avoid the foods that causes that usually spicy foods, tomato products, juices, coffee, soda and foods that your sensitive to. After eating do not lie down, allow 3-4 hours before in lie down. And keep the head of bed above 30 degrees to avoid the acid from going up. (6) Lesion of spleen: Code(s): D73.89 - Other diseases of spleen Category: Medical Plan: Patient has seen hematology oncology and workup presently. (7) COPD (chronic obstructive pulmonary disease): Comment: SHE HAS CLINICAL FEATURES OF CHRONIC OBSTRUCTIVE AIRWAY DISORDER. THOUGH IT DID NOT SHOW UP ON THE PULMONARY FUNCTION TEST. Code(s): J44.9 - Chronic obstructive pulmonary disease, unspecified Category: Medical Plan: Patient follows up with Pulmonary results showing restrictive lung disease due to COVID and obesity. Continuing on Breo and albuterol inhaler Plan History of Present Illness The patient is a 54-year-old obese female presenting for a follow-up visit for multiple chronic conditions including GERD, diabetes mellitus, peripheral vascular disease, generalized anxiety disorder, hypertension, hypercholesterolemia, and COPD. She was last seen in October 2024. For her diabetes, the patient follows with endocrinology and uses a continuous glucose monitor. Her last hemoglobin A1c was 7.4% in November. She is prescribed Jardiance, metformin, and Tresiba. The patient is seeing hematology-oncology for a splenic lesion, for which she is currently undergoing a workup and may require a splenic biopsy. Her pulmonary history includes restrictive lung disease, which is a residual from COVID and also related to obesity, for which she follows with pulmonology. She is on oxygen, has a cough, and uses a daily Breo inhaler. For hypertension, the patient is on losartan, atenolol, and amlodipine. She reports not taking her medications on the morning of appointments. Recently, the patient had a fall at home after her knee gave way and was subsequently diagnosed with arthritis at an urgent care visit where an X-ray was performed. She was told she might need a knee replacement. Recent blood work from January 07 revealed a normal blood count with no anemia, normal electrolytes, a stable creatinine of 1.29, and a blood sugar of 119. Her last LDL cholesterol was 95 in August 2024. Health Maintenance The patient is due for a mammogram and colonoscopy. Advised diet and exercise for weight management. Follow-up is scheduled in 3 months to re-evaluate blood pressure control. Social History - Patient has obesity. - Medication non-adherence: The patient is non-compliant with her blood pressure medication regimen, skipping morning doses on days she has appointments. - Stress: The patient reports feeling stressed and anxious about the potential need for a splenic biopsy, which she believes is causing her blood pressure to be high. Review of Systems - Constitutional: Reports stress and anxiety. - Respiratory: Reports a cough. - Cardiovascular: Denies chest pain. - Gastrointestinal: Denies constipation and diarrhea. - Genitourinary: Denies urinary problems. - Musculoskeletal: Reports generalized body and joint pain. - Neurological: Reports a recent fall after her knee gave way. Physical Exam - Vitals: Blood pressure 160/x mmHg, noted to be high. - Lungs: Lungs were auscultated. Results - Labs (January 07): Blood count normal, no anemia, electrolytes normal, creatinine 1.29 (stable), blood sugar 119. - Labs (December 04): Hemoglobin A1c 7.4%. - Labs (August 2024): LDL 94-95. - Pulmonary: Results from a November visit with pulmonology showed restrictive lung disease. Plan Patient was informed and verbally consented to the use of an ambient scribe for clinic note documentation during this visit. 1. Diabetes Mellitus The patient follows up with endocrinology for diabetes management. Her last hemoglobin A1c in November was 7.4%, which is above the goal of less than 6.5%. Will continue current medication regimen of Jardiance 25 mg once a day, metformin 500 mg once a day, and Tresiba 30 units once a day. No new prescriptions were requested or provided at this visit. 2. Hypertension The patient's blood pressure is currently elevated at 160/x mmHg. She admits to non-adherence, frequently skipping her morning medications on appointment days. The patient was extensively counseled on the critical importance of medication adherence to lower her blood pressure and reduce her risk of stroke. She was advised to take her medications consistently at the same time each day and was given the option to switch to taking them at night to improve compliance. Continue current regimen of losartan 100 mg once a day, atenolol 100 mg once a day, and amlodipine 10 mg once a day. 3. Splenic Lesion The patient is being followed by hematology-oncology for a splenic lesion. A workup is currently in progress, and she was informed that a splenic biopsy may be necessary to determine the nature of the lesion. Acknowledged patient's anxiety regarding the potential biopsy. 4. Restrictive Lung Disease And Copd The patient follows with pulmonary for restrictive lung disease secondary to a prior COVID infection and obesity. She will continue treatment with her Breo and albuterol inhalers. The patient was reminded to rinse her mouth after using her Breo inhaler. 5. Hypercholesterolemia The patient's last LDL was 94 in August 2024. She will continue with her present therapy of atorvastatin 10 mg at bedtime. No new blood work is needed at this time. 6. Knee Arthritis The patient has a new diagnosis of arthritis following a fall and an urgent care visit. She has an upcoming appointment with rheumatology for further evaluation of generalized body pain. The patient was counseled that weight loss is important for managing her arthritis. Discussion Notes I discussed the ongoing hematology-oncology workup for her splenic lesion and explained that a biopsy might be necessary, and I acknowledged the stress this is causing her. We reviewed her elevated HbA1c of 7.4% and confirmed she would continue her current diabetes regimen as managed by her marine structural designer. I addressed her elevated blood pressure of 160/x mmHg, and we had an extensive conversation regarding her non-adherence to her medication. I strongly emphasized the critical need to take her blood pressure medication daily and consistently to prevent a stroke, offering the option to take them at night to improve compliance. We also discussed her recent fall and new diagnosis of knee arthritis, along with her upcoming rheumatology appointment. I highlighted the importance of weight loss for her joint health and overall condition. I confirmed she does not need new prescriptions or blood work today and that we will follow up in 3 months to check on her blood pressure. Patient Instructions - It is very important to take your blood pressure medicine every single day without missing doses to prevent a stroke. - If taking your medications in the morning is hard, you can take them all at lunchtime or at night, but you must take them at the same time each day. - Continue all your current medications for diabetes, cholesterol, and breathing as prescribed. - Make sure to rinse your mouth with water after using your Breo inhaler. - Please schedule your mammogram and colonoscopy, as they are now due. - Continue to follow up with the blood doctor (hematology) for the spot on your spleen. - Keep your upcoming appointments with the joint doctor (rheumatology) and the kidney doctor (nephrology). - Work on diet and exercise to help with weight loss, which will improve your overall health. - We will see you back in the office in 3 months.
--- OUTSIDE RECORDS SUMMARY | 2025-01-15 09:10 | XMS_ITS | Data Portability ---
Author Organization [facility], [facility] Address [address] [place] [id number] Care Team Providers Care Journeyman Powerhouse Operator Name Role Phone HIM CCA OTHER [...] to pain. Likely muscular strain/spasm. Per patient's [employer] portal, Cr 1.1. Okay to give IM toradol 15mg x 1. Can use tylenol PRN pain + heating pads. [email or web address] Not available 11/28/2024 16:03:32 Plan of Treatment Reminders Order Date Submit Date Provider Last Modified By Organization Details Last Modified Time Details Appointments None recorded. Lab None recorded. Referral None recorded. Procedures None recorded. Surgeries None recorded. Imaging None recorded. Medication Orders ketorolac 30 mg/mL injection solution [id number] [facility]/Pharmacy #[id number], [address] [facility], [place], [address], 16:01:46 Patient TargetsNo targets recorded. Patient InstructionsNo instructions recorded. Reason for Referral None Reported. Medical Equipment None Reported. Allergies Allergen ID Allergen Name Allergen Category Reaction Reaction Severity Criticality Documentation Date Start Date Code Code System Note Provider Name and Address Organization Details Recorded Time 71514 lisinopri l medicatio n Not available Not available Not available 11/28/2024 20060 RxNorm Not Available [facility] - production 15:05:54 [...] Available No t Available FreeStyle Jared 2 [place] DIRECTED active Not Available Not Available [...] ICD10 Code Diagnosis IMO Codes Diagnosis Note [id number] ANA TUBBS MD [facility] [address] [place] [phone] 11/28/2024 15:57:47 11/30/2024 23:48:08 Strain of right trapezius muscle [id number] S46.811A [id number] Health Concerns Section Related Observation LastModified by Organization Detai ls LastModified Time None Recorded Concern Status LastModified by Organization Details LastModified Time None Recorded Advance Directives Directive None Recorded Payers Insurance Date Sequence Insurance Name Policy Number Policy Osei Covered Member ID Osei Member ID Guarantor Name 05/14/2023 1 [facility] - DOS PRIOR TO 2022 - DUAL ELIGIBLE (MEDICARE REPLACEMENT/ADV ANTAGE - HMO) Nina Coats [id number] Nina Coats 11/28/2024 1 [facility] - DOS ON OR AFTER 2022 - DUAL ELIGIBLE - JAIL OPTIONS AND ONE CARE (MEDICARE REPLACEMENT/ADV ANTAGE - HMO) Nina Coats [id number] Nina Coats Notes Date Note Type Note [...] - : Comments: Member calling in with security representative complaining of pain on the right side [...] ................... ................... ................... ................... ................... ................... ........ Kettle Cleaner Note From Chino Ramirez: Encountered patient conscious [...] Extremities are free of trauma and edema. [facility] [place]: patient presents recent bloodwork (11/20/24) exhibiting kidney function, values were relayed to [facility] 15mg IM Toradol administered after medication r ights were reconciled with patient. Patient was encouraged to monitor herself for chest pain, shortness of breath, stroke symptoms or worsening pain and was encouraged to seek further medical attention, including 911, if said symptoms were to develop. Patient verbalizes understanding of the plan and states she is comfortable remaining home today. [facility] Medication Orders: ketorolac 30 mg/mL injection solution: Administered ................... ................... ................... ................... ................... ................... ................... ........ [facility] Consulted: Ana Tubbs ................... ................... ................... ................... ................... ................... ................... ........ Disposition: Fulfilled ANA TUBBS MD [address] [place] [address],[address], [place], [phone], MOISES GIL IYER 11/28/2024 16:41:38 OBGyn Episode No OBEpisode recorded.
== END 2025-01-15 09:50 | disposition home or self-care (01) ==
LOC: HO.HMCH 08:37
PROVIDERS: PCP Internal Medicine; Visit Provider Internal Medicine
DX: E11.65 Type 2 diabetes mellitus with hyperglycemia (principal); Z79.4 Long term (current) use of insulin; J44.9 Chronic obstructive pulmonary disease, unspecified; I10 Essential (primary) hypertension; E78.00 Pure hypercholesterolemia, unspecified; F41.1 Generalized anxiety disorder; K21.9 Gastro-esophageal reflux disease without esophagitis; D73.89 Other diseases of spleen

== ENCOUNTER → 2025-01-15 08:36 | Outpatient (BNVA) | payer OTHER, SELFPAY | PROVIDERS: PCP Internal Medicine; Visit Provider Internal Medicine | DX: E11.65 Type 2 diabetes mellitus with hyperglycemia (principal); I10 Essential (primary) hypertension; E78.00 Pure hypercholesterolemia, unspecified; F41.1 Generalized anxiety disorder; K21.9 Gastro-esophageal reflux disease without esophagitis; D73.89 Other diseases of spleen; J44.9 Chronic obstructive pulmonary disease, unspecified; Z79.4 Long term (current) use of insulin; Z91.81 History of falling | CPT/HCPCS: 96127; 99212 ==

== ENCOUNTER 2025-01-18 08:33 | Outpatient (AMB) | payer OTHER, SELFPAY ==
--- OUTSIDE RECORDS SUMMARY | 2025-01-18 08:52 | XMS_ITS | Data Portability ---
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 Likely muscular strain/spasm. Per patient's [employer] portal, Cr 1.1. Okay to give IM toradol 15mg x 1. Can use tylenol PRN pain + heating pads. [email or web address] Not available 11/28/2024 16:03:32 Plan of Treatment Reminders Order Date Submit Date Provider Last Modified By Organization Details Last Modified Time Details Appointments None recorded. Lab None recorded. Referral None recorded. Procedures None recorded. Surgeries None recorded. Imaging None recorded. Medication Orders ketorolac 30 mg/mL injection solution 2024 025 [email or web address] [id number] [facility] #[id number], [address] [facility], [place], [address], 16:01:46 Patient TargetsNo targets recorded. Patient InstructionsNo instructions recorded. Reason for Referral None Reported. Medical Equipment None Reported. Allergies Allergen ID Allergen Name Allergen Category Reaction Reaction Severity Criticality Documentation Date Start Date Code Code System Note Provider Name and Address Organization Details Recorded Time 92470 lisinopri l medicatio n Not available Not available Not available 11/28/2024 71754 RxNorm Not Available [facility] - production 15:05:54 [...] t Available prednisone 5 mg tablet TOME DLIMA TABLETA POR V A ORAL EVERY OTHER [...] Available No t Available FreeStyle Jared 2 Lutts DIRECTED active Not Available Not Available Not [...] ICD10 Code Diagnosis IMO Codes Diagnosis Note [id number] ANA TUBBS MD [facility] [address] [place] [address] 11/28/2024 15:57:47 11/30/2024 23:48:08 Strain of right trapezius muscle [id number] S46.811A [id number] Health Concerns Section Related Observation LastModified by Organization Detai ls LastModified Time None Recorded Concern Status LastModified by Organization Details LastModified Time None Recorded Advance Directives Directive None Recorded Payers Insurance Date Sequence Insurance Name Policy Number Policy Osei Covered Member ID Osei Member ID Guarantor Name 05/14/2023 1 [facility] - DOS PRIOR TO 2022 - DUAL ELIGIBLE (MEDICARE REPLACEMENT/ADV ANTAGE - HMO) Nina Coats [id number] Nina Coats 11/28/2024 1 [facility] - DOS ON OR AFTER 2022 - DUAL ELIGIBLE - LONG TERM OPTIONS AND ONE CARE (MEDICARE REPLACEMENT/ADV ANTAGE - HMO) Nina Coats [id number] Nina Coats Notes Date Note Type Note [...] - : Comments: 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 ................... ................... ................... ................... ................... ........ Structural Draftsman Note From Chino Ramirez: Encountered patient conscious [...] Extremities are free of trauma and edema. [facility] contacted: patient presents recent bloodwork (11/20/24) exhibiting kidney function, values were relayed to [facility]. 15mg IM Toradol administered after medication r ights were reconciled with patient. Patient was encouraged to monitor herself for chest pain, shortness of breath, stroke symptoms or worsening pain and was encouraged to seek further medical attention, including 911, if said symptoms were to develop. Patient verbalizes understanding of the plan and states she is comfortable remaining home today. [facility] Medication Orders: ketorolac 30 mg/mL injection solution: Administered ................... ................... ................... ................... ................... ................... ................... ........ [facility] Consulted: Ana Tubbs ................... ................... ................... ................... ................... ................... ................... ........ Disposition: Fulfilled ANA TUBBS MD [address] [place] [address],[address], [place], [phone], MOISES GIL IYER 11/28/2024 16:41:38 OBGyn Episode No OBEpisode recorded.
--- NOTE | 2025-01-18 08:57 | A.OFFVIS_ITS ---
Intake Visit Reasons: Kidney Cysts Intake Note: New patient presents today for initial visit for kidney cysts Urology Medication:None Blood Thinner:None Antibiotic Allergies:None Allergies egg Allergy (Severe, Verified 01/18/25 08:58) throat swells up milk Allergy (Severe, Verified 01/18/25 08:58) throat swells up avocado Allergy (Intermediate, Verified 01/18/25 08:58) lip swelling lisinopril Allergy (Unknown, Verified 01/18/25 08:58) Unknown dulaglutide (From [facility]) Adverse Reaction (Intermediate, Verified 01/18/25 08:58) pancreatitis pioglitazone Adverse Reaction (Intermediate, Verified 01/18/25 08:58) Swelling HPI Comments Details: 01/18/25 History of Present Illness The patient is a 54-year-old female presenting with a kidney cyst. The kidney cyst was identified during an abdominal MRI conducted on November 06, 2024. The MRI revealed a 1.9 cm cyst located at the lower pole of the right kidney, which appeared benign. The cyst is described as a simple cyst with no concerning features. Additionally, there were cysts noted in the spleen, which require further evaluation by the primary care physician and oncologist. The oncologist has already been consulted regarding the splenic cysts, and a biopsy has been recommended. Results - Abdominal MRI on 11/06/24: 1.9 cm cyst in the lower pole of the right kidney, benign appearing. Plan 1. Kidney Cyst - No follow-up required for the kidney cyst as it is benign. 2. Splenic Cysts - Further evaluation by primary care physician and oncologist. - Biopsy recommended by oncologist. [facility] Medical History Obesity Hypoxemia Witnessed apneic spells Eczema Hordeolum externum left eye, unspecified eyelid Obesity Headache History of acute respiratory distress syndrome (ARDS) Persistent insomnia Respiratory failure with hypoxia Pneumonia due to severe acute respiratory syndrome coronavirus 2 (SARS-CoV-2) COVID-19 virus infection Cavitary lesion of lung Obesity (BMI 30-39.9) Anxiety and depression Hypersomnia Acute neck sprain Post covid-19 condition, unspecified Restrictive lung disease Lower extremity edema Pneumonia COVID-19 virus infection Diabetic nephropathy associated with type 2 diabetes mellitus Diabetic neuropathy associated with type 2 diabetes mellitus Acute meniscal tear of right knee Right thyroid nodule Psoriasis Hypertension Type 2 diabetes mellitus with hyperglycemia Hypercholesterolemia Osteoarthritis Insomnia GERD (gastroesophageal reflux disease) Diabetic nephropathy Bilateral carpal tunnel syndrome Surgical History History of D&C History of cholecystectomy History of section History of tubal ligation Family History Father Medical history unknown Mother Diabetes Hypertension Maternal Grandmother Pancreatic cancer Maternal Aunt Breast cancer Sister Breast cancer Social History Household Members: Family Housing: Apartment Are you a primary child care associate teacher to a significant other at home: No Do you presently have visiting nurse or other home services: No Alcohol intake: never Patient Tobacco Use Status: Never used Tobacco Tobacco use type: Cigarette e-Cigarette/Vaping Use: Never Used Second Hand Smoke Exposure: Yes service: No Current occupational status: disabled Cognitive needs: No Hearing needs: No Vision needs: No Review of Systems Const All systems reviewed & are unremarkable except as noted in HPI and below Reports no additional complaints Eyes Reports no additional complaints ENT Reports no additional complaints Card Reports no additional complaints Resp Reports no additional complaints GI Reports no additional complaints Reports as per HPI Musc Reports no additional complaints Skin/Breast Reports system reviewed and no additional complaints, except as documented Neuro Reports no additional complaints Psych Reports no additional complaints Endo Reports no additional complaints Allen/Lymph Reports no additional complaints Aller/Immun Reports no additional complaints Physical Exam Const General: cooperative, healthy appearing and no acute distress HEENT Head: Yes normal to inspection, Yes normocephalic and Yes atraumatic Eyes Conjunctivae: conjunctivae normal Neck Neck: Yes normal visual inspection and Yes trachea midline Chest Chest palpation & inspection: normal inspection of the chest Resp Effort & Inspection: normal respiratory effort GI Inspection: Yes normal to inspection Psych Appearance: grossly normal Assessment & Plan Assessment & Plan (1) Lesion of spleen: Code(s): D73.89 - Other diseases of spleen Category: Medical Plan: Patient has seen hematology oncology and workup presently. (2) Simple renal cyst: Code(s): N28.1 - Cyst of kidney, acquired Category: Medical Plan Plan 1. Kidney Cyst - No follow-up required for the kidney cyst as it is benign. 2. Splenic Cysts - Further evaluation by primary care physician and oncologist. - Biopsy recommended by oncologist. Patient Instructions: The patient had an opportunity to ask questions regarding treatment plan. The patient expressed understanding and agreement with the above treatment plan. The patient is aware they should contact our office by phone for worsening of their current condition or the appearance of new symptoms. Compliance is encouraged with any medications and followup testing that is ordered. It is a privilege to be allowed the opportunity to participate in the urologic care of your patient. If you have any questions or concerns regarding treatment for the above conditions please do not hesitate to contact me. The office telephone contact is [phone]. This note is constructed in part using voice recognition software. While every effort has been made to ensure accuracy locomotive boilermaker errors may have been included. Yours sincerely, Edin Steinberg MD Scribe Plan - Not visible on output: Patient was informed and verbally consented to the use of an ambient scribe for clinic note documentation during this visit. Coding Level of Care Code New Pt Level 3 (61546) Diagnoses 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 Simple renal cyst N28.1
== END 2025-01-18 09:42 | disposition home or self-care (01) ==
LOC: HO.HUSH 08:33
PROVIDERS: PCP Internal Medicine; Visit Provider Urology
DX: D73.89 Other diseases of spleen (principal); N28.1 Cyst of kidney, acquired; Z13.9 Encounter for screening, unspecified
CPT/HCPCS: 99203

== ENCOUNTER → 2025-01-18 08:33 | Outpatient (BNVA) | payer OTHER, SELFPAY | PROVIDERS: PCP Internal Medicine; Visit Provider Urology | DX: N28.1 Cyst of kidney, acquired (principal); D73.89 Other diseases of spleen | CPT/HCPCS: 81003; 99202 ==

== ENCOUNTER 2025-01-26 12:20 | Outpatient (AMB) | payer OTHER, SELFPAY ==
[2025-01-26 12:31] VITALS: BP 140/74; PULSE 71; O2SAT 97; BMI 38.5
--- NOTE | 2025-01-26 12:31 | A.OFFVIS_ITS ---
Vital Signs 01/26/25 12:31 Height 5 ft 3 in Weight 217 lb 2.485 oz BMI 38.5 BP 140/74 H Blood Pressure Location Lt brachial Position Sitting Pulse 71 Pulse Source Pulse Oximeter Pulse Oximetry (%) 97 Oxygen Delivery Method Room Air Intake Visit Reasons: osteoarthritis Intake Note: Patient presents for osteoarthritis today, internally referred by Dr. Rizvi of [facility] adult medicine. Accompanied by: Self / Same As Patient Allergies egg Allergy (Severe, Verified 01/18/25 08:58) throat swells up milk Allergy (Severe, Verified 01/18/25 08:58) throat swells up avocado Allergy (Intermediate, Verified 01/18/25 08:58) lip swelling lisinopril Allergy (Unknown, Verified 01/18/25 08:58) Unknown [facility] ([facility] Adverse Reaction (Intermediate, Verified 01/18/25 08:58) pancreatitis pioglitazone Adverse Reaction (Intermediate, Verified 01/18/25 08:58) Swelling HPI Comments Details: 54-year-old female with a history of diabetes, COPD, hypertension presents as new patient referred by her PCP for the evaluation of arthritis and plantar ten dinitis. 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 She states she has been having joint pain for the past 3 years.She states she has been having generalized joint pain in hands , burning pain in shoulders , pain in the entire back. she has pain in hips, and states she has a lot if weakness in the legs, and states she feels like she is falling particularly in the morning. She has numbness and tingling in hands and feet. She states she got COVID in 2020 with diffuse body ache and since then has not been feeling well. She takes no medication for the pain. She wakes up in the middle of the night because of back pain. She states when she walks her back pain but when lying down her back pain is worse no fever. she endorses headaches radiates into shoulder and occipital side. she was given medication for migraines but didnt work it. She states she has visual distortion, no visual changes. She also states she has jaw pain while chewing food. no weight loss, no bloody diarrhea, no skin rash, no oral ulcer, endorses photosensitivity no dry eyes some dry mouth no blood clot no miscarriage no blood clot, no blood in her urine. She also reports very poor sleep. FH: no known family history of autoimmune Vital signs reviewed Physical Examination CONSTITUITIONAL Patient alert and cooperative. Well appearing and in no apparent painful distress HEENT Conjunctiva and sclera clear. No lymphadenopathy. CHEST/RESPIRATORY SYSTEM Normal respiratory effort and able to speak in complete sentences. Clear to auscultation bilaterally. No crackles, rales, rhonchi, wheezes heard. CARDIAC SYSTEM Regular rate and rhythm. S1 and S2 heard no murmurs. Temporal pulses intact bilaterally MSK Hands * Right Hand: Able to make a fist. No active synovitis noted, tenderness noted of the PIPs * Left Hand: Able to make a fist.No active synovitis noted, tenderness noted of the PIPs Wrists * Right Wrist: Full ROM to flexion and extension. No swelling or TTP * Left Wrist: Full ROM to flexion and extension. No swelling or TTP Elbows * Right Elbow: Full ROM. Tenderness of the lateral condyle * Left Elbow: Full ROM. No swelling or TTP. Tenderness of the lateral condyle Shoulders * Right shoulder: Limited range of motion of the shoulder noted. Tenderness over the subacromial bursa * Left shoulder:Limited range of motion of the shoulder noted. Tenderness over the subacromial bursa Hips * Right hip: LIMITED RANGE OF MOTION OF THE HIPS, * Left hip: LIMITED RANGE OF MOTION OF THE HIPS, * Hip bursa: TENDERNESS TO PALPATION BILATERALLY Knees * Right knee: Limited range of motion. No swelling noted. No TTP of the knee joint line. No TTP of pes anserine bursa * Left knee: Limited range of motion. No swelling noted. No TTP of the knee joint line. No TTP of pes anserine bursa. Ankles * Right ankle: Good ankle dorsiflexion and plantar flexion. No swelling. * Left ankle: Good ankle dorsiflexion and plantar flexion. No swelling. Feet * Right foot: Negative squeeze test * Left foot: Negative squeeze test Tender points? * Diffuse tender fibromyalgia points positive SKIN No rashes [facility] Medical History Obesity Hypoxemia Witnessed apneic spells Eczema Hordeolum externum left eye, unspecified eyelid Obesity Headache History of acute respiratory distress syndrome (ARDS) Persistent insomnia Respiratory failure with hypoxia Pneumonia due to severe acute respiratory syndrome coronavirus 2 (SARS-CoV-2) COVID-19 virus infection Cavitary lesion of lung Obesity (BMI 30-39.9) Anxiety and depression Hypersomnia Acute neck sprain Post covid-19 condition, unspecified Restrictive lung disease Lower extremity edema Pneumonia COVID-19 virus infection Diabetic nephropathy associated with type 2 diabetes mellitus Diabetic neuropathy associated with type 2 diabetes mellitus Acute meniscal tear of right knee Right thyroid nodule Psoriasis Hypertension Type 2 diabetes mellitus with hyperglycemia Hypercholesterolemia Osteoarthritis Insomnia GERD (gastroesophageal reflux disease) Diabetic nephropathy Bilateral carpal tunnel syndrome Surgical History History of D&C History of cholecystectomy History of section History of tubal ligation Family History Father Medical history unknown Mother Diabetes Hypertension Maternal Grandmother Pancreatic cancer Maternal Aunt Breast cancer Sister Breast cancer Social History Household Members: Family Housing: Apartment Are you a primary patient care manager to a significant other at home: No Do you presently have visiting nurse or other home services: No Alcohol intake: never Patient Tobacco Use Status: Never used Tobacco Tobacco use type: Cigarette e-Cigarette/Vaping Use: Never Used Second Hand Smoke Exposure: Yes service: No Current occupational status: disabled Cognitive needs: No Hearing needs: No Vision needs: No Physical Exam Vital Signs: Last Vital Signs Pulse 71 01/26/25 12:31 BP 140/74 H 01/26/25 12:31 Pulse Ox 97 01/26/25 12:31 Oxygen Delivery Method Room Air 01/26/25 12:31 BMI result Body Mass Index 38.5 Assessment & Plan Assessment & Plan (1) Generalized joint pain: Code(s): M25.50 - Pain in unspecified joint Category: Medical Plan: Patient presents with a evaluation of generalized joint pain, with muscle weakness. Based on her history, her joint pain may be of inflammatory in nature, as joint pain in her hands and in her lower back wakes her up in the middle of the night, and it is improved with activity. She also states she has muscle weakness in the morning with stiffness. Along with this she is reporting frequent headaches with visual distortion and jaw claudication which is concerning for GCA even though her temporal arteries are patent with good pulsation. I will obtain further lab work including inflammatory markers ESR CRP specifically to rule out PMR/GCA, arthritis panel including uric acid, DHAVAL DHAVAL subsets, C3, C4, urine studies and RF, CCP. In light of her muscle weakness I will also obtain a CK and aldolase level. I will refer her to the neurologist in light of her frequent headaches with visual distortion. I will also obtain x-rays of her hands, bilateral shoulders and lumbar and thoracic spine to look for evidence of inflammatory arthritis versus DJD. On physical exam and as per her history she also has a component of fibromyalgia therefore I will also refer her to physical therapy for exercises to improve her mobility and strength in her muscles Patient does not want to try any medication at the moment and prefers conservative measures I will see her back in 3 weeks following the results of her lab work and x-rays. (2) Frequent headaches: Code(s): R51.9 - Headache, unspecified Category: Medical (3) Osteoarthritis: Code(s): M19.90 - Unspecified osteoarthritis, unspecified site Category: Medical Qualifiers: Osteoarthritis location: foot Osteoarthritis type: unspecified Laterality: unspecified laterality Qualified Code(s): M19.079 - Primary osteoarthritis, unspecified ankle and foot (4) Fibromyalgia: Code(s): M79.7 - Fibromyalgia Category: Medical Plan Patient presents with a evaluation of generalized joint pain, with muscle weakness. Based on her history, her joint pain may be of inflammatory in nature, as joint pain in her hands and in her lower back wakes her up in the middle of the night, and it is improved with activity. She also states she has muscle weakness in the morning with stiffness. Along with this she is reporting frequent headaches with visual distortion and jaw claudication which is concerning for GCA even though her temporal arteries are patent with good pulsation. I will obtain further lab work including inflammatory markers ESR CRP specifically to rule out PMR/GCA, arthritis panel including uric acid, DHAVAL DHAVAL subsets, C3, C4, urine studies and RF, CCP. In light of her muscle weakness I will also obtain a CK and aldolase level. I will refer her to the neurologist in light of her frequent headaches with visual distortion. I will also obtain x-rays of her hands, bilateral shoulders and lumbar and thoracic spine to look for evidence of inflammatory arthritis versus DJD. On physical exam and as per her history she also has a component of fibromyalgia therefore I will also refer her to physical therapy for exercises to improve her mobility and strength in her muscles Patient does not want to try any medication at the moment and prefers conservative measures I will see her back in 3 weeks following the results of her lab work and x-rays. Orders: Orders Sm Sm/HOSPICE AIDE Antibodies Today M19.90 - Unspecified osteoarthritis, unspecified site, M25.511 - Pain in right shoulder Creatine Kinase Total Today M19.90 - Unspecified osteoarthritis, unspecified site, M25.511 - Pain in right shoulder Erythrocyte Sedimentation Rate Today M19.90 - Unspecified osteoarthritis, unspecified site, M25.511 - Pain in right shoulder Protein Creatinine Ratio, Ur Today M19.90 - Unspecified osteoarthritis, unspecified site, M25.511 - Pain in right shoulder Rheumatoid Factor Today R76.0 - Raised antibody titer XR Shoulder Dewayne min 2V Today M19.90 - Unspecified osteoarthritis, unspecified site, M25.511 - Pain in right shoulder XR lumbar spine 2-3V Today M1.90 - Unspecified osteoarthritis, unspecified site, M25.511 - Pain in right shoulder XR thoracic spine 2V Today M19.90 - Unspecified osteoarthritis, unspecified site, M25.511 - Pain in right shoulder PT Evaluation and Treatment Today M19.90 - Unspecified osteoarthritis, unspecified site, M25.511 - Pain in right shoulder, M79.7 - Fibromyalgia Aldolase Today M25.50 - Pain in unspecified joint, M25.511 - Pain in right shoulder, R51.9 - Headache, unspecified Anti-Centromere B Antibodies Today M19.90 - Unspecified osteoarthritis, unspecified site, M25.511 - Pain in right shoulder Anti DNA DS Antibody Today M1.90 - Unspecified osteoarthritis, unspecified site, M25.511 - Pain in right shoulder Complement C3 Today M19.90 - Unspecified osteoarthritis, unspecified site, M25.511 - Pain in right shoulder Complement C4 Today M19.90 - Unspecified osteoarthritis, unspecified site, M25.511 - Pain in right shoulder C Reactive Protein Today M19.90 - Unspecified osteoarthritis, unspecified site, M25.511 - Pain in right shoulder Scleroderma 70 Antibody Today M1.90 - Unspecified osteoarthritis, unspecified site, M25.511 - Pain in right shoulder Sjogren's Antibodies Today M1.90 - Unspecified osteoarthritis, unspecified s ite, M25.511 - Pain in right shoulder Uric Acid Today M19.90 - Unspecified osteoarthritis, unspecified site DHAVAL Reflex Titer and Pattern Today M25.50 - Pain in unspecified joint, M25.511 - Pain in right shoulder, R51.9 - Headache, unspecified Cyclic Citrullinated Peptide Today R76.0 - Raised antibody titer XR Hand Bilat min 3v Today M19.90 - Unspecified osteoarthritis, unspecified site, M25.50 - Pain in unspecified joint Referrals Neurology Referral R51.9 - Headache, unspecified Coding Level of Care Code New Pt Level 4 (75259) Diagnoses Generalized joint pain M25.50 Frequent headaches R51.9 Osteoarthritis of foot, unspecified laterality, unspecified osteoarthritis type M19.079 Osteoarthritis location: foot Osteoarthritis type: unspecified Laterality: unspecified laterality Fibromyalgia M79.7
--- OUTSIDE RECORDS SUMMARY | 2025-01-27 03:19 | XMS_ITS | Continuity of Care Document ---
Author Name [facility], Medical Address [address] [place] [address] Organization Unknown Address [address] [place] [address] Medications No known medications Problems No known problems
--- OUTSIDE RECORDS SUMMARY | 2025-01-27 03:19 | XMS_ITS | Data Portability ---
Author Organization [employer] [facility], [facility] Address [address] [place] [id number] Care Team Providers Care Shift Superintendent Name Role Phone HIM CCA OTHER Assessment [...] to pain. Likely muscular strain/spasm. Per patient's [employer] [employer] portal, Cr 1.1. Okay to give IM toradol 15mg x 1. Can use tylenol PRN pain + heating pads. [email or web address] Not available 11/28/2024 16:03:32 Plan of Treatment Reminders Order Date Submit Date Provider Last Modified By Organization Details Last Modified Time Details Appointments None recorded. Lab None recorded. Referral None recorded. Procedures None recorded. Surgeries None recorded. Imaging None recorded. Medication Orders ketorolac 30 mg/mL injection solution [id number] [id number], [address] [facility], [place], [address], 16:01:46 Patient TargetsNo targets recorded. Patient InstructionsNo instructions recorded. Reason for Referral None Reported. Medical Equipment None Reported. Allergies Allergen ID Allergen Name Allergen Category Reaction Reaction Severity Criticality Documentation Date Start Date Code Code System Note Provider Name and Address Organization Details Recorded Time 34049 lisinopri l medicatio n Not available Not available Not available 11/28/2024 50364 RxNorm Not Available [facility] - production 15:05:54 [...] Available No t Available [employer] Jared 2 Odin DIRECTED active Not Available Not Available Not [...] ICD10 Code Diagnosis IMO Codes Diagnosis Note [id number] ANA TUBBS MD [facility] [address] [place] [phone] 11/28/2024 15:57:47 11/30/2024 23:48:08 Strain of right trapezius muscle [id number] S46.811A [id number] Health Concerns Section Related Observation LastModified by Organization Detai ls LastModified Time None Recorded Concern Status LastModified by Organization Details LastModified Time None Recorded Advance Directives Directive None Recorded Payers Insurance Date Sequence Insurance Name Policy Number Policy Osei Covered Member ID Osei Member ID Guarantor Name 05/14/[address] [facility] - DOS PRIOR TO 2022 - DUAL ELIGIBLE (MEDICARE REPLACEMENT/ADV ANTAGE - HMO) Nina Coats [id number] Nina Coats 11/28/[address] [facility] - DOS ON OR AFTER 2022 - DUAL ELIGIBLE - HALF-WAY OPTIONS AND ONE CARE (MEDICARE REPLACEMENT/ADV ANTAGE - HMO) Nina Coats [id number] Nina Coats Notes Date Note Type Note [...] - : Comments: Member calling in with historic interpreter complaining of pain on the right [...] ................... ................... ................... ................... ................... ................... ........ Certified Medical Biller Note From Chino Ramirez: Encountered patient conscious [...] Extremities are free of trauma and edema. [facility] contacted: patient presents recent bloodwork (11/20/24) exhibiting kidney function, values were relayed to [facility]. 15mg IM Toradol administered after medication r ights were reconciled with patient. Patient was encouraged to monitor herself for chest pain, shortness of breath, stroke symptoms or worsening pain and was encouraged to seek further medical attention, including 911, if said symptoms were to develop. Patient verbalizes understanding of the plan and states she is comfortable remaining home today. [facility] Medication Orders: ketorolac 30 mg/mL injection solution: Administered ................... ................... ................... ................... ................... ................... ................... ........ [facility] Consulted: Ana Tubbs ................... ................... ................... ................... ................... ................... ................... ........ Disposition: Fulfilled ANA TUBBS MD [address] [place] [address],[address], [place], [address], MOISES GIL IYER 11/28/2024 16:41:38 OBGyn Episode No OBEpisode recorded.
--- OUTSIDE RECORDS SUMMARY | 2025-01-27 03:19 | XMS_ITS | Encounter Summary ---
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 Pain started yesterday- and attempted to call [employer] yesterday. The pain is a little worse [...] Extremities are free of trauma and edema. [facility] contacted: patient presents recent bloodwork (11/20/24) exhibiting kidney function, values wererelayed to [facility]. 15mg IM Toradol administered after medication ???rights?? [...]
== END 2025-01-26 13:19 | disposition home or self-care (01) ==
LOC: HO.RHES 12:21
PROVIDERS: PCP Internal Medicine; Visit Provider Student in an Organized Health Care Education/Training Program
DX: M25.50 Pain in unspecified joint (principal); R51.9 Headache, unspecified; M19.079 Primary osteoarthritis, unspecified ankle and foot; M79.7 Fibromyalgia
CPT/HCPCS: 99204

== ENCOUNTER 2025-01-26 12:20 | Outpatient (REF) | payer OTHER, SELFPAY ==
--- NOTE | ~2025-01-26 | XR_ITS ---
EXAMINATION: XR LUMBOSACRAL SPINE CLINICAL INFORMATION: M25.511 - Pain in right shoulder COMPARISON: 10/31/2017 TECHNIQUE: Three views of the lumbosacral spine. FINDINGS: Surgical clips are again identified in right upper quadrant. There are 5 nonrib-bearing lumbar segments. There is 17 degrees convex left scoliosis, increased from the prior. There is minimal degenerative disc disease with disc space narrowing and minimal facet osteophytes at L1-L2 through L4-5. There are moderate changes at L5-S1. Additionally, there is facet sclerosis and osteophytes at L3-4 through L5-S1. Degenerative changes have increased since the prior. XR/XR lumbar spine 2-3V IMPRESSION: Mild degenerative disc disease and facet osteoarthritis has increased since the prior. Mild levoscoliosis has increased since the prior. Electronically signed by: Antoni Simmons MD 01/26/2025 03:06 PM JOCELINE BENEDICT
--- NOTE | ~2025-01-26 | XR_ITS ---
Exam: XR HAND 3 VIEWS BILATERAL, bilateral hand x-rays TECHNIQUE: AP, lateral, and oblique views upper extremity, bilateral hands INDICATION: M19.90 - Unspecified osteoarthritis, unspecified site COMPARISON: Right hand November 29, 2015 and left hand 12/06/2017 FINDINGS: RIGHT HAND: Minute marginal osteophytes are present in the DIP joints of the third, and fifth digits, and there are small osteophytes involving the fourth DIP joint which is also mildly narrowed. Osteophytes are slightly increased from the prior. Minute marginal osteophytes are present at the second PIP joint. Small chronic faint ossification is again identified distal to the ulnar styloid. No other abnormalities are evident. LEFT HAND: Minute marginal sites are evident involving the second-fifth DIP joints with subtle joint space narrowing. There is subchondral sclerosis and marginal osteophytes involving the first CMC joint, increased from the prior. XR/XR Hand Bilat min 3v IMPRESSION: Right hand: Mild osteoarthritis, slightly progressed since the prior Left hand: Moderate osteoarthritis is present at the first CMC joint and minimal osteoarthritis is noted in the DIP joints, increased since the prior. Electronically signed by: Antoni Simmons MD 01/26/2025 03:00 PM [facility]
--- NOTE | ~2025-01-26 | XR_ITS ---
EXAMINATION: XR THORACIC SPINE CLINICAL INFORMATION: M19.90 - Unspecified osteoarthritis, unspecified site COMPARISON: October 31, 2017 TECHNIQUE: 3 views of the thoracic spine were obtained. FINDINGS: Multiple surgical clips project over the right upper quadrant. There is 15 degrees convex right curvature of the thoracic spine. Vertebral body height and alignment is preserved. There are mild degenerative changes in the thoracic spine with minimal disc space narrowing and endplate osteophytes. Moderate degenerative changes visible at C5-6 with disc space narrowing and endplate osteophytes with sclerosis. XR/XR thoracic spine 2V IMPRESSION: Mild dextroscoliosis and mild degenerative changes in thoracic spine. Moderate degenerative changes C5-6. Electronically signed by: Antoni Simmons MD 01/26/2025 03:03 PM [facility]
--- NOTE | ~2025-01-26 | XR_ITS ---
EXAMINATION: X-ray bilateral shoulders CLINICAL INFORMATION: Osteoarthritis COMPARISON: X-ray left shoulder 12/11/2018 TECHNIQUE: Left shoulder 4 views. Right shoulder 4 views. FINDINGS: Left shoulder: Mild acromioclavicular arthritis. Glenohumeral joint space is maintained. No acute fracture dislocation. No suspicious bony lesion. No abnormal soft tissue calcification. Right shoulder: Mild acromioclavicular arthritis. Subacromial spurring. Glenohumeral joint space is maintained. No suspicious bony lesion. No abnormal soft tissue calcification. XR/XR Shoulder Dewayne min 2V IMPRESSION: LEFT SHOULDER: Mild acromioclavicular arthritis. RIGHT SHOULDER: Mild acromioclavicular arthritis. Electronically signed by: Kumar Goodrich MD 01/27/2025 01:54 PM EST
[2025-01-26 18:47] LABS: Protein/Creatinine Ratio, Ur 0.19 (<0.2); Total Protein Urine Random 49 mg/dL (<12)
[2025-01-26 18:49] LABS: Uric Acid 6.0 mg/dL (2.4-5.7)
--- OUTSIDE RECORDS SUMMARY | 2025-01-27 06:14 | XMS_ITS | Continuity of Care Document ---
Author Name [facility], Medical Address [address] [place] [address] Organization Unknown Address [address] [place] [address] Medications No known medications Problems No known problems
--- OUTSIDE RECORDS SUMMARY | 2025-01-27 06:14 | XMS_ITS | Encounter Summary ---
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 Pain started yesterday- and attempted to call [employer] yesterday. The pain is a little worse [...] Extremities are free of trauma and edema. [facility] contacted: patient presents recent bloodwork (11/20/24) exhibiting kidney function, values wererelayed to [facility]. 15mg IM Toradol administered after medication ???rights?? [...]
[2025-01-27 14:09] LABS: Antibody to SS-A Antigen <1.0 NEG AI (<1.0 NEG); Antibody to SS-B Antigen <1.0 NEG AI (<1.0 NEG); SM/Ribonucleoprotein Ab <1.0 NEG AI (<1.0 NEG); Smith Protein <1.0 NEG AI (<1.0 NEG)
[2025-01-28 16:18] LABS: Anti Nuclear Antibody Pattern Nuclear, Homogeneous; Anti Nuclear Antibody Screen POSITIVE (NEGATIVE); Anti Nuclear Antibody Titer 1:80 titer
== END 2025-01-26 12:21 | disposition home or self-care (01) ==
LOC: HO.HKASLDS 12:20
PROVIDERS: PCP Internal Medicine; Visit Provider Student in an Organized Health Care Education/Training Program
DX: M19.079 Primary osteoarthritis, unspecified ankle and foot (principal); R51.9 Headache, unspecified; M25.511 Pain in right shoulder; M79.7 Fibromyalgia; M79.642 Pain in left hand; M79.641 Pain in right hand; R76.0 Raised antibody titer; Z01.84 Encounter for antibody response examination
CPT/HCPCS: 36415; 72070; 72100; 73030; 73130; 82085; 82550; 82570; 84156; 84550; 85652; 86038; 86039; 86140; 86160; 86200; 86225; 86235; 86431; 99202

== ENCOUNTER → 2025-01-26 14:03 | Outpatient (BNV) | payer OTHER, SELFPAY | PROVIDERS: PCP Internal Medicine; Visit Provider Radiology Diagnostic Radiology | DX: M25.511 Pain in right shoulder (principal); M19.90 Unspecified osteoarthritis, unspecified site | CPT/HCPCS: 72070; 72100; 73030; 73130 ==

== ENCOUNTER 2025-01-27 10:38 | Outpatient (REF) | payer OTHER, SELFPAY ==
--- OUTSIDE RECORDS SUMMARY | 2025-01-27 20:49 | XMS_ITS | Continuity of Care Document ---
Author Name [facility], Medical Address [address] [place] [address] Organization Unknown Address [address] [place] [address] Medications No known medications Problems No known problems
--- OUTSIDE RECORDS SUMMARY | 2025-01-27 20:49 | XMS_ITS | Encounter Summary ---
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 Pain started yesterday- and attempted to call [employer] yesterday. The pain is a little worse [...] Extremities are free of trauma and edema. [facility] contacted: patient presents recent bloodwork (11/20/24) exhibiting kidney function, values wererelayed to [facility]. 15mg IM Toradol administered after medication ???rights?? [...]
== END 2025-01-27 10:39 | disposition home or self-care (01) ==
LOC: HO.MAMMO 10:38
PROVIDERS: PCP Internal Medicine; Visit Provider Internal Medicine
DX: Z12.31 Encounter for screening mammogram for malignant neoplasm of breast (principal)
CPT/HCPCS: 77063; 77067

== ENCOUNTER → 2025-01-27 11:00 | Outpatient (BNV) | payer OTHER, SELFPAY | PROVIDERS: PCP Internal Medicine; Visit Provider Internal Medicine | DX: Z12.31 Encounter for screening mammogram for malignant neoplasm of breast (principal) | CPT/HCPCS: 77063; 77067 ==

== ENCOUNTER 2025-02-12 08:42 | Outpatient (AMB) | payer OTHER, SELFPAY ==
--- NOTE | 2025-02-12 08:43 | A.OFFVIS_ITS ---
Vital Signs 02/12/25 09:25 Height 5 ft 3 in Weight 215 lb BMI 38.1 BP 161/101 H Blood Pressure Location Rt brachial Position Sitting Respiration 16 Pulse 77 Pulse Source Pulse Oximeter Pulse Oximetry (%) 95 Intake Visit Reasons: Headaches Metalizing Machine Operator Required: Yes Metalizing Machine Operator Services: Metalizing Machine Operator Present Metalizing Machine Operator Name: [id number] Information Interpreted: non-clinical & clinical Allergies egg Allergy (Severe, Verified 02/12/25 09:25) throat swells up milk Allergy (Severe, Verified 02/12/25 09:25) throat swells up avocado Allergy (Intermediate, Verified 02/12/25 09:25) lip swelling lisinopril Allergy (Unknown, Verified 02/12/25 09:25) Unknown dulaglutide (From [facility]) Adverse Reaction (Intermediate, Verified 02/12/25 09:25) pancreatitis pioglitazone Adverse Reaction (Intermediate, Verified 02/12/25 09:25) Swelling HPI Comments Details: Nina is a 54-year-old female patient with a past medical history of anxiety, insomnia, restrictive lung disease, diabetic neuropathy, type 2 diabetes, hypercholesterolemia, osteoarthritis, GERD, diabetic nephropathy, and possible diagnosis of polymyalgia rheumatica with elevated inflammatory markers, generalized joint pain, and fatigue. She was recently started on prednisone by primary care for the possibility of polymyalgia rheumatica. According to the patient today, she has been experiencing headaches for the past 3 years. Her headaches are daily at current and can vary in intensity but averaging an 8/10 on most days. Her pain starts to the right shoulder radiating to the right side of her head. The pain is described as a pressure and pulling sensation. She has accompanying dizziness at time and some blured vision with increased pain. She denies light sensitivity, sound sensitivity, or nausea. She has trailed sumatriptan but there was no benefit with this. She has also tried tylenol with no significant benefit. Headache characteristics: Time of onset:3 years ago Location:Right occipital and parietal area Radiation: Shoulder Positional component:No Character:Pressure and pulling Severity: 8/10 on average Duration:Constant Frequency:Daily Acute aggravating factors: Stress Acute relieving factors:Vicks vapor rub to the occipital area and right shoulder area Associated symptoms:Dizziness and blurring of vision when headaches are most intense Aura:None Headache triggers:None Other related background information: Sleep:Reports poor sleep/ insomnia- takes seroquel but uses it only as needed. Reports negative sleep studies in the past. Stressors: Increased stress due to headaches Hydration:Hydrates well (8-16 oz bottles of water daily) Caffeine intake:Not daily Alcohol intake:None Substance use:None Tobacco use:None Last eye exam:November 2024 Last dental visit:>5 years. Denies clenching or grinding of her teeth History of head injury:None Past medication trials: Sumatriptan- No improvement Prior workup: None [facility] History Obesity Hypoxemia Witnessed apneic spells Eczema Hordeolum externum left eye, unspecified eyelid Obesity Headache History of acute respiratory distress syndrome (ARDS) Persistent insomnia Respiratory failure with hypoxia Pneumonia due to severe acute respiratory syndrome coronavirus 2 (SARS-CoV-2) COVID-19 virus infection Cavitary lesion of lung Obesity (BMI 30-39.9) Anxiety and depression Hypersomnia Acute neck sprain Post covid-19 condition, unspecified Restrictive lung disease Lower extremity edema Pneumonia COVID-19 virus infection Diabetic nephropathy associated with type 2 diabetes mellitus Diabetic neuropathy associated with type 2 diabetes mellitus Acute meniscal tear of right knee Right thyroid nodule Psoriasis Hypertension Type 2 diabetes mellitus with hyperglycemia Hypercholesterolemia Osteoarthritis Insomnia GERD (gastroesophageal reflux disease) Diabetic nephropathy Bilateral carpal tunnel syndrome Surgical History History of D&C History of cholecystectomy History of section History of tubal ligation Family History Father Medical history unknown Mother Diabetes Hypertension Maternal Grandmother Pancreatic cancer Maternal Aunt Breast cancer Sister Breast cancer Social History Household Members: Family Housing: Apartment Are you a primary long term care pharmacist to a significant other at home: No Do you presently have visiting nurse or other home services: No Alcohol intake: never Patient Tobacco Use Status: Never used Tobacco Tobacco use type: Cigarette e-Cigarette/Vaping Use: Never Used Second Hand Smoke Exposure: Yes service: No Current occupational status: disabled Cognitive needs: No Hearing needs: No Vision needs: No Review of Systems Const All systems reviewed & are unremarkable except as noted in HPI and below Physical Exam Const General: cooperative, healthy appearing, comfortable and no acute distress Nutritional Appearance: well nourished Orientation/consciousness: patient oriented x3 Limitations: no limitations HEENT Head: Yes normal to inspection and Yes normocephalic Eyes General: appearance normal, both eyes and all related structures Visual Huitron: normal visual huitron by confrontation Alignment and Position: alignment normal Periorbital: periorbital findings normal Eyelids: Yes eyelids normal Conjunctivae: conjunctivae normal Sclerae: sclerae normal Back/Spine/Pelvis Other: Right trapezius trigger point and right occipital notch tenderness. Neuro General: patient oriented x3 and deep tendon reflexes 2+ bilaterally Cranial nerves: Yes CN's II-XII intact bilaterally and Yes Facial sensation intact/muscles of mastication intact Cognition (Neuro): normal cognition Gait exam (Neuro): Normal gait present Motor exam (neuro): 5/5 motor strength present throughout and no tremor noted Sensory Exam: double simultaneous stimulation for sensation normal Romberg Test: Negative Pupils: Normal pupillary reactivity/response: bilateral Psych Appearance: grossly normal Mental Status: mental status grossly normal Speech and movement: Normal speech and movement present and Clear speech present Affect: normal affect Attitude: cooperative Thought process: Normal thought process present Thought content: Normal thought content present Insight: Good insight present (Psych) Judgement: Good judgement present (Psych) Assessment & Plan Assessment & Plan (1) Occipital neuralgia: Code(s): M54.81 - Occipital neuralgia Category: Medical (2) Muscle pain, myofascial: Code(s): M79.18 - Myalgia, other site Category: Medical (3) Trigger point of right shoulder region: Code(s): M25.511 - Pain in right shoulder Category: Medical (4) Chronic tension type headache: Code(s): G44.229 - Chronic tension-type headache, not intractable Category: Medical Plan Nina is a 54-year-old female patient with a past medical history of anxiety, insomnia, restrictive lung disease, diabetic neuropathy, type 2 diabetes, hypercholesterolemia, osteoarthritis, GERD, diabetic nephropathy, and possible diagnosis of polymyalgia rheumatica here today for evaluation of ongoing headaches. Headaches have been occurring for 3 years and are primarily located to the right occipital area. Headaches are characteristic of chronic tension type headaches with right occipital neuralgia. This is likely related to her very poor sleep quality. We reviewed options today for treatment. She expresses desire to avoid another daily medication and does not wish to do injections. She is agreeable to a trial of physical therapy for myofascial release including some dry needling. I have also advised for heat and massage therapy techniques at home in efforts to lose in upper trapezius muscle which is likely causing occipital nerve entrapment. If physical therapy is not beneficial, I would like to revisit possibility of use of short term muscle relaxers, nerve blocks, or trigger point injections. -Physical therapy for myofacial release including dry needling -Heat and massage therapy techniques at home -Follow-up in 2 months -Future considerations: Muscle relaxers, nerve blocks, and trigger point injections Orders: Orders PT Evaluation and Treatment Today G44.229 - Chronic tension-type headache, not intractable, M25.511 - Pain in right shoulder, M54.81 - Occipital neuralgia, M79.18 - Myalgia, other site Coding Level of Care Code New Pt Level 4 (98908) Diagnoses Occipital neuralgia M54.81 Muscle pain, myofascial M79.18 Trigger point of right shoulder region M25.511 Chronic tension type headache G44.229
[2025-02-12 09:25] VITALS: BP 161/101; PULSE 77; RESP 16; O2SAT 95; BMI 38.1
== END 2025-02-12 09:47 | disposition home or self-care (01) ==
LOC: HO.HSM 08:43
PROVIDERS: PCP Internal Medicine; Visit Provider Nurse Practitioner
DX: M54.81 Occipital neuralgia (principal); M79.18 Myalgia, other site; M25.511 Pain in right shoulder; G44.229 Chronic tension-type headache, not intractable
CPT/HCPCS: 99204

== ENCOUNTER → 2025-02-12 08:42 | Outpatient (BNVA) | payer OTHER, SELFPAY | PROVIDERS: PCP Internal Medicine; Visit Provider Nurse Practitioner | DX: G44.229 Chronic tension-type headache, not intractable (principal); M54.81 Occipital neuralgia; M79.18 Myalgia, other site; M25.511 Pain in right shoulder | CPT/HCPCS: 99202 ==

== ENCOUNTER 2025-02-16 09:50 | Outpatient (AMB) | payer OTHER, SELFPAY ==
--- NOTE | 2025-02-16 09:51 | A.OFFVIS_ITS ---
Vital Signs 02/16/25 09:52 Height 5 ft 3 in Weight 212 lb 15.465 oz BMI 37.7 BP 146/82 H Blood Pressure Location Rt brachial Position Sitting Pulse 80 Pulse Source Pulse Oximeter Intake Visit Reasons: follow up Intake Note: Patient presents for follow up on osteoarthritis, x-ray and lab review. Game Technician Required: Yes Game Technician Language: Area Plant Manager Services: Game Technician Present Game Technician Name: Nathalia [id number] Information Interpreted: non-clinical & clinical Accompanied by: Self / Same As Patient Allergies egg Allergy (Severe, Verified 02/16/25 09:56) throat swells up milk Allergy (Severe, Verified 02/16/25 09:56) throat swells up avocado Allergy (Intermediate, Verified 02/16/25 09:56) lip swelling lisinopril Allergy (Unknown, Verified 02/16/25 09:56) Unknown dulaglutide (From Trulicity) Adverse Reaction (Intermediate, Verified 02/16/25 09:56) pancreatitis pioglitazone Adverse Reaction (Intermediate, Verified 02/16/25 09:56) Swelling HPI Comments Details: 54-year-old female with a history of diabetes, COPD, hypertension presents as a follow up referred by her PCP for the evaluation of arthritis and plantar tendinitis. 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 Patient has ongoing pain in her shoulders, hands, neck, knees and hips. On blood work, patient had a mildly elevated ESR of 23, CRP of 0.8. She had negative RF, CCP, DHAVAL mildly positive 1:80, normal CK and aldolase levels Imaging of the hands revealed moderate osteoarthritis. Imaging of the shoulders revealed mild arthritis. Imaging of the thoracic and lumbar spine reveals moderate degenerative changes. Based on her diffuse joint pain and her mildly elevated inflammatory markers, a presumptive diagnosis of PMR was made and therefore a trial of prednisone 15 mg was done, however patient reports that she took prednisone 15 mg for 4 days, and it started to make her feel dizzy and then she took prednisone reduced dose 10 mg. She states that the prednisone did not help her joint pain at all and she feels the same. She also saw Neurology, and her headaches are most likely chronic tension headaches, and they suggested physical therapy and relaxation techniques for her. Previous history: She states she has been having joint pain for the past 3 years.She states she has been having generalized joint pain in hands , burning pain in shoulders , pain in the entire back. she has pain in hips, and states she has a lot if weakness in the legs, and states she feels like she is falling particularly in the morning. She has numbness and tingling in hands and feet. She states she got COVID in 2020 with diffuse body ache and since then has not been feeling well. She takes no medication for the pain. She wakes up in the middle of the night because of back pain. She states when she walks her back pain but when lying down her back pain is worse no fever. she endorses headaches radiates into shoulder and occipital side. she was given medication for migraines but didnt work it. She states she has visual distortion, no visual changes. She also states she has jaw pain while chewing food. no weight loss, no bloody diarrhea, no skin rash, no oral ulcer, endorses photosensitivity no dry eyes some dry mouth no blood clot no miscarriage no blood clot, no blood in her urine. She also reports very poor sleep. FH: no known family history of autoimmune Vital signs reviewed Physical Examination CONSTITUITIONAL Patient alert and cooperative. Well appearing and in no apparent painful distress HEENT Conjunctiva and sclera clear. No lymphadenopathy. CHEST/RESPIRATORY SYSTEM Normal respiratory effort and able to speak in complete sentences. Clear to auscultation bilaterally. No crackles, rales, rhonchi, wheezes heard. CARDIAC SYSTEM Regular rate and rhythm. S1 and S2 heard no murmurs. Temporal pulses intact bilaterally MSK Hands * Right Hand: Able to make a fist. No active synovitis noted, tenderness noted of the PIPs * Left Hand: Able to make a fist.No active synovitis noted, tenderness noted of the PIPs Wrists * Right Wrist: Full ROM to flexion and extension. No swelling or TTP * Left Wrist: Full ROM to flexion and extension. No swelling or TTP Elbows * Right Elbow: Full ROM. Tenderness of the lateral condyle * Left Elbow: Full ROM. No swelling or TTP. Tenderness of the lateral condyle Shoulders * Right shoulder: Limited range of motion of the shoulder noted. Tenderness over the subacromial bursa * Left shoulder:Limited range of motion of the shoulder noted. Tenderness over the subacromial bursa Hips * Right hip: LIMITED RANGE OF MOTION OF THE HIPS, * Left hip: LIMITED RANGE OF MOTION OF THE HIPS, * Hip bursa: TENDERNESS TO PALPATION BILATERALLY Knees * Right knee: Limited range of motion. No swelling noted. No TTP of the knee joint line. No TTP of pes anserine bursa * Left knee: Limited range of motion. No swelling noted. No TTP of the knee joint line. No TTP of pes anserine bursa. Ankles * Right ankle: Good ankle dorsiflexion and plantar flexion. No swelling. * Left ankle: Good ankle dorsiflexion and plantar flexion. No swelling. Feet * Right foot: Negative squeeze test * Left foot: Negative squeeze test Tender points? * Diffuse tender fibromyalgia points positive SKIN No rashes [facility] Medical History (Updated 02/12/25 @ 10:00 by Nilam Bennett CNP) Muscle pain, myofascial Obesity Hypoxemia Witnessed apneic spells Eczema Hordeolum externum left eye, unspecified eyelid Obesity Headache History of acute respiratory distress syndrome (ARDS) Persistent insomnia Respiratory failure with hypoxia Pneumonia due to severe acute respiratory syndrome coronavirus 2 (SARS-CoV-2) COVID-19 virus infection Cavitary lesion of lung Obesity (BMI 30-39.9) Anxiety and depression Hypersomnia Acute neck sprain Post covid-19 condition, unspecified Restrictive lung disease Lower extremity edema Pneumonia COVID-19 virus infection Diabetic nephropathy associated with type 2 diabetes mellitus Diabetic neuropathy associated with type 2 diabetes mellitus Acute meniscal tear of right knee Right thyroid nodule Psoriasis Hypertension Type 2 diabetes mellitus with hyperglycemia Hypercholesterolemia Osteoarthritis Insomnia GERD (gastroesophageal reflux disease) Diabetic nephropathy Bilateral carpal tunnel syndrome Surgical History History of D&C History of cholecystectomy History of section History of tubal ligation Family History Father Medical history unknown Mother Diabetes Hypertension Maternal Grandmother Pancreatic cancer Maternal Aunt Breast cancer Sister Breast cancer Social History Household Members: Family Housing: Apartment Are you a primary home care rn to a significant other at home: No Do you presently have visiting nurse or other home services: No Alcohol intake: never Patient Tobacco Use Status: Never used Tobacco Tobacco use type: Cigarette e-Cigarette/Vaping Use: Never Used Second Hand Smoke Exposure: Yes service: No Current occupational status: disabled Cognitive needs: No Hearing needs: No Vision needs: No Physical Exam Vital Signs: Last Vital Signs Pulse 80 02/16/25 09:52 BP 146/82 H 02/16/25 09:52 BMI result Body Mass Index 37.7 Assessment & Plan Assessment & Plan (1) Osteoarthritis: Code(s): M19.90 - Unspecified osteoarthritis, unspecified site Category: Medical Qualifiers: Osteoarthritis location: foot Osteoarthritis type: unspecified Laterality: unspecified laterality Qualified Code(s): M19.079 - Primary osteoarthritis, unspecified ankle and foot (2) Generalized joint pain: Code(s): M25.50 - Pain in unspecified joint Category: Medical (3) Fibromyalgia: Code(s): M79.7 - Fibromyalgia Category: Medical Plan Based on her history, physical exam blood work and imaging results her diffuse joint pain is attributed to wear and tear osteoarthritis and fibromyalgia. She had mildly elevated inflammatory markers ESR CRP however patient did not benefit at all from prednisone therefore making polymyalgia rheumatica very less likely. She has no clinical stigmata of inflammatory arthritis, SLE, rheumatoid arthritis, other connective tissue diseases. For fibromyalgia we discussed management of fibromyalgia with patient. Is a noninflammatory, non-autoimmune central afferent processing disorder leading to a diffuse pain syndrome. I suggested that patient try to address her underlying psychiatric issues, anxiety/depressio. Consider a referral for a sleep study by her PCP to rule out RENNY. Try to follow sleep hygiene practices. Patient would benefit from increased physical activity, either through formal physical therapy or by joining a gym. Advised patient that she should start activity slowly and increase as tolerated. Consider low-impact exercises such as walking, swimming, aqua therapy stretching, yoga. Patient is not interested in any medications for fibromyalgia at this time. Management deferred to PCP patient can follow up with me as needed. Medications: Discontinued prednisone take 3 pills daily total dose 15mg daily Discontinued Reason: Doctor's Order 5 mg PO TID 75 tabs 0RF for Coding Level of Care Code Est Pt Level 4 (36200) Diagnoses Osteoarthritis of foot, unspecified laterality, unspecified osteoarthritis type M19.079 Osteoarthritis location: foot Osteoarthritis type: unspecified Laterality: unspecified laterality Generalized joint pain M25.50 Fibromyalgia M79.7
[2025-02-16 09:52] VITALS: BP 146/82; PULSE 80; BMI 37.7
== END 2025-02-16 10:51 | disposition home or self-care (01) ==
LOC: HO.RHES 09:50
PROVIDERS: PCP Internal Medicine; Visit Provider Student in an Organized Health Care Education/Training Program
DX: M19.041 Primary osteoarthritis, right hand (principal); M19.042 Primary osteoarthritis, left hand; M51.35 Other intervertebral disc degeneration, thoracolumbar region; M79.7 Fibromyalgia; M19.011 Primary osteoarthritis, right shoulder
CPT/HCPCS: 99214

== ENCOUNTER → 2025-02-16 09:50 | Outpatient (BNVA) | payer OTHER, SELFPAY | PROVIDERS: PCP Internal Medicine; Visit Provider Student in an Organized Health Care Education/Training Program | DX: M19.071 Primary osteoarthritis, right ankle and foot (principal); M19.072 Primary osteoarthritis, left ankle and foot; M79.7 Fibromyalgia; M79.641 Pain in right hand; M79.642 Pain in left hand | CPT/HCPCS: 99212 ==

== ENCOUNTER 2025-02-26 09:25 | Outpatient (AMB) | payer OTHER, SELFPAY ==
[2025-02-26 09:27] VITALS: BP 142/86; BMI 38.1
--- NOTE | 2025-02-26 09:27 | MHC.OFFVIS ---
Vital Signs 02/26/25 09:27 Height 5 ft 3 in Weight 214 lb 15.211 oz BMI 38.1 BP 142/86 H Blood Pressure Location Lt brachial Position Sitting Intake Visit Reasons: T2DM Intake Note: Patient present today for Type 2 Diabetes Mellitus Last Diabetic eye exam: Last exam was in 11/2025 Last Podiatry Visit: Doesn't have one Random Glucose: 98 mg/dl HgA1C: 7.0% Enterprise Account Manager Required: Yes Enterprise Account Manager Language: Engineering Technician Parking Services: Enterprise Account Manager Present Enterprise Account Manager Name: Ling [id number] Information Interpreted: non-clinical & clinical Accompanied by: Self / Same As Patient Allergies egg Allergy (Severe, Verified 02/26/25 09:34) throat swells up milk Allergy (Severe, Verified 02/26/25 09:34) throat swells up avocado Allergy (Intermediate, Verified 02/26/25 09:34) lip swelling lisinopril Allergy (Unknown, Verified 02/26/25 09:34) Unknown dulaglutide (From Trulicity) Adverse Reaction (Intermediate, Verified 02/26/25 09:34) pancreatitis pioglitazone Adverse Reaction (Intermediate, Verified 02/26/25 09:34) Swelling HPI HPI T2DM: Details: Patient is a 53-year-old female with a significant past medical history of hypertension, hyperlipidemia, type 2 diabetes, peripheral vascular disease, diabetic nephropathy, and goiter presenting today for follow-up regarding her diabetes. Enterprise Account Manager: initial intrepreter shut off, Arias Alejandro [phone] Endo: DM-Last A1c was 7. She is currently on Jardiance 25 mg, metformin 500 mg daily, Tresiba 24 units at bedtime. Previous Meds: does not tolerate higher doses of metformin. pancreatitis while on trulicity. lantus caused swelling and join paints. Actos caused swelling CGM- GMI 5.8%. 0% very hyperglycemic, 1% hyperglycemic, 99% in range, 0% hypoglycemic. -She states the sensor is stating she is getting low blood sugars but does not feel that she is low in when she checks her blood sugars they are about 130. She is frustrated with the falsely low blood sugars and the discrepancy between the fingersticks and the sensor. She does admit to not doing as much exercise or eating as healthy as she was previously doing. on statin and arb neurpoathy-intermittently gets tingling but no loss of sensation or weakness. No pain . nephropathy- last urine 2022 shows microalbuminuria, does not see nephrolology, on arb. CV: bp today in the office is 142/86. She is currently on losartan 100 mg daily, atenolol 100 mg daily, amlodipine 10 mg. She states her blood pressure blood pressures is elevated because she never take medications prior to appointment days. States that normally her blood pressures are WNL at home. She is on atorvastatin 10 mg nightly [facility] Medical History (Updated 02/12/25 @ 10:00 by Nilam Bennett CNP) Muscle pain, myofascial Obesity Hypoxemia Witnessed apneic spells Eczema Hordeolum externum left eye, unspecified eyelid Obesity Headache History of acute respiratory distress syndrome (ARDS) Persistent insomnia Respiratory failure with hypoxia Pneumonia due to severe acute respiratory syndrome coronavirus 2 (SARS-CoV-2) COVID-19 virus infection Cavitary lesion of lung Obesity (BMI 30-39.9) Anxiety and depression Hypersomnia Acute neck sprain Post covid-19 condition, unspecified Restrictive lung disease Lower extremity edema Pneumonia COVID-19 virus infection Diabetic nephropathy associated with type 2 diabetes mellitus Diabetic neuropathy associated with type 2 diabetes mellitus Acute meniscal tear of right knee Right thyroid nodule Psoriasis Hypertension Type 2 diabetes mellitus with hyperglycemia Hypercholesterolemia Osteoarthritis Insomnia GERD (gastroesophageal reflux disease) Diabetic nephropathy Bilateral carpal tunnel syndrome Surgical History History of D&C History of cholecystectomy History of section History of tubal ligation Family History Father Medical history unknown Mother Diabetes Hypertension Maternal Grandmother Pancreatic cancer Maternal Aunt Breast cancer Sister Breast cancer Social History Household Members: Family Housing: Apartment Are you a primary complex care nurse practitioner to a significant other at home: No Do you presently have visiting nurse or other home services: No Alcohol intake: never Patient Tobacco Use Status: Never used Tobacco Tobacco use type: Cigarette e-Cigarette/Vaping Use: Never Used Second Hand Smoke Exposure: Yes service: No Current occupational status: disabled Cognitive needs: No Hearing needs: No Vision needs: No Physical Exam Vital Signs: Last Vital Signs BP 142/86 H 02/26/25 09:27 BMI result Body Mass Index 38.1 Const Orientation/consciousness: patient oriented x3 HEENT Ears: hearing grossly normal bilaterally Neck Thyroid: Thyroid normal Lymphatic: no lymphadenopathy noted Resp Auscultation: clear to auscultation bilaterally Cardio Rate: regular rate Rhythm: regular rhythm Heart sounds: S1 normal heart sound present and S2 normal heart sound present Skin General skin exam: no rashes or lesions noted Neuro General: patient oriented x3, gait normal and no focal motor deficits Results AMB Hemoglobin A1c AMB Hemoglobin A1c 7.0 % Last Edit by JENNIFER Pascual on 02/26/25 09:49 Assessment & Plan Assessment & Plan (1) Type 2 diabetes mellitus with hyperglycemia: Code(s): E11.65 - Type 2 diabetes mellitus with hyperglycemia Category: Medical Qualifiers: Diabetes mellitus ferry terminal supervisor insulin use: with assisted use Qualified Code(s): E11.65 - Type 2 diabetes mellitus with hyperglycemia; Z79.4 - assisted (current) use of insulin Plan: continue current treatment plan continue jardiance 25, metformin 500 mg daily, tresiba 24 units Two 2 sensors provided today. 1 month follow up (2) Hypertension: Code(s): I10 - Essential (primary) hypertension Category: Medical Qualifiers: Hypertension type: primary hypertension Qualified Code(s): I10 - Essential (primary) hypertension Plan: Elevated today. She is asymptomatic. Orders: Orders AMB Hemoglobin A1c Today E11.65 - Type 2 diabetes mellitus with hyperglycemia, Z13.9 - Encounter for screening, unspecified, Z79.4 - ferry terminal agent (current) use of insulin Referrals Podiatry Referral E11.65 - Type 2 diabetes mellitus with hyperglycemia, Z79.4 - assisted (current) use of insulin Medications: Changed From Tresiba FlexTouch U-100 (insulin degludec) 30 units (0.3 mL) subcut BEDTIME 15 mL 4RF NS To Tresiba FlexTouch U-100 (insulin degludec) 24 units (0.24 mL) subcut BEDTIME 15 mL 4RF NS Coding Level of Care Code Est Pt Level 4 (33774) Add On Problem Visit Only Diagnoses Type 2 diabetes mellitus with hyperglycemia, with long-term current use of insulin E11.65; Z79.4 Diabetes mellitus assisted insulin use: with ferry terminal supervisor use Primary hypertension I10 Hypertension type: primary hypertension
[2025-02-26 09:56] LABS: Glucose, Whole Blood 98 mg/dL (60-115)
== END 2025-02-26 10:07 | disposition home or self-care (01) ==
LOC: HO.ENCR 09:26
PROVIDERS: PCP Internal Medicine; Visit Provider Physician Assistant
DX: E11.65 Type 2 diabetes mellitus with hyperglycemia (principal); Z79.4 Long term (current) use of insulin; I10 Essential (primary) hypertension; Z13.9 Encounter for screening, unspecified

== ENCOUNTER → 2025-02-26 09:25 | Outpatient (BNVA) | payer OTHER, SELFPAY | PROVIDERS: PCP Internal Medicine; Visit Provider Physician Assistant | DX: E11.65 Type 2 diabetes mellitus with hyperglycemia (principal); I10 Essential (primary) hypertension; Z79.4 Long term (current) use of insulin | CPT/HCPCS: 82947; 83036; 99212 ==